=== PATIENT | female | born 1950 | race Caucasian/White ===

== ENCOUNTER 2021-04-04 10:51 | Outpatient (REF) | payer OTHER, SELFPAY ==
[2021-04-04 13:50] LABS: Hemoglobin 12.8 g/dl (12.0-16.0); Mean Corpuscular HGB Conc 32.8 g/dl (31.0-35.0); Mean Corpuscular Hemoglobin 30.5 pg (27.0-33.0); Mean Corpuscular Volume 93.1 fL (80-98); Mean Platelet Volume 10.4 fL (9.4-12.3); Platelet Count 272 X10*3/uL (160-400); Red Blood Count 4.19 X10*6/uL (4.20-5.50); Red Cell Distribution Width 14.8 % (11.0-16.0); White Blood Count 6.9 X10*3/uL (4.8-10.8)
[2021-04-04 14:27] LABS: Alanine Aminotransferase 26 U/L (0-31); Albumin Level 4.2 g/dL (3.5-5.0); Alkaline Phosphatase 85 U/L (39-117); Anion Gap 13 (12-20); Aspartate Amino Transferase 25 U/L (5-31); Bilirubin Total 0.5 mg/dL (0.0-1.0); Blood Urea Nitrogen 22 mg/dL (9-16); C Reactive Protein 0.54 mg/dL (< or = 0.50); Calcium 9.3 mg/dL (8.4-10.2); Carbon Dioxide 24 mmol/L (22-29); Chloride 106 mmol/L (96-108); Estimated Glomerular Filt Rate 40; Glucose Random 88 mg/dL (60-115); Potassium 4.9 mmol/L (3.3-5.1); Sodium 138 mmol/L (135-145); Total Protein 7.4 g/dL (6.5-8.0)
== END 2021-04-04 10:52 | disposition home or self-care (01) ==
LOC: HO.HMGCLDS 10:51
PROVIDERS: PCP Internal Medicine; Visit Provider Internal Medicine
DX: B02.9 Zoster without complications (principal); I10 Essential (primary) hypertension
CPT/HCPCS: 36415; 80053; 85027; 86140

== ENCOUNTER 2021-07-28 09:43 | Outpatient (REF) | payer OTHER, SELFPAY ==
[2021-07-28 11:42] LABS: Hematocrit 38.7 % (37-47); Hemoglobin 12.6 g/dl (12.0-16.0); Mean Corpuscular HGB Conc 32.6 g/dl (31.0-35.0); Mean Corpuscular Hemoglobin 31.2 pg (27.0-33.0); Mean Corpuscular Volume 95.8 fL (80-98); Mean Platelet Volume 10.8 fL (9.4-12.3); Platelet Count 279 X10*3/uL (160-400); Red Blood Count 4.04 X10*6/uL (4.20-5.50); Red Cell Distribution Width 13.6 % (11.0-16.0); White Blood Count 7.5 X10*3/uL (4.8-10.8)
[2021-07-28 11:44] LABS: Alanine Aminotransferase 18 U/L (0-31); Albumin Level 4.2 g/dL (3.5-5.0); Alkaline Phosphatase 90 U/L (39-117); Anion Gap 13 (12-20); Aspartate Amino Transferase 18 U/L (5-31); Bilirubin Total 0.5 mg/dL (0.0-1.0); Blood Urea Nitrogen 22 mg/dL (9-16); Calcium 9.6 mg/dL (8.4-10.2); Carbon Dioxide 23 mmol/L (22-29); Chloride 109 mmol/L (96-108); Cholesterol 208 mg/dL; Estimated Glomerular Filt Rate 40; Glucose Fasting 88 mg/dL (60-99); HDL Cholesterol 45 mg/dL; LDL Cholesterol Calculated 131 mg/dl; Potassium 4.7 mmol/L (3.3-5.1); Sodium 140 mmol/L (135-145); Total Protein 7.1 g/dL (6.5-8.0); Triglycerides 164 mg/dL
[2021-07-28 12:06] LABS: TSH reflex Free T4 2.31 uIU/mL (0.32-4.0)
== END 2021-07-28 09:44 | disposition home or self-care (01) ==
LOC: HO.HMGCLDS 09:43
PROVIDERS: PCP Internal Medicine; Visit Provider Internal Medicine
DX: E66.3 Overweight (principal); I10 Essential (primary) hypertension; M47.816 Spondylosis without myelopathy or radiculopathy, lumbar region
CPT/HCPCS: 36415; 80053; 80061; 84443; 85027

== ENCOUNTER 2022-03-10 13:09 | Emergency (ER) | payer OTHER, SELFPAY ==
--- NOTE | ~2022-03-10 | US_ITS ---
EXAMINATION: US VENOUS ULTRASOUND WITH DOPPLER LOWER EXTREMITY, LEFT CLINICAL INFORMATION: Swelling and pain COMPARISON: None TECHNIQUE: Ultrasound of the deep veins is performed from the hip to the calf with compression sonography and color and pulse Doppler assessment. Spectral analysis with color-flow imaging is performed. FINDINGS: There is normal venous compression and respiratory variation and augmented flow. The visualized common femoral vein, superficial femoral vein, profunda femoral vein, popliteal vein shows no evidence of deep venous thrombosis. Limited visualization/evaluation of the calf veins. There is no significant popliteal fossa cyst. . If the patient's symptoms persist, followup ultrasound in 5 days 7 days might be of value to exclude proximal propagation from a non-visualized calf vein. US/US venous duplex LE LT IMPRESSION: Evaluation limited by patient body habitus. No DVT demonstrated in the left lower extremity, extending from the common femoral vein to the popliteal vein. The calf veins are not well evaluated. If the patient's symptoms persist, followup ultrasound in 5 days 7 days might be of value to exclude proximal propagation from a non-visualized calf vein.
--- NOTE | ~2022-03-10 | CT_ITS ---
EXAMINATION: CT ABDOMEN AND PELVIS WITHOUT CONTRAST CLINICAL INFORMATION: Acute kidney insufficiency COMPARISON: None TECHNIQUE: Multidetector volumetric imaging was performed from the superior aspect of the liver through the pubic symphysis. Sagittal and coronal reformatted images were obtained on the technologist's workstation. This CT examination was performed using dose optimization techniques as appropriate, variously including the following: *Automated exposure control *Adjustment of mA and/or kV according to patient size (this includes techniques or standardized protocols for targeted exams where dose is matched to indication/reason for exam; i.e. extremities or head) *Use of iterative reconstruction technique DLP: 973 mGy-cm FINDINGS: LUNG BASES: The visualized lung bases are unremarkable. No pleural or pericardial effusion. LIVER, GALLBLADDER, AND BILIARY TREE: The liver is normal in size, shape, and attenuation. No focal hepatic lesion or biliary ductal dilatation is present. The gallbladder is unremarkable with no evidence of radiopaque gallstones, gallbladder wall thickening, or obvious pericholecystic inflammatory changes. PANCREAS: Unremarkable. SPLEEN: Unremarkable. ADRENAL GLANDS: Unremarkable. KIDNEYS AND URETERS: Right kidney: There is a 3 mm nonobstructing calculus within the interpolar region. No definite cortical thinning is appreciated. No hydronephrosis is seen. No focal lesion is appreciated. Right ureter appears unremarkable. Left kidney: There are 2, 2 mm nonobstructing calculi seen within the interpolar region. No hydronephrosis is present. No cortical thinning is appreciated. No solid lesions seen. Left ureter appears unremarkable. BLADDER: Unremarkable. GASTROINTESTINAL TRACT: No dilated loops of large or small bowel evident. No free air or free fluid is seen. No pericolonic inflammatory change. Appendix appears unremarkable. ABDOMINAL WALL: No significant hernia is appreciated. LYMPH NODES: No lymphadenopathy appreciated. VASCULAR: There is mild aortoiliac calcified plaque present. Calcified plaque is seen within both common femoral arteries and superficial femoral artery. No abdominal aortic aneurysm. PELVIC VISCERA: Unremarkable. OSSEOUS STRUCTURES: No suspicious destructive bony lesions identified. There is multilevel degenerative cysts disease seen throughout the lower thoracic and lumbar spine. CT/CT abdomen pelvis wo con IMPRESSION: Bilateral nephrolithiasis without evidence of obstructive uropathy or significant cortical thinning.
[2022-03-10 13:13] VITALS: PULSE 81; RESP 19; TEMP 36.6; O2SAT 98; BMI 39.1
--- NOTE | 2022-03-10 14:43 | ED_ITS ---
HPI - Extremity Problem General Chief complaint: Extremity Injury, Lower <ROSARIO Oropeza Last Filed: 03/10/22 18:25> Stated complaint: possible blood clot <ROSARIO Oropeza Last Filed: 03/10/22 18:25> Time Seen by Provider: 03/10/22 13:17 <ROSARIO Oropeza Last Filed: 03/10/22 18:25> Source: patient <ROSARIO Oropeza Last Filed: 03/10/22 18:25> Mode of arrival: ambulatory <ROSARIO Oropeza Last Filed: 03/10/22 18:25> Limitations: no limitations <ROSARIO Oropeza Last Filed: 03/10/22 18:25> History of Present Illness HPI Narrative: 71-year-old female with a past medical history of hypertension, hyperlipidemia, obesity, shingles, degenerative joint disease, TMJ since who is presenting to the ED with complaints of atraumatic left leg pain at the p osterior aspect/Calf for the past few days worse today. Reports that she feels pins and needles. She reports that she went to the urgent care and they recommended her to come here to have an ultrasound to rule out a DVT. She does report approximately 1-2 weeks ago she was dizzy in the shower and she had to lower herself down she does not believe that she injured her left leg although she went to urgent care and was told that she had a ear infection and was placed on antibiotics at that time. She does not remember if her left leg was hurt at that time She denies any fevers, chills, dizziness, headaches, neck pain/stiffness, trouble swallowing or breathing, chest pain or shortness of breath, dyspnea on exertion, orthopnea, palpitations, paresthesia, cough, sputum production, weight gain, history of PVD, recent travel or surgery, recent immobilization, history of hypercoagulation disorder or DVT or PE, any estrogen usage or any other symptoms complaints or concerns at this time. <ROSARIO Oropeza Last Filed: 03/10/22 18:25> MD Complaint: extremity pain and extremity swelling <ROSARIO Oropeza Last Filed: 03/10/22 18:25> Onset (ago): day(s) (Past few days ) <ROSARIO Oropeza Last Filed: 03/10/22 18:25> Pain Consistency: constant <ROSARIO Oropeza - Last Filed: 03/10/22 18:25> Location: left, lower extremity and knee <ROSARIO Oropeza - Last Filed: 03/10/22 18:25> Quality: aching and constant <ROSARIO Oropeza - Last Filed: 03/10/22 18:25> Radiation: distal <ROSARIO Oropeza - Last Filed: 03/10/22 18:25> Relieving factors: nothing <ROSARIO Oropeza Last Filed: 03/10/22 18:25> Exacerbating factors: palpation <ROSARIO Oropeza Last Filed: 03/10/22 18:25> Associated symptoms: denies other symptoms <ROSARIO Oropeza - Last Filed: 03/10/22 18:25> Related Data Home medications: Home Medications Medication Instructions Recorded Confirmed fluticasone propionate 50 1 spray INTRANASAL BID PRN 08/09/20 02/14/22 mcg/actuation nasal spray,suspension glucosamine sulfate 750 mg tablet 750 mg PO ONCE tab 08/09/20 02/14/22 hydroxyzine HCl 25 mg tablet 25 mg PO BID PRN 08/09/20 02/14/22 multivitamin 1 tab PO DAILY 08/09/20 02/14/22 amoxicillin 500 mg capsule 500 mg PO TID 02/14/22 02/14/22 Previous Rx's Medication Instructions Recorded tuvcisye-ezlbuvpud-ilbtddibp 3.5 4 drp OTIC (EAR) LEFT TID 10 Days 03/20/21 mg-10,000 unit/mL-1 % ear #10 ml drops,susp amlodipine 10 mg tablet 10 mg PO DAILY #90 tab 08/08/21 lorazepam 0.5 mg tablet 0.5 mg PO DAILY PRN #10 tab 08/15/21 lisinopril 20 mg tablet 20 mg PO DAILY #90 tab 11/07/21 cyclobenzaprine 10 mg tablet 10 mg PO Q8H PRN #14 tab 03/10/22 naproxen 500 mg tablet 500 mg PO BID PRN #14 tab 03/10/22 <ROSARIO Oropeza Last Filed: 03/10/22 18:25> Allergies/Adverse reactions: Allergies Allergy/AdvReac Type Severity Reaction Status Date / Time erythromycin base Allergy Unknown upset Verified 02/14/22 10:23 stomach nausea <ROSARIO Oropeza Last Filed: 03/10/22 18:25> Review of Systems Review of Systems: Constitutional : No Weight loss, No Fever, No Chills, No Night Sweats, No Fatigue, No Malaise ENT/Mouth : No Hearing loss, No Ear Pain, No Nasal Congestion, No Sinus Pain, No Hoarseness, No sore throat, No Rhinorrhea, No Swallowing Difficulty Eyes: No Eye Pain, No Swelling, No Redness, No Foreign Body, No Discharge, No Vision Changes Cardiovascular : + LLE pain/swelling, No Chest Pain, No SOB, No Dyspnea on Exertion, No Orthopnea, No Palpitations Respiratory : No Cough, No Sputum, No Wheezing, No Smoke Exposure, No Dyspnea Gastrointestinal : No Nausea, No Vomiting, No Diarrhea, No Constipation, No abdominal Pain, No Hematochezia, No Melena Genitourinary : no irregular bleeding, No Dysuria, No Urinary Frequency, No Hematuria, No Urinary Incontinence, No Urgency, No Flank Pain, No Urinary Flow Changes, No Hesitancy Musculoskeletal : No joint pain, No Myalgias, No Joint Swelling Skin : No Skin Lesions, No rash Neuro : No Weakness, No Numbness, No Paresthesias, No Loss of Consciousness, No Dizziness, No Headache Psych : No Anxiety/Panic, No Depression, No SI/HI/AH/VH, No Social Issues, Heme/Lymph: No Bruising, No Bleeding,No Lymphadenopathy Endocrine : No Polyuria, No Polydipsia, No Temperature Intolerance <ROSARIO Oropeza Last Filed: 03/10/22 18:25> Yes all other systems are reviewed and are negative <ROSARIO Oropeza - Last Filed: 03/10/22 18:25> [facility] Past Medical History Attestation statement: The following information was validated with the patient. <ROSARIO Oropeza Last Filed: 03/10/22 18:25> Source: nursing notes reviewed <ROSARIO Oropeza Last Filed: 03/10/22 18:25> Medical History: Medical History Annual physical exam Anxiety DJD (degenerative joint disease), lumbar HTN (hypertension) Hyperlipemia Mammogram normal Overweight Vaginal bleeding <ROSARIO Oropeza - Last Filed: 03/10/22 18:25> Surgical History: Surgical History H/O colonoscopy No pertinent past surgical history <ROSARIO Oropeza - Last Filed: 03/10/22 18:25> Family History Family History: Family History Father No problems noted. Mother HTN (hypertension) <ROSARIO Oropeza - Last Filed: 03/10/22 18:25> Social History Social History: Social History Housing: House Alcohol intake: current Alcohol intake frequency: a few times a month Patient Tobacco Use Status: Never used Tobacco e-Cigarette/Vaping Use: Never Used Second Hand Smoke Exposure: No Advance Directives: Yes Advance Directives Information Provided: No Advance Directives on File: No service: No Current occupational status: retired Cognitive needs: No Hearing needs: No Vision needs: Yes <ROSARIO Oropeza - Last Filed: 03/10/22 18:25> Physical Exam Vital Signs: Vital Signs: Last Vital Signs Temp 98 F 03/10/22 13:13 Pulse 75 03/10/22 19:20 Resp 14 03/10/22 19:20 BP 139/83 03/10/22 19:20 Pulse Ox 96 03/10/22 19:20 BMI result Body Mass Index 39.1 vital signs have been reviewed as normal and appeared to be correct. Blood pressure normal. Heart rate normal. Respiration rate normal. Temperature n ormal. Oxygen saturation normal. <ROSARIO Oropeza - Last Filed: 03/10/22 18:25> Vital Signs: Last Vital Signs Temp 98 F 03/10/22 13:13 Pulse 75 03/10/22 19:20 Resp 14 03/10/22 19:20 BP 139/83 03/10/22 19:20 Pulse Ox 96 03/10/22 19:20 BMI result Body Mass Index 39.1 <ROSARIO Awad - Last Filed: 03/10/22 21:23> Appearance: Alert. Oriented X3. No acute distress. Head: Normal external exam. Normocephalic. Atraumatic. Eyes: PERRLA. EOMI. Conjunctiva and sclera normal. Eyelids normal. ENT: Pharynx normal. Uvula midline. Moist mucous membranes. No lesions/ulcerations or masses noted on the tongue. Normal voice. No trismus noted. No drooling noted. No muffled voice noted. Neck: Normal inspection. Neck supple. FROM. No adenopathy. Thyroid Normal. No meningeal signs. No neck mass noted. CVS: Normal heart rate and rhythm. Heart sound normal. Pulses normal throughout. No murmurs/rales/gallops. Respiratory: No respiratory distress. Painless inspiration. Breath sounds normal. No wheezes/rales/rhonchi noted. Chest nontender. No accessory muscle usage noted or decreased air movement noted Abdomen: Soft and nontender. Bowel sounds normal in all 4 quadrants. No distention noted. No organomegaly noted. No visible injury noted. Back: Full range of motion noted. No signs of trauma. Patient neuro intact bilaterally and distally on all 4 extremities. Patient's reflexes intact bilaterally and distally on all 4 extremities. No rashes/lesion/induration/fluctuance or signs of infection noted. Skin: Skin warm and dry. Normal skin color. Normal skin turgor. No rashes/lesions/lacerations noted. Extremities: + left calf pain. No right Calf pain. No lower extremity edema. Extremities exhibit normal range of motion and nontender. Neuro: Oriented X 3. No motor deficit. No sensory deficit. Reflexes normal. Normal steady gait. No focal neuro deficits noted. CN's II-XII intact bilaterally? Vascular: + radial pulses/+ 2 distal pedal pulses/+2 dorsalis pedis b/l. Normal cap refill. No cyanosis noted to upper extremity nails and lower extremity toes nails. <ROSARIO Oropeza - Last Filed: 03/10/22 18:25> Course Course Course Narrative: 15pm - 71 year-old female presenting to the ED with complaints of atraumatic left leg pain at the posterior aspect/Calf for the past few days worse today. Reports that she feels pins and needles. She reports that she went to the urgent care and they recommended her to come here to have an ultrasound to rule out a DVT. She does report approximately 1-2 weeks ago she was dizzy in the shower and she had to lower herself down she does not believe that she injured her left leg although she went to urgent care and was told that she had a ear infection and was placed on antibiotics at that time. She does not remember if her left leg was hurt at that time Patient had ultrasound of her left lower extremity while she was in the waiting room and the ultrasound was limited due to body habitus although a revealed that the patient does not have any DVT in the left lower extremity extending from the common femoral vein to the popliteal vein. Although the calf veins are not well evaluated. Therefore they reported that if the patient's symptoms persisted she should had a repeat ultrasound in 5-7 days to exclude proximal propagation from a nonvisualized calf vein Plan: Therefore at this time will obtain labs including a D-dimer and provide naproxen and Flexeril and re-evaluate <ROSARIO Oropeza - Last Filed: 03/10/22 18:25> Reevaluation(s) Reevaluation #1: - labs reviewed patient with RBC of 4 which is similar compared to prior. Chloride 111. Carbon dioxide 18. BUN/creatinine 37/1.47 this is new when compared to prior. BNP at 134 otherwise all other labs including D-dimer negative and within normal limits. Therefore at this time I explained to the patient that I would want a urine and will obtain a CT scan of her abdomen pelvis without contrast to evaluate for any acute processes that can be causing her FAUSTO due to she reports she drinks lots of water. Will also give a L of IV fluids. Patient understands agrees with this plan. <ROSARIO Oropeza - Last Filed: 03/10/22 18:25> Time: 15:36 <ROSARIO Oropeza - Last Filed: 03/10/22 18:25> Reevaluation #2: - CT scan abdomen pelvis revealed bilateral nephrolithiasis otherwise no other acute processes only chronic changes. UA within normal limits no evidence of UTI - therefore patient most likely dehydration therefore patient going to be receiving 2 L of IV fluids then we will recheck the patient's chemistry if her BUN and creatinine improved patient can be discharged with follow-up with her PCP. Patient understands agrees with this plan. Sign out to MERRITT Colindres pending repeat BMP for BUN/Cr. <ROSARIO Oropeza - Last Filed: 03/10/22 18:25> Time: 17:40 <ROSARIO Oropeza - Last Filed: 03/10/22 18:25> Reevaluation #3: Patient is feeling well, requesting to go home. Repeat BMP with improvement in BUN and creatinine, appears to be around patient's baseline. Patient is tolerating p.o. fluids. Advised her to follow-up with her PCP, return with new or worsening symptoms. At this time I feel comfortable w/ disc harge home <ROSARIO Awad - Last Filed: 03/10/22 21:23> Time: 21:23 <ROSARIO Awad - Last Filed: 03/10/22 21:23> MDM - Extremity (Nontraumatic) Medical Records Attestation: I reviewed the patient's medical records. <ROSARIO Oropeza Last Filed: 03/10/22 18:25> Lab Data Attestation: I reviewed the patient's lab results. <ROSARIO Oropeza - Last Filed: 03/10/22 18:25> Result diagrams: : 03/10/22 15:04 03/10/22 20:37 <ROSARIO Oropeza - Last Filed: 03/10/22 18:25> Labs: Lab Results 03/10/22 03/10/22 03/10/22 Range/Units 15:04 15:04 15:04 WBC 7.7 (4.8-10.8) X10*3/uL RBC 4.00 L (4.20-5.50) X10*6/uL Hgb 12.4 (12.0-16.0) g/dl Hct 37.9 (37.0-47.0) % MCV 94.8 (80.0-98.0) fL MCH 31.0 (27.0-33.0) pg MCHC 32.7 (31.0-35.0) g/dl RDW 14.4 (11.0-16.0) % Plt Count 255 (160-400) X10*3/uL MPV 8.9 L (9.4-12.3) fL Immature Gran % (Auto) 0.1 (0.0-0.4) % Neut % (Auto) 77.2 H (45-73) % Lymph % (Auto) 14.1 L (20-40) % [place] % (Auto) 7.3 (2-11) % Eos % (Auto) 0.9 (0-4) % Baso % (Auto) 0.4 (0-2) % Lymph # (Auto) 1.1 L (1.2-4.9) X10*3/uL [place] # (Auto) 0.6 (0.1-1.2) X10*3/uL Eos # (Auto) 0.1 (0.0-0.4) X10*3/uL Baso # (Auto) 0.0 (0.0-0.2) X10*3/uL Abs Immat Gran (auto) 0.01 (0.00-0.03) X10*3/uL Absolute Neuts (auto) 6.0 (2.0-8.3) x10*3/uL Absolute Nucleated RBC 0.000 (0.0-0.012) X10*3/uL Nucleated RBC % (auto) 0.0 (0.0-0.2) /100WBC PT 10.4 (9.9-13.0) SEC INR 0.9 (0.9-1.1) D-Dimer High Sensitivty 168 NG/ML Sodium 139 (135-145) mmol/L Potassium 4.9 (3.3-5.1) mmol/L Chloride 111 H (96-108) mmol/L Carbon Dioxide 18 L (22-29) mmol/L Anion Gap 15 (12-20) BUN 37 H (9-16) mg/dL Creatinine 1.47 H (0.5-1.4) mg/dL Estim Creat Clear Calc 49.3 Estimated GFR 35 Random Glucose 105 (60-115) mg/dL Calcium 9.5 (8.4-10.2) mg/dL Magnesium 2.3 (1.6-2.6) mg/dL Total Bilirubin 0.2 (0.0-1.0) mg/dL AST 20 (5-31) U/L ALT 28 (0-31) U/L Alkaline Phosphatase 69 D (39-117) U/L Total Creatine Kinase 90 (26-140) U/L B-Natriuretic Peptide (<100) pg/mL Total Protein 7.1 (6.5-8.0) g/dL Albumin 4.2 (3.5-5.0) g/dL Urine Color Urine Appearance Urine pH (5.0-8.0) Ur Specific [place] (1.005-1.025) Urine Protein (NEG-TRACE) MG/DL Urine Glucose (UA) (NEG) MG/DL Urine Ketones (NEG) MG/DL Urine Blood (NEG) Urine Nitrite (NEG) Ur Leukocyte Esterase (NEG) 03/10/22 03/10/22 03/10/22 Range/Units 15:04 16:57 20:37 WBC (4.8-10.8) X10*3/uL RBC (4.20-5.50) X10*6/uL Hgb (12.0-16.0) g/dl Hct (37.0-47.0) % MCV (80.0-98.0) fL MCH (27.0-33.0) pg MCHC (31.0-35.0) g/dl RDW (11.0-16.0) % Plt Count (160-400) X10*3/uL MPV (9.4-12.3) fL Immature Gran % (Auto) (0.0-0.4) % Neut % (Auto) (45-73) % Lymph % (Auto) (20-40) % [place] % (Auto) (2-11) % Eos % (Auto) (0-4) % Baso % (Auto) (0-2) % Lymph # (Auto) (1.2-4.9) X10*3/uL [place] # (Auto) (0.1-1.2) X10*3/uL Eos # (Auto) (0.0-0.4) X10*3/uL Baso # (Auto) (0.0-0.2) X10*3/uL Abs Immat Gran (auto) (0.00-0.03) X10*3/uL Absolute Neuts (auto) (2.0-8.3) x10*3/uL Absolute Nucleated RBC (0.0-0.012) X10*3/uL Nucleated RBC % (auto) (0.0-0.2) /100WBC PT (9.9-13.0) SEC INR (0.9-1.1) D-Dimer High Sensitivty NG/ML Sodium 141 (135-145) mmol/L Potassium 4.4 (3.3-5.1) mmol/L Chloride 116 H (96-108) mmol/L Carbon Dioxide 16 L (22-29) mmol/L Anion Gap 13 (12-20) BUN 32 H (9-16) mg/dL Creatinine 1.28 (0.5-1.4) mg/dL Estim Creat Clear Calc 56.6 Estimated GFR 41 Random Glucose 120 H (60-115) mg/dL Calcium 8.6 D (8.4-10.2) mg/dL Magnesium (1.6-2.6) mg/dL Total Bilirubin (0.0-1.0) mg/dL AST (5-31) U/L ALT (0-31) U/L Alkaline Phosphatase (39-117) U/L Total Creatine Kinase (26-140) U/L B-Natriuretic Peptide 134 H (<100) pg/mL Total Protein (6.5-8.0) g/dL Albumin (3.5-5.0) g/dL Urine Color STRAW Urine Appearance CLEAR Urine pH 5.5 (5.0-8.0) Ur Specific [place] 1.015 (1.005-1.025) Urine Protein NEG (NEG-TRACE) MG/DL Urine Glucose (UA) NEG (NEG) MG/DL Urine Ketones NEG (NEG) MG/DL Urine Blood NEG (NEG) Urine Nitrite NEG (NEG) Ur Leukocyte Esterase NEG (NEG) <ROSARIO Oropeza - Last Filed: 03/10/22 18:25> Lab Results 03/10/22 03/10/22 03/10/22 Range/Units 15:04 15:04 15:04 WBC 7.7 (4.8-10.8) X10*3/uL RBC 4.00 L (4.20-5.50) X10*6/uL Hgb 12.4 (12.0-16.0) g/dl Hct 37.9 (37.0-47.0) % MCV 94.8 (80.0-98.0) fL MCH 31.0 (27.0-33.0) pg MCHC 32.7 (31.0-35.0) g/dl RDW 14.4 (11.0-16.0) % Plt Count 255 (160-400) X10*3/uL MPV 8.9 L (9.4-12.3) fL Immature Gran % (Auto) 0.1 (0.0-0.4) % Neut % (Auto) 77.2 H (45-73) % Lymph % (Auto) 14.1 L (20-40) % [place] % (Auto) 7.3 (2-11) % Eos % (Auto) 0.9 (0-4) % Baso % (Auto) 0.4 (0-2) % Lymph # (Auto) 1.1 L (1.2-4.9) X10*3/uL [place] # (Auto) 0.6 (0.1-1.2) X10*3/uL Eos # (Auto) 0.1 (0.0-0.4) X10*3/uL Baso # (Auto) 0.0 (0.0-0.2) X10*3/uL Abs Immat Gran (auto) 0.01 (0.00-0.03) X10*3/uL Absolute Neuts (auto) 6.0 (2.0-8.3) x10*3/uL Absolute Nucleated RBC 0.000 (0.0-0.012) X10*3/uL Nucleated RBC % (auto) 0.0 (0.0-0.2) /100WBC PT 10.4 (9.9-13.0) SEC INR 0.9 (0.9-1.1) D-Dimer High Sensitivty 168 NG/ML Sodium 139 (135-145) mmol/L Potassium 4.9 (3.3-5.1) mmol/L Chloride 111 H (96-108) mmol/L Carbon Dioxide 18 L (22-29) mmol/L Anion Gap 15 (12-20) BUN 37 H (9-16) mg/dL Creatinine 1.47 H (0.5-1.4) mg/dL Estim Creat Clear Calc 49.3 Estimated GFR 35 Random Glucose 105 (60-115) mg/dL Calcium 9.5 (8.4-10.2) mg/dL Magnesium 2.3 (1.6-2.6) mg/dL Total Bilirubin 0.2 (0.0-1.0) mg/dL AST 20 (5-31) U/L ALT 28 (0-31) U/L Alkaline Phosphatase 69 D (39-117) U/L Total Creatine Kinase 90 (26-140) U/L B-Natriuretic Peptide (<100) pg/mL Total Protein 7.1 (6.5-8.0) g/dL Albumin 4.2 (3.5-5.0) g/dL Urine Color Urine Appearance Urine pH (5.0-8.0) Ur Specific [place] (1.005-1.025) Urine Protein (NEG-TRACE) MG/DL Urine Glucose (UA) (NEG) MG/DL Urine Ketones (NEG) MG/DL Urine Blood (NEG) Urine Nitrite (NEG) Ur Leukocyte Esterase (NEG) 03/10/22 03/10/22 03/10/22 Range/Units 15:04 16:57 20:37 WBC (4.8-10.8) X10*3/uL RBC (4.20-5.50) X10*6/uL Hgb (12.0-16.0) g/dl Hct (37.0-47.0) % MCV (80.0-98.0) fL MCH (27.0-33.0) pg MCHC (31.0-35.0) g/dl RDW (11.0-16.0) % Plt Count (160-400) X10*3/uL MPV (9.4-12.3) fL Immature Gran % (Auto) (0.0-0.4) % Neut % (Auto) (45-73) % Lymph % (Auto) (20-40) % [place] % (Auto) (2-11) % Eos % (Auto) (0-4) % Baso % (Auto) (0-2) % Lymph # (Auto) (1.2-4.9) X10*3/uL [place] # (Auto) (0.1-1.2) X10*3/uL Eos # (Auto) (0.0-0.4) X10*3/uL Baso # (Auto) (0.0-0.2) X10*3/uL Abs Immat Gran (auto) (0.00-0.03) X10*3/uL Absolute Neuts (auto) (2.0-8.3) x10*3/uL Absolute Nucleated RBC (0.0-0.012) X10*3/uL Nucleated RBC % (auto) (0.0-0.2) /100WBC PT (9.9-13.0) SEC INR (0.9-1.1) D-Dimer High Sensitivty NG/ML Sodium 141 (135-145) mmol/L Potassium 4.4 (3.3-5.1) mmol/L Chloride 116 H (96-108) mmol/L Carbon Dioxide 16 L (22-29) mmol/L Anion Gap 13 (12-20) BUN 32 H (9-16) mg/dL Creatinine 1.28 (0.5-1.4) mg/dL Estim Creat Clear Calc 56.6 Estimated GFR 41 Random Glucose 120 H (60-115) mg/dL Calcium 8.6 D (8.4-10.2) mg/dL Magnesium (1.6-2.6) mg/dL Total Bilirubin (0.0-1.0) mg/dL AST (5-31) U/L ALT (0-31) U/L Alkaline Phosphatase (39-117) U/L Total Creatine Kinase (26-140) U/L B-Natriuretic Peptide 134 H (<100) pg/mL Total Protein (6.5-8.0) g/dL Albumin (3.5-5.0) g/dL Urine Color STRAW Urine Appearance CLEAR Urine pH 5.5 (5.0-8.0) Ur Specific [place] 1.015 (1.005-1.025) Urine Protein NEG (NEG-TRACE) MG/DL Urine Glucose (UA) NEG (NEG) MG/DL Urine Ketones NEG (NEG) MG/DL Urine Blood NEG (NEG) Urine Nitrite NEG (NEG) Ur Leukocyte Esterase NEG (NEG) <ROSARIO Awad - Last Filed: 03/10/22 21:23> Imaging Data Venous duplex ultrasound of left lower: Attestation: I personally reviewed and interpreted this imaging study as follows: <ROSARIO Oropeza - Last Filed: 03/10/22 18:25> Radiologist's impression: FINDINGS: There is normal venous compression and respiratory variation and augmented flow. The visualized common femoral vein, superficial femoral vein, profunda femoral vein, popliteal vein shows no evidence of deep venous thrombosis. Limited visualization/evaluation of the calf veins. There is no significant popliteal fossa cyst. . If the patient's symptoms persist, followup ultrasound in 5 days 7 days might be of value to exclude proximal propagation from a non-visualized calf vein. US/US venous duplex LE LT IMPRESSION: Evaluation limited by patient body habitus. ? No DVT demonstrated in the left lower extremity, extending from the common femoral vein to the popliteal vein. The calf veins are not well evaluated. ? ?If the patient's symptoms persist, followup ultrasound in 5 days 7 days might be of value to exclude proximal propagation from a non-visualized calf vein. <ROSARIO Oropeza - Last Filed: 03/10/22 18:25> CT scan abdomen pelvis without IV contrast: Attestation: I personally reviewed and interpreted this imaging study as follows: <ROSARIO Oropeza - Last Filed: 03/10/22 18:25> Radiologist's impression: FINDINGS: LUNG BASES: The visualized lung bases are unremarkable. No pleural or pericardial effusion. LIVER, GALLBLADDER, AND BILIARY TREE: The liver is normal in size, shape, and attenuation. No focal hepatic lesion or biliary ductal dilatation is present. The gallbladder is unremarkable with no evidence of radiopaque gallstones, gallbladder wall thickening, or obvious pericholecystic inflammatory changes.? PANCREAS: Unremarkable.? SPLEEN: Unremarkable.? ADRENAL GLANDS: Unremarkable.? KIDNEYS AND URETERS: Right kidney: There is a 3 mm nonobstructing calculus within the interpolar region. No definite cortical thinning is appreciated. No hydronephrosis is seen. No focal lesion is appreciated. Right ureter appears unremarkable. Left kidney: There are 2, 2 mm nonobstructing calculi seen within the interpolar region. No hydronephrosis is present. No cortical thinning is appreciated. No solid lesions seen. Left ureter appears unremarkable. BLADDER: Unremarkable.? GASTROINTESTINAL TRACT: No dilated loops of large or small bowel evident. No free air or free fluid is seen. No pericolonic inflammatory change. Appendix appears unremarkable.? ABDOMINAL WALL: No significant hernia is appreciated.? LYMPH NODES: No lymphadenopathy appreciated. VASCULAR: There is mild aortoiliac calcified plaque present. Calcified plaque is seen within both common femoral arteries and superficial femoral artery. No abdominal aortic aneurysm. PELVIC VISCERA: Unremarkable.? OSSEOUS STRUCTURES: No suspicious destructive bony lesions identified. There is multilevel degenerative cysts disease seen throughout the lower thoracic and lumbar spine.? CT/CT abdomen pelvis wo con IMPRESSION: Bilateral nephrolithiasis without evidence of obstructive uropathy or significant cortical thinning.? ? ? <ROSARIO Oropeza - Last Filed: 03/10/22 18:25> Critical Care Time Critical Care Time Critical Care Time: Yes <ROSARIO Oropeza - Last Filed: 03/10/22 18:25> Total Critical Care Time: 60 <ROSARIO Oropeza - Last Filed: 03/10/22 18:25> Attestation: I personally attest to this time spent taking care of the patient <ROSARIO Oropeza - Last Filed: 03/10/22 18:25> Discharge Plan Discharge Clinical Impression: Muscle strain of left lower extremity, FAUSTO (acute kidney injury) <ROSARIO Oropeza - Last Filed: 03/10/22 18:25> Patient Disposition: Home, Self-Care <ROSARIO Oropeza - Last Filed: 03/10/22 18:25> Instructions: Muscle Strain (ED), Acute Kidney Injury (DC) <ROSARIO Oropeza - Last Filed: 03/10/22 18:25> Additional Instructions: Take your medications as prescribed. If you were prescribed antibiotics today, it is important that you take your medication to their entirety, do not skip any doses, do not finish them early. Follow-up with your primary care provider this week. Return to the emergency department with new or worsening symptoms. Such as fevers, chills, chest pain, shortness of breath, nausea, vomiting, dizziness, headache, vision changes, lethargy In case of emergency call 911 CT/CT abdomen pelvis wo con IMPRESSION: Bilateral nephrolithiasis without evidence of obstructive uropathy or significant cortical thinning.? ? US/US venous duplex LE LT IMPRESSION: Evaluation limited by patient body habitus. ? No DVT demonstrated in the left lower extremity, extending from the common femoral vein to the popliteal vein. The calf veins are not well evaluated. ? ?If the patient's symptoms persist, followup ultrasound in 5 days 7 days might be of value to exclude proximal propagation from a non-visualized calf vein. <ROSARIO Oropeza - Last Filed: 03/10/22 18:25> Prescriptions: New naproxen 500 mg tablet 500 mg PO BID PRN (Reason: pain) Qty: 14 0RF cyclobenzaprine 10 mg tablet 10 mg PO Q8H PRN (Reason: Muscle spasm) Qty: 14 0RF No Action amlodipine 10 mg tablet 10 mg PO DAILY Qty: 90 3RF lisinopril 20 mg tablet 20 mg PO DAILY Qty: 90 3RF hydroxyzine HCl 25 mg tablet 25 mg PO BID PRN (Reason: anxiety) 0RF fluticasone propionate 50 mcg/actuation spray,suspension 1 spray intranasal BID PRN (Reason: congestion) 0RF glucosamine sulfate 750 mg tablet 750 mg PO ONCE 0RF Rx Instructions: administer with meals multivitamin Tablet 1 tab PO DAILY 0RF uwmppqyc-aoscrqyud-JR 3.5-10,000-1 mg/mL-unit/mL-% drops,suspension 4 drp otic (ear) left TID 10 Days Qty: 10 0RF lorazepam 0.5 mg tablet 0.5 mg PO DAILY PRN (Reason: anxiety) Qty: 10 0RF amoxicillin 500 mg capsule 500 mg PO TID 0RF <ROSARIO Oropeza - Last Filed: 03/10/22 18:25> Referrals: Viola Mack MD [Primary Care Provider] - 2 days <ROSARIO Oropeza - Last Filed: 03/10/22 18:25>
[2022-03-10] MEDS: NaPROXEN 500 MG TABLET PO (14:59)
[2022-03-10] MEDS: Cyclobenzaprine HCl 10 MG TABLET PO (15:00)
[2022-03-10 15:05] VITALS: BP 140/48; PULSE 74; RESP 18; O2SAT 96
[2022-03-10 15:09] LABS: Basophils Percent Auto 0.4 % (0-2); Eosinophils Absolute Auto 0.1 X10*3/uL (0.0-0.4); Eosinophils Percent Auto 0.9 % (0-4); Hematocrit 37.9 % (37.0-47.0); Hemoglobin 12.4 g/dl (12.0-16.0); Imm Gran Abs Auto 0.01 X10*3/uL (0.00-0.03); Imm Gran Pct Auto 0.1 % (0.0-0.4); Lymphocytes Absolute Auto 1.1 X10*3/uL (1.2-4.9); Lymphocytes Percent Auto 14.1 % (20-40); MANUAL DIFF FLAG NO; Mean Corpuscular HGB Conc 32.7 g/dl (31.0-35.0); Mean Corpuscular Volume 94.8 fL (80.0-98.0); Mean Platelet Volume 8.9 fL (9.4-12.3); Monocytes Absolute Auto 0.6 X10*3/uL (0.1-1.2); Monocytes Percent Auto 7.3 % (2-11); Neutrophils Percent Auto 77.2 % (45-73); Platelet Count 255 X10*3/uL (160-400); Red Cell Distribution Width 14.4 % (11.0-16.0); White Blood Count 7.7 X10*3/uL (4.8-10.8)
[2022-03-10 15:14] LABS: INTERNATIONAL NORM RATIO 0.9 (0.9-1.1); Prothrombin Time 10.4 SEC (9.9-13.0)
[2022-03-10 15:16] LABS: D Dimer High Sensitivity 168 NG/ML
[2022-03-10 15:28] LABS: Alanine Aminotransferase 28 U/L (0-31); Albumin Level 4.2 g/dL (3.5-5.0); Alkaline Phosphatase 69 U/L (39-117); Anion Gap 15 (12-20); Aspartate Amino Transferase 20 U/L (5-31); Bilirubin Total 0.2 mg/dL (0.0-1.0); Blood Urea Nitrogen 37 mg/dL (9-16); Calcium 9.5 mg/dL (8.4-10.2); Carbon Dioxide 18 mmol/L (22-29); Chloride 111 mmol/L (96-108); Creatinine Clr Calc Pharmacy 49.3; Estimated Glomerular Filt Rate 35; Glucose Random 105 mg/dL (60-115); Magnesium 2.3 mg/dL (1.6-2.6); Potassium 4.9 mmol/L (3.3-5.1); Sodium 139 mmol/L (135-145); Total Protein 7.1 g/dL (6.5-8.0)
[2022-03-10 15:39] LABS: B Type Natriuretic Peptide 134 pg/mL (<100)
[2022-03-10 16:13] VITALS: BP 133/31; PULSE 75; RESP 18; O2SAT 96
[2022-03-10 17:03] LABS: Appearance Urine CLEAR; Color Urine STRAW; Glucose Urine UA NEG (NEG); Leukocyte Esterase Urine NEG (NEG); Nitrite Urine NEG (NEG); PH 5.5 (5.0-8.0); Specific Gravity - Urine 1.015 (1.005-1.025); Urine Blood NEG (NEG); Urine Ketones NEG (NEG); Urine Protein NEG (NEG-TRACE)
[2022-03-10] MEDS: 0.9 % Sodium Chloride 1,000 ML 999 ML IVCONT ×2 (17:35→18:41)
[2022-03-10 19:20] VITALS: BP 139/83; PULSE 75; RESP 14; O2SAT 96
[2022-03-10] MEDS: 0.9 % Sodium Chloride 1,000 ML 999 ML IV (20:04)
[2022-03-10 21:10] LABS: Anion Gap 13 (12-20); Blood Urea Nitrogen 32 mg/dL (9-16); Calcium 8.6 mg/dL (8.4-10.2); Carbon Dioxide 16 mmol/L (22-29); Chloride 116 mmol/L (96-108); Creatinine Clr Calc Pharmacy 56.6; Estimated Glomerular Filt Rate 41; Glucose Random 120 mg/dL (60-115); Potassium 4.4 mmol/L (3.3-5.1); Sodium 141 mmol/L (135-145)
[2022-03-10 21:29] VITALS: BP 149/57; PULSE 78; RESP 18; TEMP 36.8; O2SAT 96
== END 2022-03-10 21:44 | disposition home or self-care (01) ==
PROVIDERS: Physician Assistant Medical; Emergency Provider Student in an Organized Health Care Education/Training Program; PCP Internal Medicine
DX: S86.912A Strain of unspecified muscle(s) and tendon(s) at lower leg level, left leg, initial encounter (principal); N17.9 Acute kidney failure, unspecified; R06.02 Shortness of breath; R10.9 Unspecified abdominal pain; M79.662 Pain in left lower leg; X58.XXXA Exposure to other specified factors, initial encounter; Y93.9 Activity, unspecified; Y92.9 Unspecified place or not applicable; Y99.9 Unspecified external cause status; R60.0 Localized edema; Z79.899 Other long term (current) drug therapy
CPT/HCPCS: 36415; 74176; 80048; 80053; 81003; 82550; 83735; 83880; 85025; 85379; 85610; 93971; 96365; 96366; 99284

== ENCOUNTER 2022-07-31 10:26 | Outpatient (REF) | payer OTHER, SELFPAY ==
[2022-07-31 14:07] LABS: Hematocrit 37.2 % (37.0-47.0); Mean Corpuscular HGB Conc 32.3 g/dl (31.0-35.0); Mean Corpuscular Hemoglobin 31.2 pg (27.0-33.0); Mean Corpuscular Volume 96.6 fL (80.0-98.0); Mean Platelet Volume 10.4 fL (9.4-12.3); Platelet Count 292 X10*3/uL (160-400); Red Blood Count 3.85 X10*6/uL (4.20-5.50); Red Cell Distribution Width 14.6 % (11.0-16.0); White Blood Count 8.2 X10*3/uL (4.8-10.8)
[2022-07-31 14:25] LABS: Alanine Aminotransferase 19 U/L (0-31); Albumin Level 4.1 g/dL (3.5-5.0); Alkaline Phosphatase 75 U/L (39-117); Anion Gap 15 (12-20); Aspartate Amino Transferase 19 U/L (5-31); Bilirubin Direct < 0.2 mg/dL (0.0-0.5); Bilirubin Total 0.2 mg/dL (0.0-1.0); Blood Urea Nitrogen 30 mg/dL (9-16); C Reactive Protein 0.35 mg/dL (< or = 0.50); Calcium 9.4 mg/dL (8.4-10.2); Carbon Dioxide 20 mmol/L (22-29); Chloride 110 mmol/L (96-108); Estimated Glomerular Filt Rate 35; Glucose Random 92 mg/dL (60-115); Potassium 5.3 mmol/L (3.3-5.1); Sodium 140 mmol/L (135-145); Total Protein 6.9 g/dL (6.5-8.0)
== END 2022-07-31 10:27 | disposition home or self-care (01) ==
LOC: HO.HMGCLDS 10:26
PROVIDERS: PCP Internal Medicine; Visit Provider Internal Medicine
DX: R51.9 Headache, unspecified (principal)
CPT/HCPCS: 36415; 80048; 80076; 85027; 86140

== ENCOUNTER 2022-08-06 10:26 | Outpatient (REF) | payer OTHER, SELFPAY ==
[2022-08-06 11:56] LABS: Hematocrit 36.2 % (37.0-47.0); Hemoglobin 11.9 g/dl (12.0-16.0); Mean Corpuscular HGB Conc 32.9 g/dl (31.0-35.0); Mean Corpuscular Hemoglobin 31.1 pg (27.0-33.0); Mean Corpuscular Volume 94.5 fL (80.0-98.0); Mean Platelet Volume 9.9 fL (9.4-12.3); Platelet Count 282 X10*3/uL (160-400); Red Blood Count 3.83 X10*6/uL (4.20-5.50); Red Cell Distribution Width 14.3 % (11.0-16.0)
[2022-08-06 12:17] LABS: Alanine Aminotransferase 19 U/L (0-31); Albumin Level 4.2 g/dL (3.5-5.0); Alkaline Phosphatase 81 U/L (39-117); Anion Gap 14 (12-20); Aspartate Amino Transferase 17 U/L (5-31); Bilirubin Total 0.4 mg/dL (0.0-1.0); Blood Urea Nitrogen 30 mg/dL (9-16); Calcium 9.6 mg/dL (8.4-10.2); Carbon Dioxide 23 mmol/L (22-29); Chloride 106 mmol/L (96-108); Cholesterol 256 mg/dL; Estimated Glomerular Filt Rate 38; Glucose Fasting 80 mg/dL (60-99); HDL Cholesterol 61 mg/dL; LDL Cholesterol Calculated 169 mg/dl; Potassium 4.8 mmol/L (3.3-5.1); Sodium 138 mmol/L (135-145); Triglycerides 132 mg/dL
[2022-08-06 12:37] LABS: TSH reflex Free T4 3.08 uIU/mL (0.32-4.0)
== END 2022-08-06 10:27 | disposition home or self-care (01) ==
LOC: HO.HMGCLDS 10:26
PROVIDERS: PCP Internal Medicine; Visit Provider Internal Medicine
DX: E78.5 Hyperlipidemia, unspecified (principal); I10 Essential (primary) hypertension
CPT/HCPCS: 36415; 80053; 80061; 84443; 85027

== ENCOUNTER 2022-08-09 07:02 | Emergency (ER) | payer OTHER, SELFPAY ==
--- NOTE | ~2022-08-09 | CT_ITS ---
EXAMINATION: CT HEAD WITHOUT CONTRAST CLINICAL INFORMATION: Near syncope COMPARISON: None. TECHNIQUE: Contiguous axial imaging was performed from the skull base to vertex without intravenous contrast. This CT examination was performed using dose optimization techniques as appropriate, variously including the following: * Automated exposure control * Adjustment of mA and/or kV according to patient size (this includes techniques or standardized protocols for targeted exams where dose is matched to indication/reason for exam; i.e. extremities or head) Use of iterative reconstruction technique DLP: 607 mGy-cm. FINDINGS: There is no evidence of acute intracranial hemorrhage or territorial infarction. No abnormal mass effect or midline shift is seen. Lala to white matter differentiation is well preserved. No extra-axial fluid collections are identified. No hydrocephalus. No significant volume loss. There is no abnormal attenuation within the brain parenchyma. The osseous structures and soft tissues are normal. The mastoid air cells and visualized portions of the paranasal sinuses are well aerated. CT/CT head/brain wo IV con IMPRESSION: No acute intracranial pathology.
[2022-08-09 07:53] VITALS: BP 151/61; PULSE 75; RESP 12; TEMP 36.4; O2SAT 99; BMI 39.1
[2022-08-09 08:00] VITALS: PULSE 72; RESP 14; O2SAT 99
--- NOTE | 2022-08-09 08:01 | PC.NURSE ---
Pt alert and oriented, respirations even and unlabored. NSR on monitor. Pt states that she had a recent sinus infection and was seen at the [facility] in [place] where she was prescribed antibiotics with positive effect.
--- NOTE | 2022-08-09 08:09 | ED.GENADULT ---
HPI - General Adult General Chief complaint: General Medical Stated complaint: Head Pain Radiating to Neck Heart Racing Time Seen by Provider: 08/09/22 08:05 Source: patient Mode of arrival: ambulatory Limitations: no limitations History of Present Illness HPI narrative: Patient is a 72 year old assigned female at with a history of CKD, HTN, and DJD presenting to the emergency department today with head and neck pain. Patient states that she has been having head and neck pain for the last 3 months. Patient states that at one point she also had nasal congestion and was treated for a sinus infection and that cleared up but the pain has persisted. Patient states that she has previously been to [facility] for her lower back but has never been seen for her neck. Patient denies any dizziness, lightheadedness, abdominal pain, nausea, vomiting, fever, chills, blurry vision, double vision, loss of vision, chest pain, difficulty breathing, shortness of breath, back pain, night sweats, pain with urination, increased urinary frequency, increased urinary urgency, blood in her urine or stool, syncope or a near syncopal episode, recent trauma or falls, bowel incontinence, bladder incontinence, bowel retention, bladder retention, or any other complaints at this time. Onset (ago): month(s) (3) Location: head and neck Radiation: non-radiation Severity: mild Severity scale (1-10): 2 Quality: dull Pain Consistency: intermittent Relieving factors: none Exacerbating factors: none Associated symptoms: denies other symptoms Treatments prior to arrival: none Related Data Home Medications Medication Instructions Recorded Confirmed fluticasone propionate 50 1 spray intranasal BID PRN 08/09/20 02/14/22 mcg/actuation nasal congestion spray,suspension glucosamine sulfate 750 mg tablet 750 mg PO ONCE 08/09/20 02/14/22 hydroxyzine HCl 25 mg tablet 25 mg PO BID PRN anxiety 08/09/20 02/14/22 multivitamin 1 tab PO DAILY 08/09/20 02/14/22 amoxicillin 500 mg capsule 500 mg PO TID 02/14/22 02/14/22 Previous Rx's Medication Instructions Recorded [id number]-wvbkijdra-pbkycbgey 3.5 4 drp otic (ear) left TID 10 days 03/20/21 mg-10,000 unit/mL-1 % ear #10 mL drops,susp lorazepam 0.5 mg tablet 0.5 mg PO DAILY PRN anxiety #10 08/15/21 tabs lisinopril 20 mg tablet 20 mg PO DAILY #90 tabs 11/07/21 cyclobenzaprine 10 mg tablet 10 mg PO Q8H PRN Muscle spasm #14 03/10/22 tabs naproxen 500 mg tablet 500 mg PO BID PRN pain #14 tabs 03/10/22 cyclobenzaprine 10 mg tablet 10 mg PO BEDTIME #14 tabs 07/30/22 meloxicam 15 mg tablet 15 mg PO DAILY #14 tabs 07/30/22 amlodipine 10 mg tablet 10 mg PO DAILY #90 tabs 08/02/22 Allergies Allergy/AdvReac Type Severity Reaction Status Date / Time erythromycin base Allergy Unknown upset Verified 07/30/22 16:24 stomach nausea Review of Systems Constitutional: Constitutional: Reports no additional constitutional complaints, Denies chills, Denies fever(s), Reports headache(s) and Denies night sweats Eyes: Eyes: Reports no additional eye complaints, Denies blurry vision, Denies change in vision, Denies diplopia, Denies eye discharge, Denies loss of vision and Denies eye pain ENT: Denies dizziness, Reports headache(s) and Reports neck pain Cardiovascular: Cardiovascular: Reports no additional cardiovascular complaints, Denies chest pain, Denies lightheadedness, Denies Loss of Consciousness and Denies dyspnea Respiratory: Respiratory: Reports no additional respiratory complaints and Denies dyspnea Gastrointestinal: Gastrointestinal: Reports no additional gastrointestinal complaints, Denies abdominal pain, Denies melena, Denies hematochezia, Denies change in bowel habits and Denies change in stool character Genitourinary: Genitourinary: Denies hematuria, Denies urinary frequency, Denies dysuria, Denies urinary incontinence, Denies urinary hesitancy and Denies urinary urgency Musculoskeletal: Musculoskeletal: Reports no additional musculoskeletal complaints, Reports neck pain, Denies numbness and Denies tingling Neurologic: Denies dizziness, Reports headache(s), Denies loss of vision, Denies numbness and Denies tingling Psychiatric: Psychiatric: Reports no additional psychiatric complaints Endocrine: Endocrine: Reports no additional endocrine complaints Hematologic/Lymphatic: Hematologic/Lymphatic: Reports no additional hematologic/lymphatic complaints Allergic/Immunologic: Allergic/Immunologic: Reports no additional allergic/immunologic complaints PMFSH Past Medical History Attestation statement: The following information was validated with the patient. Source: old records reviewed Medical History Annual physical exam Anxiety DJD (degenerative joint disease), lumbar HTN (hypertension) Hyperlipemia Mammogram normal Overweight Vaginal bleeding Surgical History H/O colonoscopy No pertinent past surgical history Family History Family History Father No problems noted. Mother HTN (hypertension) Social History Social History Housing: House Alcohol intake: current Alcohol intake frequency: a few times a month Patient Tobacco Use Status: Never used Tobacco e-Cigarette/Vaping Use: Never Used Second Hand Smoke Exposure: No Advance Directives: Yes Advance Directives Information Provided: Yes Advance Directives on File: No service: No Current occupational status: retired Cognitive needs: No Hearing needs: No Vision needs: Yes Physical Exam ED Vital Signs: Vital Signs - 24 hr 08/09/22 07:53 08/09/22 08:00 Temperature 97.5 F Pulse Rate 75 72 Respiratory Rate 12 14 Blood Pressure 151/61 H Pulse Oximetry 99 99 Oxygen Delivery Method Room Air Room Air BMI result Body Mass Index 39.1 Const General: cooperative, no acute distress, alert and awake Nutritional Appearance: well nourished Orientation/consciousness: patient oriented x3 Limitations: no limitations [facility]: Yes normal to inspection and Yes atraumatic Ears: hearing grossly normal bilaterally and external ears normal General nose exam: Normal external nose present, no nasal discharge noted and no epistaxis Face and sinus: Yes normal facial exam, No abrasion and No laceration Mouth: Normal oral and palatal mucosa present, no drooling and no muffled voice Eyes General: appearance normal, both eyes and all related structures Periorbital: periorbital findings normal Eyelids: Yes eyelids normal Conjunctivae: conjunctivae normal Pupils: Equal, round and reactive pupils present EOM: EOMs intact bilaterally Neck Neck: Yes normal visual inspection, Yes full ROM and Yes no lymphadenopathy Chest Chest palpation & inspection: normal inspection of the chest Resp Effort & Inspection: normal respiratory effort and able to speak in complete sentences Auscultation: clear to auscultation bilaterally Cardio Rate: regular rate Rhythm: regular rhythm GI Inspection: Yes normal to inspection Neuro General: patient oriented x3 and moves all extremities Cranial nerves: Yes Equal, round and reactive pupils present Cognition (Neuro): normal cognition Motor exam (neuro): 5/5 motor strength present throughout Sensory Exam: Normal double simultaneous stimulation for sensation Coordination: hzvsle-oz-rtfy test normal Extrem General: Yes normal to inspection, Yes full ROM and Yes capillary refill normal Psych Appearance: grossly normal Mental Status: mental status grossly normal Affect: normal affect Attitude: cooperative Thought process: Normal thought process present Thought content: Normal thought content present Insight: Good insight present (Psych) Medical Decision Making MDM Narrative Medical decision making narrative: Patient is a 72 year old assigned female at with a history of CKD, HTN, and DJD presenting to the emergency department today with neck and head pain. Patient's physical exam was unremarkable including a normal neurological examination. Patient's blood work showed an elevated ESR but was otherwise unremarkable. Patient's head CT showed no acute process. Patient's current clinical presentation is most consistent with cervical radiculopathy. I explained my physical exam findings as well as all test results to the patient. I answered all questions asked by the patient. I stressed the importance of the patient taking her medication as prescribed. I stressed the importance of the patient following up with her primary care provider and [facility]. I stressed the importance of the patient returning to the emergency department immediately if her symptoms were to worsen or if she were to develop any dizziness, shortness of breath, difficulty breathing, chest pain, blurry vision, loss of vision, nausea, vomiting, abdominal pain, fever, chills, back pain, or any other complaints. Patient verbalized agreement and understanding with this treatment plan and discharge. Medical Records Medical records reviewed: Yes I reviewed the patient's medical records. Lab Data Lab results reviewed: Yes I reviewed the patient's lab results. Result diagrams: 08/09/22 09:12 08/09/22 09:12 Labs: Lab Results 08/09/22 08/09/22 08/09/22 Range/Units 09:12 09:12 09:12 WBC 8.8 (4.8-10.8) X10*3/uL RBC 3.83 L (4.20-5.50) X10*6/uL Hgb 11.9 L (12.0-16.0) g/dl Hct 36.1 L (37.0-47.0) % MCV 94.3 (80.0-98.0) fL MCH 31.1 (27.0-33.0) pg MCHC 33.0 (31.0-35.0) g/dl RDW 14.2 (11.0-16.0) % Plt Count 257 (160-400) X10*3/uL MPV 9.5 (9.4-12.3) fL Immature Gran % (Auto) 0.2 (0.0-0.4) % Neut % (Auto) 78.9 H (45-73) % Lymph % (Auto) 11.8 L (20-40) % [place] % (Auto) 7.2 (2-11) % Eos % (Auto) 1.4 (0-4) % Baso % (Auto) 0.5 (0-2) % Lymph # (Auto) 1.0 L (1.2-4.9) X10*3/uL [place] # (Auto) 0.6 (0.1-1.2) X10*3/uL Eos # (Auto) 0.1 (0.0-0.4) X10*3/uL Baso # (Auto) 0.0 (0.0-0.2) X10*3/uL Abs Immat Gran (auto) 0.02 (0.00-0.03) X10*3/uL Absolute Neuts (auto) 6.9 (2.0-8.3) x10*3/uL Absolute Nucleated RBC 0.000 (0.0-0.012) X10*3/uL Nucleated RBC % (auto) 0.0 (0.0-0.2) /100WBC ESR 26 H (0-20) MM/HR PT 10.2 (10.0-13.1) SEC INR 0.9 (0.9-1.1) APTT 28.4 (26.0-36.4) SEC Sodium (135-145) mmol/L Potassium (3.3-5.1) mmol/L Chloride (96-108) mmol/L Carbon Dioxide (22-29) mmol/L Anion Gap (12-20) BUN (9-16) mg/dL Creatinine (0.5-1.4) mg/dL Estim Creat Clear Calc Estimated GFR Random Glucose (60-115) mg/dL Calcium (8.4-10.2) mg/dL Total Bilirubin (0.0-1.0) mg/dL AST (5-31) U/L ALT (0-31) U/L Alkaline Phosphatase (39-117) U/L C-Reactive Protein (< or = 0.50) mg/dL Total Protein (6.5-8.0) g/dL Albumin (3.5-5.0) g/dL 08/09/22 Range/Units 09:12 WBC (4.8-10.8) X10*3/uL RBC (4.20-5.50) X10*6/uL Hgb (12.0-16.0) g/dl Hct (37.0-47.0) % MCV (80.0-98.0) fL MCH (27.0-33.0) pg MCHC (31.0-35.0) g/dl RDW (11.0-16.0) % Plt Count (160-400) X10*3/uL MPV (9.4-12.3) fL Immature Gran % (Auto) (0.0-0.4) % Neut % (Auto) (45-73) % Lymph % (Auto) (20-40) % [place] % (Auto) (2-11) % Eos % (Auto) (0-4) % Baso % (Auto) (0-2) % Lymph # (Auto) (1.2-4.9) X10*3/uL [place] # (Auto) (0.1-1.2) X10*3/uL Eos # (Auto) (0.0-0.4) X10*3/uL Baso # (Auto) (0.0-0.2) X10*3/uL Abs Immat Gran (auto) (0.00-0.03) X10*3/uL Absolute Neuts (auto) (2.0-8.3) x10*3/uL Absolute Nucleated RBC (0.0-0.012) X10*3/uL Nucleated RBC % (auto) (0.0-0.2) /100WBC ESR (0-20) MM/HR PT (10.0-13.1) SEC INR (0.9-1.1) APTT (26.0-36.4) SEC Sodium 141 (135-145) mmol/L Potassium 4.9 (3.3-5.1) mmol/L Chloride 109 H (96-108) mmol/L Carbon Dioxide 19 L (22-29) mmol/L Anion Gap 18 (12-20) BUN 25 H (9-16) mg/dL Creatinine 1.46 H (0.5-1.4) mg/dL Estim Creat Clear Calc 49.0 Estimated GFR 35 Random Glucose 98 (60-115) mg/dL Calcium 9.8 (8.4-10.2) mg/dL Total Bilirubin 0.5 (0.0-1.0) mg/dL AST 19 (5-31) U/L ALT 18 (0-31) U/L Alkaline Phosphatase 86 (39-117) U/L C-Reactive Protein 0.80 H (< or = 0.50) mg/dL Total Protein 7.3 (6.5-8.0) g/dL Albumin 4.3 (3.5-5.0) g/dL Imaging Data CT scan - head: Attestation: I personally reviewed and interpreted this imaging study as follows: My impression: No acute process. Radiologist's impression: EXAMINATION: CT HEAD WITHOUT CONTRAST CLINICAL INFORMATION: Near syncope COMPARISON: None. TECHNIQUE: Contiguous axial imaging was performed from the skull base to vertex without intravenous contrast. This CT examination was performed using dose optimization techniques as appropriate, variously including the following: *? Automated exposure control *? Adjustment of mA and/or kV according to patient size (this includes techniques or standardized protocols for targeted exams where dose is matched to indication/reason for exam; i.e. extremities or head) Use of iterative reconstruction technique DLP: 607 mGy-cm. FINDINGS: There is no evidence of acute intracranial hemorrhage or territorial infarction. No abnormal mass effect or midline shift is seen. Lala to white matter differentiation is well preserved. No extra-axial fluid collections are identified. No hydrocephalus. No significant volume loss. There is no abnormal attenuation within the brain parenchyma. The osseous structures and soft tissues are normal. The mastoid air cells and visualized portions of the paranasal sinuses are well aerated. CT/CT head/brain wo IV con IMPRESSION: No acute intracranial pathology. Dictated By: Mac Hines MD Signed By: Electronically signed by Mac Hines MD 08/09/22 0852 Discharge Plan Discharge Clinical Impression: Cervical radiculopathy Patient Disposition: Home, Self-Care Instructions: Cervical Radiculopathy (ED), Neck Pain (ED) Additional Instructions: [facility] Return to the emergency department immediately if your symptoms worsen or if you develop any dizziness, shortness of breath, difficulty breathing, chest pain, blurry vision, loss of vision, nausea, vomiting, abdominal pain, fever, chills, back pain, or any other complaints. Prescriptions: No Action lisinopril 20 mg tablet 20 mg PO DAILY Qty: 90 3RF amlodipine 10 mg tablet 10 mg PO DAILY Qty: 90 3RF naproxen 500 mg tablet 500 mg PO BID PRN (Reason: pain) Qty: 14 0RF cyclobenzaprine 10 mg tablet 10 mg PO Q8H PRN (Reason: Muscle spasm) Qty: 14 0RF hydroxyzine HCl 25 mg tablet 25 mg PO BID PRN (Reason: anxiety) fluticasone propionate 50 mcg/actuation spray,suspension 1 spray intranasal BID PRN (Reason: congestion) glucosamine sulfate 750 mg tablet 750 mg PO ONCE Rx Instructions: administer with meals multivitamin Tablet 1 tab PO DAILY [id number]-iulpcubla-PX 3.5-10,000-1 mg/mL-unit/mL-% drops,suspension 4 drp otic (ear) left TID 10 Days Qty: 10 0RF lorazepam 0.5 mg tablet 0.5 mg PO DAILY PRN (Reason: anxiety) Qty: 10 0RF amoxicillin 500 mg capsule 500 mg PO TID meloxicam 15 mg tablet 15 mg PO DAILY Qty: 14 0RF cyclobenzaprine 10 mg tablet 10 mg PO BEDTIME Qty: 14 0RF Referrals: [facility] [Provider Group] Viola Mack MD [Primary Care Provider] - Interventions: ED Discharge Assessment Last Done: 08/09/22 10:15 Print Language: Malay
[2022-08-09 09:16] LABS: MANUAL DIFF FLAG NO
[2022-08-09 09:18] LABS: Basophils Percent Auto 0.5 % (0-2); Eosinophils Absolute Auto 0.1 X10*3/uL (0.0-0.4); Eosinophils Percent Auto 1.4 % (0-4); Hematocrit 36.1 % (37.0-47.0); Hemoglobin 11.9 g/dl (12.0-16.0); Imm Gran Abs Auto 0.02 X10*3/uL (0.00-0.03); Imm Gran Pct Auto 0.2 % (0.0-0.4); Lymphocytes Percent Auto 11.8 % (20-40); Mean Corpuscular Hemoglobin 31.1 pg (27.0-33.0); Mean Corpuscular Volume 94.3 fL (80.0-98.0); Mean Platelet Volume 9.5 fL (9.4-12.3); Monocytes Absolute Auto 0.6 X10*3/uL (0.1-1.2); Monocytes Percent Auto 7.2 % (2-11); Neutrophils Absolute Auto 6.9 x10*3/uL (2.0-8.3); Neutrophils Percent Auto 78.9 % (45-73); Platelet Count 257 X10*3/uL (160-400); Red Blood Count 3.83 X10*6/uL (4.20-5.50); Red Cell Distribution Width 14.2 % (11.0-16.0); White Blood Count 8.8 X10*3/uL (4.8-10.8)
[2022-08-09 09:24] LABS: INTERNATIONAL NORM RATIO 0.9 (0.9-1.1); Prothrombin Time 10.2 SEC (10.0-13.1)
[2022-08-09 09:27] LABS: Partial Thromboplastin Time 28.4 SEC (26.0-36.4)
[2022-08-09 09:38] LABS: Alanine Aminotransferase 18 U/L (0-31); Albumin Level 4.3 g/dL (3.5-5.0); Alkaline Phosphatase 86 U/L (39-117); Anion Gap 18 (12-20); Aspartate Amino Transferase 19 U/L (5-31); Bilirubin Total 0.5 mg/dL (0.0-1.0); Blood Urea Nitrogen 25 mg/dL (9-16); Calcium 9.8 mg/dL (8.4-10.2); Carbon Dioxide 19 mmol/L (22-29); Chloride 109 mmol/L (96-108); Estimated Glomerular Filt Rate 35; Glucose Random 98 mg/dL (60-115); Potassium 4.9 mmol/L (3.3-5.1); Sodium 141 mmol/L (135-145); Total Protein 7.3 g/dL (6.5-8.0)
[2022-08-09 10:06] LABS: Erythrocyte Sedimentation Rate 26 MM/HR (0-20)
== END 2022-08-09 10:16 | disposition home or self-care (01) ==
PROVIDERS: Physician Assistant Medical; Emergency Provider Emergency Medicine; PCP Internal Medicine
DX: M54.12 Radiculopathy, cervical region (principal); I10 Essential (primary) hypertension; E78.5 Hyperlipidemia, unspecified; Z79.899 Other long term (current) drug therapy
CPT/HCPCS: 36415; 70450; 80053; 85025; 85610; 85652; 85730; 86140; 99284

== ENCOUNTER 2022-08-15 13:29 | Outpatient (REF) | payer OTHER, SELFPAY ==
[2022-08-15 16:50] LABS: Anion Gap 18 (12-20); Blood Urea Nitrogen 28 mg/dL (9-16); Calcium 9.9 mg/dL (8.4-10.2); Carbon Dioxide 22 mmol/L (22-29); Chloride 106 mmol/L (96-108); Estimated Glomerular Filt Rate 30; Glucose Random 93 mg/dL (60-115); Potassium 5.1 mmol/L (3.3-5.1); Sodium 141 mmol/L (135-145)
== END 2022-08-15 13:30 | disposition home or self-care (01) ==
LOC: HO.HMGCLDS 13:29
PROVIDERS: PCP Internal Medicine; Visit Provider Internal Medicine
DX: N18.30 Chronic kidney disease, stage 3 unspecified (principal)
CPT/HCPCS: 36415; 80048

== ENCOUNTER 2022-08-22 11:03 | Outpatient (REF) | payer OTHER, SELFPAY ==
[2022-08-22 14:21] LABS: Appearance Urine Clear; Color Urine Yellow; Glucose Urine UA Negative (Negative); Leukocyte Esterase Urine Negative (Negative); Nitrite Urine Negative (Negative); PH 5.5 (5.0-9.0); Urine Blood Negative (Negative); Urine Ketones Negative (Negative); Urine Protein Negative (Neg-Trace)
[2022-08-22 14:28] LABS: Bacteria Urine None Seen (None Seen); Hyaline Casts Urine 0-2 /LPF (0-2); RBC Urine 0-2 /HPF (0-2); Squamous Epithelial Cell Urine 0-2 /HPF (0-2); WBC Urine 0-5 /HPF (0-5)
== END 2022-08-22 11:04 | disposition home or self-care (01) ==
LOC: HO.HMGCLDS 11:03
PROVIDERS: PCP Internal Medicine; Visit Provider Internal Medicine
DX: N18.30 Chronic kidney disease, stage 3 unspecified (principal)
CPT/HCPCS: 81001

== ENCOUNTER → 2022-10-02 13:38 | Outpatient (REF) | payer OTHER, SELFPAY ==
--- NOTE | 2022-10-02 13:52 | CA_ITS ---
Transthoracic Echocardiogram Patient (Last, First, Middle): Radha Blandon E Gender: Female Date of : 1950 Age: 72 Procedure Date: 10/02/2022 Procedure Type: Transthoracic Echocardiogram Location: OP Height: 172.72 cm Weight: 120.2 kg BSA: 2.30 m2 Heart Rate: bpm BP: 157 / 57 mmHg Furniture Stainer: CARMENZA Referring MD: Viola Mack MD Bowstring Maker: Fermín Godoy MD Symptoms: R55 - Syncope and collapse Study Quality: Technically Difficult ECG Rhythm: Sinus Conclusions: - 1. Normal LV systolic function with impaired relaxation filling pattern 2. Limited visualization of cardiac valves with normal cardiac valvular Doppler 3. Normal RV systolic pressure Findings Procedure Information Contrast agent, definity, is being given per protocol without apparent complications. Left Ventricle Normal left ventricular size, thickness, and systolic function. The visually estimated ejection fraction is between 65-70%. Spectral Doppler is indicative of an impaired relaxation filling pattern. Right Ventricle The right ventricle was not well visualized. Atria The left atrium was not well visualized. Interatrial shunt cannot be excluded. The right atrium was not well visualized. Aortic Valve The aortic valve was not well visualized. There is no aortic valve stenosis. There is no aortic valve regurgitation. Mitral Valve The mitral valve was not well visualized. There is no mitral valve stenosis. Pulmonic Valve The pulmonic valve was not well visualized. Tricuspid Valve Likely normal tricuspid valve structure and function. There is trace tricuspid valve regurgitation. The right ventricular systolic pressure is normal. The right ventricular systolic pressure is 28 mmHg. Normal right atrial pressure. There is no evidence of pulmonary hypertension. Great Vessels The aorta was not well visualized. The pulmonary artery was not well visualized. Venous The inferior vena cava is normal in size. Pericardium/Pleural The pericardium was not well visualized. Prior Study Comparison No prior study available for comparison. Measurements 2D Linear Measurements IVSd: 0.71 0.6-0.9/0.6-1.0 cm LVIDd: 4.25 3.9-5.3/4.2-5.9 cm LVIDd Index: 1.85 2.4-3.2/2.2-3.1 cm/m2 LVIDs: 1.76 2.0-3.6 cm LVPWd: 0.82 0.7-1.1 cm LA Diam: 3.20 2.7-3.8/3.0-4.0 cm LAIDs Index: 1.39 1.5-2.3 cm/m2 LV Mass: 120.68 67-162/88-224 g LV Mass Index: 52.47 43-95/49-115 g/m2 LVOT Diam: 2.20 3.0+(-)1.3 cm 2D Systolic Function EF 4C: 69.70 >55% EF 2C: 73.40 >55% Mitral Valve MV Pk E: 0.79 MV PK A: 0.83 MV Decel Time: 189.00 E/A: 0.90 E'Lateral: 11.70 E'Medial: 8.59 E/E' Med: 9.20 E/E' Lat: 6.80 PHT: 55.00 MVA PHT: 4.00 Decel [place]: 4.18 Aortic Valve AoV Pk Sina: 1.82 AoV Mn Sina: 1.18 AoV VTI: 0.40 AoV Pk Grad: 13.00 Aov Mn Grad: 7.00 KARAN Cont.VTI: 3.27 LVOT LVOT Pk Sina: 1.63 LVOT Mn Sina: 0.99 LVOT VTI: 0.35 LVOT Pk Grad: 11.00 LVOT Mn Grad: 5.00 LVOT Diam: 2.20 LVOT Area: 3.80 Diastolic Function MV Pk E: 0.79 MV Pk A: 0.83 E/A: 0.90 E'Medial: 8.59 E/E' Med: 9.20 E' Laterial: 11.70 E/E' Lat: 6.80 Right Ventricle TAPSE (mm): 30.10 TVS' Sina: 18.20 Tricuspid Valve TR Pk Sina: 2.52 TR Pk Grad: 25.00 RA Press: 3.00 RVSP: 28.00 Great Vessels Aorta Sinus of Valsalva: 3.05 2.0-3.[address] [place]: 2.35 1.7-3.4 cm Ao Asc: 2.80 2.1-3.4 cm Updated in Other Vendor System with Status of Final Fermín Godoy MD electronically signed on 10/03/2022 2:56:30 PM with status of Final
--- NOTE | 2022-10-02 14:31 | HM_ITS ---
Conclusion: 1. Patient was monitored for total period of 2 days 2. Baseline was normal sinus rhythm with average heart of 77 beats per minute 3. No significant pauses or bradycardia noted 4. Total of 1754 PACs accounting for 0.8% total beats account for occasional PACs 5. Frequent short burst of SVT with longest episode lasting 9 beats and the fastest at 157 beats per minute 6. No patient reported events MTDD
== END ==
LOC: HO.CARD 13:38
PROVIDERS: PCP Internal Medicine; Visit Provider Internal Medicine
DX: R55 Syncope and collapse (principal); I12.9 Hypertensive chronic kidney disease with stage 1 through stage 4 chronic kidney disease, or unspecified chronic kidney disease; N18.30 Chronic kidney disease, stage 3 unspecified
CPT/HCPCS: 93225; 93306; Q9957

== ENCOUNTER 2022-10-10 09:49 | Outpatient (REF) | payer OTHER, SELFPAY ==
--- NOTE | ~2022-10-10 | US_ITS ---
EXAMINATION: US RETROPERITONEAL LIMITED (RENAL ONLY) CLINICAL INFORMATION: Chronic kidney disease, stage III, unspecified. COMPARISON: CT abdomen and pelvis 03/10/2022. TECHNIQUE: Real-time imaging of the kidneys. FINDINGS: RIGHT KIDNEY: 8.3 x 4.4 x 4.5 cm (SAG x AP x TRV). The kidney is normal in size and contour. Increased cortical echogenicity. No calculi or focal parenchymal lesions. No hydronephrosis. LEFT KIDNEY: 9.6 x 4.7 x 5.2 cm (SAG x AP x TRV). The kidney is normal in size and contour. Increased cortical echogenicity. No calculi or focal parenchymal lesions. No hydronephrosis. US/US renal BI IMPRESSION: Increased cortical echogenicity bilaterally which could be seen with chronic renal disease. No nephrolithiasis or hydronephrosis.
== END 2022-10-10 09:50 | disposition home or self-care (01) ==
LOC: HO.HMGCX 09:49
PROVIDERS: PCP Internal Medicine; Visit Provider Internal Medicine
DX: N18.30 Chronic kidney disease, stage 3 unspecified (principal)
CPT/HCPCS: 76775

== ENCOUNTER 2022-10-20 10:45 | Outpatient (REF) | payer OTHER, SELFPAY ==
[2022-10-20 13:25] LABS: MANUAL DIFF FLAG NO
[2022-10-20 13:28] LABS: Basophils Percent Auto 0.3 % (0-2); Eosinophils Absolute Auto 0.1 X10*3/uL (0.0-0.4); Hematocrit 35.5 % (37.0-47.0); Hemoglobin 11.6 g/dl (12.0-16.0); Imm Gran Abs Auto 0.04 X10*3/uL (0.00-0.03); Imm Gran Pct Auto 0.5 % (0.0-0.4); Lymphocytes Absolute Auto 1.2 X10*3/uL (1.2-4.9); Lymphocytes Percent Auto 14.7 % (20-40); Mean Corpuscular HGB Conc 32.7 g/dl (31.0-35.0); Mean Corpuscular Hemoglobin 31.6 pg (27.0-33.0); Mean Corpuscular Volume 96.7 fL (80.0-98.0); Mean Platelet Volume 9.5 fL (9.4-12.3); Monocytes Absolute Auto 0.7 X10*3/uL (0.1-1.2); Monocytes Percent Auto 8.8 % (2-11); Neutrophils Percent Auto 74.7 % (45-73); Platelet Count 265 X10*3/uL (160-400); Red Blood Count 3.67 X10*6/uL (4.20-5.50); Red Cell Distribution Width 14.8 % (11.0-16.0)
[2022-10-20 13:49] LABS: Alanine Aminotransferase 25 U/L (0-31); Albumin Level 3.8 g/dL (3.5-5.0); Alkaline Phosphatase 64 U/L (39-117); Anion Gap 14 (12-20); Aspartate Amino Transferase 17 U/L (5-31); Bilirubin Total 0.4 mg/dL (0.0-1.0); Blood Urea Nitrogen 37 mg/dL (9-16); Calcium 9.1 mg/dL (8.4-10.2); Carbon Dioxide 18 mmol/L (22-29); Chloride 110 mmol/L (96-108); Cholesterol 260 mg/dL; Estimated Glomerular Filt Rate 34; Glucose Fasting 82 mg/dL (60-99); HDL Cholesterol 66 mg/dL; LDL Cholesterol Calculated 170 mg/dl; Sodium 137 mmol/L (135-145); Total Protein 6.4 g/dL (6.5-8.0); Triglycerides 124 mg/dL
[2022-10-20 14:05] LABS: TSH reflex Free T4 2.17 uIU/mL (0.32-4.0)
== END 2022-10-20 10:46 | disposition home or self-care (01) ==
LOC: HO.HMGCLDS 10:45
PROVIDERS: PCP Internal Medicine; Visit Provider Internal Medicine
DX: Z00.00 Encounter for general adult medical examination without abnormal findings (principal); E66.01 Morbid (severe) obesity due to excess calories; N18.30 Chronic kidney disease, stage 3 unspecified
CPT/HCPCS: 36415; 80053; 80061; 84443; 85025

== ENCOUNTER 2022-10-22 13:14 | Outpatient (REF) | payer OTHER, SELFPAY ==
[2022-10-22 14:37] LABS: Iron 78 mcg/dL (30-160); Percent Iron Saturation 27 % (15-50); Total Iron Binding Capacity 285 mcg/dL (228-428); Unsaturated Iron Binding 207 ug/dL
[2022-10-22 14:55] LABS: Vitamin D 25-OH Total 27.7 ng/mL (>30)
[2022-10-22 15:10] LABS: Folate > 20.0 ng/mL (> or = 4.0); Vitamin B12 435 pg/mL (200-900)
== END 2022-10-22 13:15 | disposition home or self-care (01) ==
LOC: HO.HMGCLDS 13:14
PROVIDERS: PCP Internal Medicine; Visit Provider Internal Medicine
DX: M54.50 Low back pain, unspecified (principal); D64.9 Anemia, unspecified; I12.9 Hypertensive chronic kidney disease with stage 1 through stage 4 chronic kidney disease, or unspecified chronic kidney disease; N18.30 Chronic kidney disease, stage 3 unspecified; D63.1 Anemia in chronic kidney disease
CPT/HCPCS: 36415; 82306; 82607; 82746; 83540

== ENCOUNTER 2022-11-28 11:00 | Outpatient (RCR) | payer OTHER, SELFPAY ==
[2022-11-07 10:53] VITALS: BP 120/60
--- NOTE | 2022-11-07 16:06 | MHC.PT.EP ---
[facility] [place] [facility] [place] [facility] [place] [facility] [address] Kristi Tyler [address] [phone] F: [phone] F: [phone] F: [phone] F: [phone] Physical Therapy Plan of Care Date of Evaluation: Date of Surgery: Diagnosis: Abnormalities of gait and mobility. 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 Pt is deemed an appropriate candidate to receive skilled PT services to address their physical impairments in order to improve their functional ability. Frequency and Duration: The patient will be seen 2 x/ wk x 5 wks. Short Term Goals: Initiate HEP. Pt will reports B LE symptom with standing and walking improved by at least 50%. Machine Sprayer Goals: I with H home program. B LE Sx abolished. Pt will report able to tolerate standing for 1 hour with at most moderate difficulty; initial: extreme difficulty or unable to perform. Pt will be able to walk 2 blocks with at most a little bit of difficulty; initial: quite a bit of difficulty. Improve core strength to > fair (+), initial: fair. Treatment Plan: Modalities to reduce pain, spasms and effusion. Manual therapy to restore motion and function. Therapeutic exercise to improve strength and flexibility. Neuromuscular re-education for posture and balance. Therapeutic activities to return to functional activities of daily living. Electronically signed by: Alan Mclean PT. Please sign and return to therapist. Thank you for your referral.
--- NOTE | 2023-01-10 08:34 | MHC.PT.DC ---
[facility] [place] Office [place] Office [place] Office [address] Kristi Tyler [address] [phone] F: [phone] F: [phone] F: [phone] F: [phone] Physical Therapy Discharge Report Diagnosis: Abnormalities of gait and mobility. Date of Surgery: Date of Evaluation: 11/07/22 Date of Discharge: 01/10/23 Treatments to Date: 6 Cancellations to Date: No Shows to Date: Discharge Status: Patient Elected to Stop Discharge Summary: Pt had improved her symptoms though did not complete her program. Electronically signed by: Alan Mclean PT. Please sign and return to therapist. Thank you for your referral.
== END 2023-01-10 08:44 | disposition home or self-care (01) ==
LOC: HO.PTCHIC 11:00
PROVIDERS: PCP Internal Medicine; Visit Provider Internal Medicine
DX: M54.50 Low back pain, unspecified (principal); R26.89 Other abnormalities of gait and mobility
CPT/HCPCS: 97110; 97161

== ENCOUNTER 2022-12-08 14:21 | Outpatient (REF) | payer OTHER, SELFPAY ==
[2022-12-08 16:39] LABS: Appearance Urine Clear; Color Urine Yellow; Glucose Urine UA Negative (Negative); Leukocyte Esterase Urine Negative (Negative); Nitrite Urine Negative (Negative); PH 5.5 (5.0-9.0); Specific Gravity - Urine 1.015 (1.005-1.025); Urine Blood Negative (Negative); Urine Ketones Negative (Negative); Urine Protein Negative (Neg-Trace)
== END 2022-12-08 14:22 | disposition home or self-care (01) ==
LOC: HO.LAB 14:21
PROVIDERS: Visit Provider Physician Assistant Medical
DX: R30.0 Dysuria (principal)
CPT/HCPCS: 81003

== ENCOUNTER 2023-01-03 14:42 | Outpatient (REF) | payer OTHER, SELFPAY ==
[2023-01-03 16:39] LABS: MANUAL DIFF FLAG NO
[2023-01-03 16:49] LABS: Basophils Percent Auto 0.2 % (0-2); Eosinophils Absolute Auto 0.2 X10*3/uL (0.0-0.4); Eosinophils Percent Auto 1.5 % (0-4); Hematocrit 38.6 % (37.0-47.0); Hemoglobin 12.5 g/dl (12.0-16.0); Imm Gran Abs Auto 0.04 X10*3/uL (0.00-0.03); Imm Gran Pct Auto 0.3 % (0.0-0.4); Lymphocytes Absolute Auto 1.1 X10*3/uL (1.2-4.9); Lymphocytes Percent Auto 8.6 % (20-40); Mean Corpuscular HGB Conc 32.4 g/dl (31.0-35.0); Mean Corpuscular Hemoglobin 30.5 pg (27.0-33.0); Mean Corpuscular Volume 94.1 fL (80.0-98.0); Mean Platelet Volume 10.2 fL (9.4-12.3); Monocytes Absolute Auto 0.8 X10*3/uL (0.1-1.2); Monocytes Percent Auto 6.9 % (2-11); Neutrophils Absolute Auto 10.1 x10*3/uL (2.0-8.3); Neutrophils Percent Auto 82.5 % (45-73); Platelet Count 300 X10*3/uL (160-400); Red Cell Distribution Width 14.7 % (11.0-16.0); White Blood Count 12.2 X10*3/uL (4.8-10.8)
[2023-01-03 17:21] LABS: Alanine Aminotransferase 18 U/L (0-31); Alkaline Phosphatase 80 U/L (39-117); Anion Gap 14 (12-20); Aspartate Amino Transferase 15 U/L (5-31); Bilirubin Total 0.4 mg/dL (0.0-1.0); Blood Urea Nitrogen 41 mg/dL (9-16); Calcium 9.2 mg/dL (8.4-10.2); Carbon Dioxide 21 mmol/L (22-29); Chloride 106 mmol/L (96-108); Estimated Glomerular Filt Rate 27; Glucose Random 103 mg/dL (60-115); Potassium 4.7 mmol/L (3.3-5.1); Sodium 136 mmol/L (135-145); Total Protein 6.8 g/dL (6.5-8.0)
== END 2023-01-03 14:43 | disposition home or self-care (01) ==
LOC: HO.HMGCLDS 14:42
PROVIDERS: PCP Internal Medicine; Visit Provider Internal Medicine
DX: I12.9 Hypertensive chronic kidney disease with stage 1 through stage 4 chronic kidney disease, or unspecified chronic kidney disease (principal); N18.30 Chronic kidney disease, stage 3 unspecified; D64.9 Anemia, unspecified; E55.9 Vitamin D deficiency, unspecified
CPT/HCPCS: 36415; 80053; 85025

== ENCOUNTER 2023-01-05 23:47 | Emergency (ER) | payer OTHER, SELFPAY ==
--- NOTE | 2023-01-06 | ECG_ITS ---
Test Reason : PALPITATIONS Blood Pressure : / mmHG Vent. Rate : 070 BPM Atrial Rate : 070 BPM P-R Int : 156 ms QRS Dur : 078 ms QT Int : 364 ms P-R-T Axes : 032 009 055 degrees QTc Int : 393 ms Artifact in tracing Normal sinus rhythm Normal ECG No previous ECGs available Referred By: Generic ED Physician Electronically Signed By:CARLEY LACKEY
[2023-01-06 01:09] VITALS: BP 154/62; PULSE 77; RESP 16; TEMP 36.1; O2SAT 96
[2023-01-06 01:12] LABS: Hematocrit 38.2 % (37.0-47.0); Hemoglobin 12.4 g/dl (12.0-16.0); Mean Corpuscular HGB Conc 32.5 g/dl (31.0-35.0); Mean Corpuscular Hemoglobin 29.7 pg (27.0-33.0); Mean Corpuscular Volume 91.6 fL (80.0-98.0); Mean Platelet Volume 9.3 fL (9.4-12.3); Platelet Count 257 X10*3/uL (160-400); Red Blood Count 4.17 X10*6/uL (4.20-5.50); Red Cell Distribution Width 14.6 % (11.0-16.0)
--- NOTE | 2023-01-06 01:20 | ED_ITS ---
HPI - General Adult General Chief complaint: General Medical Stated complaint: High BP/Dizziness/Palpitations Time Seen by Provider: 01/06/23 01:11 Source: patient Mode of arrival: ambulatory History of Present Illness HPI narrative: 72-year-old female with history of hypertension presents with muscle spasm of neck and shoulders but states that she is been having some lightheadedness without double vision and denies any shortness of breath, diaphoresis, chest pain/palpitations and states that she only feels this way when she is inside and begins to stand up. Otherwise, when she is outside she has no problems. She denies any new medications. Related Data Home Medications Medication Instructions Recorded Confirmed fluticasone propionate 50 1 spray intranasal BID PRN 08/09/20 10/22/22 mcg/actuation nasal congestion spray,suspension glucosamine sulfate 750 mg tablet 750 mg PO ONCE 08/09/20 10/22/22 multivitamin 1 tab PO DAILY 08/09/20 10/22/22 Previous Rx's Medication Instructions Recorded oyuxcure-[id number]-[id number] 3.5 4 drp otic (ear) left TID 10 days 03/20/21 mg-10,000 unit/mL-1 % ear #10 mL drops,susp lorazepam 0.5 mg tablet 0.5 mg PO DAILY PRN anxiety #10 08/22/22 tabs lisinopril 10 mg tablet 10 mg PO DAILY #90 tabs 11/07/22 fluconazole 150 mg tablet 150 mg PO Q3D 2 doses #2 tabs 12/08/22 (Diflucan) hydrochlorothiazide 25 mg tablet 25 mg PO QAM #30 tabs 12/08/22 nitrofurantoin 100 mg PO Q12H 5 days #10 caps 12/08/22 monohydrate/macrocrystals 100 mg capsule (Macrobid) cyclobenzaprine 5 mg tablet 5 mg PO BEDTIME PRN muscle spasm 01/06/23 #4 tabs Allergies Allergy/AdvReac Type Severity Reaction Status Date / Time erythromycin base Allergy Unknown upset Verified 01/02/23 14:23 stomach nausea amlodipine AdvReac Intermediate edema Verified 01/02/23 15:02 Review of Systems Review of Systems: Pertinent positives and negatives as stated in HPI [facility] Past Medical History Source: nursing notes reviewed Medical History Annual physical exam Anxiety Chest pain DJD (degenerative joint disease), lumbar HTN (hypertension) Hyperlipemia Mammogram normal Overweight Vaginal bleeding Surgical History H/O colonoscopy No pertinent past surgical history Family History Family History Father No problems noted. Mother HTN (hypertension) Social History Social History Housing: House Alcohol intake: current Alcohol intake frequency: a few times a month Patient Tobacco Use Status: Never used Tobacco e-Cigarette/Vaping Use: Never Used Second Hand Smoke Exposure: No Advance Directives: Yes Advance Directives Information Provided: No Advance Directives on File: No service: No Current occupational status: retired Cognitive needs: No Hearing needs: No Vision needs: Yes Physical Exam ED Vital Signs: Vital Signs - 24 hr 01/06/23 01:09 01/06/23 01:57 01/06/23 01:58 Temperature 97.0 F Pulse Rate 77 71 74 Respiratory Rate 16 Blood Pressure 154/62 H 152/54 H 142/55 H Pulse Oximetry 96 Oxygen Delivery Method Room Air 01/06/23 01:59 Temperature Pulse Rate 85 Respiratory Rate Blood Pressure 157/49 H Pulse Oximetry Oxygen Delivery Method BMI result Body Mass Index 0.4 VITAL SIGNS: Reviewed. GENERAL: Elevated BMI, Well developed, well nourished, in no acute distress. HEAD: Normocephalic/atraumatic EYES: PERRLA, EOMI LUNGS: Normal breath sounds. No adventitious sounds or accessory muscle use. SpO2<96> CARDIOVASCULAR: Regular rate and rhythm without noted murmurs, no JVD but mild 1+ lower pitting edema ABDOMEN: Soft, non-tender, non-distended with bowel sounds. MUSCULOSKELETAL: No tenderness, deformities, or effusions noted on gross inspection. EXTREMITIES: No cyanosis, clubbing or edema. SKIN: Inspection of the skin reveals no rashes NEUROLOGIC: Alert and oriented x 4. Strength and sensation to light touch were grossly intact x 4, no facial asymmetry, no pronator drift, cranial nerves 2-12 grossly intact.. Medical Decision Making Medical Decision Making MDM Narrative: 72-year-old female with history and clinical presentation most consistent with muscle spasm due to musculoskeletal. I reviewed all investigations there is no evidence of focal findings, infection, anemia, viral illness, UTI. All results discussed with her at bedside, she was provided with a lidocaine patch and Tylenol and discharged home in stable condition. Differential Diagnosis Please see the discussion above Lab Data Please see the discussion above 01/06/23 01:06 01/06/23 01:06 Labs: Lab Results 01/06/23 01/06/23 01/06/23 Range/Units 01:06 01:06 01:06 WBC 11.0 H (4.8-10.8) X10*3/uL RBC 4.17 L (4.20-5.50) X10*6/uL Hgb 12.4 (12.0-16.0) g/dl Hct 38.2 (37.0-47.0) % MCV 91.6 (80.0-98.0) fL MCH 29.7 (27.0-33.0) pg MCHC 32.5 (31.0-35.0) g/dl RDW 14.6 (11.0-16.0) % Plt Count 257 (160-400) X10*3/uL MPV 9.3 L (9.4-12.3) fL Absolute Nucleated RBC 0.000 (0.0-0.012) X10*3/uL Nucleated RBC % (auto) 0.0 (0.0-0.2) /100WBC Sodium 137 (135-145) mmol/L Potassium 5.1 (3.3-5.1) mmol/L Chloride 109 H (96-108) mmol/L Carbon Dioxide 18 L (22-29) mmol/L Anion Gap 15 (12-20) BUN 43 H (9-16) mg/dL Creatinine 1.61 H (0.5-1.4) mg/dL Estim Creat Clear Calc 59.6 Estimated GFR 32 Random Glucose 113 (60-115) mg/dL Calcium 9.3 (8.4-10.2) mg/dL Total Bilirubin 0.4 (0.0-1.0) mg/dL AST 13 (5-31) U/L ALT 19 (0-31) U/L Alkaline Phosphatase 74 (39-117) U/L Troponin I High Sens 9.4 (<3.5-17.0) ng/L Total Protein 6.6 (6.5-8.0) g/dL Albumin 3.9 (3.5-5.0) g/dL Urine Color Urine Appearance Urine pH (5.0-9.0) Ur Specific [place] (1.005-1.025) Urine Protein (Neg-Trace) mg/dL Urine Glucose (UA) (Negative) mg/dL Urine Ketones (Negative) mg/dL Urine Blood (Negative) Urine Nitrite (Negative) Ur Leukocyte Esterase (Negative) COVID-19 (BARB) (Negative) COVID-19 Clin Com Influenza Type A (MARY) (Negative) Influenza Type B (MARY) (Negative) Influenza A & B Note 01/06/23 01/06/23 01/06/23 Range/Units 01:06 01:06 02:07 WBC (4.8-10.8) X10*3/uL RBC (4.20-5.50) X10*6/uL Hgb (12.0-16.0) g/dl Hct (37.0-47.0) % MCV (80.0-98.0) fL MCH (27.0-33.0) pg MCHC (31.0-35.0) g/dl RDW (11.0-16.0) % Plt Count (160-400) X10*3/uL MPV (9.4-12.3) fL Absolute Nucleated RBC (0.0-0.012) X10*3/uL Nucleated RBC % (auto) (0.0-0.2) /100WBC Sodium (135-145) mmol/L Potassium (3.3-5.1) mmol/L Chloride (96-108) mmol/L Carbon Dioxide (22-29) mmol/L Anion Gap (12-20) BUN (9-16) mg/dL Creatinine (0.5-1.4) mg/dL Estim Creat Clear Calc Estimated GFR Random Glucose (60-115) mg/dL Calcium (8.4-10.2) mg/dL Total Bilirubin (0.0-1.0) mg/dL AST (5-31) U/L ALT (0-31) U/L Alkaline Phosphatase (39-117) U/L Troponin I High Sens (<3.5-17.0) ng/L Total Protein (6.5-8.0) g/dL Albumin (3.5-5.0) g/dL Urine Color Yellow Urine Appearance Clear Urine pH 5.5 (5.0-9.0) Ur Specific [place] 1.015 (1.005-1.025) Urine Protein Negative (Neg-Trace) mg/dL Urine Glucose (UA) Negative (Negative) mg/dL Urine Ketones Negative (Negative) mg/dL Urine Blood Negative (Negative) Urine Nitrite Negative (Negative) Ur Leukocyte Esterase Negative (Negative) COVID-19 (BARB) Negative (Negative) COVID-19 Clin Com See Note Influenza Type A (MARY) Negative (Negative) Influenza Type B (MARY) Negative (Negative) Influenza A & B Note See Note Independent Interpretation I performed an independent interpretation of an: EKG Interpretation: Normal sinus rhythm, HR-70, no STEMI, OH/QRS/QTC is within normal limits. External Record Review External record reviewed: Prior outpatient labs Chronic Conditions Patient?s care impacted by: Hypertension Discharge Plan Discharge Clinical Impression: Musculoskeletal neck pain, Muscle spasm Patient Disposition: Home, Self-Care Instructions: Muscle Spasm (ED), Neck Pain (ED) Additional Instructions: 1. Resume all home medications as prescribed. 2. Follow through with the physical therapy referral that your primary care provider has provided you with. 3. Tylenol 1000 mg, orally, every 6 hours as needed for pain control. Also recommend application of either ice or heat depending on which gives you symptom relief. 4. Lidocaine patch, apply to the area of maximal pain as directed on the outside packaging. 5. Please follow-up with primary care provider on Saturday. Return to the ER for any worsening symptoms. Prescriptions: New cyclobenzaprine 5 mg tablet 5 mg PO BEDTIME PRN (Reason: muscle spasm) Qty: 4 0RF No Action lisinopril 10 mg tablet 10 mg PO DAILY Qty: 90 3RF fluticasone propionate 50 mcg/actuation spray,suspension 1 spray intranasal BID PRN (Reason: congestion) glucosamine sulfate 750 mg tablet 750 mg PO ONCE Rx Instructions: administer with meals multivitamin Tablet 1 tab PO DAILY [id number] 3.5-10,000-1 mg/mL-unit/mL-% drops,suspension 4 drp otic (ear) left TID 10 Days Qty: 10 0RF lorazepam 0.5 mg tablet 0.5 mg PO DAILY PRN (Reason: anxiety) Qty: 10 0RF fluconazole [Diflucan] 150 mg tablet 150 mg PO Q3D 0 Days Qty: 2 0RF Rx Instructions: may repeat second dose 72 hrs after first dose if symptoms persist hydrochlorothiazide 25 mg tablet 25 mg PO QAM Qty: 30 1RF nitrofurantoin monohyd/m-cryst [Macrobid] 100 mg capsule 100 mg PO Q12H 5 Days Qty: 10 0RF Rx Instructions: must administer with a meal/food Referrals: Viola Mack MD [Primary Care Provider] -
[2023-01-06 01:30] LABS: COVID-19 Test Negative (Negative); IDNOW Serial# 08D9AD1C; IDNOW Serial# BCCEAD1C; Influenza A Negative (Negative); Influenza B2 Negative (Negative)
[2023-01-06 01:33] LABS: Alanine Aminotransferase 19 U/L (0-31); Albumin Level 3.9 g/dL (3.5-5.0); Alkaline Phosphatase 74 U/L (39-117); Anion Gap 15 (12-20); Aspartate Amino Transferase 13 U/L (5-31); Bilirubin Total 0.4 mg/dL (0.0-1.0); Blood Urea Nitrogen 43 mg/dL (9-16); Calcium 9.3 mg/dL (8.4-10.2); Carbon Dioxide 18 mmol/L (22-29); Chloride 109 mmol/L (96-108); Creatinine Clr Calc Pharmacy 59.6; Estimated Glomerular Filt Rate 32; Glucose Random 113 mg/dL (60-115); Potassium 5.1 mmol/L (3.3-5.1); Sodium 137 mmol/L (135-145); Total Protein 6.6 g/dL (6.5-8.0)
[2023-01-06 01:38] LABS: Troponin-I High Sensitivity 9.4 ng/L (<3.5-17.0)
[2023-01-06 01:57] VITALS: BP 152/54; PULSE 71
[2023-01-06 01:58] VITALS: BP 142/55; PULSE 74
[2023-01-06 01:59] VITALS: BP 157/49; PULSE 85
--- NOTE | 2023-01-06 02:13 | PC.NURSE ---
Pt aox3 resting at the bedside in no apparent distress. Breaths are even regular and unlabored. NSR on monitor with HR of 75. Reports feeling heart palpitations and dizziness when ambulating. No palpitations during rest. Urine sample collected and sent to the lab. Pt aware of plan of care.
[2023-01-06 02:28] LABS: Appearance Urine Clear; Color Urine Yellow; Glucose Urine UA Negative (Negative); Leukocyte Esterase Urine Negative (Negative); Nitrite Urine Negative (Negative); PH 5.5 (5.0-9.0); Specific Gravity - Urine 1.015 (1.005-1.025); Urine Blood Negative (Negative); Urine Ketones Negative (Negative); Urine Protein Negative (Neg-Trace)
[2023-01-06 03:55] VITALS: BP 151/41; PULSE 70; RESP 20; TEMP 36.4; O2SAT 97
[2023-01-06] MEDS: Acetaminophen 325 MG TABLET 975 MG PO (04:00)
[2023-01-06] MEDS: Lidocaine 4 % Patch ADH..PATCH 1 PATCH TRANSDERMA (04:01)
--- NOTE | 2023-01-06 04:08 | PC.NURSE ---
Pt aox3. No apparent distress noted. Discharge instructions reviewed with pt. Pt verbalizes understanding.
== END 2023-01-06 06:08 | disposition home or self-care (01) ==
PROVIDERS: Emergency Provider Student in an Organized Health Care Education/Training Program; PCP Internal Medicine
DX: R00.2 Palpitations (principal); R42 Dizziness and giddiness; M54.2 Cervicalgia; Z20.822 Contact with and (suspected) exposure to COVID-19; Z20.828 Contact with and (suspected) exposure to other viral communicable diseases; Z79.899 Other long term (current) drug therapy
CPT/HCPCS: 36415; 80053; 81003; 84484; 85027; 87502; 87635; 93005; 99284

== ENCOUNTER 2023-01-09 16:52 | Emergency (ER) | payer OTHER, SELFPAY ==
--- NOTE | ~2023-01-09 | XR_ITS ---
EXAMINATION: XR chest 1V CLINICAL INFORMATION: Reason for Exam Dizziness COMPARISON: No prior chest x-ray available TECHNIQUE: XR chest 1V Tubes and lines: None Lungs and pleura: There is about 1 cm density projecting over the left upper lobe superimposed on the first costochondral junction, although could be a prominent costochondral junction, cannot rule out underlying lung nodule. Heart and mediastinum: The mediastinum is within normal limits.. Bones/soft tissue: Skeletal structures included are normal for patient's age. XR/XR chest 1V IMPRESSION: There is approximately 1 cm density projecting over the left upper lobe could be a prominent first chondrocostal junction VERSUS LUNG NODULE. Attention to follow-up chest PA and lateral inspiration expiration and both obliques and/or CT scan recommended. (Referring physician staff is being called, by physician staff assistance, to be alerted of the above critical findings and recommendations.) JOVITA 01/09/2023 5:54 PM
--- NOTE | ~2023-01-09 | CT_ITS ---
EXAMINATION: CT CHEST WITHOUT CONTRAST CLINICAL INFORMATION: Abnormal chest x-ray COMPARISON: Chest radiograph from today. TECHNIQUE: Multidetector volumetric CT imaging of the chest was done. Axial MIP volume rendering provided. Sagittal and coronal reformatted images were obtained. This CT examination was performed using dose optimization techniques as appropriate, variously including the following: *Automated exposure control *Adjustment of mA and/or kV according to patient size (this includes techniques or standardized protocols for targeted exams where dose is matched to indication/reason for exam; i.e. extremities or head) *Use of iterative reconstruction technique DLP: 392 mGy-cm FINDINGS: SHIP'S MASTER: Cardiac leads overlie the chest. LUNGS: The lungs are clear with no evidence of inflammation or nodules. The central airways are patent. The questionable nodular density on radiograph likely corresponds to the anterior aspect of a rib. MEDIASTINUM: Normal heart size. No pericardial effusion. No mediastinal lymphadenopathy. CORONARY ARTERY CALCIFICATION: Mild PLEURA: There is no pleural effusion. No pleural mass or thickening. No pneumothorax. AXILLA: No lymphadenopathy. UPPER ABDOMEN: Unremarkable. OSSEOUS STRUCTURES: No acute or suspicious osseous abnormality. Degenerative changes are seen throughout the spine. CT/CT chest wo IV con IMPRESSION: No suspicious findings in the chest. The questionable nodular density on radiograph likely corresponds to the anterior aspect of a rib. Fleischner guidelines were followed.
--- NOTE | ~2023-01-09 | CT_ITS ---
CT head/brain wo IV con CLINICAL INFORMATION: Reason for Exam Dizziness COMPARISON: No prior CT scan available for comparison. TECHNIQUE: Department standard protocol. This CT examination was performed using dose optimization techniques as appropriate, variously including the following: *Automated exposure control *Adjustment of mA and/or kV according to patient size (this includes techniques or standardized protocols for targeted exams where dose is matched to indication/reason for exam; i.e. extremities or head) *Use of iterative reconstruction technique DLP: 602 mGy-cm FINDINGS: CEREBRAL HEMISPHERES: There is no evidence of intra-axial or extra-axial mass, hemorrhage or acute infarct. BRAIN PARENCHYMA: Normal coles-white matter differentiation. SUBDURAL SPACE: No bleed. BASAL GANGLIA AND PINEAL GLAND: Unremarkable VENTRICLES: Symmetric and normal in size. CEREBELLUM AND BRAINSTEM: No space-occupying mass, hemorrhage or acute infarct. CEREBELLOPONTINE ANGLES: No lesion found. ORBITS: No intraorbital mass. VESSELS: Unremarkable SKULL BASE: Prominent pituitary fossa, empty sella, this has not changed,, this has been described in association with increased intracranial pressure. Otherwise Unremarkable INCLUDED SINUSES AT SKULL BASE: Clear SKULL AND SKIN: No fracture or bone lesion found. CT/CT head/brain wo IV con IMPRESSION: * No CT evidence of intracranial space-occupying mass, bleed or infarct. * Prominent pituitary fossa, empty sella, this has not changed, this has been described in association with increased intracranial pressure. Please correlate clinically.
[2023-01-09 16:58] VITALS: BP 153/55; BP 162/74; PULSE 74; PULSE 78; RESP 18; O2SAT 100; O2SAT 98; BMI 38.4
--- NOTE | 2023-01-09 17:11 | ECG_ITS ---
Test Reason : DIZZINESS Blood Pressure : / mmHG Vent. Rate : 080 BPM Atrial Rate : 080 BPM P-R Int : 174 ms QRS Dur : 084 ms QT Int : 356 ms P-R-T Axes : 055 007 041 degrees QTc Int : 410 ms Sinus rhythm with Premature atrial complexes Cannot rule out Inferior infarct , age undetermined Abnormal ECG When compared with ECG of 06-JAN-2023 01:12, Premature atrial complexes are now Present Referred By: Kortney Williamson Electronically Signed By:GUILLE DALTON MD
--- NOTE | 2023-01-09 17:12 | ED.DIZZY ---
HPI - Dizziness General Chief Complaint: Dizziness Stated Complaint: dizziness Time Seen by Provider: 01/09/23 16:59 Source: patient and EMS Mode of arrival: EMS Limitations: no limitations History of Present Illness HPI Narrative: 72-year-old female with history of hypertension presented from PCP's office for evaluation of lightheadedness. Patient was seen and evaluated for similar symptoms 3 days ago with unremarkable workup in the emergency department today while patient at the PCPs office started to have similar symptoms of lightheadedness, feeling palpitation, feeling of pulsation in the back of her neck, and about to lose consciousness heart rate was checked at the doctor's office today found to be in the 170s unfortunately no EKG was done patient was transported to the emergency department heart rate now is within normal range. Patient feels no symptoms while she is in the emergency department. Patient do not feel dehydrated been eating and drinking normally producing normal urine with no dysuria frequency urination, no CP, no nausea, no vomiting. 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 Patient stated that her blood pressure medication was switched from amlodipine to HCTZ for a month now and those new symptoms started after she started the HCTZ. Related Data Home Medications Medication Instructions Recorded Confirmed fluticasone propionate 50 1 spray intranasal BID PRN 08/09/20 10/22/22 mcg/actuation nasal congestion spray,suspension glucosamine sulfate 750 mg tablet 750 mg PO ONCE 08/09/20 10/22/22 multivitamin 1 tab PO DAILY 08/09/20 10/22/22 Previous Rx's Medication Instructions Recorded zhesryvt-svwiwmzon-yovtvxfvl 3.5 4 drp otic (ear) left TID 10 days 03/20/21 mg-10,000 unit/mL-1 % ear #10 mL drops,susp lorazepam 0.5 mg tablet 0.5 mg PO DAILY PRN anxiety #10 08/22/22 tabs lisinopril 10 mg tablet 10 mg PO DAILY #90 tabs 11/07/22 fluconazole 150 mg tablet 150 mg PO Q3D 2 doses #2 tabs 12/08/22 (Diflucan) hydrochlorothiazide 25 mg tablet 25 mg PO QAM #30 tabs 12/08/22 nitrofurantoin 100 mg PO Q12H 5 days #10 caps 12/08/22 monohydrate/macrocrystals 100 mg capsule (Macrobid) cyclobenzaprine 5 mg tablet 5 mg PO BEDTIME PRN muscle spasm 01/06/23 #4 tabs Allergies Allergy/AdvReac Type Severity Reaction Status Date / Time erythromycin base Allergy Unknown upset Verified 01/02/23 14:23 stomach nausea amlodipine AdvReac Intermediate edema Verified 01/02/23 15:02 Review of Systems Review of Systems: All other systems are reviewed and are negative Constitutional: Reports as per HPI and Reports no additional constitutional complaints Eyes: Reports as per HPI and Reports no additional eye complaints Reports system reviewed and no additional complaints, except as documented Cardiovascular: Reports as per HPI and Reports no additional cardiovascular complaints Respiratory: Reports as per HPI and Reports no additional respiratory complaints Gastrointestinal: Reports as per HPI and Reports no additional gastrointestinal complaints Genitourinary: Reports no additional female genitourinary complaints Musculoskeletal: Reports no additional musculoskeletal complaints Skin/Breast: Reports system reviewed and no additional complaints, except as docu Psychiatric: Reports no additional psychiatric complaints Endocrine: Reports no additional endocrine complaints Hematologic/Lymphatic: Reports no additional hematologic/lymphatic complaints Allergic/Immunologic: Reports no additional allergic/immunologic complaints Reports system reviewed and no additional complaints, except as documented and Reports Abnormal speech present FOR[facility]LY [facility] Past Medical History Medical History Annual physical exam Anxiety Chest pain DJD (degenerative joint disease), lumbar HTN (hypertension) Hyperlipemia Mammogram normal Overweight Vaginal bleeding Surgical History H/O colonoscopy No pertinent past surgical history Family History Family History Father No problems noted. Mother HTN (hypertension) Social History Social History Housing: House Alcohol intake: current Alcohol intake frequency: a few times a month Patient Tobacco Use Status: Never used Tobacco e-Cigarette/Vaping Use: Never Used Second Hand Smoke Exposure: No Advance Directives: Yes Advance Directives Information Provided: No Advance Directives on File: No service: No Current occupational status: retired Cognitive needs: No Hearing needs: No Vision needs: Yes Physical Exam Vital Signs: Vital Signs: Last Vital Signs Temp 98.0 F 01/09/23 20:16 Pulse 75 04/05/23 20:16 Resp 17 01/09/23 20:16 BP 132/40 L 01/09/23 20:16 Pulse Ox 96 01/09/23 20:16 O2 Del Method Room Air 01/09/23 20:16 BMI result Body Mass Index 38.4 Vital signs have been reviewed as appeared to be correct. Blood pressure normal. Heart rate normal. Respiration rate normal. Temperature normal. Oxygen saturation normal. Appearance: Alert. Oriented X3. No acute distress. Head: Normal external exam. Normocephalic. Atraumatic. No Avila signs noted. No raccoon eyes noted Eyes: PERRLA. EOMI. Conjunctiva and sclera normal. Eyelids normal. ENT: TM's Normal. Pharynx normal. Uvula midline. Moist mucous membranes. No trismus noted. No drooling noted. No muffled voice noted. Neck: Normal inspection. Neck supple. FROM. No adenopathy. Thyroid Normal. No meningeal signs. No neck mass noted. CVS: Normal heart rate and rhythm. Heart sound normal. No murmurs noted. Pulses normal throughout. Respiratory: No respiratory distress. Painless inspiration. Breath sounds normal. No wheezes/rales/rhonchi noted. Chest nontender. No accessory muscle usage noted or decreased air movement noted. Abdomen: Soft and nontender. Bowel sounds normal in all 4 quadrants. No distention noted. No organomegaly noted. No visible injury noted. Back: No CVA tenderness. Full range of motion noted. Skin: Skin warm and dry. Normal skin color. Normal skin turgor. No rashes/lesions/lacerations noted. Extremities: No lower extremity edema. Extremities exhibit normal range of motion. Extremities nontender. Neuro: Oriented X 3. Cranial nerve exam: II-XII are grossly intact No motor deficit. No sensory deficit. Reflexes normal. Course Course Course Narrative: A 72-year-old female came in for evaluation of intermittent feeling of lightheadedness and dizziness more when she changes positions sounded like orthostatic, blood pressure medication has been changed from amlodipine to HCTZ by her PCP for a month patient think that her symptoms started to happen after her medication was changed. Patient today had unremarkable workup to explain her symptoms. Patient was instructed to follow-up with her PCP. Medications Administered Discontinued Medications Generic Name Dose Route Start Last Admin Trade Name Mary PRN Reason Stop Dose Admin Sodium Chloride 1,000 mls @ 999 mls/hr 01/09/23 17:11 01/09/23 19:30 Ns IV 01/09/23 18:11 Infused .Q1H1M ONE Infusion Medical Decision Making Differential Diagnosis Differential Diagnoses: The differential diagnosis associated with the presentation includes (ACS, orthostatic hypotension, arrhythmia, electrolyte disturbance, dehydration, anemia.) Lab Data MDM Lab Attestation statement: I reviewed the patient's lab results. 01/09/23 17:57 01/09/23 17:57 Labs: Lab Results 01/09/23 01/09/23 01/09/23 Range/Units 17:57 17:57 17:57 WBC 11.2 H (4.8-10.8) X10*3/uL RBC 4.15 L (4.20-5.50) X10*6/uL Hgb 12.5 (12.0-16.0) g/dl Hct 38.7 (37.0-47.0) % MCV 93.3 (80.0-98.0) fL MCH 30.1 (27.0-33.0) pg MCHC 32.3 (31.0-35.0) g/dl RDW 14.6 (11.0-16.0) % Plt Count 229 (160-400) X10*3/uL MPV 9.2 L (9.4-12.3) fL Immature Gran % (Auto) 0.4 (0.0-0.4) % Neut % (Auto) 80.8 H (45-73) % Lymph % (Auto) 10.4 L (20-40) % Steele % (Auto) 7.0 (2-11) % Eos % (Auto) 1.0 (0-4) % Baso % (Auto) 0.4 (0-2) % Lymph # (Auto) 1.2 (1.2-4.9) X10*3/uL Steele # (Auto) 0.8 (0.1-1.2) X10*3/uL Eos # (Auto) 0.1 (0.0-0.4) X10*3/uL Baso # (Auto) 0.0 (0.0-0.2) X10*3/uL Abs Immat Gran (auto) 0.05 H (0.00-0.03) X10*3/uL Absolute Neuts (auto) 9.1 H (2.0-8.3) x10*3/uL Absolute Nucleated RBC 0.000 (0.0-0.012) X10*3/uL Nucleated RBC % (auto) 0.0 (0.0-0.2) /100WBC Sodium 138 (135-145) mmol/L Potassium 4.8 (3.3-5.1) mmol/L Chloride 107 (96-108) mmol/L Carbon Dioxide 19 L (22-29) mmol/L Anion Gap 17 (12-20) BUN 42 H (9-16) mg/dL Creatinine 1.82 H (0.5-1.4) mg/dL Estim Creat Clear Calc 38.8 Estimated GFR 27 Random Glucose 89 (60-115) mg/dL Calcium 9.4 (8.4-10.2) mg/dL Total Bilirubin 0.6 (0.0-1.0) mg/dL Direct Bilirubin 0.2 (0.0-0.5) mg/dL AST 19 (5-31) U/L ALT 22 (0-31) U/L Alkaline Phosphatase 75 (39-117) U/L Troponin I High Sens 13.6 (<3.5-17.0) ng/L B-Natriuretic Peptide (<100) pg/mL Total Protein 6.8 (6.5-8.0) g/dL Albumin 4.1 (3.5-5.0) g/dL Lipase 57 (8-78) U/L Urine Color Urine Appearance Urine pH (5.0-9.0) Ur Specific [place] (1.005-1.025) Urine Protein (Neg-Trace) mg/dL Urine Glucose (UA) (Negative) mg/dL Urine Ketones (Negative) mg/dL Urine Blood (Negative) Urine Nitrite (Negative) Ur Leukocyte Esterase (Negative) 01/09/23 01/09/23 Range/Units 17:57 19:57 WBC (4.8-10.8) X10*3/uL RBC (4.20-5.50) X10*6/uL Hgb (12.0-16.0) g/dl Hct (37.0-47.0) % MCV (80.0-98.0) fL MCH (27.0-33.0) pg MCHC (31.0-35.0) g/dl RDW (11.0-16.0) % Plt Count (160-400) X10*3/uL MPV (9.4-12.3) fL Immature Gran % (Auto) (0.0-0.4) % Neut % (Auto) (45-73) % Lymph % (Auto) (20-40) % Steele % (Auto) (2-11) % Eos % (Auto) (0-4) % Baso % (Auto) (0-2) % Lymph # (Auto) (1.2-4.9) X10*3/uL Steele # (Auto) (0.1-1.2) X10*3/uL Eos # (Auto) (0.0-0.4) X10*3/uL Baso # (Auto) (0.0-0.2) X10*3/uL Abs Immat Gran (auto) (0.00-0.03) X10*3/uL Absolute Neuts (auto) (2.0-8.3) x10*3/uL Absolute Nucleated RBC (0.0-0.012) X10*3/uL Nucleated RBC % (auto) (0.0-0.2) /100WBC Sodium (135-145) mmol/L Potassium (3.3-5.1) mmol/L Chloride (96-108) mmol/L Carbon Dioxide (22-29) mmol/L Anion Gap (12-20) BUN (9-16) mg/dL Creatinine (0.5-1.4) mg/dL Estim Creat Clear Calc Estimated GFR Random Glucose (60-115) mg/dL Calcium (8.4-10.2) mg/dL Total Bilirubin (0.0-1.0) mg/dL Direct Bilirubin (0.0-0.5) mg/dL AST (5-31) U/L ALT (0-31) U/L Alkaline Phosphatase (39-117) U/L Troponin I High Sens (<3.5-17.0) ng/L B-Natriuretic Peptide 91 (<100) pg/mL Total Protein (6.5-8.0) g/dL Albumin (3.5-5.0) g/dL Lipase (8-78) U/L Urine Color Yellow Urine Appearance Clear Urine pH 5.5 (5.0-9.0) Ur Specific [place] <= 1.005 (1.005-1.025) Urine Protein Negative (Neg-Trace) mg/dL Urine Glucose (UA) Negative (Negative) mg/dL Urine Ketones Negative (Negative) mg/dL Urine Blood Negative (Negative) Urine Nitrite Negative (Negative) Ur Leukocyte Esterase Negative (Negative) Independent Interpretation I performed an independent interpretation of an: EKG (Normal sinus rhythm at 75 beats per minutes was the AC, normal intervals, no ST-T changes.), Plain X-Ray (Chest:There is approximately 1 cm density projecting over the left upper lobe could be a prominent first chondrocostal junction VERSUS LUNG NODULE. Attention to follow-up chest PA and lateral inspiration expiration and both obliques and/or CT scan recommended. ) and CT Scan (Chest CT: No acute intrathoracic pathology.) Radiology Impression Discussion of test interpretation with radiology: I have reviewed the radiologist's reading. Discharge Plan Discharge Clinical Impression: Orthostatic dizziness Patient Disposition: Home, Self-Care Instructions: Dizziness (ED) Prescriptions: No Action lisinopril 10 mg tablet 10 mg PO DAILY Qty: 90 3RF cyclobenzaprine 5 mg tablet 5 mg PO BEDTIME PRN (Reason: muscle spasm) Qty: 4 0RF fluticasone propionate 50 mcg/actuation spray,suspension 1 spray intranasal BID PRN (Reason: congestion) glucosamine sulfate 750 mg tablet 750 mg PO ONCE Rx Instructions: administer with meals multivitamin Tablet 1 tab PO DAILY homavvyo-quzmdaykf-WQ 3.5-10,000-1 mg/mL-unit/mL-% drops,suspension 4 drp otic (ear) left TID 10 Days Qty: 10 0RF lorazepam 0.5 mg tablet 0.5 mg PO DAILY PRN (Reason: anxiety) Qty: 10 0RF fluconazole [Diflucan] 150 mg tablet 150 mg PO Q3D 0 Days Qty: 2 0RF Rx Instructions: may repeat second dose 72 hrs after first dose if symptoms persist hydrochlorothiazide 25 mg tablet 25 mg PO QAM Qty: 30 1RF nitrofurantoin monohyd/m-cryst [Macrobid] 100 mg capsule 100 mg PO Q12H 5 Days Qty: 10 0RF Rx Instructions: must administer with a meal/food Referrals: Viola Mack MD [Primary Care Provider] -
[2023-01-09] MEDS: 0.9 % Sodium Chloride 1,000 ML 999 ML IV (18:03)
[2023-01-09 18:07] LABS: MANUAL DIFF FLAG NO
[2023-01-09 18:08] LABS: Basophils Percent Auto 0.4 % (0-2); Eosinophils Absolute Auto 0.1 X10*3/uL (0.0-0.4); Hematocrit 38.7 % (37.0-47.0); Hemoglobin 12.5 g/dl (12.0-16.0); Imm Gran Abs Auto 0.05 X10*3/uL (0.00-0.03); Imm Gran Pct Auto 0.4 % (0.0-0.4); Lymphocytes Absolute Auto 1.2 X10*3/uL (1.2-4.9); Lymphocytes Percent Auto 10.4 % (20-40); Mean Corpuscular HGB Conc 32.3 g/dl (31.0-35.0); Mean Corpuscular Hemoglobin 30.1 pg (27.0-33.0); Mean Corpuscular Volume 93.3 fL (80.0-98.0); Mean Platelet Volume 9.2 fL (9.4-12.3); Monocytes Absolute Auto 0.8 X10*3/uL (0.1-1.2); Neutrophils Absolute Auto 9.1 x10*3/uL (2.0-8.3); Neutrophils Percent Auto 80.8 % (45-73); Platelet Count 229 X10*3/uL (160-400); Red Blood Count 4.15 X10*6/uL (4.20-5.50); Red Cell Distribution Width 14.6 % (11.0-16.0); White Blood Count 11.2 X10*3/uL (4.8-10.8)
[2023-01-09 18:23] LABS: Alanine Aminotransferase 22 U/L (0-31); Albumin Level 4.1 g/dL (3.5-5.0); Alkaline Phosphatase 75 U/L (39-117); Anion Gap 17 (12-20); Aspartate Amino Transferase 19 U/L (5-31); Bilirubin Direct 0.2 mg/dL (0.0-0.5); Bilirubin Total 0.6 mg/dL (0.0-1.0); Blood Urea Nitrogen 42 mg/dL (9-16); Calcium 9.4 mg/dL (8.4-10.2); Carbon Dioxide 19 mmol/L (22-29); Chloride 107 mmol/L (96-108); Creatinine Clr Calc Pharmacy 38.8; Estimated Glomerular Filt Rate 27; Glucose Random 89 mg/dL (60-115); Lipase 57 U/L (8-78); Potassium 4.8 mmol/L (3.3-5.1); Sodium 138 mmol/L (135-145); Total Protein 6.8 g/dL (6.5-8.0)
[2023-01-09 18:29] LABS: B Type Natriuretic Peptide 91 pg/mL (<100)
[2023-01-09 18:30] LABS: Troponin-I High Sensitivity 13.6 ng/L (<3.5-17.0)
[2023-01-09 19:59] VITALS: BP 139/49; PULSE 81
[2023-01-09 20:00] VITALS: BP 138/45; PULSE 78
[2023-01-09 20:03] VITALS: BP 119/58; PULSE 94
--- NOTE | 2023-01-09 20:08 | ECG_ITS ---
Test Reason : REPEAT Blood Pressure : / mmHG Vent. Rate : 081 BPM Atrial Rate : 081 BPM P-R Int : 162 ms QRS Dur : 080 ms QT Int : 362 ms P-R-T Axes : 070 003 040 degrees QTc Int : 420 ms Sinus rhythm with Premature atrial complexes Cannot rule out Inferior infarct (cited on or before 09-JAN-2023) Abnormal ECG When compared with ECG of 09-JAN-2023 17:22, No significant change was found Referred By: Kortney Williamson Electronically Signed By:GUILLE DALTON MD
[2023-01-09 20:15] LABS: Appearance Urine Clear; Color Urine Yellow; Glucose Urine UA Negative (Negative); Leukocyte Esterase Urine Negative (Negative); Nitrite Urine Negative (Negative); PH 5.5 (5.0-9.0); Specific Gravity - Urine <= 1.005 (1.005-1.025); Urine Blood Negative (Negative); Urine Ketones Negative (Negative); Urine Protein Negative (Neg-Trace)
[2023-01-09 20:16] VITALS: BP 132/40; PULSE 75; RESP 17; TEMP 36.7; O2SAT 96
[2023-01-09 22:13] VITALS: BP 127/40; PULSE 71; RESP 15; TEMP 36.5; O2SAT 97
== END 2023-01-09 22:37 | disposition home or self-care (01) ==
PROVIDERS: Emergency Provider Emergency Medicine; PCP Internal Medicine
DX: I95.1 Orthostatic hypotension (principal); R42 Dizziness and giddiness; M54.2 Cervicalgia; I12.9 Hypertensive chronic kidney disease with stage 1 through stage 4 chronic kidney disease, or unspecified chronic kidney disease; N18.30 Chronic kidney disease, stage 3 unspecified; E78.5 Hyperlipidemia, unspecified
CPT/HCPCS: 36415; 70450; 71045; 71250; 80048; 80076; 81003; 83690; 83880; 84484; 85025; 93005; 96360; 99284

== ENCOUNTER 2023-01-30 14:15 | Outpatient (REF) | payer OTHER, SELFPAY ==
--- NOTE | ~2023-01-30 | US_ITS ---
EXAMINATION: US EXTRACRANIAL CAROTID DUPLEX, BILATERAL CLINICAL INFORMATION: Dizziness. Hypertension. Hyperlipidemia. COMPARISON: None available. TECHNIQUE: Real-time ultrasound and Doppler techniques (integrating B-mode 2-D vascular images, Doppler spectral analysis and color-flow Doppler imaging) were utilized to interrogate the extracranial carotid arteries, the vertebral arteries and proximal subclavian arteries bilaterally. The degree of stenosis is determined by criteria similar to NASCET. FINDINGS: Right Side: 1. There is no atherosclerotic plaque seen in the bifurcation/proximal ICA region. 2. The common carotid artery PSV proximally is 129 cm/s and distally 83 cm/s. 3. The proximal internal carotid artery velocities are 71 cm/s systolic and 14 cm/s diastolic. 4. The proximal external carotid artery PSV is 97 cm/s. 5. The vertebral artery shows antegrade flow. 6. The subclavian artery velocity is mildly elevated 215 cm/s. Left Side: 1. There is no atherosclerotic plaque seen in the bifurcation/proximal ICA region. 2. The common carotid artery PSV proximally is 164 cm/s and distally 82 cm/s. 3. The proximal internal carotid artery velocities are 102 cm/s systolic and 15 cm/s diastolic. 4. The proximal external carotid artery PSV is 125 cm/s. 5. The vertebral artery shows antegrade flow. 6. The subclavian artery waveforms are normal. US/US carotid duplex BI IMPRESSION: 1. RIGHT: Normal right internal carotid artery without atherosclerotic plaque or hemodynamically significant stenosis. 2. LEFT: Normal left internal carotid artery without atherosclerotic plaque or hemodynamically significant stenosis. 3. Mildly elevated velocity right subclavian artery may indicate moderate stenosis.
--- NOTE | 2023-01-30 14:32 | HM_ITS ---
* Total monitoring time about 6 days. * Underlying rhythm is sinus. Average ventricular rate 72/Min. Range 51 to 116/Min. * Frequent supraventricular ectopy with a burden of 1.9%. Very brief runs. * Rare ventricular ectopy with minimal burden. * No significant pauses or AV blocks. * Patient Marker count-5, in association with sinus rhythm, supraventricular ectopy. Diary events including palpitations correlate with these markers. MTDD
== END 2023-01-30 14:16 | disposition home or self-care (01) ==
LOC: HO.US 14:15
PROVIDERS: PCP Internal Medicine; Visit Provider Internal Medicine
DX: R42 Dizziness and giddiness (principal); N18.30 Chronic kidney disease, stage 3 unspecified; R09.89 Other specified symptoms and signs involving the circulatory and respiratory systems
CPT/HCPCS: 93242; 93880

== ENCOUNTER 2023-02-20 09:44 | Outpatient (REF) | payer OTHER, SELFPAY ==
[2023-02-20 11:33] LABS: MANUAL DIFF FLAG NO
[2023-02-20 11:57] LABS: Basophils Absolute Auto 0.1 X10*3/uL (0.0-0.2); Basophils Percent Auto 0.6 % (0-2); Eosinophils Absolute Auto 0.1 X10*3/uL (0.0-0.4); Eosinophils Percent Auto 1.5 % (0-4); Hemoglobin 11.4 g/dl (12.0-16.0); Imm Gran Abs Auto 0.04 X10*3/uL (0.00-0.03); Imm Gran Pct Auto 0.5 % (0.0-0.4); Lymphocytes Absolute Auto 1.4 X10*3/uL (1.2-4.9); Lymphocytes Percent Auto 17.9 % (20-40); Mean Corpuscular HGB Conc 31.7 g/dl (31.0-35.0); Mean Corpuscular Hemoglobin 29.7 pg (27.0-33.0); Mean Corpuscular Volume 93.8 fL (80.0-98.0); Mean Platelet Volume 9.9 fL (9.4-12.3); Monocytes Absolute Auto 0.7 X10*3/uL (0.1-1.2); Monocytes Percent Auto 8.4 % (2-11); Neutrophils Absolute Auto 5.6 x10*3/uL (2.0-8.3); Neutrophils Percent Auto 71.1 % (45-73); Platelet Count 311 X10*3/uL (160-400); Red Blood Count 3.84 X10*6/uL (4.20-5.50); Red Cell Distribution Width 15.7 % (11.0-16.0); White Blood Count 7.9 X10*3/uL (4.8-10.8)
[2023-02-20 12:55] LABS: Alanine Aminotransferase 14 U/L (0-31); Alkaline Phosphatase 85 U/L (39-117); Anion Gap 11 (12-20); Aspartate Amino Transferase 16 U/L (5-31); Bilirubin Total 0.4 mg/dL (0.0-1.0); Blood Urea Nitrogen 25 mg/dL (9-16); Calcium 9.6 mg/dL (8.4-10.2); Carbon Dioxide 25 mmol/L (22-29); Chloride 108 mmol/L (96-108); Cholesterol 229 mg/dL; Estimated Glomerular Filt Rate 44; Glucose Fasting 86 mg/dL (60-99); HDL Cholesterol 53 mg/dL; LDL Cholesterol Calculated 148 mg/dl; Potassium 4.4 mmol/L (3.3-5.1); Sodium 140 mmol/L (135-145); Total Protein 6.6 g/dL (6.5-8.0); Triglycerides 144 mg/dL
== END 2023-02-20 09:45 | disposition home or self-care (01) ==
LOC: HO.HMGCLDS 09:44
PROVIDERS: PCP Internal Medicine; Visit Provider Internal Medicine
DX: N18.30 Chronic kidney disease, stage 3 unspecified (principal); E55.9 Vitamin D deficiency, unspecified; R26.89 Other abnormalities of gait and mobility; D64.9 Anemia, unspecified
CPT/HCPCS: 36415; 80053; 80061; 85025

== ENCOUNTER 2023-02-25 14:00 | Outpatient (RCR) | payer OTHER, SELFPAY ==
[2023-01-28 14:19] VITALS: BP 130/65
== END 2023-02-25 16:24 | disposition home or self-care (01) ==
LOC: HO.PTCHIC 14:00
PROVIDERS: PCP Internal Medicine; Visit Provider Internal Medicine
DX: M54.2 Cervicalgia (principal)
CPT/HCPCS: 97110; 97140; 97161

== ENCOUNTER → 2023-02-26 14:15 | Outpatient (BNVA) | payer OTHER, SELFPAY | PROVIDERS: PCP Internal Medicine; Referring Provider Internal Medicine; Visit Provider Internal Medicine ==

== ENCOUNTER 2023-06-24 09:46 | Outpatient (AMB) | payer OTHER, SELFPAY ==
--- NOTE | 2023-06-24 09:52 | A.OFFPC_ITS ---
Vital Signs 06/24/23 09:56 Height 5 ft 9 in Weight 269 lb BMI 39.7 BP 142/62 H Blood Pressure Location Lt brachial Position Sitting Pulse 74 Pulse Source Pulse Oximeter Pulse Oximetry (%) 97 Oxygen Delivery Method Room Air Intake Visit Reasons: 4 month follow up Intake Note: Pt is here today for 4 months follow up visit. Allergies erythromycin base Allergy (Unknown, Verified 06/24/23 09:59) upset stomach nausea Medication List - Last Reconciled 06/24/23 by Viola Mack MD amlodipine 5 mg PO DAILY fluticasone propionate 50 mcg/actuation 1 spray intranasal BID PRN glucosamine sulfate 750 mg PO ONCE ketoconazole 2% 1 appl topical DAILY lisinopril 10 mg PO DAILY lorazepam 0.5 mg PO DAILY PRN multivitamin 1 tab PO DAILY nystatin 1 appl topical BID-TID peg 3350-electrolytes 236-22.74-6.74 -5.86 gram (Golytely) 240 mL PO Q10M Tobacco use date assessed: 06/24/23 Dental Screening Dental Screen Date: 06/24/23 Did you have a dental visit in the last 12 months?: Yes Did you have a dental problem in the last 6 months where you did not have access to dental care?: No Was dental information given to patient?: Patient has dentist HPI 4 month follow up HPI Details Pt presents for f/u HTN, CKD 3, stable on meds. Pt had chronic episodes for palpitations lasting a few secs, not related activites. Patient had negative Holter and normal echocardiogram. she has an appointment scheduled with calender operator helper next month. Patient is going to [place] in August to visit her niece. [facility] Medical History (Updated 06/24/23 @ 11:15 by Viola Mack MD) Chest pain Hyperlipemia Annual physical exam Mammogram normal DJD (degenerative joint disease), lumbar Anxiety Overweight HTN (hypertension) Surgical History H/O colonoscopy No pertinent past surgical history Family History Father No problems noted. Mother HTN (hypertension) Social History Housing: House Alcohol intake: current Alcohol intake frequency: a few times a month Patient Tobacco Use Status: Never used Tobacco e-Cigarette/Vaping Use: Never Used Second Hand Smoke Exposure: No service: No Current occupational status: retired Cognitive needs: No Hearing needs: No Vision needs: Yes Questionnaire Thrive Questionnaire Date Thrive assessed: 10/22/22 HANNA-7 AMB Questionnaire HANNA-7 Date HANNA - 7 assessed: 10/22/22 Source: Developed by Drs. Gopi Baker, Stefani Doyle, Alfonso Carey and colleagues, with an educational jeancarlos from [employer]. Review of Systems Const All systems reviewed & are unremarkable except as noted in HPI and below Reports no additional complaints Eyes Reports no additional complaints ENT Reports no additional complaints Card Reports no additional complaints Resp Reports no additional complaints GI Reports no additional complaints Reports no additional complaints Musc Reports no additional complaints Physical exam (Primary Care) Vital Signs: Last Vital Signs Pulse 74 06/24/23 09:56 BP 142/62 H 06/24/23 09:56 Pulse Ox 97 06/24/23 09:56 Oxygen Delivery Method Room Air 06/24/23 09:56 BMI result Body Mass Index 39.7 Tobacco/Smoking Status: Tobacco use Status Tobacco use date assessed 06/24/23 06/24/23 10:02 Patient Tobacco Use Status Never used Tobacco 06/24/23 09:55 e-Cigarette/Vaping Use Never Used 06/24/23 09:55 Thrive Assessment: Date of Thrive Assessment Date Thrive assessed 10/22/22 06/24/23 09:55 Const General: no acute distress HENMT Face and sinus: Yes normal facial exam Eyes General: appearance normal, both eyes and all related structures Neck Neck: Yes supple Resp Effort & Inspection: normal respiratory effort Auscultation: clear to auscultation bilaterally Cardio Rhythm: regular rhythm Heart sounds: S1 normal heart sound present and S2 normal heart sound present GI Inspection: Yes normal to inspection Palpation (GI): Soft to palpation Auscultation: normal bowel sounds Assessment and Plan Assessment & Plan (1) CKD (chronic kidney disease) stage 3, GFR 30-59 ml/min: Code(s): N18.30 - Chronic kidney disease, stage 3 unspecified Plan: Monitor renal function avoid NSAIDs (2) HTN (hypertension): Code(s): I10 - Essential (primary) hypertension Plan: Continue current medications (3) Hyperkalemia: Code(s): E87.5 - Hyperkalemia (4) Annual physical exam: Code(s): Z00.00 - Encounter for general adult medical examination without abnormal findings Plan: Well-balanced diet , regular physical activity and weight loss discussed with patient (5) Palpitations: Comment: Normal echo and Holter 09/27 Code(s): R00.2 - Palpitations (6) Morbid obesity: Code(s): E66.01 - Morbid (severe) obesity due to excess calories Plan: Weight loss discussed with the patient (7) Hyperlipemia: Comment: Patient refuses statin Code(s): E78.5 - Hyperlipidemia, unspecified Plan: Continue low-cholesterol diet Orders: Orders TSH reflex Free T4 2 Months E87.5 - Hyperkalemia, I10 - Essential (primary) hypertension, N18.30 - Chronic kidney disease, stage 3 unspecified, Z00.00 - Encounter for general adult medical examination without abnormal findings Comprehensive [place]. Panel Fast 2 Months E87.5 - Hyperkalemia, I10 - Essential (primary) hypertension, N18.30 - Chronic kidney disease, stage 3 unspecified, Z00.00 - Encounter for general adult medical examination without abnormal findings Complete Blood Count Auto Diff 2 Months E87.5 - Hyperkalemia, I10 - Essential (primary) hypertension, N18.30 - Chronic kidney disease, stage 3 unspecified, Z00.00 - Encounter for general adult medical examination without abnormal findings Lipid Panel 2 Months E87.5 - Hyperkalemia, I10 - Essential (primary) hype rtension, N18.30 - Chronic kidney disease, stage 3 unspecified, Z00.00 - Encounter for general adult medical examination without abnormal findings Coding Level of Care Code Est Pt Level 4 (93216) Diagnoses CKD (chronic kidney disease) stage 3, GFR 30-59 ml/min N18.30 HTN (hypertension) I10 Hyperkalemia E87.5 Annual physical exam Z00.00 Palpitations R00.2 Morbid obesity E66.01 Hyperlipemia E78.5
[2023-06-24 09:56] VITALS: BP 142/62; PULSE 74; O2SAT 97; BMI 39.7
== END 2023-06-24 11:12 | disposition home or self-care (01) ==
PROVIDERS: Visit Provider Internal Medicine
DX: I12.9 Hypertensive chronic kidney disease with stage 1 through stage 4 chronic kidney disease, or unspecified chronic kidney disease (principal); N18.30 Chronic kidney disease, stage 3 unspecified; E66.01 Morbid (severe) obesity due to excess calories; Z68.39 Body mass index [BMI] 39.0-39.9, adult; E87.5 Hyperkalemia; R00.2 Palpitations; E78.5 Hyperlipidemia, unspecified
CPT/HCPCS: 99214

== ENCOUNTER 2023-08-05 14:32 | Outpatient (AMB) | payer OTHER, SELFPAY ==
--- NOTE | 2023-08-05 14:57 | A.OFFVIS_ITS ---
Intake Vital Signs 08/05/23 14:58 Height 5 ft 9 in Weight 272 lb 0.807 oz BMI 40.2 BP 150/64 H Blood Pressure Location Lt brachial Position Sitting Pulse 85 Intake Visit Reasons: NPV/Palpitations/J. Cichon Intake Note: NPV Burial Vault Maker Required: No Accompanied by: Self / Same As Patient Allergies erythromycin base Allergy (Unknown, Verified 08/05/23 15:00) upset stomach nausea Medication List - Last Reconciled 08/05/23 by Chapo Patel MD amlodipine 5 mg PO DAILY fluticasone propionate 50 mcg/actuation 1 spray intranasal BID PRN glucosamine sulfate 750 mg PO ONCE ketoconazole 2% 1 appl topical DAILY lisinopril 10 mg PO DAILY lorazepam 0.5 mg PO DAILY PRN multivitamin 1 tab PO DAILY nystatin 1 appl topical BID-TID HPI HPI Comments History of Present Illness Details Radha is here for consultation regarding palpitations. She states that she has been having palpitations for the last several months. She states that her heart rate goes up as much as 170/Min and that last for about a minute or so before improving. No history of any coronary disease or myocardial infarction or cardiomyopathy. She is morbidly obese. Not diagnosed to have any obs tructive sleep apnea. otherwise, has hypertension and CKD. [facility] Medical History (Updated 08/05/23 @ 15:07 by Chapo Patel MD) Chest pain Hyperlipemia Annual physical exam Mammogram normal DJD (degenerative joint disease), lumbar Anxiety Overweight HTN (hypertension) Surgical History H/O colonoscopy No pertinent past surgical history Family History Father No problems noted. Mother HTN (hypertension) Social History Housing: House Alcohol intake: current Alcohol intake frequency: a few times a month Patient Tobacco Use Status: Never used Tobacco e-Cigarette/Vaping Use: Never Used Second Hand Smoke Exposure: No service: No Current occupational status: retired Cognitive needs: No Hearing needs: No Vision needs: Yes Review of Systems Const Denies chills, Denies daytime sleepiness, Denies fatigue, Denies fever(s), Denies frequent falls, Denies night sweats, Denies snoring, Denies weakness, Denies weight gain and Denies weight loss Eyes Denies loss of vision ENT Denies dizziness and Denies hearing loss Card Denies chest pain, Denies chest pain with activity, Denies syncope, Denies rapid heart rate, Denies edema, Denies claudication, Denies leg edema, Denies lightheadedness, Denies palpitations, Denies dyspnea, Denies dyspnea on exertion and Denies orthopnea Resp Denies cough, Denies excessive phlegm production, Denies dyspnea, Denies dyspnea on exertion, Denies snoring and Denies wheezing GI Denies abdominal pain, Denies hematochezia, Denies change in bowel habits, Denies change in stool character, Denies heartburn, Denies nausea and Denies vomiting Denies hematuria, Denies urinary frequency and Denies dysuria Musc Denies arthralgias, Denies muscle weakness, Denies numbness and Denies tingling Skin/Breast Denies nail changes and Denies rash Neuro Denies Abnormal speech present, Denies dizziness, Denies syncope, Denies frequent falls, Denies loss of vision, Denies memory loss, Denies numbness, Denies tingling and Denies weakness Psych Denies depression and Denies memory loss Endo Denies fatigue and Denies palpitations Aller/Immun Denies wheezing Physical Exam Vital Signs: Last Vital Signs Pulse 85 08/05/23 14:58 BP 150/64 H 08/05/23 14:58 BMI result Body Mass Index 40.2 Const General: comfortable and no acute distress Orientation/consciousness: patient oriented x3 HEENT Other: Unremarkable Head: Yes normal to inspection Neck Neck: Yes normal visual inspection Chest Chest palpation & inspection: normal inspection of the chest Resp Auscultation: clear to auscultation bilaterally Cardio Palpation: normal PMI Heart sounds: S1 normal heart sound present, S2 normal heart sound present, no gallops, Murmur heart sound present systolic I/ and at the right sternal border and no rubs GI Palpation (GI): Soft to palpation Back/Spine/Pelvis Other: unremarkable Skin General skin exam: no rashes or lesions noted Neuro General: patient oriented x3 Speech: No Abnormal speech present Extrem General: Yes normal to inspection Psych Mental Status: mental status grossly normal Assessment & Plan Assessment & Plan (1) Atrial arrhythmia: Code(s): I49.8 - Other specified cardiac arrhythmias Plan Twelve lead EKG shows sinus rhythm at 81/Min; premature supraventricular ectopy; normal NM and corrected QT. Echocardiogram with LVEF of 65-70%; no significant valvular issues. Holter shows sinus rhythm with an average rate of 77/Min and occasional PACs with short runs of SVT. Overall, symptoms of palpitations could be related to the atrial arrhythmias. Will need to ensure there is no atrial fibrillation. Hence we will do a 30 day monitor. Considering her obesity, we will also do home sleep study to look for obstructive sleep apnea. Follow-up after the above. Orders: Orders ECG 30 day event monitor Today I48.0 - Paroxysmal atrial fibrillation, I49.8 - Other specified cardiac arrhythmias RT home sleep study Today G47.33 - Obstructive sleep apnea (adult) (pediatric), I49.8 - Other specified cardiac arrhythmias Coding Level of Care Code New Pt Level 3 (19618) Diagnoses Atrial arrhythmia I49.8
[2023-08-05 14:58] VITALS: BP 150/64; PULSE 85; BMI 40.2
== END 2023-08-05 15:15 | disposition home or self-care (01) ==
PROVIDERS: PCP Internal Medicine; Visit Provider Internal Medicine
DX: I49.8 Other specified cardiac arrhythmias (principal)
CPT/HCPCS: 99213

== ENCOUNTER → 2023-08-05 14:32 | Outpatient (BNVA) | payer OTHER, SELFPAY | PROVIDERS: PCP Internal Medicine; Visit Provider Internal Medicine ==

== ENCOUNTER → 2023-08-13 10:44 | Outpatient (REF) | payer OTHER, SELFPAY ==
--- NOTE | 2023-08-13 10:47 | HM_ITS ---
* Total procedural length 30 days. Wear time 29.8 days. * Average ventricular rate 71/Min. Range 53 to 156/Min. * Rare supraventricular ectopy with very brief runs. * Rare ventricular ectopy. * No sustained arrhythmias. * No significant pauses or AV blocks. * Patient had activated the symptom button but no clear diary events. MTDD
== END ==
LOC: HO.CARD 10:44
PROVIDERS: PCP Internal Medicine; Visit Provider Internal Medicine
DX: I48.0 Paroxysmal atrial fibrillation (principal); I49.8 Other specified cardiac arrhythmias
CPT/HCPCS: 93270

== ENCOUNTER → 2023-08-13 10:47 | Outpatient (BNV) | payer OTHER, SELFPAY | PROVIDERS: PCP Internal Medicine; Visit Provider Internal Medicine | DX: I47.10 Supraventricular tachycardia, unspecified (principal) | CPT/HCPCS: 93272 ==

== ENCOUNTER 2023-08-28 09:25 | Outpatient (REF) | payer OTHER, SELFPAY ==
[2023-08-28 11:58] LABS: MANUAL DIFF FLAG NO
[2023-08-28 12:12] LABS: Basophils Absolute Auto 0.1 X10*3/uL (0.0-0.2); Basophils Percent Auto 0.7 % (0-2); Eosinophils Absolute Auto 0.1 X10*3/uL (0.0-0.4); Eosinophils Percent Auto 1.2 % (0-4); Hematocrit 37.7 % (37.0-47.0); Imm Gran Abs Auto 0.02 X10*3/uL (0.00-0.03); Imm Gran Pct Auto 0.3 % (0.0-0.4); Lymphocytes Absolute Auto 1.3 X10*3/uL (1.2-4.9); Lymphocytes Percent Auto 17.8 % (20-40); Mean Corpuscular HGB Conc 31.8 g/dl (31.0-35.0); Mean Corpuscular Hemoglobin 31.6 pg (27.0-33.0); Mean Corpuscular Volume 99.2 fL (80.0-98.0); Mean Platelet Volume 10.2 fL (9.4-12.3); Monocytes Absolute Auto 0.6 X10*3/uL (0.1-1.2); Monocytes Percent Auto 8.3 % (2-11); Neutrophils Absolute Auto 5.3 x10*3/uL (2.0-8.3); Neutrophils Percent Auto 71.7 % (45-73); Platelet Count 298 X10*3/uL (160-400); Red Cell Distribution Width 14.3 % (11.0-16.0); White Blood Count 7.4 X10*3/uL (4.8-10.8)
[2023-08-28 12:57] LABS: Alanine Aminotransferase 16 U/L (0-31); Albumin Level 4.2 g/dL (3.5-5.0); Alkaline Phosphatase 77 U/L (39-117); Anion Gap 12 (12-20); Aspartate Amino Transferase 18 U/L (5-31); Bilirubin Total 0.4 mg/dL (0.0-1.0); Blood Urea Nitrogen 19 mg/dL (9-16); Calcium 9.5 mg/dL (8.4-10.2); Carbon Dioxide 24 mmol/L (22-29); Chloride 107 mmol/L (96-108); Cholesterol 246 mg/dL (<200); Estimated Glomerular Filt Rate 36; Glucose Fasting 82 mg/dL (60-99); HDL Cholesterol 59 mg/dL (>40); LDL Cholesterol Calculated 159 mg/dL (<100); Potassium 3.9 mmol/L (3.3-5.1); Sodium 139 mmol/L (135-145); TSH reflex Free T4 2.46 uIU/mL (0.32-4.0); Total Protein 7.4 g/dL (6.5-8.0); Triglycerides 140 mg/dL (<150)
== END 2023-08-28 09:26 | disposition home or self-care (01) ==
LOC: HO.HMGCLDS 09:25
PROVIDERS: PCP Internal Medicine; Visit Provider Internal Medicine
DX: Z00.00 Encounter for general adult medical examination without abnormal findings (principal); E87.5 Hyperkalemia; I12.9 Hypertensive chronic kidney disease with stage 1 through stage 4 chronic kidney disease, or unspecified chronic kidney disease; N18.30 Chronic kidney disease, stage 3 unspecified
CPT/HCPCS: 36415; 80053; 80061; 84443; 85025

== ENCOUNTER 2023-09-03 11:18 | Outpatient (AMB) | payer OTHER, SELFPAY ==
[2023-09-03 11:26] VITALS: BP 136/74; PULSE 75; O2SAT 99; BMI 40.2
--- NOTE | 2023-09-03 11:26 | MHC.PC.OV ---
Vital Signs 09/03/23 11:26 Height 5 ft 9 in Weight 272 lb BMI 40.2 BP 136/74 Blood Pressure Location Lt brachial Position Sitting Pulse 75 Pulse Source Pulse Oximeter Pulse Oximetry (%) 99 Oxygen Delivery Method Room Air Intake Visit Reasons: Annual PE Intake Note: Pt is here today for a pre op visit. Pt is having cataract surgery on 09/09/23 and 09/16/[address] Riggins. Allergies erythromycin base Allergy (Unknown, Verified 09/03/23 11:28) upset stomach nausea Medication List - Last Reconciled 09/03/23 by Viola Mack MD amlodipine 5 mg PO DAILY Farxiga (dapagliflozin propanediol) 5 mg PO DAILY NS fluticasone propionate 50 mcg/actuation 1 spray intranasal BID PRN glucosamine sulfate 750 mg PO ONCE ketoconazole 2% 1 appl topical DAILY lisinopril 10 mg PO DAILY lorazepam 0.5 mg PO DAILY PRN multivitamin 1 tab PO DAILY nystatin 1 appl topical BID-TID Tobacco use date assessed: 09/03/23 HPI Annual PE HPI Details Patient presents for annual physical and pre up for cataract surgery. She denies new complaints. Patient is wearing 30 day quality assurance monitor body for chronic palpitations. [facility] Medical History (Updated 09/03/23 @ 12:29 by Viola Mack MD) Chest pain Hyperlipemia Annual physical exam Mammogram normal DJD (degenerative joint disease), lumbar Anxiety Overweight HTN (hypertension) Surgical History (Updated 09/03/23 @ 12:29 by Viola Mack MD) H/O colonoscopy No pertinent past surgical history Family History Father No problems noted. Mother HTN (hypertension) Social History Housing: House Alcohol intake: current Alcohol intake frequency: a few times a month Patient Tobacco Use Status: Never used Tobacco e-Cigarette/Vaping Use: Never Used Second Hand Smoke Exposure: No service: No Current occupational status: retired Cognitive needs: No Hearing needs: No Vision needs: Yes Questionnaire Thrive Questionnaire Date Thrive assessed: 10/22/22 HANNA-7 AMB Questionnaire HANNA-7 Date HANNA - 7 assessed: 10/22/22 Source: Developed by Drs. Gopi Baker, Stefani Doyle, Alfonso Carey and colleagues, with an educational jeancarlos from [employer] Review of Systems Const All systems reviewed & are unremarkable except as noted in HPI and below Reports no additional complaints Eyes Reports no additional complaints ENT Reports no additional complaints Card Reports no additional complaints Resp Reports no additional complaints GI Reports no additional complaints Reports no additional complaints Musc Reports no additional complaints Physical exam (Primary Care) Vital Signs: Last Vital Signs Pulse 75 09/03/23 11:26 BP 136/74 09/03/23 11:26 Pulse Ox 99 09/03/23 11:26 Oxygen Delivery Method Room Air 09/03/23 11:26 BMI result Body Mass Index 40.2 Tobacco/Smoking Status: Tobacco use Status Tobacco use date assessed 09/03/23 09/03/23 11:32 Patient Tobacco Use Status Never used Tobacco 09/03/23 11:32 e-Cigarette/Vaping Use Never Used 09/03/23 11:32 Thrive Assessment: Date of Thrive Assessment Date Thrive assessed 10/22/22 09/03/23 11:32 Const General: no acute distress HENMT Head: Yes normal to inspection Face and sinus: Yes normal facial exam Throat: Yes posterior oropharynx normal Neck Neck: Yes no lymphadenopathy and Yes supple Resp Effort & Inspection: normal respiratory effort Auscultation: clear to auscultation bilaterally Cardio Rhythm: regular rhythm Heart sounds: S1 normal heart sound present and S2 normal heart sound present GI Inspection: Yes normal to inspection Palpation (GI): Soft to palpation Percussion: Yes normal to percussion Auscultation: normal bowel sounds Assessment and Plan Assessment & Plan (1) Palpitations: Comment: Normal echo and Holter 09/27 Code(s): R00.2 - Palpitations Plan: f/u with cardiology for 30 day cardiac monitoring (2) CKD (chronic kidney disease) stage 3, GFR 30-59 ml/min: Code(s): N18.30 - Chronic kidney disease, stage 3 unspecified Plan: add Farxiga 5 mg and monitor renal function (3) Hyperlipemia: Comment: Patient refuses statin Code(s): E78.5 - Hyperlipidemia, unspecified Plan: low cholesterol diet discussed (4) Annual physical exam: Code(s): Z00.00 - Encounter for general adult medical examination without abnormal findings Plan: Well-balanced diet regular physical activity weight loss discussed with the patient. She is up-to-date with mammogram and will have a colonoscopy in November (5) Cataract: Code(s): H26.9 - Unspecified cataract Plan: Patient is medically cleared for cataract surgery (6) HTN (hypertension): Code(s): I10 - Essential (primary) hypertension Plan: Continue current medications (7) Morbid obesity: Code(s): E66.01 - Morbid (severe) obesity due to excess calories Plan: Weight loss discussed with the patient (8) H/O colonoscopy: Comment: at 61 [place] - negative, repeat scheduled for 11/30 Code(s): Z98.890 - Other specified postprocedural states Orders: Orders Comprehensive [place]. Panel Fast 3 Months E78.5 - Hyperlipidemia, unspecified, I10 - Essential (primary) hypertension, N18.30 - Chronic kidney disease, stage 3 unspecified Lipid Panel 3 Months E78.5 - Hyperlipidemia, unspecified, I10 - Essential (primary) hypertension, N18.30 - Chronic kidney disease, stage 3 unspecified Microalbumin, Random (w Creat) 3 Months E78.5 - Hyperlipidemia, unspecified, I10 - Essential (primary) hypertension, N18.30 - Chronic kidney disease, stage 3 unspecified TSH reflex Free T4 3 Months E78.5 - Hyperlipidemia, unspecified, I10 - Essential (primary) hypertension, N18.30 - Chronic kidney disease, stage 3 unspecified Medications: New Farxiga (dapagliflozin propanediol) 5 mg PO DAILY 90 tabs 2RF NS dapagliflozin propanediol (Farxiga) 5 mg PO DAILY 30 tabs 2RF Coding Level of Care Code Est Pt Prev Care >65y(58919) Diagnoses Palpitations R00.2 CKD (chronic kidney disease) stage 3, GFR 30-59 ml/min N18.30 Hyperlipemia E78.5 Annual physical exam Z00.00 Cataract H26.9 HTN (hypertension) I10 Morbid obesity E66.01 H/O colonoscopy Z98.890
== END 2023-09-03 12:40 | disposition home or self-care (01) ==
PROVIDERS: Visit Provider Internal Medicine
DX: Z00.00 Encounter for general adult medical examination without abnormal findings (principal); N18.30 Chronic kidney disease, stage 3 unspecified; E66.01 Morbid (severe) obesity due to excess calories; Z68.41 Body mass index [BMI] 40.0-44.9, adult; R00.2 Palpitations; E78.5 Hyperlipidemia, unspecified; H26.9 Unspecified cataract; I10 Essential (primary) hypertension; Z98.890 Other specified postprocedural states
CPT/HCPCS: 99397

== ENCOUNTER 2023-10-11 07:26 | Emergency (ER) | payer OTHER, SELFPAY ==
[2023-10-11 07:35] VITALS: BP 134/71; PULSE 148; RESP 20; TEMP 36.3; O2SAT 98; BMI 40.3
--- NOTE | 2023-10-11 08:03 | ED.ARRPALP ---
HPI - Arrhythmia/Palpitations General Chief Complaint: Arrhythmia/Palpitations Stated Complaint: fast heart rate, shoulder & jaw pain Time Seen by Provider: 10/11/23 07:53 Source: patient Mode of arrival: ambulatory History of Present Illness HPI narrative: 73-year-old female who arrives stating that she was started on a Medrol Dosepak yesterday, got up this morning to go to the bathroom and felt her heart racing. She states that this has happened 1 previous time, she was not started on anticoagulation but her heart monitor testing was all negative for recurrence. Patient took her pulse at home and noted that it was 146. Related Data Home Medications Medication Instructions Recorded Confirmed fluticasone propionate 50 1 spray intranasal BID PRN 08/09/20 09/03/23 mcg/actuation nasal congestion spray,suspension glucosamine sulfate 750 mg tablet 750 mg PO ONCE 08/09/20 09/03/23 multivitamin 1 tab PO DAILY 08/09/20 09/03/23 nystatin 100,000 unit/gram topical 1 appl topical BID-TID 02/26/23 09/03/23 powder Previous Rx's Medication Instructions Recorded lisinopril 10 mg tablet 10 mg PO DAILY #90 tabs 11/07/22 ketoconazole 2 % topical cream 1 appl topical DAILY #60 grams 02/25/23 lorazepam 0.5 mg tablet 0.5 mg PO DAILY PRN anxiety #10 08/01/23 tabs Farxiga 5 mg tablet (dapagliflozin 5 mg PO DAILY #90 tabs 09/03/23 propanediol) amlodipine 5 mg tablet 5 mg PO DAILY #90 tabs 10/02/23 apixaban 5 mg tablet (Eliquis) 5 mg PO BID 30 days #60 tabs 10/11/23 Allergies Allergy/AdvReac Type Severity Reaction Status Date / Time erythromycin base Allergy Unknown upset Verified 09/03/23 11:28 stomach nausea Review of Systems Review of Systems: Pertinent positives and negatives as stated in HPI PMFSH Past Medical History Source: nursing notes reviewed Onset Date is defined in the Problem List Problems that require an onset date and time if occurred within 24 hrs of arrival to the ED Aortic Dissection and Rupture; Neurologic impairment; Cardiopulmonary Arrest; Endotracheal Intubation; Insertion or Replacement of Mechanical Circulatory Assist Device Medical History Chest pain Hyperlipemia Annual physical exam Mammogram normal DJD (degenerative joint disease), lumbar Anxiety Overweight HTN (hypertension) Surgical History H/O colonoscopy No pertinent past surgical history Family History Family History Father No problems noted. Mother HTN (hypertension) Social History Social History Housing: House Alcohol intake: current Alcohol intake frequency: a few times a month Patient Tobacco Use Status: Never used Tobacco e-Cigarette/Vaping Use: Never Used Second Hand Smoke Exposure: No Advance Directives: No Advance Directives Information Provided: Yes service: No Current occupational status: retired Cognitive needs: No Hearing needs: No Vision needs: Yes Physical Exam Vital Signs: Vital Signs: Last Vital Signs Temp 98.0 F 10/11/23 08:38 Pulse 75 10/11/23 08:38 Resp 13 10/11/23 08:38 BP 147/59 H 10/11/23 08:38 Pulse Ox 99 10/11/23 08:38 O2 Del Method Room Air 10/11/23 08:38 BMI result Body Mass Index 40.3 VITAL SIGNS: Reviewed. GENERAL: Well developed, well nourished, in no acute distress. HEAD: Normocephalic/atraumatic EYES: PERRLA, EOMI EARS: Ext canals without abnormality NOSE: Nares patent bilateral OROPHARYNX: no oral lesions noted, posterior pharynx clear NECK: Supple, no adenopathy LUNGS: Normal breath sounds. No adventitious sounds or accessory muscle use. SpO2<98> CARDIOVASCULAR: Irregular, tachycardic without noted murmurs ABDOMEN: Soft, non-tender, non-distended with bowel sounds. MUSCULOSKELETAL: No tenderness, deformities, or effusions noted on gross inspection. EXTREMITIES: No cyanosis, clubbing or edema. SKIN: Inspection of the skin reveals no rashes NEUROLOGIC: Alert and oriented x 4. Strength and sensation to light touch were grossly intact x 4. Medications Administered Discontinued Medications Generic Name Dose Route Start Last Admin Trade Name Freq PRN Reason Stop Dose Admin Metoprolol Tartrate 5 mg 10/11/23 08:07 10/11/23 08:17 Metoprolol Tartrate 5 Mg/5 Ml Vial IVPUSH 10/11/23 08:08 5 mg ONCE ONE Administration Medical Decision Making Medical Decision Making [facility] Narrative: 73-year-old female with history and clinical presentation that appears to be consistent with paroxysmal atrial fibrillation but could be secondary to steroid use which she was provided for stress fracture and tendinitis in the right foot. EKG demonstrates atrial fibrillation with RVR, HR-137. 0820: Nurse informed me that after giving 2.5 mg of Lopressor heart rate is now controlled, repeat EKG from 05/29 demonstrates normal sinus rhythm with PACs. 0958: I discussed the case with Cardiology, and given patient's CHADS-VASc score-3, the recommendation is for her to be started on anticoagulation at this time. Patient received 1st dose of Eliquis here in the emergency room and also received a coupon for 30 day supply. Patient is currently in normal sinus rhythm. I discussed the findings with the patient at bedside and she understands that she will need to follow-up with cardiology as well as her primary care doctor because she will need repeat lab work in approximately 5 days to re-evaluate kidney function after being started on the Eliquis. I reviewed all investigations and hematologic indices demonstrate a non infectious leukocytosis and left shift associated with patient's recent steroid use, there is no anemia or thrombocytopenia. Chemistry indices do not demonstrate an FAUSTO and specifically creatinine -1.15, no electrolyte derangements. I sensitivity troponin detectable but chronically stable, other than the initial atrial fibrillation with RVR that has resolved and patient remains in normal sinus rhythm at this time. She is otherwise discharged. Differential Diagnosis Differential Diagnoses: The differential diagnosis associated with the presentation includes Please see the discussion above Admission/Observation Consideration of admission/observation: Escalation of care including admission/observation considered Please see the discussion above Consult Healthcare Provider Management of the patient was discussed with: Post Splitter Please see the discussion above Lab Data [facility] Lab Attestation statement: I reviewed the patient's lab results. Please see the discussion above 10/11/23 08:05 10/11/23 08:05 Labs: Lab Results 10/11/23 Range/Units 08:05 WBC 11.4 H (4.8-10.8) X10*3/uL RBC 4.03 L (4.20-5.50) X10*6/uL Hgb 12.5 (12.0-16.0) g/dl Hct 37.9 (37.0-47.0) % MCV 94.0 (80.0-98.0) fL MCH 31.0 (27.0-33.0) pg MCHC 33.0 (31.0-35.0) g/dl RDW 13.7 (11.0-16.0) % Plt Count 294 (160-400) X10*3/uL MPV 9.4 (9.4-12.3) fL Immature Gran % (Auto) 0.4 (0.0-0.4) % Neut % (Auto) 85.7 H (45-73) % Lymph % (Auto) 7.3 L (20-40) % Phelps % (Auto) 6.4 (2-11) % Eos % (Auto) 0.1 (0-4) % Baso % (Auto) 0.1 (0-2) % Lymph # (Auto) 0.8 L (1.2-4.9) X10*3/uL Phelps # (Auto) 0.7 (0.1-1.2) X10*3/uL Eos # (Auto) 0.0 (0.0-0.4) X10*3/uL Baso # (Auto) 0.0 (0.0-0.2) X10*3/uL Abs Immat Gran (auto) 0.04 H (0.00-0.03) X10*3/uL Absolute Neuts (auto) 9.8 H (2.0-8.3) x10*3/uL Absolute Nucleated RBC 0.000 (0.0-0.012) X10*3/uL Nucleated RBC % (auto) 0.0 (0.0-0.2) /100WBC Sodium 141 (135-145) mmol/L Potassium 4.5 (3.3-5.1) mmol/L Chloride 110 H (96-108) mmol/L Carbon Dioxide 20 L (22-29) mmol/L Anion Gap 16 (12-20) BUN 17 H (9-16) mg/dL Creatinine 1.15 (0.5-1.4) mg/dL Estim Creat Clear Calc 60.3 Estimated GFR 46 Random Glucose 122 H (60-115) mg/dL Calcium 10.1 D (8.4-10.2) mg/dL Troponin I High Sens 11.7 (<3.5-17.0) ng/L Independent Interpretation I performed an independent interpretation of an: EKG Interpretation: Atrial fibrillation with RVR, HR-137, no STEMI, QRS/QTC is within normal limits. Repeat EKG demonstrates normal sinus rhythm. External Record Review External record reviewed: Outpatient record and Prior outpatient labs Chronic Conditions Patient?s care impacted by: Hypertension Critical Care Time Critical Care Time Critical Care Time: Yes Total Critical Care Time: 60 Attestation: I personally attest to this time spent taking care of the patient. Discharge Plan Discharge Clinical Impression: Atrial fibrillation with RVR, Paroxysmal A-fib, Chronic anticoagulation Patient Disposition: Home, Self-Care Instructions: A-fib (Atrial Fibrillation) (ED), Blood Thinners (ED) Additional Instructions: 1. Resume all home medications as prescribed. 2. Please take the new medication as prescribed, he will receive the 1st dose here in the emergency room. 3. Please follow-up with your primary care doctor in the next 1-2 days, please call the office today to let your physician know that you were seen in the emergency room. 4. You have been given a referral to follow-up with cardiology as well. Return to the ER for any worsening symptoms. Prescriptions: New Eliquis 5 mg tablet 5 mg PO BID 30 Days Qty: 60 0RF No Action lisinopril 10 mg tablet 10 mg PO DAILY Qty: 90 3RF lorazepam 0.5 mg tablet 0.5 mg PO DAILY PRN (Reason: anxiety) Qty: 10 0RF amlodipine 5 mg tablet 5 mg PO DAILY Qty: 90 1RF fluticasone propionate 50 mcg/actuation spray,suspension 1 spray intranasal BID PRN (Reason: congestion) glucosamine sulfate 750 mg tablet 750 mg PO ONCE Rx Instructions: administer with meals multivitamin Tablet 1 tab PO DAILY ketoconazole 2 % cream 1 appl topical DAILY Qty: 60 1RF Farxiga 5 mg tablet 5 mg PO DAILY Qty: 90 2RF nystatin 100,000 unit/gram powder 1 appl topical BID-TID Referrals: Viola Mack MD [Primary Care Provider] - Micheal Rich MD [Physician] -
[2023-10-11 08:38] VITALS: BP 147/59; PULSE 75; RESP 13; TEMP 36.7; O2SAT 99
[2023-10-11 08:40] LABS: Anion Gap 16 (12-20); Blood Urea Nitrogen 17 mg/dL (9-16); Calcium 10.1 mg/dL (8.4-10.2); Carbon Dioxide 20 mmol/L (22-29); Chloride 110 mmol/L (96-108); Creatinine Clr Calc Pharmacy 60.3; Estimated Glomerular Filt Rate 46; Glucose Random 122 mg/dL (60-115); Potassium 4.5 mmol/L (3.3-5.1); Sodium 141 mmol/L (135-145)
== END 2023-10-11 10:57 | disposition home or self-care (01) ==
PROVIDERS: Emergency Provider Student in an Organized Health Care Education/Training Program; PCP Internal Medicine
DX: I49.8 Other specified cardiac arrhythmias (principal); R00.2 Palpitations; I48.20 Chronic atrial fibrillation, unspecified; Z79.01 Long term (current) use of anticoagulants
CPT/HCPCS: 36415; 80048; 84484; 85025; 93005; 96374; 99284

== ENCOUNTER → 2023-10-11 07:39 | Outpatient (BNV) | payer OTHER, SELFPAY | PROVIDERS: Emergency Provider Student in an Organized Health Care Education/Training Program; PCP Internal Medicine; Visit Provider Internal Medicine Cardiovascular Disease | DX: I49.1 Atrial premature depolarization (principal); I48.91 Unspecified atrial fibrillation | CPT/HCPCS: 93010 ==

== ENCOUNTER 2023-10-16 13:50 | Outpatient (AMB) | payer OTHER, SELFPAY ==
--- NOTE | 2023-10-16 14:04 | A.OFFVIS_ITS ---
Intake Vital Signs 10/16/23 14:07 Height 5 ft 9 in Weight 271 lb 2.697 oz BMI 40.0 BP 150/60 H Blood Pressure Location Lt brachial Position Sitting Pulse 77 Intake Visit Reasons: [facility] dc fu- rapid heart beat Intake Note: [facility] follow up Mailing Section Clerk Required: No Accompanied by: Self / Same As Patient Allergies erythromycin base Allergy (Unknown, Verified 10/16/23 14:07) upset stomach nausea methylprednisolone Adverse Reaction (Intermediate, Verified 10/16/23 14:08) rapid heart rate Medication List - Last Reconciled 10/16/23 by Chapo Patel MD amlodipine 5 mg PO DAILY apixaban (Eliquis) 5 mg PO BID 30 days Farxiga (dapagliflozin propanediol) 5 mg PO DAILY NS fluticasone propionate 50 mcg/actuation 1 spray intranasal BID PRN glucosamine sulfate 750 mg PO ONCE ketoconazole 2% 1 appl topical DAILY lisinopril 10 mg PO DAILY lorazepam 0.5 mg PO DAILY PRN multivitamin 1 tab PO DAILY nystatin 1 appl topical BID-TID HPI HPI Comments History of Present Illness Details Radha returns for follow-up. Recently seen in consultation regarding palpitations. This has been going on for many months. Sometimes, heart rates go up as much as 170/Min and that last for about a minute or so and then gets better. However, no known coronary disease, myocardial infarction or cardiomyopathy. She is morbidly obese. Recently, she apparently had to take Medrol Dosepak and that led to palpitations and she had ER visit. She was then diagnosed with atrial fibrillation rapid rate and got beta-blockers. Then went back to sinus rhythm. Also started on Eliquis. Otherwise, she is feeling okay. Still awaiting sleep study. Has hypertension and CKD. [facility] Medical History Chest pain Hyperlipemia Annual physical exam Mammogram normal DJD (degenerative joint disease), lumbar Anxiety Overweight HTN (hypertension) Surgical History H/O colonoscopy No pertinent past surgical history Family History Father No problems noted. Mother HTN (hypertension) Social History Housing: House Alcohol intake: current Alcohol intake frequency: a few times a month Patient Tobacco Use Status: Never used Tobacco e-Cigarette/Vaping Use: Never Used Second Hand Smoke Exposure: No service: No Current occupational status: retired Cognitive needs: No Hearing needs: No Vision needs: Yes Review of Systems Const Denies weakness ENT Denies dizziness Card Denies chest pain, Denies chest pain with activity, Denies syncope, Denies rapid heart rate, Denies pedal edema, Denies edema, Denies leg edema, Denies lightheadedness, Denies palpitations, Denies dyspnea, Denies dyspnea on exertion and Denies orthopnea Resp Denies cough, Denies dyspnea and Denies dyspnea on exertion GI Denies hematochezia and Denies change in stool character Musc Denies abnormal gait, Denies muscle cramps, Denies muscle weakness, Denies numbness, Denies radiating pain into limb and Denies tingling Neuro Denies abnormal gait, Denies dizziness, Denies syncope, Denies numbness, Denies tingling and Denies weakness Endo Denies palpitations Physical Exam Vital Signs: Last Vital Signs Pulse 77 10/16/23 14:07 BP 150/60 H 10/16/23 14:07 BMI result Body Mass Index 40.0 Const General: comfortable and no acute distress Orientation/consciousness: patient oriented x3 HEENT Other: Unremarkable Head: Yes normal to inspection Neck Neck: Yes normal visual inspection Chest Chest palpation & inspection: normal inspection of the chest Resp Auscultation: clear to auscultation bilaterally Cardio Palpation: normal PMI Heart sounds: S1 normal heart sound present, S2 normal heart sound present, no gallops, no murmurs and no rubs GI Palpation (GI): Soft to palpation Back/Spine/Pelvis Other: unremarkable Skin General skin exam: no rashes or lesions noted Neuro General: patient oriented x3 Extrem General: Yes normal to inspection Psych Mental Status: mental status grossly normal Assessment & Plan Assessment & Plan (1) Paroxysmal A-fib: Code(s): I48.0 - Paroxysmal atrial fibrillation (2) Atrial arrhythmia: Code(s): I49.8 - Other specified cardiac arrhythmias (3) HTN (hypertension): Code(s): I10 - Essential (primary) hypertension Plan Cardiac studies reviewed. In the recent EKG from the emergency room, atrial fibrillation rapid rate 137/Min with nonspecific ST-T changes. Echocardiogram with LVEF of 65-70%; no significant valvular issues. Holter shows sinus rhythm with an average rate of 77/Min and occasional PACs with short runs of SVT. Thirty day monitor shows underlying sinus rhythm but no other significant findings. Overall, she has paroxysmal atrial fibrillation possibly related to obesity. We can start on beta-blockers. Continue Eliquis. Home sleep study is still pending. If positive for SHARIF, then that will need to be treated. If any other concerns, she will contact us. Follow-up in 6 months. Total time spent including review of hospital records, counseling, documentation, coordination of care-32 minutes. Medications: New metoprolol succinate ER (Toprol XL) 50 mg PO DAILY 90 tabs 3RF Changed From apixaban (Eliquis) 5 mg PO BID 30 days 60 tabs 0RF To apixaban (Eliquis) 5 mg PO BID 180 tabs 3RF 90 days Coding Level of Care Code Est Pt Level 4 (45757) Diagnoses Paroxysmal A-fib I48.0 Atrial arrhythmia I49.8 HTN (hypertension) I10
[2023-10-16 14:07] VITALS: BP 150/60; PULSE 77; BMI 40.0
== END 2023-10-16 14:37 | disposition home or self-care (01) ==
PROVIDERS: PCP Internal Medicine; Visit Provider Internal Medicine
DX: I48.0 Paroxysmal atrial fibrillation (principal); I49.8 Other specified cardiac arrhythmias; I10 Essential (primary) hypertension
CPT/HCPCS: 99214

== ENCOUNTER → 2023-10-16 13:50 | Outpatient (BNVA) | payer OTHER, SELFPAY | PROVIDERS: PCP Internal Medicine; Visit Provider Internal Medicine ==

== ENCOUNTER 2023-10-20 05:25 | Emergency (ER) | payer OTHER, SELFPAY ==
[2023-10-20 05:27] VITALS: BP 155/57; PULSE 70; RESP 16; TEMP 36.4; O2SAT 97; BMI 38.4
--- NOTE | 2023-10-20 06:05 | PC.NURSE ---
RN spoke with MD Johnson regarding the pt and her presentation. Both parties agreeable to start the patient with PO Benadryl 50mg to assist with itching and hives. If pt symptoms progress/get worse staff will bring her back.
[2023-10-20] MEDS: diphenhydrAMINE HCL 25 MG CAPSULE 50 MG PO (06:29)
[2023-10-20 06:31] VITALS: BP 160/58; PULSE 67; RESP 18; TEMP 36.3; O2SAT 97
--- NOTE | 2023-10-20 09:02 | ED_ITS ---
HPI - General Adult General Chief complaint: Allergic Reaction Stated complaint: possible allergic reaction to new meds Time Seen by Provider: 10/20/23 08:52 History of Present Illness HPI narrative: The patient is a 73-year-old woman who has recently been found to have paroxysmal atrial fibrillation. She was started on apixaban 2 weeks ago. She was started on metoprolol 3 days ago. This morning the patient was awoken from sleep by a sense of itchiness. She had a lot of hives over much of her body. No shortness of breath. She was scratching her arms a lot. She called a friend and they came to the hospital. She was given a dose of diphenhydramine here prior to my evaluation and her symptoms have almost completely resolved. No chest pain or shortness of breath. No change in voice. No difficulty swallowing. No sense of oral swelling. Related Data Home Medications Medication Instructions Recorded Confirmed fluticasone propionate 50 1 spray intranasal BID PRN 08/09/20 10/16/23 mcg/actuation nasal congestion spray,suspension glucosamine sulfate 750 mg tablet 750 mg PO ONCE 08/09/20 10/16/23 multivitamin 1 tab PO DAILY 08/09/20 10/16/23 nystatin 100,000 unit/gram topical 1 appl topical BID-TID 02/26/23 10/16/23 powder Previous Rx's Medication Instructions Recorded lisinopril 10 mg tablet 10 mg PO DAILY #90 tabs 11/07/22 ketoconazole 2 % topical cream 1 appl topical DAILY #60 grams 02/25/23 lorazepam 0.5 mg tablet 0.5 mg PO DAILY PRN anxiety #10 08/01/23 tabs Farxiga 5 mg tablet (dapagliflozin 5 mg PO DAILY #90 tabs 09/03/23 propanediol) amlodipine 5 mg tablet 5 mg PO DAILY #90 tabs 10/02/23 apixaban 5 mg tablet (Eliquis) 5 mg PO BID 90 days #180 tabs 10/16/23 metoprolol succinate 50 mg 50 mg PO DAILY #90 tabs 10/16/23 tablet,extended release 24 hr (Toprol XL) Allergies Allergy/AdvReac Type Severity Reaction Status Date / Time erythromycin base Allergy Unknown upset Verified 10/20/23 05:27 stomach nausea methylprednisolone AdvReac Intermediate rapid Verified 10/20/23 05:27 heart rate Review of Systems Review of Systems: Yes all other systems are reviewed and are negative [facility] Past Medical History Onset Date is defined in the Problem List Problems that require an onset date and time if occurred within 24 hrs of arrival to the ED Aortic Dissection and Rupture; Neurologic impairment; Cardiopulmonary Arrest; Endotracheal Intubation; Insertion or Replacement of Mechanical Circulatory Assist Device Medical History Chest pain Hyperlipemia Annual physical exam Mammogram normal DJD (degenerative joint disease), lumbar Anxiety Overweight HTN (hypertension) Surgical History H/O colonoscopy No pertinent past surgical history Family History Family History Father No problems noted. Mother HTN (hypertension) Social History Social History Housing: House Alcohol intake: current Alcohol intake frequency: a few times a month Patient Tobacco Use Status: Never used Tobacco e-Cigarette/Vaping Use: Never Used Second Hand Smoke Exposure: No Advance Directives: No service: No Current occupational status: retired Cognitive needs: No Hearing needs: No Vision needs: Yes Physical Exam ED Vital Signs: Vital Signs - 24 hr 10/20/23 05:27 10/20/23 06:31 Temperature 97.6 F 97.3 F Pulse Rate 70 67 Respiratory Rate 16 18 Blood Pressure 155/57 H 160/58 H Pulse Oximetry 97 97 Oxygen Delivery Method Room Air Room Air BMI result Body Mass Index 38.4 Const Other: The patient is awake, alert, pleasant, cooperative. The patient does not appear in any distress. HENMT Other: No lesions to the skin of the face. The posterior pharynx is normal. No intraoral swelling. Eyes Other: Pupils are round equal, conjunctivae are clear, extraocular movements intact Neck Other: No stridor. Neck: Yes supple and Yes no JVD Resp Other: No wheezing Effort & Inspection: normal respiratory effort Auscultation: clear to auscultation bilaterally Cardio Rate: regular rate Rhythm: regular rhythm Heart sounds: S1 normal heart sound present and S2 normal heart sound present Skin Other: There are some faint remnants of urticaria on the arms. Otherwise skin shows no lesions. Neuro Other: Awake, alert, nontoxic, pleasant, grossly neurologically intact. Extrem Other: No peripheral edema. Medications Administered Discontinued Medications Generic Name Dose Route Start Last Admin Trade Name Mary PRN Reason Stop Dose Admin Diphenhydramine HCl 50 mg 10/20/23 06:05 10/20/23 06:29 Diphenhydramine Hcl 25 Mg Capsule PO 10/20/23 06:06 50 mg ONCE ONE Administration Medical Decision Making Medical Decision Making MDM Narrative: The patient presents with an urticarial allergic reaction that started spontaneously during her sleep this morning. At the time that I saw her her symptoms were almost completely resolved following a dose of diphenhydramine. The patient can not think of any unusual exposure or food or new product that might have caused an allergic reaction. She is concerned that metoprolol started 3 days ago could be the cause of an allergic reaction. The patient certainly looks well enough for outpatient management. On exam today I do not detect any indication of atrial fibrillation. Her heart is regular and plethysmography on pulse oximetry looks very regular. Her heart rate is in the 60s. I think it would be reasonable for her to hold her metoprolol for a few days and then restart it if she has no ongoing allergic symptoms. If allergic symptoms return after restarting metoprolol but that would be more diagnostic. She may use Benadryl or Zyrtec on an as-needed basis for mild recurrence of symptoms. She should follow up with her PCP. Discharge Plan Discharge Clinical Impression: Allergic reaction Patient Disposition: Home, Self-Care Instructions: General Allergic Reaction (ED) Additional Instructions: You seemed to have had an allergic reaction this morning. Fortunately it seems to have gotten better after a single dose of Benadryl (di phenhydramine). It is not clear what caused this reaction. Since you just started the metoprolol I think it would be reasonable for you to stop taking metoprolol for the next 2 or 3 days. If you have no ongoing hives or other symptoms of allergic reaction after 2 or 3 days I think it would be reasonable to restart the metoprolol to see if you have another similar reaction. If you do have recurrence of hives you may use [id number] diphenhydramine (Benadryl). An alternative to Benadryl would be cetirizine (Zyrtec). This is a less sedating antihistamine. Please contact your regular doctor to discuss this episode further and call for advice as needed. If at any point you feel you are significantly worse please return to the emergency department. Prescriptions: No Action lisinopril 10 mg tablet 10 mg PO DAILY Qty: 90 3RF lorazepam 0.5 mg tablet 0.5 mg PO DAILY PRN (Reason: anxiety) Qty: 10 0RF amlodipine 5 mg tablet 5 mg PO DAILY Qty: 90 1RF fluticasone propionate 50 mcg/actuation spray,suspension 1 spray intranasal BID PRN (Reason: congestion) glucosamine sulfate 750 mg tablet 750 mg PO ONCE Rx Instructions: administer with meals multivitamin Tablet 1 tab PO DAILY ketoconazole 2 % cream 1 appl topical DAILY Qty: 60 1RF Farxiga 5 mg tablet 5 mg PO DAILY Qty: 90 2RF nystatin 100,000 unit/gram powder 1 appl topical BID-TID metoprolol succinate [Toprol XL] 50 mg tablet extended release 24 hr 50 mg PO DAILY Qty: 90 3RF Eliquis 5 mg tablet 5 mg PO BID 90 Days Qty: 180 3RF Referrals: Viola Mack MD [Primary Care Provider] - (Allergic reaction)
[2023-10-20 09:10] VITALS: BP 134/56; PULSE 59; RESP 15; TEMP 36.3; O2SAT 100
== END 2023-10-20 09:20 | disposition home or self-care (01) ==
PROVIDERS: Emergency Provider Emergency Medicine; PCP Internal Medicine
DX: T78.40XA Allergy, unspecified, initial encounter (principal); X58.XXXA Exposure to other specified factors, initial encounter; L29.9 Pruritus, unspecified; I48.0 Paroxysmal atrial fibrillation; Z79.01 Long term (current) use of anticoagulants; I10 Essential (primary) hypertension
CPT/HCPCS: 99283

== ENCOUNTER 2023-10-29 11:03 | Outpatient (AMB) | payer OTHER, SELFPAY ==
[2023-10-29 11:55] VITALS: BP 120/70; PULSE 73; O2SAT 99; BMI 39.1
--- NOTE | 2023-10-29 11:55 | MHC.PC.OV ---
Vital Signs 10/29/23 11:55 Height 5 ft 9 in Weight 265 lb BMI 39.1 BP 120/70 Blood Pressure Location Lt brachial Position Sitting Pulse 73 Pulse Source Pulse Oximeter Pulse Oximetry (%) 99 Oxygen Delivery Method Room Air Intake Visit Reasons: New med review Intake Note: Pt is here today for a follow up visit. Allergies erythromycin base Allergy (Unknown, Verified 10/29/23 11:57) upset stomach nausea metoprolol Allergy (Verified 10/29/23 11:57) Rash methylprednisolone Adverse Reaction (Intermediate, Verified 10/29/23 11:57) rapid heart rate Medication List - Last Reconciled 10/29/23 by Viola Mack MD amlodipine 5 mg PO DAILY apixaban (Eliquis) 5 mg PO BID 90 days atenolol 50 mg PO DAILY fluticasone propionate 50 mcg/actuation 1 spray intranasal BID PRN glucosamine sulfate 750 mg PO ONCE ketoconazole 2% 1 appl topical DAILY lisinopril 10 mg PO DAILY lorazepam 0.5 mg PO DAILY PRN multivitamin 1 tab PO DAILY nystatin 1 appl topical BID-TID Tobacco use date assessed: 10/29/23 Fall risk assessment: No Falls in past year Last assessed Fall Risk: 10/29/23 Dental Screening Dental Screen Date: 10/29/23 Did you have a dental visit in the last 12 months?: Yes Did you have a dental problem in the last 6 months where you did not have access to dental care?: No Was dental information given to patient?: Patient has dentist HPI New med review HPI Details Patient presents for the follow-up of ER visit for new onset AFib with rapid ventricular response 2 weeks ago. patient was started on metoprolol and Eliquis but developed a rash and metoprolol was discontinued last week. Patient denies any recurrent palpitation chest pain. Patient also stopped taking Farxiga last week. She was taking it for 2 weeks before developing rash. the rash resolved. Patient was told to start taking atenolol in 4 days. [facility] Medical History Chest pain Hyperlipemia Annual physical exam Mammogram normal DJD (degenerative joint disease), lumbar Anxiety Overweight HTN (hypertension) Surgical History H/O colonoscopy No pertinent past surgical history Family History Father No problems noted. Mother HTN (hypertension) Social History Housing: House Alcohol intake: current Alcohol intake frequency: a few times a month Patient Tobacco Use Status: Never used Tobacco e-Cigarette/Vaping Use: Never Used Second Hand Smoke Exposure: No service: No Current occupational status: retired Cognitive needs: No Hearing needs: No Vision needs: Yes Questionnaire PHQ-9 Over the last 2 weeks, how often have you been bothered by any of the following problems? 1. Little interest or pleasure in doing things: not at all 2. Feeling down, depressed, or hopeless: not at all 3. Trouble falling or staying asleep, or sleeping too much: not at all 4. Feeling tired or having little energy: not at all 5. Poor appetite or overeating: not at all 6. Feeling bad about yourself - or that you are a failure or have let yourself or your family down: not at all 7. Trouble concentrating on things, such as reading the newspaper or watching television: not at all 8. Moving or speaking so slowly that other people could have noticed. Or the opposite - being so fidgety or restless that you have been moving around a lot more than usual: not at all 9. Thoughts that you would be better off or of hurting yourself in some way: not at all Total score: 0 Depression Screening Interpretation: Negative Depression Screening Done: Yes Source: Developed by Drs. Gopi Baker, Stefani Doyle, Alfonso Carey and colleagues, with an educational jeancarlos from [employer]. Thrive Questionnaire Date Thrive assessed: 10/29/23 I am a: Patient What is your living situation today?: I have a steady place to live Within the past 12 months, did the food you bought not last and you didn't have the money to get more?: Never true Within the past 12 months, did you worry whether your food would run out before you got money to buy more?: Never true Do you have trouble paying for medicines?: No Do you have trouble getting transportation to medical appointments?: No Do you have trouble paying your heating and electricity bill?: No Do you have trouble taking care of your child, family member or friend?: No Do you have trouble with day-to-day activities such as bathing, preparing meals, shopping, managing finances, etc.?: No Are you currently unemployed and looking for a job?: No Are you interested in more education?: No Please select the resources that you would like help with: None THRIVE Score: 0 AUDIT C Alcohol Use Questionnaire (AUDIT-C) 1. How often do you have a drink containing alcohol?: Never 3. How often do you have six or more drinks on one occasion?: Never Total Score: 0 HANNA-7 AMB Questionnaire HANNA-7 Date HANNA - 7 assessed: 10/22/22 Source: Developed by Drs. Gopi Baker, Stefani Doyle, Alfonso Carey and colleagues, with an educational jeancarlos from [employer]. Review of Systems Const All systems reviewed & are unremarkable except as noted in HPI and below Reports no additional complaints Eyes Reports no additional complaints ENT Reports no additional complaints Card Reports no additional complaints Resp Reports no additional complaints GI Reports no additional complaints Physical exam (Primary Care) Vital Signs: Last Vital Signs Pulse 73 10/29/23 11:55 BP 142/70 H 10/29/23 11:55 Pulse Ox 99 10/29/23 11:55 Oxygen Delivery Method Room Air 10/29/23 11:55 BMI result Body Mass Index 39.1 Tobacco/Smoking Status: Tobacco use Status Tobacco use date assessed 10/29/23 10/29/23 12:00 Patient Tobacco Use Status Never used Tobacco 10/29/23 12:00 e-Cigarette/Vaping Use Never Used 10/29/23 12:00 PHQ-9: PHQ-9 Score PHQ-9: Total score 0 10/29/23 12:00 Depression Screening Interpretation: Negative Thrive Assessment: Date of Thrive Assessment Date Thrive assessed 10/29/23 10/29/23 12:00 Const General: no acute distress HENMT Throat: Yes posterior oropharynx normal Neck Neck: Yes supple Resp Effort & Inspection: normal respiratory effort Auscultation: clear to auscultation bilaterally Cardio Rhythm: regular rhythm Heart sounds: S1 normal heart sound present and S2 normal heart sound present GI Inspection: Yes normal to inspection Palpation (GI): Soft to palpation Assessment and Plan Assessment & Plan (1) CKD (chronic kidney disease) stage 3, GFR 30-59 ml/min: Comment: started Farxiga 09/28 but stopped on 10/20/23 because of rash Code(s): N18.30 - Chronic kidney disease, stage 3 unspecified Plan: Monitor renal function and avoid NSAID (2) HTN (hypertension): Code(s): I10 - Essential (primary) hypertension Plan: Continue current medications (3) Atrial fibrillation: Comment: 10/11/23 ER visit, started on Eliquis Code(s): I48.91 - Unspecified atrial fibrillation Plan: Continue Eliquis, patient will be starting atenolol on 4 days and follow-up with Cardiology Coding Level of Care Code Est Pt Level 4 (12245) Diagnoses CKD (chronic kidney disease) stage 3, GFR 30-59 ml/min N18.30 HTN (hypertension) I10 Atrial fibrillation I48.91
== END 2023-10-29 12:31 | disposition home or self-care (01) ==
PROVIDERS: PCP Internal Medicine; Visit Provider Internal Medicine
DX: I12.9 Hypertensive chronic kidney disease with stage 1 through stage 4 chronic kidney disease, or unspecified chronic kidney disease (principal); N18.30 Chronic kidney disease, stage 3 unspecified; I48.91 Unspecified atrial fibrillation
CPT/HCPCS: 99214

== ENCOUNTER → 2023-11-26 10:46 | Outpatient (REF) | payer OTHER, SELFPAY ==
[2023-11-26 12:12] LABS: Alanine Aminotransferase 15 U/L (0-31); Albumin Level 4.1 g/dL (3.5-5.0); Alkaline Phosphatase 88 U/L (39-117); Anion Gap 12 (12-20); Aspartate Amino Transferase 15 U/L (5-31); Bilirubin Total 0.4 mg/dL (0.0-1.0); Blood Urea Nitrogen 22 mg/dL (9-16); Calcium 9.6 mg/dL (8.4-10.2); Carbon Dioxide 24 mmol/L (22-29); Chloride 106 mmol/L (96-108); Cholesterol 208 mg/dL (<200); Estimated Glomerular Filt Rate 46; Glucose Fasting 85 mg/dL (60-99); HDL Cholesterol 53 mg/dL (>40); LDL Cholesterol Calculated 131 mg/dL (<100); Sodium 138 mmol/L (135-145); Total Protein 7.3 g/dL (6.5-8.0); Triglycerides 122 mg/dL (<150)
[2023-11-26 12:34] LABS: TSH reflex Free T4 3.01 uIU/mL (0.32-4.0)
[2023-11-26 13:10] LABS: Creatinine Urine 64.25 mg/dL
== END ==
LOC: HO.SL 10:46
PROVIDERS: Absent Provider Internal Medicine; PCP Internal Medicine; Visit Provider Internal Medicine
DX: G47.33 Obstructive sleep apnea (adult) (pediatric) (principal); I49.8 Other specified cardiac arrhythmias; I12.9 Hypertensive chronic kidney disease with stage 1 through stage 4 chronic kidney disease, or unspecified chronic kidney disease; N18.30 Chronic kidney disease, stage 3 unspecified; E78.5 Hyperlipidemia, unspecified
CPT/HCPCS: 36415; 80053; 80061; 82043; 82570; 84443; 95806

== ENCOUNTER → 2023-11-26 11:03 | Outpatient (BNV) | payer OTHER, SELFPAY | PROVIDERS: Absent Provider Internal Medicine; PCP Internal Medicine; Visit Provider Internal Medicine | DX: G47.33 Obstructive sleep apnea (adult) (pediatric) (principal) | CPT/HCPCS: 95806 ==

== ENCOUNTER 2023-11-28 15:22 | Outpatient (AMB) | payer OTHER, SELFPAY ==
--- NOTE | 2023-11-28 15:29 | AM.OFFWIN_ITS ---
Intake Vital Signs 11/28/23 15:30 Height 5 ft 9 in Weight 265 lb BMI 39.1 BP 132/70 Blood Pressure Location Rt brachial Position Sitting Pulse 62 Pulse Source Pulse Oximeter Temp 97.9 F Temp Source Temporal Artery Scan Pulse Oximetry (%) 95 Oxygen Delivery Method Room Air Intake Visit Reasons: EP Water retention~Bilateral leg Intake Note: pt is here for water retention in bilateral leg Patient Tobacco Use Status: Never used Tobacco Allergies erythromycin base Allergy (Unknown, Verified 11/28/23 15:30) upset stomach nausea metoprolol Allergy (Verified 11/28/23 15:30) Rash methylprednisolone Adverse Reaction (Intermediate, Verified 11/28/23 15:30) rapid heart rate Do you need a note to return to daycare/school/sports/work: No HPI HPI Comments History of Present Illness Details 73 y/o female patient who presents to [facility] in clinic with c/o chronic bilateral peripheral edema. This is a chronic issue - h/o CKD and Afib. Denies SOB, CP, wheezing or difficulty breathing. Pt is morbidly obese. [facility] Medical History Chest pain Hyperlipemia Annual physical exam Mammogram normal DJD (degenerative joint disease), lumbar Anxiety Overweight HTN (hypertension) Surgical History H/O colonoscopy No pertinent past surgical history Family History Father No problems noted. Mother HTN (hypertension) Social History Housing: House Alcohol intake: current Alcohol intake frequency: a few times a month Patient Tobacco Use Status: Never used Tobacco e-Cigarette/Vaping Use: Never Used Second Hand Smoke Exposure: No service: No Current occupational status: retired Cognitive needs: No Hearing needs: No Vision needs: Yes Review of Systems Const All systems reviewed & are unremarkable except as noted in HPI and below Physical Exam Vital Signs: Last Vital Signs Temp 97.9 F 11/28/23 15:30 Pulse 62 11/28/23 15:30 BP 132/70 11/28/23 15:30 Pulse Ox 95 11/28/23 15:30 Oxygen Delivery Method Room Air 11/28/23 15:30 BMI result Body Mass Index 39.1 Const General: no acute distress Nutritional Appearance: obese morbidly obese Orientation/consciousness: patient oriented x3 Resp Effort & Inspection: normal respiratory effort and able to speak in complete sentences Auscultation: clear to auscultation bilaterally Skin General skin exam: dry skin and erythema Neuro General: patient oriented x3 Extrem General: Yes normal gait Right lower extremity: full ROM and lower leg Details: erythema and pitting edema Left lower extremity: full ROM and lower leg Details: erythema and pitting edema Assessment & Plan Assessment & Plan (1) Peripheral edema: Code(s): R60.0 - Localized edema Plan: - Pt does have Compression Stockings at home - advised to wear them as instructed - F/U with PCP for further management. - Lasix for 7 days. Medications: New furosemide 20 mg PO DAILY 7 tabs 0RF 7 days R60.0 - Localized edema Coding Level of Care Code Est Pt Level 3 (32106) Diagnoses Peripheral edema R60.0 Time Spent (min) 15
[2023-11-28 15:30] VITALS: BP 132/70; PULSE 62; TEMP 36.6; O2SAT 95; BMI 39.1
== END 2023-11-28 16:07 | disposition home or self-care (01) ==
PROVIDERS: PCP Internal Medicine; Visit Provider Nurse Practitioner Family
DX: R60.0 Localized edema (principal)
CPT/HCPCS: 99213

== ENCOUNTER 2023-12-04 10:47 | Outpatient (AMB) | payer OTHER, SELFPAY ==
[2023-12-04 10:58] VITALS: BP 138/72; PULSE 61; O2SAT 100; BMI 39.9
--- NOTE | 2023-12-04 10:58 | A.OFFPC_ITS ---
Vital Signs 12/04/23 10:58 Height 5 ft 9 in Weight 270 lb BMI 39.9 BP 138/72 Blood Pressure Location Lt brachial Position Sitting Pulse 61 Pulse Source Pulse Oximeter Pulse Oximetry (%) 100 Oxygen Delivery Method Room Air Intake Visit Reasons: 3 month follow up Intake Note: Pt is her today for 3 months follow up visit on labs. Allergies erythromycin base Allergy (Unknown, Verified 12/04/23 11:00) upset stomach nausea metoprolol Allergy (Verified 12/04/23 11:00) Rash methylprednisolone Adverse Reaction (Intermediate, Verified 12/04/23 11:00) rapid heart rate Tobacco use date assessed: 10/29/23 HPI 3 month follow up HPI Details Patient presents for the follow-up on hypertension paroxysmal AFib chronic kidney disease stage 3. Patient reports worsening lower extremities swelling and feeling of heaviness at the end of the day. She denies PND orthopnea dyspnea on exertion. Patient is planning to get a cortisone injection for chronic lower back pain. [facility] Medical History Chest pain Hyperlipemia Annual physical exam Mammogram normal DJD (degenerative joint disease), lumbar Anxiety Overweight HTN (hypertension) Surgical History H/O colonoscopy No pertinent past surgical history Family History Father No problems noted. Mother HTN (hypertension) Social History Housing: House Alcohol intake: current Alcohol intake frequency: a few times a month Patient Tobacco Use Status: Never used Tobacco e-Cigarette/Vaping Use: Never Used Second Hand Smoke Exposure: No service: No Current occupational status: retired Cognitive needs: No Hearing needs: No Vision needs: Yes Questionnaire Thrive Questionnaire Date Thrive assessed: 10/29/23 HANNA-7 AMB Questionnaire HANNA-7 Date HANNA - 7 assessed: 10/22/22 Source: Developed by Drs. Gopi Baker, Stefani Doyle, Alfonso Carey and colleagues, with an educational jeancarlos from [employer] Review of Systems Const All systems reviewed & are unremarkable except as noted in HPI and below Reports no additional complaints Eyes Reports no additional complaints ENT Reports no additional complaints Card Reports no additional complaints Resp Reports no additional complaints GI Reports no additional complaints Physical exam (Primary Care) Vital Signs: Last Vital Signs Pulse 61 12/04/23 10:58 BP 138/72 12/04/23 10:58 Pulse Ox 100 12/04/23 10:58 Oxygen Delivery Method Room Air 12/04/23 10:58 BMI result Body Mass Index 39.9 Tobacco/Smoking Status: Tobacco use Status Tobacco use date assessed 10/29/23 12/04/23 11:07 Patient Tobacco Use Status Never used Tobacco 12/04/23 11:07 e-Cigarette/Vaping Use Never Used 12/04/23 11:07 Thrive Assessment: Date of Thrive Assessment Date Thrive assessed 10/29/23 12/04/23 11:07 Const General: no acute distress HENMT Mouth: Normal oral and palatal mucosa present Eyes General: appearance normal, both eyes and all related structures Neck Neck: Yes no lymphadenopathy and Yes supple Resp Effort & Inspection: normal respiratory effort Auscultation: clear to auscultation bilaterally Cardio Rhythm: regular rhythm Heart sounds: S1 normal heart sound present and S2 normal heart sound present GI Inspection: Yes normal to inspection Palpation (GI): Soft to palpation Percussion: Yes normal to percussion Auscultation: normal bowel sounds Extrem Other: 2+ pitting edema bilaterally Assessment and Plan Assessment & Plan (1) Atrial fibrillation: Comment: 10/11/23 ER visit, started on Eliquis, metoprolol ? allergic reaction, rash Code(s): I48.91 - Unspecified atrial fibrillation Plan: cont Eliquis, and atenolol for rate control (2) Morbid obesity: Code(s): E66.01 - Morbid (severe) obesity due to excess calories Plan: Increase physical activity weight loss discussed with the pt (3) CKD (chronic kidney disease) stage 3, GFR 30-59 ml/min: Comment: started Farxiga 09/28 but stopped on 10/20/23 because of rash Code(s): N18.30 - Chronic kidney disease, stage 3 unspecified Plan: Patient will restart Farxiga and will monitor for any recurrent rash (4) HTN (hypertension): Code(s): I10 - Essential (primary) hypertension Plan: Continue current medications (5) Edema: Comment: Chronic lower extremities edema due to venous stasis Code(s): R60.9 - Edema, unspecified Plan: Start furosemide 20 mg every other day for 2 weeks. Patient was advised to elevate lower extremities follow low-sodium diet and wear compression knee-highs Coding Level of Care Code Est Pt Level 4 (12603) Diagnoses Atrial fibrillation I48.91 Morbid obesity E66.01 CKD (chronic kidney disease) stage 3, GFR 30-59 ml/min N18.30 HTN (hypertension) I10 Edema R60.9
== END 2023-12-04 11:56 | disposition home or self-care (01) ==
PROVIDERS: PCP Internal Medicine; Visit Provider Internal Medicine
DX: I12.9 Hypertensive chronic kidney disease with stage 1 through stage 4 chronic kidney disease, or unspecified chronic kidney disease (principal); E66.01 Morbid (severe) obesity due to excess calories; N18.30 Chronic kidney disease, stage 3 unspecified; Z68.39 Body mass index [BMI] 39.0-39.9, adult; I48.91 Unspecified atrial fibrillation; R60.9 Edema, unspecified
CPT/HCPCS: 99214

== ENCOUNTER 2023-12-10 13:39 | Outpatient (AMB) | payer OTHER, SELFPAY ==
[2023-12-10 13:42] VITALS: BP 130/62; PULSE 62; BMI 40.8
--- NOTE | 2023-12-10 13:42 | A.OFFVIS_ITS ---
Intake Vital Signs 12/10/23 13:42 Height 5 ft 9 in Weight 276 lb 7.355 oz BMI 40.8 BP 130/62 Blood Pressure Location Lt brachial Position Sitting Pulse 62 Pulse Source Pulse Oximeter Intake Visit Reasons: s/p slleep study pt r/s to nov Cutter Grinder Required: No Allergies erythromycin base Allergy (Unknown, Verified 12/10/23 13:45) upset stomach nausea metoprolol Allergy (Verified 12/10/23 13:45) Rash methylprednisolone Adverse Reaction (Intermediate, Verified 12/10/23 13:45) rapid heart rate Medication List - Last Reconciled 12/10/23 by Daniella Murphy, SENIOR [employer]UX SYSTEMS ENGINEER-C amlodipine 5 mg PO DAILY apixaban (Eliquis) 5 mg PO BID 90 days desonide 0.05% topical fluticasone propionate 50 mcg/actuation 1 spray intranasal BID PRN furosemide 20 mg PO DAILY 7 days glucosamine sulfate 750 mg PO ONCE lisinopril 10 mg PO DAILY lorazepam 0.5 mg PO DAILY PRN metoprolol succinate ER 50 mg PO DAILY multivitamin 1 tab PO DAILY HPI s/p slleep study pt r/s to nov HPI Details Radha is a 73-year-old female with past medical history of hypertension, hyperlipidemia, heart palpitations, newer finding of paroxysmal atrial fibrillation who presents for follow-up after recent Holter monitor and sleep study. Today she reports she has been feeling well since her last visit in October. She has had no recurrent heart palpitations. She denies any bleeding issues with Eliquis use. No shortness of breath, chest discomfort, PND, orthopnea or edema. No lightheadedness, presyncope, syncope, falls. She ambulates with a cane. She is taking her meds as directed. [facility] Medical History Chest pain Hyperlipemia Annual physical exam Mammogram normal DJD (degenerative joint disease), lumbar Anxiety Overweight HTN (hypertension) Surgical History H/O colonoscopy No pertinent past surgical history Family History Father No problems noted. Mother HTN (hypertension) Social History Housing: House Alcohol intake: current Alcohol intake frequency: a few times a month Patient Tobacco Use Status: Never used Tobacco e-Cigarette/Vaping Use: Never Used Second Hand Smoke Exposure: No service: No Current occupational status: retired Cognitive needs: No Hearing needs: No Vision needs: Yes Review of Systems Const All systems reviewed & are unremarkable except as noted in HPI and below ENT Denies dizziness Card Denies chest pain, Denies chest pain at rest, Denies chest pain with activity, Denies rapid heart rate, Denies pedal edema, Denies edema, Denies leg edema, Denies lightheadedness, Denies palpitations, Denies dyspnea, Denies dyspnea on exertion and Denies orthopnea Resp Denies cough, Denies dyspnea and Denies dyspnea on exertion GI Denies hematochezia and Denies change in stool character Musc Denies abnormal gait, Denies limited range of motion, Denies muscle cramps, Denies muscle weakness, Denies numbness, Denies radiating pain into limb, Denies stiffness and Denies tingling Neuro Denies abnormal gait, Denies dizziness, Denies numbness and Denies tingling Endo Denies palpitations Physical Exam Vital Signs: Last Vital Signs Pulse 62 12/10/23 13:42 BP 130/62 12/10/23 13:42 BMI result Body Mass Index 40.8 Const Other: morbidly obese, ambulates with cane General: cooperative, healthy appearing, comfortable and no acute distress Orientation/consciousness: patient oriented x3 Neck Neck: Yes normal visual inspection and Yes no JVD Resp Effort & Inspection: normal respiratory effort Auscultation: clear to auscultation bilaterally, no crackles, no rales, no rhonchi and no wheezes Cardio Jugular venous distension: no JVD Rate: regular rate Rhythm: regular rhythm Heart sounds: S1 normal heart sound present, S2 normal heart sound present, no murmurs and no rubs Neuro General: patient oriented x3 Extrem General: Yes normal to inspection, No no pedal edema and No calf tenderness Psych Appearance: grossly normal Mental Status: mental status grossly normal Speech and movement: Normal speech and movement present Assessment & Plan Assessment & Plan (1) Atrial fibrillation: Comment: 10/11/23 ER visit, started on Eliquis, metoprolol ? allergic reaction, rash Code(s): I48.91 - Unspecified atrial fibrillation Plan: History of heart palpitations over the last few years. Newer finding paroxysmal atrial fibrillation. She was put on metoprolol for heart rate control. She was put on Eliquis for anticoagulation. She is tolerating both, no bleeding issues reported. Echocardiogram done 10/02/2022 showed normal EF, impaired relaxation, normal valves Dopplers. Cardiac event monitor done 08/13/2023 for 30 days showed sinus rhythm with average heart rate 71, rare ventricular ectopy, no sustained arrhythmias. EKG done 10/11/2023 confirmed atrial fibrillation with rapid ventricular response, rate 137. She was in the emergency room at that time for symptoms of palpitations. That is when she was started on the metoprolol and Eliquis. She denies any heart palpitations since starting metoprolol. She did have a sleep study which shows mild obstructive sleep apnea. Since she has atrial fibrillation will refer her to pulmonology for evaluation and treatment of sleep apnea. She tells me she will not wear a mask but may consider nasal pillows. She is interested in having spinal injection for low back pain. She will need to hold her anticoagulation for 3 days prior to that procedure. CHADSVASc score 3. Stroke risk while off anticoagulation reviewed with her. She states understanding and may proceed. Will fax this note to her provider Dr. Marrufo at [facility] in [place]. Cardiology follow-up in our office 6 months, sooner if needed (2) Edema: Comment: Chronic lower extremities edema due to venous stasis Code(s): R60.9 - Edema, unspecified Plan: Patient has bilateral lower leg edema. She says this is newer for her. She has already been seen by urgent care and was given a low dose diuretic. She has furosemide 20 mg to be taken once every other day. She says her primary care has given her the okay to proceed. She does not appear to have signs of fluid overload elsewhere. (3) Sleep apnea: Code(s): G47.30 - Sleep apnea, unspecified Plan: Recent sleep study showing mild obstructive sleep apnea. It can be treated with conservative measures however she does have newer finding of atrial fibrillation and she has obesity. Will refer her to pulmonology for evaluation/ treatment of sleep apnea (4) HTN (hypertension): Code(s): I10 - Essential (primary) hypertension Plan: Well controlled at present time. No medication changes made. Plan Time spent on chart review, documentation, interview and assessment Orders: Referrals Pulmonary Medicine Referral G47.30 - Sleep apnea, unspecified, I48.91 - Unspecified atrial fibrillation Coding Level of Care Code Est Pt Level 4 (19410) Diagnoses Atrial fibrillation I48.91 Edema R60.9 Sleep apnea G47.30 HTN (hypertension) I10 Time Spent (min) 28
== END 2023-12-10 14:22 | disposition home or self-care (01) ==
PROVIDERS: PCP Internal Medicine; Visit Provider Nurse Practitioner Family
DX: I48.91 Unspecified atrial fibrillation (principal); R60.9 Edema, unspecified; G47.30 Sleep apnea, unspecified; I10 Essential (primary) hypertension
CPT/HCPCS: 99214

== ENCOUNTER → 2023-12-10 13:39 | Outpatient (BNVA) | payer OTHER, SELFPAY | PROVIDERS: PCP Internal Medicine; Visit Provider Nurse Practitioner Family ==

== ENCOUNTER 2024-01-08 14:48 | Outpatient (AMB) | payer OTHER, SELFPAY ==
[2024-01-08 15:10] VITALS: BP 140/68; PULSE 59; O2SAT 99; BMI 42.0
--- NOTE | 2024-01-08 15:10 | MHC.OFFVIS ---
Intake Vital Signs 01/08/24 15:10 Height 5 ft 9 in Weight 284 lb 6.341 oz BMI 42.0 BP 140/68 H Blood Pressure Location Lt brachial Position Sitting Pulse 59 Pulse Source Pulse Oximeter Pulse Oximetry (%) 99 Oxygen Delivery Method Room Air Intake Visit Reasons: Obstructive sleep apnea Intake Note: pt is here as a new patient to go over sleep study that was done, she states she feels fine. Commercial Analyst Required: No Allergies erythromycin base Allergy (Unknown, Verified 01/08/24 15:58) upset stomach nausea metoprolol Allergy (Verified 01/08/24 15:58) Rash methylprednisolone Adverse Reaction (Intermediate, Verified 01/08/24 15:58) rapid heart rate Medication List - Last Reconciled 01/08/24 by Mely Mederos MD amlodipine 5 mg PO DAILY apixaban (Eliquis) 5 mg PO BID 90 days atenolol 25 mg PO DAILY desonide 0.05% topical fluticasone propionate 50 mcg/actuation 1 spray intranasal BID PRN furosemide 20 mg PO Q OTHER DAY PRN glucosamine sulfate 750 mg PO ONCE lisinopril 10 mg PO DAILY lorazepam 0.5 mg PO DAILY PRN multivitamin 1 tab PO DAILY Do you need a note to return to daycare/school/sports/work: No HPI Obstructive sleep apnea HPI Details 73 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 The patient is grossly obese. Her obesity is mainly truncal and in the lower extremities. She states that she has been overweight throughout her adult life, and the bulky lower extremities runs in her family. It seems that she has had chronic lymphedema of the lower extremities with stasis edema. She denies any snoring, but she sleeps by herself so does not know it exactly. I asked her if she wakes up with a dry mouth and she says no. She claims that she sleeps about 7 hours every night solid and wakes up only once to go to the bathroom. She denies any excessive daytime sleepiness. She does use a mouth guard, to avoid grinding of the teeth. Since July 2023 she has had intermittent but rare feeling of palpitations lasting for a few minutes at a time. She had a flare up after she was treated with a Medrol Dosepak for pain in the lower extremity. This the caused a bout of palpitations and she thinks it was due to using the Medrol. She had a 30 day Holter monitor and was found to have paroxysmal bouts of fibrillation. After she was started on atenolol 25 mg daily she had no more palpitations. However she has been started on Eliquis 5 mg b.i.d. as long-term anticoagulant.. The sleep study was performed mainly because of being overweight and because of paroxysmal atrial fibrillation. As noted above the patient herself denies any particular symptoms of sleep apnea. Habitually she has always slept on her back, She has a male cat has a fitness and wellness coordinator who sleeps with her. [facility] Medical History (Updated 01/08/24 @ 16:22 by Mely Mederos MD) SHARIF (obstructive sleep apnea) Retrognathia Morbid obesity Chest pain Hyperlipemia Annual physical exam Mammogram normal DJD (degenerative joint disease), lumbar Anxiety Overweight HTN (hypertension) Surgical History H/O colonoscopy No pertinent past surgical history Family History Father No problems noted. Mother HTN (hypertension) Social History Housing: House Alcohol intake: current Alcohol intake frequency: a few times a month Patient Tobacco Use Status: Never used Tobacco e-Cigarette/Vaping Use: Never Used Second Hand Smoke Exposure: No service: No Current occupational status: retired Cognitive needs: No Hearing needs: No Vision needs: Yes Review of Systems Const All systems reviewed & are unremarkable except as noted in HPI and below Eyes Reports no additional complaints ENT Reports nasal congestion (Mild intermittent) Card Denies chest pain, Reports irregular heart rhythm (History of but not now) and Reports leg edema (Chronic) Resp Reports no additional complaints GI Reports no additional complaints Reports no additional complaints Musc Reports no additional complaints Skin/Breast Reports system reviewed and no additional complaints, except as documented Neuro Reports no additional complaints Psych Reports no additional complaints Endo Reports no additional complaints Cedrick/Lymph Reports no additional complaints Physical Exam Vital Signs: Last Vital Signs Pulse 59 01/08/24 15:10 BP 140/68 H 01/08/24 15:10 Pulse Ox 99 01/08/24 15:10 Oxygen Delivery Method Room Air 01/08/24 15:10 BMI result Body Mass Index 42.0 Const General: comfortable, no acute distress, alert and awake Orientation/consciousness: patient oriented x3 HEENT Head: Yes normal to inspection General nose exam: No nasal polyps present and No nasal discharge present Face and sinus: Yes sinuses nontender Mouth: oropharynx abnormals (Slightly crowded, Mallampati class 3) Teeth and gingiva: other (She does have mild retroganthia of the lower jaw) Throat: Yes posterior oropharynx normal Eyes General: appearance normal, both eyes and all related structures Neck Neck: Yes normal visual inspection, Yes no lymphadenopathy, Yes trachea midline, Yes no JVD and Yes other (Neck size 15-1/2 inch) Thyroid: Thyroid normal Chest Chest palpation & inspection: normal inspection of the chest, normal palpation of entire chest wall and no tenderness Resp Effort & Inspection: normal respiratory effort Auscultation: clear to auscultation bilaterally, no crackles and no wheezes Cardio Palpation: normal PMI Rate: regular rate Rhythm: regular rhythm Heart sounds: no gallops and no murmurs Peripheral pulses: Peripheral pulses 2+ throughout GI Palpation (GI): Soft to palpation, nontender, No hepatosplenomegaly present and no masses Auscultation: normal bowel sounds Back/Spine/Pelvis Thoracic/Lumbar Spine: thoracic and lumbar spine normal to inspection and thoraco-lumbar ROM limited Skin General skin exam: no rashes or lesions noted Neuro General: patient oriented x3 and no focal motor deficits Cranial nerves: Yes CN's II-XII intact bilaterally Extrem General: Yes normal to inspection, Yes no calf tenderness and Yes edema (She has chronic bulky legs. With significant degree of stasis edema of the) Psych Appearance: grossly normal and well kempt Speech and movement: Normal speech and movement present Results Reviewed Results Reviewed: Home-based sleep study on 11/28/2023 is reviewed. Total sleep time AHI 9.3. All the sleep was in supine position Snoring for 30% of the sleep time. Mild degree of nocturnal hypoxemia, with average O2 sat 92% lowest O2 sat 84% and O2 sat below 88% for 8 minutes Assessment & Plan Assessment & Plan (1) Morbid obesity: Comment: BMI= 42.0 PATIENT IS THE DEFINITELY OVERWEIGHT. OBESITY IS MAINLY TRUNCAL AND OF THE LOWER EXTREMITIES. SHE HAS CHRONIC LYMPHEDEMA AND STASIS EDEMA OF THE LOWER EXTREMITIES Code(s): E66.01 - Morbid (severe) obesity due to excess calories Plan: MAY USE FUROSEMIDE 20 MG ONCE A DAY P.R.N. (2) Retrognathia: Comment: SHE HAS A NOTICEABLE RETROGANTHIA OF THE LOWER JAW, SHE WAS NOT AWARE OF THIS, BUT HAS BEEN USING A RETAINER DEVICE PERHAPS TO PREVENT GRINDING Code(s): M26.19 - Other specified anomalies of jaw-cranial base relationship Plan: I EXPLAINED TO HER THAT RETROGANTHIA MAY BE CAUSING SOME DEGREE OF SLEEP APNEA. IT IS OKAY TO KEEP ON USING THE MOUTHPIECE( RETAINER ) (3) SHARIF (obstructive sleep apnea): Comment: SHE DOES HAVE OBSTRUCTIVE SLEEP APNEA WHICH IS MILD, TOTAL SLEEP TIME AHI 9.3. WITH SNORING FOR 30% OF SLEEP TIME, AND WITH VERY MILD DEGREE OF NOCTURNAL HYPOXEMIA ALL THE SLEEP WAS IN SUPINE POSITION. Code(s): G47.33 - Obstructive sleep apnea (adult) (pediatric) Plan: I EXPLAINED TO HER THE RELATIONSHIP OF OBSTRUCTIVE SLEEP APNEA TO PAROXYSMAL ATRIAL FIBRILLATION A CAUSATIVE FACTOR. IT MAY VERY WELL BE DUE TORETROGANTHIA . TREATMENT OPTIONS DISCUSSED. I DISCUSSED ABOUT USE OF CPAP., IN DETAIL SHE TELLS ME THAT SHE DOES NOT WANT TO USE CPAP SHE WOULD RATHER TRY TO USE THE CONSERVATIVE MEASURES WHICH ARE FOLLOWS: 1 TRY TO LOSE WEIGHT AT LEAST FOR 10-15 LB. POSITION THERAPY : TRY TO SLEEP IN LATERAL POSITION AND MAY HAVE TO USE A LARGE PILLOW ARE A WEDGE IN THE MIDDLE OF THE BED . WILL RECHECK AFTER 3 MONTHS AND DISCUSS ABOUT THE TREATMENT OPTIONS AGAIN (4) Atrial fibrillation: Comment: 10/11/23 ER visit, started on Eliquis, metoprolol ? allergic reaction, rash Code(s): I48.91 - Unspecified atrial fibrillation Plan: PATIENT IS BEING FOLLOWED BY CARDIOLOGY FOR HER PAF . AND IS ON ANTICOAGULATION. (5) Edema: Comment: Chronic lower extremities edema due to venous stasis AND POSSIBLE ASSOCIATED LYMPHEDEMA. Code(s): R60.9 - Edema, unspecified Plan: USE DIURETIC AGENT, FUROSEMIDE 20 MG P.R.N.. Medications: Changed From furosemide 20 mg PO Q OTHER DAY 30 tabs 1RF R60.0 - Localized edema To furosemide 20 mg PO Q OTHER DAY PRN R60.0 - Localized edema Coding Level of Care Code New Pt Level 4 (35536) Diagnoses Morbid obesity E66.01 Retrognathia M26.19 SHARIF (obstructive sleep apnea) G47.33 Atrial fibrillation I48.91 Edema R60.9
== END 2024-01-08 15:48 | disposition home or self-care (01) ==
PROVIDERS: PCP Internal Medicine; Referring Provider Internal Medicine; Visit Provider Internal Medicine
DX: G47.33 Obstructive sleep apnea (adult) (pediatric) (principal); E66.01 Morbid (severe) obesity due to excess calories; M26.19 Other specified anomalies of jaw-cranial base relationship; I48.91 Unspecified atrial fibrillation; R60.9 Edema, unspecified
CPT/HCPCS: 99214

== ENCOUNTER → 2024-01-08 14:48 | Outpatient (BNVA) | payer OTHER, SELFPAY | PROVIDERS: PCP Internal Medicine; Visit Provider Internal Medicine ==

== ENCOUNTER 2024-01-09 13:30 | Outpatient (AMB) | payer OTHER, SELFPAY ==
[2024-01-09 13:52] VITALS: BP 120/70; PULSE 61; TEMP 36.2; O2SAT 99; BMI 41.9
--- NOTE | 2024-01-09 13:52 | MHC.OFFWIV ---
Intake Vital Signs 01/09/24 13:52 Height 5 ft 9 in Weight 284 lb BMI 41.9 BP 120/70 Blood Pressure Location Lt brachial Position Sitting Pulse 61 Pulse Source Pulse Oximeter Temp 97.1 F Temp Source Temporal Artery Scan Pulse Oximetry (%) 99 Oxygen Delivery Method Room Air Intake Visit Reasons: EP kidney stone? (lobby) Intake Note: pt is here today for kidney stones yesterday Patient Tobacco Use Status: Never used Tobacco Allergies erythromycin base Allergy (Unknown, Verified 01/09/24 14:01) upset stomach nausea metoprolol Allergy (Verified 01/09/24 14:01) Rash methylprednisolone Adverse Reaction (Intermediate, Verified 01/09/24 14:01) rapid heart rate Do you need a note to return to daycare/school/sports/work: No HPI HPI Comments History of Present Illness Details 73 y/o female patient presents to walk in clinic with c/o right sided lower back pain since this morning. Pt does have chronic lower back pain which she has been getting Steroid injection every 3 months. Pt reports receiving one Saturday. Pt is worried this pain might be Kidney Stone. [facility] Medical History (Updated 01/08/24 @ 16:22 by Mely Mederos MD) SHARIF (obstructive sleep apnea) Retrognathia Morbid obesity Chest pain Hyperlipemia Annual physical exam Mammogram normal DJD (degenerative joint disease), lumbar Anxiety Overweight HTN (hypertension) Surgical History H/O colonoscopy No pertinent past surgical history Family History Father No problems noted. Mother HTN (hypertension) Social History Housing: House Alcohol intake: current Alcohol intake frequency: a few times a month Patient Tobacco Use Status: Never used Tobacco e-Cigarette/Vaping Use: Never Used Second Hand Smoke Exposure: No service: No Current occupational status: retired Cognitive needs: No Hearing needs: No Vision needs: Yes Review of Systems Const All systems reviewed & are unremarkable except as noted in HPI and below Physical Exam Vital Signs: Last Vital Signs Temp 97.1 F 01/09/24 13:52 Pulse 61 01/09/24 13:52 BP 120/70 01/09/24 13:52 Pulse Ox 99 01/09/24 13:52 Oxygen Delivery Method Room Air 01/09/24 13:52 BMI result Body Mass Index 41.9 Results AMB Urinalysis, Automated UA Leukoctes 0 Ulises/uL Last Edit by Matteo Moser MA on 01/09/24 14:30 UA Nitrite Negative Last Edit by Matteo Moser MA on 01/09/24 14:30 UA Urobilinogen 0.2 mg/dL Last Edit by Matteo Moser MA on 01/09/24 14:30 UA Protein 0 mg/dL Last Edit by Matteo Moser MA on 01/09/24 14:30 UA pH 6.0 Last Edit by Matteo Moser MA on 01/09/24 14:30 UA Blood 0 Walter/uL Last Edit by Matteo Moser MA on 01/09/24 14:30 UA Specific [place] 1.010 Last Edit by Matteo Moser MA on 01/09/24 14:30 UA Ketone Negative Last Edit by Matteo Moser MA on 01/09/24 14:30 UA Bilirubin 0 mg/dL Last Edit by Matteo Moser MA on 01/09/24 14:30 UA Glucose 0 mg/dL Last Edit by Matteo Moser MA on 01/09/24 14:30 Assessment & Plan Assessment & Plan (1) Right flank pain: Code(s): R10.9 - Unspecified abdominal pain Plan: - Continue f/u with Ortho as scheduled for Steroids shot. - Urine PCOT Rapid negative - acetaminophen for pain relief. Coding Level of Care Code Est Pt Level 3 (09652) Diagnoses Right flank pain R10.9 Time Spent (min) 15
== END 2024-01-09 16:52 | disposition home or self-care (01) ==
PROVIDERS: PCP Internal Medicine; Visit Provider Nurse Practitioner Family
DX: R10.9 Unspecified abdominal pain (principal)
CPT/HCPCS: 99213

== ENCOUNTER 2024-03-03 11:11 | Outpatient (AMB) | payer OTHER, SELFPAY ==
[2024-03-03 11:16] VITALS: BP 128/64; PULSE 62; O2SAT 96; BMI 39.4
--- NOTE | 2024-03-03 11:16 | A.OFFPC_ITS ---
Vital Signs 03/03/24 11:16 Height 5 ft 9 in Weight 267 lb BMI 39.4 BP 128/64 Blood Pressure Location Rt brachial Position Sitting Pulse 62 Pulse Source Pulse Oximeter Pulse Oximetry (%) 96 Oxygen Delivery Method Room Air Intake Visit Reasons: 3 month follow up Intake Note: Pt is here today for 3 months follow up visit. Allergies erythromycin base Allergy (Unknown, Verified 03/03/24 11:22) upset stomach nausea metoprolol Allergy (Verified 03/03/24 11:22) Rash doxycycline Adverse Reaction (Intermediate, Verified 03/03/24 11:47) Abdominal Pain methylprednisolone Adverse Reaction (Intermediate, Verified 03/03/24 11:22) rapid heart rate Medication List - Last Reconciled 03/03/24 by Viola Mack MD amlodipine 5 mg PO DAILY apixaban (Eliquis) 5 mg PO BID 90 days atenolol 25 mg PO DAILY desonide 0.05% topical fluticasone propionate 50 mcg/actuation 1 spray intranasal BID PRN furosemide 20 mg PO Q OTHER DAY PRN glucosamine sulfate 750 mg PO ONCE lisinopril 10 mg PO DAILY lorazepam 0.5 mg PO DAILY PRN multivitamin 1 tab PO DAILY Tobacco use date assessed: 03/03/24 Fall risk assessment: No Falls in past year Last assessed Fall Risk: 03/03/24 Dental Screening Dental Screen Date: 10/29/23 HPI 3 month follow up HPI Details Pt presents for HTN, CKD 3, A fib, stable on meds. PFSH Medical History SHARIF (obstructive sleep apnea) Retrognathia Morbid obesity Chest pain Hyperlipemia Annual physical exam Mammogram normal DJD (degenerative joint disease), lumbar Anxiety Overweight HTN (hypertension) Surgical History H/O colonoscopy No pertinent past surgical history Family History Father No problems noted. Mother HTN (hypertension) Social History Housing: House Alcohol intake: current Alcohol intake frequency: a few times a month Patient Tobacco Use Status: Never used Tobacco e-Cigarette/Vaping Use: Never Used Second Hand Smoke Exposure: No service: No Current occupational status: retired Cognitive needs: No Hearing needs: No Vision needs: Yes Questionnaire Thrive Questionnaire Date Thrive assessed: 10/29/23 AUDIT C Alcohol Use Questionnaire (AUDIT-C) 1. How often do you have a drink containing alcohol?: Monthly or less 2. How many drinks containing alcohol do you have on a typical day when you are drinking?: 1 or 2 3. How often do you have six or more drinks on one occasion?: Never Total Score: 1 HANNA-7 AMB Questionnaire HANNA-7 Date HANNA - 7 assessed: 10/22/22 Feeling nervous, anxious, or on edge: 1 = Several days Not being able to stop or control worryin = Not at all Worrying too much about different things: 1 = Several days Trouble relaxin = Several days Being so restless that it is hard to sit still: 0 = Not at all Becoming easily annoyed or irritable: 0 = Not at all Feeling afraid as if something awful might happen: 0 = Not at all Total HANNA-7 score (0-4 normal; 5-9 mild; 10-14 moderate; 15-21 severe): 3 Source: Developed by Drs. Gopi Baker, Stefani Doyle, Alfonso Carey and colleagues, with an educational jeancarlos from [employer]. Review of Systems Const All systems reviewed & are unremarkable except as noted in HPI and below Eyes Reports no additional complaints ENT Reports no additional complaints Card Reports no additional complaints Resp Reports no additional complaints GI Reports no additional complaints Reports no additional complaints Physical exam (Primary Care) Vital Signs: Last Vital Signs Pulse 62 03/03/24 11:16 BP 128/64 03/03/24 11:16 Pulse Ox 96 03/03/24 11:16 Oxygen Delivery Method Room Air 03/03/24 11:16 BMI result Body Mass Index 39.4 Tobacco/Smoking Status: Tobacco use Status Tobacco use date assessed 03/03/24 03/03/24 11:23 Patient Tobacco Use Status Never used Tobacco 03/03/24 11:23 e-Cigarette/Vaping Use Never Used 03/03/24 11:18 Thrive Assessment: Date of Thrive Assessment Date Thrive assessed 10/29/23 03/03/24 11:18 Const General: no acute distress HENMT Head: Yes normal to inspection Eyes General: appearance normal, both eyes and all related structures Neck Neck: Yes no lymphadenopathy and Yes supple Resp Effort & Inspection: normal respiratory effort Auscultation: clear to auscultation bilaterally Cardio Rhythm: regular rhythm Heart sounds: S1 normal heart sound present and S2 normal heart sound present GI Inspection: Yes normal to inspection Palpation (GI): Soft to palpation Percussion: Yes normal to percussion Auscultation: normal bowel sounds Assessment and Plan Assessment & Plan (1) Postmenopausal: Code(s): Z78.0 - Asymptomatic menopausal state Plan: Check DEXA (2) HTN (hypertension): Code(s): I10 - Essential (primary) hypertension Plan: Continue current medications (3) CKD (chronic kidney disease) stage 3, GFR 30-59 ml/min: Comment: started Farxiga 09/28 but stopped on 10/20/23 because of rash, patient's police detective did not recommend SGTP2 inhibitor Code(s): N18.30 - Chronic kidney disease, stage 3 unspecified Plan: Monitor renal function avoid nephrotoxins follow-up with nephrology (4) Anemia: Comment: Normal iron studies 10/29 Code(s): D64.9 - Anemia, unspecified Plan: Monitor CBC (5) Vitamin D deficiency: Code(s): E55.9 - Vitamin D deficiency, unspecified Plan: Continue vitamin-D supplement (6) Atrial fibrillation: Comment: 10/11/23 ER visit, started on Eliquis, metoprolol ? allergic reaction, rash Code(s): I48.91 - Unspecified atrial fibrillation Plan: Continue Eliquis and atenolol follow-up with Cardiology Orders: Orders XR DEXA axial skeleton Today D64.9 - Anemia, unspecified, E55.9 - Vitamin D deficiency, unspecified, I10 - Essential (primary) hypertension, N18.30 - Chronic kidney disease, stage 3 unspecified, Z78.0 - Asymptomatic menopausal state Lipid Panel 6 Months D64.9 - Anemia, unspecified, E55.9 - Vitamin D deficiency, unspecified, I10 - Essential (primary) hypertension, N18.30 - Chronic kidney disease, stage 3 unspecified Comprehensive [place]. Panel Fast 6 Months D64.9 - Anemia, unspecified, E55.9 - Vitamin D deficiency, unspecified, I10 - Essential (primary) hypertension, N18.30 - Chronic kidney disease, stage 3 unspecified Complete Blood Count Auto Diff 6 Months D64.9 - Anemia, unspecified, E55.9 - Vitamin D deficiency, unspecified, I10 - Essential (primary) hypertension, N18.30 - Chronic kidney disease, stage 3 unspecified Vitamin D 25-OH Total 6 Months D64.9 - Anemia, unspecified, E55.9 - Vitamin D deficiency, unspecified, I10 - Essential (primary) hypertension, N18.30 - Chronic kidney disease, stage 3 unspecified Coding Level of Care Code Est Pt Level 4 (54826) Diagnoses Postmenopausal Z78.0 HTN (hypertension) I10 CKD (chronic kidney disease) stage 3, GFR 30-59 ml/min N18.30 Anemia D64.9 Vitamin D deficiency E55.9 Atrial fibrillation I48.91
== END 2024-03-03 11:57 | disposition home or self-care (01) ==
PROVIDERS: PCP Internal Medicine; Visit Provider Internal Medicine
DX: I12.9 Hypertensive chronic kidney disease with stage 1 through stage 4 chronic kidney disease, or unspecified chronic kidney disease (principal); I48.91 Unspecified atrial fibrillation; N18.30 Chronic kidney disease, stage 3 unspecified; Z78.0 Asymptomatic menopausal state; D64.9 Anemia, unspecified; E55.9 Vitamin D deficiency, unspecified
CPT/HCPCS: 99214

== ENCOUNTER 2024-04-01 10:38 | Outpatient (REF) | payer OTHER, SELFPAY ==
--- NOTE | ~2024-04-01 | MM_ITS ---
EXAMINATION: BONE DENSITOMETRY CLINICAL INDICATION: Asymptomatic menopausal state. COMPARISON: This is the patient's baseline examination. TECHNIQUE: Using a Advaxis DXA System (software version: 13.1) manufactured by [employer], dual-energy x-ray absorptiometry was performed of the lumbar spine and left hip. The images are of good technical quality. Summary results are attached. FINDINGS: AP SPINE L1-L2 (excluding L3 and L4): The data of L1-L4 has been changed to exclude the L3 and L4 vertebral bodies, because degenerative sclerosis at these levels may cause overestimation of lumbar spine density. BMD 1.418 g/cm2, Z-score 2.7, T-score 2.1, normal. LEFT FEMUR, NECK: BMD 1.040 g/cm2, Z-score 1.1, T-score 0.0, normal. LEFT FEMUR, TOTAL: BMD 1.054 g/cm2, Z-score 1.1, T-score 0.4, normal. IDENTIFIED RISK FACTORS: Renal disease. Secondary osteoporosis (early menopause). HISTORY OF FRACTURE: None listed. MEDICATIONS: Calcium supplement and/or multivitamin. Vitamin D. MM/XR DEXA axial skeleton IMPRESSION: 1. DIAGNOSIS: Normal bone density based on the lowest T-score value of 0.0 in the femoral neck applying World Health Organization criteria. 2. 10-YEAR FRACTURE RISK PREDICTION, FRAX: According to the guidelines, FRAX calculation should only be performed on patients in the osteopenia bone density category.?Therefore, FRAX was not performed on this patient.? 3. Treatment Recommendations: NOF guidelines recommend consideration for treatment in postmenopausal women and men age 50 and older presenting with the following: -A hip or vertebral (clinical or morphometric) fracture. -T-score less than or equal to -2.5 at the femoral neck or spine after appropriate evaluation to exclude secondary causes. -Low bone mass at the hip or spine and a 10-year fracture probability by FRAX of greater than or equal to 3% for hip fracture or greater than or equal to 20% for major osteoporotic fracture based on the [place] adapted WHO algorithm. 4. Other Recommendations: All treatment decisions require clinical judgment and consideration of individual patient factors, including patient preferences, comorbidities, previous drug use, risk factors not captured in the FRAX model (e.g. frailty, falls, vitamin D deficiency, increased bone turnover, interval significant decline in bone density) and possible under or overestimation of fracture risk by FRAX. FUTURE SCAN RECOMMENDATION: People with diagnosed cases of osteoporosis or at high risk for fracture should have regular bone mineral density tests. For patients eligible for Medicare, routine testing is allowed once every 2 years. The testing frequency can be increased to one year for patients who have rapidly progressing disease, those who are receiving or discontinuing medical therapy to restore bone mass, or have additional risk factors.
== END 2024-04-01 10:39 | disposition home or self-care (01) ==
LOC: HO.MAMMO 10:38
PROVIDERS: PCP Internal Medicine; Visit Provider Internal Medicine
DX: Z13.820 Encounter for screening for osteoporosis (principal); Z78.0 Asymptomatic menopausal state; E55.9 Vitamin D deficiency, unspecified
CPT/HCPCS: 77080

== ENCOUNTER 2024-06-11 13:09 | Outpatient (AMB) | payer OTHER, SELFPAY ==
[2024-06-11 13:12] VITALS: BP 140/62; PULSE 61; BMI 39.7
--- NOTE | 2024-06-11 13:12 | A.OFFVIS_ITS ---
Vital Signs 06/11/24 13:12 Height 5 ft 9 in Weight 268 lb 15.423 oz BMI 39.7 BP 140/62 H Blood Pressure Location Lt brachial Position Sitting Pulse 61 Pulse Source Pulse Oximeter Intake Visit Reasons: 6 mth f/up Design Editor Required: No Allergies erythromycin base Allergy (Unknown, Verified 06/11/24 13:14) upset stomach nausea metoprolol Allergy (Verified 06/11/24 13:14) Rash doxycycline Adverse Reaction (Intermediate, Verified 06/11/24 13:14) Abdominal Pain methylprednisolone Adverse Reaction (Intermediate, Verified 06/11/24 13:14) rapid heart rate Medication List - Last Reconciled 06/11/24 by Daniella Murphy NP-C amlodipine 5 mg PO DAILY apixaban (Eliquis) 5 mg PO BID 90 days atenolol 50 mg PO DAILY desonide 0.05% topical fluticasone propionate 50 mcg/actuation 1 spray intranasal BID PRN furosemide 20 mg PO Q OTHER DAY glucosamine sulfate 750 mg PO ONCE lisinopril 10 mg PO DAILY lorazepam 0.5 mg PO DAILY PRN multivitamin 1 tab PO DAILY HPI HPI 6 mth f/up: Details: Radha is a 73-year-old female with past medical history of obesity, hypertension, hyperlipidemia, paoxysmal atrial fibrillation, mild obstructive sleep apnea who presents for follow-up Today she reports she has been feeling well since her last visit in December. She has had no recurrent heart palpitations. She denies any bleeding issues with Eliquis use. No shortness of breath, chest discomfort, PND, orthopnea or edema. No lightheadedness, presyncope, syncope, falls. She ambulates with a cane. She continues to have issues with bilateral knee pain and low back pain. She is having a colonoscopy in a few weeks. She is taking her meds as directed. COUNT INCLUDES THE [facility] Medical History SHARIF (obstructive sleep apnea) Retrognathia Morbid obesity Chest pain Hyperlipemia Annual physical exam Mammogram normal DJD (degenerative joint disease), lumbar Anxiety Overweight HTN (hypertension) Surgical History H/O colonoscopy No pertinent past surgical history Family History Father No problems noted. Mother HTN (hypertension) Social History Housing: House Alcohol intake: current Alcohol intake frequency: a few times a month Patient Tobacco Use Status: Never used Tobacco e-Cigarette/Vaping Use: Never Used Second Hand Smoke Exposure: No service: No Current occupational status: retired Cognitive needs: No Hearing needs: No Vision needs: Yes Review of Systems Const All systems reviewed & are unremarkable except as noted in HPI and below ENT Denies dizziness Card Denies chest pain, Denies chest pain at rest, Denies chest pain with activity, Denies rapid heart rate, Denies pedal edema, Denies edema, Denies leg edema, Denies lightheadedness, Denies palpitations, Denies dyspnea, Denies dyspnea on exertion and Denies orthopnea Resp Denies cough, Denies dyspnea and Denies dyspnea on exertion GI Denies hematochezia and Denies change in stool character Musc Details: Uses cane, bilateral knee pain and low back pain Reports abnormal gait, Reports limited range of motion, Denies muscle cramps, Denies muscle weakness, Denies numbness, Denies radiating pain into limb, Denies stiffness and Denies tingling Neuro Reports abnormal gait, Denies dizziness, Denies numbness and Denies tingling Endo Denies palpitations Physical Exam Vital Signs: Last Vital Signs Pulse 61 06/11/24 13:12 BP 140/62 H 06/11/24 13:12 BMI result Body Mass Index 39.7 Const Other: morbidly obese, ambulates with cane General: cooperative, healthy appearing, comfortable and no acute distress Orientation/consciousness: patient oriented x3 Neck Neck: Yes normal visual inspection and Yes no JVD Resp Effort & Inspection: normal respiratory effort Auscultation: clear to auscultation bilaterally, no crackles, no rales, no rhonchi and no wheezes Cardio Jugular venous distension: no JVD Rate: regular rate Rhythm: regular rhythm Heart sounds: S1 normal heart sound present, S2 normal heart sound present, no murmurs and no rubs Neuro General: patient oriented x3 Extrem General: Yes normal to inspection, No no pedal edema and No calf tenderness Psych Appearance: grossly normal Mental Status: mental status grossly normal Speech and movement: Normal speech and movement present Assessment & Plan Assessment & Plan (1) Atrial fibrillation: Comment: 10/11/23 ER visit, started on Eliquis, metoprolol ? allergic reaction, rash Code(s): I48.91 - Unspecified atrial fibrillation Category: Medical Plan: History of heart palpitations over the last few years. Newer finding paroxysmal atrial fibrillation: Echocardiogram had been done 10/02/2022 showed normal EF, impaired relaxation, normal valves Dopplers. Cardiac event monitor done 08/13/2023 for 30 days showed sinus rhythm with average heart rate 71, rare ventricular ectopy, no sustained arrhythmias. She was in the emergency room Oct 2023 for symptoms of palpitations and EKG confirmed atrial fibrillation with rapid ventricular response, rate 137. She was started on the metoprolol and Eliquis. She denies any heart palpitations since starting metoprolol. She did have report of a rash and it looks like she was taken off metoprolol and put on atenolol. She remains on Eliquis with no signs of bleeding. She had a sleep study which shows mild obstructive sleep apnea that is being managed with weight loss. She tells me she will not wear a mask. She is having a colonoscopy on 06/23. Her Eliquis can be held 48 hours prior to her procedure. Stroke risk while off anticoagulation reviewed. Pulse is very regular on examination today. No med changes made at this time. Cardiology follow-up in 6 months, sooner if needed. (2) Sleep apnea: Code(s): G47.30 - Sleep apnea, unspecified Category: Medical Plan: Recent sleep study showing mild obstructive sleep apnea. It can be treated with conservative measures however she does have newer finding of atrial fibrillation and she has obesity. She was referred pulmonology for evaluation/ treatment of sleep apnea. She tells me she will not be able to wear a mask. She is treating her sleep apnea with weight loss and trying to sleep on her side instead of her back. (3) HTN (hypertension): Code(s): I10 - Essential (primary) hypertension Category: Medical Plan: Controlled at present time. No medication changes made. Plan Time spent on chart review, documentation, interview and assessment Coding Level of Care Code Est Pt Level 4 (04075) Diagnoses Atrial fibrillation I48.91 Sleep apnea G47.30 HTN (hypertension) I10 Time Spent (min) 28
== END 2024-06-11 13:37 | disposition home or self-care (01) ==
PROVIDERS: PCP Internal Medicine; Visit Provider Nurse Practitioner Family
DX: I48.91 Unspecified atrial fibrillation (principal); G47.30 Sleep apnea, unspecified; I10 Essential (primary) hypertension
CPT/HCPCS: 99214

== ENCOUNTER → 2024-06-11 13:09 | Outpatient (BNVA) | payer OTHER, SELFPAY | PROVIDERS: PCP Internal Medicine; Visit Provider Nurse Practitioner Family ==

== ENCOUNTER 2024-06-23 09:53 | Day surgery (SDC) | payer OTHER, SELFPAY ==
--- NOTE | 2024-06-22 10:20 | P.CONAN_ITS ---
Documented by User: Anjali Gaviria NP 06/22/24 10:26 HPI - Anesthesia Eval Consult details Narrative: 73yo F for Colonoscopy Eliquis for afib [place] [facility] [place]. Stable at 06/2024 office visit and OK to hold eliquis for procedure. [facility] Active Problems Active Problems: All Active Problems Postmenopausal (Acute) SHARIF (obstructive sleep apnea) (Acute) Retrognathia (Acute) Morbid obesity (Acute) Sleep apnea (Acute) Edema (Acute) Atrial fibrillation (Acute) Cataract (Acute) Atrial arrhythmia (Acute) Palpitations (Acute) Colon cancer screening (Acute) Carotid artery bruit (Acute) Lightheadedness (Acute) Neck pain (Acute) Vitamin D deficiency (Acute) Anemia (Acute) H/O colonoscopy (Acute) Lower back pain (Acute) Balance disorder (Acute) Chest pain (Acute) Near syncope (Acute) CKD (chronic kidney disease) stage 3, GFR 30-59 ml/min (Acute) Bilateral headaches (Acute) Hyperlipemia (Acute) Annual physical exam (Acute) Ear pain, left (Acute) TMJ (sprain of temporomandibular joint) (Acute) Overweight (Acute) HTN (hypertension) (Acute) Acute sinusitis (Acute) Shingles rash (Acute) Bladder incontinence (Acute) Mammogram normal (Acute) DJD (degenerative joint disease), lumbar (Acute) Past Medical History Medical History SHARIF (obstructive sleep apnea) Retrognathia Atrial fibrillation Chest pain Morbid obesity CKD (chronic kidney disease) stage 3, GFR 30-59 ml/min Hyperlipemia Annual physical exam Mammogram normal DJD (degenerative joint disease), lumbar Anxiety Overweight HTN (hypertension) Family History Family History Father No problems noted. Mother HTN (hypertension) Surgical History Surgical History H/O bilateral cataract extraction H/O lithotripsy H/O colonoscopy Social History Social History Housing: House Alcohol intake: current Alcohol intake frequency: holidays/special occasions only Patient Tobacco Use Status: Never used Tobacco e-Cigarette/Vaping Use: Never Used Second Hand Smoke Exposure: No Use of substances other than those prescribed or required for medical reasons: No Are you DNR?: Yes Advance Directives: No Advance Directives Information Provided: Yes Recently lost weight without trying: No service: No Current occupational status: retired Cognitive needs: No Hearing needs: No Vision needs: Yes Meds Allergies Allergy/AdvReac Type Severity Reaction Status Date / Time metoprolol Allergy Severe Rash Verified 06/23/24 10:40 doxycycline AdvReac Intermediate Abdominal Verified 06/11/24 13:14 Pain methylprednisolone AdvReac Intermediate rapid Verified 06/11/24 13:14 heart rate erythromycin base AdvReac Unknown upset Verified 06/23/24 10:40 stomach nausea Home Medications ?Medication ?Instructions ?Recorded ?Confirmed ?Last Taken ?Type fluticasone propionate 50 1 spray intranasal BID PRN 08/09/20 06/11/24 Unknown History mcg/actuation nasal congestion spray,suspension glucosamine sulfate 750 mg tablet 750 mg PO ONCE 08/09/20 06/11/24 Unknown History multivitamin 1 tab PO DAILY 08/09/20 06/11/24 Unknown History desonide 0.05 % topical ointment topical 11/28/23 06/11/24 Unknown History Exam Pertinent Lab Results Pertinent Lab Results: Laboratory Tests 10/11/23 11/26/23 08:05 11:14 WBC 11.4 H Hgb 12.5 Hct 37.9 Plt Count 294 Sodium 138 Potassium 4.0 Chloride 106 Carbon Dioxide 24 BUN 22 H Creatinine 1.16 Narrative Narrative: EKG 10/2023 Vent. Rate : 072 BPM Atrial Rate : 072 BPM P-R Int : 170 ms QRS Dur : 064 ms QT Int : 356 ms P-R-T Axes : 087 012 065 degrees QTc Int : 389 ms Sinus rhythm with Premature atrial complexes Nonspecific ST and T wave abnormality Abnormal ECG When compared with ECG of 11-OCT-2023 07:43, Sinus rhythm has replaced Atrial fibrillation Vent. rate has decreased BY [address] no longer depressed in Inferior leads Holter 08/2023 * Total procedural length 30 days. Wear time 29.8 days. * Average ventricular rate 71/Min. Range 53 to 156/Min. * Rare supraventricular ectopy with very brief runs. * Rare ventricular ectopy. * No sustained arrhythmias. * No significant pauses or AV blocks. * Patient had activated the symptom button but no clear diary events. Assessment and Plan Assessment Anesthesia Assessment: Chart Reviewed Documented by User: Mira Edgar MD 06/23/24 13:18 [facility] Past Medical History Medical History SHARIF (obstructive sleep apnea) Retrognathia Atrial fibrillation Chest pain Morbid obesity CKD (chronic kidney disease) stage 3, GFR 30-59 ml/min Hyperlipemia Annual physical exam Mammogram normal DJD (degenerative joint disease), lumbar Anxiety Overweight HTN (hypertension) Family History Family History Father No problems noted. Mother HTN (hypertension) Family history of problems with anesthesia: No Surgical History Surgical History H/O bilateral cataract extraction H/O lithotripsy H/O colonoscopy Social History Social History Housing: House Alcohol intake: current Alcohol intake frequency: holidays/special occasions only Patient Tobacco Use Status: Never used Tobacco e-Cigarette/Vaping Use: Never Used Second Hand Smoke Exposure: No Use of substances other than those prescribed or required for medical reasons: No Are you DNR?: Yes Advance Directives: No Advance Directives Information Provided: Yes Recently lost weight without trying: No service: No Current occupational status: retired Cognitive needs: No Hearing needs: No Vision needs: Yes Meds Allergies Allergy/AdvReac Type Severity Reaction Status Date / Time metoprolol Allergy Severe Rash Verified 06/23/24 10:40 doxycycline AdvReac Intermediate Abdominal Verified 06/11/24 13:14 Pain methylprednisolone AdvReac Intermediate rapid Verified 06/11/24 13:14 heart rate erythromycin base AdvReac Unknown upset Verified 06/23/24 10:40 stomach nausea Home Medications ?Medication ?Instructions ?Recorded ?Confirmed ?Last Taken ?Type fluticasone propionate 50 1 spray intranasal BID PRN 08/09/20 06/11/24 Unknown History mcg/actuation nasal congestion spray,suspension glucosamine sulfate 750 mg tablet 750 mg PO ONCE 08/09/20 06/11/24 Unknown History multivitamin 1 tab PO DAILY 08/09/20 06/11/24 Unknown History desonide 0.05 % topical ointment topical 11/28/23 06/11/24 Unknown History Exam Airway Mallampati Class: II TM Dist: <=3cm Neck ROM: Limited Heart: rrr Lungs: cta Assessment and Plan Assessment Anesthesia Assessment: Anesthesia Plan Discussed Final Anesthetic Review Family History of Problems with Anesthesia: No NPO: Yes ASA Class: III Final Preanesthetic Review: No Changes in Pt Med Stat, Meds/Allgs Chart Rev iewed, Consent Obtained/Reviewed and Anes Risks/Benef Reviewed Patient Risk: Intermediate Procedure Risk: Low Anesthetic Plan Anesthetic Plan: MAC: Disposition: Standard PACU
[2024-06-23 10:42] VITALS: BMI 41.1
[2024-06-23 11:05] VITALS: BP 156/47; PULSE 53; RESP 16; TEMP 36.7
[2024-06-23] MEDS: Lactated Ringers 1,000 ML 100 ML IVCONT (11:16)
--- NOTE | 2024-06-23 12:48 | MHC.SHP ---
Pre-Procedural Eval Section A - 24 Hr Update-Section A only Date of Service: 06/23/24 Section B - Complete if H&P > 30 days Chief Complaint: Encounter for screening for malignant neoplasm of Details of Present Illness: Annual physical exam Anxiety Chest pain DJD (degenerative joint disease), lumbar HTN (hypertension) Hyperlipemia Mammogram normal Overweight Vaginal bleeding Surgical History H/O colonoscopy No pertinent past surgical history Allergies: Allergies Allergy/AdvReac Type Severity Reaction Status Date / Time metoprolol Allergy Severe Rash Verified 06/23/24 10:40 doxycycline AdvReac Intermediate Abdominal Verified 06/11/24 13:14 Pain methylprednisolone AdvReac Intermediate rapid Verified 06/11/24 13:14 heart rate erythromycin base AdvReac Unknown upset Verified 06/23/24 10:40 stomach nausea Review of Systems Review of Systems Comment: Ten point ROS negative Exam Exam Comment: Gen appear: No acute distress HEENT: no icterus Chest: No overt resp distress Abd: soft, nontender, nondistended Psych: Stable affect, answering questions appropriately Neuro: A/Ox3 noted to move all extremities spontaneously Ext: no peripheral edema Plan Diagnosis/Plan: Unchanged I have reviewed the history and physical and performed a pertinent physical examination on my patient. No changes have occurred unless specified. Time Spent With Patient Time: Total time managing care of this patient today ____ minutes.
--- NOTE | 2024-06-23 13:18 | P.OPN-COLO_ITS ---
Colonoscopy Operative Note Operative Note Date of Service: 06/23/24 Narrative: Procedure: Colonoscopy Indication: Screening Endoscopist: Morena Novak MD Anesthesia Provider: Rebeca Flynn CRNA Anesthesia type: MAC Instrument: Olympus [id number]-[id number] Consent: Indication, risks vs benefits, and alternatives were discussed with the patient who gave written informed consent to proceed. EKG, pulse, pulse oximetry and blood pressure were monitored throughout the procedure. Please see anesthesia flowsheet. Procedure: The patient was brought to the procedure room and placed in the left lateral decubitus position. IV medications were administered by the anesthesia provider in attendance. A digital rectal exam was performed which was normal. A distal attachment cap was affixed to the tip of the colonoscope which was then inserted through the anus and advanced through the colon to the cecum at 75 cm,and terminal ileum. Appendiceal orifice and ileocecal valve were identified. Mucosa was carefully examined under high definition white light as the instrument was slowly withdrawn in a retrograde panoramic fashion. Retroflexion was performed in rectum. The procedure was not difficult. There were no immediate obvious complications. The quality of the prep was BBPS: 2+3+2 = adequate Withdrawal time 7 minutes. Limitations: No limitations. Findings: Mucosa: Normal to cecum and terminal ileum. Protruding lesions: * Medium internal hemorrhoids without stigmata of recent bleeding. Excavated lesions: * Scattered diverticulosis of left sided colon. Impression: 1. Normal colon and terminal ileum mucosa 2. Diverticulosis 3. Internal hemorrhoids Recommendations: - repeat colonoscopy in 10 years for asymptomatic colorectal cancer screening if patient is still in good health
[2024-06-23 13:20] VITALS: BP 141/60; PULSE 56; RESP 16; TEMP 36.1; O2SAT 96
[2024-06-23 13:35] VITALS: BP 150/50; PULSE 55; RESP 16; TEMP 36.1; O2SAT 98
== END 2024-06-23 14:25 | disposition home or self-care (01) ==
PROVIDERS: PCP Internal Medicine; Visit Provider Internal Medicine
PROC: 0DJD8ZZ Inspection of Lower Intestinal Tract, Via Natural or Artificial Opening Endoscopic (ICD-10-PCS; CPT 45378; principal; 2024-06-23 11:40)
DX: Z12.11 Encounter for screening for malignant neoplasm of colon (principal); K57.30 Diverticulosis of large intestine without perforation or abscess without bleeding; K64.8 Other hemorrhoids; I10 Essential (primary) hypertension; G47.33 Obstructive sleep apnea (adult) (pediatric); I48.91 Unspecified atrial fibrillation; Z79.01 Long term (current) use of anticoagulants; Z79.899 Other long term (current) drug therapy
CPT/HCPCS: 45378; J2704

== ENCOUNTER → 2024-06-23 09:53 | Outpatient (BNV) | payer OTHER, SELFPAY | PROVIDERS: PCP Internal Medicine; Visit Provider Internal Medicine | DX: Z12.11 Encounter for screening for malignant neoplasm of colon (principal); K64.8 Other hemorrhoids; D12.4 Benign neoplasm of descending colon | CPT/HCPCS: 45378 ==

== ENCOUNTER 2024-07-20 11:32 | Outpatient (REF) | payer OTHER, SELFPAY ==
[2024-07-20 13:02] LABS: MANUAL DIFF FLAG NO
[2024-07-20 13:11] LABS: Basophils Percent Auto 0.3 % (0-2); Eosinophils Absolute Auto 0.1 X10*3/uL (0.0-0.4); Eosinophils Percent Auto 1.4 % (0-4); Hematocrit 37.6 % (37.0-47.0); Hemoglobin 12.5 g/dl (12.0-16.0); Imm Gran Abs Auto 0.03 X10*3/uL (0.00-0.03); Imm Gran Pct Auto 0.4 % (0.0-0.4); Lymphocytes Absolute Auto 1.2 X10*3/uL (1.2-4.9); Mean Corpuscular HGB Conc 33.2 g/dl (31.0-35.0); Mean Corpuscular Hemoglobin 31.8 pg (27.0-33.0); Mean Corpuscular Volume 95.7 fL (80.0-98.0); Mean Platelet Volume 9.8 fL (9.4-12.3); Monocytes Absolute Auto 0.7 X10*3/uL (0.1-1.2); Monocytes Percent Auto 8.7 % (2-11); Neutrophils Absolute Auto 5.9 x10*3/uL (2.0-8.3); Neutrophils Percent Auto 74.2 % (45-73); Platelet Count 270 X10*3/uL (160-400); Red Blood Count 3.93 X10*6/uL (4.20-5.50); Red Cell Distribution Width 15.2 % (11.0-16.0); White Blood Count 7.9 X10*3/uL (4.8-10.8)
[2024-07-20 13:44] LABS: Alanine Aminotransferase 17 U/L (0-31); Albumin Level 3.9 g/dL (3.5-5.0); Alkaline Phosphatase 70 U/L (39-117); Anion Gap 11 (12-20); Aspartate Amino Transferase 17 U/L (5-31); Bilirubin Total 0.4 mg/dL (0.0-1.0); Blood Urea Nitrogen 27 mg/dL (9-16); Calcium 9.3 mg/dL (8.4-10.2); Carbon Dioxide 25 mmol/L (22-29); Chloride 105 mmol/L (96-108); Estimated Glomerular Filt Rate 48; Glucose Fasting 82 mg/dL (60-99); Magnesium 2.3 mg/dL (1.6-2.6); Phosphorus 3.4 mg/dL (2.7-4.5); Potassium 4.2 mmol/L (3.3-5.1); Sodium 137 mmol/L (135-145); Total Protein 6.9 g/dL (6.5-8.0); Uric Acid 5.4 mg/dL (2.4-5.7)
[2024-07-20 13:47] LABS: Creatinine Urine 15.84 mg/dL; Total Protein Urine Random < 7 mg/dL (<12); Uric Acid Urine Random 5.8 mg/dL
[2024-07-20 13:48] LABS: Parathyroid Hormone Intact 121.3 pg/mL (8.7-77.1)
[2024-07-20 14:01] LABS: Vitamin D 25-OH Total 37.8 ng/mL (>30)
[2024-07-21 13:14] LABS: Calcium, Random Urine 0.4 mg/dL
== END 2024-07-20 11:33 | disposition home or self-care (01) ==
LOC: HO.HMGCLDS 11:32
PROVIDERS: PCP Internal Medicine; Visit Provider Internal Medicine Nephrology
DX: I12.9 Hypertensive chronic kidney disease with stage 1 through stage 4 chronic kidney disease, or unspecified chronic kidney disease (principal); N18.31 Chronic kidney disease, stage 3a; Z87.442 Personal history of urinary calculi
CPT/HCPCS: 36415; 80053; 82306; 82310; 82570; 83735; 83970; 84100; 84156; 84550; 84560; 85025

== ENCOUNTER 2024-09-02 09:52 | Outpatient (REF) | payer OTHER, SELFPAY ==
[2024-09-02 13:20] LABS: MANUAL DIFF FLAG NO
[2024-09-02 13:33] LABS: Basophils Absolute Auto 0.1 X10*3/uL (0.0-0.2); Basophils Percent Auto 0.6 % (0-2); Eosinophils Absolute Auto 0.2 X10*3/uL (0.0-0.4); Eosinophils Percent Auto 2.1 % (0-4); Hematocrit 37.1 % (37.0-47.0); Hemoglobin 11.8 g/dl (12.0-16.0); Imm Gran Abs Auto 0.05 X10*3/uL (0.00-0.03); Imm Gran Pct Auto 0.6 % (0.0-0.4); Lymphocytes Absolute Auto 1.3 X10*3/uL (1.2-4.9); Lymphocytes Percent Auto 15.1 % (20-40); Mean Corpuscular HGB Conc 31.8 g/dl (31.0-35.0); Mean Corpuscular Hemoglobin 31.3 pg (27.0-33.0); Mean Corpuscular Volume 98.4 fL (80.0-98.0); Mean Platelet Volume 10.3 fL (9.4-12.3); Monocytes Absolute Auto 0.9 X10*3/uL (0.1-1.2); Monocytes Percent Auto 10.3 % (2-11); Neutrophils Absolute Auto 6.2 x10*3/uL (2.0-8.3); Neutrophils Percent Auto 71.3 % (45-73); Platelet Count 273 X10*3/uL (160-400); Red Blood Count 3.77 X10*6/uL (4.20-5.50); Red Cell Distribution Width 14.8 % (11.0-16.0); White Blood Count 8.7 X10*3/uL (4.8-10.8)
[2024-09-02 13:44] LABS: Alanine Aminotransferase 20 U/L (0-31); Albumin Level 3.9 g/dL (3.5-5.0); Alkaline Phosphatase 80 U/L (39-117); Anion Gap 16 (12-20); Aspartate Amino Transferase 22 U/L (5-31); Bilirubin Total 0.3 mg/dL (0.0-1.0); Blood Urea Nitrogen 22 mg/dL (9-16); Calcium 9.5 mg/dL (8.4-10.2); Carbon Dioxide 24 mmol/L (22-29); Chloride 105 mmol/L (96-108); Cholesterol 233 mg/dL (<200); Estimated Glomerular Filt Rate 46; Glucose Fasting 88 mg/dL (60-99); HDL Cholesterol 54 mg/dL (>40); LDL Cholesterol Calculated 153 mg/dL (<100); Potassium 4.5 mmol/L (3.3-5.1); Sodium 140 mmol/L (135-145); Triglycerides 131 mg/dL (<150)
[2024-09-02 14:03] LABS: Vitamin D 25-OH Total 63.7 ng/mL (>30)
== END 2024-09-02 09:53 | disposition home or self-care (01) ==
LOC: HO.HMGCLDS 09:52
PROVIDERS: PCP Internal Medicine; Visit Provider Internal Medicine
DX: N18.30 Chronic kidney disease, stage 3 unspecified (principal); I10 Essential (primary) hypertension; E55.9 Vitamin D deficiency, unspecified; D64.9 Anemia, unspecified
CPT/HCPCS: 36415; 80053; 80061; 82306; 85025

== ENCOUNTER 2024-09-10 09:49 | Outpatient (AMB) | payer OTHER, SELFPAY ==
--- NOTE | 2024-09-10 09:54 | MHC.PC.OV ---
Vital Signs 09/10/24 09:57 Height 5 ft 8 in Weight 270 lb BMI 41.0 BP 128/66 Blood Pressure Location Lt brachial Position Sitting Pulse 68 Pulse Source Pulse Oximeter Pulse Oximetry (%) 99 Oxygen Delivery Method Room Air Intake Visit Reasons: Annual PE Intake Note: Pt is here today for PE. Allergies metoprolol Allergy (Severe, Verified 09/10/24 09:59) Rash doxycycline Adverse Reaction (Intermediate, Verified 09/10/24 09:59) Abdominal Pain methylprednisolone Adverse Reaction (Intermediate, Verified 09/10/24 09:59) rapid heart rate erythromycin base Adverse Reaction (Unknown, Verified 09/10/24 09:59) upset stomach nausea Medication List - Last Reconciled 09/10/24 by Viola Mack MD amlodipine 5 mg PO DAILY apixaban (Eliquis) 5 mg PO BID 90 days atenolol 50 mg PO DAILY desonide 0.05% topical fluticasone propionate 50 mcg/actuation 1 spray intranasal BID PRN furosemide 20 mg PO Q OTHER DAY glucosamine sulfate 750 mg PO ONCE lisinopril 10 mg PO DAILY lorazepam 0.5 mg PO DAILY PRN multivitamin 1 tab PO DAILY Tobacco use date assessed: 09/10/24 Fall risk assessment: No Falls in past year Last assessed Fall Risk: 09/10/24 Dental Screening Dental Screen Date: 09/10/24 Did you have a dental visit in the last 12 months?: Yes Did you have a dental problem in the last 6 months where you did not have access to dental care?: No Was dental information given to patient?: Patient has dentist HPI Annual PE HPI Details Pt presents for PE. PFSH Medical History (Updated 09/10/24 @ 12:58 by Viola Mack MD) SHARIF (obstructive sleep apnea) Retrognathia Atrial fibrillation Chest pain Morbid obesity CKD (chronic kidney disease) stage 3, GFR 30-59 ml/min Hyperlipemia Annual physical exam Mammogram normal DJD (degenerative joint disease), lumbar Anxiety Overweight HTN (hypertension) Surgical History (Updated 09/10/24 @ 10:12 by Viola Mack MD) H/O bilateral cataract extraction H/O lithotripsy H/O colonoscopy Family History Father No problems noted. Mother HTN (hypertension) Social History Housing: House Alcohol intake: current Alcohol intake frequency: holidays/special occasions only Patient Tobacco Use Status: Never used Tobacco e-Cigarette/Vaping Use: Never Used Second Hand Smoke Exposure: No service: No Current occupational status: retired Cognitive needs: No Hearing needs: No Vision needs: Yes Questionnaire PHQ-9 Over the last 2 weeks, how often have you been bothered by any of the following problems? 1. Little interest or pleasure in doing things: not at all 2. Feeling down, depressed, or hopeless: not at all 3. Trouble falling or staying asleep, or sleeping too much: not at all 4. Feeling tired or having little energy: not at all 5. Poor appetite or overeating: not at all 6. Feeling bad about yourself - or that you are a failure or have let yourself or your family down: not at all 7. Trouble concentrating on things, such as reading the newspaper or watching television: not at all 8. Moving or speaking so slowly that other people could have noticed. Or the opposite - being so fidgety or restless that you have been moving around a lot more than usual: not at all 9. Thoughts that you would be better off or of hurting yourself in some way: not at all Total score: 0 Depression Screening Interpretation: Negative Depression Screening Done: Yes 22946 - PHQ-9 Billing: Yes Source: Developed by Drs. Gopi Baker, Stefani Doyle, Alfonso Carey and colleagues, with an educational jeancarlos from [email or web address]. Thrive Questionnaire Date Thrive assessed: 09/10/24 I am a: Patient What is your living situation today?: I have a steady place to live Within the past 12 months, did the food you bought not last and you didn't have the money to get more?: Never true Within the past 12 months, did you worry whether your food would run out before you got money to buy more?: Never true Do you have trouble paying for medicines?: No Do you have trouble getting transportation to medical appointments?: No Do you have trouble paying your heating and electricity bill?: No Do you have trouble taking care of your child, family member or friend?: No Do you have trouble with day-to-day activities such as bathing, preparing meals, shopping, managing finances, etc.?: No Are you currently unemployed and looking for a job?: No Are you interested in more education?: No Please select the resources that you would like help with: None Currently or been in a relationship where the following occur: No concerns reported THRIVE Score: 0 AUDIT C Alcohol Use Questionnaire (AUDIT-C) 1. How often do you have a drink containing alcohol?: Monthly or less 2. How many drinks containing alcohol do you have on a typical day when you are drinking?: 1 or 2 3. How often do you have six or more drinks on one occasion?: Never Total Score: 1 HANNA-7 AMB Questionnaire HANNA-7 Date HANNA - 7 assessed: 09/10/24 Feeling nervous, anxious, or on edge: 0 = Not at all Not being able to stop or control worryin = Not at all Worrying too much about different things: 0 = Not at all Trouble relaxin = Not at all Being so restless that it is hard to sit still: 0 = Not at all Becoming easily annoyed or irritable: 0 = Not at all Feeling afraid as if something awful might happen: 0 = Not at all Total HANNA-7 score (0-4 normal; 5-9 mild; 10-14 moderate; 15-21 severe): 0 Source: Developed by Drs. Gopi Baker, Stefani Doyle, Alfonso Carey and colleagues, with an educational jeancarlos from [email or web address]. HANNA-7 Assessment Billing HANNA-7 Assessment Tool: HANNA-7 Assessment 11779 Review of Systems Const All systems reviewed & are unremarkable except as noted in HPI and below Eyes Reports no additional complaints ENT Reports no additional complaints Card Reports no additional complaints Resp Reports no additional complaints GI Reports no additional complaints Reports no additional complaints Psych Reports no additional complaints Physical exam (Primary Care) Vital Signs: Last Vital Signs Pulse 68 09/10/24 09:57 BP 128/66 09/10/24 09:57 Pulse Ox 99 09/10/24 09:57 Oxygen Delivery Method Room Air 09/10/24 09:57 BMI result Body Mass Index 41.0 Tobacco/Smoking Status: Tobacco use Status Tobacco use date assessed 09/10/24 09/10/24 10:02 Patient Tobacco Use Status Never used Tobacco 09/10/24 09:54 e-Cigarette/Vaping Use Never Used 09/10/24 09:54 PHQ-9: PHQ-9 Score PHQ-9: Total score 0 09/10/24 10:08 Depression Screening Interpretation: Negative Thrive Assessment: Date of Thrive Assessment Date Thrive assessed 09/10/24 09/10/24 10:02 Currently or been in a relationship where the following occur: No concerns reported Const General: no acute distress HENMT Head: Yes normal to inspection Face and sinus: Yes normal facial exam Mouth: Normal oral and palatal mucosa present Throat: Yes posterior oropharynx normal Eyes General: appearance normal, both eyes and all related structures Neck Neck: Yes no lymphadenopathy and Yes supple Resp Effort & Inspection: normal respiratory effort Auscultation: clear to auscultation bilaterally Cardio Rhythm: regular rhythm Heart sounds: S1 normal heart sound present and S2 normal heart sound present GI Inspection: Yes normal to inspection Palpation (GI): Soft to palpation Percussion: Yes normal to percussion Auscultation: normal bowel sounds Coding Level of Care Code Est Pt Prev Care >65y(27890) Diagnoses HTN (hypertension) I10 Annual physical exam Z00.00 H/O colonoscopy Z98.890 Morbid obesity E66.01 Hyperlipemia E78.5 Vitamin D deficiency E55.9 Additional Codes HANNA-7 Assessment Billing - HANNA-7 Assessment Tool: HANNA-7 Assessment [id number] ([id number]) PHQ-9 - 65248 - PHQ-9 Billing: Yes ([id number]) Assessment & Plan Assessment & Plan (1) HTN (hypertension): Code(s): I10 - Essential (primary) hypertension Category: Medical Plan: cont meds (2) Annual physical exam: Code(s): Z00.00 - Encounter for general adult medical examination without abnormal findings Category: Medical Plan: Well-balanced diet regular exercise weight loss discussed with the patient. She is up-to-date with mammogram colonoscopy (3) H/O colonoscopy: Comment: negative colonoscopy 06/30 Code(s): Z98.890 - Other specified postprocedural states Category: Surgical Plan: Up-to-date with colonoscopy (4) Morbid obesity: Comment: BMI= 42.0 PATIENT IS THE DEFINITELY OVERWEIGHT. OBESITY IS MAINLY TRUNCAL AND OF THE LOWER EXTREMITIES. SHE HAS CHRONIC LYMPHEDEMA AND STASIS EDEMA Code(s): E66.01 - Morbid (severe) obesity due to excess calories Category: Medical Plan: Decrease caloric intake increase physical activity and weight loss discussed with the patient (5) Hyperlipemia: Comment: Patient refuses statin Code(s): E78.5 - Hyperlipidemia, unspecified Category: Medical Plan: Continue low-cholesterol diet (6) Vitamin D deficiency: Code(s): E55.9 - Vitamin D deficiency, unspecified Category: Medical Plan: Continue vitamin-D. Orders: Orders Lipid Panel 6 Months E55.9 - Vitamin D deficiency, unspecified, E78.5 - Hyperlipidemia, unspecified, I10 - Essential (primary) hypertension Vitamin D 25-OH Total 6 Months E55.9 - Vitamin D deficiency, unspecified, E78.5 - Hyperlipidemia, unspecified, I10 - Essential (primary) hypertension Comprehensive Ovando. Panel Fast 6 Months E55.9 - Vitamin D deficiency, unspecified, E78.5 - Hyperlipidemia, unspecified, I10 - Essential (primary) hypertension Complete Blood Count Auto Diff 6 Months E55.9 - Vitamin D deficiency, unspecified, E78.5 - Hyperlipidemia, unspecified, I10 - Essential (primary) hypertension TSH reflex Free T4 6 Months E55.9 - Vitamin D deficiency, unspecified, E78.5 - Hyperlipidemia, unspecified, I10 - Essential (primary) hypertension
[2024-09-10 09:57] VITALS: BP 128/66; PULSE 68; O2SAT 99; BMI 41.0
--- OUTSIDE RECORDS SUMMARY | 2024-09-16 01:07 | XMS_ITS ---
Author Organization [facility] Address [address] [place] [address] Care Team Providers Care Portfolio Mgr Name Role Phone Viola Mack MD Primary Care Provider Unavaila ble Black, Katharina Unavailable [phone] Allergies Allergen (clinical drug ingredient) Drug/Non Drug Allergy documented on EMR Reaction Allergy Type Onset Date Status Biaxin Unknown Drug Allergy Active Doxycycline Calcium stomach upset Drug Allergy Active erythromycin Erythromycin Unknown Drug Allergy A ctive azithromycin Azithromycin Unknown Drug Allergy A ctive metoprolol Metoprolol rash Drug Allergy Activ e prednisone Prednisone rapid heart beat Drug Allergy Active REASON FOR VISIT Painful nail(s) aggrevated by shoes causing difficulty standing/walking, Open sore, Ingrown Nail Medications Medication SIG (Take, Route, Frequency, Duration) Notes Start Date End Date Status Walking Boot/Pneumatic As directed Wear Daily for Until further notice 10/10/2023 Not-Taking Medrol masha 4mg as directed orally a s directed for 6 days 10/10/2023 Not-Taking Gabapentin 600 MG 1 tablet Orally Once a day for 30 day(s) Not-Taking Farxiga 5 MG 1 tablet Orally Once a day Not-Taking Tylenol PM Extra Strength 500-25 MG 1 tablet at bedtime as needed Orally Once a day Active Lisinopril 10 MG 1 tablet Orally Once a day Active Glucosamine Sulfate 750 MG 1 capsule with a meal Orally Once a day Active Multivitamin Adult - Orally Active amLODIPine Besylate 10 MG 5 mL Orally On ce a day for 30 days Active Charis Allergy 180 MG 1 tablet Orally O nce a day for 30 day(s) Active Atenolol Active Aspirin 81 MG 1 tablet Orally Once a day Not-Taking hydrOXYzine HCl 25 MG 1 tablet as needed Orally every 8 hrs Not-Taking Eliquis Active Norvasc 10 MG 1 tablet Orally Once a day Not-Taking Social History Tobacco Use: Social History Observation Description Date Details (start date - stop date) Never Smoker NA - NA Tobacco Use/Smoking Question Answer Notes Are you a: nonsmoker Additional Findings: Tobacco Non-User Current no n-smoker Alcohol Screen Question Answer Notes Did you have a drink containing alcohol in the p ast year? No Points 0 Interpretation Negative Tobacco use other than smoking: Question Answer Notes Are you an other tobacco user? No Problems Problem Type SNOMED Code ICD Code Onset Dates Problem Status W/U Status Risk Notes Problem Pressure injury of right foot stage I (disorder) ([id number]) Pressure injury of right foot, stage 1 (L89.891) Active confirmed Response to treatment,No napplicable Vital Signs Blood pressure systolic 148 mm Hg 06/15/20 24 Blood pressure diastolic 54 mm Hg 024 Height 5ft 8in in 06/15/2024 Weight 265 lbs 06/15/2024 BMI 40.29 kg/m2 06/15/2024 Procedures Procedure Date Ordered Date Performed Result Body Sit e 32583-IBSDSEX NAIL, 6 OR MORE 06/15/2024 N/A 30432-Jecytcqr Plate 06/15/2024 N/A 70793- Debride <25 sq cm 06/15/2024 N/A Encounters Encounter Location Date Provider Diagnosis [facility] [place] [address] [place] [address] 06/15/2024 Katharina Black Tinea unguium B35.1 ; Pressure injury of right foot, stage 1 L89.891 ; Pain in right toe(s) M79.674 ; Pain in left toe(s) M79.675 and Ingrown nail L60.0 Assessments Encounter Date Diagnosis (ICD Code) Assessment Notes Treatment Notes Treatment Clinical Notes Section Notes 06/15/2024 Tinea unguium (ICD-10 - B35.1) 06/15/2024 Pressure injury of right foot, stage 1 (ICD-10 - L89.891) Response to treatment,Nonap plicable Patient Educated with: WOUND CARE INSTRUCTIONS.p df (WOUND CARE INSTRUCTIONS.p df) 06/15/2024 Pain in right toe(s) (ICD-10 - M79.674) 06/15/2024 Pain in left toe(s) (ICD-10 - M79.675) 06/15/2024 Ingrown nail (ICD-10 - L60.0) 06/15/2024 Other Plan Of Treatment Treatment Notes Assessment Notes Pressure injury of right foot, stage 1 P atient Educated with: WOUND CARE INSTRUCTIONS.pdf (WOUND CARE INSTRUCTIONS.pdf) Pending Test Test Name Order Date 24954-DWGIRSU NAIL, 6 OR MORE 06/15/2024 57493-Zondhszl Plate 06/15/2024 67150- Debride <25 sq cm 06/15/2024 Next Appt Details Follow Up: 6 Weeks, Reason: Provider Name:Katharina A Rj , 09/21/2024 11:30:00 AM, [address] [place] [address], [phone], Procedure Notes * Category Sub-Category Detail Notes Nail Avulsion Procedure A fine sterile e levator was placed between the eponychium, nail fold, and nail plate to separate the structures. A sterile nail splitter, and/or sterile 316 blade, was then used to longitudinally section the nail along its entire length through the eponychium to the area under the nail fold. The offending portion of nail was from the nail bed with a rolling action and then removed with a hemostat. No underlying bone was identified. There was minimal bleeding as hemostasis was achieved through the temporary use of either a digital tourniquet or the aforementioned local with epinephrine. A bacitracin sterile dressing was applied. Local wound aftercare instructions were discussed and dispensed. The patient was informed of both conservative and future surgical procedures to prevent recurrence. Tylenol or Motrin was recommended for pain or discomfort (28392) , Pt DEFERS matricectomy Anesthesia was accomplished TOP ICALLY with Lidocaine Hydrochloride Jelly 2 percent Location Lateral nail border , TA Debride Nail 6-10 Nail debridement Nail debridem ent performed extensively to reduce/remove overall nail length, girth, thickness, subungual debris, and necrotic tissue, by manual and electrical means through the use of a nail nipper and/or dremel, to more viable healthy nail plate or bed tissue 1-5. Silver nitrate used for any petechial bleeding as necessary. Patient chooses, no pharmaceutical tx (28434) Debride skin< 25 sq cm Open wound Physician of record performed open wound selective debridement of first 25 sq cm or less, of devitilized necrotic/nonviable soft tissue, fibrin, and exudate extending from the epidermis through the dermis, utilizing sharp dissection with sterile 15 blade, and/or tissue nippers. Sterile antibiotic dressing applied, ANESTHESIA was accomplished TOPICALLY with Lidocaine Hydrochloride Jelly 2%. Hemostasis was achieved through direct pressure. Post debridement measurements: 12 mm x 11 mm x 2mm. Character of the wound post debridement is stable (90523) Progress Notes * CHAOJENNRadha GUSTAFSON EDOB: (73 yo F)Acc No.[id number]:06/15/2024 Progress Note Patient:?Radha Blandon Provider:?Katharina De La Rosa DPM :1950???Age:73 Y???Sex:Female D ate:06/15/2024 Address:[address] [place], [place] [id number] Pcp:Viola Mack MD Subjective: * Chief Complaints: * ???Painful nail(s) aggrevate d by shoes causing difficulty standing/walkingOpen soreIngrown Nail * HPI: ???Painful Nails:?Pt States Last PCP Visit:?Date:?03/03/2024 ???Skin problems:?Treatments:?none.? * Medical History:? * Surgical History:?Lithotrips y 2019eye surgery, lenses 09/28 * Hospitalization/Major Diagno stic Procedure:?[facility] [place]- rapid heart rate 10/11/23 * Family History:?Mother: dece ased, kidney disease, diagnosed with Family history of arthritis, Unspecified essential hypertension, Unspecified heart disease, Unspecified cerebral artery occlusion with cerebral infarction, Other malignant neoplasm of unspecified site.?Father: , poor circulation, foot problems.? * Social History:?Tobacco Use:?Tobacco Use/Smoking?Are you a:?nonsmoker ?Additional Findings: Tobacco Non-User?Current non-smoker ?Tobacco use other than smoking?Are you an other tobacco user??No ???Drugs/Alcohol:?Drugs?Have you used drugs other than those for medical reasons in the past 12 months??No ?Alcohol Screen?Did you have a drink containing alcohol in the past year??No ?Points?0 ?Interpretation?Negative ???Miscellaneous:?Caffeine: yes, 1 can soda occassionally. ?no Children. ?Exercise: yes, walking. ?Living with: alone. ?Marital status: single. 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 * Medications:?TakingAtenolol Eliquis Charis Allergy 180 MG Tablet 1 tablet Orally Once a dayamLODIPine Besylate 10 MG Tablet 5 mL Orally Once a dayGlucosamine Sulfate 750 MG Capsule 1 capsule with a meal Orally Once a dayLisinopril 10 MG Tablet 1 tablet Orally Once a dayMultivitamin Adult - Tablet Orally Tylenol PM Extra Strength 500-25 MG Tablet 1 tablet at bedtime as needed Orally Once a dayTaking Atenolol Taking Eliquis Taking Charis Allergy 180 MG Tablet 1 tablet Orally Once a dayTaking amLODIPine Besylate 10 MG Tablet 5 mL Orally Once a dayTaking Glucosamine Sulfate 750 MG Capsule 1 capsule with a meal Orally Once a dayTaking Lisinopril 10 MG Tablet 1 tablet Orally Once a dayTaking Multivitamin Adult - Tablet Orally Taking Tylenol PM Extra Strength 500-25 MG Tablet 1 tablet at bedtime as needed Orally Once a dayNot-Taking/PRNMedrol masha 4mg Tablet Therapy Pack as directed orally as directedWalking Boot/Pneumatic As directed Wear DailyFarxiga 5 MG Tablet 1 tablet Orally Once a dayGabapentin 600 MG Tablet 1 tablet Orally Once a dayNorvasc 10 MG Tablet 1 tablet Orally Once a dayhydrOXYzine HCl 25 MG Tablet 1 tablet as needed Orally every 8 hrsAspirin 81 MG Tablet Chewable 1 tablet Orally Once a dayMedication List reviewed and reconciled with the patientNot-Taking/PRN Medrol masha 4mg Tablet Therapy Pack as directed orally as directedNot-Taking/PRN Walking Boot/Pneumatic As directed Wear DailyNot-Taking/PRN Farxiga 5 MG Tablet 1 tablet Orally Once a dayNot-Taking/PRN Gabapentin 600 MG Tablet 1 tablet Orally Once a dayNot- Taking/PRN Norvasc 10 MG Tablet 1 tablet Orally Once a dayNot-Taking/PRN hydrOXYzine HCl 25 MG Tablet 1 tablet as needed Orally every 8 hrsNot-Taking/PRN Aspirin 81 MG Tablet Chewable 1 tablet Orally Once a dayMedication List reviewed and reconciled with the patient * Allergies:?ErythromycinBiaxi nAzithromycinMetoprolol: rash - Side EffectsPrednisone: rapid heart beat - Side EffectsDoxycycline Calcium: stomach upset - Side Effectsyes[Allergies Verified] Objective: * Vitals:?Ht: 5ft 8in, Wt:265, BMI:40.29, Shoe size: 12, BP:148/54 mm Hg, Ht-cm: 172.72 cm, Wt-k.2 kg. * Examination: ???Nails: ?NAILS are:?elongated,overgrown,dystrophic,greater than 3mm thick,discolored and friable with crumbly malodorous subungual debris, with pain on palpation, , T5, T6, T7, T9, ?T1 T4.?Dermatologic: ?ULCER:? LOCATION, 1 MTH, PlantarRIGHT, , SIZE, 10mm X 10mm X 2mm, BASE, granular, RIM, hyperkeratotic, UNDERMINING, absent, TRACKING, Full thickness breakdown of skin, DRAINAGE, serosanguineous, mild, NECROTIC TISSUE, loosely-adherent, yellow slough, MALODOR, absent, CALOR, absent, ERYTHEMA, absent, PAIN ON PALPATION, present.?Ingrown Nail: ?INSPECTION:?Reveals nail incurvation, pain on palpation, groove hypertrophy , groove ischemia , Lateral nail border , TA.? Assessment: * Assessment: 1.?Tinea unguium - B35.1?2.? Pressure injury of right foot, stage 1 - L89.891 (Primary), Response to treatment,Nonapplicable?3.?Pain in right toe(s) - M79.674?4.?Pain in left toe(s) - M79.675?5.?Ingrown nail - L60.0? Plan: * Treatment: 2.?Tinea unguium?Procedure: 10500-LGJLNYS NAIL, 6 OR MORE 3.?Ingrown nail?Procedure: 50454-Hexbsxvb Plate * Procedures:?Debride Nail 6-10:?Nail debridement?Nail debridement performed extensively to reduce/remove overall nail length, girth, thickness, subungual debris, and necrotic tissue, by manual and electrical means through the use of a nail nipper and/or dremel, to more viable healthy nail plate or bed tissue 1-5. Silver nitrate used for any petechial bleeding as necessary. Patient chooses, no pharmaceutical tx (35742).?Debride skin< 25 sq cm:?Open wound?Physician of record performed open wound selective debridement of first 25 sq cm or less, of devitilized necrotic/nonviable soft tissue, fibrin, and exudate extending from the epidermis through the dermis, utilizing sharp dissection with sterile 15 blade, and/or tissue nippers. Sterile antibiotic dressing applied, ANESTHESIA was accomplished TOPICALLY with Lidocaine Hydrochloride Jelly 2%. Hemostasis was achieved through direct pressure. Post debridement measurements: 12 mm x 11 mm x 2mm. Character of the wound post debridement is stable (50352).?Nail Avulsion:?Location?Lateral nail border , TA.?Anesthesia?was accomplished TOPICALLY with Lidocaine Hydrochloride Jelly 2 percent.?Procedure?A fine sterile elevator was placed between the eponychium, nail fold, and nail plate to separate the structures. A sterile nail splitter, and/or sterile 316 blade, was then used to longitudinally section the nail along its entire length through the eponychium to the area under the nail fold. The offending portion of nail was from the nail bed with a rolling action and then removed with a hemostat. No underlying bone was identified. There was minimal bleeding as hemostasis was achieved through the temporary use of either a digital tourniquet or the aforementioned local with epinephrine. A bacitracin sterile dressing was applied. Local wound aftercare instructions were discussed and dispensed. The patient was informed of both conservative and future surgical procedures to prevent recurrence. Tylenol or Motrin was recommended for pain or discomfort (98038) , Pt DEFERS matricectomy.? * Procedure Codes:?48832 DEBRI DE NAIL, 6 OR MORE, Modifiers: XS 44591 Avulsion Plate, [place]: [place] [address] ACTIVE WOUND CARE/20 CM OR <, Modifiers: XS * Preventive Medicine:? ??Counseling:?Ulcer:?A detailed plan of care was reviewed with the patient. We emphasized the fact that the patient takes on an active participating role in the treatment process and emphasized to them that they are an included, valued, and important member of the wound healing team in order to reach an expedient successful outcome. The patient agreed to follow their medically recommended diet while increasing their protein intake if safely able to do so, maintain proper bodily hydaration, abide by weight-bearing restrictions at all times, quit all current smoking habits if any, and diligently follow any/all dressing change instructions. It was clearly made known to the patient that if they fail to do their part, they will likely extend their course of treatment as well as possibly increase their risk of adverse events including amputation. The patient was instructed on importance of proper wound care consisting of pressure reduction, and proper maintainance of a moist wound environment. The patient is to cleanse the wound with warm soapy water/peroxide/saline, or betadine BID based on product availability. The patient is to apply ( Neosporin, Polysporin, or Triple, Debridement frequency as indicated, Every 5-8 weeks until healed, ____ ) Antibiotic to the wound and cover with a DSD as directed. The patient was instructed to change dressings according to orders, or PRN saturation, leaks. The patient was instructed to monitor and report any signs or symptoms of infection or any untoward reactions. Precautions Taken: Offloading/Pressure reduction via rest/ limited activity to essential to daily life only, cane/ crutches/ walker/ knee scooter/ wheel chair, shoe modification, accommodative padding, sharp debridement, and take/apply medication as directed. THE GOALS of wound debridement to remove devitilized tissue, decrease risk for infection, promote wound healing and prevent further complication were discussed/reviewed. Debridement frequency as indicated.? * Follow Up:?6 Weeks * Images: * Sign off status: Completed true * Provider:?Katharina De La Rosa DPM Date:?2023 Generated for William ingram/Kaity/Javi on:?09/16/2024 01:06 AM EST History and Physical Notes * HPI (History of Present Illness) Category Sub-Category Detail Notes Category Not es Painful Nails Pt States Last PCP Visit: Date:: 03/03/2024 Skin problems Treatments: none Examination Category Sub-Category Detail Notes Category Not es Ingrown Nail INSPECTION: Reveals nail inc urvation, pain on palpation, groove hypertrophy , groove ischemia , Lateral nail border , TA Dermatologic ULCER: LOCATION, 1 MTH, PlantarRIGHT, , SIZE, 10mm X 10mm X 2mm, BASE, granular, RIM, hyperkeratotic, UNDERMINING, absent, TRACKING, Full thickness breakdown of skin, DRAINAGE, serosanguineous, mild, NECROTIC TISSUE, loosely-adherent, yellow slough, MALODOR, absent, CALOR, absent, ERYTHEMA, absent, PAIN ON PALPATION, present Nails NAILS are: elongated,overgr own,dystrophic,greater than 3mm thick,discolored and friable with crumbly malodorous subungual debris, with pain on palpation, , T5, T6, T7, T9, T1 T4
--- OUTSIDE RECORDS SUMMARY | 2024-09-16 01:07 | XMS_ITS ---
Author Organization [facility] Address [address] [place] [address] Care Team Providers Care Freight Unloader Name Role Phone Viola Mack MD Primary Care Provider Unavaila Katharina Lawrence [phone] Encounters Encounter Location Date Provider Diagnosis [address] [address] 12/02/2023 Katharina De La Rosa Plan Of Treatment Next Appt Details Provider Name:Katharina Beard Rj , 09/21/2024 11:30:00 AM, [address] [place] [address], [phone], Progress Notes * Radha BLANDON EDOB: (74 yo F)Acc No.[id number]:12/02/2023 Progress Note Patient:?Radha BLANDON Provider:?Katharina De La Rosa DPM :1950???Age:73 Y???Sex:Female D ate:12/02/2023 Address:[id number] Pcp:Viola Mack MD Subjective: * Chief Complaints: * ??? * Medical History:? Objective: * Vitals:? Assessment: Plan: * Treatment: * Images: * The named appointment provid er may or may not be the originator of this progress note, and it is not deemed complete until electronically signed by the appointment provider. Sign off status: Pending * Provider:Padmini De La Rosa DPM Date:?2023 Generated for William ingram/Kaity/Javi on:?09/16/2024 01:06 AM EST
--- OUTSIDE RECORDS SUMMARY | 2024-09-16 01:07 | XMS_ITS ---
[facility] Address [address] [place] [address] Care Team Providers Care Federal Judge Name Role Phone Viola Mack MD Primary Care Provider Unavaila ble Black, Katharina Unavailable [phone] Allergies Allergen (clinical drug ingredient) Drug/Non Drug [...] Painful nail(s) aggrevated by shoes causing difficulty standing/walking Medications Medication SIG (Take, Route, Frequency, Duration) Notes Start Date End Date Status Norvasc 10 MG 1 tablet Orally Once a day Not-Taking Atenolol Active Eliquis Active hydrOXYzine HCl 25 MG 1 tablet as needed Orally every 8 hrs Unknown Aspirin 81 MG 1 tablet Orally Once a day Unknown Farxiga 5 MG 1 tablet Orally Once a day Not-Taking Gabapentin 600 MG 1 tablet Orally Once a day for 30 day(s) Not-Taking Tylenol PM Extra Strength 500-25 MG 1 tablet at bedtime as needed Orally Once a day Active Medrol masha 4mg as directed orally a s directed for 6 days 10/10/2023 Not-Taking Walking Boot/Pneumatic As directed Wear Daily for Until further notice 10/10/2023 Not-Taking Multivitamin Adult - Orally Active Charis Allergy 180 MG 1 tablet Orally O nce a day for 30 day(s) Active amLODIPine Besylate 10 MG 5 mL Orally On ce a day for 30 days Active Glucosamine Sulfate 750 MG 1 capsule with a meal Orally Once a day Active Lisinopril 10 MG 1 tablet Orally Once a day Active Social History Tobacco Use: Social History Observation [...] Are you an other tobacco user? No Vital Signs Blood pressure systolic 152 mm Hg 02/24/20 24 Blood pressure diastolic 60 mm Hg 024 Height 5ft9in in 02/24/2024 Weight 265 lbs 02/24/2024 BMI 39.13 kg/m2 02/24/2024 Procedures Procedure Date Ordered Date Performed Result Body Sit e 13095-ULLONYX NAIL, 6 OR MORE 02/24/2024 N/A Encounters Encounter Location Date Provider Diagnosis [facility] [address] [address] 02/24/2024 Katharina De La Rosa Tinea unguium B35.1 ; Pain in right toe(s) M79.674 and Pain in left toe(s) M79.675 Assessments Encounter Date Diagnosis (ICD Code) Assessment Notes Treatment Notes Treatment Clinical Notes Section Notes 02/24/2024 Tinea unguium (ICD-10 - B35.1) 02/24/2024 Pain in right toe(s) (ICD-10 - M79.674) 02/24/2024 Pain in left toe(s) (ICD-10 - M79.675) Plan Of Treatment Pending Test Test Name Order Date 75778-ZWTSAQX NAIL, 6 OR MORE 02/24/2024 Next Appt Details Follow Up: prn, Reason: Provider Name:Katharina De La Rosa , 09/21/2024 11:30:00 AM, [address] [place] [address], [phone], Procedure Notes * Category Sub-Category Detail Notes Debride Nail 6-10 Nail debridement Nail debridem ent performed extensively to reduce/remove overall nail length, girth, thickness, subungual debris, and necrotic tissue, by manual and electrical means through the use of a nail nipper and/or dremel, to more viable healthy nail plate or bed tissue 1-5. Silver nitrate used for any petechial bleeding as necessary. Patient chooses, no pharmaceutical tx (80348) Progress Notes * Radha BLANDON EDOB: (73 yo F)Acc No.[id number]:02/24/2024 Progress Note Patient:?Radha Blandon Provider:?Katharina De La Rosa DPM :1950???Age:73 Y???Sex:Female D ate:02/24/2024 Address:[address] [place], [place] [address] Pcp:Viola Mack MD Subjective: * Chief Complaints: * ???Painful nail(s) aggrevate d by shoes causing difficulty standing/walking * HPI: ???Painful Nails:?Pt States Last PCP Visit:?Date:?11/28/2023 * Medical History:? * Surgical History:?Lithotrips y 2019eye surgery, lenses 09/28 * Hospitalization/Major Diagno stic Procedure:?[facility]- rapid heart rate 10/11/23 * Family History:?Mother: [...] Tablet 1 tablet Orally Once a dayNot-Taking/PRN Medrol masha 4mg Tablet Therapy Pack as directed orally as directedNot-Taking/PRN Walking Boot/Pneumatic As directed Wear DailyNot-Taking/PRN Farxiga 5 MG Tablet 1 tablet Orally Once a dayNot-Taking/PRN Gabapentin 600 MG Tablet 1 tablet Orally Once a dayNot-Taking/PRN Norvasc 10 MG Tablet 1 tablet Orally Once a dayUnknownhydrOXYzine HCl 25 MG Tablet 1 tablet as needed Orally every 8 hrsAspirin 81 MG Tablet Chewable 1 tablet Orally Once a dayMedication List reviewed and reconciled with the patientUnknown hydrOXYzine HCl 25 MG Tablet 1 tablet as needed Orally every 8 hrsUnknown Aspirin 81 MG Tablet Chewable 1 tablet Orally Once a dayMedication List reviewed and reconciled with the patient * Allergies:?ErythromycinBiaxi nAzithromycinMetoprolol: rash - Side EffectsPrednisone: rapid heart beat - Side EffectsDoxycycline Calcium: stomach upset - Side Effectsyes[Allergies Verified] Objective: * Vitals:?Ht: 5ft9in, Wt:265, BMI:39.13, Shoe size: 12, BP:152/60 mm Hg, Ht-cm: 175.26 cm, Wt-k.2 kg. * Examination: ???Nails: ?NAILS are:?elongated,overgrown,dystrophic,greater than 3mm thick,discolored and friable with crumbly malodorous subungual debris, with pain on palpation, , T5, T6, T7, T9, ?T1 T4.? Assessment: * Assessment: 1.?Tinea unguium - B35.1?2.? Pain in right toe(s) - M79.674?3.?Pain in left toe(s) - M79.675? Plan: * Treatment: * Procedures:?Debride Nail 6-10:?Nail debridement?Nail debridement performed extensively to reduce/remove overall nail length, girth, thickness, subungual debris, and necrotic tissue, by manual and electrical means through the use of a nail nipper and/or dremel, to more viable healthy nail plate or bed tissue 1-5. Silver nitrate used for any petechial bleeding as necessary. Patient chooses, no pharmaceutical tx (52155).? * Procedure Codes:?42877 DEBRI DE NAIL, 6 OR MORE * Follow Up:?prn * Images: * Sign off status: Completed true * Provider:?Katharina De La Rosa DPM Date:?2023 Generated for William ingram/Kaity/Buditting on:?09/16/2024 01:06 AM EST History and Physical Notes * HPI (History of Present Illness) Category Sub-Category Detail Notes Category Not es Painful Nails Pt States Last PCP Visit: Date:: 11/28/2023 Examination Category Sub-Category Detail Notes Category Not es Nails NAILS are: elongated,overgr own,dystrophic,greater than 3mm thick,discolored and friable with crumbly malodorous subungual debris, with pain on palpation, , T5, T6, T7, T9, T1 T4
--- OUTSIDE RECORDS SUMMARY | 2024-09-16 01:07 | XMS_ITS | Patient Health Record ---
Author Organization [facility] Address [address] [place] [address] Care Team Providers Care Arcgis Developer Name Role Phone Viola Mack MD Primary Care Provider Unavaila marc Black, Katharina Unavailable [phone] Allergies Allergen (clinical drug ingredient) Drug/Non Drug Allergy documented on EMR Reaction Allergy Type Onset Date Status Biaxin Unknown Drug Allergy Active Doxycycline Calcium stomach upset Drug Allergy Active erythromycin Erythromycin Unknown Drug Allergy A ctive azithromycin Azithromycin Unknown Drug Allergy A ctive metoprolol Metoprolol rash Drug Allergy Activ e prednisone Prednisone rapid heart beat Drug Allergy Active Results Component Value Reference Range Notes X ray : Foot, right 3V Reviewed date:10/10/2023 12:20:00 PM Interpretation:See Examination above Performing Lab: Notes/Report: See Examination above X ray : Foot, right 3V Reviewed date:11/14/2023 02:32:56 PM Interpretation:See Examination above Performing Lab: Notes/Report: See Examination above Reason For Referral No Information Medications Medication SIG (Take, Route, Frequency, Duration) Notes Start Date End Date Status Walking Boot/Pneumatic As directed Wear Daily for Until further notice 10/10/2023 Not-Taking Medrol masha 4mg as directed orally a s directed for 6 days 10/10/2023 Not-Taking Atenolol Active Gabapentin 600 MG 1 tablet Orally Once a day for 30 day(s) Not-Taking Farxiga 5 MG 1 tablet Orally Once a day Not-Taking Lisinopril 10 MG 1 tablet Orally Once a day Active Glucosamine Sulfate 750 MG 1 capsule with a meal Orally Once a day Active Tylenol PM Extra Strength 500-25 MG 1 tablet at bedtime as needed Orally Once a day Active Multivitamin Adult - Orally Active Charis Allergy 180 MG 1 tablet Orally O nce a day for 30 day(s) Active Eliquis Active Norvasc 10 MG 1 tablet Orally Once a day Not-Taking amLODIPine Besylate 10 MG 5 mL Orally On ce a day for 30 days Active Aspirin 81 MG 1 tablet Orally Once a day Not-Taking hydrOXYzine HCl 25 MG 1 tablet as needed Orally every 8 hrs Not-Taking Immunizations Vaccine Route Administration Date Status Comme nts COVID-19 Moderna Vaccine Unknown 12/29/2020 Administere d 1st 12/01/2020 Influenza Unknown 08/07/2021 Refused Social History Tobacco Use: Social History Observation [...] Problem Status W/U Status Risk Notes Problem Localized, primary osteoarthritis of the ankle and/or foot (452668538) Primary osteoarthrit is, left ankle and foot (M19.072) Active confirmed Problem Non-pressure ulcer lower limb (675515965) Non-pressure chronic ulcer of other part of right foot limited to breakdown of skin (L97.511) Active confirmed Problem Acquired hammer toe of right foot (4987788382223831 ) Other hammer toe(s) (acquired), right foot (M20.41) Active confirmed Problem Acquired hammer toe of left foot (9497185046645671 ) Other hammer toe(s) (acquired), left foot (M20.42) Active confirmed Problem Pressure injury of right foot stage I (disorder) (378556213392815) Pressure injury of right foot, stage 1 (L89.891) Active confirmed Response to treatment,N onapplicabl e Vital Signs Blood pressure diastolic 54 mm Hg 06/15/2024 Height 5ft 8in in 06/15/2024 Blood pressure systolic 148 mm Hg 06/15/2024 Weight 265 lbs 06/15/2024 BMI 40.29 kg/m2 06/15/2024 Procedures Procedure Date Ordered Date Performed Result Body Sit e 41439-FKHETLS NAIL, 6 OR MORE 11/14/2023 N/A 99981-HBAOEJZ NAIL, 6 OR MORE 02/24/2024 N/A 69269-GRGESHW NAIL, 6 OR MORE 06/15/2024 N/A 22831-Kbixtxkl Plate 06/15/2024 N/A 06825- Debride <25 sq cm 06/15/2024 N/A Encounters Encounter Location Date Provider Diagnosis [address] [address] 10/10/2023 Katharina Black Pain in right foot M79.671 ; Hypertrophy of bone, right ankle and foot M89.371 ; Flat foot [pes planus] (acquired), right foot M21.41 ; Posterior tibial tendinitis, right leg M76.821 ; Stress fracture of metatarsal bone of right foot, initial encounter M84.374A and Lower extremity edema R60.[address] [address] 10/24/2023 Katharina Black Pain in right foot M79.671 ; Stress fracture of metatarsal bone of right foot with routine healing, subsequent encounter M84.374D ; Hypertrophy of bone, right ankle and foot M89.371 ; Flat foot [pes planus] (acquired), right foot M21.41 ; Posterior tibial tendinitis, right leg M76.821 and Lower extremity edema R60.[address] [address] 11/14/2023 Katharina Black Pain in right foot M79.671 ; Stress fracture of metatarsal bone of right foot with routine healing, subsequent encounter M84.374D ; Hypertrophy of bone, right ankle and foot M89.371 ; Flat foot [pes planus] (acquired), right foot M21.41 ; Posterior tibial tendinitis, right leg M76.821 ; Lower extremity edema R60.0 ; Tinea unguium B35.1 ; Pain in right toe(s) M79.674 and Pain in left toe(s) M79.[address] [facility] [address] 02/24/2024 Katharina Black Tinea unguium B35.1 ; Pain in right toe(s) M79.674 and Pain in left toe(s) M79.[address] [address] 06/15/2024 Katharina Black Tinea unguium B35.1 ; Pressure injury of right foot, stage 1 L89.891 ; Pain in right toe(s) M79.674 ; Pain in left toe(s) M79.675 and Ingrown nail L60.[address] [address] 10/01/2023 Katharina De La Rosa [address] [address] 10/11/2023 Katharinacynthia De La Rosa [address] [address] 10/28/2023 Katharina De La Rosa Assessments Encounter Date Diagnosis (ICD Code) Assessment Notes Treatment Notes Treatment Clinical Notes Section Notes 10/10/2023 Hypertrophy of bone, right ankle and foot (ICD-10 - M89.371) 10/10/2023 Pain in right foot (ICD-10 - M79.671) 10/24/2023 Pain in right foot (ICD-10 - M79.671) 10/24/2023 Stress fracture of metatarsal bone of right foot with routine healing, subsequent encounter (ICD-10 - M84.374D) 11/14/2023 Pain in right foot (ICD-10 - M79.671) 11/14/2023 Stress fracture of metatarsal bone of right foot with routine healing, subsequent encounter (ICD-10 - M84.374D) 02/24/2024 Tinea unguium (ICD-10 - B35.1) 02/24/2024 Pain in right toe(s) (ICD-10 - M79.674) 06/15/2024 Tinea unguium (ICD-10 - B35.1) 06/15/2024 Pressure injury of right foot, stage 1 (ICD-10 - L89.891) Response to treatment,Nonapp licable Patient Educated with: WOUND CARE INSTRUCTIONS.p df (WOUND CARE INSTRUCTIONS.p df) 11/14/2023 Hypertrophy of bone, right ankle and foot (ICD-10 - M89.371) 06/15/2024 Pain in right toe(s) (ICD-10 - M79.674) 02/24/2024 Pain in left toe(s) (ICD-10 - M79.675) 10/24/2023 Hypertrophy of bone, right ankle and foot (ICD-10 - M89.371) 10/10/2023 Flat foot [pes planus] (acquired), right foot (ICD-10 - M21.41) 10/10/2023 Posterior tibial tendinitis, right leg (ICD-10 - M76.821) 10/24/2023 Flat foot [pes planus] (acquired), right foot (ICD-10 - M21.41) 11/14/2023 Flat foot [pes planus] (acquired), right foot (ICD-10 - M21.41) 06/15/2024 Pain in left toe(s) (ICD-10 - M79.675) 06/15/2024 Ingrown nail (ICD-10 - L60.0) 11/14/2023 Posterior tibial tendinitis, right leg (ICD-10 - M76.821) Response to treatment - Improvement 10/24/2023 Posterior tibial tendinitis, right leg (ICD-10 - M76.821) 10/10/2023 Stress fracture of metatarsal bone of right foot, initial encounter (ICD-10 - M84.374A) Patient Educated with: RICE THERAPY.pdf (RICE THERAPY.pdf) 10/10/2023 Lower extremity edema (ICD-10 - R60.0) 10/24/2023 Lower extremity edema (ICD-10 - R60.0) 11/14/2023 Lower extremity edema (ICD-10 - R60.0) 11/14/2023 Tinea unguium (ICD-10 - B35.1) 11/14/2023 Pain in right toe(s) (ICD-10 - M79.674) 11/14/2023 Pain in left toe(s) (ICD-10 - M79.675) 10/24/2023 Other Patient Educated with: RICE THERAPY.pdf (RICE THERAPY.pdf) 11/14/2023 Other 06/15/2024 Other Plan Of Treatment Pending Test Test Name Order Date 83345-OPWRVJZ NAIL, 6 OR MORE 08/07/2021 61069-IUUAIYV NAIL, 6 OR MORE 12/11/2021 06814-URCYIMW NAIL, 6 OR MORE 04/16/2022 63028-JYVGQQV NAIL, 6 OR MORE 08/20/2022 35279-JEDRFUQ NAIL, 6 OR MORE 12/31/2022 64539-SYMHINQ NAIL, 6 OR MORE 05/06/2023 07241-JJJCDUG NAIL, 6 OR MORE 11/14/2023 36857-ZOMOLQM NAIL, 6 OR MORE 02/24/2024 31418-FDBEFPM NAIL, 6 OR MORE 06/15/2024 62212-Yngrajos Plate 05/06/2023 41499-Vabbrsnm Plate 06/15/2024 18359-Hcqnvtvm Plate 12/31/2022 62975- Debride <25 sq cm 12/11/2021 63461- Debride <25 sq cm 05/06/2023 19125- Debride <25 sq cm 12/31/2022 40399- Debride <25 sq cm 08/20/2022 27602- Debride <25 sq cm 04/16/2022 00373- Debride <25 sq cm 09/04/2021 98528- Debride <25 sq cm 04/16/2018 66823- Debride <25 sq cm 05/25/2021 02680- Debride <25 sq cm 08/07/2021 51744- Debride <25 sq cm 06/15/2024 26804,K5991-WOY TENDON SHEATH/LIGAMENT 1 10/07/2020 67473,V1460-XZC TENDON SHEATH/LIGAMENT 0 05/25/2021 13657,C2166-UAG TENDON SHEATH/LIGAMENT 1 11/04/2020 Next Appt Details Provider Name:Katahrina A Rj , 09/21/2024 11:30:00 AM, [address] [place] [address], [place], [address], Insurance Providers Payer Name Payer Address Payer Phone Subscriber Number Group Number Insured Name Patient Relationship to Insured Coverage Start Date Coverage End Date [facility] [address] [place] [id number] Radha Blandon Self - patient is the insured Medical (General) History Medical History History ICD Code Anemia Anxiety disorder Arthritis Back,Hip,and Knee pain Chicken pox High blood pressure Kidney stones Measles Mumps Broken bones Sciatica A fib Surgical History Surgery Date(Month/Year) Lithotripsy 2019 eye surgery, lenses 09/28 Hospitalization History Reason Date(Month/Year) [facility] [place]- rapid heart rate 10/11/23
== END 2024-09-10 10:23 | disposition home or self-care (01) ==
PROVIDERS: PCP Internal Medicine; Visit Provider Internal Medicine
DX: Z00.00 Encounter for general adult medical examination without abnormal findings (principal); I10 Essential (primary) hypertension; E66.01 Morbid (severe) obesity due to excess calories; Z68.41 Body mass index [BMI] 40.0-44.9, adult; Z98.890 Other specified postprocedural states; E78.5 Hyperlipidemia, unspecified; E55.9 Vitamin D deficiency, unspecified

== ENCOUNTER → 2024-09-10 09:49 | Outpatient (BNVA) | payer OTHER, SELFPAY | PROVIDERS: PCP Internal Medicine; Visit Provider Internal Medicine | DX: Z00.00 Encounter for general adult medical examination without abnormal findings (principal); I10 Essential (primary) hypertension; E66.01 Morbid (severe) obesity due to excess calories; Z68.41 Body mass index [BMI] 40.0-44.9, adult; E78.5 Hyperlipidemia, unspecified; E55.9 Vitamin D deficiency, unspecified | CPT/HCPCS: 96127 ==

== ENCOUNTER 2024-09-16 09:23 | Emergency (ER) | payer OTHER, SELFPAY ==
[2024-09-16 09:26] VITALS: BP 172/49; PULSE 61; RESP 18; TEMP 36.4; O2SAT 99; BMI 41.0
--- OUTSIDE RECORDS SUMMARY | 2024-09-17 03:14 | XMS_ITS ---
Author Organization [facility] Address [address] [place] [address] Care Team Providers Care Intensive Care Unit Registered Nurse Name Role Phone Viola Mack MD Primary Care Provider Unavaila ble Black, Katharina Unavailable [phone] Allergies Allergen (clinical drug ingredient) Drug/Non Drug [...] an other tobacco user? No Vital Signs Height 5ft9in in 02/24/2024 Weight 265 lbs 02/24/2024 BMI 39.13 kg/m2 02/24/2024 Blood pressure systolic 152 mm Hg 02/24/20 24 Blood pressure diastolic 60 mm Hg 024 Procedures Procedure Date Ordered Date Performed Result Body Sit e 58946-LDOHRVM NAIL, 6 OR MORE 02/24/2024 N/A Encounters Encounter Location Date Provider Diagnosis [facility] [address] [address] 02/24/2024 Katharina De La Rosa Tinea unguium [...] Treatment Pending Test Test Name Order Date 16407-EZFAAYK NAIL, 6 OR MORE 02/24/2024 Next Appt Details Follow Up: prn, Reason: Provider Name:Katharina De La Rosa , 09/21/2024 11:30:00 AM, [address] [place] [address], [phone], Procedure Notes * Category Sub-Category Detail Notes [...] as necessary. Patient chooses, no pharmaceutical tx (47336) Progress Notes * Radha BLANDON EDOB: (73 yo F)Acc No.[id number]:02/24/2024 Progress Note Patient:?Radha Blandon Provider:?Katharina De La Rosa DPM :1950???Age:73 Y???Sex:Female D ate:02/24/2024 [facility] [place] [place] [address] Pcp:Viola Mack MD Subjective: * Chief Complaints: [...] as necessary. Patient chooses, no pharmaceutical tx (92426).? * Procedure Codes:?20419 DEBRI DE NAIL, 6 OR MORE * Follow Up:?prn * Images: * Sign off status: Completed true * Provider:?Katharina De La Rosa DPM Date:?2023 Generated for William ingram/Kaity/Buditting on:?09/17/2024 03:14 AM EST History and Physical Notes * [...]
--- OUTSIDE RECORDS SUMMARY | 2024-09-17 03:14 | XMS_ITS ---
Author Organization [facility] Address [address] [place] [address] Care Team Providers Care Taxicab Driver Name Role Phone Viola Mack MD Primary Care Provider Unavaila ble Black, Katharina Unavailable [phone] Allergies Allergen (clinical drug ingredient) Drug/Non Drug [...] injury of right foot stage I (disorder) (265030285520 102) Pressure injury of right foot, stage 1 (L89.891) Active confirmed Response to treatment,No napplicable Vital Signs Height 5ft 8in in 06/15/2024 Weight 265 lbs 06/15/2024 BMI 40.29 kg/m2 06/15/2024 Blood pressure systolic 148 mm Hg 06/15/20 24 Blood pressure diastolic 54 mm Hg 024 Procedures Procedure Date Ordered Date Performed Result Body Sit e 44961-ZXKKNOO NAIL, 6 OR MORE 06/15/2024 N/A 03950-Aibuxakf Plate 06/15/2024 N/A 64086- Debride <25 sq cm 06/15/2024 N/A Encounters Encounter Location Date Provider Diagnosis [facility] [place] [address] [place] [address] 06/15/2024 Katharina Black Tinea unguium B35.1 ; [...] INSTRUCTIONS.pdf) Pending Test Test Name Order Date 21808-WTPSHFR NAIL, 6 OR MORE 06/15/2024 45633-Hjnwbqwf Plate 06/15/2024 34397- Debride <25 sq cm 06/15/2024 Next Appt Details Follow Up: 6 Weeks, Reason: Provider Name:Katharina A Rj , 09/21/2024 11:30:00 AM, [address] [place] [address], [phone], Procedure Notes * Category Sub-Category Detail Notes [...] Motrin was recommended for pain or discomfort (74995) , Pt DEFERS matricectomy Anesthesia was accomplished [...] as necessary. Patient chooses, no pharmaceutical tx (08323) Debride skin< 25 sq cm Open wound [...] of the wound post debridement is stable (30851) Progress Notes * CHAOJENNRadha GUSTAFSON EDOB: (73 yo F)Acc No.[id number]:06/15/2024 Progress Note Patient:?Radha Blandon Provider:?Katharina De La Rosa DPM :1950???Age:73 Y???Sex:Female D ate:06/15/2024 Address:[address] [place], [place] [id number] Pcp:Viola Mack MD Subjective: * Chief Complaints: * ???Painful nail(s) aggrevate d by shoes causing difficulty standing/walkingOpen soreIngrown Nail * HPI: ???Painful Nails:?Pt States Last PCP Visit:?Date:?03/03/2024 ???Skin problems:?Treatments:?none.? * Medical History:? * Surgical History:?Lithotrips y 2019eye surgery, lenses 09/28 * Hospitalization/Major Diagno stic Procedure:?[facility] [place]- rapid heart rate 10/11/23 * Family [...] - L60.0? Plan: * Treatment: 2.?Tinea unguium?Procedure: 07109-ACNLVIX NAIL, 6 OR MORE 3.?Ingrown nail?Procedure: 45418-Pcfadmay Plate * Procedures:?Debride Nail 6-10:?Nail debridement?Nail debridement performed extensively to reduce/remove overall nail length, girth, thickness, subungual debris, and necrotic tissue, by manual and electrical means through the use of a nail nipper and/or dremel, to more viable healthy nail plate or bed tissue 1-5. Silver nitrate used for any petechial bleeding as necessary. Patient chooses, no pharmaceutical tx (47889).?Debride skin< 25 sq cm:?Open wound?Physician of record [...] of the wound post debridement is stable (39401).?Nail Avulsion:?Location?Lateral nail border , TA.?Anesthesia?was accomplished TOPICALLY [...] Motrin was recommended for pain or discomfort (56411) , Pt DEFERS matricectomy.? * Procedure Codes:?16758 DEBRI DE NAIL, 6 OR MORE, Modifiers: XS 49285 Avulsion Plate, Modifiers: [place] [address] ACTIVE WOUND CARE/20 CM OR <, Modifiers: [...] Rosa DPM Date:?2023 Generated for William ingram/Kaity/Javi on:?09/17/2024 03:14 AM EST History and Physical [...]
--- OUTSIDE RECORDS SUMMARY | 2024-09-17 03:15 | XMS_ITS | Patient Health Record ---
Author Organization [facility] Address [address] [facility] [place] [address] Care Team Providers Care Tugboat Engineer Name Role Phone Viola Mack MD Primary Care Provider Unavaila marc Black, Katharina Unavailable [phone] Allergies Allergen (clinical drug ingredient) Drug/Non Drug [...] primary osteoarthritis of the ankle and/or foot (755488139) Primary osteoarthrit is, left ankle and foot (M19.072) Active confirmed Problem Non-pressure ulcer lower limb (400403877) Non-pressure chronic ulcer of other part of right foot limited to breakdown of skin (L97.511) Active confirmed Problem Acquired hammer toe of right foot (6006106072054098 ) Other hammer toe(s) (acquired), right foot (M20.41) Active confirmed Problem Acquired hammer toe of left foot (9140019396939819 ) Other hammer toe(s) (acquired), left foot (M20.42) Active confirmed Problem Pressure injury of right foot stage I (disorder) (765837374960209) Pressure injury of right foot, stage 1 (L89.891) Active confirmed Response to treatment,N onapplicabl e Vital Signs Blood pressure diastolic 54 mm Hg 06/15/2024 Height 5ft 8in in 06/15/2024 Blood pressure systolic 148 mm Hg 06/15/2024 Weight 265 lbs 06/15/2024 BMI 40.29 kg/m2 06/15/2024 Procedures Procedure Date Ordered Date Performed Result Body Sit e 47873-AMWOEOW NAIL, 6 OR MORE 11/14/2023 N/A 52532-PYGBETI NAIL, 6 OR MORE 02/24/2024 N/A 27142-VRVSVGV NAIL, 6 OR MORE 06/15/2024 N/A 70915-Xmnsopit Plate 06/15/2024 N/A 22785- Debride <25 sq cm 06/15/2024 N/A Encounters Encounter Location Date Provider Diagnosis [address] [address] 10/10/2023 Katharina Black Pain in right foot M79.671 ; Hypertrophy of bone, right ankle and foot M89.371 ; Flat foot [pes planus] (acquired), right foot M21.41 ; Posterior tibial tendinitis, right leg M76.821 ; Stress fracture of metatarsal bone of right foot, initial encounter M84.374A and Lower extremity edema R60.[address] [address] 10/24/2023 Katharina Black Pain in right foot M79.671 ; Stress fracture of metatarsal bone of right foot with routine healing, subsequent encounter M84.374D ; Hypertrophy of bone, right ankle and foot M89.371 ; Flat foot [pes planus] (acquired), right foot M21.41 ; Posterior tibial tendinitis, right leg M76.821 and Lower extremity edema R60.[address] [address] 11/14/2023 Katharina Black Pain in right foot [...] and Pain in left toe(s) M79.[address] [facility] [address] 02/24/2024 Katharina Black Tinea unguium B35.1 ; Pain in right toe(s) M79.674 and Pain in left toe(s) M79.[address] [address] 06/15/2024 Katharina Black Tinea unguium B35.1 ; Pressure injury of right foot, stage 1 L89.891 ; Pain in right toe(s) M79.674 ; Pain in left toe(s) M79.675 and Ingrown nail L60.[address] [address] 10/01/2023 Katharina De La Rosa [address] [address] 10/11/2023 Katharinacynthia De La Rosa [address] [address] 10/28/2023 Katharina De La Rosa Assessments Encounter [...] Treatment Pending Test Test Name Order Date 88264-KAMPVXL NAIL, 6 OR MORE 08/07/2021 59410-ADXDHNU NAIL, 6 OR MORE 12/11/2021 61759-IZRUXFH NAIL, 6 OR MORE 04/16/2022 86752-QJTWGVE NAIL, 6 OR MORE 08/20/2022 67946-JHXRANS NAIL, 6 OR MORE 12/31/2022 31367-XIHNYTB NAIL, 6 OR MORE 05/06/2023 37568-YXPJKAU NAIL, 6 OR MORE 11/14/2023 29352-MLULOYR NAIL, 6 OR MORE 02/24/2024 14044-QCWDJXM NAIL, 6 OR MORE 06/15/2024 02611-Mnknzpkh Plate 05/06/2023 39169-Kheqwbky Plate 06/15/2024 84218-Upejoths Plate 12/31/2022 45128- Debride <25 sq cm 12/11/2021 77818- Debride <25 sq cm 05/06/2023 19852- Debride <25 sq cm 12/31/2022 51170- Debride <25 sq cm 08/20/2022 65603- Debride <25 sq cm 04/16/2022 72764- Debride <25 sq cm 09/04/2021 85285- Debride <25 sq cm 04/16/2018 28634- Debride <25 sq cm 05/25/2021 83371- Debride <25 sq cm 08/07/2021 67427- Debride <25 sq cm 06/15/2024 87345,Y2500-EHZ TENDON SHEATH/LIGAMENT 1 10/07/2020 89689,U1876-WTQ TENDON SHEATH/LIGAMENT 0 05/25/2021 32089,K9671-UKI TENDON SHEATH/LIGAMENT 1 11/04/2020 Next Appt Details Provider Name:Katharina A Rj , 09/21/2024 11:30:00 AM, [address] [place] [address], [place], [address], Insurance Providers Payer Name Payer Address Payer Phone Subscriber Number Group Number Insured Name Patient Relationship to Insured Coverage Start Date Coverage End Date [facility] [address] [place] [id number] Radha Blandon Self - patient is the insured Medical (General) History Medical History History ICD Code Anemia Anxiety disorder Arthritis Back,Hip,and Knee pain Chicken pox High blood pressure Kidney stones Measles Mumps Broken bones Sciatica A fib Surgical History Surgery Date(Month/Year) Lithotripsy 2019 eye surgery, lenses 09/28 Hospitalization History Reason Date(Month/Year) [facility] [place] 10/11/23
--- OUTSIDE RECORDS SUMMARY | 2024-09-17 03:15 | XMS_ITS ---
Author Organization [facility] Address [address] [place] [address] Care Team Providers Care Certified Genetic Counselor Name Role Phone Viola Mack MD Primary Care Provider Unavaila Katharina Lawrence [phone] Encounters Encounter Location Date Provider Diagnosis [address] [address] 12/02/2023 Katharina De La Rosa Plan Of Treatment Next Appt Details Provider Name:Katharina Beard Rj , 09/21/2024 11:30:00 AM, [address] [place] [address], [address], Progress Notes * Radha BLANDON EDOB: (74 yo F)Acc No.[id number]:12/02/2023 Progress Note Patient:?Radha BLANDON Provider:?Katharina De La Rosa DPM :1950???Age:73 Y???Sex:Female D ate:12/02/2023 Address:[address] [place] Pcp:Viola Mack MD Subjective: * Chief Complaints: [...]
== END 2024-09-16 17:03 | disposition left against medical advice (07) ==
LOC: HO.ED 17:04
PROVIDERS: Emergency Provider Emergency Medicine; PCP Internal Medicine
DX: R51.9 Headache, unspecified (principal); R20.2 Paresthesia of skin; Z53.21 Procedure and treatment not carried out due to patient leaving prior to being seen by health care provider
CPT/HCPCS: 99281

== ENCOUNTER 2024-11-28 12:13 | Emergency (ER) | payer OTHER, SELFPAY ==
--- NOTE | ~2024-11-28 | XR_ITS ---
CLINICAL HISTORY: injury, possible infection Radiographs of the left tibia/fibula, 2 views, 4 images Comparison: None Findings: No cortical destruction or periostitis to indicate osteomyelitis. No fracture or dislocation. Wewe-wo-vhzdujfi degenerative change. Bone mineralization is normal. Vascular and soft tissue calcifications. Soft tissue swelling. Impression: No radiographic evidence of osteomyelitis. Follow up if symptoms persist or worsen. This document has been electronically signed by: Cortney Goyal MD on 11/28/2024 13:26:25
[2024-11-28 12:30] VITALS: BP 146/46; PULSE 73; RESP 18; TEMP 36.7; O2SAT 96; BMI 41.7
--- NOTE | 2024-11-28 12:32 | ED_ITS ---
HPI - General Adult General Chief complaint: General Medical Stated complaint: Kee kendrick infected from cat scratch Time Seen by Provider: 11/28/24 16:16 Source: patient Mode of arrival: ambulatory Limitations: no limitations History of Present Illness ED Provider: Mary Miles NP HPI narrative: Patient is a 74-year-old female with past medical history of paroxysmal atrial fibrillation on Eliquis, hyperlipidemia, DJD, hypertension, anxiety, obesity, CKD, SHARIF who presents emergency department for evaluation. She reports 3 days ago she sustained a scratch from her cat, who is up-to-date on vaccinations, to the left lower anterior leg. She presented to urgent care today due to redness and swelling that is now extending up the lateral aspect of the anterior lower leg. She was referred to the emergency department for IV antibiotics. Patient is unaware of the date of her last tetanus vaccination. She does endorse localized pain to the area. She is able to walk without difficulty. She denies associated fevers or chills. Related Data Home Medications ?Medication ?Instructions ?Recorded ?Confirmed fluticasone propionate 50 1 spray intranasal BID PRN 08/09/20 09/10/24 mcg/actuation nasal congestion spray,suspension glucosamine sulfate 750 mg tablet 750 mg PO ONCE 08/09/20 09/10/24 multivitamin 1 tab PO DAILY 08/09/20 09/10/24 desonide 0.05 % topical ointment topical 11/28/23 09/10/24 Previous Rx's ?Medication ?Instructions ?Recorded furosemide 20 mg tablet 20 mg PO Q OTHER DAY #45 tabs 03/30/24 atenolol 50 mg tablet 50 mg PO DAILY #90 tabs 04/23/24 lorazepam 0.5 mg tablet 0.5 mg PO DAILY PRN anxiety #10 09/17/24 tabs amlodipine 5 mg tablet 5 mg PO DAILY #90 tabs 09/25/24 lisinopril 10 mg tablet 10 mg PO DAILY #90 tabs 11/06/24 apixaban 5 mg tablet (Eliquis) 5 mg PO BID #180 tabs 11/09/24 amoxicillin 875 mg-potassium 1 tab PO BID #14 tabs 11/28/24 clavulanate 125 mg tablet Allergies Allergy/AdvReac Type Severity Reaction Status Date / Time metoprolol Allergy Severe Rash Verified 11/28/24 12:33 doxycycline AdvReac Intermediate Abdominal Verified 11/28/24 12:33 Pain methylprednisolone AdvReac Intermediate rapid Verified 11/28/24 12:33 heart rate erythromycin base AdvReac Unknown upset Verified 11/28/24 12:33 stomach nausea Review of Systems 2 Review of Systems: Yes all other systems are reviewed and are negative [facility] Past Medical History Attestation statement: The following information was validated with the patient. Source: old records reviewed Medical History SHARIF (obstructive sleep apnea) Retrognathia Atrial fibrillation Chest pain Morbid obesity CKD (chronic kidney disease) stage 3, GFR 30-59 ml/min Hyperlipemia Annual physical exam Mammogram normal DJD (degenerative joint disease), lumbar Anxiety Overweight HTN (hypertension) Surgical History H/O bilateral cataract extraction H/O lithotripsy H/O colonoscopy Family History Family History Father No problems noted. Mother HTN (hypertension) Social History Social History Housing: House Alcohol intake: current Alcohol intake frequency: holidays/special occasions only Patient Tobacco Use Status: Never used Tobacco e-Cigarette/Vaping Use: Never Used Second Hand Smoke Exposure: No Advance Directives: No Advance Directives Information Provided: No Do you have a plan to hurt others: No Plan service: No Current occupational status: retired Cognitive needs: No Hearing needs: No Vision needs: Yes Physical Exam ED Vital Signs: Vital Signs - 24 hr 11/28/24 12:30 11/28/24 17:14 11/28/24 17:19 Temperature 98.1 F 98.4 F Pulse Rate 73 62 Respiratory Rate 18 15 Blood Pressure 146/46 H 144/59 H Pulse Oximetry 96 99 Oxygen Delivery Method Room Air Room Air BMI result Body Mass Index 41.7 Appearance: Alert.?Oriented to person, place and time. No acute distress.?Normal affect. Eyes: Pupils equal, round and reactive to light.? ENT: Pharynx normal.?? Neck: Normal inspection.? Neck supple.?? CVS: Heart sounds normal. Normal heart rate and rhythm.? Pulses normal.?? Respiratory: No respiratory distress.? Lung sounds clear to auscultation bilaterally?? Abdomen: Soft and non-tender. Normoactive bowel sounds. ?? Skin: Skin warm and dry.? Normal skin color.? Extremities: Left lower extremity erythema and warmth to touch, edema on L > R, just inferior to the anterior ankle is the initial scratch that she sustained, with open blister, active serous drainage, erythema extends up the lateral aspect of the leg with tenderness to touch. 2+ DP/PT pulse Neuro: Moves all extremities spontaneously. Sensation intact bilaterally. Ambulates with normal steady gait. Course Course Course Narrative: RME performed by Alisson Pearson PA-C. Patient is a 74 year old assigned female at presenting to the emergency department with left lower leg pain, swelling, and possible infection. Patient states that 3 days ago she was scratched by her cat on the left lower leg and ever since it has been more swollen and is concerned for infection. Patient was seen by the urgent care who recommended coming to the hospital. Detailed physical exam and review of systems are deferred to the primary education professor. Labs and imaging ordered. Patient placed back in the waiting room pending room availability and results. Medications Administered Discontinued Medications Generic Name Dose Route Start Last Admin Trade Name Freq PRN Reason Stop Dose Admin Diphtheria/Tetanus/Acell Pertussis 0.5 ml 11/28/24 12:34 11/28/24 17:47 Diphth,Pertus(Acell),Tet Adult 0.5 Ml Syringe IM 11/28/24 12:35 0.5 ml .ONCE ONE Administration Ampicillin Sodium/Sulbactam 100 mls @ 200 mls/hr 11/28/24 16:48 11/28/24 18:06 Sodium 3 gm/ Sodium Chloride IV 11/28/24 17:17 Infused ONCE ONE Infusion Medical Decision Making Medical Decision Making MDM Narrative: Patient is a 74-year-old female with past medical history of paroxysmal atrial fibrillation on Eliquis, hyperlipidemia, DJD, hypertension, anxiety, obesity, CKD, SHARIF presents to the emergency department for evaluation of cellulitis to the left lower extremity sustained from a cat scratch as per HPI. Has a up-to-date on vaccinations. Patient is not aware of her vaccination status for tetanus therefore this was updated today. There does not appear to be any apparent abscess. She is afebrile without tachycardia, has not yet been on oral antibiotics. No history of diabetes. She is anticoagulated, no active bleeding, compartments are soft. On review she has leukocytosis 13,200 with left shift, mild stable anemia that does not meet transfusion criteria. Notably elevated inflammatory markers with ESR of 58 and CRP 17 5. No FAUSTO. Renal function at baseline consistent with CKD. XR of the tib-fib does not show acute osseous involvement. Covered with 3g of Unasyn. She remains without signs of systemic toxicity. At this time feel that she would be able to be discharged home with trial of oral antibiotics, sent prescription for Augmentin to pharmacy, skin marked, reviewed strict return precautions, reasons that would warrant return for IV antibiotics. Patient verbalized understanding. Differential Diagnosis Differential Diagnoses: The differential diagnosis associated with the presentation includes (See narrative above) Admission/Observation Consideration of admission/observation: Escalation of care including admission/observation considered (See narrative above) Lab Data MDM Lab Attestation statement: I reviewed the patient's lab results. (See narrative above) 11/28/24 12:46 11/28/24 12:46 Labs: Lab Results 11/28/24 11/28/24 Range/Units 12:46 17:10 WBC 13.2 H (4.8-10.8) X10*3/uL RBC 3.62 L (4.20-5.50) X10*6/uL Hgb 11.6 L (12.0-16.0) g/dl Hct 35.5 L (37.0-47.0) % MCV 98.1 H (80.0-98.0) fL MCH 32.0 (27.0-33.0) pg MCHC 32.7 (31.0-35.0) g/dl RDW 14.2 (11.0-16.0) % Plt Count 231 (160-400) X10*3/uL MPV 9.8 (9.4-12.3) fL Immature Gran % (Auto) 0.4 (0.0-0.4) % Neut % (Auto) 82.0 H (45-73) % Lymph % (Auto) 7.6 L (20-40) % [place] % (Auto) 9.5 (2-11) % Eos % (Auto) 0.2 (0-4) % Baso % (Auto) 0.3 (0-2) % Lymph # (Auto) 1.0 L (1.2-4.9) X10*3/uL [place] # (Auto) 1.3 H (0.1-1.2) X10*3/uL Eos # (Auto) 0.0 (0.0-0.4) X10*3/uL Baso # (Auto) 0.0 (0.0-0.2) X10*3/uL Abs Immat Gran (auto) 0.05 H (0.00-0.03) X10*3/uL Absolute Neuts (auto) 10.8 H (2.0-8.3) x10*3/uL Absolute Nucleated RBC 0.000 (0.0-0.012) X10*3/uL Nucleated RBC % (auto) 0.0 (0.0-0.2) /100WBC ESR 58 H (0-20) MM/HR Sodium 138 (135-145) mmol/L Potassium 4.4 (3.3-5.1) mmol/L Chloride 108 (96-108) mmol/L Carbon Dioxide 21 L (22-29) mmol/L Anion Gap 13 (12-20) BUN 22 H (9-16) mg/dL Creatinine 1.29 (0.5-1.4) mg/dL Estim Creat Clear Calc 54.0 Estimated GFR 41 Random Glucose 104 (60-115) mg/dL Lactic Acid 1.0 (0.5-2.0) mmol/L Calcium 9.6 (8.4-10.2) mg/dL Magnesium 2.2 (1.6-2.6) mg/dL Total Bilirubin 0.5 (0.0-1.0) mg/dL AST 20 (5-31) U/L ALT 19 (0-31) U/L Alkaline Phosphatase 75 (39-117) U/L C-Reactive Protein 17.54 H (< or = 0.50) mg/dL Total Protein 7.4 (6.5-8.0) g/dL Albumin 3.8 (3.5-5.0) g/dL Independent Interpretation I performed an independent interpretation of an: Plain X-Ray (No acute osseous abnormality. No fracture) Radiology Impression Discussion of test interpretation with radiology: I have reviewed the radiologist's reading. Radiologist Impression: Impression: XR tib / fib 2 views No radiographic evidence of osteomyelitis. Follow up if symptoms persist or worsen. External Record Review External record reviewed: Outpatient record Chronic Conditions Patient?s care impacted by: Other (See narrative above) Discharge Plan Discharge Clinical Impression: Cellulitis of left lower extremity Patient Disposition: Home, Self-Care Instructions: Cellulitis (ED) Additional Instructions: As discussed, prescription for antibiotic has been sent to your pharmacy please complete the entire course, you may begin taking the oral antibiotics tomorrow as you received a dose of IV antibiotics in the emergency department today. The area on your skin was marked with a skin marker, if you notice significant spread past the areas March you should seek re-evaluation, if over the next day or so you notice a very small amount of spread this can be expected as the oral antibiotics are beginning to take effect. If you develop new or worsening symptoms or concerns you should seek re- evaluation emergency department this includes but is not limited to fevers, chills, worsening pain, swelling, inability to put weight on your left leg, numbness tingling or cold sensation to the foot. Arrange for outpatient follow-up with your primary care doctor. Prescriptions: New amoxicillin-pot clavulanate 875-125 mg tablet 1 tab PO BID Qty: 14 0RF No Action furosemide 20 mg tablet 20 mg PO Q OTHER DAY Qty: 45 1RF atenolol 50 mg tablet 50 mg PO DAILY Qty: 90 3RF Rx Instructions: dose correction lorazepam 0.5 mg tablet 0.5 mg PO DAILY PRN (Reason: anxiety) Qty: 10 0RF amlodipine 5 mg tablet 5 mg PO DAILY Qty: 90 1RF lisinopril 10 mg tablet 10 mg PO DAILY Qty: 90 3RF Eliquis 5 mg tablet 5 mg PO BID Qty: 180 3RF fluticasone propionate 50 mcg/actuation spray,suspension 1 spray intranasal BID PRN (Reason: congestion) glucosamine sulfate 750 mg tablet 750 mg PO ONCE Rx Instructions: administer with meals multivitamin Tablet 1 tab PO DAILY desonide 0.05 % ointment topical Referrals: Viola Mack MD [Primary Care Provider] - Print Language: Occitan
[2024-11-28 12:54] LABS: MANUAL DIFF FLAG NO
[2024-11-28 13:04] LABS: Basophils Percent Auto 0.3 % (0-2); Eosinophils Percent Auto 0.2 % (0-4); Hematocrit 35.5 % (37.0-47.0); Hemoglobin 11.6 g/dl (12.0-16.0); Imm Gran Abs Auto 0.05 X10*3/uL (0.00-0.03); Imm Gran Pct Auto 0.4 % (0.0-0.4); Lymphocytes Percent Auto 7.6 % (20-40); Mean Corpuscular HGB Conc 32.7 g/dl (31.0-35.0); Mean Corpuscular Volume 98.1 fL (80.0-98.0); Mean Platelet Volume 9.8 fL (9.4-12.3); Monocytes Absolute Auto 1.3 X10*3/uL (0.1-1.2); Monocytes Percent Auto 9.5 % (2-11); Neutrophils Absolute Auto 10.8 x10*3/uL (2.0-8.3); Platelet Count 231 X10*3/uL (160-400); Red Blood Count 3.62 X10*6/uL (4.20-5.50); Red Cell Distribution Width 14.2 % (11.0-16.0); White Blood Count 13.2 X10*3/uL (4.8-10.8)
[2024-11-28 13:15] LABS: Alanine Aminotransferase 19 U/L (0-31); Albumin Level 3.8 g/dL (3.5-5.0); Alkaline Phosphatase 75 U/L (39-117); Anion Gap 13 (12-20); Aspartate Amino Transferase 20 U/L (5-31); Bilirubin Total 0.5 mg/dL (0.0-1.0); Blood Urea Nitrogen 22 mg/dL (9-16); C Reactive Protein 17.54 mg/dL (< or = 0.50); Calcium 9.6 mg/dL (8.4-10.2); Carbon Dioxide 21 mmol/L (22-29); Chloride 108 mmol/L (96-108); Estimated Glomerular Filt Rate 41; Glucose Random 104 mg/dL (60-115); Magnesium 2.2 mg/dL (1.6-2.6); Potassium 4.4 mmol/L (3.3-5.1); Sodium 138 mmol/L (135-145); Total Protein 7.4 g/dL (6.5-8.0)
[2024-11-28 13:41] LABS: Erythrocyte Sedimentation Rate 58 MM/HR (0-20)
[2024-11-28 17:14] VITALS: BP 144/59; PULSE 62; RESP 15; O2SAT 99
[2024-11-28 17:19] VITALS: TEMP 36.9
[2024-11-28] MEDS: Ampicillin Sodium/Sulbactam Na 3 GM in 0.9 % Sodium Chloride 100 ML IV (17:37)
[2024-11-28] MEDS: Diphth,Pertus(ACell),Tet Adult 0.5 ML SYRINGE IM (17:47)
[2024-11-28 18:55] VITALS: BP 139/89; PULSE 84; RESP 20; TEMP 36.9; O2SAT 98
== END 2024-11-28 18:55 | disposition home or self-care (01) ==
PROVIDERS: Nurse Practitioner Family; Physician Assistant Medical; Emergency Provider Emergency Medicine; PCP Internal Medicine
DX: L03.116 Cellulitis of left lower limb (principal); S80.812D Abrasion, left lower leg, subsequent encounter; W55.03XD Scratched by cat, subsequent encounter; M79.662 Pain in left lower leg; Z23 Encounter for immunization
CPT/HCPCS: 36415; 73590; 80053; 83605; 83735; 85025; 85652; 86140; 87040; 90471; 90715; 96365; 99283; 99284; J0295

== ENCOUNTER → 2024-11-28 12:34 | Outpatient (BNV) | payer OTHER, SELFPAY | PROVIDERS: PCP Internal Medicine; Visit Provider Radiology Diagnostic Radiology | DX: S89.92XA Unspecified injury of left lower leg, initial encounter (principal) | CPT/HCPCS: 73590 ==

== ENCOUNTER 2024-11-30 08:15 | Outpatient (AMB) | payer OTHER, SELFPAY ==
--- OUTSIDE RECORDS SUMMARY | 2024-11-30 08:18 | XMS_ITS | Patient Health Record ---
Author Organization [facility] Address [address] [place] [address] Care Team Providers Care Spike Machine Heater Name Role Phone Viola Mack MD Primary Care Provider Unavaila marc Black, Katharina Unavailable [phone] Allergies Allergen (clinical drug ingredient) Drug/Non Drug Allergy documented on EMR Reaction Allergy Type Onset Date Status Biaxin Unknown Drug Allergy Active Doxycycline Calcium stomach upset Drug Allergy Active erythromycin Erythromycin Unknown Drug Allergy A ctive azithromycin Azithromycin Unknown Drug Allergy A ctive metoprolol Metoprolol rash Drug Allergy Activ e prednisone Prednisone rapid heart beat Drug Allergy Active Reason For Referral No Information Medications Medication SIG (Take, Route, Frequency, Duration) Notes Start Date End Date Status Walking Boot/Pneumatic As directed Wear Daily for Until further notice 10/10/2023 Not-Taking Atenolol Active Gabapentin 600 MG 1 tablet Orally Once a day for 30 day(s) Not-Taking Farxiga 5 MG 1 tablet Orally Once a day Not-Taking Glucosamine Sulfate 750 MG 1 capsule with a meal Orally Once a day Active Compression Stockings 20-30mm Hg 1 pair wear daily for 30 days Active amLODIPine Besylate 10 MG 5 mL Orally On ce a day for 30 days Active Aspirin 81 MG 1 tablet Orally Once a day Not-Taking Charis Allergy 180 MG 1 tablet Orally O nce a day for 30 day(s) Active hydrOXYzine HCl 25 MG 1 tablet as needed Orally every 8 hrs Not-Taking Eliquis Active Norvasc 10 MG 1 tablet Orally Once a day Not-Taking Medrol masha 4mg as directed orally a s directed for 6 days 10/10/2023 Not-Taking Tylenol PM Extra Strength 500-25 MG 1 tablet at bedtime as needed Orally Once a day Active Multivitamin Adult - Orally Active Lisinopril 10 MG 1 tablet Orally Once a day Active Immunizations Vaccine Route Administration Date Status Comme nts Influenza Unknown 08/07/2021 Refused COVID-19 Moderna Vaccine Unknown 12/29/2020 Administere d 1st 12/01/2020 Social History Tobacco Use: Social History Observation [...] primary osteoarthritis of the ankle and/or foot (091849281) Primary osteoarthrit is, left ankle and foot (M19.072) Active confirmed Problem Non-pressure ulcer lower limb (212500292) Non-pressure chronic ulcer of other part of right foot limited to breakdown of skin (L97.511) Active confirmed Problem Acquired hammer toe of right foot (6053860931663303 ) Other hammer toe(s) (acquired), right foot (M20.41) Active confirmed Problem Acquired hammer toe of left foot (3423328382722945 ) Other hammer toe(s) (acquired), left foot (M20.42) Active confirmed Problem Pressure injury of right foot stage I (disorder) (872559519389434) Pressure injury of right foot, stage 1 (L89.891) Active confirmed Response to treatment - Improvement Vital Signs Blood pressure diastolic 56 mm Hg 09/21/2024 Height 5ft8in in 09/21/2024 Blood pressure systolic 172 mm Hg 09/21/2024 Weight 265 lbs 09/21/2024 BMI 40.29 kg/m2 09/21/2024 Procedures Procedure Date Ordered Date Performed Result Body Sit e 98147-RUEGMAW NAIL, 6 OR MORE 02/24/2024 N/A 75991-SLCAZKZ NAIL, OR MORE 06/15/2024 N/A 82989-Hemgqepj Plate 06/15/2024 N/A 86365- Debride <25 sq cm 06/15/2024 N/A 96669-TCWMGJO NAIL, 6 OR MORE 09/21/2024 N/A 56752-Zxbrfeub Plate 09/21/2024 N/A 10786- Debride <25 sq cm 09/21/2024 N/A Encounters Encounter Location Date Provider Diagnosis [address] [address] 02/24/2024 Katharina Black Tinea unguium B35.1 ; Pain in right toe(s) M79.674 and Pain in left toe(s) M79.[address] [address] 06/15/2024 Katharina Black Tinea unguium B35.1 ; Pressure injury of right foot, stage 1 L89.891 ; Pain in right toe(s) M79.674 ; Pain in left toe(s) M79.675 and Ingrown nail L60.[address] [address] 09/21/2024 Katharina Black Pressure injury of right foot, stage 1 L89.891 ; Edema, lower extremity R60.0 ; Tinea unguium B35.1 ; Pain in right toe(s) M79.674 ; [...] CARE INSTRUCTIONS.p df (WOUND CARE INSTRUCTIONS.p df) 09/21/2024 Pressure injury of right foot, stage 1 (ICD-10 - L89.891) Response to treatment - Improvement Patient Educated with: WOUND CARE INSTRUCTIONS.p df (WOUND CARE INSTRUCTIONS.p df) 09/21/2024 Edema, lower extremity (ICD-10 - R60.0) 09/21/2024 Tinea unguium (ICD-10 - B35.1) 06/15/2024 Pain in right toe(s) (ICD-10 - M79.674) 02/24/2024 Pain in left toe(s) (ICD-10 - M79.675) 06/15/2024 Pain in left toe(s) (ICD-10 - M79.675) 09/21/2024 Pain in right toe(s) (ICD-10 - M79.674) 09/21/2024 Pain in left toe(s) (ICD-10 - M79.675) 06/15/2024 Ingrown nail (ICD-10 - L60.0) 09/21/2024 Ingrown nail (ICD-10 - L60.0) 06/15/2024 Other Plan Of Treatment Pending Test Test Name Order Date 53542-VWFSSAO NAIL, 6 OR MORE 08/07/2021 05928-SXYCXGA NAIL, 6 OR MORE 12/11/2021 77796-IEUJARJ NAIL, 6 OR MORE 04/16/2022 67370-ZLXUDUB NAIL, 6 OR MORE 08/20/2022 80648-KPPRWBA NAIL, 6 OR MORE 12/31/2022 60094-BQJPYFE NAIL, 6 OR MORE 05/06/2023 85739-VRQEUTE NAIL, 6 OR MORE 11/14/2023 91760-EKWGWQU NAIL, 6 OR MORE 02/24/2024 25728-PMVUUXU NAIL, 6 OR MORE 06/15/2024 00913-KDDPIMD NAIL, 6 OR MORE 09/21/2024 23959-Yqefutld Plate 09/21/2024 76401-Ejyrtqbd Plate 05/06/2023 93826-Jjjmuoui Plate 06/15/2024 00525-Vpqxwqrm Plate 12/31/2022 87650- Debride <25 sq cm 12/11/2021 94279- Debride <25 sq cm 05/06/2023 69071- Debride <25 sq cm 12/31/2022 70967- Debride <25 sq cm 08/20/2022 57338- Debride <25 sq cm 04/16/2022 41777- Debride <25 sq cm 09/04/2021 12751- Debride <25 sq cm 04/16/2018 72170- Debride <25 sq cm 05/25/2021 75632- Debride <25 sq cm 08/07/2021 85739- Debride <25 sq cm 09/21/2024 58124- Debride <25 sq cm 06/15/2024 26684,D8202-AGE TENDON SHEATH/LIGAMENT 1 10/07/2020 85481,K8735-UEA TENDON SHEATH/LIGAMENT 0 05/25/2021 65095,A3590-NLS TENDON SHEATH/LIGAMENT 1 11/04/2020 Next Appt Details Provider Name:Katharina De La Rosa , 12/28/2024 11:30:00 AM, [address] [place] [address], [phone], Insurance Providers Payer Name Payer Address Payer Phone Subscriber Number Group Number Insured Name Patient Relationship to Insured Coverage Start Date Coverage End Date [facility]) [address] [place], [place] [phone] [id number] [facility] Radha Blandon Self - patient is the insured Medical (General) History Medical History History ICD Code Anemia Anxiety disorder Arthritis Back,Hip,and Knee pain Chicken pox High blood pressure Kidney stones Measles Mumps Broken bones Sciatica A fib Surgical History Surgery Date(Month/Year) Lithotripsy 2019 eye surgery, lenses 09/28 Hospitalization History Reason Date(Month/Year) [facility]- rapid heart rate 10/11/23
--- OUTSIDE RECORDS SUMMARY | 2024-11-30 08:18 | XMS_ITS | Patient Health Record ---
Author Organization [facility] Address [address] [place] [address] Support Name Relationship Address Phone DEVORA DUBOSE Guarantor Unknown [phone] Reason For Referral No Information Medications Medication SIG (Take, Route, Fr equency, Duration) Notes Start Date End Date Status Fluconazole 50MG 5ML ORAL WEEKLY for 7 Cas-MJ 12/19/2011 Active Immunizations Vaccine Route Administration Date Status Comme nts Influenza, live, intranasal Intramuscular 12/19/2011 Pendi ng Problems Problem Type SNOMED Code ICD Code Onset Dates Problem Status W/U Status Risk Notes Problem Gynecological examination normal (876249822464782) Routine gynecological examination (V72.31) Active confirmed Diag Plan Of Treatment No Information Insurance Providers Payer Name Payer Address Payer Phone Subscriber Number Group Number Insured Name Patient Relationship to Insured Coverage Start Date Coverage End Date [facility] INDEMNITY PLAN [address] [place], [place] [id number] DEVORA DUBOSE Self - patient is the insured
--- OUTSIDE RECORDS SUMMARY | 2024-11-30 08:18 | XMS_ITS ---
Author Organization [facility] Address [address] [place] [address] Care Team Providers Care Storage Architect Name Role Phone iVola Mack MD Primary Care Provider Unavaila ble Black, Katharina Unavailable [phone] Allergies Allergen (clinical drug ingredient) Drug/Non Drug [...] Ordered Date Performed Result Body Sit e 01084-UQDFRLX NAIL, 6 OR MORE 02/24/2024 N/A Encounters Encounter Location Date Provider Diagnosis [facility] [address] [address] 02/24/2024 Katharina De La Rosa Tinea unguium [...] Treatment Pending Test Test Name Order Date [id number] NAIL, 6 OR MORE 02/24/2024 Next Appt Details Follow Up: prn, Reason: Provider Name:Katharina De La Rosa , 12/28/2024 11:30:00 AM, [address] [place] [address], [phone], Procedure Notes * Category Sub-Category Detail Notes [...] as necessary. Patient chooses, no pharmaceutical tx (38477) Progress Notes * Radha BLANDON EDOB: (73 yo F)Acc No.[id number]:02/24/2024 Progress Note Patient:?Radha Blandon Provider:?Katharina De La Rosa DPM :1950???Age:73 Y???Sex:Female D ate:02/24/2024 [address] [place], [place] [address] Pcp:Viola Mack MD Subjective: * Chief Complaints: [...] as necessary. Patient chooses, no pharmaceutical tx (41233).? * Procedure Codes:?78740 DEBRI DE NAIL, 6 OR MORE * Follow Up:?prn * Images: * Sign off status: Completed true * Provider:?Katharina De La Rosa DPM Date:?2023 Generated for William ingram/Kaity/Buditting on:?11/30/2024 08:18 AM EST History and Physical Notes * [...]
--- OUTSIDE RECORDS SUMMARY | 2024-11-30 08:19 | XMS_ITS | Clinical Summary ---
Author Organization [facility] Address [address] [place] [address] Care Team Providers Care Chemical Handler Name Role Phone Unavailable Primary Care Provider Unavailabl e Surgical History Surgery Date Site/Laterality Comments OTHER SURGICAL HISTORY 1999 PROCEDURE: DC ERCP DESTRUCTION/LITHOTRIPSY CALCULI ANY METHOD OTHER SURGICAL HISTORY 03/22 PROCEDURE: MAMMOGRAM COLONOSCOPY 01/07 PROCEDURE: DC COLONOSCOPY STOMA DX INCLUDING COLLJ SPEC SPX; COMMENT: [facility] COLONOSCOPY 02/11/2014 PROCEDURE: DC COLONOSCOPY FLX DX W/COLLJ SPEC WHEN PFRMD; COMMENT: normal Medical History Medical History Date Comments Calculus of kidney DX:Calculus o f kidney Dermatophytosis of nail 04/04/2006 DX:[place] tophytosis of nail Primary localized osteoarthr osis, lower leg 04/04/2006 DX:Primary localized osteoar throsis, lower leg Leiomyoma of uterus, unspecified 04/04/2006 DX:Leiomyoma of uterus, unspecified Plantar fascial fibromatosis 04/04/2006 DX: Plantar fascial fibromatosis Pneumonia, organism unspecified(486) 04/04/2006 DX:Pneumonia, organism unspecified(486) Candidiasis of vulva and vagina 04/30/2007 DX:Candidiasis of vulva and vagina; COMMENT: chronic, on chronic diflucan Bunion 04/30/2007 DX:Bunion; COMME NT: bilateral Allergic rhinitis 06/01/2010 DX:Allergic rh initis Anxiety 04/23/2016 DX:Anxiety Family History Medical History Relation Name Comments Hypertension Brother Other: Buergers disease Father Hypertension Mother PTCA , stroke, plasmacytoma, elevated cholesterol, gout, spinal stenosis Breast cancer Neg Hx Colon cancer Neg Hx Ovarian cancer Neg Hx Relation Name Status Comments Brother Father Mother Social History Tobacco Use Types Packs/Day Years Used Date Smoking Tobacco: Never Smokeless Tobacco: Never Alcohol Use Standard Drinks/Week Comments Yes 0 (1 standard drink = 0.6 oz pur e alcohol) Comments Unknown Sex and Gender Information Value Date Recorded Sex Assigned at Not on file Legal Sex Female 7:57 AM EST Gender Identity Not on file Sexual Orientation Not on file Obstetrics History Plan of Treatment Upcoming Encounters Date Type Department Care Team ([facility] st Contact Info) Description 05/19/2025 10:30 AM EDT Appointment Radiology Department [address] [address] Health Maintenance Due Date Last Done Comments Zoster Vaccines (2 of 3) 11/28/2011 10/03/2011 DTaP,Tdap,and Td Vaccines (2 - Td or Tdap) 09/21/2021 09/21/2011 Cholesterol Screening (Lipid Panel) 09/15/2022 Colorectal Cancer Screening: Colonoscopy 09/15/2022 Depression Screening 09/15/2022 Falls Risk Assessment 09/15/2022 Hepatitis C Screening 09/15/2022 Hypertension/CHF/CAD Annual BMP Blood Test 09/15/2022 Social Influencers of Health Screening 09/15/2022 COVID-19 Vaccine (1 - 2023- season) 2024 Influenza Vaccine (#1) 2024 Breast Cancer Screening 05/07/2026 05/07/20 24, 05/07/2024, 04/30/2023, Additional history exists RSV Immunization Patients 60+ Years Old (1 - 1-dose 75+ series) 2026 Osteoporosis Screening (Bone Density Screening) 01/02/2032 01/01/2017 Pneumococcal Vaccine: 50+ Years Completed 07/03/2018, 12/24/2016 HIB Vaccines Aged Out No longer eligi ble based on patient's age to complete this topic HPV Vaccines Aged Out No longer eligi ble based on patient's age to complete this topic Hepatitis A Vaccines Aged Out No long er eligible based on patient's age to complete this topic Hepatitis B Vaccines Aged Out No long er eligible based on patient's age to complete this topic IPV Vaccines Aged Out No longer eligi ble based on patient's age to complete this topic MMR Vaccines Aged Out No longer eligi ble based on patient's age to complete this topic Meningococcal ACWY Vaccine Aged Out N o longer eligible based on patient's age to complete this topic Meningococcal B Vacine Aged Out No lo nger eligible based on patient's age to complete this topic RSV Immunization Patients Under 20 months Aged Out No longer eligible based on patient's age to complete this topic Varicella Vaccines Aged Out No longer eligible based on patient's age to complete this topic Procedures Procedure Name Priority Date/Time Associated Diagnosis Comments SCREENING MAMMOGRAPHY BI 2-VIEW BREAST INC CAD Routine 05/07/2024 10:17 AM EDT Encounter for screening mammogram for malignant neoplasm of breast DXA BONE DENSITY STUDY 1+ SITS AXIAL SKEL Routine 01/01/2017 11:27 AM EDT Unspecified menopausal and perimenopausal disorder from Last 3 Months or Most Recently Relevant to Health Maintenance Results * SCREENING MAMMOGRAPHY BI 2-VIEW BREAST INC CAD (05/07/2024 10:17 AM EDT) Anatomical Region Laterality Modality Radiographic Lesley ging 04/30/2023 1:14 PM EDT Narrative 05/07/2024 11:27 AM EDT This is a summary report. The complete report is available in the patient's medical record. If you cannot access the medical record, please contact the sending organization for a detailed fax or copy. Full field digital screening to DC views and 3D tomosynthesis mammography, reviewed with CAD and compared to previous. The breasts are composed of fatty and fibroglandular tissue. ??No suspicious mass, architectural distortion or suspicious calcifications are identified. IMPRESSION: : No mammographic evidence of malignancy. BIRADS 1-Negative; N. 5 year breast cancer risk assessment 2.0 % Lifetime breast cancer risk assessment 5.1 % Breast cancer risk category Low (<15%) Procedure Note Kelly Ramos MD - 08/31/2024 This is a summary report. The complete report is available in thepatient's medical record. If you cannot access the medical record, pleasecontact the sending organization for a detailed fax or copy. Full field digital screening to DC views and 3D tomosynthesis mammography,reviewed with CAD and compared to previous. The breasts are composed offatty and fibroglandular tissue. No suspicious mass, architecturaldistortion or suspicious calcifications are identified. IMPRESSION: : No mammographic evidence of malignancy. BIRADS 1-Negative; N. 5 year breast cancer risk assessment 2.0 % Lifetime breast cancer risk assessment 5.1 % Breast cancer risk category Low (<15%) us Viola Mack MD IMG XR PROCEDURES Final Result * DXA BONE DENSITY STUDY 1+ SITS AXIAL SKEL (01/01/2017 11:27 AM EDT) Anatomical Region Laterality Modality Bone Densitometr y 12/24/2016 1:30 PM EDT Narrative 01/01/2017 2:56 PM EDT BONE DENSITY ? Lumbar Spine T-score is +3.4 ?? (SD relative to 20-29 y/o adult) Z-score is +5.2 ??(SD relative to age matched peers) This is normal by criteria defined by the WHO. Left Hip T-score is +1.1 Z-score is +2.6 This is normal by criteria defined by the WHO. Comparison exam(s): significant decrease in bone density of ??hip when compared to most recent bone density examination ?? Confidence level is +/-95%. Impression: Based on the World Health Organization criteria, Radha Blandon should be classified as having normal bone density. The [facility] Department of Internal Medicine recommends using National Osteoporosis Foundation (NOF) guidelines in treatment decisions related to osteoporosis. NOF guidelines suggest considering treatment for postmenopausal women and men aged 50 or older presenting with the following: History of hip or vertebral fracture. T-score less than or equal to -2.5 (DXA) at the femoral neck, total hip, or spine, after appropriate evaluation to exclude secondary causes. Low bone mass (T-score between -1.0 and -2.5 at the femoral neck or spine) AND a 10-year probability of a hip fracture greater than or equal to 3% OR a 10-year probability of a major osteoporosis-related fracture greater than or equal to 20% based on the [place]-adapted WHO algorithm Please note that all treatment decisions require clinical judgment and consideration of individual patient factors, including patient preferences, co-morbidities, previous drug use, risk factors not captured in the FRAX model (e.g., frailty, falls, vitamin D deficiency, increased bone turnover, interval significant decline in bone density) and possible under- or over-estimation of fracture risk by FRAX. Procedure Note Jack Levi MD - 11/08/2023 BONE DENSITY Lumbar Spine T-score is +3.4 (SD relative to 20-29 y/o adult) Z-score is +5.2 (SD relative to age matched peers) This is normal by criteria defined by the WHO. Left Hip T-score is +1.1 Z-score is +2.6 This is normal by criteria defined by the WHO. Comparison exam(s): significant decrease in bone density of hip whencompared to most recent bone density examination Confidence level is +/-95%. Impression: Based on the World Health Organization criteria, Radha Blandon should beclassified as having normal bone density. The [facility] Department of Internal Medicine recommendsusing National Osteoporosis Foundation (NOF) guidelines in treatmentdecisions related to osteoporosis. NOF guidelines suggest consideringtreatment for postmenopausal women and men aged 50 or older presentingwith the following: History of hip or vertebral fracture. T-score less than or equal to -2.5 (DXA) at the femoral neck, total hip,or spine, after appropriate evaluation to exclude secondary causes. Low bone mass (T-score between -1.0 and -2.5 at the femoral neck or spine)AND a 10-year probability of a hip fracture greater than or equal to 3% ORa 10-year probability of a major osteoporosis-related fracture greaterthan or equal to 20% based on the [place]-adapted WHO algorithm Please note that all treatment decisions require clinical judgment andconsideration of individual patient factors, including patientpreferences, co-morbidities, previous drug use, risk factors not capturedin the FRAX model (e.g., frailty, falls, vitamin D deficiency, increasedbone turnover, interval significant decline in bone density) and possibleunder- or over-estimation of fracture risk by FRAX. us Laureen Pillai MD IMG DXA PROCEDURES Final Result from Last 3 Months or Most Recently Relevant to Health Maintenance
--- OUTSIDE RECORDS SUMMARY | 2024-11-30 08:19 | XMS_ITS ---
[facility] Address [address] [address] Care Team Providers Care Logistics Supply Officer Name Role Phone Viola Mack MD Primary Care Provider Unavaila ble Black, Katharina Unavailable [phone] Allergies Allergen (clinical drug ingredient) Drug/Non Drug [...] injury of right foot stage I (disorder) ([id number] 4102) Pressure injury of right foot, stage 1 (L89.891) Active confirmed Response to treatment - Improvement Vital Signs Height 5ft 8in in 06/15/2024 Weight 265 lbs 06/15/2024 BMI 40.29 kg/m2 06/15/2024 Blood pressure systolic 148 mm Hg 06/15/20 24 Blood pressure diastolic 54 mm Hg 024 Procedures Procedure Date Ordered Date Performed Result Body Sit e 51757-YDASAMV NAIL, 6 OR MORE 06/15/2024 N/A 09257-Gmmppbrn Plate 06/15/2024 N/A 68064- Debride <25 sq cm 06/15/2024 N/A Encounters Encounter Location Date Provider Diagnosis [facility] [address] [place] [address] 06/15/2024 Katharina Black Tinea unguium B35.1 ; [...] INSTRUCTIONS.pdf) Pending Test Test Name Order Date 53981-PLDRYKL NAIL, 6 OR MORE 06/15/2024 11563-Csxjyeaf Plate 06/15/2024 64054- Debride <25 sq cm 06/15/2024 Next Appt Details Follow Up: 6 Weeks, Reason: Provider Name:Katharina Beard Rj , 12/28/2024 11:30:00 AM, [address] [place] [address], [id number], Procedure Notes * Category Sub-Category Detail Notes [...] Motrin was recommended for pain or discomfort (64765) , Pt DEFERS matricectomy Anesthesia was accomplished [...] as necessary. Patient chooses, no pharmaceutical tx (28007) Debride skin< 25 sq cm Open wound [...] of the wound post debridement is stable (87996) Progress Notes * CHAOJENNRadha GUSTAFSON EDOB: (73 yo F)Acc No.[id number]:06/15/2024 Progress Note Patient:?Radha Blandon Provider:?Katharina De La Rosa DPM :1950???Age:73 Y???Sex:Female D ate:06/15/2024 Address:[address] [place], [place] [id number] Pcp:Viola Mack MD Subjective: * Chief Complaints: * ???Painful nail(s) aggrevate d by shoes causing difficulty standing/walkingOpen soreIngrown Nail * HPI: ???Painful Nails:?Pt States Last PCP Visit:?Date:?03/03/2024 ???Skin problems:?Treatments:?none.? * Medical History:? * Surgical History:?Lithotrips y 2019eye surgery, lenses 09/28 * [place]/Major Diagno stic [place] [place] 10[place]11[place]23 [...] - L60.0? Plan: * Treatment: 2.?Tinea unguium?Procedure: 21490-JOVPFKB NAIL, 6 OR MORE 3.?Ingrown nail?Procedure: 51523-Szfsbpwb Plate * Procedures:?Debride Nail 6-10:?Nail debridement?Nail debridement performed extensively to reduce/remove overall nail length, girth, thickness, subungual debris, and necrotic tissue, by manual and electrical means through the use of a nail nipper and/or dremel, to more viable healthy nail plate or bed tissue 1-5. Silver nitrate used for any petechial bleeding as necessary. Patient chooses, no pharmaceutical tx (86385).?Debride skin< 25 sq cm:?Open wound?Physician of record [...] of the wound post debridement is stable (40297).?Nail Avulsion:?Location?Lateral nail border , TA.?Anesthesia?was accomplished TOPICALLY [...] Motrin was recommended for pain or discomfort (72314) , Pt DEFERS matricectomy.? * Procedure Codes:?75873 DEBRI DE NAIL, 6 OR MORE, Modifiers: XS 01265 Avulsion Plate, [place]: [place] [address] ACTIVE WOUND CARE/20 CM OR <, Modifiers: [...] Rosa DPM Date:?2023 Generated for William ingram/Kaity/Javi on:?11/30/2024 08:19 AM EST History and Physical Notes * [...]
--- OUTSIDE RECORDS SUMMARY | 2024-11-30 08:19 | XMS_ITS | Clinical Summary ---
Author Organization [facility] Address [address] [place] [address] Phone Care Team Providers Care Civil Technician Name Role Phone Viola Mack MD Primary Care Provider [phone] Allergies Active Allergy Reactions Criticality Noted Date Comments Azithromycin Other (see comments) 07/27/2024 Clarithromycin Other (see comments) 07/27/2024 Doxycycline GI intolerance 07/27/2024 Erythromycin Other (see comments) 01/23/2023 Metoprolol Rash Low 07/27/2024 Prednisone Palpitations Low 07/27/2024 Medications amLODIPine (NORVASC) 5 MG tablet Take 5 mg by mouth 1 (one) time each day 01/14/2023 Active diphenhydrAMINE HCl (ALLERGY MED PO) if needed 07/07/2021 Active lisinopril 10 MG tablet Take 10 mg by mouth 1 (one) time each day 11/25/2022 Active diphenhydrAMINE -acetaminophen (TYLENOL PM) 25-500 MG per tablet Take 1 tablet by mouth at night if needed for sleep Active apixaban (Eliquis) 5 MG tablet Take 5 mg by mouth in the morning and 5 mg in the evening. Active atenolol (TENORMIN) 50 MG tablet Take 50 mg by mouth 1 (one) time each day 01/20/2024 Active cholecalciferol (VITAMIN D-3) 25 MCG (1000 UT) tablet Take 1 tablet (1,000 Units total) by mouth 1 (one) time each day 30 tablet 11 01/21/2024 Active Active Problems Problem Noted Date Diagnosed Date Hypertension 07/22/2023 Localized edema 07/22/2023 Personal history of kidney stones 07/22/2023 Stage 3a chronic kidney disease 01/22/2023 Family History Medical History Relation Comments Hypertension Mother Relation Status Comments Father Mother Social History Tobacco Use Types Packs/Day Years Used Date Smoking Tobacco: Never Smokeless Tobacco: Never Tobacco Cessation:Counseling Given: Not Answered Alcohol Use Standard Drinks/Week Comments Yes 0 (1 standard drink = 0.6 oz pur e alcohol) rarely Comments Unknown Sex and Gender Information Value Date Recorded Sex Assigned at Female 07/20/2024 10:25 PM EDT Legal Sex Female 8:19 AM EST Gender Identity Female 07/20/2024 10:25 PM EDT Sexual Orientation Straight 07/20/2024 10 :25 PM EDT Last Filed Vital Signs Vital Sign Reading Time Taken Comments Blood Pressure 132/56 07/27/2024 10:20 AM EDT Pulse 66 07/27/2024 10:20 AM EDT Temperature - - Respiratory Rate - - Oxygen Saturation 97% 07/27/2024 10:20 AM EDT Inhaled Oxygen Concentration - - Weight 121 kg (266 lb 3.2 oz) 07/27/2024 10:20 A M EDT Height 175.3 cm (5' 9 ) 07/27/2024 10:20 AM EDT Body Mass Index 39.31 07/27/2024 10:20 AM EDT Plan of Treatment Upcoming Encounters Date Type Department Care Team (Late st Contact Info) Description 01/25/2025 10:00 AM EDT Office Visit [facility] [address] [phone] Justin Espitia MD [address] [address] Health Maintenance Due Date Last Done Comments Breast Cancer Screening 1950 Pneumococcal Vaccine: 65+ Ye ars (1 of 2 - PCV) 1957 Colorectal Cancer Screening: Annual FOBT 2000 Colorectal Cancer Screening: Colonoscopy 2000 Colorectal Cancer Screening: Sigmoidoscopy 2000 Influenza Vaccine (#1) 2024 Hepatitis B Vaccine Aged Out No longe r eligible based on patient's age to complete this topic Insurance [facility] [employer] Care Teams Civil Technician Relationship Specialty Start Date End Date Viola Mack MD [address] [place] [address] PCP - General Internal Medicine 08/21/22
--- OUTSIDE RECORDS SUMMARY | 2024-11-30 08:19 | XMS_ITS | Data Portability ---
Author Organization [place] - [facility], Allergy Address [address] [address] Care Team Providers Care Sales Promotion Director Name Role Phone SORIN SANDERSANNA Primary Care Provider Assessment Encounter Date Assessment Date Assessment LastModified by Organization Details LastModified Time 05/06/2024 05/06/2024 73-year-old female presents for reevaluation of bilateral ear pain. Otologic exam is unremarkable today with normal TM and well aerated middle ear space. She does have significant dental work but her teeth are in good repair. Significant crepitus and tenderness to bilateral TMJ with palpation. Reports pain with palpation. I do believe her otalgia is referred from her jaw. She should continue TMJ precaution and follow-up with her dentist regularly. If she has any new or worsening symptoms she will call for reevaluation. Otherwise follow-up as needed. [email or web address] Not available 05/06/2024 11:24:19 Plan of Treatment Reminders Order Date Submit Date Provider Last Modified By Organization Details Last Modified Time Details Appointments None record ed. Lab None record ed. Referral None record ed. Procedures None record ed. Surgeries None record ed. Imaging None record ed. Medication Orders None record ed. Patient TargetsNo targets recorded. Patient InstructionsNo instructions recorded. Reason for Referral None Reported. Results Created Date Observation Date Name Description Value Unit Range Abnormal Flag Note LastModifiedBy Organization Detail LastModifiedTime 05/27/20 24 01/05/2022 imagi ng/di agnos tic resul t No observ ation record ed. [email or web address] Not Available 22:10:30 05/27/2006/19/2023 imagi ng/di agnos tic resul t No observ ation record ed. [email or web address] Not Available 22:11:02 Result Notes None recorded. Problems Name Problem SNOMED Code Status Onset Date Resolution Date Notes Provider Name and Address Organization Details Recorded Time Otalgia of left ear 7137729928 Active 2020 Otalgia, left ear; Note: Date Diagnosed : 05/27/2021 2:03 PM (H92.02) Not Available [facility] 4 03:16:49 Bilateral earache 011897438 Active 2022 Otalgia, bilateral ; Note: Date Diagnosed : 06/19/2023 2:26 PM (H92.03) Not Available [facility] 4 03:16:50 Dizziness and giddiness 568750639 Active 2021 Dizziness and giddiness ; Note: Date Diagnosed : 03/27/2022 5:05 PM (R42) Not Available [facility] 4 03:16:49 Allergic rhinitis 82923210 Active 2021 Other allergic rhinitis; Note: Date Diagnosed : 03/27/2022 5:05 PM (J30.89) Not Available [facility] 4 03:16:49 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 Other specified disorders of temporoma ndibular joint; Note: Date Diagnosed : 05/27/2021 2:08 PM (M26.69) Not Available [facility] 4 03:16:50 Posterior rhinorrhe a 69944676 Active 2021 Postnasal drip; Note: Date Diagnosed : 06/27/2022 12:20 PM (R09.82) Not Available [facility] 4 03:16:50 Nasal congestio n 10733502 Active 2021 Nasal congestio n; Note: Date Diagnosed : 03/27/2022 5:05 PM (R09.81) Not Available [facility] 4 03:16:49 Benign paroxysma l positiona l vertigo 781559505 Active 2021 Benign paroxysma l vertigo, unspecifi ed ear; Note: Date Diagnosed : 03/27/2022 5:17 PM (H81.10) Not Available [facility] 4 03:16:50 Arthralgi a of temporoma ndibular joint 77778638 Active 2023 SAMUEL FONG PA-C [address] [place] [address],[place] [address], [facility] [place], [place], [address] , [place] - [facility] 4 11:24:38 Problem Notes None recorded. Procedures Surgical History Date Name Laterality Status Provider Name and Address Organization Details Recorded Time lithotripsy completed Cherry Roberts [place] - [facility] 05/06/2024 10:31:08 Imaging Results Imaging Date Name Status LastModified by Organiz [facility] Details LastModified Time 01/05/2022 imaging/diag nostic result completed Information not available 05/27/2024 22:10:30 06/19/2023 imaging/diag nostic result completed Information not available 05/27/2024 22:11:02 Procedure Notes None recorded. Medical Equipment None Reported. Allergies Allergen ID Allergen Name Allergen Category Reaction Reaction Severity Criticality Documentation Date Start Date Code Code System Note Provider Name and Address Organization Details Recorded Time 32420 erythromy omar medicatio n other Not available Not available 02/18/2024 4053 RxNorm React ion: Unkno wn; Not Available [facility] 4 00:48:36 Medications Name Sig Start Date Stop Date Status Note LastModified by Organization Details LastModified Time amoxicill in 500 mg capsule 05/06 completed Medicati on ID: [id number] B rand Name: amoxicil shameka Send Method: E-Prescr ibed Sub s Allowed: subs OK Speci al Instruct ion: TAKE 1 CAPSULE BY MOUTH THREE TIMES A DAY Medi cationGe nericNam e: amoxicil shameka Medi cation ID: [id number] B rand Name: amoxicil shameka Send Method: E-Prescr ibed Sub s Allowed: subs OK Speci al Instruct ion: TAKE 1 CAPSULE BY MOUTH THREE TIMES A DAY Medi cationGe nericNam e: amoxicil shameka Not Available Not Available Not Available gabapenti n 600 mg tablet active Medicati on ID: [id number] B rand Name: gabapent in Send Method: E-Prescr ibed Sub s Allowed: subs OK Speci al Instruct ion: TAKE 1 TABLET BY MOUTH 3 TIMES A DAY Medi cationGe nericNam e: gabapent in Not Available Not Available Not Available Saline Mist 0.65 % nasal spray aerosol INSTILL 2 SPRAYS INTO EACH NOSTRIL 4 TIMES A DAY NEEDED FOR DRY NASAL PASSAGES FOR 7 DAYS 05/06 completed Not Available Not Available Not Available fluconazo le 150 mg tablet TAKE 1 TABLET BY MOUTH EVERY DAY FOR 1 DAY 05/06 completed Not Available Not Available Not Available metoprolo l succinate ER 50 mg tablet,ex tended release 24 hr TAKE 1 TABLET BY MOUTH EVERY DAY 05/06 completed Not Available Not Available Not Available valacyclo vir 1 gram tablet active Medicati on ID: [id number] B rand Name: valacycl ovir Sen d Method: E-Prescr ibed Sub s Allowed: subs OK Speci al Instruct ion: TAKE 1 TABLET BY MOUTH 3 TIMES A DAY Medi cationGe nericNam e: valacycl ovir Not Available Not Available Not Available lisinopri l 20 mg tablet active Medicati on ID: [id number] B rand Name: lisinopr il Send Method: E-Prescr ibed Sub s Allowed: subs OK Medic ationGen ericName : lisinopr il Not Available Not Available Not Available prednison e 20 mg tablet TAKE 1 TABLET BY MOUTH TWICE A DAY FOR 3 DAYS 05/06 completed Not Available Not Available Not Available amlodipin e 5 mg tablet TAKE 1 TABLET BY MOUTH EVERY DAY active Not Available Not Available No t Available ketorolac 0.5 % eye drops INSTILL ONE DROP TO OPERATIV E EYE TWICE DAILY FOR 3 WEEKS STARTING AFTER EACH SURGERY 05/06 completed Not Available Not Available Not Available lorazepam 0.5 mg tablet TAKE 1 TABLET BY MOUTH DAILY NEEDED FOR ANXIETY 05/06 completed Not Available Not Available Not Available desonide 0.05 % topical ointment APPLY AFFECTED AREAS ON FACE/LIP S/ABDOME N/GROIN TWICE DAILY UP TO 1 WEEK BREAK 1 WEEK REPEAT NEED 05/06 completed Not Available Not Available Not Available ciproflox acin 0.3 % eye drops INSTILL 1 DROP IN LEFT EYE 4 TIMES A DAY DIRECTED 05/06 completed Not Available Not Available Not Available amlodipin e 10 mg tablet active Medicati on ID: [id number] B rand Name: amlodipi ne Send Method: E-Prescr ibed Sub s Allowed: subs OK Speci al Instruct ion: TAKE 1 TABLET BY MOUTH EVERY DAY Medi cationGe nericNam e: amlodipi ne Not Available Not Available Not Available cephalexi n 500 mg capsule TAKE 1 CAPSULE BY MOUTH TWICE A DAY FOR 10 DAYS 05/06 completed Not Available Not Available Not Available lisinopri l 10 mg tablet TAKE 1 TABLET BY MOUTH DAILY active Not Available Not Available No t Available mometason e 0.1 % topical ointment active Medicati on ID: [id number] B rand Name: mometaso ne Send Method: E-Prescr ibed Sub s Allowed: subs OK Speci al Instruct ion: PLEASE SEE ATTACHED FOR DETAILED DIRECTIO NS Medic ationGen ericName : mometaso ne Not Available Not Available Not Available furosemid e 20 mg tablet TAKE 1 TABLET BY MOUTH EVERY OTHER DAY active Not Available Not Available No t Available azelastin e 137 mcg (0.1 %) nasal spray Inhale 2 spray once a day as directed 2021 active Medicati on ID: [id number] B rand Name: azelasti ne Send Method: E-Prescr ibed Sub s Allowed: subs OK Medic ationGen ericName : azelasti ne Not Available Not Available Not Available methylpre dnisolone 4 mg tablets in a dose pack TAKE 6 TABLETS ON DAY 1 DIRECTED ON PACKAGE AND DECREASE BY 1 TAB EACH DAY FOR A TOTAL OF 6 DAYS 05/06 completed Not Available Not Available Not Available doxycycli ne hyclate 100 mg tablet TAKE 1 TABLET BY MOUTH TWICE A DAY FOR 10 DAYS 05/06 completed Not Available Not Available Not Available atenolol 50 mg tablet TAKE 1 TAB (50 MG) ORALLY DAILY active Not Available Not Available No t Available tobramyci n 0.3 %-dexamet hasone 0.1 % eye drops,brisa pension INSTILL 1 DROP INTO RIGHT EYE TWICE A DAY FOR 7 DAYS 05/06 completed Not Available Not Available Not Available hydrocort isone 1 % topical cream with perineal applicato r 05/06 completed Medicati on ID: [id number] B rand Name: hydrocor tisone S end Method: E-Prescr ibed Sub s Allowed: subs OK Speci al Instruct ion: APPLY TOPICALL Y 4 TIMES DAILY NEEDED M tomer nGeneric Name: torsten jeff n ID: [id number] B rand Name: torsten Mccoy end Method: E-Prescr ibed Sub s Allowed: subs OK Speci al Instruct ion: APPLY TOPICALL Y 4 TIMES DAILY NEEDED M tomer nGtranic Name: torsten whittington Not Available Not Available Not Available Euflexxa 10 mg/mL (mw 2.4-3.6 million) intra-art icular syringe active Not Available Not Available Not Available Eliquis 5 mg tablet TAKE 1 TABLET BY MOUTH TWICE A DAY active Not Available Not Available No t Available Farxiga 5 mg tablet TAKE 1 TABLET BY MOUTH DIALY 05/06 completed Not Available Not Available Not Available Vitals None Recorded Social History None recorded. Functional Status None recorded. Mental Status None recorded. Family History Nothing Reported. Medical History Condition Response Allergies/Hayfever Y Hypertension Y Gynecological HistoryNo gynecological history recorded. Obstetrics History GPAL:G 0 P 0 0 0 0 Past Encounters Encounter ID Performer Location Encounter Start Date Encounter Closed Date Diagnosis/Indication Diagnosis SNOMED-CT Code Diagnosis ICD10 Code Diagnosis Note [id number] LUIS STEEN MD [facility] [address] [address] 05/06/2024 10:20:40 05/06/2024 10:55:09 Bilateral earache 860802237 H92.03 Arthralgia of temporomandibular joint 14126908 M26.629 Health Concerns Section Related Observation LastModified by Organization Detai ls LastModified Time None Recorded Concern Status LastModified by Organization Details LastModified Time None Recorded Advance Directives Directive None Recorded Payers Encounter Date Sequence Insurance Name Policy Number Policy Gerard Covered Member ID Gerard Member ID Guarantor Name 05/06/2024 1 [facility] IN[facility]MN[facility]AN [facility] [id number] Radha Blandon [id number] Radha Blandon Notes Date Note Type Note Provider Name and Address Organization Details Recorded Time 05/06/2024 text/html 73-year-old fema le presents for reevaluation of bilateral ear pain. She has not been evaluated for this in the past and it was thought to be related to TMJ D. She does have a significant history of bruxism and has a mouthguard which she uses quite regularly. She has significant dental work and continues to follow with her dentist on a regular interval as well. Feels her hearing is excellent and has no drainage within the ears. LUIS PALACIO MD [address] [place] [address], [place], [address], [facility] - [facility] 05/06/2024 12:41:25 OBGyn Episode No OBEpisode recorded.
--- NOTE | 2024-11-30 08:24 | AM.OFFWIN_ITS ---
Intake Vital Signs 3 11/30/24 08:25 Weight 278 lb BP 124/80 Blood Pressure Location Lt brachial Position Sitting Pulse 65 Pulse Source Pulse Oximeter Temp 97.7 F Temp Source Oral Pulse Oximetry (%) 99 Oxygen Delivery Method Room Air Intake Visit Reasons: EP Bottom LT foot infection? Intake Note: Patient here for cat scratch that she was treated with IV antibiotics on saturday and was told that if the redness spreads she needs more antibiotics. Patient Tobacco Use Status: Never used Tobacco Allergies metoprolol Allergy (Severe, Verified 11/30/24 08:31) Rash doxycycline Adverse Reaction (Intermediate, Verified 11/30/24 08:31) Abdominal Pain methylprednisolone Adverse Reaction (Intermediate, Verified 11/30/24 08:31) rapid heart rate erythromycin base Adverse Reaction (Unknown, Verified 11/30/24 08:31) upset stomach nausea Do you need a note to return to daycare/school/sports/work: No HPI HPI Comments 2 History of Present Illness0 Details 74 y/o female patient who presents to [facility] walk in clinic for a f/u after sustaining a Cat Scratch 11/25. She was evaluated and treated at [facility] 11/28 - she was given Ampicillin IV Abx and Discharged home on Augmentin PO antibiotics for 7 days. She has only taken two pills yesterday, has not taken any this morning. Pt wants to make sure the infection was getting better and not spreading. She does report TTP, burning and skin tightness. Denies fevers, chills, nausea or vomiting. [facility] Medical History SHARIF (obstructive sleep apnea) Retrognathia Atrial fibrillation Chest pain Morbid obesity CKD (chronic kidney disease) stage 3, GFR 30-59 ml/min Hyperlipemia Annual physical exam Mammogram normal DJD (degenerative joint disease), lumbar Anxiety Overweight HTN (hypertension) Surgical History H/O bilateral cataract extraction H/O lithotripsy H/O colonoscopy Family History Father No problems noted. Mother HTN (hypertension) Social History Housing: House Alcohol intake: current Alcohol intake frequency: holidays/special occasions only Patient Tobacco Use Status: Never used Tobacco e-Cigarette/Vaping Use: Never Used Second Hand Smoke Exposure: No service: No Current occupational status: retired Cognitive needs: No Hearing needs: No Vision needs: Yes Review of Systems Const All systems reviewed & are unremarkable except as noted in HPI and below Physical Exam Vital Signs: Last Vital Signs Temp 97.7 F 11/30/24 08:25 Pulse 65 11/30/24 08:25 BP 124/80 11/30/24 08:25 Pulse Ox 99 11/30/24 08:25 Oxygen Delivery Method Room Air 11/30/24 08:25 Const General: cooperative and no acute distress Nutritional Appearance: obese morbidly obese Orientation/consciousness: patient oriented x3 Resp Effort & Inspection: normal respiratory effort Cardio Heart sounds: S1 normal heart sound present and S2 normal heart sound present Neuro General: patient oriented x3 Extrem Left lower extremity: full ROM and lower leg Details: erythema Location: of the proximal lower leg, of the mid lower leg and of the distal lower leg, tenderness Location: of the posterior calf, of the proximal tibia, of the proximal fibula, of the midshaft tibia, of the midshaft fibula, of the distal tibia and of the distal fibula, non-pitting edema Details: 2+ and warmth; no crepitus Ankle/foot/toe images: 2 1. Erythema extends up the lateral aspect of the leg with tenderness to touch. Assessment & Plan Assessment & Plan (1) Cellulitis of skin: Code(s): L03.90 - Cellulitis, unspecified Plan: Continue Abx as prescribed If no improvement or worse in 72 hours to RTC or ED for prob more IV Abx. Coding Level of Care Code Est Pt Level 4 (08066) Diagnoses Cellulitis of skin L03.90 Time Spent (min) 20
[2024-11-30 08:25] VITALS: BP 124/80; PULSE 65; TEMP 36.5; O2SAT 99
== END 2024-11-30 09:02 | disposition home or self-care (01) ==
PROVIDERS: PCP Internal Medicine; Visit Provider Nurse Practitioner Family
DX: L03.90 Cellulitis, unspecified (principal)

== ENCOUNTER → 2024-11-30 08:15 | Outpatient (BNVA) | payer OTHER, SELFPAY | PROVIDERS: PCP Internal Medicine ==

== ENCOUNTER 2024-12-02 13:55 | Outpatient (AMB) | payer OTHER, SELFPAY ==
[2024-12-02 14:45] VITALS: BP 126/60; PULSE 68; TEMP 36.6; O2SAT 98; BMI 42.4
--- NOTE | 2024-12-02 14:45 | A.OFFPC_ITS ---
Vital Signs 12/02/24 14:45 Height 5 ft 8 in Weight 279 lb BMI 42.4 BP 126/60 Blood Pressure Location Lt brachial Position Sitting Pulse 68 Pulse Source Pulse Oximeter Temp 97.9 F Temp Source Oral Pulse Oximetry (%) 98 Oxygen Delivery Method Room Air Intake Visit Reasons: ER follow up Intake Note: Pt is here today for ER follow up visit. Pt went to ER due to cat scratch. Allergies metoprolol Allergy (Severe, Verified 12/02/24 14:48) Rash doxycycline Adverse Reaction (Intermediate, Verified 12/02/24 14:48) Abdominal Pain methylprednisolone Adverse Reaction (Intermediate, Verified 12/02/24 14:48) rapid heart rate erythromycin base Adverse Reaction (Unknown, Verified 12/02/24 14:48) upset stomach nausea Tobacco use date assessed: 12/02/24 Fall risk assessment: No Falls in past year Last assessed Fall Risk: 12/02/24 Dental Screening Dental Screen Date: 12/02/24 Did you have a dental visit in the last 12 months?: Yes Did you have a dental problem in the last 6 months where you did not have access to dental care?: No Was dental information given to patient?: Patient has dentist HPI ER follow up HPI Details Patient presents with a follow-up of left lower extremity cellulitis after patient sustained a cat scratch 5 days ago. She was seen in the ER 3 days ago receive a dose of Unasyn and was discharged home on Augmentin. Patient repo rts slight improvement of the pain but left calf is still swollen and erythematous. Patient noticed a small superficial ulcer with either drainage. She denies fever chills nausea vomiting. Patient has not been taking furosemide regularly for chronic lower extremity edema because it causes lightheaded. [facility] Medical History SHARIF (obstructive sleep apnea) Retrognathia Atrial fibrillation Chest pain Morbid obesity CKD (chronic kidney disease) stage 3, GFR 30-59 ml/min Hyperlipemia Annual physical exam Mammogram normal DJD (degenerative joint disease), lumbar Anxiety Overweight HTN (hypertension) Surgical History H/O bilateral cataract extraction H/O lithotripsy H/O colonoscopy Family History Father No problems noted. Mother HTN (hypertension) Social History Housing: House Alcohol intake: current Alcohol intake frequency: holidays/special occasions only Patient Tobacco Use Status: Never used Tobacco e-Cigarette/Vaping Use: Never Used Second Hand Smoke Exposure: No service: No Current occupational status: retired Cognitive needs: No Hearing needs: No Vision needs: Yes Questionnaire Thrive Questionnaire Date Thrive assessed: 12/02/24 I am a: Patient What is your living situation today?: I have a steady place to live Within the past 12 months, did the food you bought not last and you didn't have the money to get more?: Never true Within the past 12 months, did you worry whether your food would run out before you got money to buy more?: Never true Do you have trouble paying for medicines?: No Do you have trouble getting transportation to medical appointments?: No Do you have trouble paying your heating and electricity bill?: No Do you have trouble taking care of your child, family member or friend?: No Do you have trouble with day-to-day activities such as bathing, preparing meals, shopping, managing finances, etc.?: No Are you currently unemployed and looking for a job?: No Are you interested in more education?: No Please select the resources that you would like help with: None Currently or been in a relationship where the following occur: No concerns reported THRIVE Score: 0 AUDIT C Alcohol Use Questionnaire (AUDIT-C) 1. How often do you have a drink containing alcohol?: Never 3. How often do you have six or more drinks on one occasion?: Never Total Score: 0 HANNA-7 AMB Questionnaire HANNA-7 Date HANNA - 7 assessed: 09/10/24 Source: Developed by Drs. Gopi Baker, Stefani Doyle, Alfonso Carey and colleagues, with an educational jeancarlos from [employer]. Review of Systems Const All systems reviewed & are unremarkable except as noted in HPI and below Eyes Reports no additional complaints ENT Reports no additional complaints Card Reports no additional complaints Resp Reports no additional complaints GI Reports no additional complaints Reports no additional complaints Physical exam (Primary Care) Vital Signs: Last Vital Signs Temp 97.9 F 12/02/24 14:45 Pulse 68 12/02/24 14:45 BP 126/60 12/02/24 14:45 Pulse Ox 98 12/02/24 14:45 Oxygen Delivery Method Room Air 12/02/24 14:45 BMI result Body Mass Index 42.4 Tobacco/Smoking Status: Tobacco use Status Tobacco use date assessed 12/02/24 12/02/24 14:51 Patient Tobacco Use Status Never used Tobacco 12/02/24 14:51 e-Cigarette/Vaping Use Never Used 12/02/24 14:45 Thrive Assessment: Date of Thrive Assessment Date Thrive assessed 12/02/24 12/02/24 14:45 Currently or been in a relationship where the following occur: No concerns reported Const General: no acute distress HENMT Head: Yes normal to inspection Eyes General: appearance normal, both eyes and all related structures Resp Effort & Inspection: normal respiratory effort Auscultation: clear to auscultation bilaterally Cardio Rhythm: regular rhythm Heart sounds: S1 normal heart sound present and S2 normal heart sound present GI Palpation (GI): Soft to palpation Extrem Other: There is pinkish discoloration of left lower distal extremity with a 2 cm round superficial ulcer without discharge, with surrounding erythema warmth to the t ouch Coding Level of Care Code Est Pt Level 3 (80851) Diagnoses Cellulitis of left lower extremity L03.116 Edema R60.9 Assessment & Plan Assessment & Plan (1) Cellulitis of left lower extremity: Code(s): L03.116 - Cellulitis of left lower limb Category: Medical Plan: Continue Augmentin, patient was advised to elevate lower extremities at least twice a day for 30 minutes and restart furosemide 40 mg daily for 3 days (2) Edema: Comment: Chronic lower extremities edema due to venous stasis AND POSSIBLE ASSOCIATED LYMPHEDEMA. Code(s): R60.9 - Edema, unspecified Category: Medical Plan: Patient will restart furosemide 40 mg daily and will hold amlodipine because of borderline low blood pressure while on furosemide. Follow-up in 3 days
--- OUTSIDE RECORDS SUMMARY | 2024-12-02 17:08 | XMS_ITS | Clinical Summary ---
Author Organization [facility] Address [address] [place] [address] Phone Care Team Providers Care Barrel Drum Cutter Name Role Phone Viola Mack MD Primary Care Provider [phone] Allergies Active Allergy Reactions Criticality Noted Date [...] Visit [facility] [address] [phone] Justin Espitia MD [address] [phone] Health Maintenance Due Date Last Done Comments Breast Cancer Screening 1950 Pneumococcal Vaccine: 65+ Ye ars (1 of 2 - PCV) 1957 Colorectal Cancer Screening: Annual FOBT 2000 Colorectal Cancer Screening: Colonoscopy 2000 Colorectal Cancer Screening: Sigmoidoscopy 2000 Influenza Vaccine (#1) 2024 Hepatitis B Vaccine Aged Out No longe r eligible based on patient's age to complete this topic Insurance [facility] Care Teams Barrel Drum Cutter Relationship Specialty Start Date End Date Viola Mack MD 1960 [employer] [place] [address] PCP - General Internal Medicine 08/21/22
--- OUTSIDE RECORDS SUMMARY | 2024-12-02 17:08 | XMS_ITS | Data Portability ---
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 Plan of Treatment Reminders Order Date Submit Date Provider Last Modified By Organization Details Last Modified Time Details Appointments RECHECK 15 2024 01:15P M Narda Soriano PA-C Not available Not available Not available INJECTION ONLY 15 2024 02:00P M Narda Soriano PA-C Not available Not available Not available Lab None recorded. Referral None recorded. Procedures None recorded. Surgeries None recorded. Imaging None recorded. Medication Orders None recorded. Patient TargetsNo targets recorded. Patient Instructions Encounter Date Encounter Id Patient Instructions Last Modified By Organization Details Last Modified Time 04/28/2024 [id number] You have been provided with a viscosupplementation injection in order to reduce the pain that you are experiencing from your arthritis. The injection consists of a lubricating injection called hyaluronic acid. Please note that not everyone will have a lasting response following the injection. PATIENT INSTRUCTIONS I recommend icing the affected area for 20 minutes 3-4 times per day. It is recommended that you refrain from any high level activities using the joint or limb that was injected for approximately 24-48 hours. Normal day-to-day activities are generally not a problem. POSSIBLE SIDE EFFECTS Individuals with dark complexions may experience some skin discoloration locally at the site of the injection. There is the possibility of an increase in discomfort within 48 hours following the injection. This is called a ? flare? . To help minimize the chances of this, please see the post-injection instructions above. There is a less than 1% chance of an infection. If you notice any signs of infection (redness, warmth, drainage, fever greater than 100 degrees) please call our office or contact us through the portal KELVIN. jose guadalupe Not available 04/28/2024 10:49:53 Reason for Referral None Reported. Results Created Date Observation Date Name Description Value Unit Range Abnormal Flag Note LastModifiedBy Organization Detail LastModifiedTime 06/06/20 24 06/01/2022 imagi ng/di agnos tic resul t No observ ation record ed. [email or web address] Not Available 05/09 00:49:24 06/06/20 24 06/01/2022 imagi ng/di agnos tic resul t No observ ation record ed. [email or web address] Not Available 05/09 00:49:25 Result Notes None recorded. Problems Name Problem SNOMED Code Status Onset Date Resolution Date Notes Provider Name and Address Organization Details Recorded Time Primary gonarthrosi s, bilateral 125554776 Active 2023 DEVANTE chin [place] [facility] 4 10:34:00 Localized, primary osteoarthri tis of the shoulder region 335021521 Active 2023 Narda Soriano PA-C [address], [place], [address], [facility] 4 10:24:07 Impingement syndrome of right shoulder region 0628831477403 02 Active 2023 Narda Soriano PA-C [address], [place], [address], [facility] 4 10:24:09 Pain of right knee joint 7660794438324 00 Active [address] chin [facility] 4 09:29:53 Osteoarthri tis of right knee joint 7718248176408 00 Active 2023 Garry Martin PA-C [address], [place], [address], [facility] 4 10:09:29 Bilateral osteoarthri tis of knees 5953423449265 07 Active 2023 Garry Martin PA-C [address], [place], [address], [facility] 4 09:17:33 Problem Notes None recorded. Procedures Surgical History Date Name Laterality Status Provider Name and Address Organization Details Recorded Time 5 Sports Shoulder completed ALEXANDRIA MccraryC [address], [place], [address], [facility] 10/15/2024 13:19:53 4 Knee Kenalog 40 1cc Injection, Bilateral completed ALEXANDRIA MccraryC [address], [place], [address], [facility] 09/12/2024 10:34:44 4 Sports Shoulder completed Narda Soriano PA-C [address], [place], [address], [facility] 07/13/2024 21:38:39 4 Knee Kenalog 40 1cc Injection, Bilateral completed ALEXANDRIA MccraryC [address], [place], [address], [facility] 06/16/2024 13:21:02 4 Euflexxa Knee Injection Nirmal completed ALEXANDRIA MccraryC [address], [place], [address], [facility] 04/27/2024 18:02:29 4 Euflexxa Knee Injection Nirmal completed ROSARIO Mccrary-C [address], [place], [address], [facility] 04/23/2024 11:58:09 4 Sports Shoulder completed ROSARIO Mccrary-C [address], [place], [address], [facility] 04/13/2024 19:00:56 4 Euflexxa Knee Injection Nirmal completed Narda Soriano PA-C [address], [place], [address], [facility] 04/14/2024 16:13:26 4 Sports Shoulder completed Narda Soriano PA-C [address], [place], [address], [facility] 01/12/2024 10:23:36 4 JZKNEE INJ completed Garry Martin PA-C [address], [place], [address], [facility] 01/15/2024 10:09:23 Other completed Yaima Seaman [facility] 07/14/2024 11:11:46 Imaging Results Imaging Date Name Status LastModified by Organiz ation Details LastModified Time 06/01/2022 imaging/diag nostic result completed Information not available 06/06/2024 00:49:24 06/01/2022 imaging/diag nostic result completed Information not available 06/06/2024 00:49:25 Procedure Notes None recorded. Medical Equipment None Reported. Allergies Allergen ID Allergen Name Allergen Category Reaction Reaction Severity Criticality Documentation Date Start Date Code Code System Note Provider Name and Address Organization Details Recorded Time 642040 prednison e medicatio n Not available Not available Not available 10/15/2024 8640 RxNorm Adelaide chin, [facility] 5 13:01:48 12678 erythromy omar medicatio n Not available Not available Not available 12/09/20232022 4053 RxNorm Not Available [facility] 12:44:49 Medications Name Sig Start Date Stop Date Status Note LastModified by Organization Details LastModified Time Prescriptio n - Prior Authorizati on Request active Not Available Not Available N ot Available Saline Mist 0.65 % nasal spray aerosol INSTILL 2 SPRAYS INTO EACH NOSTRIL 4 TIMES A DAY NEEDED FOR DRY NASAL PASSAGES FOR 7 DAYS 01/14 completed Not Available Not Available Not Available fluconazole 150 mg tablet TAKE 1 TABLET BY MOUTH EVERY DAY FOR 1 DAY active Not Available Not Available No t Available metoprolol succinate ER 50 mg tablet,exte nded release 24 hr TAKE 1 TABLET BY MOUTH EVERY DAY 01/14 completed Not Available Not Available Not Available prednisone 20 mg tablet TAKE 1 TABLET BY MOUTH TWICE A DAY FOR 3 DAYS 01/14 completed Not Available Not Available Not Available atenolol 25 mg tablet 07/09 completed Not Available Not Available Not Available amlodipine 5 mg tablet TAKE 1 TABLET BY MOUTH DAILY active Not Available Not Available No t Available ketorolac 0.5 % eye drops INSTILL ONE DROP TO OPERATIVE EYE TWICE DAILY FOR 3 WEEKS STARTING AFTER EACH SURGERY 01/14 completed Not Available Not Available Not Available lorazepam 0.5 mg tablet TAKE 1 TABLET BY MOUTH EVERY DAY NEEDED FOR ANXIETY active Not Available Not Available No t Available desonide 0.05 % topical ointment APPLY AFFECTED AREAS ON FACE/LIPS /ABDOMEN/ GROIN TWICE DAILY UP TO 1 WEEK BREAK 1 WEEK REPEAT NEED active Not Available Not Available No t Available ciprofloxac in 0.3 % eye drops INSTILL 1 DROP IN LEFT EYE 4 TIMES A DAY DIRECTED 01/14 completed Not Available Not Available Not Available cephalexin 500 mg capsule TAKE 1 CAPSULE BY MOUTH TWICE A DAY FOR 10 DAYS 10/15 completed Not Available Not Available Not Available lisinopril 10 mg tablet TAKE 1 TABLET BY MOUTH DAILY active Not Available Not Available No t Available furosemide 20 mg tablet TAKE 1 TABLET BY MOUTH EVERY OTHER DAY active Not Available Not Available No t Available methylpredn isolone 4 mg tablets in a dose pack TAKE 6 TABLETS ON DAY 1 DIRECTED ON PACKAGE AND DECREASE BY 1 TAB EACH DAY FOR A TOTAL OF 6 DAYS 01/14 completed Not Available Not Available Not Available ketoconazol e 2 % topical cream APPLY TOPICALLY ONCE DAILY 01/14 completed Not Available Not Available Not Available doxycycline hyclate 100 mg tablet TAKE 1 TABLET BY MOUTH TWICE A DAY FOR 10 DAYS 02/25 completed Not Available Not Available Not Available atenolol 50 mg tablet TAKE 1 TAB (50 MG) ORALLY DAILY active Not Available Not Available No t Available tobramycin 0.3 %-dexametha sone 0.1 % eye drops,suspe nsion INSTILL 1 DROP INTO RIGHT EYE TWICE A DAY FOR 7 DAYS 01/14 completed Not Available Not Available Not Available Euflexxa 10 mg/mL (mw 2.4-3.6 million) intra-artic ular syringe 2023 active Not Available Not Available Not Avai lable GaviLyte-G 236 gram-22.74 gram-6.74 gram-5.86 gram oral solution PLEASE SEE ATTACHED FOR DETAILED DIRECTION S 01/14 completed Not Available Not Available Not Available Eliquis 5 mg tablet TAKE 1 TABLET BY MOUTH TWICE A DAY active Not Available Not Available No t Available Farxiga 5 mg tablet TAKE 1 TABLET BY MOUTH DIALY 01/14 completed Not Available Not Available Not Available Zilretta 32 mg intra-artic ular suspension, extended release active Not Available Not Available Not Available Flowflex COVID-19 Antigen Home Test kit FOLLOW INSTRUCTI ONS INCLUDED WITH THE PACKAGE. 01/14 completed Not Available Not Available Not Available Vitals Date Recorded Body height Body mass index (BMI) Body weight Provider Name and Address Organization Details Last Updated DateTime 04/28/2024 175.26 cm 39.1 kg/m2 350547.98 g Don Lynn [facility] 04/28/2024 10:25:40 Date Recorded Body height Body mass index (BMI) Body weight Provider Name and Address Organization Details Last Updated DateTime 06/19/2024 170.18 cm 42.1 kg/m2 665086.35 g AYIMA MEADOWS [facility] 06/19/2024 14:27:19 Date Recorded Body height Body mass index (BMI) Body weight Provider Name and Address Organization Details Last Updated DateTime 07/14/2024 170.18 cm 42.1 kg/m2 657117.35 g Yaima Seaman [facility] 07/14/2024 11:12:14 Date Recorded Body height Body mass index (BMI) Body weight Provider Name and Address Organization Details Last Updated DateTime 09/12/2024 170.18 cm 42.1 kg/m2 593419.35 g DEVANTE ECHAVARRIA [facility] 09/12/2024 10:18:36 Date Recorded Body height Body mass index (BMI) Body weight Provider Name and Address Organization Details Last Updated DateTime 10/15/2024 170.18 cm 46.4 kg/m2 656984.34 g Adelaide Pandey [facility] 10/15/2024 13:01:33 Social History Question Answer Notes LastModified by Organizat ion Details LastModified Time Tobacco Smoking Status Never Smoker Yaima chin [place] - [facility] 07/14/2024 11:11:46 Do You Or Have You Ever Used E-cigarettes Or Vape? Never Used Electronic Cigarettes [email or web address] Information not available 09/12/2024 What Is Your Relationship Status? Single Information not available 07/14/2024 Do You Use Any Illicit Or Recreational Drugs? No Information not available 07/14/2024 Do You Or Have You Ever Used Any Other Forms Of Tobacco Or Nicotine? No Information not available 07/14/2024 Sex: Unknown Functional Status None recorded. Mental Status None recorded. Family History Nothing Reported. Medical History Condition Response Allergies/Hayfever N Coronary Artery Disease N Anxiety/Depression N Breathing or lung disorders N Emphysema N Nerve Disorders Y Thyroid Problems N COPD N Pacemaker N Anemia N Kidney/Bladder Problems Y Vascular Disease N Heart Trouble Y Heart Attack ([place]) N Gastrointestinal Disease N Cholesterol N Diabetes N Autoimmune disease N Bleeding Disorder N Orthotics N Arthritis Y Seizures/Epilepsy N Blood Clot N AIDS/HIV N Congestive Heart Failure (CHF) N Acid Reflux (GERD) N Cancer N Stroke N Asthma N Circulation Problems Y Peripheral Vascular Disease N Sleep Apnea N Hepatitis N Heart Disease N Rheumatoid Arthritis Y Arrhythmia N Pulmonary Embolism N Headaches N Fibromyalgia N Hypertension Y Osteoporosis N Gynecological HistoryNo gynecological history recorded. Obstetrics History GPAL:G 0 P 0 0 0 0 Past Encounters Encounter ID Performer Location Encounter Start Date Encounter Closed Date Diagnosis/Indication Diagnosis SNOMED-CT Code Diagnosis ICD10 Code Diagnosis Note [id number] MERRITT Mccrary [address] [place] [address] 01/17/2024 12:36:10 02/07/2024 12:58:14 Impingement syndrome of right shoulder region 0725122382 29343 M75.41 PLANThe patient has done well with conservati ve management in regards to the shoulder with good clinical response to injections in the past. Recommend continued conservati ve management with repeat injection( s) today. Moderating activities with the upper extremity recommende d also. See procedure notes for injection details. Localized, primary osteoarthritis of the shoulder region 610025221 M19.055 [id number] Garry Martin PA-C [address] [place] [place] [address] 01/15/2024 09:18:18 01/15/2024 10:16:55 Pain of right knee joint 2013056263 38603 M25.561 Osteoarthr itis of right knee joint 7483159028 35980 M17.11 [id number] Garry Martin PA-C [address] [place] [address] 02/26/2024 08:50:27 03/20/2024 08:40:55 Bilateral osteoarthritis of knees 4236627380 93983 M17.0 [id number] Narda Soriano PA-C [address] [place] [address] 04/14/2024 12:48:04 05/12/2024 11:48:08 Impingement syndrome of right shoulder region 7563831025 41469 M75.41 PLANThe patient has done well with conservati ve management in regards to the shoulder with good clinical response to injections in the past. Recommend continued conservati ve management with repeat injection( s) today. Moderating activities with the upper extremity recommende d also. See procedure notes for injection details. Bilateral osteoarthritis of knees 7619604567 68597 M17.0 Performed Euflexxa series injections #1 today. She will return for her following 2 injections . Our office will contact her to schedule these. [id number] MERRITT Mccrary [address] [place] [address] 04/23/2024 13:46:09 05/18/2024 12:25:48 Bilateral osteoarthritis of knees 8085116780 94199 M17.0 Performed Euflexxa series injections #2 today. She will return in 1 week for her final injections . [id number] MERRITT Mccrary [address] [place] [address] 04/28/2024 10:11:14 05/21/2024 15:09:42 Bilateral osteoarthritis of knees 7254224644 39271 M17.0 [id number] MERRITT Mccrary [address] [place] [address] 06/19/2024 13:44:44 07/10/2024 14:37:31 Bilateral osteoarthritis of knees 8436053742 82737 M17.0 Nature of the diagnosis discussed with the patient today. Both surgical and nonsurgica l options were reviewed. At this point I have recommende d a repeat cortisone injection. Patient agrees with this plan. Patient tolerated the procedure well. Post injection precaution s reviewed. They will continue with conservati ve modalities including icing and elevating. Follow-up with us in 3 months for discussion of continued conservati ve management versus total joint arthroplas ty. Elects to move forward with cortisone injections today. Will submit for prior authorizat ion for Zilretta injections depending on how she is doing at her follow-up visit in July for her shoulders. Discussed that we could attempt repeat gel injections with a 2 or 1 series to see if this works any better rather than the 3 series. She is agreeable to this. All questions and concerns were addressed and answered. [id number] MERRITT Mccrary [address] [facility] [address] [place] [address] 07/14/2024 10:58:59 08/07/2024 15:59:53 Impingement syndrome of right shoulder region 8975193420 16635 M75.41 PLANThe patient has done well with conservati ve management in regards to the shoulder with good clinical response to injections in the past. Recommend continued conservati ve management with repeat injection( s) today. Moderating activities with the upper extremity recommende d also. See procedure notes for injection details. [id number] MERRITT Mccrary [address] [place] [address] 09/12/2024 10:01:24 10/09/2024 08:08:07 Primary gonarthrosis, bilateral 106630019 M17.0 Nature of the diagnosis discussed with the patient today. They are having an acute exacerbati on of symptoms including pain, swelling and difficulty participat ing in ADL's. Both surgical and nonsurgica l options were reviewed. Conservati ve treatment options including activity modificati on, low impact exercise program such as swimming, stationary biking, swimming or rowing, physical therapy, NSAIDs, and injections were discussed. At this point patient elects to move forward with a repeat cortisone injection. Patient tolerated the procedure well. Post injection precaution s reviewed. They will continue with conservati ve modalities including icing and elevating. Follow-up with us as symptoms dictate for discussion of continued conservati ve management options versus total joint arthroplas ty. [id number] MERRITT Mccrary [address] [place] [address] 10/15/2024 12:32:10 10/28/2024 09:22:41 Impingement syndrome of right shoulder region 2667863667 89794 M75.41 PLANThe patient has done well with conservati ve management in regards to the shoulder with good clinical response to injections in the past. Recommend continued conservati ve management with repeat injection( s) today. Moderating activities with the upper extremity recommende d also. See procedure notes for injection details. Health Concerns Section Related Observation LastModified by Organization Detai ls LastModified Time None Recorded Concern Status LastModified by Organization Details LastModified Time None Recorded Advance Directives Directive None Recorded Payers Encounter Date Sequence Insurance Name Policy Number Policy Gerard Covered Member ID Gerard Member ID Guarantor Name 04/28/2024 1 [employer] (PPO) [id number] Radha E Tawrel [id number] Radha Taylor Tawrel 06/19/2024 1 [employer] (PPO) [id number] Radha E Tawrel [id number] Radha E Tawrel 07/14/2024 1 [employer] (PPO) [id number] Radha E Tawrel [id number] Radha Taylor Tawrel 09/12/2024 1 [employer] IN[employer] PLAN (PPO) [id number] Radha Bauerzenysulma [id number] Radha Bauerzenysulma 10/15/2024 1 [facility] INDEMN[facility] (PPO) [id number] Radha Blandon [id number] Radha Blandon Notes Date Note Type Note Provider Name and Address Organization Details Recorded Time 04/28/2024 text/html I am seeing the patient under the general supervision of Dr. Boss who was available but who did not see the patient. HPI: Patient presents today for their {{Gel-One Euflexxa # 1 Euflexxa #2 Euflexxa #3*}} injection(s) for treatment of their {{right left bilater al*}} knee osteoarthritis. Patient continues to complain of knee pain. We will move forward with injection today. Physical exam: Gen.: Well-appearing, in no acute distress, alert and oriented x 3 Extremity: Examination of patient's {{left right bilater al*}} knee(s) demonstrates no overlying erythema, ecchymosis or edema. Crepitations appreciated throughout range of motion. Joint line tenderness noted throughout. Injection site(s) benign. Assessment: {{Right Left Bilater al*}} knee osteoarthritis. Plan: Move forward with {{Gel-One Euflexxa # 1 Euflexxa #2 Euflexxa #3*}} injection(s). See procedure note for details. Follow up {{as needed* 1 week}} Narda Soriano PA-C [address] [facility] [address] [facility], [place], [address], [facility] [place] 04/28/2024 10:50:04 06/19/2024 text/html I am seeing the patient under the general supervision of {{Dr. Funes* Dr. Gera Luna}} who was available but who did not see the patient. HPI: Patient presents today for recheck of {{left right bilater al*}} knee osteoarthritis. Is known to have arthritis treated conservatively with intermittent cortisone injections every 3 months as needed. No new injury or modalaties. Last injection(s) were gel injection series in April. States that injections were working well until the third shot when she felt like this worsened her pain. Would like to discuss alternative treatment options including long-acting cortisone. Narda Soriano PA-C [address], [place], [address], [facility] 06/19/2024 14:39:36 07/14/2024 text/html I am seeing the patient under the general supervision of {{Dr. Funes* Dr. Gera Luna}} who was available but who did not see the patient. 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 The patient has done well with conservative management for their shoulder pain with good clinical response to cortisone injections in the past. Reports recently increasing discomfort over the past several weeks with no new injury or trauma. Pain is generalized about the shoulder and discomfort is worst at night. Last injections were {{ 04/14/24#}}. Narda Soriano PA-C [address], [place], [address], [facility] 07/14/2024 11:30:50 09/12/2024 text/html I am seeing the patient under the general supervision of {{Dr. Funes* Dr. Gera Luna}} who was available but who did not see the patient. HPI: Patient presents today for recheck of {{left right bilater al*}} knee osteoarthritis. Is known to have arthritis treated conservatively with intermittent cortisone injections every 3 months as needed. No new injury or modalaties. Last injection(s) were gel injection series in April. States that injections were working well until the third shot when she felt like this worsened her pain. Would like to discuss alternative treatment options including long-acting cortisone. Narda Soriano PA-C [address], [place], [address], [facility] 09/12/2024 10:35:35 10/15/2024 text/html I am seeing the patient under the general supervision of {{Dr. Funes* Dr. Gera Luna}} who was available but who did not see the patient. History of Present Illness: Patient comes to the office with known history of {{glenohumeral arthritis subacromia l impingement* degener ative rotator cuff disease}} of the {{left Right* Bilate ral}} shoulder(s). The patient has done well with conservative management for their shoulder pain with good clinical response to cortisone injections in the past. Reports recently increasing discomfort over the past several weeks with no new injury or trauma. Pain is generalized about the shoulder and discomfort is worst at night. Last injections were {{ 07/14/24#}} Narda Soriano PA-C [address] [facility] [address], [place], [address], [facility] 10/15/2024 13:21:02 OBGyn Episode No OBEpisode recorded.
--- OUTSIDE RECORDS SUMMARY | 2024-12-02 17:08 | XMS_ITS | Clinical Summary ---
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 Name Role Phone Unavailable Primary Care Provider Unavailabl e Surgical History Surgery Date Site/Laterality Comments OTHER SURGICAL HISTORY 1999 PROCEDURE: [place] ERCP DESTRUCTION/LITHOTRIPSY CALCULI ANY METHOD OTHER SURGICAL HISTORY 03/22 PROCEDURE: MAMMOGRAM COLONOSCOPY 01/07 PROCEDURE: [place] COLONOSCOPY STOMA DX INCLUDING COLLJ SPEC SPX; COMMENT: [facility] COLONOSCOPY 02/11/2014 PROCEDURE: [place] COLONOSCOPY FLX DX W/COLLJ SPEC WHEN PFRMD; COMMENT: normal Medical History Medical History Date Comments Calculus of kidney DX:Calculus o f kidney Dermatophytosis of nail 04/04/2006 DX:[place] tophytosis of nail Primary localized osteoarthr osis, [...] Upcoming Encounters Date Type Department Care Team ([facility] st Contact Info) Description 05/19/2025 10:30 AM EDT Appointment Radiology Department [address] [address] Health Maintenance Due Date Last Done Comments [...] classified as having normal bone density. [facility] Department of Internal Medicine recommends using National [...] beclassified as having normal bone density. [facility] Department of Internal Medicine recommendsusing National Osteoporosis [...]
--- OUTSIDE RECORDS SUMMARY | 2024-12-02 17:08 | XMS_ITS | Patient Health Record ---
Author Organization [facility] Address [address] [place] [address] Care Team Providers Care Lip Of Shank Cutter Name Role Phone Viola Mack MD Primary Care Provider Unavaila marc Black, Katharina Unavailable [phone] Allergies Allergen (clinical drug ingredient) Drug/Non Drug [...] primary osteoarthritis of the ankle and/or foot (504430797) Primary osteoarthrit is, left ankle and foot (M19.072) Active confirmed Problem Non-pressure ulcer lower limb (551690909) Non-pressure chronic ulcer of other part of right foot limited to breakdown of skin (L97.511) Active confirmed Problem Acquired hammer toe of right foot (6829574245314756 ) Other hammer toe(s) (acquired), right foot (M20.41) Active confirmed Problem Acquired hammer toe of left foot (0922897956374951 ) Other hammer toe(s) (acquired), left foot (M20.42) Active confirmed Problem Pressure injury of right foot stage I (disorder) (371992745493880) Pressure injury of right foot, stage 1 (L89.891) Active confirmed Response to treatment - Improvement Vital Signs Blood pressure diastolic 56 mm Hg 09/21/2024 Height 5ft8in in 09/21/2024 Blood pressure systolic 172 mm Hg 09/21/2024 Weight 265 lbs 09/21/2024 BMI 40.29 kg/m2 09/21/2024 Procedures Procedure Date Ordered Date Performed Result Body Sit e 87879-ZSASVRP NAIL, 6 OR MORE 02/24/2024 N/A 23371-XNEIGLI NAIL, OR MORE 06/15/2024 N/A 79268-Nrnenbdz Plate 06/15/2024 N/A 62454- Debride <25 sq cm 06/15/2024 N/A 94225-TXVKBBD NAIL, 6 OR MORE 09/21/2024 N/A 95503-Rjfdrrzc Plate 09/21/2024 N/A 41477- Debride <25 sq cm 09/21/2024 N/A Encounters Encounter Location Date Provider Diagnosis [address] [address] 02/24/2024 Katharina Black Tinea unguium B35.1 ; Pain in right toe(s) M79.674 and Pain in left toe(s) M79.[address] [address] 06/15/2024 Katharina Black Tinea unguium B35.1 ; Pressure injury of right foot, stage 1 L89.891 ; Pain in right toe(s) M79.674 ; Pain in left toe(s) M79.675 and Ingrown nail L60.[address] [address] 09/21/2024 Katharina Black Pressure injury of right [...] Treatment Pending Test Test Name Order Date 60550-SWBXCQF NAIL, 6 OR MORE 08/07/2021 72542-QIUFQAG NAIL, 6 OR MORE 12/11/2021 14609-HGNQTUP NAIL, 6 OR MORE 04/16/2022 62885-CFGGQGQ NAIL, 6 OR MORE 08/20/2022 33764-BTZACLK NAIL, 6 OR MORE 12/31/2022 61259-GIWWEPI NAIL, 6 OR MORE 05/06/2023 63274-YXRJHFC NAIL, 6 OR MORE 11/14/2023 93985-LURMRVZ NAIL, 6 OR MORE 02/24/2024 93401-AOVDXHJ NAIL, 6 OR MORE 06/15/2024 14269-QPBJKLQ NAIL, 6 OR MORE 09/21/2024 06146-Lpwjvnlm Plate 09/21/2024 08166-Qkjvzcav Plate 05/06/2023 31939-Eivdvczx Plate 06/15/2024 89668-Kyazhufa Plate 12/31/2022 79337- Debride <25 sq cm 12/11/2021 59665- Debride <25 sq cm 05/06/2023 18907- Debride <25 sq cm 12/31/2022 52367- Debride <25 sq cm 08/20/2022 09655- Debride <25 sq cm 04/16/2022 95296- Debride <25 sq cm 09/04/2021 81567- Debride <25 sq cm 04/16/2018 31002- Debride <25 sq cm 05/25/2021 29639- Debride <25 sq cm 08/07/2021 46460- Debride <25 sq cm 09/21/2024 92049- Debride <25 sq cm 06/15/2024 51227,V0444-YCW TENDON SHEATH/LIGAMENT 1 10/07/2020 51535,B5544-XII TENDON SHEATH/LIGAMENT 0 05/25/2021 52111,L2982-TQJ TENDON SHEATH/LIGAMENT 1 11/04/2020 Next Appt Details Provider Name:Katharina De La Rosa , 12/28/2024 11:30:00 AM, [address] [place] [address], [phone], Insurance Providers Payer Name Payer Address Payer Phone Subscriber Number Group Number Insured Name Patient Relationship to Insured Coverage Start Date Coverage End Date [facility]) [address] [place], [place] [id number] [phone] [id number] [facility] Radha Blandon Self - patient is the insured Medical (General) History Medical History History ICD Code Anemia Anxiety disorder Arthritis Back,Hip,and Knee pain Chicken pox High blood pressure Kidney stones Measles Mumps Broken bones Sciatica A fib Surgical History Surgery Date(Month/Year) Lithotripsy 2019 eye surgery, lenses 09/28 Hospitalization History Reason Date(Month/Year) [facility]- rapid heart rate 10/11/23
--- OUTSIDE RECORDS SUMMARY | 2024-12-02 17:08 | XMS_ITS ---
Author Organization [facility] Address [address] [place] [address] Care Team Providers Care Stove Installer Name Role Phone Viola Mack MD Primary Care Provider Unavaila ble Black, Katharina Unavailable [phone] Allergies Allergen (clinical drug ingredient) Drug/Non Drug [...] Ordered Date Performed Result Body Sit e 46165-NISXKHU NAIL, 6 OR MORE 02/24/2024 N/A Encounters Encounter Location Date Provider Diagnosis [facility] [address] [address] 02/24/2024 Katharina De La Rosa Tinea unguium [...] Treatment Pending Test Test Name Order Date 71384-WNBRGQM NAIL, 6 OR MORE 02/24/2024 Next Appt Details Follow Up: prn, Reason: Provider Name:Katharina De La Rosa , 12/28/2024 11:30:00 AM, [address] [place] [address], [phone], Procedure Notes * Category Sub-Category Detail Notes [...] as necessary. Patient chooses, no pharmaceutical tx (68246) Progress Notes * Radha BLANDON EDOB: (73 yo F)Acc No.[id number]:02/24/2024 Progress Note Patient:?Radha Blandon Provider:?Katharina De La Rosa DPM :1950???Age:73 Y???Sex:Female D ate:02/24/2024 [facility] [place], [place] [address] Pcp:Viola Mack MD Subjective: * Chief Complaints: [...] as necessary. Patient chooses, no pharmaceutical tx (59596).? * Procedure Codes:?26582 DEBRI DE NAIL, 6 OR MORE * Follow Up:?prn * Images: * Sign off status: Completed true * Provider:?Katharina De La Rosa DPM Date:?2023 Generated for William ingram/Kaity/Buditting on:?12/02/2024 05:07 PM EST History and Physical Notes * HPI [...]
--- OUTSIDE RECORDS SUMMARY | 2024-12-02 17:08 | XMS_ITS ---
Author Organization [facility] Address [address] [place] [address] Care Team Providers Care Msw Name Role Phone Viola Mack MD Primary Care Provider Unavaila ble Black, Katharina Unavailable [phone] Allergies Allergen (clinical drug ingredient) Drug/Non Drug [...] injury of right foot stage I (disorder) (15346700678 4102) Pressure injury of right foot, stage 1 (L89.891) Active confirmed Response to treatment - Improvement Vital Signs Height 5ft 8in in 06/15/2024 Weight 265 lbs 06/15/2024 BMI 40.29 kg/m2 06/15/2024 Blood pressure systolic 148 mm Hg 06/15/20 24 Blood pressure diastolic 54 mm Hg 024 Procedures Procedure Date Ordered Date Performed Result Body Sit e 55964-JIXUXVL NAIL, 6 OR MORE 06/15/2024 N/A 55349-Nhovegxr Plate 06/15/2024 N/A 22235- Debride <25 sq cm 06/15/2024 N/A Encounters Encounter Location Date Provider Diagnosis [facility] [place] [address] [place] [address] 06/15/2024 Katharina Black Tinea unguium B35.1 ; [...] INSTRUCTIONS.pdf) Pending Test Test Name Order Date 26300-REHTNXE NAIL, 6 OR MORE 06/15/2024 20049-Hvdvrxnm Plate 06/15/2024 39773- Debride <25 sq cm 06/15/2024 Next Appt Details Follow Up: 6 Weeks, Reason: Provider Name:Katharina Beard Rj , 12/28/2024 11:30:00 AM, [address] [place] [address], [phone], Procedure Notes * Category Sub-Category Detail Notes [...] Motrin was recommended for pain or discomfort (14319) , Pt DEFERS matricectomy Anesthesia was accomplished [...] as necessary. Patient chooses, no pharmaceutical tx (29497) Debride skin< 25 sq cm Open wound [...] of the wound post debridement is stable (32860) Progress Notes * CHAOJENNRadha GUSTAFSON EDOB: (73 yo F)Acc No.[id number]:06/15/2024 Progress Note Patient:?Radha Blandon Provider:?Katharina De La Rosa DPM :1950???Age:73 Y???Sex:Female D ate:06/15/2024 Address:[address] [place], [place] [phone] Pcp:Viola Mack MD Subjective: * Chief Complaints: * ???Painful nail(s) aggrevate d by shoes causing difficulty standing/walkingOpen soreIngrown Nail * HPI: ???Painful Nails:?Pt States Last PCP Visit:?Date:?03/03/2024 ???Skin problems:?Treatments:?none.? * Medical History:? * Surgical History:?Lithotrips y 2019eye surgery, lenses 09/28 * Hospitalization/Major Diagno stic Procedure:?[facility]- rapid heart rate 10/11/23 * Family History:?Mother: [...] - L60.0? Plan: * Treatment: 2.?Tinea unguium?Procedure: 53349-UTCHKWT NAIL, 6 OR MORE 3.?Ingrown nail?Procedure: 49902-Ubctrzwe Plate * Procedures:?Debride Nail 6-10:?Nail debridement?Nail debridement performed extensively to reduce/remove overall nail length, girth, thickness, subungual debris, and necrotic tissue, by manual and electrical means through the use of a nail nipper and/or dremel, to more viable healthy nail plate or bed tissue 1-5. Silver nitrate used for any petechial bleeding as necessary. Patient chooses, no pharmaceutical tx (37398).?Debride skin< 25 sq cm:?Open wound?Physician of record [...] of the wound post debridement is stable (41480).?Nail Avulsion:?Location?Lateral nail border , TA.?Anesthesia?was accomplished TOPICALLY [...] Motrin was recommended for pain or discomfort (83023) , Pt DEFERS matricectomy.? * Procedure Codes:?71143 DEBRI DE NAIL, 6 OR MORE, Modifiers: XS 59748 Avulsion Plate, [place]ifiers: [place] [address] ACTIVE WOUND CARE/20 CM OR <, Modifiers: [...] Rosa DPM Date:?2023 Generated for William ingram/Kaity/Javi on:?12/02/2024 05:08 PM EST History and Physical Notes * [...]
--- OUTSIDE RECORDS SUMMARY | 2024-12-02 17:08 | XMS_ITS | Patient Health Record ---
Author Organization [facility] Address [address] [facility] [facility] [address] [place] [address] Support Name Relationship Address Phone DEVORA DUBOSE Guarantor Unknown [phone] Reason For Referral No Information Medications Medication SIG (Take, Route, Fr equency, Duration) Notes Start Date End Date Status Fluconazole 50MG 5ML ORAL WEEKLY for 7 Cas-MJ 12/19/2011 Active Immunizations Vaccine Route Administration Date Status Comme nts Influenza, live, intranasal Intramuscular 12/19/2011 Pendi ng Problems Problem Type SNOMED Code ICD Code Onset Dates Problem Status W/U Status Risk Notes Problem Gynecological examination normal (900024402457026) Routine gynecological examination (V72.31) Active confirmed Diag Plan Of Treatment No Information Insurance Providers Payer Name Payer Address Payer Phone Subscriber Number Group Number Insured Name Patient Relationship to Insured Coverage Start Date Coverage End Date [facility] INDEMNITY PLAN [address] [place], [place] [id number] DEVORA DUBOSE Self - patient is the insured
--- OUTSIDE RECORDS SUMMARY | 2024-12-02 17:09 | XMS_ITS | Data Portability ---
Author Organization [place] [facility] Address [address] [address] Care Team Providers Care Commercial Lines Account Assistant Name Role Phone SORIN SANDERSANNA Primary Care Provider [phone] Assessment Encounter Date Assessment Date Assessment LastModified [...] call for reevaluation. Otherwise follow-up as needed. [email or web address] Not available 05/06/2024 11:24:19 Plan of Treatment [...] ation record ed. [email or web address] Not Available 22:10:30 05/27/20 24 06/19/2023 imagi ng/di agnos tic resul t No observ ation record ed. [email or web address] Not Available 22:11:02 Result Notes None recorded. Problems Name Problem SNOMED Code Status Onset Date Resolution Date Notes Provider Name and Address Organization Details Recorded Time Otalgia of left ear 5170432803 Active 2020 Otalgia, left ear; Note: Date Diagnosed : 05/27/2021 2:03 PM (H92.02) Not Available [facility] 4 03:16:49 Bilateral earache 226398677 Active 2022 Otalgia, bilateral ; Note: Date Diagnosed : 06/19/2023 2:26 PM (H92.03) Not Available [facility] 4 03:16:50 Dizziness and giddiness 351675400 Active 2021 Dizziness and giddiness ; Note: Date Diagnosed : 03/27/2022 5:05 PM (R42) Not Available [facility] 4 03:16:49 Allergic rhinitis 08228564 Active 2021 Other allergic rhinitis; Note: Date Diagnosed : 03/27/2022 5:05 PM (J30.89) Not Available [facility] 4 03:16:49 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 Other specified disorders of temporoma ndibular joint; Note: Date Diagnosed : 05/27/2021 2:08 PM (M26.69) Not Available [facility] 4 03:16:50 Posterior rhinorrhe a 27255756 Active 2021 Postnasal drip; Note: Date Diagnosed : 06/27/2022 12:20 PM (R09.82) Not Available [facility] 4 03:16:50 Nasal congestio n 90567704 Active 2021 Nasal congestio n; Note: Date Diagnosed : 03/27/2022 5:05 PM (R09.81) Not Available [facility] 4 03:16:49 Benign paroxysma l positiona l vertigo 512669294 Active 2021 Benign paroxysma l vertigo, unspecifi ed ear; Note: Date Diagnosed : 03/27/2022 5:17 PM (H81.10) Not Available [facility] 4 03:16:50 Arthralgi a of temporoma ndibular joint 90094589 Active 2023 SAMUEL FONG PA-C [address] [place] [address],[place] [address], [facility] [place], [place], [address] , [place] [facility] 4 11:24:38 Problem Notes None recorded. Procedures Surgical History Date Name Laterality Status Provider Name and Address Organization Details Recorded Time lithotripsy completed Cherry Roberts [place] [facility] 05/06/2024 10:31:08 Imaging Results Imaging Date Name Status [facility]Modified by [facility] Details LastModified Time 01/05/2022 imaging/diag nostic result completed Information not available 05/27/2024 22:10:30 06/19/2023 imaging/diag nostic result completed Information not available 05/27/2024 22:11:02 Procedure Notes None recorded. Medical Equipment None Reported. Allergies Allergen ID Allergen Name Allergen Category Reaction Reaction Severity Criticality Documentation Date Start Date Code Code System Note Provider Name and Address Organization Details Recorded Time 92486 erythromy omar medicatio n other Not available Not available 02/18/2024 4053 RxNorm React ion: Unkno wn; Not Available [facility] 4 00:48:36 Medications Name Sig Start Date Stop Date Status Note LastModified by Organization Details LastModified Time amoxicill in 500 mg capsule 05/06 completed Medicati on ID: 070284 B rand Name: amoxicil shameka Send Method: E-Prescr ibed Sub s Allowed: subs OK Speci al Instruct ion: TAKE 1 CAPSULE BY MOUTH THREE TIMES A DAY Medi cationGe nericNam e: amoxicil shameka Medi cation ID: 644381 B rand Name: amoxicil shameka Send Method: E-Prescr ibed Sub s Allowed: subs OK Speci al Instruct ion: TAKE 1 CAPSULE BY MOUTH THREE TIMES A DAY Medi cationGe nericNam e: amoxicil shameka Not Available Not Available Not Available gabapenti n 600 mg tablet active Medicati on ID: 313621 B rand Name: gabapent in Send Method: [...] 1 gram tablet active Medicati on ID: 140625 B rand Name: valacycl ovir Sen d Method: E-Prescr ibed Sub s Allowed: subs OK Speci al Instruct ion: TAKE 1 TABLET BY MOUTH 3 TIMES A DAY Medi cationGe nericNam e: valacycl ovir Not Available Not Available Not Available lisinopri l 20 mg tablet active Medicati on ID: 752102 B rand Name: lisinopr il Send Method: [...] 10 mg tablet active Medicati on ID: 023674 B rand Name: amlodipi ne Send Method: [...] % topical ointment active Medicati on ID: 330822 B rand Name: mometaso ne Send Method: [...] as directed 2021 active Medicati on ID: 999762 B rand Name: azelasti ne Send Method: [...] n 0.3 %-dexamet hasone 0.1 % eye drops,sharad pension INSTILL 1 DROP INTO RIGHT EYE TWICE A DAY FOR 7 DAYS 05/06 completed Not Available Not Available Not Available hydrocort isone 1 % topical cream with perineal applicato r 05/06 completed Medicati on ID: 834120 B rand Name: hydrocor tisone S end Method: E-Prescr ibed Sub s Allowed: subs OK Speci al Instruct ion: APPLY TOPICALL Y 4 TIMES DAILY NEEDED M tomer nGeneric Name: torsten jeff n ID: [id number] B rand Name: torsten Mccoy end Method: [...] SNOMED-CT Code Diagnosis ICD10 Code Diagnosis Note 44723 LUIS STEEN MD [facility] [address] [address] 05/06/2024 10:20:40 05/06/2024 10:55:09 Bilateral earache 928393174 H92.03 Arthralgia of temporomandibular joint 50109112 M26.629 Health Concerns Section Related Observation LastModified by Organization Detai ls LastModified Time None Recorded Concern Status LastModified by Organization Details LastModified Time None Recorded Advance Directives Directive None Recorded Payers Encounter Date Sequence Insurance Name Policy Number Policy Gerard Covered Member ID Gerard Member ID Guarantor Name 05/06/2024 1 [facility] [id number] Radha Blandon [id number] Radha Blandon Notes Date Note Type Note [...] drainage within the ears. LUIS PALACIO MD [address] [place] [address], [place], [address], [facility] 05/06/2024 12:41:25 OBGyn Episode No OBEpisode recorded.
== END 2024-12-02 15:32 | disposition home or self-care (01) ==
PROVIDERS: PCP Internal Medicine; Visit Provider Internal Medicine
DX: L03.116 Cellulitis of left lower limb (principal); R60.9 Edema, unspecified

== ENCOUNTER → 2024-12-02 13:55 | Outpatient (BNVA) | payer OTHER, SELFPAY | PROVIDERS: PCP Internal Medicine; Visit Provider Internal Medicine ==

== ENCOUNTER 2024-12-04 13:30 | Outpatient (AMB) | payer OTHER, SELFPAY ==
--- NOTE | 2024-12-04 13:36 | MHC.PC.OV ---
Vital Signs 12/04/24 13:39 Height 5 ft 8 in Weight 277 lb BMI 42.1 BP 128/70 Blood Pressure Location Lt brachial Position Sitting Respiration 20 Pulse 64 Pulse Source Pulse Oximeter Temp 97.7 F Temp Source Oral Pulse Oximetry (%) 100 Oxygen Delivery Method Room Air Intake Visit Reasons: 2 days f/up Intake Note: Pt is here today for a 2 days follow up on cat scratch that got infected. Allergies metoprolol Allergy (Severe, Verified 12/04/24 13:42) Rash doxycycline Adverse Reaction (Intermediate, Verified 12/04/24 13:42) Abdominal Pain methylprednisolone Adverse Reaction (Intermediate, Verified 12/04/24 13:42) rapid heart rate erythromycin base Adverse Reaction (Unknown, Verified 12/04/24 13:42) upset stomach nausea Medication List - Last Reconciled 12/04/24 by Viola Mack MD amlodipine 5 mg PO DAILY amoxicillin-pot clavulanate 875-125 mg 1 tab PO BID apixaban (Eliquis) 5 mg PO BID atenolol 50 mg PO DAILY desonide 0.05% topical fluconazole 150 mg PO Q3D 2 doses fluticasone propionate 50 mcg/actuation 1 spray intranasal BID PRN furosemide 20 mg PO Q OTHER DAY glucosamine sulfate 750 mg PO ONCE lisinopril 10 mg PO DAILY lorazepam 0.5 mg PO DAILY PRN multivitamin 1 tab PO DAILY Tobacco use date assessed: 12/04/24 Dental Screening Dental Screen Date: 12/02/24 HPI 2 days f/up HPI Details Patient presents for the follow-up of left lower extremity cellulitis due to cat scratch. Patient reports still discomfort in her like when walking but the swelling decreased. Patient has been taking Augmentin and stopped taking amlodipine while on 40 mg of furosemide. [facility] Medical History SHARIF (obstructive sleep apnea) Retrognathia Atrial fibrillation Chest pain Morbid obesity CKD (chronic kidney disease) stage 3, GFR 30-59 ml/min Hyperlipemia Annual physical exam Mammogram normal DJD (degenerative joint disease), lumbar Anxiety Overweight HTN (hypertension) Surgical History H/O bilateral cataract extraction H/O lithotripsy H/O colonoscopy Family History Father No problems noted. Mother HTN (hypertension) Social History Housing: House Alcohol intake: current Alcohol intake frequency: holidays/special occasions only Patient Tobacco Use Status: Never used Tobacco e-Cigarette/Vaping Use: Never Used Second Hand Smoke Exposure: No service: No Current occupational status: retired Cognitive needs: No Hearing needs: No Vision needs: Yes Questionnaire PHQ-9 Over the last 2 weeks, how often have you been bothered by any of the following problems? 1. Little interest or pleasure in doing things: not at all 2. Feeling down, depressed, or hopeless: not at all 3. Trouble falling or staying asleep, or sleeping too much: not at all 4. Feeling tired or having little energy: not at all 5. Poor appetite or overeating: not at all 6. Feeling bad about yourself - or that you are a failure or have let yourself or your family down: not at all 7. Trouble concentrating on things, such as reading the newspaper or watching television: not at all 8. Moving or speaking so slowly that other people could have noticed. Or the opposite - being so fidgety or restless that you have been moving around a lot more than usual: not at all 9. Thoughts that you would be better off or of hurting yourself in some way: not at all Total score: 0 Source: Developed by Drs. Gopi Baker, Stefani Doyle, Alfonso Carey and colleagues, with an educational jeancarlos from [employer]. Thrive Questionnaire Date Thrive assessed: 12/02/24 I am a: Patient What is your living situation today?: I have a steady place to live Within the past 12 months, did the food you bought not last and you didn't have the money to get more?: Never true Within the past 12 months, did you worry whether your food would run out before you got money to buy more?: Never true Do you have trouble paying for medicines?: No Do you have trouble getting transportation to medical appointments?: No Do you have trouble paying your heating and electricity bill?: No Do you have trouble taking care of your child, family member or friend?: No Do you have trouble with day-to-day activities such as bathing, preparing meals, shopping, managing finances, etc.?: No Are you currently unemployed and looking for a job?: No Are you interested in more education?: No Please select the resources that you would like help with: None Currently or been in a relationship where the following occur: No concerns reported THRIVE Score: 0 AUDIT C Alcohol Use Questionnaire (AUDIT-C) 1. How often do you have a drink containing alcohol?: Never 3. How often do you have six or more drinks on one occasion?: Never Total Score: 0 HANNA-7 AMB Questionnaire HANNA-7 Date HANNA - 7 assessed: 09/10/24 Feeling nervous, anxious, or on edge: 1 = Several days Not being able to stop or control worryin = Several days Worrying too much about different things: 1 = Several days Trouble relaxin = Not at all Being so restless that it is hard to sit still: 0 = Not at all Becoming easily annoyed or irritable: 0 = Not at all Feeling afraid as if something awful might happen: 0 = Not at all Total HANNA-7 score (0-4 normal; 5-9 mild; 10-14 moderate; 15-21 severe): 3 Source: Developed by Drs. Gopi Baker, Stefani Doyle, Alfonso Carey and colleagues, with an educational jeancarlos from [employer]. Review of Systems Const All systems reviewed & are unremarkable except as noted in HPI and below Eyes Reports no additional complaints ENT Reports no additional complaints Card Reports no additional complaints Resp Reports no additional complaints GI Reports no additional complaints Reports no additional complaints Physical exam (Primary Care) Vital Signs: Last Vital Signs Temp 97.7 F 12/04/24 13:39 Pulse 64 12/04/24 13:39 Resp 20 12/04/24 13:39 BP 128/70 12/04/24 13:39 Pulse Ox 100 12/04/24 13:39 Oxygen Delivery Method Room Air 12/04/24 13:39 BMI result Body Mass Index 42.1 Tobacco/Smoking Status: Tobacco use Status Tobacco use date assessed 12/04/24 12/04/24 13:42 Patient Tobacco Use Status Never used Tobacco 12/04/24 13:36 e-Cigarette/Vaping Use Never Used 12/04/24 13:36 PHQ-9: PHQ-9 Score PHQ-9: Total score 0 12/04/24 13:43 Thrive Assessment: Date of Thrive Assessment Date Thrive assessed 12/02/24 12/04/24 13:36 Currently or been in a relationship where the following occur: No concerns reported Const General: no acute distress HENMT Head: Yes normal to inspection Resp Effort & Inspection: normal respiratory effort Auscultation: clear to auscultation bilaterally Cardio Rhythm: regular rhythm Heart sounds: S1 normal heart sound present and S2 normal heart sound present GI Inspection: Yes normal to inspection Extrem Other: residual erythema on anterior goss, healing shallow ulcer no discharge, chronic lymphedema 2+ decreased from 3 days Coding Level of Care Code Est Pt Level 3 (36538) Diagnoses Cellulitis L03.90 Edema R60.9 HTN (hypertension) I10 Assessment & Plan Assessment & Plan (1) Cellulitis: Comment: Left anterior goss due to cat scratch 11/2024 Code(s): L03.90 - Cellulitis, unspecified Category: Medical Plan: Continue 5 more days of Augmentin (2) Edema: Comment: Chronic lower extremities edema due to venous stasis AND POSSIBLE ASSOCIATED LYMPHEDEMA. Code(s): R60.9 - Edema, unspecified Category: Medical Plan: Continue furosemide 20 mg daily for next week (3) HTN (hypertension): Code(s): I10 - Essential (primary) hypertension Category: Medical Plan: Restart amlodipine at 2.5 mg follow-up in 1 week Medications: New amlodipine 2.5 mg PO DAILY 90 tabs 0RF Refilled amoxicillin-pot clavulanate 875-125 mg 1 tab PO BID 14 tabs 0RF Discontinued amlodipine Discontinued Reason: Doctor's Order 5 mg PO DAILY 90 tabs 1RF
[2024-12-04 13:39] VITALS: BP 128/70; PULSE 64; RESP 20; TEMP 36.5; O2SAT 100; BMI 42.1
--- OUTSIDE RECORDS SUMMARY | 2024-12-04 15:39 | XMS_ITS ---
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 Name Role Phone Viola Mack MD Primary Care Provider Unavaila ble Black, Katharina Unavailable [phone] Allergies Allergen (clinical drug ingredient) Drug/Non Drug [...] Ordered Date Performed Result Body Sit e 13120-YCLDBEX NAIL, 6 OR MORE 02/24/2024 N/A Encounters Encounter Location Date Provider Diagnosis [facility] [address] [address] 02/24/2024 Katharina De La Rosa Tinea unguium [...] Treatment Pending Test Test Name Order Date 85907-[id number] NAIL, 6 OR MORE 02/24/2024 Next Appt Details Follow Up: prn, Reason: Provider Name:Katharina De La Rosa , 12/28/2024 11:30:00 AM, [address] [place] [address], [id number], Procedure Notes * Category Sub-Category Detail Notes [...] as necessary. Patient chooses, no pharmaceutical tx (24755) Progress Notes * Radha BLANDON EDOB: (73 yo F)Acc No.[id number]:02/24/2024 Progress Note Patient:?Rdaha Blandon Provider:?Katharina De La Rosa DPM :[id number]???Age:73 Y???Sex:Female D ate:02/24/2024 [address] [place], [place] [address] Pcp:Viola Mack MD Subjective: * Chief Complaints: [...] as necessary. Patient chooses, no pharmaceutical tx (50041).? * Procedure Codes:?14159 DEBRI DE NAIL, 6 OR MORE * Follow Up:?prn * Images: * Sign off status: Completed true * Provider:?Katharina De La Rosa DPM Date:?2023 Generated for William ingram/Kaity/Buditting on:?12/04/2024 03:39 PM EST History and Physical Notes * [...]
--- OUTSIDE RECORDS SUMMARY | 2024-12-04 15:39 | XMS_ITS ---
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 Name Role Phone Viola Mack MD Primary Care Provider Unavaila ble Black, Katharina Unavailable [phone] Allergies Allergen (clinical drug ingredient) Drug/Non Drug [...] shoes causing difficulty standing/walking, Open sore, Ingrown Nail, Swelling Medications Medication SIG (Take, Route, Frequency, Duration) Notes Start Date End Date Status Gabapentin 600 MG 1 tablet Orally Once a day for 30 day(s) Not-Taking Farxiga 5 MG 1 tablet Orally Once a day Not-Taking Aspirin 81 MG 1 tablet Orally Once a day Not-Taking hydrOXYzine HCl 25 MG 1 tablet as needed Orally every 8 hrs Not-Taking Norvasc 10 MG 1 tablet Orally Once a day Not-Taking Walking Boot/Pneumatic As directed Wear Daily for Until further notice 10/10/2023 Not-Taking Medrol masha 4mg as directed orally a s directed for 6 days 10/10/2023 Not-Taking Tylenol PM Extra Strength 500-25 MG 1 tablet at bedtime as needed Orally Once a day Active Multivitamin Adult - Orally Active Lisinopril 10 MG 1 tablet Orally Once a day Active Atenolol Active Glucosamine Sulfate 750 MG 1 capsule with a meal Orally Once a day Active amLODIPine Besylate 10 MG 5 mL Orally On ce a day for 30 days Active Charis Allergy 180 MG 1 tablet Orally O nce a day for 30 day(s) Active Eliquis Active Compression Stockings 20-30mm Hg 1 pair wear daily for 30 days Active Social History Tobacco Use: Social History Observation Description Date Details (start date - stop date) Never Smoker NA - NA Tobacco Use/Smoking Question Answer Notes Are you a: nonsmoker Additional Findings: Tobacco Non-User Current no n-smoker Tobacco use other than smoking: Question Answer Notes Are you an other tobacco user? No Vital Signs Height 5ft8in in 09/21/2024 Weight 265 lbs 09/21/2024 BMI 40.29 kg/m2 09/21/2024 Blood pressure systolic 172 mm Hg 09/21/20 24 Blood pressure diastolic 56 mm Hg 024 Procedures Procedure Date Ordered Date Performed Result Body Sit e 76061-WZPYMQG NAIL, 6 OR MORE 09/21/2024 N/A 53372-Pcvqiilp Plate 09/21/2024 N/A 41624- Debride <25 sq cm 09/21/2024 N/A Encounters Encounter Location Date Provider Diagnosis [facility] [address] [place] [address] 09/21/2024 Katharina Black Pressure injury of right foot, stage 1 L89.891 ; Edema, lower extremity R60.0 ; Tinea unguium B35.1 ; Pain in right toe(s) M79.674 ; Pain in left toe(s) M79.675 and Ingrown nail L60.0 Assessments Encounter Date Diagnosis (ICD Code) Assessment Notes Treatment Notes Treatment Clinical Notes Section Notes 09/21/2024 Pressure injury of right foot, stage 1 (ICD-10 - L89.891) Response to treatment - Improvement Patient Educated with: WOUND CARE INSTRUCTIONS.p df (WOUND CARE INSTRUCTIONS.p df) 09/21/2024 Edema, lower extremity (ICD-10 - R60.0) 09/21/2024 Tinea unguium (ICD-10 - B35.1) 09/21/2024 Pain in right toe(s) (ICD-10 - M79.674) 09/21/2024 Pain in left toe(s) (ICD-10 - M79.675) 09/21/2024 Ingrown nail (ICD-10 - L60.0) Plan Of Treatment Medication Medication Name Sig Start Date Stop Date Notes Compression Stockings 20-30mm Hg 1 pair wear daily for 30 days Treatment Notes Assessment Notes Pressure injury of right foot, stage 1 P atient Educated with: WOUND CARE INSTRUCTIONS.pdf (WOUND CARE INSTRUCTIONS.pdf) Pending Test Test Name Order Date 88859-RQOYIXA NAIL, 6 OR MORE 09/21/2024 05165-Vdlewfer Plate 09/21/2024 68352- Debride <25 sq cm 09/21/2024 Next Appt Details Follow Up: 2 Weeks,prn, Reas on: Provider Name:Katharina Beard Rj , 12/28/2024 11:30:00 AM, [address] [place] [address], [id number], Procedure Notes * Category Sub-Category Detail Notes [...] Motrin was recommended for pain or discomfort (38068) , Pt DEFERS matricectomy , Anesthesia was accomplished TOP ICALLY with Lidocaine Hydrochloride Jelly 2 percent Location Lateral nail border , T5 Debride Nail 6-10 Nail debridement Due to the cl inical pathology outlined in the exam findings, performance of this nail treatment is medically necessary as its management by an unskilled/untrained nonprofessional would put this patients foot and overall health at risk. Therefore, debridement to affected nail(s), as described in exam ( T6, T7, T9,TA, T1 T4 ), was performed exclusively by the physician of record to reduce/remove overall nail length, girth, thickness, subungual debris, and necrotic tissue, by manual and/or electrical means through the use of a nail nipper and/or dremel-type salt grinder, to a more viable healthy nail plate or bed tissue 6-10 nails in total. Silver nitrate was used for any petechial bleeding as necessary. Definitive antifungal treatment options, both pharmaceutical and surgical, have been reviewed and discussed with the patient. The patient solely prefers the use of intermittent/as needed professional debridement services for their nail condition and understands the need for additional periodic treatments to maintain effectiveness in symptomatic relief - 87721 Debride skin< 25 sq cm Open wound [...] achieved through direct pressure. Post debridement measurements: 5mm x 5mm x 2mm. Character of the wound post debridement is stable (69721) Progress Notes * CHAOJENNRadha GUSTAFSON EDOB: (74 yo F)Acc No.[id number]:09/21/2024 Progress Note Patient:Radha PADILLA Provider:?Katharina De La Rosa DPM :1950???Age:74 Y???Sex:Female D ate:09/21/2024 Address:[address] [place] [address] [id number] Pcp:Viola Mack MD Subjective: * Chief Complaints: * ???Painful nail(s) aggrevate d by shoes causing difficulty standing/walkingOpen soreIngrown NailSwelling * HPI: ???Painful Nails:?Pt States Last PCP Visit:?Date:?09/07/2024 ???Skin problems:?Treatments:?none.?Swelling:?Location:?Both feet/leg.?Duration:?several weeks.?Course:?worse.? * ROS:?General/Constitutional:?Nausea?denies.?Vomiting?denies.?Hunger Thirst?denies.?Loss appetite?denies.?Chills?denies.?Fatigue?denies.?Fever?denies.?Night Sweats?denies.?Unexplained weight loss?denies.?Unexplained weight gain?denies.?HEENTM:?Dentures?denies.?Dizziness?denies.?Glasses/contacts?denies.?Retinopathy?de nies.?Blurred/double vision?denies.?TMJ?denies.?Discharge/drainage?denies.?Implants?denies.?Sore throat?denies.?Dental implants?denies.?Hard of hearing ?denies.?Difficulty chewing/swallowing/speaking?denies.?Nose bleeds?denies.?Sore mouth?denies.?Respiratory:?On Oxygen?denies.?Pneumonia/pleurisy?denies.?Bronchitis?denies.?Emphysema?denies.?C oughing?denies.?Cough blood?denies.?Shortness of breath?denies.?Wheezing?denies.?Cardiovascular:?Pacemaker?denies.?MVP?denies.?WPW?denies.?CHF?denies.?Heart attack?denies.?Septal defect?denies.?Rapid beat?denies.?Chest pain ?denies.?Atrial Fib.?denies.?Murmur/Palpitations?denies.?Gastrointestinal:?Hemorrhoids?denies.?Stomach/Abdominal pain?denies.?Dark blood stool?denies.?Irritable bowel ?denies.?Constipation?denies.?Diarrhea?denies.?Hematology:?Swelling?denies.?Clots?denies.?Varicose Veins?denies.?Bruising?denies.?Bleeding problem?denies.?Genitourinary:?Blood urine?denies.?Frequent/Painfu/urination/bladder control?denies.?Kidney stones?denies.?Infection (UTI)?denies.?Nephropathy?denies.?sex trans dis (STD)?denies.?Prostate?denies.?Musculoskeletal:?Hammertoes?denies.?Bunions?denies.?Back Pain?admits.?Muscle Cramps/ Resting?denies.?Muscle cramps / walking?denies.?Generalized aches and pains?admits.?Weakness?denies.?Integ.:?Canales?denies.?Scars?denies.?Corns/calluses?admits.?Ingrown nails?denies.?Painful nails?denies.?Open Sores?denies.?Rashes?denies.?Neurologic:?Difficulty sleeping?denies.?Brain disorder?denies.?Numbness?denies.?Balance trouble?denies.?Confusion?denies.?Fainting/blackouts?denies.?Tingling?denies.?Tr emors?denies.? * Medical History:? * Surgical History:?Lithotrips y 2019eye surgery, lenses 09/28 * [place]Major Diagno stic [place] [place] 10[place]11[place]23 * Family History:?Mother: dece ased, kidney disease, diagnosed with Other malignant neoplasm of unspecified site, Unspecified essential hypertension, Unspecified heart disease, Unspecified cerebral artery occlusion with cerebral infarction, Family history of arthritis.?Father: , poor circulation, foot problems.? * Social History:?Tobacco Use:?Tobacco Use/Smoking?Are you a:?nonsmoker ?Additional Findings: Tobacco Non-User?Current non-smoker ?Tobacco use other than smoking?Are you an other tobacco user??No * Medications:?TakingAtenolol Eliquis Charis Allergy 180 MG Tablet 1 tablet Orally Once a day amLODIPine Besylate 10 MG Tablet 5 mL Orally Once a day Glucosamine Sulfate 750 MG Capsule 1 capsule with a meal Orally Once a day Lisinopril 10 MG Tablet 1 tablet Orally Once a day Multivitamin Adult - Tablet Orally Tylenol PM Extra Strength 500-25 MG Tablet 1 tablet at bedtime as needed Orally Once a day Taking Atenolol Taking Eliquis Taking Charis Allergy 180 MG Tablet 1 tablet Orally Once a day Taking amLODIPine Besylate 10 MG Tablet 5 mL Orally Once a day Taking Glucosamine Sulfate 750 MG Capsule 1 capsule with a meal Orally Once a day Taking Lisinopril 10 MG Tablet 1 tablet Orally Once a day Taking Multivitamin Adult - Tablet Orally Taking Tylenol PM Extra Strength 500-25 MG Tablet 1 tablet at bedtime as needed Orally Once a day Not-Taking/PRNMedrol masha 4mg Tablet Therapy Pack as directed orally as directed Walking Boot/Pneumatic As directed Wear Daily Farxiga 5 MG Tablet 1 tablet Orally Once a day Gabapentin 600 MG Tablet 1 tablet Orally Once a day Norvasc 10 MG Tablet 1 tablet Orally Once a day hydrOXYzine HCl 25 MG Tablet 1 tablet as needed Orally every 8 hrs Aspirin 81 MG Tablet Chewable 1 tablet Orally Once a day Medication List reviewed and reconciled with the patientNot-Taking/PRN Medrol masha 4mg Tablet Therapy Pack as directed orally as directed Not-Taking/PRN Walking Boot/Pneumatic As directed Wear Daily Not-Taking/PRN Farxiga 5 MG Tablet 1 tablet Orally Once a day Not-Taking/PRN Gabapentin 600 MG Tablet 1 tablet Orally Once a day Not- Taking/PRN Norvasc 10 MG Tablet 1 tablet Orally Once a day Not-Taking/PRN hydrOXYzine HCl 25 MG Tablet 1 tablet as needed Orally every 8 hrs Not-Taking/PRN Aspirin 81 MG Tablet Chewable 1 tablet Orally Once a day Medication List reviewed and reconciled with the patient * Allergies:?ErythromycinBiaxi nAzithromycinMetoprolol: rash - Side EffectsPrednisone: rapid heart beat - Side EffectsDoxycycline Calcium: stomach upset - Side Effectsyes[Allergies Verified] Objective: * Vitals:?Ht: 5ft8in, Wt:265, BMI:40.29, Shoe size: 12, BP:172/56mm Hg, Ht-cm: 172.72 cm, Wt-k.2 kg. * Examination: ???General Examination: ?GENERAL APPEARANCE:?Reveals a pleasant, alert, well nourished, well- developed, well hydrated individual, who demonstrates proper attention to hygiene/body habitus, and is in no acute distress, Pt serves as own historian for office visit today.?ORIENTED:?person, place, and time.?Nails: ?NAILS are:?elongated,overgrown,dystrophic,greater than 3mm thick,discolored and friable with crumbly malodorous subungual debris, with pain on palpation,T6, T7, T9,TA, T1 T4.?Dermatologic: ?SKIN FINDINGS:?Skin exam reveals normal color, texture, elasticity, and turgor. There are no masses, nor excrescences. The interspaces are clear, B/L.?ULCER:? LOCATION, 1 MTH, Plantar?RIGHT, , SIZE, 4mm X 4mm X 1-2mm, BASE, granular, RIM, hyperkeratotic, UNDERMINING, absent, TRACKING, Full thickness breakdown of skin, DRAINAGE, serosanguineous, mild, NECROTIC TISSUE, loosely-adherent, yellow slough, MALODOR, absent, CALOR, absent, ERYTHEMA, absent, PAIN ON PALPATION, mild.?Ingrown Nail: ?INSPECTION:?Reveals nail incurvation, pain on palpation, groove hypertrophy, groove ischemia, Lateral nail border, T5.?Vascular: ?DP PULSES(B):?1/4, B/L.?PT PULSES(B):?1/4, B/L.?CAPILLARY FILL TIME:?immediate, all digits, B/L.?TROPHIC CONDITION-TEXTURE/ELASTICITY/TURGOR/HAIR GROWTH(B):?normal, B/L.?TEMPERTURE GRADIENT(C):?normal, warm to cool, proximal to distal, B/L, B/L.?EDEMA(C):?3/4, non-pitting, B/L, Leg(s), Ankle(s), Foot.?BANDAR'S SIGN:?absent, B/L.?PALPABLE CORDS:?absent, B/L.? Assessment: * Assessment: 1.?Pressure injury of right foot, stage 1 - L89.891???Notes :Response to treatment - Improvement???2.?Edema, lower extremity - R60.0 (Primary)???Specify :Acute problem, Uncomplicated (3), Rx Management (4)???3.?Tinea unguium - B35.1???4.?Pain in right toe(s) - M79.674???5.?Pain in left toe(s) - M79.675???6.?Ingrown nail - L60.0??? Plan: * Treatment: 2.?Pressure injury of right foot, stage 1?Procedure: 86969- Debride <25 sq cm Notes: Patient Educated with: WOUND CARE INSTRUCTIONS.pdf (WOUND CARE INSTRUCTIONS.pdf)?? 3.?Tinea unguium?Procedure: 66186-YXSPMFL NAIL, 6 OR MORE 4.?Ingrown nail?Procedure: 49460-Cxaxudjw Plate * Procedures:?Debride Nail 6-10:?Nail debridement?Due to the clinical pathology outlined in the exam findings, performance of this nail treatment is medically necessary as its management by an unskilled/untrained nonprofessional would put this patients foot and overall health at risk. Therefore, debridement to affected nail(s), as described in exam ( T6, T7, T9,TA, T1 T4 ), was performed exclusively by the physician of record to reduce/remove overall nail length, girth, thickness, subungual debris, and necrotic tissue, by manual and/or electrical means through the use of a nail nipper and/or dremel- type salt grinder, to a more viable healthy nail plate or bed tissue 6-10 nails in total. Silver nitrate was used for any petechial bleeding as necessary. Definitive antifungal treatment options, both pharmaceutical and surgical, have been reviewed and discussed with the patient. The patient solely prefers the use of intermittent/as needed professional debridement services for their nail condition and understands the need for additional periodic treatments to maintain effectiveness in symptomatic relief - 08462.?Debride skin< 25 sq cm:?Open wound?Physician of record [...] achieved through direct pressure. Post debridement measurements: 5mm x 5mm x 2mm. Character of the wound post debridement is stable (88678).?Nail Avulsion:?Location?Lateral nail border , T5.?Anesthesia?was accomplished TOPICALLY with Lidocaine Hydrochloride Jelly 2 percent?.?Procedure?A fine sterile elevator was placed between the [...] Motrin was recommended for pain or discomfort (95175) , Pt DEFERS matricectomy ,.? * Procedure Codes:?42042 DEBRI DE NAIL, 6 OR MORE, Modifiers: XS 99615 Avulsion Plate, Modifiers: T5 75278 ACTIVE WOUND CARE/20 CM OR <, Modifiers: XS * Preventive Medicine:? ??Counseling:?Discussion:?-13: Office or other outpatient visit for the evaluation and management of an established patient, which required a medically appropriate history and/or examination and LOW level of DECISION MAKING for: 1 STABLE ACUTE UNCOMPLICATED PROBLEM, 2 OR MORE MINOR PROBLEMS, OR 1 STABLE CHRONIC PROBLEM, THAT POSE(S) A LOW RISK FOR MORBIDITY/MORTALITY. The visit on the day of the encounter encompassed interpreting the data and educating the patient as to the nature of their condition, treatment options available according to their individual PMH, meds, allergies, and overall health/living conditions, as well as any potential risks or complications that may occur from a failure to adhere to, and participate in, the recommended course of therapy. The discussion included a complete verbal, and/or written explanation of the examination results, any x-rays taken, the proposed diagnosis, and outline of the treatment plan. A schedule for future care needs was also explained. The patient verbalized an understanding of the instructions at this time and agreed to be an active participant in their treatment. If the patient should think of any questions or concerns after the visit, I have encouraged the patient to call the office.?Edema:?I explained to the patient the possible etiologies for Edema, including genetic, surgery, infection, medications, heart disease, kidney disease, excess dietary salt, and various cancer treatments. We discussed the risks/benefits of the treatment options available including rest, elevation, OTC compression stockings, Rx compression stockings, Unna Boot application, diet modification to limit salt intake, and Rx segmental compression boots provided the absence of CHD in the patients medical history. The advantages and disadvantages of each option were discussed and the patients questions re: risk of infection(cellulitis), medications, diet, and the daily use of compression stockings(not to be worn at night), and consistency in these home treatment regimens for optimal success were answered to their verbally confirmed satisfaction. Given the risk for vessel clotting disease, the patient was instructed to go immediately to the ER of hospital should they experience any calf pain, SOB, or discomfort. Any changes to the patients medication regimen will be performed by the PCP or patients kidney/heart/cancer specialist. The patient has elected to receive compression stockings. Such were Rxed today with instructions for use also, Recommened Tubular compression stockings.?Ulcer:?Given recent successful results to treatment, The patient is to cont the local wound care as directed till completely healed.? * Follow Up:?2 Weeks,prn * Images: * Sign off status: Completed true * Provider:?Katharina De La Rosa DPM Date:?2023 Generated for William ingram/Kaity/Javi on:?12/04/2024 03:38 PM EST History and Physical Notes * HPI (History of Present Illness) Category Sub-Category Detail Notes Category Not es Painful Nails Pt States Last PCP Visit: Date:: 09/07/2024 Skin problems Treatments: none Swelling Location: Both feet/leg Duration: several weeks Course: worse Examination Category Sub-Category Detail Notes Category Not es Ingrown Nail INSPECTION: Reveals nail inc urvation, pain on palpation, groove hypertrophy, groove ischemia, Lateral nail border, T5 Dermatologic SKIN FINDINGS: Skin exam reveal s normal color, texture, elasticity, and turgor. There are no masses, nor excrescences. The interspaces are clear, B/L ULCER: LOCATION, 1 MTH, Sharad ntar RIGHT, , SIZE, 4mm X 4mm X 1-2mm, BASE, granular, RIM, hyperkeratotic, UNDERMINING, absent, TRACKING, Full thickness breakdown of skin, DRAINAGE, serosanguineous, mild, NECROTIC TISSUE, loosely-adherent, yellow slough, MALODOR, absent, CALOR, absent, ERYTHEMA, absent, PAIN ON PALPATION, mild General Examination GENERAL APPEARANCE: Reveals a pleasant, alert, well nourished, well-developed, well hydrated individual, who demonstrates proper attention to hygiene/body habitus, and is in no acute distress, Pt serves as own historian for office visit today ORIENTED: person, place, and t karen Vascular DP PULSES (B): 1/4, B/L PT PULSES (B): 1/4, B/L CAPILLARY FILL TIME: immediate, all digi ts, B/L TEMPERTURE GRADIENT (C): normal, warm to cool, proximal to distal, B/L, B/L TROPHIC CONDITION-TEXTURE/ELASTICITY/TURGOR/HAIR GROWTH (B): normal, B/L EDEMA (C): 3/4, non-pitting, B/ L, Leg(s), Ankle(s), Foot BANDAR'S SIGN: absent, B/L PALPABLE CORDS: absent, B/L Nails NAILS are: elongated,overgr own,dystrophic,greater than 3mm thick,discolored and friable with crumbly malodorous subungual debris, with pain on palpation,T6, T7, T9,TA, T1 T4
--- OUTSIDE RECORDS SUMMARY | 2024-12-04 15:39 | XMS_ITS | Patient Health Record ---
Author Organization [facility] Address [address] [place] [address] Support Name Relationship Address Phone DEVORA DUBOSE Guarantor Unknown [phone] Reason For Referral No Information Medications Medication SIG (Take, Route, Fr equency, Duration) Notes Start Date End Date Status Fluconazole 50MG 5ML ORAL WEEKLY for 7 Cas-MJ 12/19/2011 Active Immunizations Vaccine Route Administration Date Status Comme nts Influenza, live, intranasal Intramuscular 12/19/2011 Pendi ng Problems Problem Type SNOMED Code ICD Code Onset Dates Problem Status W/U Status Risk Notes Problem Gynecological examination normal ([id number]) Routine gynecological examination (V72.31) Active confirmed Diag Plan Of Treatment No Information Insurance Providers Payer Name Payer Address Payer Phone Subscriber Number Group Number Insured Name Patient Relationship to Insured Coverage Start Date Coverage End Date [facility] [employer] [address] [place], [place] [id number] DEVORA DUBOSE Self - patient is the insured
--- OUTSIDE RECORDS SUMMARY | 2024-12-04 15:39 | XMS_ITS | Patient Health Record ---
Author Organization [facility] Address [address] [place] [address] Care Team Providers Care Pump Assembler Name Role Phone Viola Mack MD Primary Care Provider Unavaila marc Black, Katharina Unavailable [phone] Allergies Allergen (clinical drug ingredient) Drug/Non Drug [...] primary osteoarthritis of the ankle and/or foot (446939147) Primary osteoarthrit is, left ankle and foot (M19.072) Active confirmed Problem Non-pressure ulcer lower limb (569510603) Non-pressure chronic ulcer of other part of right foot limited to breakdown of skin (L97.511) Active confirmed Problem Acquired hammer toe of right foot (0554538102116481 ) Other hammer toe(s) (acquired), right foot (M20.41) Active confirmed Problem Acquired hammer toe of left foot (0607757725972395 ) Other hammer toe(s) (acquired), left foot (M20.42) Active confirmed Problem Pressure injury of right foot stage I (disorder) (651773362997511) Pressure injury of right foot, stage 1 (L89.891) Active confirmed Response to treatment - Improvement Vital Signs Blood pressure diastolic 56 mm Hg 09/21/2024 Height 5ft8in in 09/21/2024 Blood pressure systolic 172 mm Hg 09/21/2024 Weight 265 lbs 09/21/2024 BMI 40.29 kg/m2 09/21/2024 Procedures Procedure Date Ordered Date Performed Result Body Sit e 49750-FLRGZFL NAIL, 6 OR MORE 02/24/2024 N/A 64946-KQDJKMM NAIL, OR MORE 06/15/2024 N/A 19189-Jsumdiem Plate 06/15/2024 N/A 87557- Debride <25 sq cm 06/15/2024 N/A 25557-BQBTTEB NAIL, 6 OR MORE 09/21/2024 N/A 84564-Mmvdsnfc Plate 09/21/2024 N/A 52791- Debride <25 sq cm 09/21/2024 N/A Encounters Encounter Location Date Provider Diagnosis [address] [address] 02/24/2024 Katharina Black Tinea unguium B35.1 ; Pain in right toe(s) M79.674 and Pain in left toe(s) M79.[address] [address] 06/15/2024 Katharina Black Tinea unguium B35.1 ; Pressure injury of right foot, stage 1 L89.891 ; Pain in right toe(s) M79.674 ; Pain in left toe(s) M79.675 and Ingrown nail L60.[address] [address] 09/21/2024 Katharina Black Pressure injury of right [...] Treatment Pending Test Test Name Order Date 61022-RMXXTIG NAIL, 6 OR MORE 08/07/2021 16026-YHEUMHD NAIL, 6 OR MORE 12/11/2021 96201-JYKFXSW NAIL, 6 OR MORE 04/16/2022 30511-VGMLOIU NAIL, 6 OR MORE 08/20/2022 72893-OYDQLLG NAIL, 6 OR MORE 12/31/2022 25021-GWALKXG NAIL, 6 OR MORE 05/06/2023 82877-OZOCVZP NAIL, 6 OR MORE 11/14/2023 37224-FPHNFFD NAIL, 6 OR MORE 02/24/2024 09273-JYMRVAR NAIL, 6 OR MORE 06/15/2024 57325-DWZPWZD NAIL, 6 OR MORE 09/21/2024 44989-Ywwpktoz Plate 09/21/2024 06374-Gpdlmmtv Plate 05/06/2023 93993-Kevyvnxv Plate 06/15/2024 00386-Kppwvylc Plate 12/31/2022 83090- Debride <25 sq cm 12/11/2021 67385- Debride <25 sq cm 05/06/2023 09905- Debride <25 sq cm 12/31/2022 99959- Debride <25 sq cm 08/20/2022 04944- Debride <25 sq cm 04/16/2022 12343- Debride <25 sq cm 09/04/2021 82992- Debride <25 sq cm 04/16/2018 88464- Debride <25 sq cm 05/25/2021 12060- Debride <25 sq cm 08/07/2021 31400- Debride <25 sq cm 09/21/2024 97767- Debride <25 sq cm 06/15/2024 41501,H8253-EJS TENDON SHEATH/LIGAMENT 1 10/07/2020 90236,F5596-HFS TENDON SHEATH/LIGAMENT 0 05/25/2021 50199,K9131-MAU TENDON SHEATH/LIGAMENT 1 11/04/2020 Next Appt Details Provider Name:Katharina De La Rosa , 12/28/2024 11:30:00 AM, [address] [place] [address], [phone], Insurance Providers Payer Name Payer Address Payer Phone Subscriber Number Group Number Insured Name Patient Relationship to Insured Coverage Start Date Coverage End Date [facility]) [address] [place], [place] [id number] [facility] Radha Blandon Self - patient is the insured Medical (General) History Medical History History ICD Code Anemia Anxiety disorder Arthritis Back,Hip,and Knee pain Chicken pox High blood pressure Kidney stones Measles Mumps Broken bones Sciatica A fib Surgical History Surgery Date(Month/Year) Lithotripsy 2019 eye surgery, lenses 09/28 Hospitalization History Reason Date(Month/Year) [facility] [place]- rapid heart rate 10/11/23
--- OUTSIDE RECORDS SUMMARY | 2024-12-04 15:39 | XMS_ITS ---
Author Organization [facility] Address [address] [place] [address] Care Team Providers Care Medical Affairs Manager Name Role Phone Viola Mack MD Primary Care Provider Unavaila ble Black, Katharina Unavailable [phone] Allergies Allergen (clinical drug ingredient) Drug/Non Drug [...] injury of right foot stage I (disorder) (10240020355 4102) Pressure injury of right foot, stage 1 (L89.891) Active confirmed Response to treatment - Improvement Vital Signs Height 5ft 8in in 06/15/2024 Weight 265 lbs 06/15/2024 BMI 40.29 kg/m2 06/15/2024 Blood pressure systolic 148 mm Hg 06/15/20 24 Blood pressure diastolic 54 mm Hg 024 Procedures Procedure Date Ordered Date Performed Result Body Sit e 11485-JIOFMTQ NAIL, 6 OR MORE 06/15/2024 N/A 20483-Mjjcncif Plate 06/15/2024 N/A 15348- Debride <25 sq cm 06/15/2024 N/A Encounters Encounter Location Date Provider Diagnosis [facility] [address] [place] [address] 06/15/2024 Katharina Black Tinea unguium B35.1 ; [...] INSTRUCTIONS.pdf) Pending Test Test Name Order Date 53020-JNNGGLV NAIL, 6 OR MORE 06/15/2024 05734-Ktivfrqj Plate 06/15/2024 29097- Debride <25 sq cm 06/15/2024 Next Appt Details Follow Up: 6 Weeks, Reason: Provider Name:Katharina Beard Rj , 12/28/2024 11:30:00 AM, [address] [place] [address], [phone], Procedure Notes * Category Sub-Category Detail Notes [...] Motrin was recommended for pain or discomfort (16626) , Pt DEFERS matricectomy Anesthesia was accomplished [...] as necessary. Patient chooses, no pharmaceutical tx (09905) Debride skin< 25 sq cm Open wound [...] of the wound post debridement is stable (82669) Progress Notes * CHAOJENNRadha GUSTAFSON EDOB: (73 yo F)Acc No.[id number]:06/15/2024 Progress Note Patient:?Radha Blandon Provider:?Katharina De La Rosa DPM :1950???Age:73 Y???Sex:Female D ate:06/15/2024 Address:[address] [place], [place] [address] Pcp:Viola Mack MD Subjective: * Chief Complaints: * ???Painful nail(s) aggrevate d by shoes causing difficulty standing/walkingOpen soreIngrown Nail * HPI: ???Painful Nails:?Pt States Last PCP Visit:?Date:?03/03/2024 ???Skin problems:?Treatments:?none.? * Medical History:? * Surgical History:?Lithotrips y 2019eye surgery, lenses 09/28 * Hospitalization/Major Diagno stic Procedure:?[facility] [place]- rapid heart rate 10/11/23 [...] - L60.0? Plan: * Treatment: 2.?Tinea unguium?Procedure: 45458-VVPLZYW NAIL, 6 OR MORE 3.?Ingrown nail?Procedure: 19879-Uozzdwtu Plate * Procedures:?Debride Nail 6-10:?Nail debridement?Nail debridement performed extensively to reduce/remove overall nail length, girth, thickness, subungual debris, and necrotic tissue, by manual and electrical means through the use of a nail nipper and/or dremel, to more viable healthy nail plate or bed tissue 1-5. Silver nitrate used for any petechial bleeding as necessary. Patient chooses, no pharmaceutical tx (03975).?Debride skin< 25 sq cm:?Open wound?Physician of record [...] of the wound post debridement is stable (93631).?Nail Avulsion:?Location?Lateral nail border , TA.?Anesthesia?was accomplished TOPICALLY [...] Motrin was recommended for pain or discomfort (25532) , Pt DEFERS matricectomy.? * Procedure Codes:?85527 DEBRI DE NAIL, 6 OR MORE, Modifiers: XS 76728 Avulsion Plate, Modifiers: [place] [address] ACTIVE WOUND CARE/20 CM OR <, Modifiers: [...] DPM Date:?2023 Generated for William ingram/Kaity/Javi on:?12/04/2024 03:39 PM EST History and Physical [...]
--- OUTSIDE RECORDS SUMMARY | 2024-12-04 15:39 | XMS_ITS | Clinical Summary ---
Author Organization [facility] Address [address] [place] [address] Phone Care Team Providers Care Museum Tour Guide Name Role Phone Viola Mack MD Primary Care Provider [phone] Allergies Active Allergy Reactions Criticality Noted Date [...] Visit [facility] [address] [phone] Justin Espitia MD [address] [address] Health Maintenance Due Date Last [...] to complete this topic Insurance [facility] [employer] Care Teams Museum Tour Guide Relationship Specialty Start Date End Date Viola Mack MD [address] [place] [address] PCP - General Internal Medicine 08/21/22
--- OUTSIDE RECORDS SUMMARY | 2024-12-04 15:40 | XMS_ITS | Clinical Summary ---
Author Organization [facility] Address [address] [place] [address] Care Team Providers Care Railroad Operating Engineer Name Role Phone Unavailable Primary Care Provider Unavailabl e Surgical History Surgery Date Site/Laterality Comments OTHER SURGICAL HISTORY 1999 PROCEDURE: CT ERCP DESTRUCTION/LITHOTRIPSY CALCULI ANY METHOD OTHER SURGICAL HISTORY 03/22 PROCEDURE: MAMMOGRAM COLONOSCOPY 01/07 PROCEDURE: CT COLONOSCOPY STOMA DX INCLUDING COLLJ SPEC SPX; COMMENT: [facility] COLONOSCOPY 02/11/2014 PROCEDURE: CT COLONOSCOPY FLX DX W/COLLJ SPEC WHEN PFRMD; COMMENT: normal Medical History Medical History Date Comments Calculus of kidney DX:Calculus o f kidney Dermatophytosis of nail 04/04/2006 DX:[place] tophytosis of nail Primary localized osteoarthr osis, [...] Upcoming Encounters Date Type Department Care Team ([facility] st Contact Info) Description 05/19/2025 10:30 AM EDT Appointment Radiology Department [address] [address] Health Maintenance Due Date Last Done Comments [...] classified as having normal bone density. [facility] Department of Internal Medicine recommends using [...] beclassified as having normal bone density. [facility] Department of Internal Medicine recommendsusing National [...]
== END 2024-12-04 14:04 | disposition home or self-care (01) ==
PROVIDERS: PCP Internal Medicine; Visit Provider Internal Medicine
DX: L03.90 Cellulitis, unspecified (principal); R60.9 Edema, unspecified; I10 Essential (primary) hypertension

== ENCOUNTER 2024-12-07 12:39 | Outpatient (AMB) | payer OTHER, SELFPAY ==
--- NOTE | 2024-12-07 13:20 | MHC.OFFVIS ---
Vital Signs 12/07/24 13:21 Height 5 ft 8 in Weight 273 lb 13.026 oz BMI 41.6 BP 142/65 H Blood Pressure Location Lt brachial Position Sitting Pulse 61 Pulse Source Monitor Intake Visit Reasons: 6m follow up Multifocal Button Inspector Required: No Allergies metoprolol Allergy (Severe, Verified 12/07/24 13:29) Rash doxycycline Adverse Reaction (Intermediate, Verified 12/07/24 13:29) Abdominal Pain methylprednisolone Adverse Reaction (Intermediate, Verified 12/07/24 13:29) rapid heart rate erythromycin base Adverse Reaction (Unknown, Verified 12/07/24 13:29) upset stomach nausea Medication List - Last Reconciled 12/07/24 by Daniella Murphy, MEDICAL STAFF SERVICES COORDINATOR-C amlodipine 2.5 mg PO DAILY amoxicillin-pot clavulanate 875-125 mg 1 tab PO BID apixaban (Eliquis) 5 mg PO BID atenolol 50 mg PO DAILY desonide 0.05% topical fluconazole 150 mg PO Q3D 2 doses fluticasone propionate 50 mcg/actuation 1 spray intranasal BID PRN furosemide 20 mg PO Q OTHER DAY glucosamine sulfate 750 mg PO ONCE lisinopril 10 mg PO DAILY multivitamin 1 tab PO DAILY HPI HPI 6m follow up: Details: Radha is a 74-year-old female with past medical history of obesity, hypertension, hyperlipidemia, paoxysmal atrial fibrillation, mild obstructive sleep apnea who presents for follow-up Today she reports she has been feeling well since her last visit in June. She has had no recurrent heart palpitations concerns for atrial fibrillation. She denies any bleeding issues with Eliquis use. She denies shortness of breath, chest discomfort, PND, orthopnea. She got a Cat scratch on her left lower leg that became infected and she is currently undergoing treatment with antibiotics. No lightheadedness, presyncope, syncope, falls. She ambulates with a walker. She continues to have issues with bilateral knee pain and low back pain. She is taking her meds as directed. [facility] Medical History SHARIF (obstructive sleep apnea) Retrognathia Atrial fibrillation Chest pain Morbid obesity CKD (chronic kidney disease) stage 3, GFR 30-59 ml/min Hyperlipemia Annual physical exam Mammogram normal DJD (degenerative joint disease), lumbar Anxiety Overweight HTN (hypertension) Surgical History H/O bilateral cataract extraction H/O lithotripsy H/O colonoscopy Family History Father No problems noted. Mother HTN (hypertension) Social History Housing: House Alcohol intake: current Alcohol intake frequency: holidays/special occasions only Patient Tobacco Use Status: Never used Tobacco e-Cigarette/Vaping Use: Never Used Second Hand Smoke Exposure: No service: No Current occupational status: retired Cognitive needs: No Hearing needs: No Vision needs: Yes Review of Systems Const All systems reviewed & are unremarkable except as noted in HPI and below Card Denies chest pain, Denies chest pain at rest, Denies chest pain with activity, Denies rapid heart rate, Denies irregular heart rhythm, Reports leg edema, Denies dyspnea, Denies dyspnea on exertion and Denies orthopnea Resp Denies no additional complaints, Denies dyspnea and Denies dyspnea on exertion GI Denies no additional complaints Musc Denies no additional complaints Physical Exam Vital Signs: Last Vital Signs Pulse 61 12/07/24 13:21 BP 142/65 H 12/07/24 13:21 BMI result Body Mass Index 41.6 Const General: cooperative, healthy appearing, comfortable and no acute distress Orientation/consciousness: patient oriented x3 Neck Neck: Yes normal visual inspection and Yes no JVD Resp Effort & Inspection: normal respiratory effort Auscultation: clear to auscultation bilaterally, no rales, no rhonchi and no wheezes Cardio Rate: regular rate Rhythm: regular rhythm Heart sounds: S1 normal heart sound present, S2 normal heart sound present, no murmurs and no rubs Neuro General: patient oriented x3 Extrem General: Yes normal to inspection and No no pedal edema Psych Appearance: grossly normal Mental Status: mental status grossly normal Speech and movement: Normal speech and movement present Office Procedures EKG Details: Today, read by me, Sinus rhythm, nonspecific ST/ T wave abn rate 61, QTc 412ms 95315-Jcreecpgwurilinzz, Complete Assessment & Plan Assessment & Plan (1) Atrial fibrillation: Comment: 10/11/23 ER visit, started on Eliquis, metoprolol ? allergic reaction, rash Code(s): I48.91 - Unspecified atrial fibrillation Category: Medical Plan: History of paroxysmal atrial fibrillation, 1st noted Oct 2023. At that time she was put on metoprolol for heart rate control and Eliquis for anticoagulation. She had a rash with metoprolol was changed to atenolol. She has done well since that time with no known recurrent AFib. EKG done today showing sinus rhythm with nonspecific ST and T-wave abnormality, rate 61. Last echo 09/2022 showed normal EF, atriums and valves not well visualized. Sleep study shows mild obstructive sleep apnea. She has been evaluated by pulmonology and instructed to sleep on her side. Patient states she will not wear a mask at nighttime. Continue current med management. Will update echo prior to her next visit. Cardiology follow-up 6 months, sooner if needed. (2) Sleep apnea: Code(s): G47.30 - Sleep apnea, unspecified Category: Medical Plan: Recent sleep study showing mild obstructive sleep apnea. It can be treated with conservative measures however she does have newer finding of atrial fibrillation and she has obesity. She was referred pulmonology for evaluation/ treatment of sleep apnea. She tells me she will not be able to wear a mask. She is treating her sleep apnea with weight loss and trying to sleep on her side instead of her back. (3) HTN (hypertension): Code(s): I10 - Essential (primary) hypertension Category: Medical Plan: Mildly elevated today. No medication changes made. Her amlodipine dose was recently do reduced by her PCP due to her leg swelling, cellulitis. She has a follow-up with her PCP later this week. Blood pressure will be re-evaluated at that time and amlodipine or lisinopril dose can be increased if needed. Plan Time spent on chart review, documentation, interview and assessment Coding Level of Care Code Est Pt Level 4 (97692) Complex EM visit Add On G2211 Diagnoses Atrial fibrillation I48.91 Sleep apnea G47.30 HTN (hypertension) I10 CPT Codes EKG - CPT: 66516-Oivumwldpagkkdhja, Complete ([id number]) Time Spent (min) 32
[2024-12-07 13:21] VITALS: BP 142/65; PULSE 61; BMI 41.6
--- OUTSIDE RECORDS SUMMARY | 2024-12-07 14:46 | XMS_ITS ---
Author Organization [facility] Address [address] [place] [address] Care Team Providers Care Account Consultant Name Role Phone Viola Mack MD Primary Care Provider Unavaila ble Black, Kahtarina Unavailable [phone] Allergies Allergen (clinical drug ingredient) Drug/Non Drug [...] injury of right foot stage I (disorder) (23377085782 4102) Pressure injury of right foot, stage 1 (L89.891) Active confirmed Response to treatment - Improvement Vital Signs Height 5ft 8in in 06/15/2024 Weight 265 lbs 06/15/2024 BMI 40.29 kg/m2 06/15/2024 Blood pressure systolic 148 mm Hg 06/15/20 24 Blood pressure diastolic 54 mm Hg 024 Procedures Procedure Date Ordered Date Performed Result Body Sit e 23162-YYCUSSW NAIL, 6 OR MORE 06/15/2024 N/A 33213-Xmueextv Plate 06/15/2024 N/A 36994- Debride <25 sq cm 06/15/2024 N/A Encounters Encounter Location Date Provider Diagnosis [facility] [place] [address] [place] [address] 06/15/2024 Katharina Black Tinea unguium B35.1 ; [...] INSTRUCTIONS.pdf) Pending Test Test Name Order Date 16700-MXJNYSQ NAIL, 6 OR MORE 06/15/2024 11328-Tvgngsqi Plate 06/15/2024 27890- Debride <25 sq cm 06/15/2024 Next Appt Details Follow Up: 6 Weeks, Reason: Provider Name:Katharina Beard Rj , 12/28/2024 11:30:00 AM, [address] [place] [address], [phone], Procedure Notes * Category Sub-Category Detail Notes [...] Motrin was recommended for pain or discomfort (88030) , Pt DEFERS matricectomy Anesthesia was accomplished [...] as necessary. Patient chooses, no pharmaceutical tx (51010) Debride skin< 25 sq cm Open wound [...] of the wound post debridement is stable (21676) Progress Notes * CHAOJENNRadha GUSTAFSON EDOB: (73 yo F)Acc No.[id number]:06/15/2024 Progress Note Patient:?Radha Blandon Provider:?Katharina De La Rosa DPM :1950???Age:73 Y???Sex:Female D ate:06/15/2024 Address:[address] [place], [place] [phone] Pcp:Viola Mack MD Subjective: * Chief Complaints: * ???Painful nail(s) aggrevate d by shoes causing difficulty standing/walkingOpen soreIngrown Nail * HPI: ???Painful Nails:?Pt States Last PCP Visit:?Date:?03/03/2024 ???Skin problems:?Treatments:?none.? * Medical History:? * Surgical History:?Lithotrips y 2019eye surgery, lenses 09/28 * Hospitalization/Major Diagno stic Procedure:?[facility] [place]- rapid heart rate 10/11/23 * Family History:?Mother: [...] - L60.0? Plan: * Treatment: 2.?Tinea unguium?Procedure: 25329-JTYRSPS NAIL, 6 OR MORE 3.?Ingrown nail?Procedure: 82428-Cuzjrvkj Plate * Procedures:?Debride Nail 6-10:?Nail debridement?Nail debridement performed extensively to reduce/remove overall nail length, girth, thickness, subungual debris, and necrotic tissue, by manual and electrical means through the use of a nail nipper and/or dremel, to more viable healthy nail plate or bed tissue 1-5. Silver nitrate used for any petechial bleeding as necessary. Patient chooses, no pharmaceutical tx (34709).?Debride skin< 25 sq cm:?Open wound?Physician of record [...] of the wound post debridement is stable (92999).?Nail Avulsion:?Location?Lateral nail border , TA.?Anesthesia?was accomplished TOPICALLY [...] Motrin was recommended for pain or discomfort (89303) , Pt DEFERS matricectomy.? * Procedure Codes:?13871 DEBRI DE NAIL, 6 OR MORE, Modifiers: XS 14842 Avulsion Plate, [place]ifiers: [place] [address] ACTIVE WOUND CARE/20 CM OR <, Modifiers: [...] Rosa DPM Date:?2023 Generated for William ingram/Kaity/Javi on:?12/07/2024 02:46 PM EST History and Physical Notes * [...]
--- OUTSIDE RECORDS SUMMARY | 2024-12-07 14:46 | XMS_ITS | Patient Health Record ---
Author Organization [facility] Address [address] [place] [address] Support Name Relationship Address Phone DEVORA DUBOSE Guarantor Unknown [phone] Reason For Referral No Information Medications Medication SIG (Take, Route, Fr equency, Duration) Notes Start Date End Date Status Fluconazole 50MG 5ML ORAL WEEKLY for 7 Cas-MJ 12/19/2011 Active Immunizations Vaccine Route Administration Date Status Comme nts Influenza, live, intranasal Intramuscular 12/19/2011 Pendi ng Problems Problem Type SNOMED Code ICD Code Onset Dates Problem Status W/U Status Risk Notes Problem Gynecological examination normal (854572961771884) Routine gynecological examination (V72.31) Active confirmed Diag Plan Of Treatment No Information Insurance Providers Payer Name Payer Address Payer Phone Subscriber Number Group Number Insured Name Patient Relationship to Insured Coverage Start Date Coverage End Date [facility] [address] [place], [place] [id number] DEVORA DUBOSE Self - patient is the insured
--- OUTSIDE RECORDS SUMMARY | 2024-12-07 14:46 | XMS_ITS ---
Author Organization [facility] Address [address] [place] [address] Care Team Providers Care Wellness Nurse Name Role Phone Viola Mack MD Primary Care Provider Unavaila ble Black, Katharina Unavailable [phone] Allergies Allergen (clinical drug ingredient) Drug/Non Drug [...] Ordered Date Performed Result Body Sit e 48160-GLXRIGV NAIL, 6 OR MORE 09/21/2024 N/A 56032-Apeajobq Plate 09/21/2024 N/A 74291- Debride <25 sq cm 09/21/2024 N/A Encounters Encounter Location Date Provider Diagnosis [facility] [place] [address] [place] [address] 09/21/2024 Katharina Black Pressure injury of right [...] INSTRUCTIONS.pdf) Pending Test Test Name Order Date 17886-RVMRVXU NAIL, 6 OR MORE 09/21/2024 18396-Sybvcyfr Plate 09/21/2024 09888- Debride <25 sq cm 09/21/2024 Next Appt Details Follow Up: 2 Weeks,prn, Reas on: Provider Name:Katharina Beard Rj , 12/28/2024 11:30:00 AM, [address] [place] [address], [phone], Procedure Notes * Category Sub-Category Detail Notes [...] Motrin was recommended for pain or discomfort (61269) , Pt DEFERS matricectomy , Anesthesia was [...] use of a nail nipper and/or dremel-type grinder carbon plant, to a more viable healthy nail plate [...] to maintain effectiveness in symptomatic relief - 90504 Debride skin< 25 sq cm Open wound [...] of the wound post debridement is stable (56734) Progress Notes * CHAOJENNRadha GUSTAFSON EDOB: (74 yo F)Acc No.[id number]:09/21/2024 Progress Note Patient:Radha PADILLA Provider:?Katharina De La Rosa DPM :1950???Age:74 Y???Sex:Female D ate:09/21/2024 Address:[address] [place] [address] [phone] Pcp:Viola Mack MD Subjective: * Chief Complaints: [...] surgery, lenses 09/28 * Hospitalization/Major Diagno stic [place] [place] * Family History:?Mother: [...] 2.?Pressure injury of right foot, stage 1?Procedure: 67344- Debride <25 sq cm Notes: Patient Educated with: WOUND CARE INSTRUCTIONS.pdf (WOUND CARE INSTRUCTIONS.pdf)?? 3.?Tinea unguium?Procedure: 96934-HUMXAJW NAIL, 6 OR MORE 4.?Ingrown nail?Procedure: 60086-Epyntugr Plate * Procedures:?Debride Nail 6-10:?Nail debridement?Due to [...] of a nail nipper and/or dremel- type grinder carbon plant, to a more viable healthy nail plate [...] to maintain effectiveness in symptomatic relief - 88971.?Debride skin< 25 sq cm:?Open wound?Physician of record [...] of the wound post debridement is stable (04569).?Nail Avulsion:?Location?Lateral nail border , T5.?Anesthesia?was accomplished TOPICALLY [...] Motrin was recommended for pain or discomfort (51922) , Pt DEFERS matricectomy ,.? * Procedure Codes:?17616 DEBRI DE NAIL, 6 OR MORE, Modifiers: XS 00663 Avulsion Plate, Modifiers: T5 13043 ACTIVE WOUND CARE/20 CM OR <, Modifiers: [...]
--- OUTSIDE RECORDS SUMMARY | 2024-12-07 14:47 | XMS_ITS | Patient Health Record ---
Author Organization [facility] Address [address] [place] [address] Care Team Providers Care Employment Legal Assistant Name Role Phone Viola Mack MD Primary Care Provider Unavaila marc Black, Katharina Unavailable [phone] Allergies Allergen (clinical drug ingredient) Drug/Non Drug [...] primary osteoarthritis of the ankle and/or foot (714590662) Primary osteoarthrit is, left ankle and foot (M19.072) Active confirmed Problem Non-pressure ulcer lower limb (218810309) Non-pressure chronic ulcer of other part of right foot limited to breakdown of skin (L97.511) Active confirmed Problem Acquired hammer toe of right foot (1158542309679300 ) Other hammer toe(s) (acquired), right foot (M20.41) Active confirmed Problem Acquired hammer toe of left foot (2744012781105172 ) Other hammer toe(s) (acquired), left foot (M20.42) Active confirmed Problem Pressure injury of right foot stage I (disorder) (848005374948832) Pressure injury of right foot, stage 1 (L89.891) Active confirmed Response to treatment - Improvement Vital Signs Blood pressure diastolic 56 mm Hg 09/21/2024 Height 5ft8in in 09/21/2024 Blood pressure systolic 172 mm Hg 09/21/2024 Weight 265 lbs 09/21/2024 BMI 40.29 kg/m2 09/21/2024 Procedures Procedure Date Ordered Date Performed Result Body Sit e 25413-PIRSMMU NAIL, 6 OR MORE 02/24/2024 N/A 46241-PGMNTEI NAIL, OR MORE 06/15/2024 N/A 52624-Kbihljjv Plate 06/15/2024 N/A 03557- Debride <25 sq cm 06/15/2024 N/A 06683-PPGWZSC NAIL, 6 OR MORE 09/21/2024 N/A 33018-Oxxamjkg Plate 09/21/2024 N/A 54858- Debride <25 sq cm 09/21/2024 N/A Encounters Encounter Location Date Provider Diagnosis [address] [address] 02/24/2024 Katharina Black Tinea unguium B35.1 ; Pain in right toe(s) M79.674 and Pain in left toe(s) M79.[address] [address] 06/15/2024 Katharina Black Tinea unguium B35.1 ; Pressure injury of right foot, stage 1 L89.891 ; Pain in right toe(s) M79.674 ; Pain in left toe(s) M79.675 and Ingrown nail L60.[address] [address] 09/21/2024 Katharina Black Pressure injury of right [...] Treatment Pending Test Test Name Order Date 37598-EPEJIZS NAIL, 6 OR MORE 08/07/2021 12981-DKRPYHJ NAIL, 6 OR MORE 12/11/2021 00990-XUGTPJG NAIL, 6 OR MORE 04/16/2022 73560-JHSXCHH NAIL, 6 OR MORE 08/20/2022 23706-LCEMXBY NAIL, 6 OR MORE 12/31/2022 76543-ROWNXRP NAIL, 6 OR MORE 05/06/2023 80561-KBVKEWO NAIL, 6 OR MORE 11/14/2023 45454-YDGSUEK NAIL, 6 OR MORE 02/24/2024 17917-EKOBSBX NAIL, 6 OR MORE 06/15/2024 88955-YLCTUXP NAIL, 6 OR MORE 09/21/2024 51761-Rbyamdzz Plate 09/21/2024 78276-Qnmbtpjn Plate 05/06/2023 00322-Dsibgbfi Plate 06/15/2024 59836-Wziujlpi Plate 12/31/2022 49892- Debride <25 sq cm 12/11/2021 94086- Debride <25 sq cm 05/06/2023 23404- Debride <25 sq cm 12/31/2022 04500- Debride <25 sq cm 08/20/2022 68505- Debride <25 sq cm 04/16/2022 46357- Debride <25 sq cm 09/04/2021 65308- Debride <25 sq cm 04/16/2018 71914- Debride <25 sq cm 05/25/2021 55922- Debride <25 sq cm 08/07/2021 22987- Debride <25 sq cm 09/21/2024 78552- Debride <25 sq cm 06/15/2024 08328,Z3478-IBG TENDON SHEATH/LIGAMENT 1 10/07/2020 92556,J6038-HYC TENDON SHEATH/LIGAMENT 0 05/25/2021 99344,L8054-AYP TENDON SHEATH/LIGAMENT 1 11/04/2020 Next Appt Details Provider Name:Katharina De La Rosa , 12/28/2024 11:30:00 AM, [address] [place] [address], [phone], Insurance Providers Payer Name Payer Address Payer Phone Subscriber Number Group Number Insured Name Patient Relationship to Insured Coverage Start Date Coverage End Date [facility]) [address] [place], [place] [id number] [facility] Radha Blandon Self - patient is the insured Medical (General) History Medical History History ICD Code Anemia Anxiety disorder Arthritis Back,Hip,and Knee pain Chicken pox High blood pressure Kidney stones Measles Mumps Broken bones Sciatica A fib Surgical History Surgery Date(Month/Year) Lithotripsy 2019 eye surgery, lenses 09/28 Hospitalization History Reason Date(Month/Year) [facility] [place]- rapid heart rate 10/11/23
--- OUTSIDE RECORDS SUMMARY | 2024-12-07 14:47 | XMS_ITS | Clinical Summary ---
Author Organization [facility] Address [address] [place] [address] Care Team Providers Care Leather Finisher Name Role Phone Unavailable Primary Care Provider Unavailabl e Surgical History Surgery Date Site/Laterality Comments OTHER SURGICAL HISTORY 1999 PROCEDURE: [place] ERCP DESTRUCTION/LITHOTRIPSY CALCULI ANY METHOD OTHER SURGICAL HISTORY 03/22 PROCEDURE: MAMMOGRAM COLONOSCOPY 01/07 PROCEDURE: [place] COLONOSCOPY STOMA DX INCLUDING COLLJ SPEC SPX; COMMENT: [facility] COLONOSCOPY 02/11/2014 PROCEDURE: [place] COLONOSCOPY FLX DX W/COLLJ SPEC WHEN PFRMD; COMMENT: normal Medical History Medical History Date Comments Calculus of kidney DX:Calculus o f kidney Dermatophytosis of nail 04/04/2006 DX:[place] tophytosis of nail Primary localized osteoarthr osis, [...] Upcoming Encounters Date Type Department Care Team ([facility] st Contact Info) Description 05/19/2025 10:30 AM EDT Appointment Radiology Department [address] [address] Health Maintenance Due Date Last Done Comments [...] classified as having normal bone density. [facility] Department of Internal Medicine recommends using National [...] beclassified as having normal bone density. [facility] Department of Internal Medicine recommendsusing National Osteoporosis [...]
--- OUTSIDE RECORDS SUMMARY | 2024-12-07 14:47 | XMS_ITS ---
[facility] Address [address] [place] [address] Care Team Providers Care Furnace Utility Operator Name Role Phone Viola Mack MD Primary Care Provider Unavaila ble Black, Katharina Unavailable [phone] Allergies Allergen (clinical drug ingredient) Drug/Non Drug [...] Ordered Date Performed Result Body Sit e 71596-KYLQMZD NAIL, 6 OR MORE 02/24/2024 N/A Encounters Encounter Location Date Provider Diagnosis [facility] [address] [address] 02/24/2024 Katharina De La Rosa Tinea unguium [...] Treatment Pending Test Test Name Order Date 15557-DTXHSCM NAIL, 6 OR MORE 02/24/2024 Next Appt Details Follow Up: prn, Reason: Provider Name:Katharina De La Rosa , 12/28/2024 11:30:00 AM, [address] [place] [address], [phone], Procedure Notes * Category Sub-Category Detail Notes [...] as necessary. Patient chooses, no pharmaceutical tx (81712) Progress Notes * Radha BLANDON EDOB: (73 yo F)Acc No.[id number]:02/24/2024 Progress Note Patient:?Radha Blandon Provider:?Katharina De La Rosa DPM :1950???Age:73 Y???Sex:Female D ate:02/24/2024 [address] [place], [place] [address] Pcp:Viola Mack MD Subjective: * Chief Complaints: [...] as necessary. Patient chooses, no pharmaceutical tx (39005).? * Procedure Codes:?52249 DEBRI DE NAIL, 6 OR MORE * Follow Up:?prn * Images: * Sign off status: Completed true * Provider:?Katharina De La Rosa DPM Date:?2023 Generated for William ingram/Kaity/Buditting on:?12/07/2024 02:46 PM EST History and Physical [...]
--- OUTSIDE RECORDS SUMMARY | 2024-12-07 14:47 | XMS_ITS | Data Portability ---
Author Organization [place] [facility] Address [address] [address] Care Team Providers Care Side Gluer Name Role Phone SORIN SANDERSANNA Primary Care [...] call for reevaluation. Otherwise follow-up as needed. [email or web address] Not available 05/06/2024 11:24:19 Plan of Treatment [...] Details Recorded Time Otalgia of left ear 1399584695 Active 2020 Otalgia, left ear; Note: Date Diagnosed : 05/27/2021 2:03 PM (H92.02) Not Available [facility] 4 03:16:49 Bilateral earache 165007037 Active 2022 Otalgia, bilateral ; Note: Date Diagnosed : 06/19/2023 2:26 PM (H92.03) Not Available [facility] 4 03:16:50 Dizziness and giddiness 080629583 Active 2021 Dizziness and giddiness ; Note: Date Diagnosed : 03/27/2022 5:05 PM (R42) Not Available [facility] 4 03:16:49 Allergic rhinitis 69607672 Active 2021 Other allergic rhinitis; Note: Date Diagnosed : 03/27/2022 5:05 PM (J30.89) Not Available [facility] 4 03:16:49 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 Other specified disorders of temporoma ndibular joint; Note: Date Diagnosed : 05/27/2021 2:08 PM (M26.69) Not Available [facility] 4 03:16:50 Posterior rhinorrhe a 11226710 Active 2021 Postnasal drip; Note: Date Diagnosed : 06/27/2022 12:20 PM (R09.82) Not Available [facility] 4 03:16:50 Nasal congestio n 25025302 Active 2021 Nasal congestio n; Note: Date Diagnosed : 03/27/2022 5:05 PM (R09.81) Not Available [facility] 4 03:16:49 Benign paroxysma l positiona l vertigo 885816158 Active 2021 Benign paroxysma l vertigo, unspecifi ed ear; Note: Date Diagnosed : 03/27/2022 5:17 PM (H81.10) Not Available [facility] 4 03:16:50 Arthralgi a of temporoma ndibular joint 99054040 Active 2023 SAMUEL FONG PA-C [address] [place] [address],[place] [address], [facility] [place], [place], [address] , [place] - [facility] 4 11:24:38 Problem Notes None recorded. Procedures Surgical History Date Name Laterality Status Provider Name and Address Organization Details Recorded Time lithotripsy completed Cherry Roberts [place] - [facility] 05/06/2024 10:31:08 Imaging Results Imaging Date Name Status LastModified by Organiz [facility] Details LastModified Time 01/05/2022 imaging/diag nostic result completed Information not available 05/27/2024 22:10:30 06/19/2023 imaging/diag nostic result completed Information not available 05/27/2024 22:11:02 Procedure Notes None recorded. Medical Equipment None Reported. Allergies Allergen ID Allergen Name Allergen Category Reaction Reaction Severity Criticality Documentation Date Start Date Code Code System Note Provider Name and Address Organization Details Recorded Time 25439 erythromy omar medicatio n other Not available Not available 02/18/2024 4053 RxNorm React ion: Unkno wn; Not Available [facility] 4 00:48:36 Medications Name Sig Start Date Stop Date Status Note LastModified by Organization Details LastModified Time amoxicill in 500 mg capsule 05/06 completed Medicati on ID: 361076 B rand Name: amoxicil shameka Send Method: E-Prescr ibed Sub s Allowed: subs OK Speci al Instruct ion: TAKE 1 CAPSULE BY MOUTH THREE TIMES A DAY Medi cationGe nericNam e: amoxicil shameka Medi cation ID: [id number] B rand Name: amoxicil shameka Send Method: E-Prescr ibed Sub s Allowed: subs OK Speci al Instruct ion: TAKE 1 CAPSULE BY MOUTH THREE TIMES A DAY Medi cationGe nericNam e: amoxicil shameka Not Available Not Available Not Available gabapenti n 600 mg tablet active Medicati on ID: 361168 B rand Name: gabapent in Send Method: [...] 1 gram tablet active Medicati on ID: 883952 B rand Name: valacycl ovir Sen d Method: E-Prescr ibed Sub s Allowed: subs OK Speci al Instruct ion: TAKE 1 TABLET BY MOUTH 3 TIMES A DAY Medi cationGe nericNam e: valacycl ovir Not Available Not Available Not Available lisinopri l 20 mg tablet active Medicati on ID: 119300 B rand Name: lisinopr il Send Method: [...] 10 mg tablet active Medicati on ID: 014218 B rand Name: amlodipi ne Send Method: [...] % topical ointment active Medicati on ID: 938631 B rand Name: mometaso ne Send Method: [...] as directed 2021 active Medicati on ID: 184584 B rand Name: azelasti ne Send Method: [...] applicato r 05/06 completed Medicati on ID: 148244 B rand Name: hydrocor tisone S end Method: E-Prescr ibed Sub s Allowed: subs OK Speci al Instruct ion: APPLY TOPICALL Y 4 TIMES DAILY NEEDED M tomer nGeneric Name: torsten jeff n ID: [id number] B rand Name: torsten Mccoy end Method: [...] SNOMED-CT Code Diagnosis ICD10 Code Diagnosis Note 87701 LUIS STEEN MD [facility] [address] [address] 05/06/2024 10:20:40 05/06/2024 10:55:09 Bilateral earache 098806041 H92.03 Arthralgia of temporomandibular joint 60299003 M26.629 Health Concerns Section Related Observation LastModified by Organization Detai ls LastModified Time None Recorded Concern Status LastModified by Organization Details LastModified Time None Recorded Advance Directives Directive None Recorded Payers Encounter Date Sequence Insurance Name Policy Number Policy Gerard Covered Member ID Gerard Member ID Guarantor Name 05/06/2024 1 [facility] INDEMN[facility] PL[facility] [id number] Radha Blandon [id number] Radha Blandon Notes Date Note Type Note [...] drainage within the ears. LUIS PALACIO MD [address] [place] [address], [place], [address], [facility] - [facility] 05/06/2024 12:41:25 OBGyn Episode No OBEpisode recorded.
--- OUTSIDE RECORDS SUMMARY | 2024-12-07 14:47 | XMS_ITS | Clinical Summary ---
Author Organization [facility] Address [address] [place] [address] Phone Care Team Providers Care Drywall Carrier Name Role Phone Viola Mack MD Primary Care Provider [phone] Allergies Active Allergy Reactions Criticality Noted Date [...] Visit [facility] [address] [id number] Justin Espitia MD [address] [address] Health Maintenance Due Date Last Done Comments Breast Cancer Screening 1950 Pneumococcal Vaccine: 65+ Ye ars (1 of 2 - PCV) 1957 Colorectal Cancer Screening: Annual FOBT 2000 Colorectal Cancer Screening: Colonoscopy 2000 Colorectal Cancer Screening: Sigmoidoscopy 2000 Influenza Vaccine (#1) 2024 Hepatitis B Vaccine Aged Out No longe r eligible based on patient's age to complete this topic Insurance [facility] Care Teams Drywall Carrier Relationship Specialty Start Date End Date Viola Mack MD [address] [place] [address] PCP - General Internal Medicine 08/21/22
== END 2024-12-07 13:53 | disposition home or self-care (01) ==
PROVIDERS: PCP Internal Medicine; Visit Provider Nurse Practitioner Family
DX: I48.91 Unspecified atrial fibrillation (principal); G47.30 Sleep apnea, unspecified; I10 Essential (primary) hypertension
CPT/HCPCS: 93010; 99214

== ENCOUNTER → 2024-12-07 12:39 | Outpatient (BNVA) | payer OTHER, SELFPAY | PROVIDERS: PCP Internal Medicine; Visit Provider Nurse Practitioner Family | DX: I48.91 Unspecified atrial fibrillation (principal); G47.30 Sleep apnea, unspecified; I10 Essential (primary) hypertension; Z79.899 Other long term (current) drug therapy | CPT/HCPCS: 93005 ==

== ENCOUNTER 2024-12-11 10:41 | Outpatient (AMB) | payer OTHER, SELFPAY ==
[2024-12-11 10:47] VITALS: BP 128/70; PULSE 61; RESP 18; TEMP 36.5; O2SAT 99; BMI 41.8
--- NOTE | 2024-12-11 10:47 | MHC.PC.OV ---
Vital Signs 12/11/24 10:47 Height 5 ft 8 in Weight 275 lb BMI 41.8 BP 128/70 Blood Pressure Location Lt brachial Position Sitting Respiration 18 Pulse 61 Pulse Source Pulse Oximeter Temp 97.7 F Temp Source Oral Pulse Oximetry (%) 99 Oxygen Delivery Method Room Air Intake Visit Reasons: 1 week follow up Intake Note: Pt is here today for 1 week follow up visit. Allergies metoprolol Allergy (Severe, Verified 12/11/24 10:48) Rash doxycycline Adverse Reaction (Intermediate, Verified 12/11/24 10:48) Abdominal Pain methylprednisolone Adverse Reaction (Intermediate, Verified 12/11/24 10:48) rapid heart rate erythromycin base Adverse Reaction (Unknown, Verified 12/11/24 10:48) upset stomach nausea Medication List - Last Reconciled 12/11/24 by Viola Mack MD amlodipine 2.5 mg PO DAILY apixaban (Eliquis) 5 mg PO BID atenolol 50 mg PO DAILY desonide 0.05% topical fluconazole 150 mg PO Q3D 2 doses fluticasone propionate 50 mcg/actuation 1 spray intranasal BID PRN furosemide 20 mg PO Q OTHER DAY glucosamine sulfate 750 mg PO ONCE lisinopril 10 mg PO BID multivitamin 1 tab PO DAILY Tobacco use date assessed: 12/11/24 Dental Screening Dental Screen Date: 12/02/24 HPI 1 week follow up HPI Details Patient presents for the follow-up of left lower extremity cellulitis resolved with the antibiotic. Patient reports improved lower extremity swelling since she has been taking 2.5 mg of amlodipine and furosemide every other day. [facility] Medical History (Updated 12/11/24 @ 16:46 by Viola Mack MD) CKD (chronic kidney disease) stage 3, GFR 30-59 ml/min SHARIF (obstructive sleep apnea) Retrognathia Atrial fibrillation Chest pain Morbid obesity Hyperlipemia Annual physical exam Mammogram normal DJD (degenerative joint disease), lumbar Anxiety Overweight HTN (hypertension) Surgical History H/O bilateral cataract extraction H/O lithotripsy H/O colonoscopy Family History Father No problems noted. Mother HTN (hypertension) Social History Housing: House Alcohol intake: current Alcohol intake frequency: holidays/special occasions only Patient Tobacco Use Status: Never used Tobacco e-Cigarette/Vaping Use: Never Used Second Hand Smoke Exposure: No service: No Current occupational status: retired Cognitive needs: No Hearing needs: No Vision needs: Yes Questionnaire Thrive Questionnaire Date Thrive assessed: 12/03/24 I am a: Patient What is your living situation today?: I have a steady place to live Within the past 12 months, did the food you bought not last and you didn't have the money to get more?: Never true Within the past 12 months, did you worry whether your food would run out before you got money to buy more?: Never true Do you have trouble paying for medicines?: No Do you have trouble getting transportation to medical appointments?: No Do you have trouble paying your heating and electricity bill?: No Do you have trouble taking care of your child, family member or friend?: No Do you have trouble with day-to-day activities such as bathing, preparing meals, shopping, managing finances, etc.?: No Are you currently unemployed and looking for a job?: No Are you interested in more education?: No Please select the resources that you would like help with: None Currently or been in a relationship where the following occur: No concerns reported THRIVE Score: 0 HANNA-7 AMB Questionnaire HANNA-7 Date HANNA - 7 assessed: 09/10/24 Source: Developed by Drs. oGpi Baker, Stefani Doyle, Alfonso Carey and colleagues, with an educational jeancarlos from [employer]. Review of Systems Const All systems reviewed & are unremarkable except as noted in HPI and below Eyes Reports no additional complaints ENT Reports no additional complaints Card Reports no additional complaints Resp Reports no additional complaints GI Reports no additional complaints Reports no additional complaints Physical exam (Primary Care) Vital Signs: Last Vital Signs Temp 97.7 F 12/11/24 10:47 Pulse 61 12/11/24 10:47 Resp 18 12/11/24 10:47 BP 128/70 12/11/24 10:47 Pulse Ox 99 12/11/24 10:47 Oxygen Delivery Method Room Air 12/11/24 10:47 BMI result Body Mass Index 41.8 Tobacco/Smoking Status: Tobacco use Status Tobacco use date assessed 12/11/24 12/11/24 10:48 Patient Tobacco Use Status Never used Tobacco 12/11/24 10:48 e-Cigarette/Vaping Use Never Used 12/11/24 10:48 Thrive Assessment: Date of Thrive Assessment Date Thrive assessed 12/03/24 12/11/24 10:48 Currently or been in a relationship where the following occur: No concerns reported Const General: no acute distress HENMT Head: Yes normal to inspection Resp Effort & Inspection: normal respiratory effort Auscultation: clear to auscultation bilaterally Cardio Rhythm: regular rhythm Heart sounds: S1 normal heart sound present and S2 normal heart sound present GI Inspection: Yes normal to inspection Palpation (GI): Soft to palpation Extrem Other: 3+ nonpitting edema bilaterally in lower extremities with some chronic venous stasis changes but no open ulcers Coding Level of Care Code Est Pt Level 4 (37804) Diagnoses HTN (hypertension) I10 Morbid obesity E66.01 CKD (chronic kidney disease) stage 3, GFR 30-59 ml/min N18.30 Assessment & Plan Assessment & Plan (1) HTN (hypertension): Code(s): I10 - Essential (primary) hypertension Category: Medical Plan: Increase lisinopril to 20 mg a day check BMP in 1 week continue the rest of her medications. Patient will take furosemide and as needed only (2) Morbid obesity: Comment: BMI= 42.0 PATIENT IS THE DEFINITELY OVERWEIGHT. OBESITY IS MAINLY TRUNCAL AND OF THE LOWER EXTREMITIES. SHE HAS CHRONIC LYMPHEDEMA AND STASIS EDEMA Code(s): E66.01 - Morbid (severe) obesity due to excess calories Category: Medical Plan: Decreasing caloric intake increase physical activity weight loss discussed with the patient (3) CKD (chronic kidney disease) stage 3, GFR 30-59 ml/min: Comment: started Farxiga 09/28 but stopped on 10/20/23 because of rash, patient's parking meter collector did not recommend SGTP2 inhibitor Code(s): N18.30 - Chronic kidney disease, stage 3 unspecified Category: Medical Plan: Monitor kidney function avoid nephrotoxins Orders: Orders Basic Metabolic Panel 1 Week I10 - Essential (primary) hypertension Medications: Changed From lisinopril 10 mg PO DAILY 90 tabs 3RF To lisinopril 10 mg PO BID 180 tabs 3RF
--- OUTSIDE RECORDS SUMMARY | 2024-12-11 12:10 | XMS_ITS | Patient Health Record ---
Author Organization [facility] Address [address] [place] [address] Support Name Relationship Address Phone DEVORA DUBOSE Guarantor Unknown [phone] Reason For Referral No Information Medications Medication SIG (Take, Route, Fr equency, Duration) Notes Start Date End Date Status Fluconazole 50MG 5ML ORAL WEEKLY for 7 Cas-MJ 12/19/2011 Active Immunizations Vaccine Route Administration Date Status Comme nts Influenza, live, intranasal Intramuscular 12/19/2011 Pendi ng Problems Problem Type SNOMED Code ICD Code Onset Dates Problem Status W/U Status Risk Notes Problem Gynecological examination normal (739767277047650) Routine gynecological examination (V72.31) Active confirmed Diag Plan Of Treatment No Information Insurance Providers Payer Name Payer Address Payer Phone Subscriber Number Group Number Insured Name Patient Relationship to Insured Coverage Start Date Coverage End Date [facility] INDEMNITY PLAN [address] [place], [place] [id number] DEVORA DUBOSE Self - patient is the insured
--- OUTSIDE RECORDS SUMMARY | 2024-12-11 12:10 | XMS_ITS ---
Author Organization [facility] Address [address] [place] [address] Care Team Providers Care Shearing Supervisor Name Role Phone Viola Mack MD Primary Care Provider Unavaila ble Black, Katharina Unavailable [phone] Allergies Allergen (clinical drug ingredient) Drug/Non Drug [...] Ordered Date Performed Result Body Sit e 83767-MRXXUTJ NAIL, 6 OR MORE 02/24/2024 N/A Encounters Encounter Location Date Provider Diagnosis [facility] [address] [address] 02/24/2024 Katharina De La Rosa Tinea unguium [...] Treatment Pending Test Test Name Order Date 96932-WFNTDQW NAIL, 6 OR MORE 02/24/2024 Next Appt Details Follow Up: prn, Reason: Provider Name:Katharina De La Rosa , 12/28/2024 11:30:00 AM, [address] [place] [address], [phone], Procedure Notes * Category Sub-Category Detail Notes [...] as necessary. Patient chooses, no pharmaceutical tx (61977) Progress Notes * Radha BLANDON EDOB: (73 yo F)Acc No.[id number]:02/24/2024 Progress Note Patient:?Radha Blandon Provider:?Katharina De La Rosa DPM :1950???Age:73 Y???Sex:Female D ate:02/24/2024 Address:[address] [place], [place] [address] Pcp:Viola Mack MD Subjective: * Chief Complaints: [...] as necessary. Patient chooses, no pharmaceutical tx (49461).? * Procedure Codes:?03668 DEBRI DE NAIL, 6 OR MORE * Follow Up:?prn * Images: * Sign off status: Completed true * Provider:?Katharina De La Rosa DPM Date:?2023 Generated for William ingram/Kaity/Buditting on:?12/11/2024 12:09 PM EST History and Physical Notes * [...]
--- OUTSIDE RECORDS SUMMARY | 2024-12-11 12:10 | XMS_ITS | Data Portability ---
Author Organization [place] - [facility], Allergy Address [address] [address] Care Team Providers Care Soaking Pit Operator Name Role Phone SORIN SANDERSANNA Primary Care [...] call for reevaluation. Otherwise follow-up as needed. [email or web address] Not available 05/06/2024 11:24:19 Plan of Treatment [...] Details Recorded Time Otalgia of left ear 2952500535 Active 2020 Otalgia, left ear; Note: Date Diagnosed : 05/27/2021 2:03 PM (H92.02) Not Available [facility] 4 03:16:49 Bilateral earache 474974058 Active 2022 Otalgia, bilateral ; Note: Date Diagnosed : 06/19/2023 2:26 PM (H92.03) Not Available [facility] 4 03:16:50 Dizziness and giddiness 392796210 Active 2021 Dizziness and giddiness ; Note: Date Diagnosed : 03/27/2022 5:05 PM (R42) Not Available [facility] 4 03:16:49 Allergic rhinitis 30054414 Active 2021 Other allergic rhinitis; Note: Date Diagnosed : 03/27/2022 5:05 PM (J30.89) Not Available [facility] 4 03:16:49 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 Other specified disorders of temporoma ndibular joint; Note: Date Diagnosed : 05/27/2021 2:08 PM (M26.69) Not Available [facility] 4 03:16:50 Posterior rhinorrhe a 66861146 Active 2021 Postnasal drip; Note: Date Diagnosed : 06/27/2022 12:20 PM (R09.82) Not Available [facility] 4 03:16:50 Nasal congestio n 14296851 Active 2021 Nasal congestio n; Note: Date Diagnosed : 03/27/2022 5:05 PM (R09.81) Not Available [facility] 4 03:16:49 Benign paroxysma l positiona l vertigo 432022574 Active 2021 Benign paroxysma l vertigo, unspecifi ed ear; Note: Date Diagnosed : 03/27/2022 5:17 PM (H81.10) Not Available [facility] 4 03:16:50 Arthralgi a of temporoma ndibular joint 77399135 Active 2023 SAMUEL FONG PA-C [address] [place] [address],[place] [address], [facility] [place], [place], [address] , [place] - [facility] 4 11:24:38 Problem Notes None recorded. Procedures Surgical History Date Name Laterality Status Provider Name and Address Organization Details Recorded Time lithotripsy completed Cherry Roberts [place] - [facility] 05/06/2024 10:31:08 Imaging Results Imaging Date Name Status LastModified by Organiz [facility] Details LastModified Time 01/05/2022 imaging/diag nostic result completed Information not available 05/27/2024 22:10:30 06/19/2023 imaging/diag nostic result completed Information not available 05/27/2024 22:11:02 Procedure Notes None recorded. Medical Equipment None Reported. Allergies Allergen ID Allergen Name Allergen Category Reaction Reaction Severity Criticality Documentation Date Start Date Code Code System Note Provider Name and Address Organization Details Recorded Time 04040 erythromy omar medicatio n other Not available Not available 02/18/2024 4053 RxNorm React ion: Unkno wn; Not Available [facility] 4 00:48:36 Medications Name Sig Start Date Stop Date Status Note LastModified by Organization Details LastModified Time amoxicill in 500 mg capsule 05/06 completed Medicati on ID: [id number] B rand Name: amoxicil shameka Send Method: E-Prescr ibed Sub s Allowed: subs OK Speci al Instruct ion: TAKE 1 CAPSULE BY MOUTH THREE TIMES A DAY Medi cationGe nericNam e: amoxicil shameka Medi cation ID: [id number] B rand Name: amoxicil shameka Send Method: E-Prescr ibed Sub s Allowed: subs OK Speci al Instruct ion: TAKE 1 CAPSULE BY MOUTH THREE TIMES A DAY Medi cationGe nericNam e: amoxicil shameka Not Available Not Available Not Available gabapenti n 600 mg tablet active Medicati on ID: 362559 B rand Name: gabapent in Send Method: [...] 1 gram tablet active Medicati on ID: 351842 B rand Name: valacycl ovir Sen d Method: E-Prescr ibed Sub s Allowed: subs OK Speci al Instruct ion: TAKE 1 TABLET BY MOUTH 3 TIMES A DAY Medi cationGe nericNam e: valacycl ovir Not Available Not Available Not Available lisinopri l 20 mg tablet active Medicati on ID: 747628 B rand Name: lisinopr il Send Method: [...] 10 mg tablet active Medicati on ID: 923517 B rand Name: amlodipi ne Send Method: [...] % topical ointment active Medicati on ID: 383496 B rand Name: mometaso ne Send Method: [...] as directed 2021 active Medicati on ID: 011429 B rand Name: azelasti ne Send Method: [...] applicato r 05/06 completed Medicati on ID: 488126 B rand Name: hydrocor tisone S end Method: E-Prescr ibed Sub s Allowed: subs OK Speci al Instruct ion: APPLY TOPICALL Y 4 TIMES DAILY NEEDED M tomer nGeneric Name: torsten jeff n ID: [id number] B rand Name: torsten Mccoy end Method: [...] SNOMED-CT Code Diagnosis ICD10 Code Diagnosis Note 66098 LUIS STEEN MD [facility] [address] [address] 05/06/2024 10:20:40 05/06/2024 10:55:09 Bilateral earache 140799712 H92.03 Arthralgia of temporomandibular joint 66517560 M26.629 Health Concerns Section Related Observation LastModified by Organization Detai ls LastModified Time None Recorded Concern Status LastModified by Organization Details LastModified Time None Recorded Advance Directives Directive None Recorded Payers Encounter Date Sequence Insurance Name Policy Number Policy Gerard Covered Member ID Gerard Member ID Guarantor Name 05/06/2024 1 [facility] [id number] Radha Blandon [id number] Radha Blandon Notes Date Note Type Note [...] drainage within the ears. LUIS PALACIO MD [address] [place] [address], [place], [address], [facility] - [facility] 05/06/2024 12:41:25 OBGyn Episode No OBEpisode recorded.
--- OUTSIDE RECORDS SUMMARY | 2024-12-11 12:10 | XMS_ITS ---
Author Organization [facility] Address [address] [place] [address] Care Team Providers Care Public Relations Account Executive Name Role Phone Viola Mack MD Primary Care Provider Unavaila ble Black, Katharina Unavailable [phone] Allergies Allergen (clinical drug ingredient) Drug/Non Drug [...] injury of right foot stage I (disorder) (17888274599 4102) Pressure injury of right foot, stage 1 (L89.891) Active confirmed Response to treatment - Improvement Vital Signs Height 5ft 8in in 06/15/2024 Weight 265 lbs 06/15/2024 BMI 40.29 kg/m2 06/15/2024 Blood pressure systolic 148 mm Hg 06/15/20 24 Blood pressure diastolic 54 mm Hg 024 Procedures Procedure Date Ordered Date Performed Result Body Sit e 88222-SROBUZN NAIL, 6 OR MORE 06/15/2024 N/A 60263-Fctxgsmh Plate 06/15/2024 N/A 76751- Debride <25 sq cm 06/15/2024 N/A Encounters Encounter Location Date Provider Diagnosis [facility] [place] [address] [place] [address] 06/15/2024 Katharina Black Tinea unguium B35.1 ; [...] INSTRUCTIONS.pdf) Pending Test Test Name Order Date 54607-ZFIITHH NAIL, 6 OR MORE 06/15/2024 78912-Zwhlmbrp Plate 06/15/2024 92731- Debride <25 sq cm 06/15/2024 Next Appt Details Follow Up: 6 Weeks, Reason: Provider Name:Katharina Beard Rj , 12/28/2024 11:30:00 AM, [address] [place] [address], [address], Procedure Notes * Category Sub-Category Detail Notes [...] Motrin was recommended for pain or discomfort (08041) , Pt DEFERS matricectomy Anesthesia was accomplished [...] as necessary. Patient chooses, no pharmaceutical tx (84879) Debride skin< 25 sq cm Open wound [...] of the wound post debridement is stable (16839) Progress Notes * CHAOJENNRadha GUSATFSON EDOB: (73 yo F)Acc No.[id number]:06/15/2024 Progress Note Patient:?Radha Blandon Provider:?Katharina De La Rosa DPM :1950???Age:73 Y???Sex:Female D ate:06/15/2024 Address:[address] [place], [place] [address] Pcp:Viola Mack MD Subjective: * Chief Complaints: * ???Painful nail(s) aggrevate d by shoes causing difficulty standing/walkingOpen soreIngrown Nail * HPI: ???Painful Nails:?Pt States Last PCP Visit:?Date:?03/03/2024 ???Skin problems:?Treatments:?none.? * Medical History:? * Surgical History:?Lithotrips y 2019eye surgery, lenses 09/28 * Hospitalization/Major Diagno stic Procedure:?[facility]- rapid heart rate 10/11/23 * Family History:?Mother: [...] - L60.0? Plan: * Treatment: 2.?Tinea unguium?Procedure: 59497-EIVYNWG NAIL, 6 OR MORE 3.?Ingrown nail?Procedure: 08499-Xhisfcsp Plate * Procedures:?Debride Nail 6-10:?Nail debridement?Nail debridement performed extensively to reduce/remove overall nail length, girth, thickness, subungual debris, and necrotic tissue, by manual and electrical means through the use of a nail nipper and/or dremel, to more viable healthy nail plate or bed tissue 1-5. Silver nitrate used for any petechial bleeding as necessary. Patient chooses, no pharmaceutical tx (71109).?Debride skin< 25 sq cm:?Open wound?Physician of record [...] of the wound post debridement is stable (53393).?Nail Avulsion:?Location?Lateral nail border , TA.?Anesthesia?was accomplished TOPICALLY [...] Motrin was recommended for pain or discomfort (29540) , Pt DEFERS matricectomy.? * Procedure Codes:?91670 DEBRI DE NAIL, 6 OR MORE, Modifiers: XS 21227 Avulsion Plate, [place]: [place] [address] ACTIVE WOUND CARE/20 CM OR <, Modifiers: [...] Rosa DPM Date:?2023 Generated for William ingram/Kaity/Javi on:?12/11/2024 12:10 PM EST History and Physical Notes * [...]
--- OUTSIDE RECORDS SUMMARY | 2024-12-11 12:10 | XMS_ITS | Patient Health Record ---
Author Organization [facility] Address [address] [facility] [place] [address] Care Team Providers Care Vacuum Worker Name Role Phone Viola Mack MD Primary Care Provider Unavaila marc Black, Katharina Unavailable [phone] Allergies Allergen (clinical drug ingredient) Drug/Non Drug [...] primary osteoarthritis of the ankle and/or foot (071628451) Primary osteoarthrit is, left ankle and foot (M19.072) Active confirmed Problem Non-pressure ulcer lower limb (372616038) Non-pressure chronic ulcer of other part of right foot limited to breakdown of skin (L97.511) Active confirmed Problem Acquired hammer toe of right foot (5442557437415124 ) Other hammer toe(s) (acquired), right foot (M20.41) Active confirmed Problem Acquired hammer toe of left foot (1811189108259624 ) Other hammer toe(s) (acquired), left foot (M20.42) Active confirmed Problem Pressure injury of right foot stage I (disorder) (147630323714443) Pressure injury of right foot, stage 1 (L89.891) Active confirmed Response to treatment - Improvement Vital Signs Blood pressure diastolic 56 mm Hg 09/21/2024 Height 5ft8in in 09/21/2024 Blood pressure systolic 172 mm Hg 09/21/2024 Weight 265 lbs 09/21/2024 BMI 40.29 kg/m2 09/21/2024 Procedures Procedure Date Ordered Date Performed Result Body Sit e 48273-QDDHWNB NAIL, 6 OR MORE 02/24/2024 N/A 92906-EPLNZDS NAIL, OR MORE 06/15/2024 N/A 32083-Aripwjeh Plate 06/15/2024 N/A 15513- Debride <25 sq cm 06/15/2024 N/A 07391-YRLNAAU NAIL, 6 OR MORE 09/21/2024 N/A 57116-Onmtzfhm Plate 09/21/2024 N/A 39056- Debride <25 sq cm 09/21/2024 N/A Encounters Encounter Location Date Provider Diagnosis [address] [address] 02/24/2024 Kahtarina Black Tinea unguium B35.1 ; Pain in right toe(s) M79.674 and Pain in left toe(s) M79.[address] [address] 06/15/2024 Katharina Black Tinea unguium B35.1 ; Pressure injury of right foot, stage 1 L89.891 ; Pain in right toe(s) M79.674 ; Pain in left toe(s) M79.675 and Ingrown nail L60.[address] [address] 09/21/2024 Katharina Black Pressure injury of right [...] Treatment Pending Test Test Name Order Date 76895-FIPPWRP NAIL, 6 OR MORE 08/07/2021 48707-ALTGIZY NAIL, 6 OR MORE 12/11/2021 41793-SABBPQN NAIL, 6 OR MORE 04/16/2022 54099-ENZEVTM NAIL, 6 OR MORE 08/20/2022 44502-ATEIMKV NAIL, 6 OR MORE 12/31/2022 56530-BJGLWQM NAIL, 6 OR MORE 05/06/2023 28911-RGDNIFP NAIL, 6 OR MORE 11/14/2023 95489-RTHZGSL NAIL, 6 OR MORE 02/24/2024 81624-AFXOBOL NAIL, 6 OR MORE 06/15/2024 88261-PLMFXXC NAIL, 6 OR MORE 09/21/2024 35226-Bfigwoyg Plate 09/21/2024 74265-Ebljvvlr Plate 05/06/2023 23070-Lezewplj Plate 06/15/2024 70124-Invhfdky Plate 12/31/2022 06460- Debride <25 sq cm 12/11/2021 72267- Debride <25 sq cm 05/06/2023 89198- Debride <25 sq cm 12/31/2022 45375- Debride <25 sq cm 08/20/2022 38046- Debride <25 sq cm 04/16/2022 89600- Debride <25 sq cm 09/04/2021 05801- Debride <25 sq cm 04/16/2018 04770- Debride <25 sq cm 05/25/2021 41460- Debride <25 sq cm 08/07/2021 55030- Debride <25 sq cm 09/21/2024 22718- Debride <25 sq cm 06/15/2024 01921,T2981-ZZO TENDON SHEATH/LIGAMENT 1 10/07/2020 63846,L5217-QVG TENDON SHEATH/LIGAMENT 0 05/25/2021 82886,Q3045-VFM TENDON SHEATH/LIGAMENT 1 11/04/2020 Next Appt Details Provider Name:Katharina De La Rosa , 12/28/2024 11:30:00 AM, [address] [place] [address], [address], Insurance Providers Payer Name Payer Address Payer Phone Subscriber Number Group Number Insured Name Patient Relationship to Insured Coverage Start Date Coverage End Date [facility]) [address] [place], [place] [id number] [facility] Radha Blandon Self - patient is the insured Medical (General) History Medical History History ICD Code Anemia Anxiety disorder Arthritis Back,Hip,and Knee pain Chicken pox High blood pressure Kidney stones Measles Mumps Broken bones Sciatica A fib Surgical History Surgery Date(Month/Year) Lithotripsy 2019 eye surgery, lenses 09/28 Hospitalization History Reason Date(Month/Year) [facility] rapid heart rate 10/11/23
--- OUTSIDE RECORDS SUMMARY | 2024-12-11 12:10 | XMS_ITS ---
Author Organization [facility] Address [address] [place] [address] Care Team Providers Care Apigee Developer Name Role Phone Viola Mack MD Primary Care Provider Unavaila ble Black, Katharina Unavailable [phone] Allergies Allergen (clinical drug ingredient) Drug/Non Drug [...] Ordered Date Performed Result Body Sit e 55344-VLEFYPI NAIL, 6 OR MORE 09/21/2024 N/A 59682-Ypiwdmom Plate 09/21/2024 N/A 77624- Debride <25 sq cm 09/21/2024 N/A Encounters Encounter Location Date Provider Diagnosis [facility] [place] [address] [place] [address] 09/21/2024 Katharina Black Pressure injury of right [...] INSTRUCTIONS.pdf) Pending Test Test Name Order Date 47381-AYROGAU NAIL, 6 OR MORE 09/21/2024 40329-Wctynfzz Plate 09/21/2024 07626- Debride <25 sq cm 09/21/2024 Next Appt Details Follow Up: 2 Weeks,prn, Reas on: Provider Name:Katharina Beard Rj , 12/28/2024 11:30:00 AM, [address] [place] [address], [address], Procedure Notes * Category Sub-Category Detail Notes [...] Motrin was recommended for pain or discomfort (22560) , Pt DEFERS matricectomy , Anesthesia was [...] use of a nail nipper and/or dremel-type hand grinder, to a more viable healthy nail [...] to maintain effectiveness in symptomatic relief - 73538 Debride skin< 25 sq cm Open wound [...] of the wound post debridement is stable (41766) Progress Notes * CHAOJENNRadha GUSTAFSON EDOB: (74 yo F)Acc No.[id number]:09/21/2024 Progress Note Patient:Radha PADILLA Provider:?Katharina De La Rosa DPM :1950???Age:74 Y???Sex:Female D ate:09/21/2024 Address:[address] [place] [address] [phone] Pcp:Viola Mack MD Subjective: * Chief Complaints: [...] surgery, lenses 09/28 * Hospitalization/Major Diagno stic Procedure:?[facility] [place]- rapid heart rate 10/11/23 * Family History:?Mother: [...] 2.?Pressure injury of right foot, stage 1?Procedure: 15378- Debride <25 sq cm Notes: Patient Educated with: WOUND CARE INSTRUCTIONS.pdf (WOUND CARE INSTRUCTIONS.pdf)?? 3.?Tinea unguium?Procedure: 50906-WQBBIWX NAIL, 6 OR MORE 4.?Ingrown nail?Procedure: 94652-Ojseqfcf Plate * Procedures:?Debride Nail 6-10:?Nail debridement?Due to [...] of a nail nipper and/or dremel- type hand grinder, to a more viable healthy nail [...] to maintain effectiveness in symptomatic relief - 46487.?Debride skin< 25 sq cm:?Open wound?Physician of record [...] of the wound post debridement is stable (27452).?Nail Avulsion:?Location?Lateral nail border , T5.?Anesthesia?was accomplished TOPICALLY [...] Motrin was recommended for pain or discomfort (30151) , Pt DEFERS matricectomy ,.? * Procedure Codes:?73790 DEBRI DE NAIL, 6 OR MORE, Modifiers: XS 33343 Avulsion Plate, Modifiers: T5 61266 ACTIVE WOUND CARE/20 CM OR <, Modifiers: [...] DPM Date:?2023 Generated for William ingram/Kaity/Javi on:?12/11/2024 12:09 PM EST History and Physical [...]
--- OUTSIDE RECORDS SUMMARY | 2024-12-11 12:10 | XMS_ITS | Clinical Summary ---
Author Organization [facility] Address [address] [place] [address] Phone Care Team Providers Care Supervisor Pre Wave Name Role Phone Viola Mack MD Primary Care Provider [phone] Allergies Active Allergy Reactions Criticality Noted Date [...] Visit [facility] [address] [phone] Justin Espitia MD [address] [address] Health Maintenance Due Date Last [...] to complete this topic Insurance [facility] [employer] Care Teams Supervisor Pre Wave Relationship Specialty Start Date End Date Viola Mack MD [address] [place] [address] PCP - General Internal Medicine 08/21/22
--- OUTSIDE RECORDS SUMMARY | 2024-12-11 12:10 | XMS_ITS | Clinical Summary ---
Author Organization [facility] Address [address] [place] [address] Care Team Providers Care Customer Care Agent Name Role Phone Unavailable Primary Care Provider Unavailabl e Surgical History Surgery Date Site/Laterality Comments OTHER SURGICAL HISTORY 1999 PROCEDURE: [place] ERCP DESTRUCTION/LITHOTRIPSY CALCULI ANY METHOD OTHER SURGICAL HISTORY 03/22 PROCEDURE: MAMMOGRAM COLONOSCOPY 01/07 PROCEDURE: [place] COLONOSCOPY STOMA DX INCLUDING COLLJ SPEC SPX; COMMENT: [facility] COLONOSCOPY 02/11/2014 PROCEDURE: [place] COLONOSCOPY FLX DX W/COLLJ SPEC WHEN PFRMD; COMMENT: normal Medical History Medical History Date Comments Calculus of kidney DX:Calculus o f kidney Dermatophytosis of nail 04/04/2006 DX:[place] tophytosis of nail Primary localized osteoarthr osis, [...] Upcoming Encounters Date Type Department Care Team ([facility] st Contact Info) Description 05/19/2025 10:30 AM EDT Appointment Radiology Department [address] [address] Health Maintenance Due Date Last Done Comments [...]
== END 2024-12-11 12:50 | disposition home or self-care (01) ==
PROVIDERS: PCP Internal Medicine; Visit Provider Internal Medicine
DX: I12.9 Hypertensive chronic kidney disease with stage 1 through stage 4 chronic kidney disease, or unspecified chronic kidney disease (principal); E66.01 Morbid (severe) obesity due to excess calories; N18.30 Chronic kidney disease, stage 3 unspecified; Z68.41 Body mass index [BMI] 40.0-44.9, adult

== ENCOUNTER → 2024-12-11 10:41 | Outpatient (BNVA) | payer OTHER, SELFPAY | PROVIDERS: PCP Internal Medicine; Visit Provider Internal Medicine ==

== ENCOUNTER 2024-12-18 12:36 | Outpatient (REF) | payer OTHER, SELFPAY ==
--- OUTSIDE RECORDS SUMMARY | 2024-12-18 14:10 | XMS_ITS ---
Author Organization [facility] Address [address] [place] [address] Care Team Providers Care Guzzler Builder Name Role Phone Viola Mack MD Primary Care Provider Unavaila ble Black, Katharina Unavailable [phone] Allergies Allergen (clinical drug ingredient) Drug/Non Drug [...] Ordered Date Performed Result Body Sit e 21140-QKNWEOY NAIL, 6 OR MORE 02/24/2024 N/A Encounters Encounter Location Date Provider Diagnosis [facility] [address] [address] 02/24/2024 Katharina De La Rosa Tinea unguium [...] Treatment Pending Test Test Name Order Date 36784-JUWKIKB NAIL, 6 OR MORE 02/24/2024 Next Appt Details Follow Up: prn, Reason: Provider Name:Katharina De La Rosa , 12/28/2024 11:30:00 AM, [address] [place] [address], [address], Procedure Notes * Category Sub-Category Detail Notes [...] as necessary. Patient chooses, no pharmaceutical tx (41552) Progress Notes * Radha BLANDON EDOB: (73 yo F)Acc No.[id number]:02/24/2024 Progress Note Patient:?Radha Blandon Provider:?Katharina De La Rosa DPM :1950???Age:73 Y???Sex:Female D ate:02/24/2024 Address[address] [place], [place] [address] Pcp:Viola Mack MD Subjective: * Chief Complaints: [...] as necessary. Patient chooses, no pharmaceutical tx (92662).? * Procedure Codes:?84411 DEBRI DE NAIL, 6 OR MORE * Follow Up:?prn * Images: * Sign off status: Completed true * Provider:?Katharina De La Rosa DPM Date:?2023 Generated for William ingram/Kaity/Shirleysmitting on:?12/18/2024 02:10 PM EDT History and Physical Notes * HPI (History [...]
--- OUTSIDE RECORDS SUMMARY | 2024-12-18 14:10 | XMS_ITS ---
Author Organization [facility] Address [address] [place] [address] Care Team Providers Care Scale And Skip Car Operator Name Role Phone Viola Mack MD Primary Care Provider Unavaila ble Black, Katharina Unavailable [phone] Allergies Allergen (clinical drug ingredient) Drug/Non Drug [...] Ordered Date Performed Result Body Sit e 82551-EBLYGDL NAIL, 6 OR MORE 09/21/2024 N/A 23879-Kihcyjzs Plate 09/21/2024 N/A 62771- Debride <25 sq cm 09/21/2024 N/A Encounters Encounter Location Date Provider Diagnosis [facility] [place] [address] [place] [address] 09/21/2024 Katharina Black Pressure injury of right [...] INSTRUCTIONS.pdf) Pending Test Test Name Order Date 76052-JMXFWFR NAIL, 6 OR MORE 09/21/2024 37997-Imgudrfc Plate 09/21/2024 90800- Debride <25 sq cm 09/21/2024 Next Appt Details Follow Up: 2 Weeks,prn, Reas on: Provider Name:Katharina Beard Rj , 12/28/2024 11:30:00 AM, [address] [place] [address], [address], Procedure Notes * Category Sub-Category Detail Notes [...] Motrin was recommended for pain or discomfort (82496) , Pt DEFERS matricectomy , Anesthesia was [...] use of a nail nipper and/or dremel-type facing grinder, to a more viable healthy nail [...] to maintain effectiveness in symptomatic relief - 99213 Debride skin< 25 sq cm Open wound [...] of the wound post debridement is stable (96230) Progress Notes * CHAOJENNRadha GUSTAFSON EDOB: (74 yo F)Acc No.[id number]:09/21/2024 Progress Note Patient:Radha PADILLA Provider:?Katharina De La Rosa DPM :1950???Age:74 Y???Sex:Female D ate:09/21/2024 Address:[address] [place] [address] [id number] Pcp:Viola Mack MD Subjective: * Chief Complaints: [...] surgery, lenses 09/28 * Hospitalization/Major Diagno stic Procedure:?[facility] [place] rapid heart rate 10/11/23 * [...] 2.?Pressure injury of right foot, stage 1?Procedure: 35506- Debride <25 sq cm Notes: Patient Educated with: WOUND CARE INSTRUCTIONS.pdf (WOUND CARE INSTRUCTIONS.pdf)?? 3.?Tinea unguium?Procedure: 56379-IBGFRII NAIL, 6 OR MORE 4.?Ingrown nail?Procedure: 24496-Sbqlvohv Plate * Procedures:?Debride Nail 6-10:?Nail debridement?Due to [...] of a nail nipper and/or dremel- type facing grinder, to a more viable healthy nail [...] to maintain effectiveness in symptomatic relief - 50379.?Debride skin< 25 sq cm:?Open wound?Physician of record [...] of the wound post debridement is stable (75591).?Nail Avulsion:?Location?Lateral nail border , T5.?Anesthesia?was accomplished TOPICALLY [...] Motrin was recommended for pain or discomfort (19675) , Pt DEFERS matricectomy ,.? * Procedure Codes:?01400 DEBRI DE NAIL, 6 OR MORE, Modifiers: XS 25882 Avulsion Plate, Modifiers: T5 12655 ACTIVE WOUND CARE/20 CM OR <, Modifiers: [...] Rosa DPM Date:?2023 Generated for William ingram/Kaity/Javi on:?12/18/2024 02:10 PM EDT History and Physical [...]
--- OUTSIDE RECORDS SUMMARY | 2024-12-18 14:10 | XMS_ITS | Patient Health Record ---
Author Organization [facility] Address [address] [place] [address] Support Name Relationship Address Phone DEVORA DUBOSE Guarantor Unknown [phone] Reason For Referral No Information Medications Medication SIG (Take, Route, Fr equency, Duration) Notes Start Date End Date Status Fluconazole 50MG 5ML ORAL WEEKLY for 7 Cas-MJ 12/19/2011 Active Immunizations Vaccine Route Administration Date Status Comme nts Influenza, live, intranasal Intramuscular 12/19/2011 Pendi ng Problems Problem Type SNOMED Code ICD Code Onset Dates Problem Status W/U Status Risk Notes Problem Gynecological examination normal (980271629715235) Routine gynecological examination (V72.31) Active confirmed Diag Plan Of Treatment No Information Insurance Providers Payer Name Payer Address Payer Phone Subscriber Number Group Number Insured Name Patient Relationship to Insured Coverage Start Date Coverage End Date [facility] INDEMNITY PLAN [address] [place], [place] [id number] DEVORA DUBOSE Self - patient is the insured
--- OUTSIDE RECORDS SUMMARY | 2024-12-18 14:11 | XMS_ITS | Data Portability ---
Author Organization [place] [facility], Allergy Address [address] [address] Care Team Providers Care Resaw Feeder Name Role Phone SORIN SANDERSANNA Primary Care Provider [phone] Assessment Encounter Date Assessment Date Assessment LastModified [...] call for reevaluation. Otherwise follow-up as needed. [email or web address] Not available 05/06/2024 11:24:19 Plan of Treatment [...] Details Recorded Time Otalgia of left ear 4488864651 Active 2020 Otalgia, left ear; Note: Date Diagnosed : 05/27/2021 2:03 PM (H92.02) Not Available [facility] 4 03:16:49 Bilateral earache 551592453 Active 2022 Otalgia, bilateral ; Note: Date Diagnosed : 06/19/2023 2:26 PM (H92.03) Not Available [facility] 4 03:16:50 Dizziness and giddiness 284410256 Active 2021 Dizziness and giddiness ; Note: Date Diagnosed : 03/27/2022 5:05 PM (R42) Not Available [facility] 4 03:16:49 Allergic rhinitis 12970177 Active 2021 Other allergic rhinitis; Note: Date Diagnosed : 03/27/2022 5:05 PM (J30.89) Not Available [facility] 4 03:16:49 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 Other specified disorders of temporoma ndibular joint; Note: Date Diagnosed : 05/27/2021 2:08 PM (M26.69) Not Available [facility] 4 03:16:50 Posterior rhinorrhe a 23243452 Active 2021 Postnasal drip; Note: Date Diagnosed : 06/27/2022 12:20 PM (R09.82) Not Available [facility] 4 03:16:50 Nasal congestio n 32867566 Active 2021 Nasal congestio n; Note: Date Diagnosed : 03/27/2022 5:05 PM (R09.81) Not Available [facility] 4 03:16:49 Benign paroxysma l positiona l vertigo 165745645 Active 2021 Benign paroxysma l vertigo, unspecifi ed ear; Note: Date Diagnosed : 03/27/2022 5:17 PM (H81.10) Not Available Replaced by [facility] 4 03:16:50 Arthralgi a of temporoma ndibular joint 34756704 Active 2023 SAMUEL FONG PA-C [address] [place] [address],[place] [address], [facility] [place], [place], [address] , [place] - [facility] 4 11:24:38 Problem Notes None recorded. Procedures Surgical History Date Name Laterality Status Provider Name and Address Organization Details Recorded Time lithotripsy completed Cherry Roberts [place] [facility] 05/06/2024 10:31:08 Imaging Results Imaging Date Name Status LastModified by [facility] Details LastModified Time 01/05/2022 imaging/diag nostic result completed Information not available 05/27/2024 22:10:30 06/19/2023 imaging/diag nostic result completed Information not available 05/27/2024 22:11:02 Procedure Notes None recorded. Medical Equipment None Reported. Allergies Allergen ID Allergen Name Allergen Category Reaction Reaction Severity Criticality Documentation Date Start Date Code Code System Note Provider Name and Address Organization Details Recorded Time 66985 erythromy omar medicatio n other Not available Not available 02/18/2024 4053 RxNorm React ion: Unkno wn; Not Available Replaced by [facility] 4 00:48:36 Medications Name Sig Start Date Stop Date Status Note LastModified by Organization Details LastModified Time amoxicill in 500 mg capsule 05/06 completed Medicati on ID: [id number] B rand Name: amoxicil shameka Send Method: E-Prescr ibed Sub s Allowed: subs OK Speci al Instruct ion: TAKE 1 CAPSULE BY MOUTH THREE TIMES A DAY Medi cationGe nericNam e: amoxicil shameka Medi cation ID: [id number] B rand Name: amoxicil shameka Send Method: E-Prescr ibed Sub s Allowed: subs OK Speci al Instruct ion: TAKE 1 CAPSULE BY MOUTH THREE TIMES A DAY Medi cationGe nericNam e: amoxicil shameka Not Available Not Available Not Available gabapenti n 600 mg tablet active Medicati on ID: 292956 B rand Name: gabapent in Send Method: [...] 1 gram tablet active Medicati on ID: 075290 B rand Name: valacycl ovir Sen d Method: E-Prescr ibed Sub s Allowed: subs OK Speci al Instruct ion: TAKE 1 TABLET BY MOUTH 3 TIMES A DAY Medi cationGe nericNam e: valacycl ovir Not Available Not Available Not Available lisinopri l 20 mg tablet active Medicati on ID: 098058 B rand Name: lisinopr il Send Method: [...] 10 mg tablet active Medicati on ID: 922741 B rand Name: amlodipi ne Send Method: [...] % topical ointment active Medicati on ID: 945943 B rand Name: mometaso ne Send Method: [...] as directed 2021 active Medicati on ID: 441469 B rand Name: azelasti ne Send Method: [...] applicato r 05/06 completed Medicati on ID: 591354 B rand Name: hydrocor tisone S end Method: E-Prescr ibed Sub s Allowed: subs OK Speci al Instruct ion: APPLY TOPICALL Y 4 TIMES DAILY NEEDED M tomer nGeneric Name: torsten jeff n ID: [id number] B rand Name: torsten Mccoy end Method: [...] SNOMED-CT Code Diagnosis ICD10 Code Diagnosis Note 84517 LUIS STEEN MD [facility] [address] [address] 05/06/2024 10:20:40 05/06/2024 10:55:09 Bilateral earache 242259893 H92.03 Arthralgia of temporomandibular joint 21824172 M26.629 Health Concerns Section Related Observation LastModified by Organization Detai ls LastModified Time None Recorded Concern Status LastModified by Organization Details LastModified Time None Recorded Advance Directives Directive None Recorded Payers Encounter Date Sequence Insurance Name Policy Number Policy Gerard Covered Member ID Gerard Member ID Guarantor Name 05/06/2024 1 [facility] [id number] Radha Blandon [id number] Radha Blandon Notes Date Note Type Note [...] drainage within the ears. LUIS PALACIO MD [address] [place] [address], [place], [address], [facility] - [facility] 05/06/2024 12:41:25 OBGyn Episode No OBEpisode recorded.
--- OUTSIDE RECORDS SUMMARY | 2024-12-18 14:11 | XMS_ITS | Clinical Summary ---
Author Organization [facility] Address [address] [place] [address] Care Team Providers Care Retail Advertising Executive Name Role Phone Unavailable Primary Care Provider Unavailabl e Surgical History Surgery Date Site/Laterality Comments OTHER SURGICAL HISTORY 1999 PROCEDURE: [place] ERCP DESTRUCTION/LITHOTRIPSY CALCULI ANY METHOD OTHER SURGICAL HISTORY 03/22 PROCEDURE: MAMMOGRAM COLONOSCOPY 01/07 PROCEDURE: [place] COLONOSCOPY STOMA DX INCLUDING COLLJ SPEC SPX; COMMENT: [facility] COLONOSCOPY 02/11/2014 PROCEDURE: [place] COLONOSCOPY FLX DX W/COLLJ SPEC WHEN PFRMD; COMMENT: normal Medical History Medical History Date Comments Calculus of kidney DX:Calculus o f kidney Dermatophytosis of nail 04/04/2006 DX:[place] tophytosis of nail Primary localized osteoarthr osis, [...] Upcoming Encounters Date Type Department Care Team ([facility] st Contact Info) Description 05/19/2025 10:30 AM EDT Appointment Radiology Department [address] [address] Health Maintenance Due Date Last Done Comments [...] classified as having normal bone density. [facility] Department of Internal Medicine recommends using [...] beclassified as having normal bone density. [facility] Department of Internal Medicine recommendsusing National [...]
--- OUTSIDE RECORDS SUMMARY | 2024-12-18 14:11 | XMS_ITS ---
Author Organization [facility] Address [address] [place] [address] Care Team Providers Care Impression Printer Name Role Phone Viola Mack MD Primary Care Provider Unavaila ble Black, Katharina Unavailable [phone] Allergies Allergen (clinical drug ingredient) Drug/Non Drug [...] injury of right foot stage I (disorder) (37530058529 4102) Pressure injury of right foot, stage 1 (L89.891) Active confirmed Response to treatment - Improvement Vital Signs Height 5ft 8in in 06/15/2024 Weight 265 lbs 06/15/2024 BMI 40.29 kg/m2 06/15/2024 Blood pressure systolic 148 mm Hg 06/15/20 24 Blood pressure diastolic 54 mm Hg 024 Procedures Procedure Date Ordered Date Performed Result Body Sit e 11231-AGWNPXH NAIL, 6 OR MORE 06/15/2024 N/A 05741-Ugtmhlzf Plate 06/15/2024 N/A 81573- Debride <25 sq cm 06/15/2024 N/A Encounters Encounter Location Date Provider Diagnosis [facility] [address] [place] [address] 06/15/2024 Katharina Black Tinea unguium B35.1 ; [...] INSTRUCTIONS.pdf) Pending Test Test Name Order Date 47531-JVPEHLS NAIL, 6 OR MORE 06/15/2024 11056-Pgvjbbyb Plate 06/15/2024 94657- Debride <25 sq cm 06/15/2024 Next Appt Details Follow Up: 6 Weeks, Reason: Provider Name:Katharina Beard Rj , 12/28/2024 11:30:00 AM, [address] [place] [address], [address], Procedure Notes * Category Sub-Category Detail Notes [...] Motrin was recommended for pain or discomfort (70800) , Pt DEFERS matricectomy Anesthesia was accomplished [...] as necessary. Patient chooses, no pharmaceutical tx (70946) Debride skin< 25 sq cm Open wound [...] of the wound post debridement is stable (81102) Progress Notes * CHAOJENNRadha GUSTAFSON EDOB: (73 yo F)Acc No.[id number]:06/15/2024 Progress Note Patient:?Radha Blandon Provider:?Katharina De La Rosa DPM :1950???Age:73 Y???Sex:Female D ate:06/15/2024 Address:[address] [place], [place] [address] Pcp:Viola Mack MD Subjective: * Chief Complaints: * ???Painful nail(s) aggrevate d by shoes causing difficulty standing/walkingOpen soreIngrown Nail * HPI: ???Painful Nails:?Pt States Last PCP Visit:?Date:?03/03/2024 ???Skin problems:?Treatments:?none.? * Medical History:? * Surgical History:?Lithotrips y 2019eye surgery, lenses 09/28 * Hospitalization/Major Diagno stic Procedure:?[facility]- rapid heart rate 10/11/23 * Family History:?Mother: [...] - L60.0? Plan: * Treatment: 2.?Tinea unguium?Procedure: 29674-EXGAVMY NAIL, 6 OR MORE 3.?Ingrown nail?Procedure: 20196-Smevwfev Plate * Procedures:?Debride Nail 6-10:?Nail debridement?Nail debridement performed extensively to reduce/remove overall nail length, girth, thickness, subungual debris, and necrotic tissue, by manual and electrical means through the use of a nail nipper and/or dremel, to more viable healthy nail plate or bed tissue 1-5. Silver nitrate used for any petechial bleeding as necessary. Patient chooses, no pharmaceutical tx (44302).?Debride skin< 25 sq cm:?Open wound?Physician of record [...] of the wound post debridement is stable (11747).?Nail Avulsion:?Location?Lateral nail border , TA.?Anesthesia?was accomplished TOPICALLY [...] Motrin was recommended for pain or discomfort (43490) , Pt DEFERS matricectomy.? * Procedure Codes:?86112 DEBRI DE NAIL, 6 OR MORE, Modifiers: XS 91367 Avulsion Plate, [place]: [place] [address] ACTIVE WOUND CARE/20 CM OR <, Modifiers: [...]
--- OUTSIDE RECORDS SUMMARY | 2024-12-18 14:11 | XMS_ITS | Patient Health Record ---
Author Organization [facility] Address [address] [facility] [place] [address] Care Team Providers Care Metrology Technician Name Role Phone Viola Mack MD Primary Care Provider Unavaila marc Black, Katharina Unavailable [phone] Allergies Allergen (clinical drug ingredient) Drug/Non Drug [...] primary osteoarthritis of the ankle and/or foot (523377013) Primary osteoarthrit is, left ankle and foot (M19.072) Active confirmed Problem Non-pressure ulcer lower limb (510152717) Non-pressure chronic ulcer of other part of right foot limited to breakdown of skin (L97.511) Active confirmed Problem Acquired hammer toe of right foot (7686474829886407 ) Other hammer toe(s) (acquired), right foot (M20.41) Active confirmed Problem Acquired hammer toe of left foot (0257389715245605 ) Other hammer toe(s) (acquired), left foot (M20.42) Active confirmed Problem Pressure injury of right foot stage I (disorder) (315797492229271) Pressure injury of right foot, stage 1 (L89.891) Active confirmed Response to treatment - Improvement Vital Signs Blood pressure diastolic 56 mm Hg 09/21/2024 Height 5ft8in in 09/21/2024 Blood pressure systolic 172 mm Hg 09/21/2024 Weight 265 lbs 09/21/2024 BMI 40.29 kg/m2 09/21/2024 Procedures Procedure Date Ordered Date Performed Result Body Sit e 90251-ECZXORW NAIL, 6 OR MORE 02/24/2024 N/A 53198-HQXYCNR NAIL, OR MORE 06/15/2024 N/A 75673-Cdrqwlax Plate 06/15/2024 N/A 28072- Debride <25 sq cm 06/15/2024 N/A 86780-OACYSFK NAIL, 6 OR MORE 09/21/2024 N/A 35490-Unihgwoj Plate 09/21/2024 N/A 17455- Debride <25 sq cm 09/21/2024 N/A Encounters Encounter Location Date Provider Diagnosis [address] [address] 02/24/2024 Katharina Black Tinea unguium B35.1 ; Pain in right toe(s) M79.674 and Pain in left toe(s) M79.[address] [address] 06/15/2024 Katharina Black Tinea unguium B35.1 ; Pressure injury of right foot, stage 1 L89.891 ; Pain in right toe(s) M79.674 ; Pain in left toe(s) M79.675 and Ingrown nail L60.[address] [address] 09/21/2024 Katharina Black Pressure injury of right [...] Treatment Pending Test Test Name Order Date 66735-MEUGYRU NAIL, 6 OR MORE 08/07/2021 44852-NEKCHEN NAIL, 6 OR MORE 12/11/2021 38892-EITJBKM NAIL, 6 OR MORE 04/16/2022 52989-LCQAVQM NAIL, 6 OR MORE 08/20/2022 35888-DSIDQJB NAIL, 6 OR MORE 12/31/2022 44256-FUHZZMD NAIL, 6 OR MORE 05/06/2023 69895-RSAMDMD NAIL, 6 OR MORE 11/14/2023 06241-KTYRQCU NAIL, 6 OR MORE 02/24/2024 87592-GHMIRKS NAIL, 6 OR MORE 06/15/2024 74192-ORQAWCR NAIL, 6 OR MORE 09/21/2024 16017-Bzbrnpqt Plate 09/21/2024 11142-Ygumyxoi Plate 05/06/2023 73975-Ydzvguby Plate 06/15/2024 32606-Ajdgtcxw Plate 12/31/2022 71116- Debride <25 sq cm 12/11/2021 56947- Debride <25 sq cm 05/06/2023 15027- Debride <25 sq cm 12/31/2022 85816- Debride <25 sq cm 08/20/2022 55322- Debride <25 sq cm 04/16/2022 22570- Debride <25 sq cm 09/04/2021 07912- Debride <25 sq cm 04/16/2018 01046- Debride <25 sq cm 05/25/2021 62818- Debride <25 sq cm 08/07/2021 85247- Debride <25 sq cm 09/21/2024 71554- Debride <25 sq cm 06/15/2024 23021,L9593-QVJ TENDON SHEATH/LIGAMENT 1 10/07/2020 61593,M4796-RNQ TENDON SHEATH/LIGAMENT 0 05/25/2021 63093,O0154-OJA TENDON SHEATH/LIGAMENT 1 11/04/2020 Next Appt Details Provider Name:Katharina De La Rosa , 12/28/2024 11:30:00 AM, [address] [place] [address], [address], Insurance Providers Payer Name Payer Address Payer Phone Subscriber Number Group Number Insured Name Patient Relationship to Insured Coverage Start Date Coverage End Date [facility]) [address] [place], [place] [id number] [facility] Radha Blandon Self - patient is the insured Medical (General) History Medical History History ICD Code Anemia Anxiety disorder Arthritis Back,Hip,and Knee pain Chicken pox High blood pressure Kidney stones Measles Mumps Broken bones Sciatica A fib Surgical History Surgery Date(Month/Year) Lithotripsy 2019 eye surgery, lenses 09/28 Hospitalization History Reason Date(Month/Year) [facility]- rapid heart rate 10/11/23
--- OUTSIDE RECORDS SUMMARY | 2024-12-18 14:11 | XMS_ITS | Clinical Summary ---
Author Organization [facility] Address [address] [place] [address] Phone Care Team Providers Care Publishing Director Name Role Phone Viola Mack MD Primary Care Provider [phone] Allergies Active Allergy Reactions Criticality Noted Date [...] Care Team (Late st Contact Info) Description 02/04/2025 10:00 AM EDT Office Visit [facility] [address] [phone] Justin Espitia MD [address] [address] Health Maintenance Due Date Last Done Comments Breast Cancer Screening 1950 Pneumococcal Vaccine: 65+ Ye ars (1 of 2 - PCV) 1957 Colorectal Cancer Screening: Annual FOBT 2000 Colorectal Cancer Screening: Colonoscopy 2000 Colorectal Cancer Screening: Sigmoidoscopy 2000 Influenza Vaccine (#1) 2024 Hepatitis B Vaccine Aged Out No longe r eligible based on patient's age to complete this topic Insurance [facility] [employer] Care Teams Publishing Director Relationship Specialty Start Date End Date Viola Mack MD [address] [place] [address] PCP - General Internal Medicine 08/21/22
[2024-12-18 16:47] LABS: Anion Gap 12 (12-20); Blood Urea Nitrogen 35 mg/dL (9-16); Calcium 9.4 mg/dL (8.4-10.2); Carbon Dioxide 23 mmol/L (22-29); Chloride 108 mmol/L (96-108); Estimated Glomerular Filt Rate 46; Glucose Random 76 mg/dL (60-115); Potassium 3.9 mmol/L (3.3-5.1); Sodium 139 mmol/L (135-145)
== END 2024-12-18 12:37 | disposition home or self-care (01) ==
LOC: HO.HMGCLDS 12:36
PROVIDERS: PCP Internal Medicine; Visit Provider Internal Medicine
DX: I10 Essential (primary) hypertension (principal)
CPT/HCPCS: 36415; 80048

== ENCOUNTER 2025-01-11 10:47 | Outpatient (AMB) | payer OTHER, SELFPAY ==
[2025-01-11 10:57] VITALS: BP 135/75; PULSE 64; RESP 18; TEMP 36.4; O2SAT 98; BMI 42.0
--- NOTE | 2025-01-11 10:57 | A.OFFPC_ITS ---
Vital Signs 01/11/25 10:57 Height 5 ft 8 in Weight 276 lb BMI 42.0 BP 135/75 Blood Pressure Location Rt brachial Position Sitting Respiration 18 Pulse 64 Pulse Source Pulse Oximeter Temp 97.5 F Temp Source Oral Pulse Oximetry (%) 98 Oxygen Delivery Method Room Air Intake Visit Reasons: 1m follow up Intake Note: Pt is here today for 1 month follow up visit. Allergies metoprolol Allergy (Severe, Verified 01/11/25 10:57) Rash doxycycline Adverse Reaction (Intermediate, Verified 01/11/25 10:57) Abdominal Pain methylprednisolone Adverse Reaction (Intermediate, Verified 01/11/25 10:57) rapid heart rate erythromycin base Adverse Reaction (Unknown, Verified 01/11/25 10:57) upset stomach nausea dapagliflozin [From [facility]] Adverse Reaction (Verified 01/11/25 11:51) candidiasis Medication List - Last Reconciled 01/11/25 by Viola Mack MD amlodipine 2.5 mg PO DAILY apixaban (Eliquis) 5 mg PO BID atenolol 50 mg PO DAILY desonide 0.05% topical fluconazole 150 mg PO Q3D 2 doses fluticasone propionate 50 mcg/actuation 1 spray intranasal BID PRN furosemide 20 mg PO Q OTHER DAY glucosamine sulfate 750 mg PO ONCE lisinopril 20 mg PO DAILY multivitamin 1 tab PO DAILY Ozempic (semaglutide) 0.25 mg (0.368 mL) subcut QWEEK NS spironolactone 25 mg PO DAILY Tobacco use date assessed: 01/11/25 Last assessed Fall Risk: 01/11/25 Dental Screening Dental Screen Date: 12/02/24 HPI 1m follow up HPI Details Patient presents follow-up on hypertension chronic kidney disease morb id obesity lower extremity lymphedema paroxysmal AFib. Patient has been tolerating higher dose of lisinopril. She has noticed decreased lower extremity swelling since decreasing the dose of amlodipine. Patient tried furosemide for lower extremity edema but did not notice any improvement. Patient has been decreasing caloric intake increasing physical activity for over 6 months in effort to lose weight. Patient would like to try GLP 1 agonist in order to facilitate weight loss. [facility] Medical History (Updated 01/11/25 @ 11:56 by Viola Mack MD) Atrial fibrillation CKD (chronic kidney disease) stage 3, GFR 30-59 ml/min SHARIF (obstructive sleep apnea) Retrognathia Chest pain Morbid obesity Hyperlipemia Annual physical exam Mammogram normal DJD (degenerative joint disease), lumbar Anxiety HTN (hypertension) Surgical History H/O bilateral cataract extraction H/O lithotripsy H/O colonoscopy Family History Father No problems noted. Mother HTN (hypertension) Social History Housing: House Alcohol intake: current Alcohol intake frequency: holidays/special occasions only Patient Tobacco Use Status: Never used Tobacco e-Cigarette/Vaping Use: Never Used Second Hand Smoke Exposure: No service: No Current occupational status: retired Cognitive needs: No Hearing needs: No Vision needs: Yes Questionnaire Thrive Questionnaire Date Thrive assessed: 12/03/24 I am a: Patient What is your living situation today?: I have a steady place to live Within the past 12 months, did the food you bought not last and you didn't have the money to get more?: Never true Within the past 12 months, did you worry whether your food would run out before you got money to buy more?: Never true Do you have trouble paying for medicines?: No Do you have trouble getting transportation to medical appointments?: No Do you have trouble paying your heating and electricity bill?: No Do you have trouble taking care of your child, family member or friend?: No Do you have trouble with day-to-day activities such as bathing, preparing meals, shopping, managing finances, etc.?: No Are you currently unemployed and looking for a job?: No Are you interested in more education?: No Please select the resources that you would like help with: None Currently or been in a relationship where the following occur: No concerns reported THRIVE Score: 0 HANNA-7 AMB Questionnaire HANNA-7 Date HANNA - 7 assessed: 09/10/24 Source: Developed by Drs. Gopi Baker, Stefani Doyle, Alfonso Carey and colleagues, with an educational jeancarlos from [employer] Review of Systems Const All systems reviewed & are unremarkable except as noted in HPI and below Eyes Reports no additional complaints ENT Reports no additional complaints Card Reports no additional complaints Resp Reports no additional complaints GI Reports no additional complaints Reports no additional complaints Physical exam (Primary Care) Vital Signs: Last Vital Signs Temp 97.5 F 01/11/25 10:57 Pulse 64 01/11/25 10:57 Resp 18 01/11/25 10:57 Pulse Ox 98 01/11/25 10:57 Oxygen Delivery Method Room Air 01/11/25 10:57 BMI result Body Mass Index 42.0 Tobacco/Smoking Status: Tobacco use Status Tobacco use date assessed 01/11/25 01/11/25 10:58 Patient Tobacco Use Status Never used Tobacco 01/11/25 10:58 e-Cigarette/Vaping Use Never Used 01/11/25 10:58 Thrive Assessment: Date of Thrive Assessment Date Thrive assessed 12/03/24 01/11/25 10:58 Currently or been in a relationship where the following occur: No concerns reported Const General: no acute distress HENMT Mouth: Normal oral and palatal mucosa present Neck Neck: Yes supple Resp Effort & Inspection: normal respiratory effort Auscultation: clear to auscultation bilaterally Cardio Rhythm: regular rhythm Heart sounds: S1 normal heart sound present and S2 normal heart sound present GI Inspection: Yes normal to inspection Extrem Other: Chronic lymphedema lower extremities 2+ pitting edema bilaterally Coding Level of Care Code Est Pt Level 4 (84115) Diagnoses CKD (chronic kidney disease) stage 3, GFR 30-59 ml/min N18.30 Atrial fibrillation I48.91 Morbid obesity E66.01 HTN (hypertension) I10 Assessment & Plan Assessment & Plan (1) CKD (chronic kidney disease) stage 3, GFR 30-59 ml/min: Comment: started Farxiga 09/28 but stopped on 10/20/23 because of rash, patient's roller gold leaf did not recommend SGTP2 inhibitor Code(s): N18.30 - Chronic kidney disease, stage 3 unspecified Category: Medical Plan: Monitor renal function follow-up with nephrology (2) Atrial fibrillation: Comment: 10/11/23 ER visit, started on Eliquis, metoprolol ? allergic reaction, rash Code(s): I48.91 - Unspecified atrial fibrillation Category: Medical Plan: Rate controlled on atenolol anticoagulated on Eliquis (3) Morbid obesity: Comment: BMI= 42.0 PATIENT IS THE DEFINITELY OVERWEIGHT. OBESITY IS MAINLY TRUNCAL AND OF THE LOWER EXTREMITIES. SHE HAS CHRONIC LYMPHEDEMA AND STASIS EDEMA Code(s): E66.01 - Morbid (severe) obesity due to excess calories Category: Medical Plan: Decreasing caloric intake increasing physical activity discussed with the patient. Ozempic to 0.5 mg weekly will be sent to the pharmacy (4) HTN (hypertension): Code(s): I10 - Essential (primary) hypertension Category: Medical Plan: Continue current medications and add spironolactone 25 mg, check BMP in 1 week. Patient has a follow-up with nephrology next month Orders: Orders Basic Metabolic Panel 1 Week N18.30 - Chronic kidney disease, stage 3 unspecified Medications: New spironolactone 25 mg PO DAILY 90 tabs 1RF Ozempic (semaglutide) 0.25 mg (0.368 mL) subcut QWEEK 3 mL 2RF NS Refilled fluconazole 150 mg PO Q3D 2 tabs 0RF
--- OUTSIDE RECORDS SUMMARY | 2025-01-11 12:51 | XMS_ITS ---
Author Organization [facility] Address [address] [place] [address] Care Team Providers Care Plant Science Professor Name Role Phone Viola Mack MD Primary Care Provider Unavaila Katharina Lawrence Unavailable [phone] Saha Encounters Encounter Location Date Provider Diagnosis [facility] [address] [place] [address] 12/28/2024 Katharina De La Rosa Plan Of Treatment Next Appt Details Provider Name:Katharina A Rj , 02/03/2025 01:30:00 PM, [address] [facility], [place], [address], Progress Notes * Radha BLANDON EDOB: (74 yo F)Acc No.[id number]:12/28/2024 Progress Note Patient:?Radha BLANDON Provider:?Katharina De La Rosa DPM :1950???Age:74 Y???Sex:Female D ate:12/28/2024 Address:[id number] Pcp:Viola Mack MD Subjective: * Chief Complaints: * ???1. Dr Saha. * Medical History:? Objective: * Vitals:? Assessment: Plan: * Treatment: * Images: * The named appointment provid er may or may not be the originator of this progress note, and it is not deemed complete until electronically signed by the appointment provider. Sign off status: Pending * Provider:Padmini De La Rosa DPM Date:?2024 Generated for William ingram/Kaity/Javi on:?01/11/2025 12:51 PM EDT
--- OUTSIDE RECORDS SUMMARY | 2025-01-11 12:52 | XMS_ITS ---
Author Organization [facility] Address [address] [place] [address] Care Team Providers Care Kapok And Cotton Machine Operator Name Role Phone Viola Mack MD Primary Care Provider Unavaila ble Black, Katharina Unavailable [phone] Allergies Allergen (clinical drug ingredient) Drug/Non Drug [...] Ordered Date Performed Result Body Sit e 19406-SQJAVQV NAIL, 6 OR MORE 09/21/2024 N/A 65889-Uypijmth Plate 09/21/2024 N/A 57104- Debride <25 sq cm 09/21/2024 N/A Encounters Encounter Location Date Provider Diagnosis [facility] [address] [place] [address] 09/21/2024 Katharina Black Pressure injury of right [...] INSTRUCTIONS.pdf) Pending Test Test Name Order Date 32532-NHDPJUC NAIL, 6 OR MORE 09/21/2024 61277-Xzlbsiqo Plate 09/21/2024 33857- Debride <25 sq cm 09/21/2024 Next Appt Details Follow Up: 2 Weeks,prn, Reas on: Provider Name:Katharina Beard Rj , 02/03/2025 01:30:00 PM, [address] [facility], [place], [address], Procedure Notes * Category Sub-Category Detail Notes [...] Motrin was recommended for pain or discomfort (39623) , Pt DEFERS matricectomy , Anesthesia was [...] use of a nail nipper and/or dremel-type lens edge grinder machine, to a more viable healthy nail plate [...] to maintain effectiveness in symptomatic relief - 90031 Debride skin< 25 sq cm Open wound [...] of the wound post debridement is stable (54249) Progress Notes * Radha BLANDON EDOB: (74 yo F)Acc No.[id number]:09/21/2024 Progress Note Patient:Radha PADILLA Provider:?Katharina De La Rosa DPM :1950???Age:74 Y???Sex:Female D ate:09/21/2024 Address:[address] [place] [address] [place] Pcp:Viola Mack MD Subjective: * Chief Complaints: [...] surgery, lenses 09/28 * Hospitalization/Major Diagno stic Procedure:?[facility] [place]- rapid heart rate 10/11/23 * Family History:?Mother: [...] 2.?Pressure injury of right foot, stage 1?Procedure: 57145- Debride <25 sq cm Notes: Patient Educated with: WOUND CARE INSTRUCTIONS.pdf (WOUND CARE INSTRUCTIONS.pdf)?? 3.?Tinea unguium?Procedure: 40939-PENRNNM NAIL, 6 OR MORE 4.?Ingrown nail?Procedure: 54153-Zbtgcfgw Plate * Procedures:?Debride Nail 6-10:?Nail debridement?Due to [...] of a nail nipper and/or dremel- type lens edge grinder machine, to a more viable healthy nail plate [...] to maintain effectiveness in symptomatic relief - 06792.?Debride skin< 25 sq cm:?Open wound?Physician of record [...] of the wound post debridement is stable (42041).?Nail Avulsion:?Location?Lateral nail border , T5.?Anesthesia?was accomplished TOPICALLY [...] Motrin was recommended for pain or discomfort (21742) , Pt DEFERS matricectomy ,.? * Procedure Codes:?28863 DEBRI DE NAIL, 6 OR MORE, Modifiers: XS 21772 Avulsion Plate, Modifiers: T5 84402 ACTIVE WOUND CARE/20 CM OR <, Modifiers: [...] Rosa DPM Date:?2023 Generated for William ingram/Kaity/Javi on:?01/11/2025 12:51 PM EDT History and Physical Notes * [...]
--- OUTSIDE RECORDS SUMMARY | 2025-01-11 12:52 | XMS_ITS | Patient Health Record ---
Author Organization [facility] Address [address] [facility] [address] [place] [address] Support Name Relationship Address Phone DEVORA DUBOSE Guarantor Unknown [phone] Reason For Referral No Information Medications Medication SIG (Take, Route, Fr equency, Duration) Notes Start Date End Date Status Fluconazole 50MG 5ML ORAL WEEKLY for 7 Cas-MJ 12/19/2011 Active Immunizations Vaccine Route Administration Date Status Comme nts Influenza, live, intranasal Intramuscular 12/19/2011 Pendi ng Problems Problem Type SNOMED Code ICD Code Onset Dates Problem Status W/U Status Risk Notes Problem Gynecological examination normal (343001442461852) Routine gynecological examination (V72.31) Active confirmed Diag Plan Of Treatment No Information Insurance Providers Payer Name Payer Address Payer Phone Subscriber Number Group Number Insured Name Patient Relationship to Insured Coverage Start Date Coverage End Date [facility] IN[employer]MNITY PLAN [address] [place], [place] [id number] DEVORA DUBOSE Self - patient is the insured
--- OUTSIDE RECORDS SUMMARY | 2025-01-11 12:52 | XMS_ITS | Data Portability ---
Author Organization [place] [facility] Address [address] [address] Care Team Providers Care Tafe Registrar Name Role Phone SORIN SANDERSANNA Primary Care Provider [phone] Assessment Encounter Date Assessment Date Assessment LastModified [...] call for reevaluation. Otherwise follow-up as needed. Not available 05/06/2024 11:24:19 Plan of Treatment [...] Details Recorded Time Otalgia of left ear 5410915978 Active 2020 Otalgia, left ear; Note: Date Diagnosed : 05/27/2021 2:03 PM (H92.02) Not Available [facility] 4 03:16:49 Bilateral earache 223680328 Active 2022 Otalgia, bilateral ; Note: Date Diagnosed : 06/19/2023 2:26 PM (H92.03) Not Available [facility] 4 03:16:50 Dizziness and giddiness 697651109 Active 2021 Dizziness and giddiness ; Note: Date Diagnosed : 03/27/2022 5:05 PM (R42) Not Available [facility] 4 03:16:49 Allergic rhinitis 79718567 Active 2021 Other allergic rhinitis; Note: Date Diagnosed : 03/27/2022 5:05 PM (J30.89) Not Available [facility] 4 03:16:49 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 Other specified disorders of temporoma ndibular joint; Note: Date Diagnosed : 05/27/2021 2:08 PM (M26.69) Not Available [facility] 4 03:16:50 Posterior rhinorrhe a 43578268 Active 2021 Postnasal drip; Note: Date Diagnosed : 06/27/2022 12:20 PM (R09.82) Not Available [facility] 4 03:16:50 Nasal congestio n 60821693 Active 2021 Nasal congestio n; Note: Date Diagnosed : 03/27/2022 5:05 PM (R09.81) Not Available [facility] 4 03:16:49 Benign paroxysma l positiona l vertigo 967966829 Active 2021 Benign paroxysma l vertigo, unspecifi ed ear; Note: Date Diagnosed : 03/27/2022 5:17 PM (H81.10) Not Available [facility] 4 03:16:50 Arthralgi a of temporoma ndibular joint 30229050 Active 2023 SAMUEL FONG PA-C [address] [place] [address],[place] [address], [facility] [place], [place], [address] , [place] - [facility] 4 11:24:38 Problem Notes None recorded. Procedures Surgical History Date Name Laterality Status Provider Name and Address Organization Details Recorded Time lithotripsy completed Cherry Roberts [place] - [facility] 05/06/2024 10:31:08 Imaging Results Imaging Date Name Status LastModified by Organ[facility] Details LastModified Time 01/05/2022 imaging/diag nostic result completed Information not available 05/27/2024 22:10:30 06/19/2023 imaging/diag nostic result completed Information not available 05/27/2024 22:11:02 Procedure Notes None recorded. Medical Equipment None Reported. Allergies Allergen ID Allergen Name Allergen Category Reaction Reaction Severity Criticality Documentation Date Start Date Code Code System Note Provider Name and Address Organization Details Recorded Time 25292 erythromy omar medicatio n other Not available Not available 02/18/2024 4053 RxNorm React ion: Unkno wn; Not Available [facility] 4 00:48:36 Medications Name Sig Start Date Stop Date Status Note LastModified by Organization Details LastModified Time amoxicill in 500 mg capsule 05/06 completed Medicati on ID: [id number] B rand Name: amoxicil shameka Send Method: E-Prescr ibed Sub s Allowed: subs OK Speci al Instruct ion: TAKE 1 CAPSULE BY MOUTH THREE TIMES A DAY Medi cationGe nericNam e: amoxicil shameka Medi cation ID: [id number] B rand Name: amoxicil shameka Send Method: E-Prescr ibed Sub s Allowed: subs OK Speci al Instruct ion: TAKE 1 CAPSULE BY MOUTH THREE TIMES A DAY Medi cationGe nericNam e: amoxicil shameka Not Available Not Available Not Available gabapenti n 600 mg tablet active Medicati on ID: [id number] B rand Name: gabapent in Send Method: [...] 1 gram tablet active Medicati on ID: 357884 B rand Name: valacycl ovir Sen d Method: E-Prescr ibed Sub s Allowed: subs OK Speci al Instruct ion: TAKE 1 TABLET BY MOUTH 3 TIMES A DAY Medi cationGe nericNam e: valacycl ovir Not Available Not Available Not Available lisinopri l 20 mg tablet active Medicati on ID: 146376 B rand Name: lisinopr il Send Method: [...] 10 mg tablet active Medicati on ID: 339663 B rand Name: amlodipi ne Send Method: [...] % topical ointment active Medicati on ID: 607621 B rand Name: mometaso ne Send Method: [...] as directed 2021 active Medicati on ID: 251165 B rand Name: azelasti ne Send Method: [...] applicato r 05/06 completed Medicati on ID: [id number] B rand Name: hydrocor tisone S end Method: E-Prescr ibed Sub s Allowed: subs OK Speci al Instruct ion: APPLY TOPICALL Y 4 TIMES DAILY NEEDED M tomer nGeneric Name: tosrten jeff n ID: [id number] B rand Name: torsten Mccoy end Method: [...] SNOMED-CT Code Diagnosis ICD10 Code Diagnosis Note 13379 LUIS STEEN MD [facility] [address] [address] 05/06/2024 10:20:40 05/06/2024 10:55:09 Bilateral earache 995280230 H92.03 Arthralgia of temporomandibular joint 82796410 M26.629 Health Concerns Section Related Observation LastModified by Organization Detai ls LastModified Time None Recorded Concern Status LastModified by Organization Details LastModified Time None Recorded Advance Directives Directive None Recorded Payers Encounter Date Sequence Insurance Name Policy Number Policy Gerard Covered Member ID Gerard Member ID Guarantor Name 05/06/2024 1 [facility] INDEMNITY PLAN [facility] [id number] Radha Blandon [id number] Radha Blandon Notes Date Note Type Note [...] drainage within the ears. LUIS PALACIO MD [address] [place] [address], [place], [address], [facility] - [facility] 05/06/2024 12:41:25 OBGyn Episode No OBEpisode recorded.
--- OUTSIDE RECORDS SUMMARY | 2025-01-11 12:52 | XMS_ITS | Clinical Summary ---
Author Organization [facility] Address [address] [place] [address] Care Team Providers Care Guide Visitor Name Role Phone Unavailable Primary Care Provider Unavailabl e Surgical History Surgery Date Site/Laterality Comments OTHER SURGICAL HISTORY 1999 PROCEDURE: [place] ERCP DESTRUCTION/LITHOTRIPSY CALCULI ANY METHOD OTHER SURGICAL HISTORY 03/22 PROCEDURE: MAMMOGRAM COLONOSCOPY 01/07 PROCEDURE: [place] COLONOSCOPY STOMA DX INCLUDING COLLJ SPEC SPX; COMMENT: [facility] COLONOSCOPY 02/11/2014 PROCEDURE: [place] COLONOSCOPY FLX DX W/COLLJ SPEC WHEN PFRMD; COMMENT: normal Medical History Medical History Date Comments Calculus of kidney DX:Calculus o f kidney Dermatophytosis of nail 04/04/2006 DX:[place] tophytosis of nail Primary localized osteoarthr osis, [...] Upcoming Encounters Date Type Department Care Team ([facility] st Contact Info) Description 05/19/2025 10:30 AM EDT Appointment Radiology Department [address] [address] Health Maintenance Due Date Last Done Comments [...] 05/07/2024, 04/30/2023, Additional history exists RSV Immunization Adult Patients (1 - 1-dose 75+ series) 2026 Osteoporosis [...] classified as having normal bone density. [facility] Department of Internal Medicine recommends using [...] beclassified as having normal bone density. [facility] Department of Internal Medicine recommendsusing National [...]
--- OUTSIDE RECORDS SUMMARY | 2025-01-11 12:52 | XMS_ITS | Clinical Summary ---
Author Organization [facility] Address [address] [place] [address] Phone Care Team Providers Care Employment Services Director Name Role Phone Viola Mack MD Primary Care Provider [phone] Allergies Active Allergy Reactions Criticality Noted Date [...] Team (Late st Contact Info) Description 01/25/2025 Orders Only [facility] [address] [address] Justin Espitia MD [address] [id number] Stage 3a chronic kidney disease (HCC); Personal history of kidney stones; Localized edema; Hypertension 02/04/2025 10:00 AM EDT Office Visit [facility] [address] [phone] Justin Espitia MD [address] [address] Health Maintenance Due Date Last Done Comments Breast Cancer Screening 1950 Pneumococcal Vaccine: 65+ Ye ars (1 of 2 - PCV) 1957 Colorectal Cancer Screening: Annual FOBT 2000 Colorectal Cancer Screening: Colonoscopy 2000 Colorectal Cancer Screening: Sigmoidoscopy 2000 Influenza Vaccine (Season Ended) 2025 Hepatitis B Vaccine Aged Out No longe r eligible based on patient's age to complete this topic Insurance COUNTS INCLUDE 234 BEDS AT THE [facility] COUNTS INCLUDE 234 BEDS AT THE [facility] Care Teams Employment Services Director Relationship Specialty Start Date End Date Viola Mack MD [address] [place] [address] PCP - General Internal Medicine 08/21/22
--- OUTSIDE RECORDS SUMMARY | 2025-01-11 12:52 | XMS_ITS | Patient Health Record ---
Author Organization [facility] Address [address] [place] [address] Care Team Providers Care Switch Inspector Name Role Phone Viola Mack MD Primary Care Provider Unavaila marc Black, Katharina Unavailable [phone] Allergies Allergen (clinical drug ingredient) Drug/Non Drug [...] primary osteoarthritis of the ankle and/or foot (063302217) Primary osteoarthrit is, left ankle and foot (M19.072) Active confirmed Problem Non-pressure ulcer lower limb (691140795) Non-pressure chronic ulcer of other part of right foot limited to breakdown of skin (L97.511) Active confirmed Problem Acquired hammer toe of right foot (0859167255618453 ) Other hammer toe(s) (acquired), right foot (M20.41) Active confirmed Problem Acquired hammer toe of left foot (8129150183021877 ) Other hammer toe(s) (acquired), left foot (M20.42) Active confirmed Problem Pressure injury of right foot stage I (disorder) (953141041504492) Pressure injury of right foot, stage 1 (L89.891) Active confirmed Response to treatment - Improvement Vital Signs Blood pressure diastolic 56 mm Hg 09/21/2024 Height 5ft8in in 09/21/2024 Blood pressure systolic 172 mm Hg 09/21/2024 Weight 265 lbs 09/21/2024 BMI 40.29 kg/m2 09/21/2024 Procedures Procedure Date Ordered Date Performed Result Body Sit e 04978-VPSSQXX NAIL, 6 OR MORE 02/24/2024 N/A 97228-XZHLSRJ NAIL, OR MORE 06/15/2024 N/A 20160-Oadxnmxh Plate 06/15/2024 N/A 50972- Debride <25 sq cm 06/15/2024 N/A 73750-ZONFKSE NAIL, 6 OR MORE 09/21/2024 N/A 91309-Ucwoduza Plate 09/21/2024 N/A 31702- Debride <25 sq cm 09/21/2024 N/A Encounters Encounter Location Date Provider Diagnosis [address] [address] 02/24/2024 Katharina Black Tinea unguium B35.1 ; Pain in right toe(s) M79.674 and Pain in left toe(s) M79.[address] [address] 06/15/2024 Katharina Black Tinea unguium B35.1 ; Pressure injury of right foot, stage 1 L89.891 ; Pain in right toe(s) M79.674 ; Pain in left toe(s) M79.675 and Ingrown nail L60.[address] [address] 09/21/2024 Katharina Black Pressure injury of right [...] Treatment Pending Test Test Name Order Date 99324-IKIHMXP NAIL, 6 OR MORE 08/07/2021 85406-MEUKTJO NAIL, 6 OR MORE 12/11/2021 37066-WDFNOTC NAIL, 6 OR MORE 04/16/2022 92403-ITVVBYK NAIL, 6 OR MORE 08/20/2022 63670-PWCOWST NAIL, 6 OR MORE 12/31/2022 43976-PSPIECV NAIL, 6 OR MORE 05/06/2023 00953-ZDGVKWA NAIL, 6 OR MORE 11/14/2023 98349-UCUZQML NAIL, 6 OR MORE 02/24/2024 27888-PNHPTHL NAIL, 6 OR MORE 06/15/2024 95257-KNGFDHH NAIL, 6 OR MORE 09/21/2024 61258-Ekacwjzr Plate 09/21/2024 33748-Knenawol Plate 05/06/2023 23331-Llwevoxw Plate 06/15/2024 99034-Srytdqta Plate 12/31/2022 62329- Debride <25 sq cm 12/11/2021 02616- Debride <25 sq cm 05/06/2023 31092- Debride <25 sq cm 12/31/2022 74722- Debride <25 sq cm 08/20/2022 25813- Debride <25 sq cm 04/16/2022 17130- Debride <25 sq cm 09/04/2021 57874- Debride <25 sq cm 04/16/2018 00418- Debride <25 sq cm 05/25/2021 86106- Debride <25 sq cm 08/07/2021 69655- Debride <25 sq cm 09/21/2024 66993- Debride <25 sq cm 06/15/2024 64553,I8357-MOM TENDON SHEATH/LIGAMENT 1 10/07/2020 63483,O7685-MRO TENDON SHEATH/LIGAMENT 0 05/25/2021 41462,D0571-JSS TENDON SHEATH/LIGAMENT 1 11/04/2020 Next Appt Details Provider Name:Katharina De La Rosa , 02/03/2025 01:30:00 PM, [address] [place] [address], [place], [address], Insurance Providers Payer Name Payer Address Payer Phone Subscriber Number Group Number Insured Name Patient Relationship to Insured Coverage Start Date Coverage End Date [facility] ([facility] [address] [place] [address] [phone] [id number] [facility] Radha Blandon Self - patient is the insured Medical (General) History Medical History History ICD Code Anemia Anxiety disorder Arthritis Back,Hip,and Knee pain Chicken pox High blood pressure Kidney stones Measles Mumps Broken bones Sciatica A fib Surgical History Surgery Date(Month/Year) Lithotripsy 2019 eye surgery, lenses 09/28 Hospitalization History Reason Date(Month/Year) [facility] [place]- rapid heart rate 10/11/23
--- OUTSIDE RECORDS SUMMARY | 2025-01-11 12:52 | XMS_ITS ---
Author Organization [facility] Address [address] [place] [address] Care Team Providers Care Field Crop Grower Name Role Phone Viola Mack MD Primary Care Provider Unavaila ble Black, Katharina Unavailable [phone] Allergies Allergen (clinical drug ingredient) Drug/Non Drug [...] injury of right foot stage I (disorder) (76062857822 4102) Pressure injury of right foot, stage 1 (L89.891) Active confirmed Response to treatment - Improvement Vital Signs Height 5ft 8in in 06/15/2024 Weight 265 lbs 06/15/2024 BMI 40.29 kg/m2 06/15/2024 Blood pressure systolic 148 mm Hg 06/15/20 24 Blood pressure diastolic 54 mm Hg 024 Procedures Procedure Date Ordered Date Performed Result Body Sit e 12369-RRFOTHW NAIL, 6 OR MORE 06/15/2024 N/A 13455-Ycopurja Plate 06/15/2024 N/A 40332- Debride <25 sq cm 06/15/2024 N/A Encounters Encounter Location Date Provider Diagnosis [facility] [place] [address] [place] [address] 06/15/2024 Katharina Black Tinea unguium B35.1 ; [...] INSTRUCTIONS.pdf) Pending Test Test Name Order Date 67474-DYHPPZD NAIL, 6 OR MORE 06/15/2024 77565-Nujqhzrc Plate 06/15/2024 72305- Debride <25 sq cm 06/15/2024 Next Appt Details Follow Up: 6 Weeks, Reason: Provider Name:Katharina De La Rosa , 02/03/2025 01:30:00 PM, [address] [facility], [place], [address], Procedure Notes * Category Sub-Category Detail Notes [...] Motrin was recommended for pain or discomfort (80760) , Pt DEFERS matricectomy Anesthesia was accomplished [...] as necessary. Patient chooses, no pharmaceutical tx (27075) Debride skin< 25 sq cm Open wound [...] of the wound post debridement is stable (08209) Progress Notes * CHAOJENNRadha GUSTAFSON EDOB: (73 yo F)Acc No.[id number]:06/15/2024 Progress Note Patient:?Radha Blandon Provider:?Katharina De La Rosa DPM :1950???Age:73 Y???Sex:Female D ate:06/15/2024 Address:[address] [place], [place] [id number] Pcp:Viola Mack MD Subjective: * Chief Complaints: * ???Painful nail(s) aggrevate d by shoes causing difficulty standing/walkingOpen soreIngrown Nail * HPI: ???Painful Nails:?Pt States Last PCP Visit:?Date:?03/03/2024 ???Skin problems:?Treatments:?none.? * Medical History:? * Surgical History:?Lithotrips y 2019eye surgery, lenses 09/28 * Hospitalization/Major Diagno stic Procedure:?[facility] [place] rapid heart rate 10/11/23 [...] - L60.0? Plan: * Treatment: 2.?Tinea unguium?Procedure: 32530-VKYLBYB NAIL, 6 OR MORE 3.?Ingrown nail?Procedure: 39601-Xaocadhv Plate * Procedures:?Debride Nail 6-10:?Nail debridement?Nail debridement performed extensively to reduce/remove overall nail length, girth, thickness, subungual debris, and necrotic tissue, by manual and electrical means through the use of a nail nipper and/or dremel, to more viable healthy nail plate or bed tissue 1-5. Silver nitrate used for any petechial bleeding as necessary. Patient chooses, no pharmaceutical tx (23159).?Debride skin< 25 sq cm:?Open wound?Physician of record [...] of the wound post debridement is stable (22854).?Nail Avulsion:?Location?Lateral nail border , TA.?Anesthesia?was accomplished TOPICALLY [...] Motrin was recommended for pain or discomfort (03339) , Pt DEFERS matricectomy.? * Procedure Codes:?20247 DEBRI DE NAIL, 6 OR MORE, Modifiers: XS 23752 Avulsion Plate, [place]: [place] [address] ACTIVE WOUND CARE/20 CM OR <, Modifiers: [...] DPM Date:?2023 Generated for William ingram/Kaity/Javi on:?01/11/2025 12:52 PM EDT History and Physical Notes * [...]
== END 2025-01-11 13:31 | disposition home or self-care (01) ==
LOC: HO.HMCC 10:48
PROVIDERS: PCP Internal Medicine; Visit Provider Internal Medicine
DX: I12.9 Hypertensive chronic kidney disease with stage 1 through stage 4 chronic kidney disease, or unspecified chronic kidney disease (principal); N18.30 Chronic kidney disease, stage 3 unspecified; E66.01 Morbid (severe) obesity due to excess calories; Z68.41 Body mass index [BMI] 40.0-44.9, adult; I48.91 Unspecified atrial fibrillation

== ENCOUNTER → 2025-01-11 10:47 | Outpatient (BNVA) | payer OTHER, SELFPAY | PROVIDERS: PCP Internal Medicine; Visit Provider Internal Medicine | DX: Z13.89 Encounter for screening for other disorder (principal) ==

== ENCOUNTER 2025-01-27 11:16 | Outpatient (REF) | payer OTHER, SELFPAY ==
[2025-01-27 13:23] LABS: MANUAL DIFF FLAG NO
--- OUTSIDE RECORDS SUMMARY | 2025-01-27 13:38 | XMS_ITS ---
Author Organization [facility] Address [address] [place] [address] Care Team Providers Care Environmental Health Aide Name Role Phone Viola Mack MD Primary Care Provider Unavaila ble Black, Katharina Unavailable [phone] Allergies Allergen (clinical drug ingredient) Drug/Non Drug [...] Ordered Date Performed Result Body Sit e 26701-RVMHBUF NAIL, 6 OR MORE 09/21/2024 N/A 75863-Sfmhdvfn Plate 09/21/2024 N/A 35084- Debride <25 sq cm 09/21/2024 N/A Encounters Encounter Location Date Provider Diagnosis [facility] [place] [address] [place] [address] 09/21/2024 Katharina Black Pressure injury of right [...] INSTRUCTIONS.pdf) Pending Test Test Name Order Date 57705-AJYPXEO NAIL, 6 OR MORE 09/21/2024 32683-Xztwchrx Plate 09/21/2024 82478- Debride <25 sq cm 09/21/2024 Next Appt Details Follow Up: 2 Weeks,prn, Reas on: Provider Name:Katharina Beard Rj , 02/03/2025 01:30:00 PM, [address] [facility], [place], [address], Procedure Notes * Category Sub-Category Detail Notes [...] Motrin was recommended for pain or discomfort (07076) , Pt DEFERS matricectomy , Anesthesia was [...] use of a nail nipper and/or dremel-type turbinated bone grinder, to a more viable healthy nail [...] to maintain effectiveness in symptomatic relief - 63770 Debride skin< 25 sq cm Open wound [...] of the wound post debridement is stable (31499) Progress Notes * Radha BLANDON EDOB: (74 yo F)Acc No.[id number]:09/21/2024 Progress Note Patient:Radha PADILLA Provider:?Katharina De La Rosa DPM :1950???Age:74 Y???Sex:Female D ate:09/21/2024 Address:[address] [place] [address] [place] Pcp:Viola Mack MD Subjective: * Chief Complaints: [...] surgery, lenses 09/28 * Hospitalization/Major Diagno stic Procedure:[place] [place] 10/11/23 * Family History:?Mother: [...] 2.?Pressure injury of right foot, stage 1?Procedure: 03762- Debride <25 sq cm Notes: Patient Educated with: WOUND CARE INSTRUCTIONS.pdf (WOUND CARE INSTRUCTIONS.pdf)?? 3.?Tinea unguium?Procedure: 82756-KPBGPDY NAIL, 6 OR MORE 4.?Ingrown nail?Procedure: 75469-Flusunkr Plate * Procedures:?Debride Nail 6-10:?Nail debridement?Due to [...] of a nail nipper and/or dremel- type turbinated bone grinder, to a more viable healthy nail [...] to maintain effectiveness in symptomatic relief - 40902.?Debride skin< 25 sq cm:?Open wound?Physician of record [...] of the wound post debridement is stable (26705).?Nail Avulsion:?Location?Lateral nail border , T5.?Anesthesia?was accomplished TOPICALLY [...] Motrin was recommended for pain or discomfort (79299) , Pt DEFERS matricectomy ,.? * Procedure Codes:?66841 DEBRI DE NAIL, 6 OR MORE, Modifiers: XS 74377 Avulsion Plate, Modifiers: T5 60871 ACTIVE WOUND CARE/20 CM OR <, Modifiers: [...] Rosa DPM Date:?2023 Generated for William ingram/Kaity/Javi on:?01/27/2025 01:38 PM EDT History and Physical Notes * [...]
--- OUTSIDE RECORDS SUMMARY | 2025-01-27 13:38 | XMS_ITS ---
Author Organization [facility] Address [address] [place] [address] Care Team Providers Care Comp Field Case Manager Name Role Phone Viola Mack MD Primary Care Provider Unavaila Katharina Lawrence Unavailable [phone] Saha Encounters Encounter Location Date Provider Diagnosis [facility] [address] [place] [address] 12/28/2024 Katharina De La Rosa Plan Of Treatment Next Appt Details Provider Name:Katharina A Rj , 02/03/2025 01:30:00 PM, [address] [facility], [place], [address], Progress Notes * Radha BLANDON EDOB: (74 yo F)Acc No.[id number]:12/28/2024 Progress Note Patient:?Radha BLANDON Provider:?Katharina De La Rosa DPM :1950???Age:74 Y???Sex:Female D ate:12/28/2024 Address:[place] [place] Pcp:Viola Mack MD Subjective: * Chief Complaints: [...] Rosa DPM Date:?2024 Generated for William ingram/Kaity/Javi on:?01/27/2025 01:38 PM EDT
--- OUTSIDE RECORDS SUMMARY | 2025-01-27 13:39 | XMS_ITS | Clinical Summary ---
Author Organization [facility] Address [address] [place] [address] Phone Care Team Providers Care Aesthetics Instructor Name Role Phone Viola Mack MD Primary Care Provider [phone] Allergies Active Allergy Reactions Criticality Noted Date [...] time each day 30 tablet 11 01/21/2024 01/21/20 25 Active Problems Problem Noted Date Diagnosed Date Hypertension 07/22/2023 Localized edema 07/22/2023 Personal history of kidney stones 07/22/2023 Stage 3a chronic kidney disease 01/22/2023 Encounters Date Type Department Care Team Description 01/25/2025 Orders Only [facility] [address] [address] Justin Espitia MD Stage 3a chronic kidney disease (HCC); Personal history of kidney stones; Localized edema; Hypertension from Last 3 Months Family History Medical History Relation Comments Hypertension [...] Office Visit [facility] [address] [phone] Justin Espitia MD [address] [address] Health Maintenance Due Date Last Done Comments Breast Cancer Screening 1950 Pneumococcal Vaccine: 50+ Ye ars (1 of 2 - PCV) 1970 Colorectal Cancer Screening: Annual FOBT 2000 Colorectal Cancer Screening: Colonoscopy 2000 Colorectal Cancer Screening: Sigmoidoscopy 2000 Influenza Vaccine (Season Ended) 2025 Hepatitis B Vaccine Aged Out No longe r eligible based on patient's age to complete this topic Insurance [facility] Care Teams Aesthetics Instructor Relationship Specialty Start Date End Date Viola Mack MD [address] [place] [address] PCP - General Internal Medicine 08/21/22
--- OUTSIDE RECORDS SUMMARY | 2025-01-27 13:39 | XMS_ITS ---
Author Organization [facility] Address [address] [place] [address] Care Team Providers Care Ski Topper Name Role Phone Viola Mack MD Primary Care Provider Unavaila ble Black, Katharina Unavailable [phone] Allergies Allergen (clinical drug ingredient) Drug/Non Drug [...] injury of right foot stage I (disorder) (25556360395 4102) Pressure injury of right foot, stage 1 (L89.891) Active confirmed Response to treatment - Improvement Vital Signs Height 5ft 8in in 06/15/2024 Weight 265 lbs 06/15/2024 BMI 40.29 kg/m2 06/15/2024 Blood pressure systolic 148 mm Hg 06/15/20 24 Blood pressure diastolic 54 mm Hg 024 Procedures Procedure Date Ordered Date Performed Result Body Sit e 75643-SSCKLRB NAIL, 6 OR MORE 06/15/2024 N/A 81883-Fyuqimdm Plate 06/15/2024 N/A 04197- Debride <25 sq cm 06/15/2024 N/A Encounters Encounter Location Date Provider Diagnosis [facility] [place] [address] [place] [address] 06/15/2024 Katharina Black Tinea unguium B35.1 ; [...] INSTRUCTIONS.pdf) Pending Test Test Name Order Date 66761-OIFIBIP NAIL, 6 OR MORE 06/15/2024 45933-Nmcckbzs Plate 06/15/2024 41875- Debride <25 sq cm 06/15/2024 Next Appt Details Follow Up: 6 Weeks, Reason: Provider Name:Katharina De La Rosa , 02/03/2025 01:30:00 PM, [address] [facility], [place], [address], Procedure Notes * Category Sub-Category Detail Notes [...] Motrin was recommended for pain or discomfort (49907) , Pt DEFERS matricectomy Anesthesia was accomplished [...] as necessary. Patient chooses, no pharmaceutical tx (82806) Debride skin< 25 sq cm Open wound [...] of the wound post debridement is stable (25163) Progress Notes * CHAOJENNRadha GUSTAFSON EDOB: (73 yo F)Acc No.[id number]:06/15/2024 Progress Note Patient:?Radha Blandon Provider:?Katharina De La Rosa DPM :1950???Age:73 Y???Sex:Female D ate:06/15/2024 Address:[address] [place], [place] [phone] Pcp:Viola Mack MD Subjective: * Chief Complaints: * ???Painful nail(s) aggrevate d by shoes causing difficulty standing/walkingOpen soreIngrown Nail * HPI: ???Painful Nails:?Pt States Last PCP Visit:?Date:?03/03/2024 ???Skin problems:?Treatments:?none.? * Medical History:? * Surgical History:?Lithotrips y 2019eye surgery, lenses 09/28 * Hospitalization/Major Diagno stic Procedure:[place] [place] 10/11/23 * Family History:?Mother: [...] - L60.0? Plan: * Treatment: 2.?Tinea unguium?Procedure: 52445-TMHTSES NAIL, 6 OR MORE 3.?Ingrown nail?Procedure: 18251-Pbpuvckx Plate * Procedures:?Debride Nail 6-10:?Nail debridement?Nail debridement performed extensively to reduce/remove overall nail length, girth, thickness, subungual debris, and necrotic tissue, by manual and electrical means through the use of a nail nipper and/or dremel, to more viable healthy nail plate or bed tissue 1-5. Silver nitrate used for any petechial bleeding as necessary. Patient chooses, no pharmaceutical tx (83807).?Debride skin< 25 sq cm:?Open wound?Physician of record [...] of the wound post debridement is stable (13748).?Nail Avulsion:?Location?Lateral nail border , TA.?Anesthesia?was accomplished TOPICALLY [...] Motrin was recommended for pain or discomfort (56233) , Pt DEFERS matricectomy.? * Procedure Codes:?44402 DEBRI DE NAIL, 6 OR MORE, Modifiers: XS 14695 Avulsion Plate, [place]: [place] [address] ACTIVE WOUND CARE/20 CM OR <, Modifiers: [...] DPM Date:?2023 Generated for William ingram/Kaity/Javi on:?01/27/2025 01:39 PM EDT History and Physical Notes * [...]
--- OUTSIDE RECORDS SUMMARY | 2025-01-27 13:39 | XMS_ITS | Encounter Summary ---
Author Organization [facility] Address [address] [address] Phone Care Team Providers Care Radio Station Audio Engineer Name Role Phone Viola Mack MD Primary Care Provider [phone] Encounter Details Date Type Department Care Team (Late Contact Info) Description 01/25/2025 Orders Only [facility]. [address] [phone] Justin Espitia MD [address] [address] Stage 3a chronic kidney disease (HCC); Personal history of kidney stones; Localized edema; Hypertension Social History Tobacco Use Types Packs/Day Years [...] Orientation Straight 07/20/2024 10 :25 PM EDT documented as of this encounter Plan of Treatment Upcoming Encounters Date Type Department Care Team (Late Contact Info) Description 02/04/2025 10:00 AM EDT Office Visit [facility]. [address] [phone] Justin Espitia MD [address] [phone] documented as of this encounter Visit Diagnoses Diagnosis Stage 3a chronic kidney disease (HCC) Personal history of kidney stones Localized edema Hypertension documented in this encounter Care Teams Radio Station Audio Engineer Relationship Specialty Start Date End Date Viola Mack MD [address] [place] [address] PCP - General Internal Medicine 08/21/22 documented as of this encounter
--- OUTSIDE RECORDS SUMMARY | 2025-01-27 13:39 | XMS_ITS | Data Portability ---
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 Plan of Treatment Reminders Order Date Submit Date Provider Last Modified By Organization Details Last Modified Time Details Appointments INJECTION ONLY 2024 10:45A M Mary Lawe tte, PA-C Not available Not available Not available INJECTION ONLY 15 2024 10:30A M Mary Lawe tte, PA-C Not available Not available Not available INJECTION ONLY 15 2024 10:45A M Mary Mendoza tte, PA-C Not available Not available Not available RECHECK 2024 10:30A M Narda Revord, PA-C Not available Not available Not available RECHECK 2024 02:15P M Narda Revord, PA-C Not available Not available Not available Lab None recorded. Referral None recorded. Procedures None recorded. Surgeries None recorded. Imaging XR, shoulder, 2 or more view - 320 rt 2024 025 [email or web address] [facility], [address], [address], [place], [address], 12/04/2024 12:55:21 MRI, shoulder, w/o contrast - eval for rotator cuff 2024 025 JACKSON [facility] [place], [address], [address], [place], [address], 12/22/2024 11:32:09 Medication Orders None recorded. Patient TargetsNo targets recorded. Patient InstructionsNo instructions recorded. Reason for Referral None Reported. Results Created Date Observation Date Name Description Value Unit Range Abnormal Flag Note LastModifiedBy Organization Detail LastModifiedTime 12/03/19 25 12/03/2024 XR, shoul lauro, 2 or more view [email or web address]:/ [email or web address] ?Encry pted=s hAaTro YD8dLq bEUv6g %2BXZw aYqtaq 0bqfl% 2Fg9IQ a4ajBk vP9nXo QUaueC m3YtLR FvZlgJ JJ8mAn HZtai3 0d9710 AC0Kqb XiEVaq mKiQtr MwF INTERFACE [facility] [address] [facility] [address], [place], [address], 12/03/2024 13:36:13 12/03/19 25 12/03/2024 XR, shoul lauro, 2 or more view [email or web address] ?Encry pted=s hAaTro YD8dLq bEUv6g %2BXZw aYqtaq 0bqfl% 2Fg9IQ a4ajBk vP9nXo QUaueC m3YtLR FvZlgJ JJ8mAn HZtai3 5v9424 AC0Kqb XiEVaq mKiQtr MwF INTERFACE [facility] [facility] [address] [facility] [address], [place], [address], 12/03/2024 13:36:14 12/23/19 25 12/21/2024 MRI, arian lauro, w/o contr ast No observ ation record ed. [email or web address] [facility] [place] [address] [facility] [address], [place], [address], 12/22/2024 15:00:27 Result Notes None recorded. Problems Name Problem SNOMED Code Status Onset Date Resolution Date Notes Provider Name and Address Organization Details Recorded Time Primary gonarthrosi s, bilateral 003807204 Active 2023 DEVANTE chin, [place] - [facility] 4 10:34:00 Osteoarthri tis of left knee joint 2824246450181 09 Active 2024 Narda Soriano PA-C [address], [place], [place], [address], [facility] 5 19:37:31 Localized, primary osteoarthri tis of the shoulder region 346523083 Active 2023 aNrda Soriano PA-C [address], [place], [address], [facility] 4 10:24:07 Impingement syndrome of right shoulder region 6251448730363 02 Active 2023 Narda Soriano PA-C [address], [place], [address], [facility] 4 10:24:09 Pain of right knee joint 0208351902468 00 Active 2023 RODOLFO chin, [place] - [facility] 4 09:29:53 Osteoarthri tis of right knee joint 7513929028489 00 Active 2023 Garry Martin PA-C [address], [place], [address], [facility] 4 10:09:29 Bilateral osteoarthri tis of knees 9497359182242 07 Active 2023 Garry Martin PA-C [address], [place], [address], [facility] 4 09:17:33 Problem Notes None recorded. Procedures Surgical History Date Name Laterality Status Provider Name and Address Organization Details Recorded Time 5 Sports Shoulder completed Narda Soriano PA-C [address], [place], [address], [facility] 01/14/2025 14:19:27 5 Knee Kenalog 40 1cc Injection, Bilateral completed Narda Revord, PA-C [address], [place], [address], [facility] 12/13/2024 19:38:08 5 Sports Shoulder completed Narda Revord, PA-C [address], [place], [address], [facility] 10/15/2024 13:19:53 4 Knee Kenalog 40 1cc Injection, Bilateral completed Narda Revord, PA-C [address], [place], [address], [facility] 09/12/2024 10:34:44 4 Sports Shoulder completed Narda Revord, PA-C [address], [place], [address], [facility] 07/13/2024 21:38:39 4 Knee Kenalog 40 1cc Injection, Bilateral completed Narda Revord, PA-C [address], [place], [address], [facility] 06/16/2024 13:21:02 4 Euflexxa Knee Injection Nirmal completed Narda Revord, PA-C [address], [place], [address], [facility] 04/27/2024 18:02:29 4 Euflexxa Knee Injection Nirmal completed Narda Revord, PA-C [address], [place], [address], [facility] 04/23/2024 11:58:09 4 Sports Shoulder completed Narda Revord, PA-C [address], [place], [address], [facility] 04/13/2024 19:00:56 4 Euflexxa Knee Injection Nirmal completed Narda Revord, PA-C [address], [place], [address], [facility] 04/14/2024 16:13:26 4 Sports Shoulder completed Narda Soriano PA-C [address], [place], [address], [facility] 01/12/2024 10:23:36 4 JZKNEE INJ completed Garry Martin PA-C [address], [place], [address], [facility] 01/15/2024 10:09:23 Other completed Yaima Seaman [facility] 07/14/2024 11:11:46 Imaging Results Imaging Date Name Status LastModified by Organiz ation Details LastModified Time 12/03/2024 XR, shoulder, 2 or more view completed INTERFACE [facility] [address], [place], [address], 12/03/2024 13:36:13 12/03/2024 XR, shoulder, 2 or more view completed INTERFACE [facility] [address], [place], [address], 12/03/2024 13:36:14 12/21/2024 MRI, shoulder, w/o contrast completed [email or web address] [facility] [place] [address] [facility] [address], [place], [address], 12/22/2024 15:00:27 Procedure Notes None recorded. Medical Equipment None Reported. Allergies Allergen ID Allergen Name Allergen Category Reaction Reaction Severity Criticality Documentation Date Start Date Code Code System Note Provider Name and Address Organization Details Recorded Time 654412 prednison e medicatio n Not available Not available Not available 10/15/2024 8640 RxNorm Adelaide chin [facility] 13:01:48 87349 erythromy omar medicatio n Not available Not available Not available 12/09/20232022 4053 RxNorm Not Available [facility] 12:44:49 Medications Name Sig Start Date Stop Date Status Note LastModified by Organization Details LastModified Time Prescript ion - Prior Authoriza tion Request active Prior auth request Not Available Not Available Not Available Saline Mist 0.65 % nasal spray aerosol INSTILL 2 SPRAYS INTO EACH NOSTRIL 4 TIMES A DAY NEEDED FOR DRY NASAL PASSAGES FOR 7 DAYS 01/14 completed Not Available Not Available Not Available tizanidin e 2 mg tablet TAKE 1 TABLET BY MOUTH EVERY 6 HOURS NEEDED active Not Available Not Available No t Available fluconazo le 150 mg tablet TAKE 1 TABLET BY MOUTH EVERY 3 DAYS FOR 2 DOSES. active Not Available Not Available No t Available metoprolo l succinate ER 50 mg tablet,ex tended release 24 hr TAKE 1 TABLET BY MOUTH EVERY DAY 01/14 completed Not Available Not Available Not Available lisinopri l 20 mg tablet TAKE 1 TABLET BY MOUTH DAILY active Not Available Not Available No t Available prednison e 20 mg tablet TAKE 1 TABLET BY MOUTH TWICE A DAY FOR 3 DAYS 01/14 completed Not Available Not Available Not Available atenolol 25 mg tablet 07/09 completed Not Available Not Available Not Available amlodipin e 2.5 mg tablet TAKE 1 TABLET BY MOUTH DAILY active Not Available Not Available No t Available amlodipin e 5 mg tablet TAKE 1 TABLET BY MOUTH DAILY active Not Available Not Available No t Available spironola ctone 25 mg tablet TAKE 1 TABLET BY MOUTH [...] Not Available Not Available No t Available ciproflox acin 0.3 % eye drops INSTILL 1 DROP IN LEFT EYE 4 TIMES A DAY DIRECTED 01/14 completed Not Available Not Available Not Available cephalexi n 500 mg capsule TAKE 1 CAPSULE BY MOUTH TWICE A DAY FOR 10 DAYS 10/15 completed Not Available Not Available Not Available lisinopri l 10 mg tablet TAKE 1 TABLET BY MOUTH DAILY active Not Available Not Available No t Available furosemid e 20 mg tablet TAKE 1 TABLET BY MOUTH EVERY OTHER DAY active Not Available Not Available No t Available methylpre dnisolone 4 mg tablets in a dose pack TAKE 6 TABLETS ON DAY 1 DIRECTED ON PACKAGE AND DECREASE BY 1 TAB EACH DAY FOR A TOTAL OF 6 DAYS 01/14 completed Not Available Not Available Not Available ketoconaz ole 2 % topical cream APPLY TOPICALL Y ONCE DAILY 01/14 completed Not Available Not Available Not Available doxycycli ne hyclate 100 mg tablet TAKE 1 TABLET BY MOUTH TWICE A DAY FOR 10 DAYS 02/25 completed Not Available Not Available Not Available atenolol 50 mg tablet TAKE 1 TAB (50 MG) ORALLY DAILY active Not Available Not Available No t Available amoxicill in 875 mg-potass ium clavulana te 125 mg tablet TAKE 1 TABLET BY MOUTH TWICE A DAY active Not Available Not Available No t Available tobramyci n 0.3 %-dexamet hasone 0.1 % eye drops,sharad pension INSTILL 1 DROP INTO RIGHT EYE TWICE A DAY FOR 7 DAYS 01/14 completed Not Available Not Available Not Available Euflexxa 10 mg/mL (mw 2.4-3.6 million) intra-art icular syringe 2023 active Not Available Not Available Not Avai lable GaviLyte- G 236 gram-22.7 4 gram-6.74 gram-5.86 gram oral solution PLEASE SEE ATTACHED FOR DETAILED DIRECTIO NS 01/14 completed Not Available Not Available Not Available Eliquis 5 mg tablet TAKE 1 TABLET BY MOUTH TWICE A DAY active Not Available Not Available No t Available Farxiga 5 mg tablet TAKE 1 TABLET BY MOUTH DIALY 01/14 completed Not Available Not Available Not Available Zilretta 32 mg intra-art icular suspensio n,extende d release active Not Available Not Available No t Available Flowflex COVID-19 Antigen Home Test kit FOLLOW INSTRUCT IONS INCLUDED WITH THE PACKAGE. 01/14 completed Not Available Not Available Not Available Vitals Date Recorded Body height Body mass index (BMI) Body weight Provider Name and Address Organization Details Last Updated DateTime 09/12/2024 170.18 cm 42.1 kg/m2 196199.35 g DEVANTE ECHAVARRIA [facility] 09/12/2024 10:18:36 Date Recorded Body height Body mass index (BMI) Body weight Provider Name and Address Organization Details Last Updated DateTime 10/15/2024 170.18 cm 46.4 kg/m2 234710.34 g Adelaide Pandey [facility] 10/15/2024 13:01:33 Date Recorded Body height Provider Name an d Address Organization Details Last Updated DateTime 12/03/2024 170.18 cm NASIR SALEH [facility] 12/03/2024 13:06:29 Date Recorded Body height Body mass index (BMI) Body weight Provider Name and Address Organization Details Last Updated DateTime 12/14/2024 170.18 cm 46.4 kg/m2 687625.34 g Narda Soriano PA-C [address] [facility] [address], [address], [facility] 12/14/2024 10:49:50 Date Recorded Body height Body mass index (BMI) Body weight Provider Name and Address Organization Details Last Updated DateTime 01/14/2025 170.18 cm 46.4 kg/m2 205959.34 g Yaima Adames [facility] 01/14/2025 13:45:39 Social History Question Answer Notes LastModified by Organizat ion Details LastModified Time Tobacco Smoking Status [facility] 07/14/2024 11:11:46 Do You Or Have You Ever Used E-cigarettes Or Vape? Never Used Electronic Cigarettes [email or web address] Information not available 09/12/2024 What Is Your [...] Disease N Heart Trouble Y Heart Attack (MT) N Gastrointestinal Disease N Cholesterol N Diabetes [...] SNOMED-CT Code Diagnosis ICD10 Code Diagnosis Note [id number] MERRITT Mccrary [address] [place] [address] 01/17/2024 12:36:10 02/07/2024 12:58:14 Impingement syndrome of right shoulder region 7490553822 07009 M75.41 PLANThe patient has done well with conservati ve management in regards to the shoulder with good clinical response to injections in the past. Recommend continued conservati ve management with repeat injection( s) today. Moderating activities with the upper extremity recommende d also. See procedure notes for injection details. Localized, primary osteoarthritis of the shoulder region 880997674 M19.996 [id number] Garry Martin [place] [address] 01/15/2024 09:18:18 01/15/2024 10:16:55 Pain of right knee joint 5385535400 70747 M25.561 Osteoarthr itis of right knee joint 3876990088 19261 M17.11 [id number] MERRITT Pope [address] [place] [address] 02/26/2024 08:50:27 03/20/2024 08:40:55 Bilateral osteoarthritis of knees 0763722698 42969 M17.0 [id number] MERRITT Mccrary [address] [place] [address] 04/14/2024 12:48:04 05/12/2024 11:48:08 Impingement syndrome of right shoulder region 3584931242 84291 M75.41 PLANThe patient has done well with conservati ve management in regards to the shoulder with good clinical response to injections in the past. Recommend continued conservati ve management with repeat injection( s) today. Moderating activities with the upper extremity recommende d also. See procedure notes for injection details. Bilateral osteoarthritis of knees 2699424962 65055 M17.0 Performed Euflexxa series injections #1 today. She will return for her following 2 injections . Our office will contact her to schedule these. [id number] Narda Soriano PA-C [facility] [address] [place] [address] 04/23/2024 13:46:09 05/18/2024 12:25:48 Bilateral osteoarthritis of knees 3179794913 40522 M17.0 Performed Euflexxa series injections #2 today. She will return in 1 week for her final injections . [id number] MERRITT Mccrary [address] [place], [place] [address] 04/28/2024 10:11:14 05/21/2024 15:09:42 Bilateral osteoarthritis of knees 0612552423 89360 M17.0 [id number] MERRITT M[facility] [address] [place] [address] 06/19/2024 13:44:44 07/10/2024 14:37:31 Bilateral osteoarthritis of knees 7983114299 62283 M17.0 Nature of the diagnosis discussed with [...] questions and concerns were addressed and answered. [id number] MERRITT Mccrary [address] [place] [address] 07/14/2024 10:58:59 08/07/2024 15:59:53 Impingement syndrome of right shoulder region 4601841914 04126 M75.41 PLANThe patient has done well with conservati ve management in regards to the shoulder with good clinical response to injections in the past. Recommend continued conservati ve management with repeat injection( s) today. Moderating activities with the upper extremity recommende d also. See procedure notes for injection details. [id number] MERRITT Mccrary [address] [place] [address] 09/12/2024 10:01:24 10/09/2024 08:08:07 Primary gonarthrosis, bilateral 653391544 M17.0 Nature of the diagnosis discussed with [...] management options versus total joint arthroplas ty. [id number] MERRITT Mccrary 3[address] [place] [address] 10/15/2024 12:32:10 10/28/2024 09:22:41 Impingement syndrome of right shoulder region 4612863853 03666 M75.41 PLANThe patient has done well with conservati ve management in regards to the shoulder with good clinical response to injections in the past. Recommend continued conservati ve management with repeat injection( s) today. Moderating activities with the upper extremity recommende d also. See procedure notes for injection details. [id number] MERRITT Mccrary - [place] [address] [place] [address] 12/03/2024 12:49:12 12/21/2024 13:30:53 Impingement syndrome of right shoulder region 6195522506 89861 M75.41 Carmenlissa teran has recieved multiple cortisone injections with waning response. She continues to experience difficulty and weakness with ROM of the right shoulder. She has failed conservati ve treatment efforts including injections , activity modificati ons and home exercise program and therefore recommend MRI to evaluate for rotator cuff tear. Follow up in 4 weeks for MRI review. Reviewed with Radha that she has a massive subacromia l spur and type III hooked acromion which is digging into her rotator cuff and could be causing irritation versus cuff tear. Will obtain the MRI to further evaluate this and discuss next steps in treatment options at her follow-up appointsonny teran in January. All questions and concerns were addressed and answered. [id number] MERRITT Mccrary [address] [place] [address] 12/14/2024 10:09:25 12/30/2024 09:55:33 Bilateral osteoarthritis of knees 2967040995 30811 M17.0 Nature of the diagnosis discussed with [...] management options versus total joint arthroplas ty. [id number] MERRITT Mccrary 3[address] [place], [place] [address] 01/14/2025 13:41:04 01/14/2025 14:20:56 Impingement syndrome of right shoulder region 1349014648 91817 M75.41 PLANPatilissa teran has recieved multiple cortisone injections with waning response. She continues to experience difficulty and weakness with ROM of the right shoulder. She has failed conservati ve treatment efforts including injections , activity modificati ons and home exercise program. MRI confirms full-thick ness rotator cuff tear with substantia l tendon retraction and fatty atrophy. Therefore reviewed with her that the operative treatment option would likely entail reverse total shoulder replacemen t. Discussed referral to Dr. Asencio for can duration of reverse total shoulder replacemen t versus continued intermitte nt cortisone injections to minimize pain accompanie d by physical therapy to maximize strength and function. Patient elects to continue with nonoperati ve management . She is hoping to avoid operative interventi on. She elects to repeat cortisone injection today. Discussed with her that if her left-sided symptoms do not improve after right shoulder injection with decreased demands to her left shoulder then she should contact our office to make an appointmen t for evaluation of new onset left shoulder pain for further workup. Otherwise follow-up in 3 months for her right shoulder repeat injection as needed. Health Concerns Section Related Observation LastModified by Organization Detai ls LastModified Time None Recorded Concern Status LastModified by Organization Details LastModified Time None Recorded Advance Directives Directive None Recorded Payers Encounter Date Sequence Insurance Name Policy Number Policy Gerard Covered Member ID Gerard Member ID Guarantor Name 09/12/2024 1 [employer]AN (PPO) [id number] Radha Taylor Tawrel [id number] Radha Taylor Tawrel 10/15/2024 1 [employer] IN[employer]ITY PLAN (PPO) [id number] Radha Taylor Tawrel [id number] Radha Taylor Tawrel 12/03/2024 1 [employer] IN[employer]ITY PLAN (PPO) [id number] Radha Taylor Tawrel [id number] Radha Taylor Tawrel 12/14/2024 1 [employer] IN[employer]ITY PLAN (PPO) [id number] Radha Bauermarcela [id number] Radha Bauerzenysulma 01/14/2025 1 [facility] INDEMNITY PLAN (PPO) [id number] Radha Bauermarcela [id number] Radha Blandon Notes Date Note Type Note Provider Name and Address Organization Details Recorded Time 09/12/2024 text/html I am seeing the patient [...] including long-acting cortisone. Narda Soriano PA-C [address], [place], [address], [facility] 09/12/2024 10:35:35 10/15/2024 text/html I am [...] were {{ 07/14/24#}} Narda Soriano PA-C [address], [place], [address], [facility] 10/15/2024 13:21:02 12/03/2024 text/html I am seeing the patient under [...] worst at night. Last injections were {{ 10/15/23#}} DIAGNOSTIC IMAGING: {{4 view* 3 view 2 view}} {{right* left bilate ral}} {{knee hip shoulder* }} radiographs were ordered, obtained and independently reviewed by myself during today's visit at [facility] and demonstrate well-preserved glenohumeral joint space with degenerative changes versus early osteophytes at the superior and inferior glenoid. Large subacromial spur noted on AP views. AC joint space narrowing with type III hooked acromion on outlet view Narda Soriano PA-C [address], [place], [address], [facility] 12/03/2024 14:04:46 12/14/2024 text/html I am seeing the patient under the general supervision of {{Dr. Funes* Dr. Gera Luna}} who was available but who did not see the patient. CC:Acute exacerbation of knee pain HPI:Patient presents today for acute exacerbation of {{Right Left Bilater al*}} knee pain. Is known to have arthritis treated conservatively with intermittent cortisone injections in the past as needed. Reports recent acute exacerbation of symptoms including pain, swelling and difficulty participating in ADL's. No new fall, trauma or injury reported. Last injection(s) were {{ 09/12/24#}} Narda Soriano PA-C [address], [place], [address], [facility] 12/14/2024 11:08:48 01/14/2025 text/html I am seeing the patient under the general supervision of {{Dr. Funes* Dr. Gera Luna}} who was available but who did not see the patient. 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 She presents today for follow-up and MRI review. Unfortunately MRI does confirm full-thickness rotator cuff tear with tendon retraction and early evidence of fatty atrophy. We have been treating with intermittent cortisone injections which are providing waning response. She presents today to discuss further treatment options versus continued injections. Last injection was 10/15/2023. She is reporting that her left shoulder has recently started to bother her localized in a similar distribution pattern about the lateral brachium. DIAGNOSTIC IMAGING: MRI was independently reviewed during today's interview and examination and demonstrates large full-thickness rotator cuff tear with substantial tendon retraction and moderate to severe fatty atrophy. Biceps tendinosis, AC joint arthritis. Narda Soriano PA-C [address] [facility] [address], [place], [address], [facility] [place] [facility] [facility] 01/14/2025 14:20:54 OBGyn Episode No OBEpisode recorded.
--- OUTSIDE RECORDS SUMMARY | 2025-01-27 13:39 | XMS_ITS | Data Portability ---
Author Organization [place] - [facility], Allergy Address [address] [address] Care Team Providers Care Wild Oyster Harvester Name Role Phone SORIN SANDERSANNA Primary Care Provider [phone] Assessment Encounter Date Assessment Date Assessment LastModified [...] call for reevaluation. Otherwise follow-up as needed. [email or web address] Not available 05/06/2024 11:24:19 Plan of Treatment [...] Details Recorded Time Otalgia of left ear 6665720420 Active 2020 Otalgia, left ear; Note: Date Diagnosed : 05/27/2021 2:03 PM (H92.02) Not Available [facility] 4 03:16:49 Bilateral earache 056479409 Active 2022 Otalgia, bilateral ; Note: Date Diagnosed : 06/19/2023 2:26 PM (H92.03) Not Available [facility] 4 03:16:50 Dizziness and giddiness 580195420 Active 2021 Dizziness and giddiness ; Note: Date Diagnosed : 03/27/2022 5:05 PM (R42) Not Available [facility] 4 03:16:49 Allergic rhinitis 68920864 Active 2021 Other allergic rhinitis; Note: Date Diagnosed : 03/27/2022 5:05 PM (J30.89) Not Available [facility] 4 03:16:49 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 Active 2020 Other specified disorders of temporoma ndibular joint; Note: Date Diagnosed : 05/27/2021 2:08 PM (M26.69) Not Available [facility] 4 03:16:50 Posterior rhinorrhe a 23350224 Active 2021 Postnasal drip; Note: Date Diagnosed : 06/27/2022 12:20 PM (R09.82) Not Available [facility] 4 03:16:50 Nasal congestio n 12730066 Active 2021 Nasal congestio n; Note: Date Diagnosed : 03/27/2022 5:05 PM (R09.81) Not Available [facility] 4 03:16:49 Benign paroxysma l positiona l vertigo 313048900 Active 2021 Benign paroxysma l vertigo, unspecifi ed ear; Note: Date Diagnosed : 03/27/2022 5:17 PM (H81.10) Not Available On license of [facility] 4 03:16:50 Arthralgi a of temporoma ndibular joint 78722529 Active 2023 SAMUEL FONG PA-C [address] [place] [address],[place] [address], [facility] [place], [place], [address] , [place] - [facility] 4 11:24:38 Problem Notes None recorded. Procedures Surgical History Date Name Laterality Status Provider Name and Address Organization Details Recorded Time lithotripsy completed Cherry Roberts [place] - [facility] 05/06/2024 10:31:08 Imaging Results Imaging Date Name Status LastModified by [facility] Details LastModified Time 01/05/2022 imaging/diag nostic result completed Information not available 05/27/2024 22:10:30 06/19/2023 imaging/diag nostic result completed Information not available 05/27/2024 22:11:02 Procedure Notes None recorded. Medical Equipment None Reported. Allergies Allergen ID Allergen Name Allergen Category Reaction Reaction Severity Criticality Documentation Date Start Date Code Code System Note Provider Name and Address Organization Details Recorded Time 47091 erythromy omar medicatio n other Not available Not available 02/18/2024 4053 RxNorm React ion: Unkno wn; Not Available On license of [facility] 4 00:48:36 Medications Name Sig Start Date Stop Date Status Note LastModified by Organization Details LastModified Time amoxicill in 500 mg capsule 05/06 completed Medicati on ID: [id number] B rand Name: amoxicil shameka Send Method: E-Prescr ibed Sub s Allowed: subs OK Speci al Instruct ion: TAKE 1 CAPSULE BY MOUTH THREE TIMES A DAY Medi cationGe nericNam e: amoxicil shameka Medi cation ID: [id number] B rand Name: amoxicil shameka Send Method: E-Prescr ibed Sub s Allowed: subs OK Speci al Instruct ion: TAKE 1 CAPSULE BY MOUTH THREE TIMES A DAY Medi cationGe nericNam e: amoxicil shameka Not Available Not Available Not Available gabapenti n 600 mg tablet active Medicati on ID: [id number] B rand Name: gabapent in Send Method: [...] 1 gram tablet active Medicati on ID: [id number] B rand Name: valacycl ovir Sen d Method: E-Prescr ibed Sub s Allowed: subs OK Speci al Instruct ion: TAKE 1 TABLET BY MOUTH 3 TIMES A DAY Medi cationGe nericNam e: valacycl ovir Not Available Not Available Not Available lisinopri l 20 mg tablet active Medicati on ID: [id number] B rand Name: lisinopr il Send Method: [...] 10 mg tablet active Medicati on ID: [id number] B rand Name: amlodipi ne Send Method: [...] % topical ointment active Medicati on ID: [id number] B rand Name: mometaso ne Send Method: [...] as directed 2021 active Medicati on ID: [id number] B rand Name: azelasti ne Send Method: [...] applicato r 05/06 completed Medicati on ID: [id number] B rand Name: hydrocor tisone S end Method: E-Prescr ibed Sub s Allowed: subs OK Speci al Instruct ion: APPLY TOPICALL Y 4 TIMES DAILY NEEDED M tomer nGeneric Name: torsten jeff n ID: [id number] B rand Name: torsten Mccoy end Method: [...] SNOMED-CT Code Diagnosis ICD10 Code Diagnosis Note [id number] LUIS STEEN MD [facility] [address] [address] 05/06/2024 10:20:40 05/06/2024 10:55:09 Bilateral earache 800346178 H92.03 Arthralgia of temporomandibular joint 80756323 M26.629 Health Concerns Section Related Observation LastModified by Organization Detai ls LastModified Time None Recorded Concern Status LastModified by Organization Details LastModified Time None Recorded Advance Directives Directive None Recorded Payers Encounter Date Sequence Insurance Name Policy Number Policy Gerard Covered Member ID Gerard Member ID Guarantor Name 05/06/2024 1 [facility] IN[facility]MN[facility] [id number] Radha Blandon [id number] Radha Blandon Notes Date Note Type Note [...] drainage within the ears. LUIS PALACIO MD [address] [place] [address], [place], [address], [facility] - [facility] 05/06/2024 12:41:25 OBGyn Episode No OBEpisode recorded.
--- OUTSIDE RECORDS SUMMARY | 2025-01-27 13:39 | XMS_ITS | Patient Health Record ---
Author Organization [facility] Address [address] [place] [address] Care Team Providers Care Community Services Coordinator Name Role Phone Viola Mack MD Primary Care Provider Unavaila marc Black, Katharina Unavailable [phone] Allergies Allergen (clinical drug ingredient) Drug/Non Drug [...] primary osteoarthritis of the ankle and/or foot (776845729) Primary osteoarthrit is, left ankle and foot (M19.072) Active confirmed Problem Non-pressure ulcer lower limb (600256287) Non-pressure chronic ulcer of other part of right foot limited to breakdown of skin (L97.511) Active confirmed Problem Acquired hammer toe of right foot (2025213487927375 ) Other hammer toe(s) (acquired), right foot (M20.41) Active confirmed Problem Acquired hammer toe of left foot (1321353933530050 ) Other hammer toe(s) (acquired), left foot (M20.42) Active confirmed Problem Pressure injury of right foot stage I (disorder) (301636276511296) Pressure injury of right foot, stage 1 (L89.891) Active confirmed Response to treatment - Improvement Vital Signs Blood pressure diastolic 56 mm Hg 09/21/2024 Height 5ft8in in 09/21/2024 Blood pressure systolic 172 mm Hg 09/21/2024 Weight 265 lbs 09/21/2024 BMI 40.29 kg/m2 09/21/2024 Procedures Procedure Date Ordered Date Performed Result Body Sit e 59742-VLNUUFD NAIL, 6 OR MORE 02/24/2024 N/A 31571-NMGWBHZ NAIL, OR MORE 06/15/2024 N/A 19012-Qffbzugk Plate 06/15/2024 N/A 15852- Debride <25 sq cm 06/15/2024 N/A 81348-KVVVHBB NAIL, 6 OR MORE 09/21/2024 N/A 92979-Mhnolrqr Plate 09/21/2024 N/A 14230- Debride <25 sq cm 09/21/2024 N/A Encounters Encounter Location Date Provider Diagnosis [address] [address] 02/24/2024 Katharina Black Tinea unguium B35.1 ; Pain in right toe(s) M79.674 and Pain in left toe(s) M79.[address] [address] 06/15/2024 Katharina Black Tinea unguium B35.1 ; Pressure injury of right foot, stage 1 L89.891 ; Pain in right toe(s) M79.674 ; Pain in left toe(s) M79.675 and Ingrown nail L60.[address] [address] 09/21/2024 Katharina Black Pressure injury of right [...] Treatment Pending Test Test Name Order Date 43468-EILQHFX NAIL, 6 OR MORE 08/07/2021 74839-GLYDYMM NAIL, 6 OR MORE 12/11/2021 50499-DSLJCUW NAIL, 6 OR MORE 04/16/2022 42036-SOEAZXZ NAIL, 6 OR MORE 08/20/2022 97859-BHKNIIB NAIL, 6 OR MORE 12/31/2022 91200-ONPMCGI NAIL, 6 OR MORE 05/06/2023 04894-GOBTIKC NAIL, 6 OR MORE 11/14/2023 49552-PUFNTSH NAIL, 6 OR MORE 02/24/2024 30076-IDJFALL NAIL, 6 OR MORE 06/15/2024 53068-ANNUBHN NAIL, 6 OR MORE 09/21/2024 91743-Ldodmipa Plate 09/21/2024 64501-Tyqkabyz Plate 05/06/2023 58113-Omvvqbau Plate 06/15/2024 49554-Tyybfbpd Plate 12/31/2022 69039- Debride <25 sq cm 12/11/2021 03543- Debride <25 sq cm 05/06/2023 77823- Debride <25 sq cm 12/31/2022 02156- Debride <25 sq cm 08/20/2022 38398- Debride <25 sq cm 04/16/2022 55076- Debride <25 sq cm 09/04/2021 56907- Debride <25 sq cm 04/16/2018 10130- Debride <25 sq cm 05/25/2021 00801- Debride <25 sq cm 08/07/2021 15121- Debride <25 sq cm 09/21/2024 26167- Debride <25 sq cm 06/15/2024 59246,G5112-HAC TENDON SHEATH/LIGAMENT 1 10/07/2020 32498,S7412-GXV TENDON SHEATH/LIGAMENT 0 05/25/2021 33641,M5720-SZD TENDON SHEATH/LIGAMENT 1 11/04/2020 Next Appt Details Provider Name:Katharina De La Rosa , 02/03/2025 01:30:00 PM, [address] [place] [address], [place], [address], Insurance Providers Payer Name Payer Address Payer Phone Subscriber Number Group Number Insured Name Patient Relationship to Insured Coverage Start Date Coverage End Date [facility] ([facility]) [address] [place] [address] [id number] [facility] Radha Blandon Self - patient is the insured Medical (General) History Medical History History ICD Code Anemia Anxiety disorder Arthritis Back,Hip,and Knee pain Chicken pox High blood pressure Kidney stones Measles Mumps Broken bones Sciatica A fib Surgical History Surgery Date(Month/Year) Lithotripsy 2019 eye surgery, lenses 09/28 Hospitalization History Reason Date(Month/Year) [facility] rapid heart rate 10/11/23
--- OUTSIDE RECORDS SUMMARY | 2025-01-27 13:39 | XMS_ITS | Patient Health Record ---
Author Organization [employer] Address [address] [place] [address] Support Name Relationship Address Phone DEVORA DUBOSE Guarantor Unknown [phone] Reason For Referral No Information Medications Medication SIG (Take, Route, Fr equency, Duration) Notes Start Date End Date Status Fluconazole 50MG 5ML ORAL WEEKLY for 7 Cas-MJ 12/19/2011 Active Immunizations Vaccine Route Administration Date Status Comme nts Influenza, live, intranasal Intramuscular 12/19/2011 Pendi ng Problems Problem Type SNOMED Code ICD Code Onset Dates Problem Status W/U Status Risk Notes Problem Gynecological examination normal (330355968621436) Routine gynecological examination (V72.31) Active confirmed Diag Plan Of Treatment No Information Insurance Providers Payer Name Payer Address Payer Phone Subscriber Number Group Number Insured Name Patient Relationship to Insured Coverage Start Date Coverage End Date [facility] INDEMNITY PLAN [address] [place], [place] [id number] DEVORA DUBOSE Self - patient is the insured
--- OUTSIDE RECORDS SUMMARY | 2025-01-27 13:39 | XMS_ITS | Clinical Summary ---
Author Organization [facility] Address [address] [place] [address] Care Team Providers Care Talent Management Manager Name Role Phone Unavailable Primary Care Provider Unavailabl e Surgical History Surgery Date Site/Laterality Comments OTHER SURGICAL HISTORY 1999 PROCEDURE: [place] ERCP DESTRUCTION/LITHOTRIPSY CALCULI ANY METHOD OTHER SURGICAL HISTORY 03/22 PROCEDURE: MAMMOGRAM COLONOSCOPY 01/07 PROCEDURE: [place] COLONOSCOPY STOMA DX INCLUDING COLLJ SPEC SPX; COMMENT: [facility] COLONOSCOPY 02/11/2014 PROCEDURE: [place] COLONOSCOPY FLX DX W/COLLJ SPEC WHEN PFRMD; COMMENT: normal Medical History Medical History Date Comments Calculus of kidney DX:Calculus o f kidney Dermatophytosis of nail 04/04/2006 DX:Stirling tophytosis of nail Primary localized osteoarthr osis, [...] Upcoming Encounters Date Type Department Care Team ([facility] st Contact Info) Description 05/19/2025 10:30 AM EDT Appointment Radiology Department [address] [address] Health Maintenance Due Date Last Done Comments Zoster Vaccines (2 of 3) 11/28/2011 10/03/2011 DTaP,Tdap,and Td Vaccines (2 - Td or Tdap) 09/21/2021 09/21/2011 Cholesterol Screening (Lipid Panel) 09/15/2022 Colorectal Cancer Screening: Colonoscopy 09/15/2022 Depression Screening 09/15/2022 Falls Risk Assessment 09/15/2022 Hepatitis C Screening 09/15/2022 Hypertension/CHF/CAD Annual BMP Blood Test 09/15/2022 Social Influencers of Health Screening 09/15/2022 COVID-19 Vaccine ( - season) 2024 Influenza Vaccine (Season Ended) 2025 Breast Cancer Screening 05/07/2026 05/07/20 24, 05/07/2024, [...] age to complete this topic Meningococcal B Vaccine Aged Out No l onger eligible based on patient's age to complete [...] classified as having normal bone density. The [facility] Department of Internal Medicine recommends using National [...] beclassified as having normal bone density. The [facility] Department of Internal Medicine recommendsusing National Osteoporosis [...]
[2025-01-27 13:48] LABS: Basophils Absolute Auto 0.1 X10*3/uL (0.0-0.2); Basophils Percent Auto 0.6 % (0-2); Eosinophils Absolute Auto 0.1 X10*3/uL (0.0-0.4); Eosinophils Percent Auto 0.6 % (0-4); Hematocrit 37.4 % (37.0-47.0); Hemoglobin 12.2 g/dl (12.0-16.0); Imm Gran Abs Auto 0.05 X10*3/uL (0.00-0.03); Imm Gran Pct Auto 0.5 % (0.0-0.4); Lymphocytes Absolute Auto 1.4 X10*3/uL (1.2-4.9); Lymphocytes Percent Auto 13.1 % (20-40); Mean Corpuscular HGB Conc 32.6 g/dl (31.0-35.0); Mean Corpuscular Hemoglobin 32.2 pg (27.0-33.0); Mean Corpuscular Volume 98.7 fL (80.0-98.0); Mean Platelet Volume 10.4 fL (9.4-12.3); Monocytes Absolute Auto 0.9 X10*3/uL (0.1-1.2); Monocytes Percent Auto 8.7 % (2-11); Neutrophils Absolute Auto 8.1 x10*3/uL (2.0-8.3); Neutrophils Percent Auto 76.5 % (45-73); Platelet Count 251 X10*3/uL (160-400); Red Blood Count 3.79 X10*6/uL (4.20-5.50); Red Cell Distribution Width 14.4 % (11.0-16.0); White Blood Count 10.6 X10*3/uL (4.8-10.8)
[2025-01-27 14:03] LABS: Alanine Aminotransferase 21 U/L (0-31); Albumin Level 3.9 g/dL (3.5-5.0); Alkaline Phosphatase 81 U/L (39-117); Anion Gap 11 (12-20); Aspartate Amino Transferase 21 U/L (5-31); Bilirubin Total 0.3 mg/dL (0.0-1.0); Blood Urea Nitrogen 29 mg/dL (9-16); Calcium 9.3 mg/dL (8.4-10.2); Carbon Dioxide 23 mmol/L (22-29); Chloride 107 mmol/L (96-108); Estimated Glomerular Filt Rate 45; Glucose Random 84 mg/dL (60-115); Magnesium 2.4 mg/dL (1.6-2.6); Phosphorus 3.4 mg/dL (2.7-4.5); Potassium 4.6 mmol/L (3.3-5.1); Sodium 136 mmol/L (135-145); Uric Acid 6.3 mg/dL (2.4-5.7)
[2025-01-27 14:06] LABS: Parathyroid Hormone Intact 112.9 pg/mL (8.7-77.1); Vitamin D 25-OH Total 40.3 ng/mL (>30)
[2025-01-27 14:11] LABS: Total Protein Urine Random < 7 mg/dL (<12)
== END 2025-01-27 11:17 | disposition home or self-care (01) ==
LOC: HO.HMGCLDS 11:16
PROVIDERS: PCP Internal Medicine; Visit Provider Internal Medicine Nephrology
DX: N18.31 Chronic kidney disease, stage 3a (principal); R60.0 Localized edema; I10 Essential (primary) hypertension; Z87.442 Personal history of urinary calculi
CPT/HCPCS: 36415; 80053; 82306; 82570; 83735; 83970; 84100; 84156; 84550; 85025

== ENCOUNTER 2025-03-08 09:44 | Outpatient (AMB) | payer OTHER, SELFPAY ==
--- NOTE | 2025-03-08 10:21 | A.OFFPC_ITS ---
Vital Signs 03/08/25 10:23 Height 5 ft 8 in Weight 275 lb 8 oz BMI 41.9 BP 132/70 Blood Pressure Location Lt brachial Position Sitting Pulse 64 Pulse Source Pulse Oximeter Temp 97.5 F Temp Source Oral Pulse Oximetry (%) 98 Oxygen Delivery Method Room Air Intake Visit Reasons: 6 month follow up Allergies metoprolol Allergy (Severe, Verified 03/08/25 10:25) Rash doxycycline Adverse Reaction (Intermediate, Verified 03/08/25 10:25) Abdominal Pain methylprednisolone Adverse Reaction (Intermediate, Verified 03/08/25 10:25) rapid heart rate erythromycin base Adverse Reaction (Unknown, Verified 03/08/25 10:25) upset stomach nausea dapagliflozin [From [facility]] Adverse Reaction (Verified 03/08/25 10:25) candidiasis Medication List - Last Reconciled 03/08/25 by Viola Mack MD amlodipine 2.5 mg PO DAILY apixaban (Eliquis) 5 mg PO BID atenolol 50 mg PO DAILY desonide 0.05% topical fluticasone propionate 50 mcg/actuation 1 spray intranasal BID PRN furosemide 20 mg PO Q OTHER DAY glucosamine sulfate 750 mg PO ONCE lisinopril 20 mg PO DAILY multivitamin 1 tab PO DAILY Ozempic (semaglutide) 0.25 mg (0.368 mL) subcut QWEEK NS spironolactone 25 mg PO DAILY Wegovy (semaglutide (weight loss)) 0.25 mg (0.5 mL) subcut QWEEK NS Tobacco use date assessed: 03/08/25 Fall risk assessment: No Falls in past year Last assessed Fall Risk: 03/08/25 Dental Screening Dental Screen Date: 03/08/25 Did you have a dental visit in the last 12 months?: Yes Did you have a dental problem in the last 6 months where you did not have access to dental care?: No Was dental information given to patient?: Patient has dentist HPI 6 month follow up HPI Details Pt presents for f/u HTN, chronic kidney disease stage 3 established with Nephrology, paroxysmal AFib anticoagulated on Eliquis and chronic lower extremity lymphedema. Patient has been taking 20 mg daily for edema but has not noticed any difference in her swelling. Patient sits most of the days and has not been physically active [facility] Medical History Atrial fibrillation CKD (chronic kidney disease) stage 3, GFR 30-59 ml/min SHARIF (obstructive sleep apnea) Retrognathia Chest pain Morbid obesity Hyperlipemia Annual physical exam Mammogram normal DJD (degenerative joint disease), lumbar Anxiety HTN (hypertension) Surgical History H/O bilateral cataract extraction H/O lithotripsy H/O colonoscopy Family History Father No problems noted. Mother HTN (hypertension) Social History Housing: House Alcohol intake: current Alcohol intake frequency: holidays/special occasions on ly Patient Tobacco Use Status: Never used Tobacco e-Cigarette/Vaping Use: Never Used Second Hand Smoke Exposure: No service: No Current occupational status: retired Cognitive needs: No Hearing needs: No Vision needs: Yes Questionnaire PHQ-9 Over the last 2 weeks, how often have you been bothered by any of the following problems? 1. Little interest or pleasure in doing things: not at all 2. Feeling down, depressed, or hopeless: not at all 3. Trouble falling or staying asleep, or sleeping too much: not at all 4. Feeling tired or having little energy: not at all 5. Poor appetite or overeating: not at all 6. Feeling bad about yourself - or that you are a failure or have let yourself or your family down: not at all 7. Trouble concentrating on things, such as reading the newspaper or watching television: not at all 8. Moving or speaking so slowly that other people could have noticed. Or the opposite - being so fidgety or restless that you have been moving around a lot more than usual: not at all 9. Thoughts that you would be better off or of hurting yourself in some way: not at all Total score: 0 Depression Screening Interpretation: Negative Depression Screening Done: Yes Source: Developed by Drs. Gopi Baker, Stefani Doyle, Alfonso Carey and colleagues, with an educational jeancarlos from [employer]. Thrive Questionnaire Date Thrive assessed: 03/08/25 I am a: Patient What is your living situation today?: I have a steady place to live Within the past 12 months, did the food you bought not last and you didn't have the money to get more?: Never true Within the past 12 months, did you worry whether your food would run out before you got money to buy more?: Never true Do you have trouble paying for medicines?: No Do you have trouble getting transportation to medical appointments?: No Do you have trouble paying your heating and electricity bill?: No Do you have trouble taking care of your child, family member or friend?: No Do you have trouble with day-to-day activities such as bathing, preparing meals, shopping, managing finances, etc.?: No Are you currently unemployed and looking for a job?: No Are you interested in more education?: No Please select the resources that you would like help with: None Currently or been in a relationship where the following occur: No concerns reported THRIVE Score: 0 AUDIT C Alcohol Use Questionnaire (AUDIT-C) 1. How often do you have a drink containing alcohol?: Never 3. How often do you have six or more drinks on one occasion?: Never Total Score: 0 HANNA-7 AMB Questionnaire HANNA-7 Date HANNA - 7 assessed: 03/08/25 Feeling nervous, anxious, or on edge: 0 = Not at all Not being able to stop or control worryin = Not at all Worrying too much about different things: 0 = Not at all Trouble relaxin = Not at all Being so restless that it is hard to sit still: 0 = Not at all Becoming easily annoyed or irritable: 0 = Not at all Feeling afraid as if something awful might happen: 0 = Not at all Total HANNA-7 score (0-4 normal; 5-9 mild; 10-14 moderate; 15-21 severe): 0 Source: Developed by Drs. Gopi Baker, Stefani Doyle, Alfonso Carey and colleagues, with an educational jeancarlos from [employer]. Review of Systems Const All systems reviewed & are unremarkable except as noted in HPI and below Reports no additional complaints Eyes Reports no additional complaints ENT Reports no additional complaints Card Reports no additional complaints Resp Reports no additional complaints GI Reports no additional complaints Reports no additional complaints Physical exam (Primary Care) Vital Signs: Last Vital Signs Temp 97.5 F 03/08/25 10:23 Pulse 64 03/08/25 10:23 BP 132/70 03/08/25 10:23 Pulse Ox 98 03/08/25 10:23 Oxygen Delivery Method Room Air 03/08/25 10:23 BMI result Body Mass Index 41.9 Tobacco/Smoking Status: Tobacco use Status Tobacco use date assessed 03/08/25 03/08/25 10:27 Patient Tobacco Use Status Never used Tobacco 03/08/25 10:27 e-Cigarette/Vaping Use Never Used 03/08/25 10:27 PHQ-9: PHQ-9 Score PHQ-9: Total score 0 03/08/25 10:27 Depression Screening Interpretation: Negative Thrive Assessment: Date of Thrive Assessment Date Thrive assessed 03/08/25 03/08/25 10:27 Currently or been in a relationship where the following occur: No concerns reported Const General: no acute distress HENMT Head: Yes normal to inspection Ears: hearing grossly normal bilaterally General nose exam: Normal external nose present Face and sinus: Yes normal facial exam Mouth: Normal oral and palatal mucosa present Eyes General: appearance normal, both eyes and all related structures Neck Neck: Yes no lymphadenopathy and Yes supple Resp Effort & Inspection: normal respiratory effort Auscultation: clear to auscultation bilaterally Cardio Rhythm: regular rhythm Heart sounds: S1 normal heart sound present and S2 normal heart sound present GI Inspection: Yes normal to inspection Palpation (GI): Soft to palpation Percussion: Yes normal to percussion Auscultation: normal bowel sounds Extrem Other: 2+ pitting edema bilaterally and chronic venous stasis Coding Level of Care Code Est Pt Level 4 (21073) Diagnoses Atrial fibrillation I48.91 CKD (chronic kidney disease) stage 3, GFR 30-59 ml/min N18.30 Morbid obesity E66.01 HTN (hypertension) I10 Edema R60.9 Assessment & Plan Assessment & Plan (1) Atrial fibrillation: Comment: 10/11/23 ER visit, started on Eliquis, metoprolol ? allergic reaction, rash Code(s): I48.91 - Unspecified atrial fibrillation Category: Medical Plan: Continue atenolol and Eliquis follow-up with the Cardiology (2) CKD (chronic kidney disease) stage 3, GFR 30-59 ml/min: Comment: started Farxiga 09/28 but stopped on 10/20/23 because of rash, patient's call worker person did not recommend SGTP2 inhibitor Code(s): N18.30 - Chronic kidney disease, stage 3 unspecified Category: Medical Plan: Monitor renal function avoid nephrotoxins (3) Morbid obesity: Comment: BMI= 42.0 PATIENT IS THE DEFINITELY OVERWEIGHT. OBESITY IS MAINLY TRUNCAL AND OF THE LOWER EXTREMITIES. SHE HAS CHRONIC LYMPHEDEMA AND STASIS EDEMA , patient's insurance does not cover GLP 1 agonist for weight loss Code(s): E66.01 - Morbid (severe) obesity due to excess calories Category: Medical Plan: , decreasing caloric intake and increasing physical activity discussed with the patient, Patient's insurance does not cover GLP 1 agonist for weight loss (4) HTN (hypertension): Code(s): I10 - Essential (primary) hypertension Category: Medical Plan: Continue current medications (5) Edema: Comment: Chronic lower extremities edema due to venous stasis AND POSSIBLE ASSOCIATED LYMPHEDEMA. Code(s): R60.9 - Edema, unspecified Category: Medical Plan: Increase furosemide to 40 mg a day check basic metabolic panel in 1 week and follow-up in 1 month with a fasting labs before. Patient was advised to wear compression knee-highs and elevate lower extremities Orders: Orders Basic Metabolic Panel 1 Week E78.5 - Hyperlipidemia, unspecified, I10 - Es sential (primary) hypertension Comprehensive [place]. Panel Fast 1 Month I48.91 - Unspecified atrial fibrillation, N18.30 - Chronic kidney disease, stage 3 unspecified, R60.9 - Edema, unspecified Lipid Panel 1 Month I48.91 - Unspecified atrial fibrillation, N18.30 - Chronic kidney disease, stage 3 unspecified, R60.9 - Edema, unspecified Medications: Changed From furosemide 20 mg PO Q OTHER DAY 45 tabs 1RF R60.0 - Localized edema To furosemide 20 mg PO .QD 90 tabs 1RF R60.0 - Localized edema From furosemide 20 mg PO .QD 90 tabs 1RF R60.0 - Localized edema To furosemide 40 mg (2 x 20 mg) PO .QD 180 tabs 1RF R60.0 - Localized edema Discontinued spironolactone Discontinued Reason: Doctor's Order 25 mg PO DAILY 90 tabs 1RF Wegovy (semaglutide (weight loss)) Discontinued Reason: Doctor's Order 0.25 mg (0.5 mL) subcut QWEEK 2 mL 2RF NS Ozempic (semaglutide) Discontinued Reason: Doctor's Order 0.25 mg (0.368 mL) subcut QWEEK 3 mL 2RF NS
[2025-03-08 10:23] VITALS: BP 132/70; PULSE 64; TEMP 36.4; O2SAT 98; BMI 41.9
--- OUTSIDE RECORDS SUMMARY | 2025-03-08 10:26 | XMS_ITS ---
Author Organization [facility] Address [address] [place] [address] Care Team Providers Care Issuing Operator Name Role Phone Frederick COPELAND, Viola Primary Care Provider Unavaila Katharina Lawrence Unavailable [phone] Saha Encounters Encounter Location Date Provider Diagnosis [address] [address] 12/28/2024 Katharina De La Rosa Plan Of Treatment Next Appt Details Provider Name:Katharina De La Rosa , 06/03/2025 02:45:00 PM, [address] [place] [address], [address], Progress Notes * Radha BLANDON EDOB: (74 yo F)Acc No.[id number]:12/28/2024 Progress Note Patient:?Radha BLANDON Provider:?Katharina De La Rosa DPM :1950???Age:74 Y???Sex:Female D ate:12/28/2024 Address:[place] Pcp:Viola Mack MD Subjective: * Chief Complaints: [...] Rosa DPM Date:?2024 Generated for William ingram/Kaity/Javi on:?03/08/2025 10:26 AM EDT
== END 2025-03-08 11:02 | disposition home or self-care (01) ==
LOC: HO.HMCC 09:45
PROVIDERS: PCP Internal Medicine; Visit Provider Internal Medicine
DX: I12.9 Hypertensive chronic kidney disease with stage 1 through stage 4 chronic kidney disease, or unspecified chronic kidney disease (principal); N18.30 Chronic kidney disease, stage 3 unspecified; E66.01 Morbid (severe) obesity due to excess calories; Z68.41 Body mass index [BMI] 40.0-44.9, adult; I48.91 Unspecified atrial fibrillation; R60.9 Edema, unspecified

== ENCOUNTER → 2025-03-08 09:44 | Outpatient (BNVA) | payer OTHER, SELFPAY | PROVIDERS: PCP Internal Medicine; Visit Provider Internal Medicine ==

== ENCOUNTER 2025-06-04 09:47 | Outpatient (REF) | payer OTHER, SELFPAY ==
--- OUTSIDE RECORDS SUMMARY | 2024-12-28 07:30 | XMS_ITS ---
Author Organization [facility] Address [address] [place] [address] Care Team Providers Care Clinical Genetics Laboratory Chief Name Role Phone Viola Mack MD Primary Care Provider Unavaila Katharina Lawrence Unavailable [phone] Saha Encounters Encounter Location Date Provider Diagnosis [facility] [address] [place] [address] 12/28/2024 Katharina Rj Plan Of Treatment Next Appt Details Provider Name:Katharina De La Rosa , 07/06/2025 01:30:00 PM, [address] [facility], [place], [address], Progress Notes * Radha BLANDON EDOB: (74 yo F)Acc No.[id number]:12/28/2024 Progress Note Patient: Marika TOUSSAINT Radha Taylor Provider: Marika De La Rosa DPM :1950 A ge:74 Y S ex:Female Date:12/28/2024 Address:[address] [place] Pcp:Viola Mack MD Subjective: * Chief Complaints: [...] 12/28/2024 Generated for William Mckeon/Javi on: 0 06/04/2025 10:31 AM EDT
--- OUTSIDE RECORDS SUMMARY | 2025-03-29 06:30 | XMS_ITS ---
Author Organization [facility] Address [address] [place] [address] Care Team Providers Care National Sales Trainer Name Role Phone Viola Mack MD Primary Care Provider Unavaila marc De La Rosa Katharina Unavailable [phone] REASON FOR VISIT Seen Sooner Encounters Encounter Location Date Provider Diagnosis [facility] [address] [place] [address] 03/29/2025 Katharina Rj Plan Of Treatment Next Appt Details Provider Name:Katharina De La Rosa , 07/06/2025 01:30:00 PM, [address] [facility], [place], [address], Progress Notes * Radha BLANDON EDOB: (74 yo F)Acc No.[id number]:03/29/2025 Progress Note Patient: Marika TOUSSAINT Radha Taylor Provider: Marika De La Rosa DPM :1950 A ge:74 Y S ex:Female Date:03/29/2025 Address:[address] [place] Pcp:Viola Mack MD Subjective: * Chief Complaints: * 1 . Seen Sooner. * Medical History: Objective: * Vitals: Assessment: Plan: * Treatment: * Images: * The named appointment provid er may or may not be the originator of this progress note, and it is not deemed complete until electronically signed by the appointment provider. Sign off status: Pending * Provider: aMrika De La Rosa DPM Date: 0 03/29/2025 Generated for William Mckeon/Javi on: 0 06/04/2025 10:31 AM EDT
--- OUTSIDE RECORDS SUMMARY | 2025-06-03 10:45 | XMS_ITS ---
Author Organization [facility] Address [address] [place] [address] Care Team Providers Care Wood Drilling Machine Operator Name Role Phone Viola Mack MD Primary Care Provider Unavaila Katharina Lawrence Unavailable [phone] Saha Encounters Encounter Location Date Provider Diagnosis [facility] [address] [place] [address] 06/03/2025 Katharina Rj Plan Of Treatment Next Appt Details Provider Name:Katharina De La Rosa , 07/06/2025 01:30:00 PM, [address] [facility], [place], [address], Progress Notes * Radha BLANDON EDOB: (74 yo F)Acc No.[id number]:06/03/2025 Progress Note Patient: Marika TOUSSAINT Radha Taylor Provider: Marika De La Rosa DPM :1950 A ge:74 Y S ex:Female Date:06/03/2025 Address:[address] [place] Pcp:Viola Mack MD Subjective: * Chief Complaints: [...] DPM Date: 0 06/03/2025 Generated for William Mckeon/Javi on: 0 06/04/2025 10:31 AM EDT
--- OUTSIDE RECORDS SUMMARY | 2025-06-04 10:32 | XMS_ITS | Patient Health Record ---
Author Organization [facility] Address [address] [facility] [address] [place] [address] Support Name Relationship Address Phone DEVORA DUBOSE Guarantor Unknown [phone] Reason For Referral No Information Medications Medication SIG (Take, Route, Fr equency, Duration) Notes Start Date End Date Status Fluconazole 50MG 5ML ORAL WEEKLY; Duration: 7 Cas-MJ 12/05 Active Immunizations Vaccine Route Administration Date Status Comme nts Influenza, live, intranasal Intramuscular 12/19/2011 Pendi ng Problems Problem Type SNOMED Code ICD Code Onset Dates Problem Status W/U Status Risk Notes Problem Gynecological examination normal (611280479404146) Routine gynecological examination (V72.31) Active confirmed Diag Plan Of Treatment No Information Insurance Providers Payer Name Payer Address Payer Phone Subscriber Number Group Number Insured Name Patient Relationship to Insured Coverage Start Date Coverage End Date [facility] INDEMNITY PLAN [address] [place], [place] [id number] DEVORA DUBOSE Self - patient is the insured
--- OUTSIDE RECORDS SUMMARY | 2025-06-04 10:32 | XMS_ITS | Patient Health Record ---
Author Organization [facility] Address [address] [facility] [place] [address] Care Team Providers Care Special Effects Designer Name Role Phone Viola Mack MD Primary Care Provider Dylan De La Rosa Katharina Unavailable [phone] Allergies Allergen (clinical drug ingredient) Drug/Non Drug [...] Date Status Walking Boot/Pneumatic As directed Wear Daily; Duration: Until further notice 10/10/2023 Not-Taking Atenolol 50 MG 1 tablet Orally Once a day Active Farxiga 5 MG 1 tablet Orally Once a day Not-Taking Eliquis 5 MG as directed Orally 2 times daily Active Gabapentin 600 MG 1 tablet Orally Once a day; Duration: 30 day(s) Not-Taking Charis Allergy 180 MG 1 tablet Orally O nce a day; Duration: 30 day(s) Active Norvasc 10 MG 1 tablet Orally Once a day Not-Taking Tylenol PM Extra Strength 500-25 MG 1 tablet at bedtime as needed Orally Once a day Active Compression Stockings 20-30mm Hg 1 pair wear daily; Duration: 30 days Active Medrol masha 4mg as directed orally a s directed; Duration: 6 days 10/10/2023 Not-Taking amLODIPine Besylate 5 MG 5 mL Orally Onc e a day; Duration: 30 days Active hydrOXYzine HCl 25 MG 1 tablet as needed Orally every 8 hrs Not-Taking Glucosamine Sulfate 750 MG 1 capsule with a meal Orally Once a day Active Aspirin 81 MG 1 tablet Orally Once a day Not-Taking Lisinopril 20 MG 1 tablet Orally Once a day Active Multivitamin Adult - Orally Active Immunizations Vaccine Route Administration Date Status Comme nts Influenza Unknown 08/07/2021 Refused COVID-19 Moderna Vaccine Unknown 12/29/2020 Administere d 12/01/2020 Social History Tobacco Use: Social History Observation Description Date Details (start date - stop date) Never Smoker NA - NA Tobacco use other than smoking: Question Answer Notes Are you an other tobacco user? No Tobacco Control (Standard) Question Answer Notes Tobacco use: Nonsmoker Additional Findings: Tobacco non-user Current no nsmoker AUDIT-C (Standard) Question Answer Notes Did you have a drink containing alcohol in the p ast year? No Points 0 Interpretation Negative Problems Problem Type SNOMED Code ICD Code Onset Dates Problem Status W/U Status Risk Notes Problem Localized, primary osteoarthritis of the ankle and/or foot (530584841) Primary osteoarthrit is, left ankle and foot (M19.072) Active confirmed Problem Non-pressure chronic ulcer of other part of right foot limited to breakdown of skin (L97.511) Active confirmed Problem Acquired hammer toe of right foot (5854714962444632 ) Other hammer toe(s) (acquired), right foot (M20.41) Active confirmed Problem Acquired hammer toe of left foot (9305981511730200 ) Other hammer toe(s) (acquired), left foot (M20.42) Active confirmed Problem Localized, primary osteoarthritis of the ankle and/or foot (099659776) Arthritis of joint of lesser toe, left (M19.072) Active confirmed Problem Pressure injury of right foot stage I (disorder) (947189042838258) Pressure injury of right foot, stage 1 (L89.891) Active confirmed Response to treatment - Improvement Vital Signs Blood pressure diastolic 70 mm Hg 02/03/2025 Height 5ft 8in in 02/03/2025 Blood pressure systolic 130 mm Hg 02/03/2025 Weight 265 lbs 02/03/2025 BMI 40.29 kg/m2 02/03/2025 Procedures Procedure Date Ordered Date Performed Result Body Sit e 16257-FUFVIFS NAIL, 6 OR MORE 06/15/2024 N/A 31634-Mxomfohg Plate 06/15/2024 N/A 09189- Debride <25 sq cm 06/15/2024 N/A 43963-BIFDLGF NAIL, 6 OR MORE 09/21/2024 N/A 71755-Wvrdkhwr Plate 09/21/2024 N/A 98956- Debride <25 sq cm 09/21/2024 N/A 31443-UPWYJWQ NAIL, 6 OR MORE 02/03/2025 N/A Encounters Encounter Location Date Provider Diagnosis [address] [address] 06/15/2024 Katharina Black Tinea unguium B35.1 ; Pressure injury of right foot, stage 1 L89.891 ; Pain in right toe(s) M79.674 ; Pain in left toe(s) M79.675 and Ingrown nail L60.[address] [address] 09/21/2024 Katharina Black Pressure injury of right foot, stage 1 L89.891 ; Edema, lower extremity R60.0 ; Tinea unguium B35.1 ; Pain in right toe(s) M79.674 ; Pain in left toe(s) M79.675 and Ingrown nail L60.[address] [address] 02/03/2025 Katharina Black Tinea unguium B35.1 ; Bulla R23.8 ; Pain in right toe(s) M79.674 ; Pain in left toe(s) M79.675 and Other hammer toe(s) (acquired), left foot M20.42 Assessments Encounter Date Diagnosis (ICD Code) Assessment [...] 09/21/2024 Edema, lower extremity (ICD-10 - R60.0) 02/03/2025 Tinea unguium (ICD-10 - B35.1) 02/03/2025 Bulla (ICD-10 - R23.8) 02/03/2025 Pain in right toe(s) (ICD-10 - M79.674) 09/21/2024 Tinea unguium (ICD-10 - B35.1) 06/15/2024 Pain in right toe(s) (ICD-10 - M79.674) 06/15/2024 Pain in left toe(s) (ICD-10 - M79.675) 09/21/2024 Pain in right toe(s) (ICD-10 - M79.674) 02/03/2025 Pain in left toe(s) (ICD-10 - M79.675) 02/03/2025 Other hammer toe(s) (acquired), left foot (ICD-10 - M20.42) 09/21/2024 Pain in left toe(s) (ICD-10 - M79.675) 06/15/2024 Ingrown nail (ICD-10 - L60.0) 09/21/2024 Ingrown nail (ICD-10 - L60.0) 06/15/2024 Other Plan Of Treatment Pending Test Test Name Order Date 48336-RQJTUSG NAIL, 6 OR MORE 08/07/2021 12795-LQDHAFZ NAIL, 6 OR MORE 12/11/2021 33301-KKSRWKK NAIL, 6 OR MORE 04/16/2022 20235-RQNSVQH NAIL, 6 OR MORE 08/20/2022 30555-QSEDGUV NAIL, 6 OR MORE 12/31/2022 11950-SXSSMRS NAIL, 6 OR MORE 05/06/2023 24631-BCIMNJA NAIL, 6 OR MORE 11/14/2023 09660-KZBNOSX NAIL, 6 OR MORE 02/24/2024 78900-TSXPTKQ NAIL, 6 OR MORE 06/15/2024 19317-RYRFLNU NAIL, 6 OR MORE 09/21/2024 62446-UQCTCLV NAIL, 6 OR MORE 02/03/2025 81638-Hnxophrr Plate 09/21/2024 82389-Ijimtwam Plate 05/06/2023 70896-Zcmjwtrq Plate 06/15/2024 76323-Encyqzlm Plate 12/31/2022 51003- Debride <25 sq cm 12/11/2021 38628- Debride <25 sq cm 05/06/2023 23774- Debride <25 sq cm 12/31/2022 50098- Debride <25 sq cm 08/20/2022 43129- Debride <25 sq cm 04/16/2022 61031- Debride <25 sq cm 09/04/2021 27461- Debride <25 sq cm 04/16/2018 24570- Debride <25 sq cm 05/25/2021 75272- Debride <25 sq cm 08/07/2021 40826- Debride <25 sq cm 09/21/2024 01669- Debride <25 sq cm 06/15/2024 41332,K7475-QRU TENDON SHEATH/LIGAMENT 1 10/07/2020 02883,V9908-HQN TENDON SHEATH/LIGAMENT 0 05/25/2021 53729,F7445-SER TENDON SHEATH/LIGAMENT 1 11/04/2020 Next Appt Details Provider Name:Katharina De La Rosa , 07/06/2025 01:30:00 PM, [address] [facility], [place], [address], Insurance Providers Payer Name Payer Address Payer Phone Subscriber Number Group Number Insured Name Patient Relationship to Insured Coverage Start Date Coverage End Date [facility]) [address] [place] [id number] [facility] Radha Blandon Self - patient is the insured Medical (General) History Medical History History ICD Code Anemia Anxiety disorder Arthritis Back,Hip,and Knee pain Chicken pox High blood pressure Kidney stones Measles Mumps Broken bones Sciatica A fib Surgical History Surgery Date(Month/Year) Lithotripsy 2019 eye surgery, lenses 12/23 Hospitalization History Reason Date(Month/Year) [facility] [place] rapid heart rate 10/11/23
--- OUTSIDE RECORDS SUMMARY | 2025-06-04 10:32 | XMS_ITS | Clinical Summary ---
Author Organization [address] Address [address] [place] [address] Phone Care Team Providers Care Grill Associate Name Role Phone Viola Mack MD Primary Care Provider [phone] Encounters Date Type Department Care Team Description 05/21/2025 1:30 PM EDT - 05/21/2025 11:59 PM EDT Hospital Encounter Radiology Department - [address] [phone] Discharge Disposition: Home or Self Care 05/21/2025 1:30 PM EDT - 05/21/2025 11:59 PM EDT Hospital Encounter Radiology Department - [address] [phone] Screening mammogram for breast cancer Discharge Disposition: Home or Self Care from Last 3 Months Surgical History Surgery Date Site/Laterality Comments OTHER SURGICAL HISTORY 1999 PROCEDURE: ND ERCP DESTRUCTION/LITHOTRIPSY CALCULI ANY METHOD OTHER SURGICAL HISTORY 03/22 PROCEDURE: MAMMOGRAM COLONOSCOPY 01/07 PROCEDURE: ND COLONOSCOPY STOMA DX INCLUDING COLLJ SPEC SPX; COMMENT: [facility] COLONOSCOPY 02/11/2014 PROCEDURE: ND COLONOSCOPY FLX DX W/COLLJ SPEC WHEN PFRMD; COMMENT: normal Medical History Medical History Date Comments Calculus of kidney DX:Calculus o f kidney Dermatophytosis of nail 04/04/2006 DX:[place] tophytosis of nail Primary localized osteoarthr osis, [...] = 0.6 oz pur e alcohol) Comments No Sex and Gender Information Value Date Recorded Sex Assigned at Not on file Legal Sex Female 7:57 AM EST Gender Identity Not on file Sexual Orientation Not on file Obstetrics History Para Term AB IAB SAB Ectopic Multiple Livin g Live Births 0 0 0 0 Plan of Treatment Health Maintenance Due Date Last Done Comments RSV Immunization Adult Patients (1 - Risk 60-74 years 1-dose series) 2011 Zoster Vaccines (2 of 3) 11/28/2011 10/03/2011 Cholesterol Screening (Lipid Panel) 09/15/2022 Colorectal Cancer Screening: Colonoscopy 09/15/2022 Falls Risk Assessment 09/15/2022 Hepatitis C Screening 09/15/2022 Social Influencers of Health Screening 09/15/2022 COVID-19 Vaccine ( season) 2024 12/29/2020, 12/01/2020 Depression Screening 10/07/2024 Influenza Vaccine (#1) 2025 Hypertension/CHF/CAD Annual BMP Blood Test 01/27/2026 01/27/2025 Breast Cancer Screening 05/21/2027 05/21/20 25, 05/07/2024, 05/07/2024, Additional history exists Osteoporosis Screening (Bone Density Screening) 01/02/2032 01/01/2017 DTaP,Tdap,and Td Vaccines (5 - Td or Tdap) 11/28/2034 11/28/2024, 09/21/2011, 05/31/2004, Additional history exists Pneumococcal Vaccine: 50+ Years Completed 07/03/2018, 12/24/2016 [...] Procedure Name Priority Date/Time Associated Diagnosis Comments MG MAMMO DIGITAL SCREENING W ZAC BILAT Routine 05/21/2025 3:35 PM EDT Screening mammogram for breast cancer DXA BONE DENSITY STUDY 1+ SITS AXIAL SKEL Routine 01/01/2017 11:27 AM EDT Unspecified menopausal and perimenopausal disorder from Last 3 Months or Most Recently Relevant to Health Maintenance Results * MG Mammo Digital Screening w Zac bilat (05/21/2025 3:35 PM EDT) Anatomical Region Laterality Modality Breast Bilateral Mammography 05/24/2025 6:09 PM EDT Impressions 05/24/2025 6:09 PM EDT No mammographic evidence of malignancy. BREAST DENSITY: B - There are scattered areas of fibroglandular density. BI-RADS CATEGORY: 1 - NEGATIVE RECOMMENDATION: Screening bilateral mammogram is recommended in 1 year. MAMMO LOCATION: [facility], [address] [place] [address], [address], . -------- FINAL REPORT -------- Dictated By: Leena Tejeda Dictated Date: 05/24/2025 18:09 ET Assigned Physician: Leena Tejeda Reviewed and Electronically Signed By: Leena Tejeda Signed Date: 05/24/2025 18:09 ET Workstation ID: [id number] Transcribed By: Self Edit Transcribed Date: 05/24/2025 18:09 ET Narrative 05/24/2025 6:09 PM EDT EXAM: Screening Mammogram CLINICAL: 74 years old, Female, routine annual exam. COMPARISON: 05/07/2024 and as far back as 04/20/2021 TECHNIQUE: Bilateral MLO and CC views were obtained digitally with 3-D mammogram (digital breast tomosynthesis). Computer-aided detection was utilized in evaluation of this exam (CAD). FINDINGS: No new suspicious mass, architectural distortion, or suspicious calcifications. Procedure Note Leena Tejeda MD - 05/24/2025 EXAM: Screening Mammogram CLINICAL: 74 years old, Female, routine annual exam. COMPARISON: 05/07/2024 and as far back as 04/20/2021 TECHNIQUE: Bilateral MLO and CC views were obtained digitally with 3-Dmammogram (digital breast tomosynthesis). Computer-aided detection wasutilized in evaluation of this exam (CAD). FINDINGS: No new suspicious mass, architectural distortion, or suspiciouscalcifications. IMPRESSION: No mammographic evidence of malignancy. BREAST DENSITY: B - There are scattered areas of fibroglandular density. BI-RADS CATEGORY: 1 - NEGATIVE RECOMMENDATION: Screening bilateral mammogram is recommended in 1 year. MAMMO LOCATION: [facility], [address] [place] [address], [address], . -------- FINAL REPORT -------- Dictated By: Leena Tejeda Dictated Date: 05/24/2025 18:09 ET Assigned Physician: Leena Tejeda Reviewed and Electronically Signed By: Leena Tejeda Signed Date: 05/24/2025 18:09 ET Workstation ID: [id number] Transcribed By: Self Edit Transcribed Date: 05/24/2025 18:09 ET us Viola Mack MD IMG BI PROCEDURES Final Resul t * DXA BONE DENSITY STUDY 1+ SITS AXIAL SKEL (01/01/2017 11:27 AM EDT) Anatomical Region Laterality Modality Bone Densitometr y 12/24/2016 1:30 PM EDT Narrative 01/01/2017 2:56 PM EDT BONE DENSITY Lumbar Spine T-score is +3.4 (SD relative to 20-29 y/o adult) Z-score is +5.2 (SD relative to age matched peers) This is normal by criteria defined by the WHO. Left Hip T-score is +1.1 Z-score is +2.6 This is normal by criteria defined by the WHO. Comparison exam(s): significant decrease in bone density of hip when compared to most recent bone density examination Confidence level is +/-95%. Impression: Based on the World Health Organization criteria, Radha Blandon should be classified as having normal bone density. [facility] Department of Internal Medicine recommends using National [...] beclassified as having normal bone density. [facility] Department of Internal Medicine recommendsusing National Osteoporosis [...] or over-estimation of fracture risk by FRAX. Laureen Pillai MD IM DXA PROCEDURES Final Result from Last 3 Months or Most Recently Relevant to Health [place] [id number] [employer] [place] [id number] Care Teams Grill Associate Relationship Specialty Start Date End Date Viola Mack MD [address] [place] [address] PCP - General Internal Medicine 05/21/25
--- OUTSIDE RECORDS SUMMARY | 2025-06-04 10:32 | XMS_ITS | Clinical Summary ---
Author Organization [facility] Address [address] [facility] [address] [place] [address] Phone Care Team Providers Care Mulling Machine Operator Name Role Phone Viola Mack MD Primary Care Provider [phone] Allergies Active Allergy Reactions Criticality Noted Date Comments Azithromycin Other (see comments) 07/27/2024 Clarithromycin Other (see comments) 07/27/2024 Doxycycline GI intolerance 07/27/2024 Erythromycin Other (see comments) 01/23/2023 Metoprolol Rash Low 07/27/2024 Prednisone Palpitations Low 07/27/2024 Medications amLODIPine (NORVASC) 5 MG tablet Take 5 mg by mouth 1 (one) time each day 01/14/2023 Active diphenhydrAMINE HCl (ALLERGY MED PO) if needed 07/07/2021 Active diphenhydrAMINE -acetaminophen (TYLENOL PM) 25-500 MG per tablet Take 1 tablet by mouth at night if needed for sleep Active apixaban (Eliquis) 5 MG tablet Take 5 mg by mouth in the morning and 5 mg in the evening. Active atenolol (TENORMIN) 50 MG tablet Take 50 mg by mouth 1 (one) time each day 01/20/2024 Active lisinopril 20 MG tablet Take 1 tablet (20 mg total) by mouth 1 (one) time each day 02/04/2025 Active Active Problems Problem Noted Date Diagnosed [...] Sign Reading Time Taken Comments Blood Pressure 124/60 02/04/2025 9:47 AM EDT Pulse 78 02/04/2025 9:47 AM EDT Temperature - - Respiratory Rate - - Oxygen Saturation 99% 02/04/2025 9:47 AM EDT Inhaled Oxygen Concentration - - Weight 126 kg (277 lb 3.2 oz) 02/04/2025 9:47 AM EDT Height 175.3 cm (5' 9 ) 07/27/2024 10:20 AM EDT Body Mass Index 40.94 07/27/2024 10:20 AM EDT Plan of Treatment Upcoming Encounters Date Type Department Care Team (Late st Contact Info) Description 08/09/2025 10:20 AM EST Office Visit [facility] [address] [phone] Justin Espitia MD [facility] [address] [phone] Health Maintenance Due Date Last Done Comments Breast Cancer Screening 1950 Pneumococcal Vaccine: 50+ Ye ars (1 of 2 - PCV) 1970 Colorectal Cancer Screening: Annual FOBT 2000 Colorectal Cancer Screening: Colonoscopy 2000 Colorectal Cancer Screening: Sigmoidoscopy 2000 Influenza Vaccine (#1) 2025 Hepatitis B Vaccine Aged Out No longe r eligible based on patient's age to complete this topic Insurance [facility] [place] [facility] [place] [id number] Care Teams Mulling Machine Operator Relationship Specialty Start Date End Date Viola Mack MD 1960 [facility] [place] [id number] PCP - General Internal Medicine 08/21/22
[2025-06-04 13:34] LABS: MANUAL DIFF FLAG NO
[2025-06-04 13:38] LABS: Hematocrit 35.4 % (37.0-47.0); Hemoglobin 11.3 g/dl (12.0-16.0); Imm Gran Abs Auto 0.11 X10*3/uL (0.00-0.03); Imm Gran Pct Auto 1.5 % (0.0-0.4); Lymphocytes Absolute Auto 1.0 X10*3/uL (1.2-4.9); Mean Corpuscular HGB Conc 31.9 g/dl (31.0-35.0); Mean Corpuscular Hemoglobin 31.5 pg (27.0-33.0); Mean Corpuscular Volume 98.6 fL (80.0-98.0); NRBC Abs Auto 0.000 X10*3/uL (0.0-0.012); NRBC Pct Auto 0.0 /100WBC (0.0-0.2); Platelet Count 269 X10*3/uL (160-400); Red Blood Count 3.59 X10*6/uL (4.20-5.50); White Blood Count 7.6 X10*3/uL (4.8-10.8)
[2025-06-04 14:00] LABS: Alanine Aminotransferase 13 U/L (0-31); Albumin Level 4.0 g/dL (3.5-5.0); Alkaline Phosphatase 74 U/L (39-117); Anion Gap 13 (12-20); Aspartate Amino Transferase 23 U/L (5-31); Blood Urea Nitrogen 22 mg/dL (9-16); Calcium 9.6 mg/dL (8.4-10.2); Carbon Dioxide 23 mmol/L (22-29); Chloride 108 mmol/L (96-108); Cholesterol 230 mg/dL (<200); Estimated Glomerular Filt Rate 41; HDL Cholesterol 46 mg/dL (>40); Potassium 4.1 mmol/L (3.3-5.1); Sodium 140 mmol/L (135-145); Total Protein 6.8 g/dL (6.5-8.0); Triglycerides 167 mg/dL (<150)
== END 2025-06-04 09:48 | disposition home or self-care (01) ==
LOC: HO.HMGCLDS 09:47
PROVIDERS: PCP Internal Medicine; Visit Provider Internal Medicine
DX: E78.5 Hyperlipidemia, unspecified (principal); E55.9 Vitamin D deficiency, unspecified; I12.9 Hypertensive chronic kidney disease with stage 1 through stage 4 chronic kidney disease, or unspecified chronic kidney disease; N18.30 Chronic kidney disease, stage 3 unspecified; I48.91 Unspecified atrial fibrillation; R60.9 Edema, unspecified
CPT/HCPCS: 36415; 80053; 80061; 82306; 84443; 85025

== ENCOUNTER 2025-06-11 12:52 | Outpatient (AMB) | payer OTHER, SELFPAY ==
--- OUTSIDE RECORDS SUMMARY | 2024-12-28 07:30 | XMS_ITS ---
Author Organization [facility] Address [address] [place] [address] Care Team Providers Care Facility Manager Name Role Phone Viola Mack MD Primary Care Provider Unavaila Katharina Lawrence Unavailable [phone] Saha Encounters Encounter Location Date Provider Diagnosis [facility] [address] [place] [address] 12/28/2024 Katharina Rj Plan Of Treatment Next Appt Details Provider Name:Katharina De La Rosa , 07/06/2025 01:30:00 PM, [address] [facility], [place], [address], Progress Notes * Radha BLANDON EDOB: (74 yo F)Acc No.[id number]:12/28/2024 Progress Note Patient: Marika TOUSSAINT Radha Taylor Provider: Mairka De La Rosa DPM :1950 A ge:74 Y S ex:Female Date:12/28/2024 Address:[address] Pcp:Viola Mack MD Subjective: * Chief Complaints: [...] DPM Date: 0 12/28/2024 Generated for William Mckeon/Javi on: 0 06/11/2025 01:05 PM EDT
--- OUTSIDE RECORDS SUMMARY | 2025-03-29 06:30 | XMS_ITS ---
Author Organization [facility] Address [address] [place] [address] Care Team Providers Care Sprayer Hand Name Role Phone Viola Mack MD Primary Care Provider Unavaila marc De La Rosa Katharina Unavailable [phone] REASON FOR VISIT Seen Sooner Encounters Encounter Location Date Provider Diagnosis [facility] [address] [place] [address] 03/29/2025 Katharina Rj Plan Of Treatment Next Appt Details Provider Name:Katharina De La Rosa , 07/06/2025 01:30:00 PM, [address] [facility], [place], [address], Progress Notes * Radha BLANDON EDOB: (74 yo F)Acc No.[id number]:03/29/2025 Progress Note Patient: Marika TOUSSAINT Radha Taylor Provider: Marika De La Rosa DPM :1950 A ge:74 Y S ex:Female Date:03/29/2025 Address:[place] Pcp:Viola Mack MD Subjective: * Chief Complaints: [...] DPM Date: 0 03/29/2025 Generated for William Mckeon/Javi on: 0 06/11/2025 01:05 PM EDT
--- OUTSIDE RECORDS SUMMARY | 2025-06-03 10:45 | XMS_ITS ---
Author Organization [facility] Address [address] [place] [address] Care Team Providers Care District Fire Chief Name Role Phone Viola Mack MD Primary Care Provider Unavaila Katharina Lawrence Unavailable [phone] Saha Encounters Encounter Location Date Provider Diagnosis [facility] [address] [place] [address] 06/03/2025 Katharina Rj Plan Of Treatment Next Appt Details Provider Name:Katharina De La Rosa , 07/06/2025 01:30:00 PM, [address] [facility], [place], [address], Progress Notes * Radha BLANDON EDOB: (74 yo F)Acc No.[id number]:06/03/2025 Progress Note Patient: Marika TOUSSAINT Radha Taylor Provider: Marika De La Rosa DPM :1950 A ge:74 Y S ex:Female Date:06/03/2025 Address:[place] [place] Pcp:Viola Mack MD Subjective: * Chief Complaints: [...] 06/03/2025 Generated for William Schuster on: 0 06/11/2025 01:06 PM EDT
--- OUTSIDE RECORDS SUMMARY | 2025-06-11 13:06 | XMS_ITS | Clinical Summary ---
Author Organization [facility] Address [address] [facility] [address] [place] [address] Phone Care Team Providers Care Warehouse Specialist Name Role Phone Viola Mack MD Primary Care Provider [phone] Allergies Active Allergy Reactions Criticality Noted Date [...] Office Visit [facility] [address] [phone] Justin Espitia MD [facility] [phone] Health Maintenance Due Date Last Done Comments Breast Cancer Screening 1950 Pneumococcal Vaccine: 50+ Ye ars (1 of 2 - PCV) 1970 Colorectal Cancer Screening: Annual FOBT 2000 Colorectal Cancer Screening: Colonoscopy 2000 Colorectal Cancer Screening: Sigmoidoscopy 2000 Influenza Vaccine (#1) 2025 Hepatitis B Vaccine Aged Out No longe r eligible based on patient's age to complete this topic Insurance [facility] [place] [id number] Care Teams Warehouse Specialist Relationship Specialty Start Date End Date Viola Mack MD [address] [facility] [place] [address] PCP - General Internal Medicine 08/21/22
--- OUTSIDE RECORDS SUMMARY | 2025-06-11 13:06 | XMS_ITS | Clinical Summary ---
Author Organization [address] Address [address] [place] [address] Phone Care Team Providers Care Administrator Pesticide Name Role Phone Viola Mack MD Primary Care Provider Encounters Date Type Department Care Team Description 05/21/2025 1:30 PM EDT - 05/21/2025 11:59 PM EDT Hospital Encounter Radiology Department - [address] [phone] Discharge Disposition: Home or Self Care 05/21/2025 1:30 PM EDT - 05/21/2025 11:59 PM EDT Hospital Encounter Radiology Department - [address] [phone] Screening mammogram for breast cancer Discharge Disposition: Home or Self Care from Last 3 Months Surgical History Surgery Date Site/Laterality Comments OTHER SURGICAL HISTORY 1999 PROCEDURE: [place] ERCP DESTRUCTION/LITHOTRIPSY CALCULI ANY METHOD OTHER SURGICAL HISTORY 03/22 PROCEDURE: MAMMOGRAM COLONOSCOPY 01/07 PROCEDURE: [place] COLONOSCOPY STOMA DX INCLUDING COLLJ SPEC SPX; COMMENT: [facility] COLONOSCOPY 02/11/2014 PROCEDURE: [place] COLONOSCOPY FLX DX W/COLLJ SPEC WHEN PFRMD; COMMENT: normal Medical History Medical History Date Comments Calculus of kidney DX:Calculus o f kidney Dermatophytosis of nail 04/04/2006 DX:[place] tophytosis of nail Primary localized osteoarthr osis, [...] 09/15/2022 Social Influencers of Health Screening 09/15/2022 Depression Screening 10/07/2024 COVID-19 Vaccine ( season) 2025 12/29/2020, 12/01/2020 Influenza Vaccine (#1) 2025 Hypertension/CHF/CAD Annual BMP Blood Test 01/27/2026 01/27/2025 Breast Cancer Screening 05/21/2027 05/21/20, 05/07/2024, 05/07/2024, Additional history exists Osteoporosis Screening [...] is recommended in 1 year. MAMMO LOCATION: [facility], [address] [place] [address], [address], . -------- FINAL REPORT -------- Dictated By: Leena Tejeda Dictated Date: 05/24/2025 18:09 ET Assigned Physician: Leena Tejeda Reviewed and Electronically Signed By: Leena Tejeda Signed Date: 05/24/2025 18:09 ET Workstation ID: [id number] Transcribed By: Self Edit Transcribed Date: 05/24/2025 [...] is recommended in 1 year. MAMMO LOCATION: [facility], [address] [place] [address], [address], . -------- FINAL REPORT -------- Dictated By: Leena Tejeda Dictated Date: 05/24/2025 18:09 ET Assigned Physician: Leena Tejeda Reviewed and Electronically Signed By: Leena Tejeda Signed Date: 05/24/2025 18:09 ET Workstation ID: [id number] Transcribed By: Self Edit Transcribed Date: 05/24/2025 [...] classified as having normal bone density. [facility] Department of Internal Medicine recommends using National [...] beclassified as having normal bone density. [facility] Department of Internal Medicine recommendsusing National Osteoporosis [...] to Health [place] [id number] [facility] [place] [id number] Care Teams Administrator Pesticide Relationship Specialty Start Date End Date Viola Mack MD [address] [facility] [address] PCP - General Internal Medicine 05/21/25
--- OUTSIDE RECORDS SUMMARY | 2025-06-11 13:06 | XMS_ITS | Patient Health Record ---
Author Organization [facility] Address [address] [facility] [address] [place] [address] Support Name Relationship Address Phone DEVORA DUBOSE Guarantor Unknown [phone] Reason For Referral No Information Medications Medication SIG (Take, Route, Fr equency, Duration) Notes Start Date End Date Status Fluconazole 50MG 5ML ORAL WEEKLY; Duration: 7 Cas-MJ 12/05 Active Immunizations Vaccine Route Administration Date Status Comme nts Influenza, live, intranasal Intramuscular 12/19/2011 Pendi ng Problems Problem Type SNOMED Code ICD Code Onset Dates Problem Status W/U Status Risk Notes Problem Gynecological examination normal (583388730864950) Routine gynecological examination (V72.31) Active confirmed Diag Plan Of Treatment No Information Insurance Providers Payer Name Payer Address Payer Phone Subscriber Number Group Number Insured Name Patient Relationship to Insured Coverage Start Date Coverage End Date [employer] [address] [place], [place] [id number] DEVORA DUBOSE Self - patient is the insured
--- OUTSIDE RECORDS SUMMARY | 2025-06-11 13:06 | XMS_ITS | Patient Health Record ---
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.511) Active confirmed Problem Acquired hammer toe of right foot (8771891035128734 ) Other hammer toe(s) (acquired), right foot (M20.41) Active confirmed Problem Acquired hammer toe of left foot (5979295894588839 ) Other hammer toe(s) (acquired), left foot (M20.42) Active confirmed Problem Localized, primary osteoarthritis of the ankle and/or foot (408940218) Arthritis of joint of lesser toe, left (M19.072) Active confirmed Problem Pressure injury of right foot stage I (disorder) (772101044108063) Pressure injury of right foot, stage 1 (L89.891) Active confirmed Response to treatment - Improvement Vital Signs Blood pressure diastolic 70 mm Hg 02/03/2025 Height 5ft 8in in 02/03/2025 Blood pressure systolic 130 mm Hg 02/03/2025 Weight 265 lbs 02/03/2025 BMI 40.29 kg/m2 02/03/2025 Procedures Procedure Date Ordered Date Performed Result Body Sit e 56003-YNWDETQ NAIL, 6 OR MORE 06/15/2024 N/A 70931-Ngqbdaoj Plate 06/15/2024 N/A 02114- Debride <25 sq cm 06/15/2024 N/A 90617-YTCYQIW NAIL, 6 OR MORE 09/21/2024 N/A 84811-Imuopxhm Plate 09/21/2024 N/A 95561- Debride <25 sq cm 09/21/2024 N/A 15822-DSHAOIM NAIL, 6 OR MORE 02/03/2025 N/A Encounters Encounter Location Date Provider Diagnosis [address] [phone] 06/15/2024 Katharina Black Tinea unguium B35.1 ; Pressure injury of right foot, stage 1 L89.891 ; Pain in right toe(s) M79.674 ; Pain in left toe(s) M79.675 and Ingrown nail L60.[address] [phone] 09/21/2024 Katharina Black Pressure injury of right foot, stage 1 L89.891 ; Edema, lower extremity R60.0 ; Tinea unguium B35.1 ; Pain in right toe(s) M79.674 ; Pain in left toe(s) M79.675 and Ingrown nail L60.[address] [phone] 02/03/2025 Katharina Black Tinea unguium B35.1 ; [...] Treatment Pending Test Test Name Order Date 39672-ASKNBEX NAIL, 6 OR MORE 08/07/2021 64502-YQPRLDJ NAIL, 6 OR MORE 12/11/2021 44500-HRFNDMB NAIL, 6 OR MORE 04/16/2022 97085-XGXECQN NAIL, 6 OR MORE 08/20/2022 31135-XPQLTFM NAIL, 6 OR MORE 12/31/2022 96100-ILPDVUY NAIL, 6 OR MORE 05/06/2023 88018-QETJNYE NAIL, 6 OR MORE 11/14/2023 91138-KABZVJK NAIL, 6 OR MORE 02/24/2024 26039-UZDAHFJ NAIL, 6 OR MORE 06/15/2024 15420-HRKTERV NAIL, 6 OR MORE 09/21/2024 69868-NJGABOA NAIL, 6 OR MORE 02/03/2025 26463-Aphrpzkt Plate 09/21/2024 57394-Xedzpjmk Plate 05/06/2023 43881-Aksjrwcm Plate 06/15/2024 18489-Cmsbattr Plate 12/31/2022 32497- Debride <25 sq cm 12/11/2021 63140- Debride <25 sq cm 05/06/2023 44684- Debride <25 sq cm 12/31/2022 28167- Debride <25 sq cm 08/20/2022 24475- Debride <25 sq cm 04/16/2022 56173- Debride <25 sq cm 09/04/2021 43478- Debride <25 sq cm 04/16/2018 84590- Debride <25 sq cm 05/25/2021 88826- Debride <25 sq cm 08/07/2021 38253- Debride <25 sq cm 09/21/2024 63157- Debride <25 sq cm 06/15/2024 66417,W5547-EWB TENDON SHEATH/LIGAMENT 1 10/07/2020 39195,A5984-XIG TENDON SHEATH/LIGAMENT 0 05/25/2021 29056,R1295-XIZ TENDON SHEATH/LIGAMENT 1 11/04/2020 Next Appt Details Provider Name:Katharina De La Rosa , 07/06/2025 01:30:00 PM, [address] [facility], [place], [address], Insurance Providers Payer Name Payer Address Payer Phone Subscriber Number Group Number Insured Name Patient Relationship to Insured Coverage Start Date Coverage End Date [facility]) [address] [place] [id number] [phone] [id number] [facility] Radha Blandon Self - patient is the insured Medical (General) History Medical History History ICD Code Anemia Anxiety disorder Arthritis Back,Hip,and Knee pain Chicken pox High blood pressure Kidney stones Measles Mumps Broken bones Sciatica A fib Surgical History Surgery Date(Month/Year) Lithotripsy 2019 eye surgery, lenses 12/23 Hospitalization History Reason Date(Month/[place] [facility] 10/11[place]23
[2025-06-11 13:11] VITALS: BP 124/70; PULSE 62; RESP 18; TEMP 36.6; O2SAT 98; BMI 42.3
--- NOTE | 2025-06-11 13:11 | MHC.PC.OV ---
Vital Signs 06/11/25 13:11 Height 5 ft 8 in Weight 278 lb BMI 42.3 BP 124/70 Blood Pressure Location Lt brachial Position Sitting Respiration 18 Pulse 62 Pulse Source Pulse Oximeter Temp 97.8 F Temp Source Oral Pulse Oximetry (%) 98 Oxygen Delivery Method Room Air Intake Visit Reasons: 1m follow up Intake Note: Pt is here today for 1 month follow up visit. Allergies metoprolol Allergy (Severe, Verified 06/11/25 13:26) Rash doxycycline Adverse Reaction (Intermediate, Verified 06/11/25 13:26) Abdominal Pain methylprednisolone Adverse Reaction (Intermediate, Verified 06/11/25 13:26) rapid heart rate erythromycin base Adverse Reaction (Unknown, Verified 06/11/25 13:26) upset stomach nausea dapagliflozin (From [facility]) Adverse Reaction (Verified 06/11/25 13:26) candidiasis Tobacco use date assessed: 06/11/25 Fall risk assessment: No Falls in past year Last assessed Fall Risk: 06/11/25 Dental Screening Dental Screen Date: 03/08/25 HPI 1m follow up HPI Details Patient presents for the follow-up on hypertension chronic lower extremity edema hyperlipidemia chronic kidney disease stage 3. Patient reports improved lower extremities swelling when taking 40 mg of furosemide but because of increased urination she has been alternating 40 with 20 mg every other day. [facility] Medical History Atrial fibrillation CKD (chronic kidney disease) stage 3, GFR 30-59 ml/min SHARIF (obstructive sleep apnea) Retrognathia Chest pain Morbid obesity Hyperlipemia Annual physical exam Mammogram normal DJD (degenerative joint disease), lumbar Anxiety HTN (hypertension) Surgical History H/O bilateral cataract extraction H/O lithotripsy H/O colonoscopy Family History Father No problems noted. Mother HTN (hypertension) Social History Housing: House Alcohol intake: current Alcohol intake frequency: holidays/special occasions only Patient Tobacco Use Status: Never used Tobacco e-Cigarette/Vaping Use: Never Used Second Hand Smoke Exposure: No service: No Current occupational status: retired Cognitive needs: No Hearing needs: No Vision needs: Yes Questionnaire Thrive Questionnaire Date Thrive assessed: 12/03/24 I am a: Patient What is your living situation today?: I have a steady place to live Within the past 12 months, did the food you bought not last and you didn't have the money to get more?: Never true Within the past 12 months, did you worry whether your food would run out before you got money to buy more?: Never true Do you have trouble paying for medicines?: No Do you have trouble getting transportation to medical appointments?: No Do you have trouble paying your heating and electricity bill?: No Do you have trouble taking care of your child, family member or friend?: No Do you have trouble with day-to-day activities such as bathing, preparing meals, shopping, managing finances, etc.?: No Are you currently unemployed and looking for a job?: No Are you interested in more education?: No Please select the resources that you would like help with: None Currently or been in a relationship where the following occur: No concerns reported THRIVE Score: 0 HANNA-7 AMB Questionnaire HANNA-7 Date HANNA - 7 assessed: 03/08/25 Source: Developed by Drs. Gopi Baker, Stefani Doyle, Alfonso Carey and colleagues, with an educational jeancarlos from [employer]. Review of Systems Const All systems reviewed & are unremarkable except as noted in HPI and below ENT Reports no additional complaints Resp Reports no additional complaints GI Reports no additional complaints Reports no additional complaints Physical exam (Primary Care) Vital Signs: Last Vital Signs Temp 97.8 F 06/11/25 13:11 Pulse 62 06/11/25 13:11 Resp 18 06/11/25 13:11 BP 124/70 06/11/25 13:11 Pulse Ox 98 06/11/25 13:11 Oxygen Delivery Method Room Air 06/11/25 13:11 BMI result Body Mass Index 42.3 Tobacco/Smoking Status: Tobacco use Status Tobacco use date assessed 06/11/25 06/11/25 13:27 Patient Tobacco Use Status Never used Tobacco 06/11/25 13:12 e-Cigarette/Vaping Use Never Used 06/11/25 13:12 Thrive Assessment: Date of Thrive Assessment Date Thrive assessed 12/03/24 06/11/25 13:12 Currently or been in a relationship where the following occur: No concerns reported Const General: no acute distress HENMT Head: Yes normal to inspection Mouth: Normal oral and palatal mucosa present Eyes General: appearance normal, both eyes and all related structures Neck Neck: Yes supple Resp Effort & Inspection: normal respiratory effort Auscultation: clear to auscultation bilaterally Cardio Rhythm: regular rhythm Heart sounds: S1 normal heart sound present and S2 normal heart sound present Extrem Other: Plus two pitting edema bilaterally Coding Level of Care Code Est Pt Level 4 (87947) Diagnoses HTN (hypertension) I10 Atrial fibrillation I48.91 Hyperlipemia E78.5 Morbid obesity E66.01 CKD (chronic kidney disease) stage 3, GFR 30-59 ml/min N18.30 Assessment & Plan Assessment & Plan (1) HTN (hypertension): Code(s): I10 - Essential (primary) hypertension Category: Medical Plan: Continue current medications (2) Atrial fibrillation: Comment: 10/11/23 ER visit, started on Eliquis, metoprolol ? allergic reaction, rash Code(s): I48.91 - Unspecified atrial fibrillation Category: Medical Plan: Continue Eliquis (3) Hyperlipemia: Comment: Patient refuses statin Code(s): E78.5 - Hyperlipidemia, unspecified Category: Medical Plan: Continue low-cholesterol diet (4) Morbid obesity: Comment: BMI= 42.0 SHE HAS CHRONIC LYMPHEDEMA AND STASIS EDEMA , patient's insurance does not cover GLP 1 agonist for weight loss Code(s): E66.01 - Morbid (severe) obesity due to excess calories Category: Medical Plan: Decrease caloric intake increase physical activity and weight loss discussed with the pt (5) CKD (chronic kidney disease) stage 3, GFR 30-59 ml/min: Comment: started Farxiga 09/28 but stopped on 10/20/23 because of rash, patient's backup administrative coordinator did not recommend SGTP2 inhibitor Code(s): N18.30 - Chronic kidney disease, stage 3 unspecified Category: Medical Plan: Monitor renal function avoid nephrotoxins
== END 2025-06-11 14:46 | disposition home or self-care (01) ==
LOC: HO.HMCC 12:53
PROVIDERS: PCP Internal Medicine; Visit Provider Internal Medicine
DX: I12.9 Hypertensive chronic kidney disease with stage 1 through stage 4 chronic kidney disease, or unspecified chronic kidney disease (principal); I48.91 Unspecified atrial fibrillation; E66.01 Morbid (severe) obesity due to excess calories; N18.30 Chronic kidney disease, stage 3 unspecified; Z68.41 Body mass index [BMI] 40.0-44.9, adult; E78.5 Hyperlipidemia, unspecified

== ENCOUNTER 2025-06-14 12:47 | Outpatient (AMB) | payer OTHER, SELFPAY ==
--- OUTSIDE RECORDS SUMMARY | 2024-12-28 07:30 | XMS_ITS ---
Author Organization [facility] Address [address] [place] [address] Care Team Providers Care Veneer Jointer Name Role Phone Viola Mack MD Primary Care Provider Unavaila Katharina Lawrence Unavailable [phone] Saha Encounters Encounter Location Date Provider Diagnosis [facility] [address] [place] [address] 12/28/2024 Katharina Rj Plan Of Treatment Next Appt Details Provider Name:Katharina De La Rosa , 07/06/2025 01:30:00 PM, [address] [facility], [place], [address], Progress Notes * Radha BLANDON EDOB: (74 yo F)Acc No.[id number]:12/28/2024 Progress Note Patient: Marika TOUSSAINT Radha Taylor Provider: Marika De La Rosa DPM :1950 A ge:74 Y S ex:Female Date:12/28/2024 Address:[address] [place] Pcp:Viola Mack MD Subjective: * Chief Complaints: [...] DPM Date: 0 12/28/2024 Generated for William Schuster on: 0 06/14/2025 02:54 PM EDT
--- OUTSIDE RECORDS SUMMARY | 2025-03-29 06:30 | XMS_ITS ---
Author Organization [facility] Address [address] [place] [address] Care Team Providers Care Engineering Patternmaker Name Role Phone Viola Mack MD Primary Care Provider Unavaila marc De La Rosa Katharina Unavailable [phone] REASON FOR VISIT Seen Sooner Encounters Encounter Location Date Provider Diagnosis [facility] [address] [place] [address] 03/29/2025 Katharina Rj Plan Of Treatment Next Appt Details Provider Name:Katharina De La Rosa , 07/06/2025 01:30:00 PM, [address] [facility], [place], [address], Progress Notes * Radha BLANDON EDOB: (74 yo F)Acc No.[id number]:03/29/2025 Progress Note Patient: Marika TOUSSAINT Radha Taylor Provider: Marika De La Rosa DPM :1950 A ge:74 Y S ex:Female Date:03/29/2025 Address:[place] Pcp:Viola Mack MD Subjective: * Chief Complaints: [...] DPM Date: 0 03/29/2025 Generated for William Schuster on: 0 06/14/2025 02:54 PM EDT
--- OUTSIDE RECORDS SUMMARY | 2025-06-03 10:45 | XMS_ITS ---
Author Organization [facility] Address [address] [place] [address] Care Team Providers Care Management Advisor Name Role Phone Viola Mack MD Primary Care Provider Unavaila Katharina Lawrence Unavailable [phone] Saha Encounters Encounter Location Date Provider Diagnosis [facility] [address] [place] [address] 06/03/2025 Katharina Rj Plan Of Treatment Next Appt Details Provider Name:Katharina De La Rosa , 07/06/2025 01:30:00 PM, [address] [facility], [place], [address], Progress Notes * Radha BLANDON EDOB: (74 yo F)Acc No.[id number]:06/03/2025 Progress Note Patient: Marika TOUSSAINT Radha Taylor Provider: Marika De La Rosa DPM :1950 A ge:74 Y S ex:Female Date:06/03/2025 Address:[address] [place] Pcp:Viola Mack MD Subjective: * Chief Complaints: [...] DPM Date: 0 06/03/2025 Generated for William Schuster on: 0 06/14/2025 02:55 PM EDT
[2025-06-14 12:52] VITALS: BP 154/76; PULSE 64; BMI 42.5
--- NOTE | 2025-06-14 12:52 | MHC.OFFVIS ---
Vital Signs 06/14/25 12:52 Height 5 ft 8 in Weight 279 lb 8.738 oz BMI 42.5 BP 154/76 H Blood Pressure Location Rt brachial Pulse 64 Pulse Source Pulse Oximeter Intake Visit Reasons: 6m follow up Accompanied by: Self / Same As Patient Allergies metoprolol Allergy (Severe, Verified 06/14/25 12:55) Rash doxycycline Adverse Reaction (Intermediate, Verified 06/14/25 12:55) Abdominal Pain methylprednisolone Adverse Reaction (Intermediate, Verified 06/14/25 12:55) rapid heart rate erythromycin base Adverse Reaction (Unknown, Verified 06/14/25 12:55) upset stomach nausea dapagliflozin (From [facility]) Adverse Reaction (Verified 06/14/25 12:55) candidiasis Medication List - Last Reconciled 06/14/25 by Daniella Murphy, EMD SPECIAL EDUCATION TEACHER-C amlodipine 2.5 mg PO DAILY apixaban (Eliquis) 5 mg PO BID atenolol 50 mg PO DAILY desonide 0.05% topical fluticasone propionate 50 mcg/actuation 1 spray intranasal BID PRN furosemide 40 mg PO .QD PRN glucosamine sulfate 750 mg PO ONCE lisinopril 20 mg PO DAILY loratadine (Allergy Relief (loratadine)) 10 mg PO DAILY multivitamin 1 tab PO DAILY HPI HPI 6m follow up: Details: Radha is a 74-year-old female with past medical history of obesity, hypertension, hyperlipidemia, paroxysmal atrial fibrillation, mild obstructive sleep apnea who presents for follow-up Today she reports she has been feeling well since her last visit in December. She has had no concerns for atrial fibrillation. She says at times when she lays down it feels like it is going to start but then it does not. She denies any bleeding issues with Eliquis use. She denies shortness of breath, chest discomfort, PND, orthopnea. No lightheadedness, presyncope, syncope, falls. She ambulates with a walker. She continues to have issues with bilateral knee pain and low back pain. She is taking her meds as directed. 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 [facility] Medical History Atrial fibrillation CKD (chronic kidney disease) stage 3, GFR 30-59 ml/min SHARIF (obstructive sleep apnea) Retrognathia Chest pain Morbid obesity Hyperlipemia Annual physical exam Mammogram normal DJD (degenerative joint disease), lumbar Anxiety HTN (hypertension) Surgical History H/O bilateral cataract extraction H/O lithotripsy H/O colonoscopy Family History Father No problems noted. Mother HTN (hypertension) Social History Housing: House Alcohol intake: current Alcohol intake frequency: holidays/special occasions only Patient Tobacco Use Status: Never used Tobacco e-Cigarette/Vaping Use: Never Used Second Hand Smoke Exposure: No service: No Current occupational status: retired Cognitive needs: No Hearing needs: No Vision needs: Yes Review of Systems Const All systems reviewed & are unremarkable except as noted in HPI and below Denies daytime sleepiness, Denies difficulty sleeping, Denies snoring, Denies stops breathing during sleep and Denies weakness Card Denies chest pain, Denies rapid heart rate, Denies irregular heart rhythm, Denies claudication, Denies leg edema, Denies lightheadedness, Denies palpitations, Denies dyspnea, Denies dyspnea on exertion, Denies orthopnea, Denies paroxysmal nocturnal dyspnea and Denies slow heart rate Resp Denies cough, Denies dyspnea, Denies dyspnea on exertion and Denies snoring GI Reports no additional complaints, Denies hematochezia, Denies change in stool character and Denies dyspepsia Musc Denies abnormal gait, Denies muscle weakness and Denies numbness Neuro Denies abnormal gait, Denies numbness and Denies weakness Endo Denies palpitations Physical Exam Vital Signs: Last Vital Signs Pulse 64 06/14/25 12:52 BP 154/76 H 06/14/25 12:52 BMI result Body Mass Index 42.5 Const Other: morbid obesity General: cooperative, healthy appearing, comfortable and no acute distress Orientation/consciousness: patient oriented x3 Neck Neck: Yes normal visual inspection and Yes no JVD Resp Effort & Inspection: normal respiratory effort Auscultation: clear to auscultation bilaterally, no rales, no rhonchi and no wheezes Cardio Rate: regular rate Rhythm: regular rhythm Heart sounds: S1 normal heart sound present, S2 normal heart sound present, no murmurs and no rubs Neuro General: patient oriented x3 Extrem General: Yes normal to inspection and No no pedal edema Psych Appearance: grossly normal Mental Status: mental status grossly normal Speech and movement: Normal speech and movement present Assessment & Plan Assessment & Plan (1) Atrial fibrillation: Comment: 10/11/23 ER visit, started on Eliquis, metoprolol ? allergic reaction, rash Code(s): I48.91 - Unspecified atrial fibrillation Category: Medical Plan: History of paroxysmal atrial fibrillation, 1st noted Oct 2023. At that time she was put on metoprolol for heart rate control and Eliquis for anticoagulation. She had a rash with metoprolol was changed to atenolol. She has done well since that time with no known recurrent AFib. Last echo 09/2022 showed normal EF, atriums and valves not well visualized. Sleep study shows mild obstructive sleep apnea. She has been evaluated by pulmonology and instructed to sleep on her side. Patient states she will not wear a mask at nighttime. Pulse is regular on exam today, clinically in sinus rhythm. Continue current med management. Cardiology follow-up 6 months, sooner if needed. (2) Sleep apnea: Code(s): G47.30 - Sleep apnea, unspecified Category: Medical Plan: Sleep study showing mild obstructive sleep apnea. It can be treated with conservative measures however she does have newer finding of atrial fibrillation and she has obesity. She was referred pulmonology for evaluation/ treatment of sleep apnea. She tells me she will not be able to wear a mask. She is treating her sleep apnea with weight loss and trying to sleep on her side instead of her back. (3) HTN (hypertension): Code(s): I10 - Essential (primary) hypertension Category: Medical Plan: Blood pressure goal less than 130/80. Mildly elevated today. Recheck done by me 150/68. She reports having pain in each shoulder which may contribute to her elevated readings. It was normal at her PCP visit 3 days ago. Continue amlodipine, atenolol, lisinopril. She does have Lasix that she uses p.r.n. for leg swelling. She has follow-up with PCP in September. No med changes made at this time. Plan Time spent on chart review, documentation, interview and assessment Medications: Changed From furosemide 40 mg (2 x 20 mg) PO .QD 180 tabs 1RF R60.0 - Localized edema To furosemide 40 mg PO .QD PRN R60.0 - Localized edema Coding Level of Care Code Est Pt Level 4 (38310) Complex EM visit Add On G2211 Diagnoses Atrial fibrillation I48.91 Sleep apnea G47.30 HTN (hypertension) I10 Time Spent (min) 28
--- OUTSIDE RECORDS SUMMARY | 2025-06-14 14:55 | XMS_ITS | Patient Health Record ---
Author Organization [facility] Address [address] [place] [address] Support Name Relationship Address Phone DEVORA DUBOSE Guarantor Unknown [phone] Reason For Referral No Information Medications Medication SIG (Take, Route, Fr equency, Duration) Notes Start Date End Date Status Fluconazole 50MG 5ML ORAL WEEKLY; Duration: 7 Cas-MJ 12/05 Active Immunizations Vaccine Route Administration Date Status Comme nts Influenza, live, intranasal Intramuscular 12/19/2011 Pendi ng Problems Problem Type SNOMED Code ICD Code Onset Dates Problem Status W/U Status Risk Notes Problem Gynecological examination normal (357905495752311) Routine gynecological examination (V72.31) Active confirmed Diag Plan Of Treatment No Information Insurance Providers Payer Name Payer Address Payer Phone Subscriber Number Group Number Insured Name Patient Relationship to Insured Coverage Start Date Coverage End Date [facility] INDEMNITY PLAN [address] [place], [place] [id number] DEVORA DUBOSE Self - patient is the insured
--- OUTSIDE RECORDS SUMMARY | 2025-06-14 14:56 | XMS_ITS | Clinical Summary ---
Author Organization [address] Address [address] [place] [address] Phone Care Team Providers Care Wreath Machine Operator Name Role Phone Viola Mack MD Primary Care Provider [phone] Encounters Date Type Department Care Team Description 05/21/2025 1:30 PM EDT - 05/21/2025 11:59 PM EDT Hospital Encounter Radiology Department - [address] [phone] Discharge Disposition: Home or Self Care 05/21/2025 1:30 PM EDT - 05/21/2025 11:59 PM EDT Hospital Encounter Radiology Department - [address] [phone] Screening mammogram for breast cancer Discharge Disposition: Home or Self Care from Last 3 Months Surgical History Surgery Date Site/Laterality Comments OTHER SURGICAL HISTORY 1999 PROCEDURE: ID ERCP DESTRUCTION/LITHOTRIPSY CALCULI ANY METHOD OTHER SURGICAL HISTORY 03/22 PROCEDURE: MAMMOGRAM COLONOSCOPY 01/07 PROCEDURE: ID COLONOSCOPY STOMA DX INCLUDING COLLJ SPEC SPX; COMMENT: [facility] COLONOSCOPY 02/11/2014 PROCEDURE: ID COLONOSCOPY FLX DX W/COLLJ SPEC WHEN PFRMD; COMMENT: normal Medical History Medical History Date Comments Calculus of kidney DX:Calculus o f kidney Dermatophytosis of nail 04/04/2006 DX:Bertrand tophytosis of nail Primary localized osteoarthr osis, [...] is recommended in 1 year. MAMMO LOCATION: [facility], [address] [place] [address], [address], . -------- FINAL REPORT -------- Dictated By: Leena Tejeda Dictated Date: 05/24/2025 18:09 ET Assigned Physician: Leena Tejeda Reviewed and Electronically Signed By: Leena Tejeda Signed Date: 05/24/2025 18:09 ET Workstation ID: [id number] Transcribed By: Self Edit Transcribed Date: 05/24/2025 [...] is recommended in 1 year. MAMMO LOCATION: [facility], [address] [place] [address], [address], . -------- FINAL REPORT -------- Dictated By: Leena Tejeda Dictated Date: 05/24/2025 18:09 ET Assigned Physician: Leena Tejeda Reviewed and Electronically Signed By: Leena Tejeda Signed Date: 05/24/2025 18:09 ET Workstation ID: [id number] Transcribed By: Self Edit Transcribed Date: 05/24/2025 [...] classified as having normal bone density. [facility] Department of Internal Medicine recommends using [...] beclassified as having normal bone density. [facility] Department of Internal Medicine recommendsusing National [...] to Health [place] [id number] [facility] [place] [id number] Care Teams Wreath Machine Operator Relationship Specialty Start Date End Date Viola Mack MD [address] [place] [address] PCP - General Internal Medicine 05/21/25
--- OUTSIDE RECORDS SUMMARY | 2025-06-14 14:56 | XMS_ITS | Clinical Summary ---
Author Organization [facility] Address [address] [place] [address] Phone Care Team Providers Care Physicist Cryogenics Name Role Phone Viola Mack MD Primary Care Provider [phone] Allergies Active Allergy Reactions Criticality Noted Date [...] Office Visit [facility] [address] [id number] Justin Espitia MD [facility] [address] [phone] Health Maintenance Due Date Last Done Comments Breast Cancer Screening 1950 Pneumococcal Vaccine: 50+ Ye ars (1 of 2 - PCV) 1970 Colorectal Cancer Screening: Annual FOBT 2000 Colorectal Cancer Screening: Colonoscopy 2000 Colorectal Cancer Screening: Sigmoidoscopy 2000 Influenza Vaccine (#1) 2025 Hepatitis B Vaccine Aged Out No longe r eligible based on patient's age to complete this topic Insurance [facility] [place] [place] [id number] Care Teams Physicist Cryogenics Relationship Specialty Start Date End Date Viola Mack MD [address] [facility] [place] [address] PCP - General Internal Medicine 08/21/22
--- OUTSIDE RECORDS SUMMARY | 2025-06-14 14:56 | XMS_ITS | Patient Health Record ---
Author Organization [facility] Address [address] [place] [address] Care Team Providers Care Sock Boarder Name Role Phone Viola Mack MD Primary Care Provider Katharina Adams Unavailable [phone] Allergies Allergen (clinical drug ingredient) Drug/Non Drug [...] primary osteoarthritis of the ankle and/or foot (432944083) Primary osteoarthrit is, left ankle and foot (M19.072) Active confirmed Problem Non-pressure chronic ulcer of other part of right foot limited to breakdown of skin (L97.511) Active confirmed Problem Acquired hammer toe of right foot (7775661921232427 ) Other hammer toe(s) (acquired), right foot (M20.41) Active confirmed Problem Acquired hammer toe of left foot (2946672202897399 ) Other hammer toe(s) (acquired), left foot (M20.42) Active confirmed Problem Localized, primary osteoarthritis of the ankle and/or foot (602706082) Arthritis of joint of lesser toe, left (M19.072) Active confirmed Problem Pressure injury of right foot stage I (disorder) (432307359247473) Pressure injury of right foot, stage 1 (L89.891) Active confirmed Response to treatment - Improvement Vital Signs Blood pressure diastolic 70 mm Hg 02/03/2025 Height 5ft 8in in 02/03/2025 Blood pressure systolic 130 mm Hg 02/03/2025 Weight 265 lbs 02/03/2025 BMI 40.29 kg/m2 02/03/2025 Procedures Procedure Date Ordered Date Performed Result Body Sit e 45762-CCOPNQM NAIL, 6 OR MORE 06/15/2024 N/A 69093-Ogqnswoo Plate 06/15/2024 N/A 10625- Debride <25 sq cm 06/15/2024 N/A 58424-RRAQZWW NAIL, 6 OR MORE 09/21/2024 N/A 09538-Hmlykvrs Plate 09/21/2024 N/A 43480- Debride <25 sq cm 09/21/2024 N/A 28242-ROGWFHF NAIL, 6 OR MORE 02/03/2025 N/A Encounters Encounter Location Date Provider Diagnosis [address] [address] 06/15/2024 Katharina Black Tinea unguium B35.1 ; Pressure injury of right foot, stage 1 L89.891 ; Pain in right toe(s) M79.674 ; Pain in left toe(s) M79.675 and Ingrown nail L60.[address] [address] 09/21/2024 Katharina Black Pressure injury of right foot, stage 1 L89.891 ; Edema, lower extremity R60.0 ; Tinea unguium B35.1 ; Pain in right toe(s) M79.674 ; Pain in left toe(s) M79.675 and Ingrown nail L60.[address] [address] 02/03/2025 Katharina Black Tinea unguium B35.1 ; [...] Treatment Pending Test Test Name Order Date 69460-JIUARIT NAIL, 6 OR MORE 08/07/2021 53152-IMHCIQA NAIL, 6 OR MORE 12/11/2021 13703-QHLAXJH NAIL, 6 OR MORE 04/16/2022 64597-YYERSLF NAIL, 6 OR MORE 08/20/2022 08447-FWFZJCT NAIL, 6 OR MORE 12/31/2022 18742-RZBRWZH NAIL, 6 OR MORE 05/06/2023 75191-ERPEOTK NAIL, 6 OR MORE 11/14/2023 49563-FAUOPJY NAIL, 6 OR MORE 02/24/2024 01409-LVSMHGS NAIL, 6 OR MORE 06/15/2024 92970-OGOCZII NAIL, 6 OR MORE 09/21/2024 05795-UWBQYYE NAIL, 6 OR MORE 02/03/2025 66899-Tmtbflzd Plate 09/21/2024 69629-Bffkavta Plate 05/06/2023 86968-Lgtayhpa Plate 06/15/2024 96358-Nqdvbtay Plate 12/31/2022 50636- Debride <25 sq cm 12/11/2021 50903- Debride <25 sq cm 05/06/2023 76220- Debride <25 sq cm 12/31/2022 06364- Debride <25 sq cm 08/20/2022 39794- Debride <25 sq cm 04/16/2022 15552- Debride <25 sq cm 09/04/2021 04901- Debride <25 sq cm 04/16/2018 80140- Debride <25 sq cm 05/25/2021 58566- Debride <25 sq cm 08/07/2021 48342- Debride <25 sq cm 09/21/2024 75006- Debride <25 sq cm 06/15/2024 00059,Z5972-PZS TENDON SHEATH/LIGAMENT 1 10/07/2020 59915,X4818-OMW TENDON SHEATH/LIGAMENT 0 05/25/2021 71454,R1549-QUE TENDON SHEATH/LIGAMENT 1 11/04/2020 Next Appt Details Provider Name:Katharina De La Rosa , 07/06/2025 01:30:00 PM, [address] [facility], [place], [address], Insurance Providers Payer Name Payer Address Payer Phone Subscriber Number Group Number Insured Name Patient Relationship to Insured Coverage Start Date Coverage End Date [facility]) [address] [place] [id number] [facility] Radha Blandon Self - patient is the insured Medical (General) History Medical History History ICD Code Anemia Anxiety disorder Arthritis Back,Hip,and Knee pain Chicken pox High blood pressure Kidney stones Measles Mumps Broken bones Sciatica A fib Surgical History Surgery Date(Month/Year) Lithotripsy 2019 eye surgery, lenses 12/23 Hospitalization History Reason Date(Month/Year) [facility] [place] 10/11/23
== END 2025-06-14 13:19 | disposition home or self-care (01) ==
LOC: HO.HCS 12:47
PROVIDERS: PCP Internal Medicine; Visit Provider Nurse Practitioner Family
DX: I48.91 Unspecified atrial fibrillation (principal); G47.30 Sleep apnea, unspecified; I10 Essential (primary) hypertension
CPT/HCPCS: 99214

== ENCOUNTER 2025-07-07 12:21 | Outpatient (AMB) | payer OTHER, SELFPAY ==
[2025-07-07 12:27] VITALS: BP 138/62; PULSE 63; TEMP 36.4; O2SAT 98; BMI 42.3
--- NOTE | 2025-07-07 12:27 | MHC.OFFWIV ---
Intake Vital Signs 07/07/25 12:27 Height 5 ft 8 in Weight 278 lb BMI 42.3 BP 138/62 Blood Pressure Location Lt brachial Position Sitting Pulse 63 Pulse Source Pulse Oximeter Temp 97.5 F Temp Source Oral Pulse Oximetry (%) 98 Oxygen Delivery Method Room Air Intake Visit Reasons: EP cat scratch on left foot Intake Note: pt presents with cat scratch on left calf. hx of cat scratch infection. Patient Tobacco Use Status: Never used Tobacco Allergies metoprolol Allergy (Severe, Verified 07/07/25 12:29) Rash doxycycline Adverse Reaction (Intermediate, Verified 07/07/25 12:29) Abdominal Pain methylprednisolone Adverse Reaction (Intermediate, Verified 07/07/25 12:29) rapid heart rate erythromycin base Adverse Reaction (Unknown, Verified 07/07/25 12:29) upset stomach nausea dapagliflozin (From [facility]) Adverse Reaction (Verified 07/07/25 12:29) candidiasis Do you need a note to return to daycare/school/sports/work: No HPI HPI Comments History of Present Illness Details History of Present Illness - The patient is a 74-year-old female presenting with a cat scratch wound. - The scratch occurred approximately two hours prior to the visit while playing with her cat. - The patient has a history of a similar incident where a cat scratch led to a severe infection requiring emergency care at [facility]. - The current scratch shows early signs of infection, including redness. - The patient has no history of diabetes, which is relevant for wound healing. - She denies fever, chills, joint pain, numbness, tingling, or discharge. - The patient is concerned about developing a yeast infection due to antibiotic use, as she has experienced this side effect previously. Physical Exam General: Cooperative, healthy appearing, comfortable, no acute distress and well developed Orientation: Patient oriented x3 Respiratory: Normal respiratory effort and able to speak in complete sentences. Clear to auscultation bilaterally. No w/r/r noted. Cardiovascular: Regular rate and rhythm. Normal S1 and S2. No m/r/g noted. Skin: Small superficial scratch noted on the left lateral ankle. Erythema to the left lateral ankle with mild swelling. No bleeding or discharge noted. Neuro: Patient oriented x3. Sensation intact. Extremities: Normal to inspection. FROM of the left ankle. Ambulates with a walker. Patent was informed and verbally consented to the use of an ambient scribe for clinic note documentation during this visit. [facility] Medical History Atrial fibrillation CKD (chronic kidney disease) stage 3, GFR 30-59 ml/min SHARIF (obstructive sleep apnea) Retrognathia Chest pain Morbid obesity Hyperlipemia Annual physical exam Mammogram normal DJD (degenerative joint disease), lumbar Anxiety HTN (hypertension) Surgical History H/O bilateral cataract extraction H/O lithotripsy H/O colonoscopy Family History Father No problems noted. Mother HTN (hypertension) Social History Housing: House Alcohol intake: current Alcohol intake frequency: holidays/special occasions only Patient Tobacco Use Status: Never used Tobacco e-Cigarette/Vaping Use: Never Used Second Hand Smoke Exposure: No service: No Current occupational status: retired Cognitive needs: No Hearing needs: No Vision needs: Yes Review of Systems Const All systems reviewed & are unremarkable except as noted in HPI and below Physical Exam Vital Signs: Last Vital Signs Temp 97.5 F 07/07/25 12:27 Pulse 63 07/07/25 12:27 BP 138/62 07/07/25 12:27 Pulse Ox 98 07/07/25 12:27 Oxygen Delivery Method Room Air 07/07/25 12:27 BMI result Body Mass Index 42.3 Assessment & Plan Assessment & Plan (1) Cat scratch of left lower leg: Code(s): S80.812A - Abrasion, left lower leg, initial encounter; W55.03XA - Scratched by cat, initial encounter Qualifiers: Encounter type: initial encounter Qualified Code(s): S80.812A - Abrasion, left lower leg, initial encounter; W55.03XA - Scratched by cat, initial encounter Plan Most likely a developing cellulitis after a cat scratch plan - keep area clean and dry - bactroban ointment to the area TID for 10 days - augmentin BID for 7 days - tylenol or motrin as needed for pain - watch worsening redness, swelling, numbness, tingling, fever, chills, etc and go to the ER - follow up with PCP Medications: New amoxicillin-pot clavulanate 875-125 mg 1 tab PO Q12H 14 tabs 0RF mupirocin 2% 1 appl topical TID 22 grams 0RF fluconazole may repeat second dose 72 hrs after first dose if symptoms persist 150 mg PO Q3D 2 tabs 0RF Coding Level of Care Code Est Pt Level 3 (40006) Diagnoses Cat scratch of left lower leg, initial encounter S80.812A; W55.03XA Encounter type: initial encounter
--- OUTSIDE RECORDS SUMMARY | 2025-07-07 13:48 | XMS_ITS | Clinical Summary ---
Author Organization [address] Address [address] [place] [address] Phone Care Team Providers Care Fingerprint Technician Name Role Phone Viola Mack MD Primary Care Provider [phone] Encounters Date Type Department Care Team Description 05/21/2025 1:30 PM EDT - 05/21/2025 11:59 PM EDT Hospital Encounter Radiology Department - [address] [phone] Discharge Disposition: Home or Self Care 05/21/2025 1:30 PM EDT - 05/21/2025 11:59 PM EDT Hospital Encounter Radiology Department - [address] [phone] Screening mammogram for breast cancer Discharge Disposition: Home or Self Care from Last 3 Months Surgical History Surgery Date Site/Laterality Comments OTHER SURGICAL HISTORY 1999 PROCEDURE: UT ERCP DESTRUCTION/LITHOTRIPSY CALCULI ANY METHOD OTHER SURGICAL HISTORY 03/22 PROCEDURE: MAMMOGRAM COLONOSCOPY 01/07 PROCEDURE: UT COLONOSCOPY STOMA DX INCLUDING COLLJ SPEC SPX; COMMENT: [facility] COLONOSCOPY 02/11/2014 PROCEDURE: UT COLONOSCOPY FLX DX W/COLLJ SPEC WHEN PFRMD; COMMENT: normal Medical History Medical History Date Comments Calculus of kidney DX:Calculus o f kidney Dermatophytosis of nail 04/04/2006 DX:[place] tophytosis of nail Primary localized osteoarthr osis, [...] Health Maintenance Due Date Last Done Comments Colorectal Cancer Screening: Colonoscopy 1950 RSV Immunization Adult Patients (1 - Risk 60-74 years 1-dose series) 2011 Zoster Vaccines (2 of 3) 11/28/2011 10/03/2011 Cholesterol Screening (Lipid Panel) 09/15/2022 Falls Risk Assessment 09/15/2022 Hepatitis C [...] is recommended in 1 year. MAMMO LOCATION: [facility], [address] [place] [address], [address], . -------- FINAL REPORT -------- Dictated By: Leena Tejeda Dictated Date: 05/24/2025 18:09 ET Assigned Physician: Leena Tejeda Reviewed and Electronically Signed By: Leena Tejeda Signed Date: 05/24/2025 18:09 ET Workstation ID: [id number] Transcribed By: Self Edit Transcribed Date: 05/24/2025 [...] is recommended in 1 year. MAMMO LOCATION: [facility], [address] [place] [address], [address], . -------- FINAL REPORT -------- Dictated By: Leena Tejeda Dictated Date: 05/24/2025 18:09 ET Assigned Physician: Leena Tejeda Reviewed and Electronically Signed By: Leena Tejeda Signed Date: 05/24/2025 18:09 ET Workstation ID: [id number] Transcribed By: Self Edit Transcribed Date: 05/24/2025 [...] classified as having normal bone density. The [facility] Department of Internal Medicine recommends [...] beclassified as having normal bone density. The [facility] Department of Internal Medicine recommendsusing [...] to Health [place] [id number] [facility] [place] [id number] Care Teams Fingerprint Technician Relationship Specialty Start Date End Date Viola Mack MD [address] [facility] [place] [address] PCP - General Internal Medicine 05/21/25
--- OUTSIDE RECORDS SUMMARY | 2025-07-07 13:48 | XMS_ITS | Clinical Summary ---
Author Organization [facility] Address [address] [facility] [address] [place] [address] Phone Care Team Providers Care Glass Worker Name Role Phone Viola Mack MD Primary Care Provider [phone] Allergies Active Allergy Reactions Criticality Noted Date [...] Office Visit [facility] [address] [phone] Justin Espitia MD [facility] [phone] Health Maintenance Due Date Last Done Comments Breast Cancer Screening 1950 Pneumococcal Vaccine: 50+ Ye ars (1 of 2 - PCV) 1970 Colorectal Cancer Screening: Annual FOBT 2000 Colorectal Cancer Screening: Colonoscopy 2000 Colorectal Cancer Screening: Sigmoidoscopy 2000 Influenza Vaccine (#1) 2025 Hepatitis B Vaccine Aged Out No longe r eligible based on patient's age to complete this topic Insurance [facility] [place] [place] [id number] Care Teams Glass Worker Relationship Specialty Start Date End Date Viola Mack MD [address] [facility] [place] [address] PCP - General Internal Medicine 08/21/22
== END 2025-07-07 13:45 | disposition home or self-care (01) ==
PROVIDERS: PCP Internal Medicine; Visit Provider Physician Assistant Medical
DX: S80.812A Abrasion, left lower leg, initial encounter (principal); W55.03XA Scratched by cat, initial encounter

== ENCOUNTER 2025-07-30 12:01 | Outpatient (REF) | payer OTHER, SELFPAY ==
--- OUTSIDE RECORDS SUMMARY | 2024-12-28 07:30 | XMS_ITS ---
Author Organization [facility] Address [address] [place] [address] Care Team Providers Care Right Of Way Appraiser Name Role Phone Frederick COPELAND, Viola Primary Care Provider Unavaila marc De La Rosa Katharina Unavailable [phone] Saha Encounters Encounter Location Date Provider Diagnosis [facility] [address] [place] [address] 12/28/2024 Katharina Rj Plan Of Treatment Next Appt Details Provider Name:Katharina De La Rosa , 10/13/2025 02:45:00 PM, [address] [place], [address], Provider Name:Katharina De La Rosa , 01/10/2026 11:00:00 AM, [address] [place] [address], [address], Progress Notes * Radha BLANDON EDOB: (75 yo F)Acc No.[id number]:12/28/2024 Progress Note Patient: Marika IVYVONRadha Provider: Marika De La Rosa DPM :1950 A ge:74 Y S ex:Female Date:12/28/2024 Address: [place] Pcp:Viola Mack MD Subjective: * Chief Complaints: [...] 0 12/28/2024 Generated for William ingram/Kaity/Javi on: 02:17 PM EDT
--- OUTSIDE RECORDS SUMMARY | 2025-03-29 06:30 | XMS_ITS ---
Author Organization [facility] Address [address] [place] [address] Care Team Providers Care Director Of Officiating Name Role Phone Frederick COPELAND, Viola Primary Care Provider Unavaila marc De La Rosa Katharina Unavailable [phone] REASON FOR VISIT Seen Sooner Encounters Encounter Location Date Provider Diagnosis [facility] [address] [place] [address] 03/29/2025 Katharina Rj Plan Of Treatment Next Appt Details Provider Name:Katharina De La Rosa , 10/13/2025 02:45:00 PM, [address] [facility], [place], [address], Provider Name:Katharina De La Rosa , 01/10/2026 11:00:00 AM, [address] [place], [address], Progress Notes * Radha BLANDON EDOB: (75 yo F)Acc No.[id number]:03/29/2025 Progress Note Patient: Marika HAYNESVONRadha Provider: Marika De La Rosa DPM :1950 A ge:74 Y S ex:Female Date:03/29/2025 Address: [place] Pcp:Viola Mack MD Subjective: * Chief Complaints: [...] 0 03/29/2025 Generated for William ingram/Kaity/Javi on: 02:17 PM EDT
--- OUTSIDE RECORDS SUMMARY | 2025-06-03 10:45 | XMS_ITS ---
Author Organization [facility] Address [address] [place] [address] Care Team Providers Care Rabies Inspector Name Role Phone Frederick COPELAND, Viola Primary Care Provider Unavaila marc De La Rosa Katharina Unavailable [phone] Saha Encounters Encounter Location Date Provider Diagnosis [facility] [address] [place] [address] 06/03/2025 Katharina Rj Plan Of Treatment Next Appt Details Provider Name:Katharina De La Rosa , 10/13/2025 02:45:00 PM, [address] [place], [address], Provider Name:Katharina De La Rosa , 01/10/2026 11:00:00 AM, [address] [place] [address], [address], Progress Notes * Radha BLANDON EDOB: (75 yo F)Acc No.[id number]:06/03/2025 Progress Note Patient: Marika IVYVONRadha Provider: Marika De La Rosa DPM :1950 A ge:74 Y S ex:Female Date:06/03/2025 Address: [place] Pcp:Viola Mack MD Subjective: * Chief Complaints: [...] 0 06/03/2025 Generated for William ingram/Kaity/Javi on: 02:18 PM EDT
--- OUTSIDE RECORDS SUMMARY | 2025-07-22 05:30 | XMS_ITS ---
Author Organization [facility] Address [address] [place] [address] Care Team Providers Care Shovel Log Loader Operator Name Role Phone Viola Mack MD Primary Care Provider Unavaila Katharina Lawrence Unavailable [phone] REASON FOR VISIT for sooner apt Encounters Encounter Location Date Provider Diagnosis [facility] [address] [place] [address] 07/22/2025 Katharina De La Rosa Plan Of Treatment Next Appt Details Provider Name:Katharina Beard Rj , 10/13/2025 02:45:00 PM, [address] [facility], [place], [address], Provider Name:Katharina Beard Rj , 01/10/2026 11:00:00 AM, [address] [place] [address], [phone], Progress Notes * Radha BLANDON EDOB: (75 yo F)Acc No.[id number]:07/22/2025 Progress Note Patient: Radha PÉREZ Provider: Marika De La Rosa DPM :1950 A ge:74 Y S ex:Female Date:07/22/2025 Address: [place] Pcp:Viola Mack MD Subjective: * Chief Complaints: [...] Provider: Marika De La Rosa DPM Date: Generated for William ingram/Kaity/Javi on: 02:18 PM EDT
--- OUTSIDE RECORDS SUMMARY | 2025-07-30 14:18 | XMS_ITS | Clinical Summary ---
Author Organization [address] Address [address] [place] [address] Phone Care Team Providers Care Technical Support Assistant Name Role Phone Viola Mack MD Primary Care Provider [phone] Encounters Date Type Department Care Team Description 05/21/2025 1:30 PM EDT - 05/21/2025 11:59 PM EDT Hospital Encounter Radiology Department - [address] [phone] Discharge Disposition: Home or Self Care 05/21/2025 1:30 PM EDT - 05/21/2025 11:59 PM EDT Hospital Encounter Radiology Department - [address] [phone] Screening mammogram for breast cancer Discharge Disposition: Home or Self Care from Last 3 Months Surgical History Surgery Date Site/Laterality Comments OTHER SURGICAL HISTORY 1999 PROCEDURE: UT ERCP DESTRUCTION/LITHOTRIPSY CALCULI ANY METHOD OTHER SURGICAL HISTORY 03/22 PROCEDURE: MAMMOGRAM COLONOSCOPY 01/07 PROCEDURE: UT COLONOSCOPY STOMA DX INCLUDING COLLJ SPEC SPX; COMMENT: [facility] COLONOSCOPY 02/11/2014 PROCEDURE: UT COLONOSCOPY FLX DX W/COLLJ SPEC WHEN PFRMD; COMMENT: normal Medical History Medical History Date Comments Calculus of kidney DX:Calculus o f kidney Dermatophytosis of nail 04/04/2006 DX:[place] tophytosis of nail Primary localized osteoarthr osis, [...] RSV Immunization Adult Patients (1 - Risk 50-74 years 1-dose series) 2001 Zoster Vaccines (2 of 3) 11/28/2011 10/03/2011 [...] is recommended in 1 year. MAMMO LOCATION: [facility], [address] [place] [address], [address], . -------- FINAL REPORT -------- Dictated By: Leena Tejeda Dictated Date: 05/24/2025 18:09 ET Assigned Physician: Leena Tejeda Reviewed and Electronically Signed By: Leena Tejeda Signed Date: 05/24/2025 18:09 ET Workstation ID: [id number] Transcribed By: Self Edit Transcribed Date: 05/24/2025 [...] is recommended in 1 year. MAMMO LOCATION: [facility], [address] [place] [address], [address], . -------- FINAL REPORT -------- Dictated By: Leena Tejeda Dictated Date: 05/24/2025 18:09 ET Assigned Physician: Leena Tejeda Reviewed and Electronically Signed By: Leena Tejeda Signed Date: 05/24/2025 18:09 ET Workstation ID: [id number] Transcribed By: Self Edit Transcribed Date: 05/24/2025 [...] classified as having normal bone density. The [facility] Department of Internal Medicine recommends [...] beclassified as having normal bone density. The [facility] Department of Internal Medicine recommendsusing [...] to Health [place] [phone] [facility] [place] [id number] Care Teams Technical Support Assistant Relationship Specialty Start Date End Date Viola Mack MD [address] [facility] [place] [address] PCP - General Internal Medicine 05/21/25
--- OUTSIDE RECORDS SUMMARY | 2025-07-30 14:18 | XMS_ITS | Patient Health Record ---
Author Organization [facility] Address [address] [facility] [address] [place] [address] Support Name Relationship Address Phone DEVORA DUBOSE Guarantor Unknown [phone] Reason For Referral No Information Medications Medication SIG (Take, Route, Fr equency, Duration) Notes Start Date End Date Status Fluconazole 50MG 5ML ORAL WEEKLY; Duration: 7 Cas-MJ 12/05 Active Immunizations Vaccine Route Administration Date Status Comme nts Influenza, live, intranasal Intramuscular 12/19/2011 Pendi ng Problems Problem Type SNOMED Code ICD Code Onset Dates Problem Status W/U Status Risk Notes Problem Gynecological examination normal ([id number]) Routine gynecological examination (V72.31) Active confirmed Diag Plan Of Treatment No Information Insurance Providers Payer Name Payer Address Payer Phone Subscriber Number Group Number Insured Name Patient Relationship to Insured Coverage Start Date Coverage End Date [facility] INDEMNITY PL[facility] [address] [place], [place] [id number] DEVORA DUBOSE Self - patient is the insured
--- OUTSIDE RECORDS SUMMARY | 2025-07-30 14:18 | XMS_ITS | Clinical Summary ---
Author Organization [facility] Address [address] [facility] [address] [place] [address] Phone Care Team Providers Care Electromyographic Technician Name Role Phone Viola Mack MD Primary Care Provider [phone] Allergies Active Allergy Reactions Criticality Noted Date [...] Care Team (Late st Contact Info) Description 08/07/2025 Orders Only [facility] [address] [phone] Justin Espitia MD [facility] [address] [phone] Stage 3a chronic kidney disease (HCC); Personal history of kidney stones; Localized edema; Hypertension 08/09/2025 10:20 AM EST [facility] Visit [facility] [address] [phone] Justin Espitia MD [address] [phone] Health Maintenance Due Date Last Done Comments Breast Cancer Screening 1950 Pneumococcal Vaccine: 50+ Ye ars (1 of 2 - PCV) 1970 Colorectal Cancer Screening: Annual FOBT 2000 Colorectal Cancer Screening: Colonoscopy 2000 Colorectal Cancer Screening: Sigmoidoscopy 2000 Influenza Vaccine (#1) 2025 Hepatitis B Vaccine Aged Out No longe r eligible based on patient's age to complete this topic Insurance [facility] Care Teams Electromyographic Technician Relationship Specialty Start Date End Date Viola Mack MD [address] [place] [address] PCP - General Internal Medicine 08/21/22
--- OUTSIDE RECORDS SUMMARY | 2025-07-30 14:18 | XMS_ITS | Patient Health Record ---
Author Organization [facility] Address [address] [place] [address] Care Team Providers Care Apprentice/Lineman Name Role Phone Viola Mack MD Primary Care Provider Unavaila marc De La Rosa Katharina Unavailable [phone] Allergies Allergen (clinical drug ingredient) Drug/Non Drug [...] Duration) Notes Start Date End Date Status Compression Stockings 20-30mm Hg 1 pair wear daily; Duration: 30 days Active Multivitamin Adult - Orally Active Tylenol PM Extra Strength 500-25 MG 1 tablet at bedtime as needed Orally Once a day Active Glucosamine Sulfate 750 MG 1 capsule with a meal Orally Once a day Active Aspirin 81 MG 1 tablet Orally Once a day Not-Taking Lisinopril 20 MG 1 tablet Orally Once a day Active Charis Allergy 180 MG 1 tablet Orally O nce a day; Duration: 30 day(s) Active Norvasc 10 MG 1 tablet Orally Once a day Not-Taking amLODIPine Besylate 5 MG 5 mL Orally Onc e a day; Duration: 30 days Active hydrOXYzine HCl 25 MG 1 tablet as needed Orally every 8 hrs Not-Taking Atenolol 50 MG 1 tablet Orally Once a day Active Farxiga 5 MG 1 tablet Orally Once a day Not-Taking Eliquis 5 MG as directed Orally 2 times daily Active Gabapentin 600 MG 1 tablet Orally Once a day; Duration: 30 day(s) Not-Taking Medrol masha 4mg as directed orally a s directed; Duration: 6 days 10/10/2023 Not-Taking Furosemide Active Walking Boot/Pneumatic As directed Wear Daily; Duration: Until further notice 10/10/2023 Not-Taking Immunizations Vaccine Route Administration Date Status Comme nts Influenza Unknown 08/07/2021 Refused Influenza Unknown 07/06/2025 Refused COVID-19 Moderna Vaccine Unknown 12/29/2020 Administere [...] Problem Status W/U Status Risk Notes Problem Bilateral atherosclerosis of arteries of lower limbs (disorder) ([id number] ) Atherosclerosis of [place] artery of both lower extremities, with unspecified presence of clinical manifestation (I70.203) Active confirmed Q7(A), Q8(2B), Q9(1B,2 C) Vital Signs Blood pressure diastolic 70 mm Hg 07/06/2025 Height 5ft 8in in 07/06/2025 Blood pressure systolic 130 mm Hg 07/06/2025 Weight 265 lbs 07/06/2025 BMI 40.29 kg/m2 07/06/2025 Procedures Procedure Date Ordered Date Performed Result Body Sit e 98866-TOFEDTS NAIL, 6 OR MORE 09/21/2024 N/A 71990-Ozfevzdw Plate 09/21/2024 N/A 67018- Debride <25 sq cm 09/21/2024 N/A 78505-JTYMUOD NAIL, 6 OR MORE 02/03/2025 N/A 30804-QMFOMIZ NAIL, 6 OR MORE 07/06/2025 N/A 09346-NYGC SKIN LESIONS, OVER 4 07/06/2025 N/A Encounters Encounter Location Date Provider Diagnosis [facility] [address] [place] [address] 09/21/2024 Katharina Black Pressure injury of right foot, stage 1 L89.891 ; Edema, lower extremity R60.0 ; Tinea unguium B35.1 ; Pain in right toe(s) M79.674 ; Pain in left toe(s) M79.675 and Ingrown nail L60.[address] [facility] [address] 02/03/2025 Katharina Black Tinea unguium B35.1 ; Bulla R23.8 ; Pain in right toe(s) M79.674 ; Pain in left toe(s) M79.675 and Other hammer toe(s) (acquired), left foot M20.42 [facility] [address] 07/06/2025 Katharina Black Atherosclerosis of [place] artery of both lower extremities, with unspecified presence of clinical manifestation I70.203 ; Tinea unguium B35.1 ; Pain in right toe(s) M79.674 and Pain in left toe(s) M79.675 Assessments Encounter Date Diagnosis (ICD Code) Assessment Notes Treatment Notes Treatment Clinical Notes Section Notes 09/21/2024 Pressure injury of right foot, stage 1 (ICD-10 - L89.891) Response to treatment - Improvement Patient Educated with: WOUND CARE INSTRUCTIONS. pdf (WOUND CARE INSTRUCTIONS. pdf) 09/21/2024 Edema, lower extremity (ICD-10 - R60.0) 02/03/2025 Tinea unguium (ICD-10 - B35.1) 02/03/2025 Bulla (ICD-10 - R23.8) 07/06/2025 Tinea unguium (ICD-10 - B35.1) 07/06/2025 Atherosclerosis of [place] artery of both lower extremities, with unspecified presence of clinical manifestation (ICD-10 - I70.203) Q7(A), Q8(2B), Q9(1B,2C) 07/06/2025 Pain in right toe(s) (ICD-10 - M79.674) 02/03/2025 Pain in right toe(s) (ICD-10 - M79.674) 09/21/2024 Tinea unguium (ICD-10 - B35.1) 09/21/2024 Pain in right toe(s) (ICD-10 - M79.674) 07/06/2025 Pain in left toe(s) (ICD-10 - M79.675) 02/03/2025 Pain in left toe(s) (ICD-10 - M79.675) 02/03/2025 Other hammer toe(s) (acquired), left foot (ICD-10 - M20.42) 09/21/2024 Pain in left toe(s) (ICD-10 - M79.675) 09/21/2024 Ingrown nail (ICD-10 - L60.0) Plan Of Treatment Pending Test Test Name Order Date 81486-EUHIKRN NAIL, 6 OR MORE 08/07/2021 54378-GZQPBJM NAIL, 6 OR MORE 12/11/2021 23254-NPNVEIK NAIL, 6 OR MORE 04/16/2022 32552-YKXVSCF NAIL, 6 OR MORE 08/20/2022 56330-LUJZYEL NAIL, 6 OR MORE 12/31/2022 78499-ALLXYTH NAIL, 6 OR MORE 05/06/2023 36165-VTPXQHR NAIL, 6 OR MORE 11/14/2023 47327-PDYRHFE NAIL, 6 OR MORE 02/24/2024 70115-WTIBYQB NAIL, 6 OR MORE 06/15/2024 93206-WHVJDNX NAIL, 6 OR MORE 09/21/2024 54295-VMXIFCZ NAIL, 6 OR MORE 02/03/2025 10751-XJYJWWA NAIL, 6 OR MORE 07/06/2025 67998-Odpjfniu Plate 09/21/2024 24658-Qdnqnkzp Plate 05/06/2023 76629-Nmgpfkzd Plate 06/15/2024 17453-Wbkipwev Plate 12/31/2022 87374- Debride <25 sq cm 12/11/2021 09338- Debride <25 sq cm 05/06/2023 54457- Debride <25 sq cm 12/31/2022 79075- Debride <25 sq cm 08/20/2022 65808- Debride <25 sq cm 04/16/2022 50282- Debride <25 sq cm 09/04/2021 24430- Debride <25 sq cm 04/16/2018 11764- Debride <25 sq cm 05/25/2021 39851- Debride <25 sq cm 08/07/2021 77490- Debride <25 sq cm 09/21/2024 80254- Debride <25 sq cm 06/15/2024 29880-NLHK SKIN LESIONS, OVER 4 07/06/20 49658,K9965-KOA TENDON SHEATH/LIGAMENT 1 10/07/2020 71990,Z1821-ITC TENDON SHEATH/LIGAMENT 0 05/25/2021 51069,O9573-KYJ TENDON SHEATH/LIGAMENT 1 11/04/2020 Next Appt Details Provider Name:Katharina De La Rosa , 10/13/2025 02:45:00 PM, [address] [facility], [place], [address], Provider Name:Katharina De La Rosa , 01/10/2026 11:00:00 AM, [address] [place] [address], [address], Insurance Providers Payer Name Payer Address Payer Phone Subscriber Number Group Number Insured Name Patient Relationship to Insured Coverage Start Date Coverage End Date [facility]) [address] [place] [address] [id number] [facility] Radha Blandon Self - patient is the insured Medical (General) History Medical History History ICD Code Anemia Anxiety disorder Arthritis Back,Hip,and Knee pain Chicken pox High blood pressure Kidney stones Measles Mumps Broken bones Sciatica A fib 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
[2025-07-30 16:06] LABS: MANUAL DIFF FLAG NO
[2025-07-30 16:15] LABS: Hematocrit 38.7 % (37.0-47.0); Hemoglobin 12.5 g/dl (12.0-16.0); Imm Gran Abs Auto 0.06 X10*3/uL (0.00-0.03); Imm Gran Pct Auto 0.5 % (0.0-0.4); Lymphocytes Absolute Auto 1.0 X10*3/uL (1.2-4.9); Mean Corpuscular HGB Conc 32.3 g/dl (31.0-35.0); Mean Corpuscular Hemoglobin 31.3 pg (27.0-33.0); Mean Corpuscular Volume 97.0 fL (80.0-98.0); NRBC Abs Auto 0.000 X10*3/uL (0.0-0.012); NRBC Pct Auto 0.0 /100WBC (0.0-0.2); Platelet Count 285 X10*3/uL (160-400); Red Blood Count 3.99 X10*6/uL (4.20-5.50); White Blood Count 11.7 X10*3/uL (4.8-10.8)
[2025-07-30 16:47] LABS: Parathyroid Hormone Intact 79.4 pg/mL (8.7-77.1)
[2025-07-30 17:21] LABS: Alanine Aminotransferase 20 U/L (0-31); Albumin Level 4.0 g/dL (3.5-5.0); Alkaline Phosphatase 74 U/L (39-117); Anion Gap 12 (12-20); Aspartate Amino Transferase 21 U/L (5-31); Blood Urea Nitrogen 33 mg/dL (9-16); Calcium 9.0 mg/dL (8.4-10.2); Carbon Dioxide 22 mmol/L (22-29); Chloride 108 mmol/L (96-108); Estimated Glomerular Filt Rate 44; Magnesium 2.3 mg/dL (1.6-2.6); Potassium 4.4 mmol/L (3.3-5.1); Sodium 138 mmol/L (135-145); Total Protein 6.9 g/dL (6.5-8.0); Uric Acid 6.0 mg/dL (2.4-5.7)
[2025-07-30 17:59] LABS: Total Protein Urine Random < 7 mg/dL (<12)
== END 2025-07-30 12:02 | disposition home or self-care (01) ==
LOC: HO.HMGCLDS 12:01
PROVIDERS: PCP Internal Medicine; Visit Provider Internal Medicine Nephrology
DX: I12.9 Hypertensive chronic kidney disease with stage 1 through stage 4 chronic kidney disease, or unspecified chronic kidney disease (principal); N18.31 Chronic kidney disease, stage 3a; R60.0 Localized edema; Z87.442 Personal history of urinary calculi
CPT/HCPCS: 36415; 80053; 82306; 82570; 83735; 83970; 84100; 84156; 84550; 85025

== ENCOUNTER 2025-09-11 11:08 | Outpatient (REF) | payer OTHER, SELFPAY ==
--- OUTSIDE RECORDS SUMMARY | 2025-09-11 11:12 | XMS_ITS | Data Portability ---
Author Organization [place] [facility], Allergy Address [address] [address] Care Team Providers Care Automotive Glass Installer Name Role Phone SARAHIVERENICETrishaSUKHDEEP Primary Care Provider [phone] Assessment Encounter Date Assessment Date Assessment LastModified [...] call for reevaluation. Otherwise follow-up as needed. [email or web address] Not available 05/06/2024 11:24:19 Plan of Treatment [...] [email or web address] Not Available 22:10:30 05/27/2006/19/2023 imagi ng/di charlie tic resul t No observ ation record ed. [email or web address] Not Available 22:11:02 Result Notes None recorded. 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 Active 2020 Other specified disorders of temporoma ndibular joint; Note: Date Diagnosed : 05/27/2021 2:08 PM (M26.69) Not Available [facility] 4 03:16:50 Dizziness and giddiness 188571949 Active 2021 Dizziness and giddiness ; Note: Date Diagnosed : 03/27/2022 5:05 PM (R42) Not Available [facility] 4 03:16:49 Allergic rhinitis 98099568 Active 2021 Other allergic rhinitis; Note: Date Diagnosed : 03/27/2022 5:05 PM (J30.89) Not Available [facility] 4 03:16:49 Nasal congestio n 38990680 Active 2021 Nasal congestio n; Note: Date Diagnosed : 03/27/2022 5:05 PM (R09.81) Not Available [facility] 4 03:16:49 Benign paroxysma l positiona l vertigo 069108956 Active 2021 Benign paroxysma l vertigo, unspecifi ed ear; Note: Date Diagnosed : 03/27/2022 5:17 PM (H81.10) Not Available [facility] 4 03:16:50 Posterior rhinorrhe a 49910586 Active 2021 Postnasal drip; Note: Date Diagnosed : 06/27/2022 12:20 PM (R09.82) Not Available [facility] 4 03:16:50 Bilateral earache 662650897 Active 2022 Otalgia, bilateral ; Note: Date Diagnosed : 06/19/2023 2:26 PM (H92.03) Not Available [facility] 4 03:16:50 Pain of temporoma ndibular joint 30827861 Active 2023 SAMUEL FONG PA-C [address] [place] [address], [place], [address] , [place] [facility] 4 11:24:38 Problem Notes None recorded. Procedures Surgical History Date Name Laterality Status Provider Name and Address Organization Details Recorded Time lithotripsy completed [facility] [place] [facility] 05/06/2024 10:31:08 Imaging Results None recorded. Procedure Notes None recorded. Medical Equipment None Reported. Allergies Allergen ID Allergen Name Allergen Category Reaction Reaction Severity Criticality Documentation Date Start Date Code Code System Note Provider Name and Address Organization Details Recorded Time 91868 erythromy oamr medicatio n other Not available Not available 02/18/2024 4053 RxNorm React ion: Unkno wn; Not Available [facility] 4 00:48:36 Medications Name Sig Start Date Stop Date Status Note LastModified by Organization Details LastModified Time amoxicill in 500 mg capsule 05/06 completed Medicati on ID: 577802 B rand Name: amoxicil shameka Send Method: E-Prescr ibed Sub s Allowed: subs OK Speci al Instruct ion: TAKE 1 CAPSULE BY MOUTH THREE TIMES A DAY Medi cationGe nericNam e: amoxicil shameka Medi cation ID: [id number] B rand Name: amoxicil shameka Send Method: E-Prescr ibed Sub s Allowed: subs OK Speci al Instruct ion: TAKE 1 CAPSULE BY MOUTH THREE TIMES A DAY Medi cationGe nericNam e: amoxicil shameka Not Available Not Available Not Available gabapenti n 600 mg tablet active Medicati on ID: 709437 B rand Name: gabapent in Send Method: [...] 1 gram tablet active Medicati on ID: 858463 B rand Name: valacycl ovir Sen d Method: E-Prescr ibed Sub s Allowed: subs OK Speci al Instruct ion: TAKE 1 TABLET BY MOUTH 3 TIMES A DAY Medi cationGe nericNam e: valacycl ovir Not Available Not Available Not Available lisinopri l 20 mg tablet active Medicati on ID: 107902 B rand Name: lisinopr il Send Method: [...] 10 mg tablet active Medicati on ID: 601252 B rand Name: amlodipi ne Send Method: [...] % topical ointment active Medicati on ID: 175005 B rand Name: nicho moore Send Method: E-Prescr ibed Sub s Allowed: [...] as directed 2021 active Medicati on ID: 997910 B rand Name: azelasti ne Send Method: [...] applicato r 05/06 completed Medicati on ID: 098147 B rand Name: hydrocor tisone S end Method: E-Prescr ibed Sub s Allowed: subs OK Speci al Instruct ion: APPLY TOPICALL Y 4 TIMES DAILY NEEDED M edicamary nGtranic Name: torsten jeff n ID: [id number] B rand Name: hydrocor tisone S end Method: E-Prescr ibed Sub s Allowed: subs OK Speci al Instruct ion: APPLY TOPICALL Y 4 TIMES DAILY NEEDED M tomer nGeneric Name: hydrocor tisone Not Available Not Available Not Available Euflexxa [...] Diagnosis SNOMED-CT Code Diagnosis ICD10 Code Diagnosis IMO Codes Diagnosis Note 10505 SAMUEL FONG PA-C [facility] [address] [address] 05/06/2024 10:20:40 05/06/2024 10:55:09 Bilateral earache 903166786 H92.03 Pain of temporomandibular joint 76694086 M26.629 Health Concerns Section Related Observation LastModified by Organization Detai ls LastModified Time None Recorded Concern Status LastModified by Organization Details LastModified Time None Recorded Advance Directives Directive None Recorded Payers Insurance Date Sequence Insurance Name Policy Number Policy Gerard Covered Member ID Gerard Member ID Guarantor Name 05/06/2024 1 [facility] [employer] (INDEMNITY) [id number] Radha Blandon [id number] Radha Blandon Notes Date Note Type Note Provider Name and Address Organization Details Recorded Time 05/06/2024 text/html ROS as noted in the HPI 73-year-old female presents for reevaluation of bilateral [...] drainage within the ears. LUIS PALACIO MD [address] [place] [address], [place], [address], [facility] - [facility] 05/06/2024 12:41:25 OBGyn Episode No OBEpisode recorded.
--- OUTSIDE RECORDS SUMMARY | 2025-09-11 11:12 | XMS_ITS | Clinical Summary ---
Author Organization [address] Address [address] [place] [address] Phone Care Team Providers Care Bus Matron Name Role Phone Viola Mack MD Primary Care Provider [phone] Surgical History Surgery Date Site/Laterality Comments OTHER SURGICAL HISTORY 1999 PROCEDURE: CO ERCP DESTRUCTION/LITHOTRIPSY CALCULI ANY METHOD OTHER SURGICAL HISTORY 03/22 PROCEDURE: MAMMOGRAM COLONOSCOPY 01/07 PROCEDURE: CO COLONOSCOPY STOMA DX INCLUDING COLLJ SPEC SPX; COMMENT: [facility] COLONOSCOPY 02/11/2014 PROCEDURE: CO COLONOSCOPY FLX DX W/COLLJ SPEC WHEN PFRMD; COMMENT: normal Medical History Medical History Date Comments Calculus of kidney DX:Calculus o f kidney Dermatophytosis of nail 04/04/2006 DX:[place] tophytosis of nail Primary localized osteoarthr osis, [...] is recommended in 1 year. MAMMO LOCATION: [facility], [address] [place] [address], [address], . -------- FINAL REPORT -------- Dictated By: Leena Tejeda Dictated Date: 05/24/2025 18:09 ET Assigned Physician: Leena Tejeda Reviewed and Electronically Signed By: Leena Tejeda Signed Date: 05/24/2025 18:09 ET Workstation ID: [id number] Transcribed By: Self Edit Transcribed Date: 05/24/2025 [...] is recommended in 1 year. MAMMO LOCATION: [facility], [address] [place] [address], [facility], . -------- FINAL REPORT -------- Dictated By: Leena Tejeda Dictated Date: 05/24/2025 18:09 ET Assigned Physician: Leena Tejeda Reviewed and Electronically Signed By: Leena Tejeda Signed Date: 05/24/2025 18:09 ET Workstation ID: [id number] Transcribed By: Self Edit Transcribed Date: 05/24/2025 [...] classified as having normal bone density. The [facility] Department of Internal Medicine recommends using National [...] beclassified as having normal bone density. The [facility] Department of Internal Medicine recommendsusing National Osteoporosis [...] fracture risk by FRAX. Laureen Pillai MD IMG DXA PROCEDURES Final Result from Last 3 Months or Most Recently Relevant to Health Maintenance [facility] [place] [id number] Care Teams Bus Matron Relationship Specialty Start Date End Date Viola Mack MD [address] [place] [address] PCP - General Internal Medicine 05/21/25
[2025-09-11 14:03] LABS: Alanine Aminotransferase 16 U/L (0-31); Albumin Level 4.0 g/dL (3.5-5.0); Alkaline Phosphatase 82 U/L (39-117); Anion Gap 13 (12-20); Aspartate Amino Transferase 27 U/L (5-31); Blood Urea Nitrogen 17 mg/dL (9-16); Calcium 9.5 mg/dL (8.4-10.2); Carbon Dioxide 23 mmol/L (22-29); Chloride 108 mmol/L (96-108); Cholesterol 216 mg/dL (<200); Estimated Glomerular Filt Rate 45; HDL Cholesterol 51 mg/dL (>40); Potassium 4.5 mmol/L (3.3-5.1); Sodium 139 mmol/L (135-145); Total Protein 6.8 g/dL (6.5-8.0); Triglycerides 180 mg/dL (<150)
== END 2025-09-11 11:09 | disposition home or self-care (01) ==
LOC: HO.HMGCLDS 11:08
PROVIDERS: PCP Internal Medicine; Visit Provider Internal Medicine
DX: N18.30 Chronic kidney disease, stage 3 unspecified (principal); E78.5 Hyperlipidemia, unspecified; E55.9 Vitamin D deficiency, unspecified; I12.9 Hypertensive chronic kidney disease with stage 1 through stage 4 chronic kidney disease, or unspecified chronic kidney disease
CPT/HCPCS: 36415; 80048; 80053; 80061

== ENCOUNTER 2025-09-14 12:59 | Outpatient (AMB) | payer OTHER, SELFPAY ==
--- NOTE | 2025-09-14 13:21 | MHC.PC.OV ---
Vital Signs 09/14/25 13:22 Height 5 ft 8 in Weight 281 lb BMI 42.7 BP 132/70 Blood Pressure Location Rt brachial Position Sitting Respiration 17 Pulse 68 Pulse Source Pulse Oximeter Temp 97.5 F Temp Source Oral Pulse Oximetry (%) 96 Oxygen Delivery Method Room Air Intake Visit Reasons: Annual PE Intake Note: Pt is here today for PE. Allergies metoprolol Allergy (Severe, Verified 09/14/25 13:29) Rash doxycycline Adverse Reaction (Intermediate, Verified 09/14/25 13:29) Abdominal Pain methylprednisolone Adverse Reaction (Intermediate, Verified 09/14/25 13:29) rapid heart rate erythromycin base Adverse Reaction (Unknown, Verified 09/14/25 13:29) upset stomach nausea dapagliflozin (From [facility]) Adverse Reaction (Verified 09/14/25 13:29) candidiasis Medication List - Last Reconciled 09/14/25 by Viola Mack MD amlodipine 2.5 mg PO DAILY apixaban (Eliquis) 5 mg PO BID atenolol 50 mg PO DAILY desonide 0.05% topical fexofenadine (Charis Allergy) 60 mg PO DAILY fluconazole 150 mg PO Q3D fluticasone propionate 50 mcg/actuation 1 spray intranasal BID PRN furosemide 40 mg PO .QD PRN glucosamine sulfate 750 mg PO ONCE lisinopril 20 mg PO DAILY multivitamin 1 tab PO DAILY mupirocin 2% 1 appl topical TID Tobacco use date assessed: 09/14/25 Fall risk assessment: No Falls in past year Last assessed Fall Risk: 09/14/25 Dental Screening Dental Screen Date: 03/08/25 HPI Annual PE HPI Details Pt presents for physical. Hypertension, chronic kidney disease stage 3, paroxysmal AFib controlled on current medications. Patient complains of persistent difficulty with balance, having episodes of vertigo and dizziness when trying to walk. Patient completed physical therapy without significant improvement in her balance. she follows up with pain management for lumbar spine stenosis and has been getting cortisone injections every 6 months. patient denies weakness or numbness in upper or lower extremities, headaches, change in the vision. She had a negative CT of the brain last year. [facility] Medical History Atrial fibrillation CKD (chronic kidney disease) stage 3, GFR 30-59 ml/min SHARIF (obstructive sleep apnea) Retrognathia Chest pain Morbid obesity Hyperlipemia Annual physical exam Mammogram normal DJD (degenerative joint disease), lumbar Anxiety HTN (hypertension) Surgical History H/O bilateral cataract extraction H/O lithotripsy H/O colonoscopy Family History Father No problems noted. Mother HTN (hypertension) Social History Housing: House Alcohol intake: current Alcohol intake frequency: holidays/special occasions only Patient Tobacco Use Status: Never used Tobacco e-Cigarette/Vaping Use: Never Used Second Hand Smoke Exposure: No service: No Current occupational status: retired Cognitive needs: No Hearing needs: No Vision needs: Yes Questionnaire Thrive Questionnaire Date Thrive assessed: 12/03/24 I am a: Patient What is your living situation today?: I have a steady place to live Within the past 12 months, did the food you bought not last and you didn't have the money to get more?: Never true Within the past 12 months, did you worry whether your food would run out before you got money to buy more?: Never true Do you have trouble paying for medicines?: No Do you have trouble getting transportation to medical appointments?: No Do you have trouble paying your heating and electricity bill?: No Do you have trouble taking care of your child, family member or friend?: No Do you have trouble with day-to-day activities such as bathing, preparing meals, shopping, managing finances, etc.?: No Are you currently unemployed and looking for a job?: No Are you interested in more education?: No Please select the resources that you would like help with: None Currently or been in a relationship where the following occur: No concerns reported THRIVE Score: 0 HANNA-7 AMB Questionnaire HANNA-7 Date HANNA - 7 assessed: 03/08/25 Source: Developed by Drs. Gopi Baker, Stefani Doyle, Alfonso Carey and colleagues, with an educational jeancarlos from [employer]. Review of Systems Const All systems reviewed & are unremarkable except as noted in HPI and below Eyes Reports no additional complaints ENT Reports no additional complaints Card Reports no additional complaints Resp Reports no additional complaints GI Reports no additional complaints Reports no additional complaints Physical exam (Primary Care) Vital Signs: Last Vital Signs Temp 97.5 F 09/14/25 13:22 Pulse 68 09/14/25 13:22 Resp 17 09/14/25 13:22 BP 132/70 09/14/25 13:22 Pulse Ox 96 09/14/25 13:22 Oxygen Delivery Method Room Air 09/14/25 13:22 BMI result Body Mass Index 42.7 Tobacco/Smoking Status: Tobacco use Status Tobacco use date assessed 09/14/25 09/14/25 13:23 Patient Tobacco Use Status Never used Tobacco 09/14/25 13:23 e-Cigarette/Vaping Use Never Used 09/14/25 13:23 Thrive Assessment: Date of Thrive Assessment Date Thrive assessed 12/03/24 09/14/25 13:23 Currently or been in a relationship where the following occur: No concerns reported Const General: no acute distress HENMT Head: Yes normal to inspection Face and sinus: Yes normal facial exam Throat: Yes posterior oropharynx normal Neck Neck: Yes supple Resp Effort & Inspection: normal respiratory effort Auscultation: clear to auscultation bilaterally Cardio Rhythm: regular rhythm Heart sounds: S1 normal heart sound present and S2 normal heart sound present GI Inspection: Yes normal to inspection Palpation (GI): Soft to palpation Percussion: Yes normal to percussion Auscultation: normal bowel sounds Neuro Cranial nerves: Yes CN's II-XII intact bilaterally Gait exam (Neuro): Ataxic gait present Motor exam (neuro): 5/5 motor strength present throughout Romberg Test: Positive Extrem General: Yes no clubbing, cyanosis or edema Coding Level of Care Code Est Pt Prev Care >65y(63684) Diagnoses Cerebellar stroke syndrome G46.4 HTN (hypertension) I10 Hyperlipemia E78.5 CKD (chronic kidney disease) stage 3, GFR 30-59 ml/min N18.30 Morbid obesity E66.01 Atrial fibrillation I48.91 Assessment & Plan Assessment & Plan (1) Cerebellar stroke syndrome: Code(s): G46.4 - Cerebellar stroke syndrome Category: Medical Plan: For positive cerebellar signs obtain MRI of the brain to evaluate for CVA (2) HTN (hypertension): Code(s): I10 - Essential (primary) hypertension Category: Medical Plan: Continue current medications (3) Hyperlipemia: Comment: Patient refuses statin Code(s): E78.5 - Hyperlipidemia, unspecified Category: Medical Plan: Continue low-cholesterol diet (4) CKD (chronic kidney disease) stage 3, GFR 30-59 ml/min: Comment: started Farxiga 09/28 but stopped on 10/20/23 because of rash, patient's glost tile shader did not recommend SGTP2 inhibitor Code(s): N18.30 - Chronic kidney disease, stage 3 unspecified Category: Medical Plan: Monitor renal function avoid nephrotoxins follow-up with nephrology (5) Morbid obesity: Comment: BMI= 42.0 SHE HAS CHRONIC LYMPHEDEMA AND STASIS EDEMA , patient's insurance does not cover GLP 1 agonist for weight loss Code(s): E66.01 - Morbid (severe) obesity due to excess calories Category: Medical Plan: Decreasing caloric intake increasing physical activity discussed with the patient (6) Atrial fibrillation: Comment: 10/11/23 ER visit, started on Eliquis, metoprolol ? allergic reaction, rash Code(s): I48.91 - Unspecified atrial fibrillation Category: Medical Plan: Rate controlled on beta bronson and anticoagulated on Eliquis, follow-up in 6 months Orders: Orders MR head/brain wo con Today G46.4 - Cerebellar stroke syndrome, R29.818 - Other symptoms and signs involving the nervous system Lipid Panel 6 Months E66.01 - Morbid (severe) obesity due to excess calories, E78.5 - Hyperlipidemia, unspecified, I10 - Essential (primary) hypertension, I48.91 - Unspecified atrial fibrillation, N18.30 - Chronic kidney disease, stage 3 unspecified Vitamin D 25-OH Total 6 Months E66.01 - Morbid (severe) obesity due to excess calories, E78.5 - Hyperlipidemia, unspecified, I10 - Essential (primary) hypertension, I48.91 - Unspecified atrial fibrillation, N18.30 - Chronic kidney disease, stage 3 unspecified Microalbumin, Random (w Creat) 6 Months E66.01 - Morbid (severe) obesity due to excess calories, E78.5 - Hyperlipidemia, unspecified, I10 - Essential (primary) hypertension, I48.91 - Unspecified atrial fibrillation, N18.30 - Chronic kidney disease, stage 3 unspecified Comprehensive [place]. Panel Fast 6 Months E66.01 - Morbid (severe) obesity due to excess calories, E78.5 - Hyperlipidemia, unspecified, I10 - Essential (primary) hypertension, I48.91 - Unspecified atrial fibrillation, N18.30 - Chronic kidney disease, stage 3 unspecified Complete Blood Count Auto Diff 6 Months E66.01 - Morbid (severe) obesity due to excess calories, E78.5 - Hyperlipidemia, unspecified, I10 - Essential (primary) hypertension, I48.91 - Unspecified atrial fibrillation, N18.30 - Chronic kidney disease, stage 3 unspecified TSH reflex Free T4 6 Months E66.01 - Morbid (severe) obesity due to excess calories, E78.5 - Hyperlipidemia, unspecified, I10 - Essential (primary) hypertension, I48.91 - Unspecified atrial fibrillation, N18.30 - Chronic kidney disease, stage 3 unspecified UA w Microscopic 6 Months E66.01 - Morbid (severe) obesity due to excess calories, E78.5 - Hyperlipidemia, unspecified, I10 - Essential (primary) hypertension, I48.91 - Unspecified atrial fibrillation, N18.30 - Chronic kidney disease, stage 3 unspecified
[2025-09-14 13:22] VITALS: BP 132/70; PULSE 68; RESP 17; TEMP 36.4; O2SAT 96; BMI 42.7
== END 2025-09-14 14:55 | disposition home or self-care (01) ==
LOC: HO.HMCC 13:00
PROVIDERS: PCP Internal Medicine; Visit Provider Internal Medicine
DX: Z00.00 Encounter for general adult medical examination without abnormal findings (principal); I12.9 Hypertensive chronic kidney disease with stage 1 through stage 4 chronic kidney disease, or unspecified chronic kidney disease; N18.30 Chronic kidney disease, stage 3 unspecified; E66.01 Morbid (severe) obesity due to excess calories; I48.91 Unspecified atrial fibrillation; Z68.32 Body mass index [BMI] 32.0-32.9, adult; G46.4 Cerebellar stroke syndrome; E78.5 Hyperlipidemia, unspecified

== ENCOUNTER 2025-09-17 13:34 | Outpatient (REF) | payer OTHER, SELFPAY ==
--- NOTE | ~2025-09-17 | XR_ITS ---
EXAMINATION: XR HAND, LEFT CLINICAL INFORMATION: S61.459A - Open bite of unspecified hand, initial encounter COMPARISON: None available. TECHNIQUE: PA, lateral, and oblique views of the left hand. FINDINGS: Negative ulnar variance measures 3 mm. No fracture is identified. No significant degenerative changes are evident. XR/XR hand LT min 3V IMPRESSION: No acute bony abnormality. Ulnar minus variance. Electronically signed by: El Rader MD 09/17/2025 02:42 PM EST
[2025-09-17 15:59] LABS: MANUAL DIFF FLAG NO
[2025-09-17 16:15] LABS: Hematocrit 37.7 % (37.0-47.0); Hemoglobin 12.0 g/dl (12.0-16.0); Imm Gran Abs Auto 0.04 X10*3/uL (0.00-0.03); Imm Gran Pct Auto 0.4 % (0.0-0.4); Lymphocytes Absolute Auto 1.2 X10*3/uL (1.2-4.9); Mean Corpuscular HGB Conc 31.8 g/dl (31.0-35.0); Mean Corpuscular Hemoglobin 31.3 pg (27.0-33.0); Mean Corpuscular Volume 98.4 fL (80.0-98.0); NRBC Abs Auto 0.000 X10*3/uL (0.0-0.012); NRBC Pct Auto 0.0 /100WBC (0.0-0.2); Platelet Count 289 X10*3/uL (160-400); Red Blood Count 3.83 X10*6/uL (4.20-5.50); White Blood Count 9.0 X10*3/uL (4.8-10.8)
[2025-09-17 16:21] LABS: Anion Gap 14 (12-20); Blood Urea Nitrogen 17 mg/dL (9-16); Calcium 9.8 mg/dL (8.4-10.2); Carbon Dioxide 24 mmol/L (22-29); Chloride 106 mmol/L (96-108); Estimated Glomerular Filt Rate 47; Potassium 4.2 mmol/L (3.3-5.1); Sodium 140 mmol/L (135-145)
== END 2025-09-17 13:35 | disposition home or self-care (01) ==
LOC: HO.HMGCX 13:34
PROVIDERS: PCP Internal Medicine; Visit Provider Internal Medicine
DX: I10 Essential (primary) hypertension (principal); E78.5 Hyperlipidemia, unspecified; S61.452A Open bite of left hand, initial encounter; W55.01XA Bitten by cat, initial encounter
CPT/HCPCS: 36415; 73130; 80048; 85025; 86140

== ENCOUNTER 2025-09-17 13:34 | Outpatient (AMB) | payer OTHER, SELFPAY ==
--- OUTSIDE RECORDS SUMMARY | 2024-12-28 06:30 | XMS_ITS ---
Author Organization [facility] Address [address] [place] [address] Care Team Providers Care Title Insurance Sales Representative Name Role Phone Frederick COPELAND, Viola Primary Care Provider Unavaila marc De La Rosa Katharina Unavailable [phone] Saha Encounters Encounter Location Date Provider Diagnosis [facility] [address] [place] [address] 12/28/2024 Katharina Rj Plan Of Treatment Next Appt Details Provider Name:Katharina De La Rosa , 10/13/2025 02:45:00 PM, [address] [place], [address], Provider Name:Katharina De La Rosa , 01/10/2026 11:00:00 AM, [address] [place] [address], [address], Progress Notes * Radha BLANDON EDOB: (75 yo F)Acc No.[id number]:12/28/2024 Progress Note Patient: Marika IVYVONRadha Provider: Marika De La Rosa DPM :1950 A ge:74 Y S ex:Female Date:12/28/2024 Address: [address] [place] Pcp:Viola Mack MD Subjective: * Chief Complaints: [...] 12/28/2024 Generated for William ingram/Kaity/Javi on: 1 11/18/2024 07:00 PM EST
--- OUTSIDE RECORDS SUMMARY | 2025-03-29 05:30 | XMS_ITS ---
Author Organization [facility] Address [address] [place] [address] Care Team Providers Care Jewel Sawyer Name Role Phone Frederick COPELAND, Viola Primary Care Provider Unavaila marc De La Rosa Katharina Unavailable [phone] REASON FOR VISIT Seen Sooner Encounters Encounter Location Date Provider Diagnosis [facility] [address] [place] [address] 03/29/2025 Katharina Rj Plan Of Treatment Next Appt Details Provider Name:Katharina De La Rosa , 10/13/2025 02:45:00 PM, [address] [facility], [place], [address], Provider Name:Katharina De La Rosa , 01/10/2026 11:00:00 AM, [address] [place], [address], Progress Notes * Radha BLANDON EDOB: (75 yo F)Acc No.[id number]:03/29/2025 Progress Note Patient: Marika IVYVONRadha Provider: Marika De La Rosa DPM :1950 A ge:74 Y S ex:Female Date:03/29/2025 Address: [place] Pcp:Viola Mack MD Subjective: * Chief Complaints: [...] 03/29/2025 Generated for William ingram/Kaity/Javi on: 1 11/18/2024 07:00 PM EST
--- OUTSIDE RECORDS SUMMARY | 2025-06-03 09:45 | XMS_ITS ---
Author Organization [facility] Address [address] [place] [address] Care Team Providers Care Tree Topper Name Role Phone Frederick COPELAND, Viola Primary Care Provider Unavaila marc De La Rosa Katharina Unavailable [phone] Saha Encounters Encounter Location Date Provider Diagnosis [facility] [address] [place] [address] 06/03/2025 Katharina Rj Plan Of Treatment Next Appt Details Provider Name:Katharina De La Rosa , 10/13/2025 02:45:00 PM, [address] [place], [address], Provider Name:Katharina De La Rosa , 01/10/2026 11:00:00 AM, [address] [place] [address], [address], Progress Notes * Radha BLANDON EDOB: (75 yo F)Acc No.[id number]:06/03/2025 Progress Note Patient: Marika IVYVONRadha Provider: Marika De La Rosa DPM :1950 A ge:74 Y S ex:Female Date:06/03/2025 Address: [place] Pcp:Viola Mack MD Subjective: * Chief Complaints: [...] Marika De La Rosa DPM Date: 0 06/03/2025 Generated for William ingram/Kaity/Javi on: 1 11/18/2024 07:01 PM EST
--- OUTSIDE RECORDS SUMMARY | 2025-07-22 04:30 | XMS_ITS ---
Author Organization [facility] Address [address] [place] [address] Care Team Providers Care Billing Checker Name Role Phone Viola Mack MD Primary Care Provider Unavaila Katharina Lawrence Unavailable [phone] REASON FOR VISIT for sooner apt Encounters Encounter Location Date Provider Diagnosis [facility] [address] [place] [address] 07/22/2025 Katharina De La Rosa Plan Of Treatment Next Appt Details Provider Name:Katharina Beard Rj , 10/13/2025 02:45:00 PM, [address] [facility], [place], [address], Provider Name:Katharina Beard Rj , 01/10/2026 11:00:00 AM, [address] [place] [address], [phone], Progress Notes * Radha BLANDON EDOB: (75 yo F)Acc No.[id number]:07/22/2025 Progress Note Patient: Radha PÉREZ Provider: Marika De La Rosa DPM :1950 A ge:74 Y S ex:Female Date:07/22/2025 Address: [place] Pcp:Viola Mack MD Subjective: * Chief Complaints: * 1 . For sooner apt. * Medical History: Objective: * Vitals: Assessment: Plan: * Treatment: * Images: * The named appointment provid er may or may not be the originator of this progress note, and it is not deemed complete until electronically signed by the appointment provider. Sign off status: Pending * Provider: Marika De La Rosa DPM Date: 1 Generated for William ingram/Kaity/Javi on: 11/18/2024 07:01 PM EST
[2025-09-17 13:50] VITALS: BP 128/70; PULSE 65; RESP 16; TEMP 36.5; O2SAT 99; BMI 42.7
--- NOTE | 2025-09-17 13:50 | MHC.PC.OV ---
Vital Signs 09/17/25 13:50 Height 5 ft 8 in Weight 281 lb BMI 42.7 BP 128/70 Blood Pressure Location Lt brachial Position Sitting Respiration 16 Pulse 65 Pulse Source Pulse Oximeter Temp 97.7 F Temp Source Oral Pulse Oximetry (%) 99 Oxygen Delivery Method Room Air Intake Visit Reasons: cat scratch injury Intake Note: Pt is here today for a sick visit. Pt states that her cat scratched her back in August and she was seen at Urgent care and was given antibiotic. Pt states that the finger in her L hand has red spot and she went to Urgent care today again and they told her to see her PCP. Allergies metoprolol Allergy (Severe, Verified 09/14/25 13:29) Rash doxycycline Adverse Reaction (Intermediate, Verified 09/14/25 13:29) Abdominal Pain methylprednisolone Adverse Reaction (Intermediate, Verified 09/14/25 13:29) rapid heart rate erythromycin base Adverse Reaction (Unknown, Verified 09/14/25 13:29) upset stomach nausea dapagliflozin (From [facility]) Adverse Reaction (Verified 09/14/25 13:29) candidiasis Medication List - Last Reconciled 09/17/25 by Viola Mack MD amlodipine 2.5 mg PO DAILY apixaban (Eliquis) 5 mg PO BID atenolol 50 mg PO DAILY desonide 0.05% topical fexofenadine (Charis Allergy) 60 mg PO DAILY fluconazole 150 mg PO Q3D fluticasone propionate 50 mcg/actuation 1 spray intranasal BID PRN furosemide 40 mg PO .QD PRN glucosamine sulfate 750 mg PO ONCE lisinopril 20 mg PO DAILY multivitamin 1 tab PO DAILY mupirocin 2% 1 appl topical TID Tobacco use date assessed: 09/14/25 Dental Screening Dental Screen Date: 03/08/25 HPI cat scratch injury HPI Details Pt presents complaining of redness swelling and discomfort in the left index finger. Patient sustained a cat scratch injury 1 month ago between her 4th and 3rd fingers on L hand. She was seen in urgent care and prescribed Augmentin for 10 days. Patient reports a wound healed well but she noticed left index dorsal aspect swelling slightly warmth and tenderness 2 days ago. Patient denies fever, chills, difficulty using her left hand. She was seen in walk in this morning at was prescribed doxycycline. [facility] Medical History Atrial fibrillation CKD (chronic kidney disease) stage 3, GFR 30-59 ml/min SHARIF (obstructive sleep apnea) Retrognathia Chest pain Morbid obesity Hyperlipemia Annual physical exam Mammogram normal DJD (degenerative joint disease), lumbar Anxiety HTN (hypertension) Surgical History H/O bilateral cataract extraction H/O lithotripsy H/O colonoscopy Family History Father No problems noted. Mother HTN (hypertension) Social History Housing: House Alcohol intake: current Alcohol intake frequency: holidays/special occasions only Patient Tobacco Use Status: Never used Tobacco e-Cigarette/Vaping Use: Never Used Second Hand Smoke Exposure: No service: No Current occupational status: retired Cognitive needs: No Hearing needs: No Vision needs: Yes Questionnaire Thrive Questionnaire Date Thrive assessed: 12/03/24 I am a: Patient What is your living situation today?: I have a steady place to live Within the past 12 months, did the food you bought not last and you didn't have the money to get more?: Never true Within the past 12 months, did you worry whether your food would run out before you got money to buy more?: Never true Do you have trouble paying for medicines?: No Do you have trouble getting transportation to medical appointments?: No Do you have trouble paying your heating and electricity bill?: No Do you have trouble taking care of your child, family member or friend?: No Do you have trouble with day-to-day activities such as bathing, preparing meals, shopping, managing finances, etc.?: No Are you currently unemployed and looking for a job?: No Are you interested in more education?: No Please select the resources that you would like help with: None Currently or been in a relationship where the following occur: No concerns reported THRIVE Score: 0 HANNA-7 AMB Questionnaire HANNA-7 Date HANNA - 7 assessed: 03/08/25 Source: Developed by Drs. Gopi Baker, Stefani Doyle, Alfonso Carey and colleagues, with an educational jeancarlos from [employer]. Review of Systems Const All systems reviewed & are unremarkable except as noted in HPI and below Eyes Reports no additional complaints ENT Reports no additional complaints Card Reports no additional complaints Resp Reports no additional complaints GI Reports no additional complaints Reports no additional complaints Physical exam (Primary Care) Vital Signs: Last Vital Signs Temp 97.7 F 09/17/25 13:50 Pulse 65 09/17/25 13:50 Resp 16 09/17/25 13:50 BP 128/70 09/17/25 13:50 Pulse Ox 99 09/17/25 13:50 Oxygen Delivery Method Room Air 09/17/25 13:50 BMI result Body Mass Index 42.7 Tobacco/Smoking Status: Tobacco use Status Tobacco use date assessed 09/14/25 09/17/25 13:50 Patient Tobacco Use Status Never used Tobacco 09/17/25 13:50 e-Cigarette/Vaping Use Never Used 09/17/25 13:50 Thrive Assessment: Date of Thrive Assessment Date Thrive assessed 12/03/24 09/17/25 13:50 Currently or been in a relationship where the following occur: No concerns reported Const General: no acute distress HENMT Head: Yes normal to inspection Resp Effort & Inspection: normal respiratory effort Auscultation: clear to auscultation bilaterally Cardio Rhythm: regular rhythm Heart sounds: S1 normal heart sound present and S2 normal heart sound present GI Inspection: Yes normal to inspection Extrem Other: There is a slight soft tissue swelling, warmth and slight tenderness on the proximal aspect of dorsum of left index finger, there is a full range of motion in all finger joints. Coding Level of Care Code Est Pt Level 3 (34816) Diagnoses Cat bite of hand S61.459A; W55.01XA Assessment & Plan Assessment & Plan (1) Cat bite of hand: Code(s): S61.459A - Open bite of unspecified hand, initial encounter; W55.01XA - Bitten by cat, initial encounter Category: Medical Plan: Forn recurrent left hand cellulitis patient was advised to complete 7 days of doxycycline. Check CBC and CRP level and obtain x-ray of left hand to rule out bony erosions. Patient will follow-up in 1 week Orders: Orders XR hand LT min 3V Today S61.459A - Open bite of unspecified hand, initial encounter, W55.01XA - Bitten by cat, initial encounter Complete Blood Count Auto Diff Today L03.119 - Cellulitis of unspecified part of limb C Reactive Protein Today L03.119 - Cellulitis of unspecified part of limb Medications: New fluconazole 150 mg PO Q3D 2 tabs 0RF 2 doses
--- OUTSIDE RECORDS SUMMARY | 2025-09-17 19:01 | XMS_ITS | Patient Health Record ---
Author Organization [facility] Address [address] [place] [address] Care Team Providers Care Taping Foreman Name Role Phone Viola Mack MD Primary Care Provider Unavaila marc De La Rosa Katharina Unavailable [phone] Allergies Allergen (clinical drug ingredient) Drug/Non Drug [...] atherosclerosis of arteries of lower limbs (disorder) ([id number] ) Atherosclerosis of quileute artery of both lower extremities, with unspecified presence of clinical manifestation (I70.203) Active confirmed Q7(A), Q8(2B), Q9(1B,2 C) Vital Signs Blood pressure diastolic 70 mm Hg 07/06/2025 Height 5ft 8in in 07/06/2025 Blood pressure systolic 130 mm Hg 07/06/2025 Weight 265 lbs 07/06/2025 BMI 40.29 kg/m2 07/06/2025 Procedures Procedure Date Ordered Date Performed Result Body Sit e 37338-TKVLTPG NAIL, 6 OR MORE 09/21/2024 N/A 62671-Uhdcodjl Plate 09/21/2024 N/A 08196- Debride <25 sq cm 09/21/2024 N/A 66412-ZOPJXEY NAIL, 6 OR MORE 02/03/2025 N/A 08066-PKURBIU NAIL, 6 OR MORE 07/06/2025 N/A 73062-WSCR SKIN LESIONS, OVER 4 07/06/2025 N/A Encounters Encounter Location Date Provider Diagnosis [facility] [address] [place] [address] 09/21/2024 Katharina Black Pressure injury of right foot, stage 1 L89.891 ; Edema, lower extremity R60.0 ; Tinea unguium B35.1 ; Pain in right toe(s) M79.674 ; Pain in left toe(s) M79.675 and Ingrown nail L60.[address] [facility] [address] 02/03/2025 Katharina Black Tinea unguium B35.1 ; Bulla R23.8 ; Pain in right toe(s) M79.674 ; Pain in left toe(s) M79.675 and Other hammer toe(s) (acquired), left foot M20.42 [facility] [address] 07/06/2025 Katharina Black Atherosclerosis of quileute artery of both lower extremities, with unspecified [...] unguium (ICD-10 - B35.1) 07/06/2025 Atherosclerosis of quileute artery of both lower extremities, with unspecified [...] Treatment Pending Test Test Name Order Date 53271-ABUZLUB NAIL, 6 OR MORE 08/07/2021 88787-SDQBBWE NAIL, 6 OR MORE 12/11/2021 73762-JAOZEKT NAIL, 6 OR MORE 04/16/2022 36038-HIRZUPA NAIL, 6 OR MORE 08/20/2022 69685-TQUZJQD NAIL, 6 OR MORE 12/31/2022 94918-ZQYMBCN NAIL, 6 OR MORE 05/06/2023 86170-TZBEDTV NAIL, 6 OR MORE 11/14/2023 96813-MQWSYYV NAIL, 6 OR MORE 02/24/2024 94911-FGPRGDV NAIL, 6 OR MORE 06/15/2024 86016-KNCEQGL NAIL, 6 OR MORE 09/21/2024 26053-OHQHJTU NAIL, 6 OR MORE 02/03/2025 10045-BKKLWPP NAIL, 6 OR MORE 07/06/2025 28720-Ugrpimvv Plate 09/21/2024 98392-Sfxuinno Plate 05/06/2023 19606-Cdspfcxz Plate 06/15/2024 47785-Tslknfgy Plate 12/31/2022 28326- Debride <25 sq cm 12/11/2021 94275- Debride <25 sq cm 05/06/2023 10780- Debride <25 sq cm 12/31/2022 97239- Debride <25 sq cm 08/20/2022 11380- Debride <25 sq cm 04/16/2022 78027- Debride <25 sq cm 09/04/2021 75235- Debride <25 sq cm 04/16/2018 69601- Debride <25 sq cm 05/25/2021 86900- Debride <25 sq cm 08/07/2021 95969- Debride <25 sq cm 09/21/2024 91538- Debride <25 sq cm 06/15/2024 21686-NQED SKIN LESIONS, OVER 4 07/06/20 51110,E0929-WNG TENDON SHEATH/LIGAMENT 1 10/07/2020 16311,P0156-SZF TENDON SHEATH/LIGAMENT 0 05/25/2021 14923,P9154-CXA TENDON SHEATH/LIGAMENT 1 11/04/2020 Next Appt Details Provider Name:Katharina De La Rosa , 10/13/2025 02:45:00 PM, [address], [place], [address], Provider Name:Katharina De La Rosa , 01/10/2026 11:00:00 AM, [address] [place] [address], [id number], Insurance Providers Payer Name Payer Address Payer Phone Subscriber Number Group Number Insured Name Patient Relationship to Insured Coverage Start Date Coverage End Date [facility]) [address] [place] [address] [id number] [facility] Radha Blandon Self - patient [...]
--- OUTSIDE RECORDS SUMMARY | 2025-09-17 19:01 | XMS_ITS | Clinical Summary ---
Author Organization [address] Address [address] [place] [address] Phone Care Team Providers Care Electric Freight Car Operator Name Role Phone Viola Mack MD Primary Care Provider [phone] Surgical History Surgery Date Site/Laterality Comments OTHER SURGICAL HISTORY 1999 PROCEDURE: MO ERCP DESTRUCTION/LITHOTRIPSY CALCULI ANY METHOD OTHER SURGICAL HISTORY 03/22 PROCEDURE: MAMMOGRAM COLONOSCOPY 01/07 PROCEDURE: MO COLONOSCOPY STOMA DX INCLUDING COLLJ SPEC SPX; COMMENT: [facility] COLONOSCOPY 02/11/2014 PROCEDURE: MO COLONOSCOPY FLX DX W/COLLJ SPEC WHEN PFRMD; COMMENT: normal Medical History Medical History Date Comments Calculus of kidney DX:Calculus o f kidney Dermatophytosis of nail 04/04/2006 DX:[place] tophytosis of nail Primary localized osteoarthr osis, [...] is recommended in 1 year. MAMMO LOCATION: [facility], [address] [place] [address], [id number], . -------- FINAL REPORT -------- Dictated By: Leena Tejeda Dictated Date: 05/24/2025 18:09 ET Assigned Physician: Leena Tejeda Reviewed and Electronically Signed By: Leena Tejeda Signed Date: 05/24/2025 18:09 ET Workstation ID: [id number] Transcribed By: Self Edit Transcribed Date: 05/24/2025 [...] is recommended in 1 year. MAMMO LOCATION: [facility], [address] [place] [address], [facility], . -------- FINAL REPORT -------- Dictated By: Leena Tejeda Dictated Date: 05/24/2025 18:09 ET Assigned Physician: Leena Tejeda Reviewed and Electronically Signed By: Leena Tejeda Signed Date: 05/24/2025 18:09 ET Workstation ID: [id number] Transcribed By: Self Edit Transcribed Date: 05/24/2025 [...] having normal bone density. [facility] Department of Internal Medicine [...] having normal bone density. [facility] Department of Internal Medicine [...] Most Recently Relevant to Health Maintenance [place] [facility] [place] [id number] Care Teams Electric Freight Car Operator Relationship Specialty Start Date End Date Viola Mack MD [address] [facility] [address] PCP - General Internal Medicine 05/21/25
--- OUTSIDE RECORDS SUMMARY | 2025-09-17 19:01 | XMS_ITS | Data Portability ---
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 Active 2020 Other specified disorders of temporoma ndibular joint; Note: Date Diagnosed : 05/27/2021 2:08 PM (M26.69) Not Available [facility] 4 03:16:50 Dizziness and giddiness 509039008 Active 2021 Dizziness and giddiness ; Note: Date Diagnosed : 03/27/2022 5:05 PM (R42) Not Available [facility] 4 03:16:49 Allergic rhinitis 99438144 Active 2021 Other allergic rhinitis; Note: Date Diagnosed : 03/27/2022 5:05 PM (J30.89) Not Available [facility] 4 03:16:49 Nasal congestio n 55917221 Active 2021 Nasal congestio n; Note: Date Diagnosed : 03/27/2022 5:05 PM (R09.81) Not Available [facility] 4 03:16:49 Benign paroxysma l positiona l vertigo 281890442 Active 2021 Benign paroxysma l vertigo, unspecifi ed ear; Note: Date Diagnosed : 03/27/2022 5:17 PM (H81.10) Not Available [facility] 4 03:16:50 Posterior rhinorrhe a 26313999 Active 2021 Postnasal drip; Note: Date Diagnosed : 06/27/2022 12:20 PM (R09.82) Not Available [facility] 4 03:16:50 Bilateral earache 186707162 Active 2022 Otalgia, bilateral ; Note: Date Diagnosed : 06/19/2023 2:26 PM (H92.03) Not Available [facility] 4 03:16:50 Pain of temporoma ndibular joint 21320567 Active 2023 SAMUEL FONG PA-C [address] [place] [address], [place], [address] , [place] - [facility] 4 11:24:38 Problem Notes None recorded. Procedures Surgical History Date Name Laterality Status Provider Name and Address Organization Details Recorded Time lithotripsy completed Cherry Roberts [place] - [facility] 05/06/2024 10:31:08 Imaging Results None recorded. Procedure Notes None recorded. Medical Equipment None Reported. Allergies Allergen ID Allergen Name Allergen Category Reaction Reaction Severity Criticality Documentation Date Start Date Code Code System Note Provider Name and Address Organization Details Recorded Time 57325 erythromy omar medicatio n other Not available Not available 02/18/2024 4053 RxNorm React ion: Unkno wn; Not Available [facility] 4 00:48:36 Medications Name Sig Start Date Stop Date Status Note LastModified by Organization Details LastModified Time amoxicill in 500 mg capsule 05/06 completed Medicati on ID: [id number] B rand Name: amoxicil shameka Send Method: E-Prescr ibed Sub s Allowed: subs OK Speci al Instruct ion: TAKE 1 CAPSULE BY MOUTH THREE TIMES A DAY Medi cationGe nericNam e: amoxicil shameka Medi cation ID: [id number] B rand Name: amoxicil shameka Send Method: E-Prescr ibed Sub s Allowed: subs OK Speci al Instruct ion: TAKE 1 CAPSULE BY MOUTH THREE TIMES A DAY Medi cationGe nericNam e: amoxicil shameka Not Available Not Available Not Available gabapenti n 600 mg tablet active Medicati on ID: [id number] B rand Name: gabapent in Send Method: [...] 1 gram tablet active Medicati on ID: [id number] B rand Name: valacycl ovir Sen d Method: E-Prescr ibed Sub s Allowed: subs OK Speci al Instruct ion: TAKE 1 TABLET BY MOUTH 3 TIMES A DAY Medi cationGe nericNam e: valacycl ovir Not Available Not Available Not Available lisinopri l 20 mg tablet active Medicati on ID: [id number] B rand Name: lisinopr il Send Method: [...] 10 mg tablet active Medicati on ID: 233184 B rand Name: amlodipi ne Send Method: [...] % topical ointment active Medicati on ID: 674392 B rand Name: nicho moore Send Method: [...] as directed 2021 active Medicati on ID: [id number] B rand Name: azelasti ne Send Method: [...] applicato r 05/06 completed Medicati on ID: [id number] B rand Name: hydrocor tisone S end Method: E-Prescr ibed Sub s Allowed: subs OK Speci al Instruct ion: APPLY TOPICALL Y 4 TIMES DAILY NEEDED M edicamary nGtranic Name: torsten jeff n ID: [id number] B rand Name: hydrocor tisone S end [...] ICD10 Code Diagnosis IMO Codes Diagnosis Note 66701 SAMUEL FONG PA-C [facility] [address] [address] 05/06/2024 10:20:40 05/06/2024 10:55:09 Bilateral earache 062873586 H92.03 Pain of temporomandibular joint 90289553 M26.629 Health Concerns Section Related Observation LastModified by Organization Detai ls LastModified Time None Recorded Concern Status LastModified by Organization Details LastModified Time None Recorded Advance Directives Directive None Recorded Payers Insurance Date Sequence Insurance Name Policy Number Policy Gerard Covered Member ID Gerard Member ID Guarantor Name 05/06/2024 1 [facility]AN (INDEMNITY) [id number] Radha Blandon [id number] Radha Blandon Notes Date Note Type Note [...] drainage within the ears. LUIS PALACIO MD [address] [place] [address], [place], [address], [facility] - [facility] 05/06/2024 12:41:25 OBGyn Episode No OBEpisode recorded.
--- OUTSIDE RECORDS SUMMARY | 2025-09-17 19:01 | XMS_ITS | Patient Health Record ---
Author Organization [facility] Address [address] [place] [address] Support Name Relationship Address Phone DEVORA DUBOSE Guarantor Unknown [phone] Reason For Referral No Information Medications Medication SIG (Take, Route, Fr equency, Duration) Notes Start Date End Date Status Fluconazole 50MG 5ML ORAL WEEKLY; Duration: 7 Cas-MJ 12/05 Active Immunizations Vaccine Route Administration Date Status Comme nts Influenza, live, intranasal Intramuscular 12/19/2011 Pendi ng Problems Problem Type SNOMED Code ICD Code Onset Dates Problem Status W/U Status Risk Notes Problem Gynecological examination normal (583656376538717) Routine gynecological examination (V72.31) Active confirmed Diag Plan Of Treatment No Information Insurance Providers Payer Name Payer Address Payer Phone Subscriber Number Group Number Insured Name Patient Relationship to Insured Coverage Start Date Coverage End Date [employer] INDEMNITY PLAN [address] [place], [place] [id number] DEVORA DUBOSE Self - patient is the insured
== END 2025-09-17 15:13 | disposition home or self-care (01) ==
LOC: HO.HMCC 13:35
PROVIDERS: PCP Internal Medicine; Visit Provider Internal Medicine
DX: S61.459A Open bite of unspecified hand, initial encounter (principal); W55.01XA Bitten by cat, initial encounter

== ENCOUNTER → 2025-09-17 14:30 | Outpatient (BNV) | payer OTHER, SELFPAY | PROVIDERS: PCP Internal Medicine; Visit Provider Radiology Diagnostic Radiology | DX: R22.32 Localized swelling, mass and lump, left upper limb (principal); W55.01XD Bitten by cat, subsequent encounter; S61.452D Open bite of left hand, subsequent encounter | CPT/HCPCS: 73130 ==

== ENCOUNTER 2025-09-24 09:20 | Outpatient (AMB) | payer OTHER, SELFPAY ==
--- OUTSIDE RECORDS SUMMARY | 2024-12-28 06:30 | XMS_ITS ---
Author Organization [facility] Address [address] [place] [address] Care Team Providers Care Physician President Name Role Phone Frederick COPELAND, Viola Primary Care Provider Unavaila marc De La Rosa Katharina Unavailable [phone] Saha Encounters Encounter Location Date Provider Diagnosis [facility] [address] [place] [address] 12/28/2024 Katharina Rj Plan Of Treatment Next Appt Details Provider Name:Katharina De La Rosa , 10/13/2025 02:45:00 PM, [address] [place], [address], Provider Name:Katharina De La Rosa , 01/10/2026 11:00:00 AM, [address] [place] [address], [address], Progress Notes * Radha BLANDON EDOB: (75 yo F)Acc No.[id number]:12/28/2024 Progress Note Patient: Marika IVYVONRadha Provider: Marika De La Rosa DPM :1950 A ge:74 Y S ex:Female Date:12/28/2024 Address: [address] [place] Pcp:Viola Mack MD Subjective: * Chief Complaints: * [address] Saha. * Medical History: Objective: * Vitals: Assessment: Plan: * Treatment: * Images: * The named appointment provid er may or may not be the originator of this progress note, and it is not deemed complete until electronically signed by the appointment provider. Sign off status: Pending * Provider: Marika De La Rosa DPM Date: 0 12/28/2024 Generated for William ingram/Kaity/Javi on: 1 11/25/2024 09:57 AM EST
--- OUTSIDE RECORDS SUMMARY | 2025-03-29 05:30 | XMS_ITS ---
Author Organization [facility] Address [address] [place] [address] Care Team Providers Care Middle School Librarian Name Role Phone Frederick COPELAND, Viola Primary Care Provider Unavaila marc De La Rosa Katharina Unavailable [phone] REASON FOR VISIT Seen Sooner Encounters Encounter Location Date Provider Diagnosis [facility] [address] [place] [address] 03/29/2025 Katharina Rj Plan Of Treatment Next Appt Details Provider Name:Katharina De La Rosa , 10/13/2025 02:45:00 PM, [address] [facility], [place], [address], Provider Name:Katharina De La Rosa , 01/10/2026 11:00:00 AM, [address] [place], [address], Progress Notes * Radha BLANDON EDOB: (75 yo F)Acc No.[id number]:03/29/2025 Progress Note Patient: Marika IVYVONRadha Provider: Marika De La Rosa DPM :1950 A ge:74 Y S ex:Female Date:03/29/2025 Address: [place] Pcp:Viola Mack MD Subjective: * Chief Complaints: * 1 . Seen Sooner. * Medical History: Objective: * Vitals: Assessment: Plan: * Treatment: * Images: * The named appointment provid er may or may not be the originator of this progress note, and it is not deemed complete until electronically signed by the appointment provider. Sign off status: Pending * Provider: Marika De La Rosa DPM Date: 0 03/29/2025 Generated for William ingram/Kaity/Javi on: 1 11/25/2024 09:57 AM EST
--- OUTSIDE RECORDS SUMMARY | 2025-06-03 09:45 | XMS_ITS ---
Author Organization [facility] Address [address] [place] [address] Care Team Providers Care Cardroom Plastic Card Grader Name Role Phone Frederick COPELAND, Viola Primary Care Provider Unavaila marc De La Rosa Katharina Unavailable [phone] Saha Encounters Encounter Location Date Provider Diagnosis [facility] [address] [place] [address] 06/03/2025 Katharina Rj Plan Of Treatment Next Appt Details Provider Name:Katharina De La Rosa , 10/13/2025 02:45:00 PM, [address] [place], [address], Provider Name:Katharina De La Rosa , 01/10/2026 11:00:00 AM, [address] [place] [address], [address], Progress Notes * Radha BLANDON EDOB: (75 yo F)Acc No.[id number]:06/03/2025 Progress Note Patient: Marika IVYVONRadha Provider: Marika De La Rosa DPM :1950 A ge:74 Y S ex:Female Date:06/03/2025 Address: [place] Pcp:Viola Mack MD Subjective: * Chief Complaints: [...] 06/03/2025 Generated for William ingram/Kaity/Javi on: 1 11/25/2024 09:58 AM EST
--- OUTSIDE RECORDS SUMMARY | 2025-07-22 04:30 | XMS_ITS ---
Author Organization [facility] Address [address] [place] [address] Care Team Providers Care Die Sinker Apprentice Name Role Phone Viola Mack MD Primary Care Provider Unavaila Katharina Lawrence Unavailable [phone] REASON FOR VISIT for sooner apt Encounters Encounter Location Date Provider Diagnosis [facility] [address] [place] [address] 07/22/2025 Katharina De La Rosa Plan Of Treatment Next Appt Details Provider Name:Katharina Beard Rj , 10/13/2025 02:45:00 PM, [address] [facility], [place], [address], Provider Name:Katharina Beard Rj , 01/10/2026 11:00:00 AM, [address] [place] [address], [phone], Progress Notes * Radha BLANDON EDOB: (75 yo F)Acc No.[id number]:07/22/2025 Progress Note Patient: Radha PÉREZ Provider: Marika De La Rosa DPM :1950 A ge:74 Y S ex:Female Date:07/22/2025 Address: [place] Pcp:Viola Mack MD Subjective: * Chief Complaints: [...] Date: 1 Generated for William ingram/Kaity/Javi on: 11/25/2024 09:57 AM EST
[2025-09-24 09:30] VITALS: BP 124/78; PULSE 66; RESP 16; O2SAT 98; BMI 42.7
--- NOTE | 2025-09-24 09:30 | A.OFFPC_ITS ---
Vital Signs 09/24/25 09:30 Height 5 ft 8 in Weight 281 lb BMI 42.7 BP 124/78 Blood Pressure Location Lt brachial Position Sitting Respiration 16 Pulse 66 Pulse Source Pulse Oximeter Pulse Oximetry (%) 98 Oxygen Delivery Method Room Air Intake Visit Reasons: 1 week follow up Intake Note: Pt is here today for 1 week follow up visit. Allergies metoprolol Allergy (Severe, Verified 09/24/25 09:36) Rash doxycycline Adverse Reaction (Intermediate, Verified 09/24/25 09:36) Abdominal Pain methylprednisolone Adverse Reaction (Intermediate, Verified 09/24/25 09:36) rapid heart rate erythromycin base Adverse Reaction (Unknown, Verified 09/24/25 09:36) upset stomach nausea dapagliflozin (From [facility]) Adverse Reaction (Verified 09/24/25 09:36) candidiasis Tobacco use date assessed: 09/24/25 Fall risk assessment: 1 Fall in past year Last assessed Fall Risk: 09/24/25 Dental Screening Dental Screen Date: 03/08/25 HPI 1 week follow up HPI Details Patient presents for the follow-up of left hand cellulitis. She completed course of doxycycline. She denies any residual pain or swelling. There is a slight skin discoloration over her knuckles. Hypertension is controlled on current medications. [facility] Medical History Atrial fibrillation CKD (chronic kidney disease) stage 3, GFR 30-59 ml/min SHARIF (obstructive sleep apnea) Retrognathia Chest pain Morbid obesity Hyperlipemia Annual physical exam Mammogram normal DJD (degenerative joint disease), lumbar Anxiety HTN (hypertension) Surgical History H/O bilateral cataract extraction H/O lithotripsy H/O colonoscopy Family History Father No problems noted. Mother HTN (hypertension) Social History Housing: House Alcohol intake: current Alcohol intake frequency: holidays/special occasions only Patient Tobacco Use Status: Never used Tobacco e-Cigarette/Vaping Use: Never Used Second Hand Smoke Exposure: No service: No Current occupational status: retired Cognitive needs: No Hearing needs: No Vision needs: Yes Questionnaire Thrive Questionnaire Date Thrive assessed: 12/03/24 I am a: Patient What is your living situation today?: I have a steady place to live Within the past 12 months, did the food you bought not last and you didn't have the money to get more?: Never true Within the past 12 months, did you worry whether your food would run out before you got money to buy more?: Never true Do you have trouble paying for medicines?: No Do you have trouble getting transportation to medical appointments?: No Do you have trouble paying your heating and electricity bill?: No Do you have trouble taking care of your child, family member or friend?: No Do you have trouble with day-to-day activities such as bathing, preparing meals, shopping, managing finances, etc.?: No Are you currently unemployed and looking for a job?: No Are you interested in more education?: No Currently or been in a relationship where the following occur: No concerns reported THRIVE Score: 0 HANNA-7 AMB Questionnaire HANNA-7 Date HANNA - 7 assessed: 03/08/25 Source: Developed by Drs. Gopi Baker, Stefani Doyle, Alfonso Carey and colleagues, with an educational jeancarlos from [employer]. Review of Systems Const All systems reviewed & are unremarkable except as noted in HPI and below ENT Reports no additional complaints Card Reports no additional complaints Resp Reports no additional complaints GI Reports no additional complaints Reports no additional complaints Physical exam (Primary Care) Vital Signs: Last Vital Signs Pulse 66 09/24/25 09:30 Resp 16 09/24/25 09:30 BP 124/78 09/24/25 09:30 Pulse Ox 98 09/24/25 09:30 Oxygen Delivery Method Room Air 09/24/25 09:30 BMI result Body Mass Index 42.7 Tobacco/Smoking Status: Tobacco use Status Tobacco use date assessed 09/24/25 09/24/25 09:40 Patient Tobacco Use Status Never used Tobacco 09/24/25 09:30 e-Cigarette/Vaping Use Never Used 09/24/25 09:30 Thrive Assessment: Date of Thrive Assessment Date Thrive assessed 12/03/24 09/24/25 09:30 Currently or been in a relationship where the following occur: No concerns reported Const General: no acute distress HENMT Face and sinus: Yes normal facial exam Resp Effort & Inspection: normal respiratory effort Auscultation: clear to auscultation bilaterally Cardio Rhythm: regular rhythm Heart sounds: S1 normal heart sound present and S2 normal heart sound present GI Inspection: Yes normal to inspection Coding Level of Care Code Est Pt Level 3 (90389) Diagnoses HTN (hypertension) I10 Cat bite of hand S61.459A; W55.01XA Assessment & Plan Assessment & Plan (1) HTN (hypertension): Code(s): I10 - Essential (primary) hypertension Category: Medical Plan: Continue current medications (2) Cat bite of hand: Code(s): S61.459A - Open bite of unspecified hand, initial encounter; W55.01XA - Bitten by cat, initial encounter Category: Medical Plan: Hand cellulitis Resolved
--- OUTSIDE RECORDS SUMMARY | 2025-09-24 09:58 | XMS_ITS | Clinical Summary ---
Author Organization [address] Address [address] [place] [address] Phone Care Team Providers Care Design Printer Balloon Name Role Phone Viola Mack MD Primary Care Provider [phone] Surgical History Surgery Date Site/Laterality Comments OTHER SURGICAL HISTORY 1999 PROCEDURE: PA ERCP DESTRUCTION/LITHOTRIPSY CALCULI ANY METHOD OTHER SURGICAL HISTORY 03/22 PROCEDURE: MAMMOGRAM COLONOSCOPY 01/07 PROCEDURE: PA COLONOSCOPY STOMA DX INCLUDING COLLJ SPEC SPX; COMMENT: [facility] COLONOSCOPY 02/11/2014 PROCEDURE: PA COLONOSCOPY FLX DX W/COLLJ SPEC WHEN PFRMD; COMMENT: normal Medical History Medical History Date Comments Calculus of kidney DX:Calculus o f kidney Dermatophytosis of nail 04/04/2006 DX:Lohman tophytosis of nail Primary localized osteoarthr osis, [...] is recommended in 1 year. MAMMO LOCATION: [facility], [address] [place] [address], [address], . -------- FINAL REPORT -------- Dictated By: Leena Tejeda Dictated Date: 05/24/2025 18:09 ET Assigned Physician: Leena Tejeda Reviewed and Electronically Signed By: Leena Tejeda Signed Date: 05/24/2025 18:09 ET Workstation ID: [id number] Transcribed By: Self Edit Transcribed Date: 05/24/2025 [...] is recommended in 1 year. MAMMO LOCATION: [facility], [address] [place] [address], [facility], . -------- FINAL REPORT -------- Dictated By: Leena Tejeda Dictated Date: 05/24/2025 18:09 ET Assigned Physician: Leena Tejeda Reviewed and Electronically Signed By: Leena Tejeda Signed Date: 05/24/2025 18:09 ET Workstation ID: [id number] Transcribed By: Self Edit Transcribed Date: 05/24/2025 [...] Most Recently Relevant to Health Maintenance [facility] [place] [id number] Care Teams Design Printer Balloon Relationship Specialty Start Date End Date Viola Mack MD [address] [place] [address] PCP - General Internal Medicine 05/21/25
--- OUTSIDE RECORDS SUMMARY | 2025-09-24 09:58 | XMS_ITS | Patient Health Record ---
Author Organization [facility] Address [address] [place] [address] Support Name Relationship Address Phone DEVORA DUBOSE Guarantor Unknown [phone] Reason For Referral No Information Medications Medication SIG (Take, Route, Fr equency, Duration) Notes Start Date End Date Status Fluconazole 50MG 5ML ORAL WEEKLY; Duration: 7 Cas-MJ 12/05 Active Immunizations Vaccine Route Administration Date Status Comme nts Influenza, live, intranasal Intramuscular 12/19/2011 Pendi ng Problems Problem Type SNOMED Code ICD Code Onset Dates Problem Status W/U Status Risk Notes Problem Gynecological examination normal (142504567340419) Routine gynecological examination (V72.31) Active confirmed Diag Plan Of Treatment No Information Insurance Providers Payer Name Payer Address Payer Phone Subscriber Number Group Number Insured Name Patient Relationship to Insured Coverage Start Date Coverage End Date [facility] INDEMNITY PLAN [address] [place], [place] [id number] DEVORA DUBOSE Self - patient is the insured
--- OUTSIDE RECORDS SUMMARY | 2025-09-24 09:58 | XMS_ITS | Patient Health Record ---
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 Name Role Phone Viola Mack MD Primary Care Provider Unavaila marc De La Rosa Katharina Unavailable [phone] Allergies Allergen (clinical drug ingredient) Drug/Non Drug [...] atherosclerosis of arteries of lower limbs (disorder) (21818087776398249 ) Atherosclerosis of [place] artery of both lower extremities, with unspecified presence of clinical manifestation (I70.203) Active confirmed Q7(A), Q8(2B), Q9(1B,2 C) Vital Signs Blood pressure diastolic 70 mm Hg 07/06/2025 Height 5ft 8in in 07/06/2025 Blood pressure systolic 130 mm Hg 07/06/2025 Weight 265 lbs 07/06/2025 BMI 40.29 kg/m2 07/06/2025 Procedures Procedure Date Ordered Date Performed Result Body Sit e 92283-JACXZWM NAIL, 6 OR MORE 02/03/2025 N/A 40039-CZYYEOY NAIL, 6 OR MORE 07/06/2025 N/A 94540-GYBI SKIN LESIONS, OVER 4 07/06/2025 N/A Encounters Encounter Location Date [facility] [address] [place] [address] 02/03/2025 Katharina Black Tinea unguium B35.1 ; Bulla R23.8 ; Pain in right toe(s) M79.674 ; Pain in left toe(s) M79.675 and Other hammer toe(s) (acquired), left foot M20.[address] [facility] [address] [address] 07/06/2025 Katharina Black Atherosclerosis of [place] artery of both lower extremities, with unspecified presence of clinical manifestation I70.203 ; Tinea unguium B35.1 ; Pain in right toe(s) M79.674 and Pain in left toe(s) M79.675 Assessments Encounter Date Diagnosis (ICD Code) Assessment Notes Treatment Notes Treatment Clinical Notes Section Notes 02/03/2025 Tinea unguium (ICD-10 - B35.1) 02/03/2025 Bulla (ICD-10 - R23.8) 07/06/2025 Tinea unguium (ICD-10 - B35.1) 07/06/2025 Atherosclerosis of [place] artery of both lower extremities, with unspecified presence of clinical manifestation (ICD-10 - I70.203) Q7(A), Q8(2B), Q9(1B,2C) 07/06/2025 Pain in right toe(s) (ICD-10 - M79.674) 02/03/2025 Pain in right toe(s) (ICD-10 - M79.674) 07/06/2025 Pain in left toe(s) (ICD-10 - M79.675) 02/03/2025 Pain in left toe(s) (ICD-10 - M79.675) 02/03/2025 Other hammer toe(s) (acquired), left foot (ICD-10 - M20.42) Plan Of Treatment Pending Test Test Name Order Date 29918-BZHSLEQ NAIL, 6 OR MORE 08/07/2021 73616-FQPNRXE NAIL, 6 OR MORE 12/11/2021 99543-WFXHMFQ NAIL, 6 OR MORE 04/16/2022 03936-YDLNVLR NAIL, 6 OR MORE 08/20/2022 59034-IQGYPWM NAIL, 6 OR MORE 12/31/2022 20386-OWSSPMH NAIL, 6 OR MORE 05/06/2023 00863-UWIHZOQ NAIL, 6 OR MORE 11/14/2023 58137-CVKYFJI NAIL, 6 OR MORE 02/24/2024 80986-ANSNXTH NAIL, 6 OR MORE 06/15/2024 49997-SXGHQIO NAIL, 6 OR MORE 09/21/2024 40947-JECMVCP NAIL, 6 OR MORE 02/03/2025 93408-KEMJVNS NAIL, 6 OR MORE 07/06/2025 51343-Ptawgjga Plate 09/21/2024 42787-Kzvwexna Plate 05/06/2023 51570-Wffklfpk Plate 06/15/2024 23249-Yfemsyhx Plate 12/31/2022 39348- Debride <25 sq cm 12/11/2021 16578- Debride <25 sq cm 05/06/2023 16506- Debride <25 sq cm 12/31/2022 25889- Debride <25 sq cm 08/20/2022 09758- Debride <25 sq cm 04/16/2022 09499- Debride <25 sq cm 09/04/2021 15041- Debride <25 sq cm 04/16/2018 04442- Debride <25 sq cm 05/25/2021 77160- Debride <25 sq cm 08/07/2021 85957- Debride <25 sq cm 09/21/2024 50058- Debride <25 sq cm 06/15/2024 43628-SIZM SKIN LESIONS, OVER 4 07/06/20 25 97695,A2287-MFB TENDON SHEATH/LIGAMENT 1 10/07/2020 99679,G4889-UPV TENDON SHEATH/LIGAMENT 0 05/25/2021 56884,M2634-ZCE TENDON SHEATH/LIGAMENT 1 11/04/2020 Next Appt Details Provider Name:Katharina De La Rosa , 10/13/2025 02:45:00 PM, [address] [facility], [place], [address], Provider Name:Katharina De La Rosa , 01/10/2026 11:00:00 AM, [address] [place], [address], Insurance Providers Payer Name Payer Address Payer Phone Subscriber Number Group Number Insured Name Patient Relationship to Insured Coverage Start Date Coverage End Date [facility] [address] [place], [place] [phone] [id number] Radha Blandon Self - patient is [...] M 19.072 Surgical History Surgery Date(Month/Year) Lithotripsy 2018 eye surgery, lenses 09/28 Hospitalization History Reason Date(Month/Year) [facility]- rapid heart rate 10/11/23
--- OUTSIDE RECORDS SUMMARY | 2025-09-24 09:58 | XMS_ITS | Clinical Summary ---
Author Organization [facility] 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 Name Role Phone Viola Mack MD Primary Care Provider [phone] Allergies Active Allergy Reactions Criticality Noted Date [...] 1 (one) time each day 02/04/2025 Active furosemide (LASIX) 20 MG tablet Take 20 mg by mouth 1 (one) time each day 07/06/2025 Active Active Problems Problem Noted Date Diagnosed Date Hypertension 07/22/2023 Localized edema 07/22/2023 Personal history of kidney stones 07/22/2023 Stage 3a chronic kidney disease 01/22/2023 Encounters Date Type Department Care Team Description 08/09/2025 10:20 AM EST Office Visit [facility] [address] [place] [address] Justin Espitia MD Stage 3a chronic kidney disease (HCC) (Primary Dx); Personal history of kidney stones; Localized edema; Hypertension 08/07/2025 Orders Only [facility] [address] [place] [address] Justin Espitia MD Stage 3a chronic kidney [...] Sign Reading Time Taken Comments Blood Pressure 118/80 08/09/2025 10:09 AM EST Pulse 69 08/09/2025 10:09 AM EST Temperature - - Respiratory Rate - - Oxygen Saturation 99% 08/09/2025 10:09 AM EST Inhaled Oxygen Concentration - - Weight 124 kg (274 lb 3.2 oz) 08/09/2025 10:09 A M EST Height 175.3 cm (5' 9 ) 07/27/2024 10:20 AM EDT Body Mass Index 40.49 07/27/2024 10:20 AM EDT Plan of Treatment Upcoming Encounters Date Type Department Care Team (Late st Contact Info) Description 02/07/2026 10:20 AM EDT Office Visit [facility] [address] [place] [id number] Justin Espitia MD [address] [address] Health Maintenance Due Date Last [...] Procedure Name Priority Date/Time Associated Diagnosis Comments PROTEIN / CREATININE RATIO, URINE Routine 07/30/2025 4:12 PM EDT Stage 3a chronic kidney disease (HCC) Personal history of kidney stones Localized edema Hypertension PTH, INTACT (HC) Routine 07/30/2025 4:03 PM EDT CBC AND DIFFERENTIAL Routine 07/30/2025 4:03 PM EDT Stage 3a chronic kidney disease (HCC) Personal history of kidney stones Localized edema Hypertension VITAMIN D 25 HYDROXY Routine 07/30/2025 4:03 PM EDT Stage 3a chronic kidney disease (HCC) Personal history of kidney stones Localized edema Hypertension PHOSPHATE ( PHOSPHORUS) Routine 07/30/2025 4:03 PM EDT Stage 3a chronic kidney disease (HCC) Personal history of kidney stones Localized edema Hypertension MAGNESIUM Routine 07/30/2025 4:03 PM EDT Stage 3a chronic kidney disease (HCC) Personal history of kidney stones Localized edema Hypertension URIC ACID Routine 07/30/2025 4:03 PM EDT Stage 3a chronic kidney disease (HCC) Personal history of kidney stones Localized edema Hypertension COMPREHENSIVE METABOLIC PANEL Routine 07/30/2025 4:03 PM EDT Stage 3a chronic kidney disease (HCC) Personal history of kidney stones Localized edema Hypertension from Last 3 Months Results * Protein, Total, Random Urine w/Creatinine (Protein/Creat Ratio) (07/30/2025 4:12 PM EDT) Creatinine, Urine 88.78 mg/dL See order comments Protein Urine Random <7 <12 mg/dL See order comments Protein/Creatin ine Ratio, Urine TNP <0.2 See order comments Comment: Unable to calculate urine protein creatinine ratio due to low creatinine or protein result. Urine specimen (specimen) Urine specimen obtained by clean catch procedure / Unknown 07/30/2025 4:12 PM EDT 07/30/2025 4:12 PM EDT us Justin Espitia MD LAB URINE ORDERABLES Final Re sult Performing Organization Address [facility] de Phone Number [place] See order comments [place] [address] * (ABNORMAL) PTH, Intact (07/30/2025 4:03 PM EDT) Parathyroid Hormone, Intact 79.4(H) 8.7 - 77.1 pg/mL See order comments 07/30/2025 4:03 PM EDT 07/30/2025 4:03 PM EDT us Justin Espitia MD LAB BLOOD ORDERABLES Final Re sult Performing Organization Address [facility] de Phone Number [place] See order comments [place] [address] * Vitamin D 25 Hydroxy (07/30/2025 4:03 PM EDT) Vitamin D, 25-Hydroxy 59.8 >30 ng/mL See order comments Comment: Health Based Reference Values* < 20 ng/mL Deficient 20-30 ng/mL Insufficient > 30 ng/mL Sufficient *Marry AMCKAY. N Engl J Med. 2007;[id number] There is no well-established upper level of normal vitamin D levels. Some laboratories use 50 ng/mL as an upper limit of normal. However, toxicity is patient-dependent and may occur at any level. Careful correlation with the patient's presentation is necessary and, if there is concern for vitamin D toxicity, treatment should be considered irrespective of the serum level. Care must be taken in interpreting Vitamin D results from different laboratories and methodologies. Published data demonstrated that results from patients undergoing hemodialysis may show a negative bias when tested with various automated 25-OH vitamin D assays when compared to LC-MS/MS. When testing samples from patients whose predominant form of Vitamin D is Vitamin D2, such as patients receiving Vitamin D2 supplementation, results that are subtherapeutic should be confirmed with another method such as LC-MS/MS. Blood specimen (specimen) Venous blood / Unknown 07/30/2025 4:03 PM EDT 07/30/2025 4:03 PM EDT us Justin Espitia MD LAB BLOOD ORDERABLES Final Re sult [place] See order comments [place] [address] * (ABNORMAL) CBC and Differential (07/30/2025 4:03 PM EDT) WBC 11.7(H) 4.8 - 10.8 X10*3/uL See order comments RBC 3.99(L) 4.20 - 5.50 X10*6/uL See order comments Hgb 12.5 12.0 - 16.0 g/dl See order comments Hematocrit 38.7 37.0 - 47.0 % See order comments MCV 97.0 80.0 - 98.0 fL See order comments MCH 31.3 27.0 - 33.0 pg See order comments MCHC 32.3 31.0 - 35.0 g/dl See order comments RDW 14.3 11.0 - 16.0 % See order comments Platelets 285 160 - 400 X10*3/uL See order comments MPV 10.4 9.4 - 12.3 fL See order comments Neutrophils % Auto 83.2(H) 45 - 73 % See order comments Immature Granulocytes 0.5(H) 0.0 - 0.4 % See order comments Lymphocytes Relative 8.2(L) 20 - 40 % See order comments Monocytes 7.7 2 - 11 % See order comments Eosinophils Relative 0.3 0 - 4 % See order comments Basophils Relative 0.1 0 - 2 % See order comments nRBC Count 0.0 0.0 - 0.2 /100WBC See order comments Neutrophils Absolute 9.7(H) 2.0 - 8.3 x10*3/uL See order comments Immature Grans (Absolute) 0.06(H) 0.00 - 0.03 X10*3/uL See order comments Lymphocytes Absolute 1.0(L) 1.2 - 4.9 X10*3/uL See order comments Monocytes Absolute 0.9 0.1 - 1.2 X10*3/uL See order comments Eosinophils Absolute 0.0 0.0 - 0.4 X10*3/uL See order comments Basophils Absolute 0.0 0.0 - 0.2 X10*3/uL See order comments NRBC Absolute 0.000 0.0 - 0.012 X10*3/uL See order comments Blood specimen (specimen) Venous blood / Unknown 07/30/2025 4:03 PM EDT 07/30/2025 4:03 PM EDT us Justin Espitia MD LAB BLOOD ORDERABLES Final Re sult Performing Organization Address [facility] Co de Phone Number [place] See order comments [place] [address] * (ABNORMAL) Uric Acid (07/30/2025 4:03 PM EDT) Uric Acid 6.0(H) 2.4 - 5.7 mg/dL See order comments Blood specimen (specimen) Venous blood / Unknown 07/30/2025 4:03 PM EDT 07/30/2025 4:03 PM EDT us Justin Espitia MD LAB BLOOD ORDERABLES Final Re sult [place] See order comments [place] [address] * Phosphorus (07/30/2025 4:03 PM EDT) Phosphorus, Serum 3.6 2.7 - 4.5 mg/dL See order comments Blood specimen (specimen) Venous blood / Unknown 07/30/2025 4:03 PM EDT 07/30/2025 4:03 PM EDT us Justin Espitia MD LAB BLOOD ORDERABLES Final Re sult Performing Organization Address City/[facility]/ZIP Co de Phone Number [place] See order comments [place] [address] * Magnesium (07/30/2025 4:03 PM EDT) Magnesium 2.3 1.6 - 2.6 mg/dL See order comments Blood specimen (specimen) Venous blood / Unknown 07/30/2025 4:03 PM EDT 07/30/2025 4:03 PM EDT us Justin Espitia MD LAB BLOOD ORDERABLES Final Re sult Performing Organization Address [facility] de Phone Number [place] See order comments [place] [address] * (ABNORMAL) Comprehensive Metabolic Panel (07/30/2025 4:03 PM EDT) Sodium 138 135 - 145 mmol/L See order comments Potassium 4.4 3.3 - 5.1 mmol/L See order comments Chloride 108 96 - 108 mmol/L See order comments Bicarbonate (CO2) 22 22 - 29 mmol/L See order comments Anion Gap 12 12 - 20 See order comments BUN 33(H) 9 - 16 mg/dL See order comments Creatinine Serum 1.19 0.5 - 1.4 mg/dL See order comments eGFR (Calc) 44 See orde r comments Comment: Chronic Kidney Disease: Estimated GFR < 60 mL/min/1.73m2 Severe Kidney Disease: Estimated GFR < 15 mL/min/1.73m2 Glucose 80 60 - 115 mg/dL See order comments Calcium 9.0 8.4 - 10.2 mg/dL See order comments Total Bilirubin 0.4 0.0 - 1.0 mg/dL See order comments AST (SGOT) 21 5 - 31 U/L See orde r comments ALT (SGPT) 20 0 - 31 U/L See orde r comments Total Protein 6.9 6.5 - 8.0 g/dL See order comments Albumin 4.0 3.5 - 5.0 g/dL See order comments Alkaline phosphatase 74 39 - 117 U/L See order comments Blood specimen (specimen) Venous blood / Unknown 07/30/2025 4:03 PM EDT 07/30/2025 4:03 PM EDT us Justin Espitia MD LAB BLOOD ORDERABLES Final Re sult [place] See order comments [place] [address] from Last 3 Months Insurance [facility] Care Teams Instrument And Control Service Person Relationship Specialty Start Date End Date Viola Mack MD [address] [place] [address] PCP - General Internal Medicine 08/21/22
== END 2025-09-24 15:27 | disposition home or self-care (01) ==
LOC: HO.HMCC 09:21
PROVIDERS: PCP Internal Medicine; Visit Provider Internal Medicine
DX: I10 Essential (primary) hypertension (principal); S61.459A Open bite of unspecified hand, initial encounter; W55.01XA Bitten by cat, initial encounter